=== PATIENT | female | born 1950 | race American Indian/Alaskan Native ===

== ENCOUNTER 2020-09-15 12:39 | Inpatient (IN) | payer MEDICARE, BC, SELFPAY ==
[2020-09-15 14:10] VITALS: BP 181/106; PULSE 80; RESP 16; TEMP 37; O2SAT 97; BMI 18.8
--- NOTE | 2020-09-15 15:44 | ECG_ITS ---
Test Reason : HEADACHE, MEMORY LOSS Blood Pressure : / mmHG Vent. Rate : 076 BPM Atrial Rate : 076 BPM P-R Int : 134 ms QRS Dur : 080 ms QT Int : 378 ms P-R-T Axes : 073 052 080 degrees QTc Int : 425 ms Normal sinus rhythm Possible Left atrial enlargement Nonspecific T wave abnormality Anterior leads Abnormal ECG When compared with ECG of 27-JAN-2012 01:21, Nonspecific T wave abnormality has replaced inverted T waves in Anterior leads Referred By: Marcia Vasquez Electronically Signed By:MERLYN TAYLOR MD
--- NOTE | 2020-09-15 15:44 | XR_ITS ---
EXAMINATION: XR CHEST CLINICAL INFORMATION: Memory loss COMPARISON: Chest x-ray 02/17/2014 TECHNIQUE: Frontal portable view of the chest was obtained. 3:48 PM FINDINGS: Lungs are clear. No pulmonary vascular congestion. There is no pleural effusion. The heart size is normal. The cardiac and mediastinal contours are normal. There are calcifications of the thoracic aorta. No acute osseous abnormality. No significant change since prior chest x-ray. XR/XR chest 1V IMPRESSION: There is no acute abnormality of the chest.
--- NOTE | 2020-09-15 15:45 | CT_ITS ---
EXAMINATION: CT HEAD WITHOUT CONTRAST CLINICAL INFORMATION: Sudden onset memory loss. Vomiting. Headache for 2 days. COMPARISON: CT head 01/27/2012 TECHNIQUE: Contiguous axial imaging was performed from the skull base to vertex without intravenous administration of contrast. Coronal and sagittal reformatted images are performed at the CT scanner This CT examination was performed using dose optimization techniques as appropriate, variously including the following: *Automated exposure control *Adjustment of mA and/or kV according to patient size (this includes techniques or standardized protocols for targeted exams where dose is matched to indication/reason for exam; i.e. extremities or head) *Use of iterative reconstruction technique DLP: 574 mGy-cm FINDINGS: There is no evidence of acute intracranial hemorrhage or territorial infarction. No abnormal mass effect or midline shift is seen. Reddy to white matter differentiation is well preserved. No extra-axial fluid collections are identified. The ventricles are normal in size. There is no abnormal attenuation within the brain parenchyma. There are vascular calcifications of the internal carotid arteries bilaterally at the carotid artery siphon. The osseous structures and soft tissues are normal. The mastoid air cells and visualized portions of the paranasal sinuses are well aerated. CT/CT head/brain wo con IMPRESSION: No acute intracranial pathology.
--- NOTE | 2020-09-15 15:47 | ED_ITS ---
HPI - Headache General Chief Complaint: Headache Stated Complaint: headache,memory loss Time Seen by Provider: 09/15/20 15:31 Source: patient Mode of arrival: ambulatory History of Present Illness HPI Narrative: 70-year-old female with a past medical history of anxiety/depression, asthma, GERD, DVT, hyperlipidemia, hypertension, tubular ad enoma of colon and secondary malignant neoplasm of retroperitoneum and peritoneum, presenting to ED with headache x2 days, 1 episode of emesis this morning at 9:30 a.m. followed by confusion/memory loss per . Has reports patient unable to remember people living in the house/son leaving 2 weeks ago. Patient reports to me does not remember having headache, does not remember, to hospital. Reports headache, neck pain, and nausea at present. Patient takes Eliquis. Denies recent fall/head trauma, vision changes, CP/SOB, numbness/tingling MD elicited complaint: headache Related Data Home Medications Medication Instructions Recorded Confirmed albuterol sulfate 90 mcg/actuation 2 puff INHALATION Q4-6H PRN 08/12/20 08/12/20 aerosol inhaler apixaban 2.5 mg tablet 2.5 mg PO BID 08/12/20 08/12/20 budesonide-formoterol HFA 160 2 puff INHALATION BID 08/12/20 08/12/20 mcg-4.5 mcg/actuation aerosol inhaler cholecalciferol (vitamin D3) 25 25 mcg PO DAILY 08/12/20 08/12/20 mcg (1,000 unit) capsule cyanocobalamin (vitamin B-12) 1,000 mcg PO DAILY 08/12/20 08/12/20 1,000 mcg capsule duloxetine 60 mg capsule,delayed 60 mg PO DAILY 08/12/20 08/12/20 release hydromorphone 4 mg tablet 4 mg PO Q6H PRN 08/12/20 08/12/20 omeprazole 20 mg capsule,delayed 20 mg PO DAILY 08/12/20 08/12/20 release Previous Rx's Medication Instructions Recorded zolpidem 10 mg tablet 10 mg PO BEDTIME PRN 90 Days #90 08/11/20 tab cyclobenzaprine 10 mg tablet 10 mg PO BID PRN #60 tab 09/02/20 Allergies Allergy/AdvReac Type Severity Reaction Status Date / Time lisinopril [LISINOPRIL] Allergy Unknown COUGH, Unverified 08/12/20 12:54 constant cough simvastatin [SIMVASTATIN] Allergy Unknown UNKNOWN Unverified 08/12/20 12:54 Review of Systems Review of Systems: Constitutional: No Weight loss, No Fever, No Chills, No Malaise ENT/Mouth: No Nasal Congestion, No sore throat, No Rhinorrhea, No Swallowing Di fficulty, +neck pain Eyes: No Eye Pain, No Swelling, No Redness, No Foreign Body, No Discharge, No V ision Changes Cardiovascular: No Chest Pain, No SOB Respiratory: No Cough, No Sputum, No Dyspnea Gastrointestinal: +Nausea, + Vomiting, No Constipation,+Abdominal pain Genitourinary: No Dysuria Skin: No Skin Lesions, No rash Neuro: No Weakness, No Numbness, No Paresthesias, No Loss of Consciousness, +Headache, +memory loss Yes all other systems are reviewed and are negative [facility] Past Medical History Attestation statement: The following information was validated with the patient. Medical History (Updated 09/15/20 @ 16:38 by OLIVER Evans) Anxiety and depression Asthma Chronic low back pain GERD (gastroesophageal reflux disease) History of DVT (deep vein thrombosis) Hypercholesterolemia Hypertension Insomnia Secondary malignant neoplasm of retroperitoneum and peritoneum Tubular adenoma of colon Vitamin B12 deficiency Vitamin D deficiency Surgical History (Updated 08/11/20 @ 16:41 by Chiara Diggs MD) History of back surgery History of section History of nephroureterectomy History of tonsillectomy History of tubal ligation Retroperitoneal liposarcoma Family History Family History (Updated 08/11/20 @ 13:22 by ESME Hamilton) Father Myocardial infarction CVD (cardiovascular disease) Mother CVD (cardiovascular disease) Stroke Brother Myocardial infarction CVD (cardiovascular disease) Social History Social History Advance Directives: No Advance Directives Information Provided: Yes Physical Exam Vital Signs: Vital Signs: Last Vital Signs Temp 99.2 F 09/15/20 16:10 Pulse 79 09/15/20 16:41 Resp 18 09/15/20 16:41 BP 192/110 H 09/15/20 16:41 Pulse Ox 98 09/15/20 16:41 Body Mass Index 18.8 Const: General: cooperative and healthy appearing Orientation/consciousness: patient oriented x3 Limitations: no limitations HENMT: Head: Yes normal to inspection Ears: hearing grossly normal bilaterally General nose exam: Normal external nose present Face and sinus: Yes normal facial exam Eyes: General: appearance normal, both eyes and all related structures Pupils: Equal, round and reactive pupils present EOM: EOMs intact bilaterally Neck: Neck: Yes normal visual inspection and Yes no meningeal signs Resp: Effort & Inspection: normal respiratory effort Auscultation: clear to auscultation bilaterally, no rhonchi and no wheezes Cardio: Rate: regular rate Heart sounds: S1 normal heart sound present and S2 normal heart sound present GI: Inspection: Yes normal to inspection Palpation (GI): Soft to palpation, Tenderness to palpation present (GI) (diffusely), no guarding and not rigid Skin: Rashes: no rashes Wounds: no wounds Neuro: Other: + memory loss but A&O x3 General: patient oriented x3, tone normal, moves all extremities, no meningeal signs, no focal motor deficits and CN's II-XI intact bilaterally Cranial nerves: Yes Equal, round and reactive pupils present Cognition (Neuro): normal cognition Gait exam (Neuro): Normal gait present Motor exam (neuro): 5/5 motor strength present throughout Coordination: [id number] test normal Extrem: General: Yes normal to inspection Course Course Course Narrative: EKG with inverted Ts in aVL, V1 and V2 (unable to see priors) -1700--ED care transferred to [place] pending labs/imaging, and anticipated admission MDM - Headache MDM Narrative Medical decision making narrative: 70-year-old female with a past medical history of anxiety/depression, asthma, GERD, DVT, hyperlipidemia, hypertension, tubular adenoma of colon and secondary malignant neoplasm of retroperitoneum and peritoneum, presenting to ED with headache x2 days, 1 episode of emesis this morning at 9:30 a.m. followed by confusion/memory loss per . On exam low-grade temp 99.2?, NAD, no focal neuro deficits, A&O x3 but with acute memory loss. Concern for CVA/SAH vs transient amnesia vs infectious or metabolic etiology. Low concern for meningitis/encephalitis Plan: EKG, labs, UA, head CT, CXR, anticipated admission Lab Data Result diagrams: 09/15/20 16:19 09/15/20 16:19 Labs: Lab Results 11/11/20 11/11/20 11/11/20 Range/Units 16:19 16:19 16:19 WBC 4.9 (4.8-10.8) X10*3/uL RBC 4.41 (4.20-5.50) X10*6/uL Hgb 12.9 (12.0-16.0) g/dl Hct 39.0 (37-47) % MCV 88.4 (80-98) fL MCH 29.3 (27.0-33.0) pg MCHC 33.1 (31.0-35.0) g/dl RDW 15.2 (11.0-16.0) % Plt Count 249 (160-400) X10*3/uL MPV 9.3 L (9.4-12.3) fL Immature Gran % (Auto) 0.4 (0.0-0.4) % Neut % (Auto) 69.6 (45-73) % Lymph % (Auto) 20.5 (20-40) % [place] % (Auto) 5.9 (2-11) % Eos % (Auto) 2.8 (0-4) % Baso % (Auto) 0.8 (0-2) % Lymph # (Auto) 1.0 L (1.2-4.9) X10*3/uL [place] # (Auto) 0.3 (0.1-1.2) X10*3/uL Eos # (Auto) 0.1 (0.0-0.4) X10*3/uL Baso # (Auto) 0.0 (0.0-0.2) X10*3/uL Abs Immat Gran (auto) 0.02 (0.00-0.03) X10*3/uL Absolute Neuts (auto) 3.4 (2.0-8.3) X10*3/uL Absolute Nucleated RBC 0.000 (0.0-0.012) X10*3/uL Nucleated RBC % (auto) 0.0 (0.0-0.2) /100WBC PT (10.8-13.0) SEC INR (0.9-1.1) APTT (24.1-38.0) SEC Hold Blue Top SEE NOTE Sodium 137 (135-145) mmol/L Potassium 4.1 (3.3-5.1) mmol/l Chloride 103 (96-108) mmol/L Carbon Dioxide 23 (22-29) mmol/L Anion Gap 15 (12-20) BUN 14 (9-16) mg/dL Creatinine 0.92 (0.5-1.4) mg/dL Estim Creat Clear Calc 48.4 Estimated GFR > 60 Random Glucose 96 (60-115) mg/dL Calcium 9.1 (8.4-10.2) mg/dL Magnesium 1.8 (1.6-2.6) mg/dL Total Bilirubin 0.5 (0.0-1.0) mg/dL Direct Bilirubin 0.2 (0.0-0.5) mg/dL AST 14 (5-31) U/L ALT 9 (0-31) U/L Alkaline Phosphatase 96 (39-117) U/L Troponin I High Sens (<3.5-17.0) ng/L Total Protein 6.1 L (6.5-8.0) g/dL Albumin 3.7 (3.5-5.0) g/dL Lipase (8-78) U/L Urine Color Urine Appearance Urine pH (5.0-8.0) Ur Specific [place] (1.005-1.025) Urine Protein (NEG-TRACE) MG/DL Urine Glucose (UA) (NEG) MG/DL Urine Ketones (NEG) MG/DL Urine Blood (NEG) Urine Nitrite (NEG) Ur Leukocyte Esterase (NEG) 09/15/20 09/15/20 09/15/20 Range/Units 16:19 16:19 16:19 WBC (4.8-10.8) X10*3/uL RBC (4.20-5.50) X10*6/uL Hgb (12.0-16.0) g/dl Hct (37-47) % MCV (80-98) fL MCH (27.0-33.0) pg MCHC (31.0-35.0) g/dl RDW (11.0-16.0) % Plt Count (160-400) X10*3/uL MPV (9.4-12.3) fL Immature Gran % (Auto) (0.0-0.4) % Neut % (Auto) (45-73) % Lymph % (Auto) (20-40) % [place] % (Auto) (2-11) % Eos % (Auto) (0-4) % Baso % (Auto) (0-2) % Lymph # (Auto) (1.2-4.9) X10*3/uL [place] # (Auto) (0.1-1.2) X10*3/uL Eos # (Auto) (0.0-0.4) X10*3/uL Baso # (Auto) (0.0-0.2) X10*3/uL Abs Immat Gran (auto) (0.00-0.03) X10*3/uL Absolute Neuts (auto) (2.0-8.3) X10*3/uL Absolute Nucleated RBC (0.0-0.012) X10*3/uL Nucleated RBC % (auto) (0.0-0.2) /100WBC PT 11.0 (10.8-13.0) SEC INR 0.9 (0.9-1.1) APTT 36.1 (24.1-38.0) SEC Hold Blue Top Sodium (135-145) mmol/L Potassium (3.3-5.1) mmol/l Chloride (96-108) mmol/L Carbon Dioxide (22-29) mmol/L Anion Gap (12-20) BUN (9-16) mg/dL Creatinine (0.5-1.4) mg/dL Estim Creat Clear Calc Estimated GFR Random Glucose (60-115) mg/dL Calcium (8.4-10.2) mg/dL Magnesium (1.6-2.6) mg/dL Total Bilirubin (0.0-1.0) mg/dL Direct Bilirubin (0.0-0.5) mg/dL AST (5-31) U/L ALT (0-31) U/L Alkaline Phosphatase (39-117) U/L Troponin I High Sens 10.2 (<3.5-17.0) ng/L Total Protein (6.5-8.0) g/dL Albumin (3.5-5.0) g/dL Lipase 11 (8-78) U/L Urine Color Urine Appearance Urine pH (5.0-8.0) Ur Specific [place] (1.005-1.025) Urine Protein (NEG-TRACE) MG/DL Urine Glucose (UA) (NEG) MG/DL Urine Ketones (NEG) MG/DL Urine Blood (NEG) Urine Nitrite (NEG) Ur Leukocyte Esterase (NEG) 09/15/20 Range/Units 16:24 WBC (4.8-10.8) X10*3/uL RBC (4.20-5.50) X10*6/uL Hgb (12.0-16.0) g/dl Hct (37-47) % MCV (80-98) fL MCH (27.0-33.0) pg MCHC (31.0-35.0) g/dl RDW (11.0-16.0) % Plt Count (160-400) X10*3/uL MPV (9.4-12.3) fL Immature Gran % (Auto) (0.0-0.4) % Neut % (Auto) (45-73) % Lymph % (Auto) (20-40) % [place] % (Auto) (2-11) % Eos % (Auto) (0-4) % Baso % (Auto) (0-2) % Lymph # (Auto) (1.2-4.9) X10*3/uL [place] # (Auto) (0.1-1.2) X10*3/uL Eos # (Auto) (0.0-0.4) X10*3/uL Baso # (Auto) (0.0-0.2) X10*3/uL Abs Immat Gran (auto) (0.00-0.03) X10*3/uL Absolute Neuts (auto) (2.0-8.3) X10*3/uL Absolute Nucleated RBC (0.0-0.012) X10*3/uL Nucleated RBC % (auto) (0.0-0.2) /100WBC PT (10.8-13.0) SEC INR (0.9-1.1) APTT (24.1-38.0) SEC Hold Blue Top Sodium (135-145) mmol/L Potassium (3.3-5.1) mmol/l Chloride (96-108) mmol/L Carbon Dioxide (22-29) mmol/L Anion Gap (12-20) BUN (9-16) mg/dL Creatinine (0.5-1.4) mg/dL Estim Creat Clear Calc Estimated GFR Random Glucose (60-115) mg/dL Calcium (8.4-10.2) mg/dL Magnesium (1.6-2.6) mg/dL Total Bilirubin (0.0-1.0) mg/dL Direct Bilirubin (0.0-0.5) mg/dL AST (5-31) U/L ALT (0-31) U/L Alkaline Phosphatase (39-117) U/L Troponin I High Sens (<3.5-17.0) ng/L Total Protein (6.5-8.0) g/dL Albumin (3.5-5.0) g/dL Lipase (8-78) U/L Urine Color YELLOW Urine Appearance CLEAR Urine pH 5.5 (5.0-8.0) Ur Specific [place] 1.020 (1.005-1.025) Urine Protein NEG (NEG-TRACE) MG/DL Urine Glucose (UA) NEG (NEG) MG/DL Urine Ketones NEG (NEG) MG/DL Urine Blood NEG (NEG) Urine Nitrite NEG (NEG) Ur Leukocyte Esterase NEG (NEG) Discharge Plan Discharge Clinical Impression: Memory deficit, Headache Prescriptions: No Action zolpidem 10 mg tablet 10 mg PO BEDTIME PRN (Reason: insomnia) 90 Days Qty: 90 RF: 0 cyclobenzaprine 10 mg tablet 10 mg PO BID PRN (Reason: muscle spasm) Qty: 60 RF: 3 Eliquis 2.5 mg tablet 2.5 mg PO BID RF: 0 duloxetine 60 mg capsule,delayed release(DR/EC) 60 mg PO DAILY RF: 0 hydromorphone 4 mg tablet 4 mg PO Q6H PRNRF: 0 omeprazole 20 mg capsule,delayed release(DR/EC) 20 mg PO DAILY RF: 0 albuterol sulfate [ProAir HFA] 90 mcg/actuation HFA aerosol inhaler 2 puff inhalation Q4-6H PRNRF: 0 budesonide-formoterol [Symbicort] 160-4.5 mcg/actuation HFA aerosol inhaler 2 puff inhalation BID RF: 0 cholecalciferol (vitamin D3) 25 mcg (1,000 unit) capsule 25 mcg PO DAILY RF: 0 cyanocobalamin (vitamin B-12) 1,000 mcg capsule 1,000 mcg PO DAILY RF: 0
--- NOTE | 2020-09-15 15:47 | CT_ITS ---
EXAMINATION: CT ABDOMEN AND PELVIS WITH CONTRAST CLINICAL INFORMATION: Diffuse abdominal pain. Tenderness. COMPARISON: CT scan abdomen 07/24/2018. MR abdomen 06/17/2018 TECHNIQUE: Multidetector volumetric images were obtained from the superior aspect of the liver through the pubic symphysis following administration 85 mL of Omnipaque 350 intravenous contrast. Sagittal and coronal reformatted images were obtained on the technologist's workstation. Oral contrast: No This CT examination was performed using dose optimization techniques as appropriate, variously including the following: *Automated exposure control *Adjustment of mA and/or kV according to patient size (this includes techniques or standardized protocols for targeted exams where dose is matched to indication/reason for exam; i.e. extremities or head) *Use of iterative reconstruction technique DLP: 454 mGy-cm FINDINGS: LUNG BASES: The visualized lung bases are unremarkable. LIVER, GALLBLADDER, AND BILIARY TREE: The liver is normal in size, shape, and attenuation. No focal hepatic lesion or biliary ductal dilatation is present. The gallbladder is unremarkable with no evidence of radiopaque gallstones, gallbladder wall thickening, or obvious pericholecystic inflammatory changes. PANCREAS: Unremarkable. SPLEEN: Unremarkable. ADRENAL GLANDS: Unremarkable. KIDNEYS AND URETERS: Right kidney is absent. The left kidney is normal. No calculus or hydronephrosis. BLADDER: Unremarkable. GASTROINTESTINAL TRACT: Status post partial resection right colon. Surgical anastomosis at the hepatic flexure. Surgical sutures also associated with the stomach and proximal small bowel loops, bypass surgery. No acute changes of the bowel. There is no bowel wall thickening /edema. There is no bowel obstruction. There is a moderate volume of stool in the colon. The small bowel loops are unremarkable.. ABDOMINAL WALL: No significant hernia is appreciated. LYMPH NODES: Normal. VASCULAR: Atherosclerotic vascular calcifications of aorta and iliac arteries. There is no aneurysm. PELVIC VISCERA: Unremarkable. OSSEOUS STRUCTURES: Multilevel degenerative spondylosis spine. Grade 1 anterolisthesis of L4 on L5 due to facet joint disease. There is no spondylolysis. CT/CT abdomen pelvis w con IMPRESSION: No acute abnormality CT scan abdomen and pelvis.
[2020-09-15 16:10] VITALS: BP 163/96; PULSE 74; RESP 18; TEMP 37.3; O2SAT 95
[2020-09-15 16:27] LABS: MANUAL DIFF FLAG NO
[2020-09-15 16:29] LABS: Glucose Urine UA NEG (NEG); Leukocyte Esterase Urine NEG (NEG); Nitrite Urine NEG (NEG); PH 5.5 (5.0-8.0); Urine Blood NEG (NEG); Urine Ketones NEG (NEG); Urine Protein NEG (NEG-TRACE)
[2020-09-15 16:30] LABS: Appearance Urine CLEAR; Color Urine YELLOW
[2020-09-15 16:33] LABS: Basophils Percent Auto 0.8 % (0-2); Eosinophils Absolute Auto 0.1 X10*3/uL (0.0-0.4); Eosinophils Percent Auto 2.8 % (0-4); Hemoglobin 12.9 g/dl (12.0-16.0); Imm Gran Abs Auto 0.02 X10*3/uL (0.00-0.03); Imm Gran Pct Auto 0.4 % (0.0-0.4); Lymphocytes Percent Auto 20.5 % (20-40); Mean Corpuscular HGB Conc 33.1 g/dl (31.0-35.0); Mean Corpuscular Hemoglobin 29.3 pg (27.0-33.0); Mean Corpuscular Volume 88.4 fL (80-98); Mean Platelet Volume 9.3 fL (9.4-12.3); Monocytes Absolute Auto 0.3 X10*3/uL (0.1-1.2); Monocytes Percent Auto 5.9 % (2-11); Neutrophils Absolute Auto 3.4 X10*3/uL (2.0-8.3); Neutrophils Percent Auto 69.6 % (45-73); Platelet Count 249 X10*3/uL (160-400); Red Blood Count 4.41 X10*6/uL (4.20-5.50); Red Cell Distribution Width 15.2 % (11.0-16.0); White Blood Count 4.9 X10*3/uL (4.8-10.8)
[2020-09-15 16:34] LABS: INTERNATIONAL NORM RATIO 0.9 (0.9-1.1)
[2020-09-15] MEDS: ondansetron HCL 4 MG/2 ML VIAL IVPUSH (16:36)
[2020-09-15 16:37] LABS: Partial Thromboplastin Time 36.1 SEC (24.1-38.0)
[2020-09-15 16:41] VITALS: BP 192/110; PULSE 79; RESP 18; O2SAT 98
[2020-09-15 17:05] LABS: Alanine Aminotransferase 9 U/L (0-31); Albumin Level 3.7 g/dL (3.5-5.0); Alkaline Phosphatase 96 U/L (39-117); Anion Gap 15 (12-20); Aspartate Amino Transferase 14 U/L (5-31); Bilirubin Direct 0.2 mg/dL (0.0-0.5); Bilirubin Total 0.5 mg/dL (0.0-1.0); Blood Urea Nitrogen 14 mg/dL (9-16); Calcium 9.1 mg/dL (8.4-10.2); Carbon Dioxide 23 mmol/L (22-29); Chloride 103 mmol/L (96-108); Creatinine Clr Calc Pharmacy 48.4; Estimated Glomerular Filt Rate > 60; Glucose Random 96 mg/dL (60-115); Lipase 11 U/L (8-78); Magnesium 1.8 mg/dL (1.6-2.6); Potassium 4.1 mmol/l (3.3-5.1); Sodium 137 mmol/L (135-145); Total Protein 6.1 g/dL (6.5-8.0)
[2020-09-15 17:08] LABS: Troponin-I High Sensitivity 10.2 ng/L (<3.5-17.0)
[2020-09-15] MEDS: iohexoL 350 MG/ML 100 ML INFUS..BTL IV (18:07)
[2020-09-15 18:37] LABS: Amphetamine Screen Urine Not Detected (Not Detect); Barbiturates, Urine Not Detected (Not Detect); Benzodiazepines Screen Urine Not Detected (Not Detect); Cannabinoid Screen Urine POSITIVE (Not Detect); Cocaine Screen Urine Not Detected (Not Detect); Opiate Screen Urine POSITIVE (Not Detect); Phencyclidine Screen Urine Not Detected (Not Detect)
[2020-09-15 18:55] VITALS: BP 177/102; PULSE 83; RESP 16; TEMP 37.2; O2SAT 98
[2020-09-15 19:36] LABS: Salicylate < 5.0 mg/dL (15-30)
[2020-09-15 19:49] LABS: Acetaminophen LAB 1 mcg/mL (<30)
[2020-09-15 20:00] VITALS: BP 174/104; PULSE 82; RESP 18; TEMP 36.6
[2020-09-15] MEDS: Acetaminophen 325 MG TABLET 650 MG PO (21:16)
[2020-09-15 22:40] LABS: COVID-19 Test Negative (Negative)
--- NOTE | 2020-09-16 | CT_ITS ---
EXAMINATION: CT ANGIOGRAM HEAD CT ANGIOGRAM NECK CLINICAL INFORMATION: Sudden onset memory loss. COMPARISON: CT head from 09/15/2020. TECHNIQUE: Initial noncontrast process development manager imaging of the head and neck was performed. Comparison is made with noncontrast head CT from earlier today. Test bolus sequences followed by intravenous administration 70 mL of Omnipaque 350. Helical imaging was performed in the axial plane from the aortic arch to the skull vertex. Delayed postcontrast imaging of the head was also performed. The data was processed at the special procedure technologist's workstation for generation of MIP sequences. Angled MIPs and volume rendered reformatted images were also generated at an offline 3D workstation. Stenoses are assessed in accordance with NASCET criteria unless otherwise indicated. DLP: 1549 mGy-cm This CT examination was performed using dose optimization techniques as appropriate, variously including the following: *Automated exposure control. *Adjustment of mA and/or kV according to patient size (this includes techniques or standardized protocols for targeted exams where dose is matched to indication/reason for exam; i.e. extremities or head). *Use of iterative reconstruction technique. FINDINGS: CT Head: There is no evidence of acute intracranial hemorrhage or edematous territorial infarction. A few foci of hypoattenuation in the periventricular and deep white matter are consistent with mild microangiopathy. Reddy-white matter differentiation is preserved. The ventricles are normal in size and configuration. No evidence for obstructive hydrocephalus. No abnormal mass effect or midline shift. No extra-axial fluid collections. No pathologic intra-axial enhancement or regional oligemia. Partially calcified 1.2 cm subcutaneous inclusion cyst along the posterior vertex. No acute soft tissue or osseous abnormalities. Moderate mucosal thickening of the paranasal sinuses. The mastoid air cells and middle ear cavities are clear. CT Neck: The thyroid gland and remaining cervical soft tissues are within normal limits. Straightening of the normal cervical lordosis. Advanced degenerative disc disease from C4-C7 with disc-osteophyte complexes. Facet and uncovertebral joint arthropathy leads to osseous encroachment on the neural foramina from C4 to C7. CT Upper Chest: Coronary artery calcifications. Mild diffuse peribronchial wall thickening. Otherwise, the visualized lung apices and upper mediastinum are within normal limits. Neck CTA: Aortic Arch: Normal contour and caliber with mild calcific atherosclerotic disease. Classic 3 vessel branching pattern of the aortic arch. Great Vessel Origins: No significant stenosis of the branch origins. Right Common Carotid Artery: Normal opacification without focal stenosis or occlusion. Cervical Right Internal Carotid Artery: Calcific atherosclerotic disease of the carotid bulb and proximal internal carotid artery causing less than 50% stenosis. Left Common Carotid Artery: Normal opacification without focal stenosis or occlusion. Cervical Left Internal Carotid Artery: Calcific atherosclerotic disease of the carotid bulb and proximal internal carotid artery causing less than 50% stenosis. Cervical Right Vertebral Artery: Dominant. Calcific atherosclerotic disease causes mild narrowing of the origin. Otherwise, normal opacification without focal stenosis or occlusion. Cervical Left Vertebral Artery: Atherosclerotic disease causes high-grade stenosis of the origin. There is diminutive irregular opacification of the V1 and proximal V2 segment. Reconstitution of relatively normal caliber of the distal V2 segment at the level of C2. Relatively normal opacification of the V3 segment. Brain CTA: Intracranial Internal Carotid Arteries: Calcific atherosclerotic disease of the intracranial internal carotid arteries without occlusion or flow-limiting stenosis. Normal contrast opacification of the petrous, cavernous, paraophthalmic, and supraclinoid segments of the internal carotid arteries without focal stenosis. Right Anterior Cerebral Artery: Normal A1 segment. Normal opacification of the distal segments of the XAVI. Left Anterior Cerebral Artery: Normal A1 segment. Normal opacification of the distal segments of the XVAI. Anterior Communicating Artery: Normal. Right Middle Cerebral Artery: Normal opacification of the M1 segment of the MCA without focal stenosis or occlusion. Normal arborization of the distal segments. Left Middle Cerebral Artery: Normal opacification of the M1 segment of the MCA without focal stenosis or occlusion. Normal arborization of the distal segments. Right Vertebral Artery: The proximal V4 segment is normal in appearance. Normal opacification of the proximal segments of the posterior inferior cerebellar artery. Left Vertebral Artery: Mild to moderate irregular narrowing of the V4 segment of the left vertebral artery. Normal opacification of the proximal segments of the posterior inferior cerebellar artery. Basilar Artery: Normal opacification without focal stenosis or occlusion. Normal appearance of the proximal superior cerebellar arteries. Right Posterior Cerebral Artery: Normal P1 segment. Normal opacification of the distal segments of the HEAT TREATER. Left Posterior Cerebral Artery: The P1 segment is mildly diminutive. origin of the HEAT TREATER with robust opacification of the posterior communicating artery. Normal opacification of the distal segments of the HEAT TREATER. Normal opacification of the superior sagittal, straight, transverse, and sigmoid sinuses. CT/CT angio head neck IMPRESSION: 1. No evidence of acute intracranial hemorrhage or edematous territorial infarction. 2. Mild underlying microangiopathy. 3. CTA of the head and neck without proximal occlusion. 4. Calcific atherosclerotic disease causes less than 50% stenosis of the bilateral carotid bulbs. Atherosclerotic high-grade narrowing of the origin of the left vertebral artery with diminutive opacification of the V1 and V2 segments. There is reconstitution of the V3 segment of the left vertebral artery. Atherosclerotic disease causes mild to moderate narrowings of the left greater than right V4 segments of the bilateral vertebral arteries. 5. Moderate multilevel degenerative spondyloarthropathy of the cervical spine.
--- NOTE | 2020-09-16 00:23 | MR_ITS ---
EXAMINATION: MR BRAIN WITHOUT CONTRAST CLINICAL INFORMATION: Amnesia. COMPARISON: CTA head and neck from 09/16/2020. TECHNIQUE: MRI of the brain was obtained using routine sequences without contrast. FINDINGS: No focal restricted diffusion is demonstrated to suggest acute or subacute cerebral ischemia. No evidence of acute or chronic hemorrhagic products on heme-sensitive imaging. Basal ganglia mineralization. Few scattered periventricular and deep white matter T2 FLAIR hyperintensities consistent with mild underlying microangiopathy. The ventricles are normal in morphology and size. No abnormal mass effect. No midline shift. Normal appearance of the pituitary gland. No abnormalities of the posterior fossa with normal appearance of the brainstem and cerebellum. Normal arterial and venous vascular flow voids are present. There is a 1.2 cm subcutaneous inclusion cyst along the posterior vertex. Normal, homogeneous marrow signal. Mild mucosal thickening of the paranasal sinuses. Trace left-sided mastoid effusion. No signal abnormalities within the right-sided mastoid. MR/MR head/brain wo con IMPRESSION: 1. No acute intracranial abnormalities. 2. Mild underlying microangiopathy.
--- NOTE | 2020-09-16 00:27 | PC.NURSE ---
report given, pt ready for transport to floor.
[2020-09-16 00:44] VITALS: BP 168/88; PULSE 77; RESP 18; TEMP 36.6; O2SAT 97
[2020-09-16 01:01] VITALS: BMI 18.9
[2020-09-16] MEDS: 0.9 % Sodium Chloride Flush 3 ML SYRINGE IVFLUSH ×2 (01:06→10:41)
[2020-09-16] MEDS: Zolpidem Tartrate 5 MG TABLET 10 MG PO (01:59)
[2020-09-16] MEDS: Morphine Sulfate 4 MG/ML CARTRIDGE IVPUSH (02:00)
[2020-09-16 03:57] VITALS: BP 122/72; PULSE 80; RESP 18; TEMP 36.9; O2SAT 98
--- NOTE | 2020-09-16 05:58 | P.HPHOSP_ITS ---
History of Present Illness Date of Service: 09/15/20 Chief Complaint: memory loss, headache this is a 70-year-old female with past medical history of DVT, liposarcoma chronic back pain, asthma, GERD, anxiety and depression who presents to the hospital with memory loss. per patient and her at bedside patient woke up this morning, was nauseous but then started asking strange questions, she could remember her son did not live with them anymore, she is not remember that he travel 2 weeks ago to [place], she kept asking the same information and was not able to retain any in your information. She was not able to remember any days, she could not remember some of her grandchildren's names, she was able to remember her , she does not remember the events of the prior days. She felt soreness in her arms with no weakness tingling or numbness in any of her extremities. She had no slurred speech or any drooping of the face. According to her he feels that her symptoms are improving since being in the hospital. Patient is complaining of a severe headache that is frontal and also occipital in location. She denies any change in vision, no chest pain, no shortness of breath, no ab dominal pain nausea or vomiting, no diarrhea or constipation at this time. No urinary symptoms and no lower extremity edema. On arrival to the ED hemodynamically stable with a blood pressure of 181/106, labs unremarkable, UDS positive for urine opiates, and marijuana. COVID-[address] head showed no acute intracranial abnormality past medical history: Liposarcoma, DVT, asthma, chronic back pain, anxiety and depression, past surgical history: removal of liposarcoma from abdomen, reports radical abdominal resection in November 2018 with residual abdominal pain since. family history: Significant for coronary artery disease Social history: Comes from home, lives with her , denies any tobacco alcohol or illicit drugs at this time Review of Systems Review of Systems: Yes all other systems are reviewed and are negative [facility] Medical History Anxiety and depression Asthma Chronic low back pain GERD (gastroesophageal reflux disease) History of DVT (deep vein thrombosis) Hypercholesterolemia Hypertension Insomnia Secondary malignant neoplasm of retroperitoneum and peritoneum Tubular adenoma of colon Vitamin B12 deficiency Vitamin D deficiency Family History (Updated 08/11/20 @ 13:22 by Yasmin Arreguin Fabby) Father Myocardial infarction CVD (cardiovascular disease) Mother CVD (cardiovascular disease) Stroke Brother Myocardial infarction CVD (cardiovascular disease) Surgical History History of back surgery History of section History of nephroureterectomy History of tonsillectomy History of tubal ligation Retroperitoneal liposarcoma Social History Household Members: Spouse and Family Housing: House Do you presently have visiting nurse or other home services: No Alcohol intake: never Smoking Status: Never smoker Use of substances other than those prescribed or required for medical reasons: Yes Substance Use Type: Marijuana and Other Substance Use Type Other:: THC Substance Use Frequency: Daily Have you been hit, kicked, punched, or otherwise hurt by someone within the past year? If so, by whom?: No Do you feel safe in your current relationship?: Yes Is there a partner from a previous relationship who is making you feel unsafe now?: No Are you made to feel afraid or neglected: No Advance Directives: No Advance Directives Information Provided: Yes Do you have thoughts of harming others: None Do you have a plan to hurt others: No Plan Recently lost weight without trying: Yes Meds Allergies Allergy/AdvReac Type Severity Reaction Status Date / Time lisinopril [LISINOPRIL] Allergy Intermediate COUGH, Verified 09/16/20 01:02 constant cough simvastatin [SIMVASTATIN] Allergy Mild Confusion Verified 09/16/20 01:03 Home Medications Medication Instructions Recorded Confirmed Type albuterol sulfate 90 mcg/actuation 2 puff INHALATION Q4-6H PRN 08/12/20 09/15/20 History aerosol inhaler apixaban 2.5 mg tablet 5 mg PO BID 08/12/20 09/15/20 History budesonide-formoterol HFA 160 2 puff INHALATION BID 08/12/20 09/15/20 History mcg-4.5 mcg/actuation aerosol inhaler cholecalciferol (vitamin D3) 25 25 mcg PO DAILY 08/12/20 09/15/20 History mcg (1,000 unit) capsule cyanocobalamin (vitamin B-12) 1,000 mcg PO DAILY 08/12/20 09/15/20 History 1,000 mcg capsule duloxetine 60 mg capsule,delayed 60 mg PO DAILY 08/12/20 09/15/20 History release hydromorphone 4 mg tablet 4 mg PO Q6H PRN 08/12/20 09/15/20 History omeprazole 20 mg capsule,delayed 20 mg PO DAILY 08/12/20 09/15/20 History release sucralfate 10 ml PO BID 09/15/20 09/15/20 History Physical Exam Vital Signs and Narrative: Vital Signs: Last Vital Signs Temp 98.5 F 09/16/20 03:57 Pulse 80 09/16/20 03:57 Resp 18 09/16/20 03:57 BP 122/72 09/16/20 03:57 Pulse Ox 98 09/16/20 03:57 Body Mass Index 18.9 Const: General: cooperative, no acute distress and ill appearing Orientation/consciousness: patient oriented x3 Eyes: General: appearance normal, both eyes and all related structures Pupils: Equal, round and reactive pupils present Resp: Effort & Inspection: normal respiratory effort and able to speak in complete sentences Auscultation: clear to auscultation bilaterally Cardio: Rate: regular rate Rhythm: regular rhythm GI: Palpation (GI): Soft to palpation Auscultation: normal bowel sounds Skin: General skin exam: no rashes or lesions noted Neuro: Other: 5/5 strength, no facial asymmetry, cranial nerves intact, General: patient oriented x3 Cranial nerves: Yes Equal, round and reactive pupils present Cognition (Neuro): normal cognition Extrem: General: Yes normal to inspection and Yes no pedal edema Results Labs CBC and Chem 7: 09/15/20 16:19 09/15/20 16:19 Labs: Laboratory Results - last 24 hr 09/15/20 09/15/20 09/15/20 16:19 16:19 16:19 MCV 88.4 MCH 29.3 MCHC 33.1 RDW 15.2 Plt Count 249 MPV 9.3 L Immature Gran % (Auto) 0.4 Neut % (Auto) 69.6 Lymph % (Auto) 20.5 [place] % (Auto) 5.9 Eos % (Auto) 2.8 Baso % (Auto) 0.8 Lymph # (Auto) 1.0 L [place] # (Auto) 0.3 Eos # (Auto) 0.1 Baso # (Auto) 0.0 Abs Immat Gran (auto) 0.02 Absolute Neuts (auto) 3.4 Absolute Nucleated RBC 0.000 Nucleated RBC % (auto) 0.0 PT INR APTT Hold Blue Top SEE NOTE Anion Gap 15 Estim Creat Clear Calc 48.4 Estimated GFR > 60 Random Glucose 96 Calcium 9.1 Magnesium 1.8 Total Bilirubin 0.5 Direct Bilirubin 0.2 AST 14 ALT 9 Alkaline Phosphatase 96 Troponin I High Sens Total Protein 6.1 L Albumin 3.7 Lipase Urine Color Urine Appearance Urine pH Ur Specific [place] Urine Protein Urine Glucose (UA) Urine Ketones Urine Blood Urine Nitrite Ur Leukocyte Esterase Salicylates Urine Opiates Screen Acetaminophen Ur Barbiturates Screen Ur Phencyclidine Scrn Ur Amphetamines Screen U Benzodiazepines Scrn Urine Cocaine Screen U Marijuana (THC) Screen COVID-19 (KAY) COVID-19 sfilatino 09/15/20 09/15/20 09/15/20 16:19 16:19 16:19 MCV MCH MCHC RDW Plt Count MPV Immature Gran % (Auto) Neut % (Auto) Lymph % (Auto) [place] % (Auto) Eos % (Auto) Baso % (Auto) Lymph # (Auto) [place] # (Auto) Eos # (Auto) Baso # (Auto) Abs Immat Gran (auto) Absolute Neuts (auto) Absolute Nucleated RBC Nucleated RBC % (auto) PT 11.0 INR 0.9 APTT 36.1 Hold Blue Top Anion Gap Estim Creat Clear Calc Estimated GFR Random Glucose Calcium Magnesium Total Bilirubin Direct Bilirubin AST ALT Alkaline Phosphatase Troponin I High Sens 10.2 Total Protein Albumin Lipase 11 Urine Color Urine Appearance Urine pH Ur Specific [place] Urine Protein Urine Glucose (UA) Urine Ketones Urine Blood Urine Nitrite Ur Leukocyte Esterase Salicylates Urine Opiates Screen Acetaminophen Ur Barbiturates Screen Ur Phencyclidine Scrn Ur Amphetamines Screen U Benzodiazepines Scrn Urine Cocaine Screen U Marijuana (THC) Screen COVID-19 (KAY) COVID-19 sfilatino 09/15/20 09/15/20 09/15/20 16:19 16:24 17:52 MCV MCH MCHC RDW Plt Count MPV Immature Gran % (Auto) Neut % (Auto) Lymph % (Auto) [place] % (Auto) Eos % (Auto) Baso % (Auto) Lymph # (Auto) [place] # (Auto) Eos # (Auto) Baso # (Auto) Abs Immat Gran (auto) Absolute Neuts (auto) Absolute Nucleated RBC Nucleated RBC % (auto) PT INR APTT Hold Blue Top Anion Gap Estim Creat Clear Calc Estimated GFR Random Glucose Calcium Magnesium Total Bilirubin Direct Bilirubin AST ALT Alkaline Phosphatase Troponin I High Sens Total Protein Albumin Lipase Urine Color YELLOW Urine Appearance CLEAR Urine pH 5.5 Ur Specific [place] 1.020 Urine Protein NEG Urine Glucose (UA) NEG Urine Ketones NEG Urine Blood NEG Urine Nitrite NEG Ur Leukocyte Esterase NEG Salicylates < 5.0 L Urine Opiates Screen POSITIVE H Acetaminophen 1 Ur Barbiturates Screen Not Detected Ur Phencyclidine Scrn Not Detected Ur Amphetamines Screen Not Detected U Benzodiazepines Scrn Not Detected Urine Cocaine Screen Not Detected U Marijuana (THC) Screen POSITIVE H COVID-19 (KAY) COVID-19 Clin Com 09/15/20 21:55 MCV MCH MCHC RDW Plt Count MPV Immature Gran % (Auto) Neut % (Auto) Lymph % (Auto) [place] % (Auto) Eos % (Auto) Baso % (Auto) Lymph # (Auto) [place] # (Auto) Eos # (Auto) Baso # (Auto) Abs Immat Gran (auto) Absolute Neuts (auto) Absolute Nucleated RBC Nucleated RBC % (auto) PT INR APTT Hold Blue Top Anion Gap Estim Creat Clear Calc Estimated GFR Random Glucose Calcium Magnesium Total Bilirubin Direct Bilirubin AST ALT Alkaline Phosphatase Troponin I High Sens Total Protein Albumin Lipase Urine Color Urine Appearance Urine pH Ur Specific [place] Urine Protein Urine Glucose (UA) Urine Ketones Urine Blood Urine Nitrite Ur Leukocyte Esterase Salicylates Urine Opiates Screen Acetaminophen Ur Barbiturates Screen Ur Phencyclidine Scrn Ur Amphetamines Screen U Benzodiazepines Scrn Urine Cocaine Screen U Marijuana (THC) Screen COVID-19 (KAY) Negative COVID-19 Clin Com See Note Imaging Radiologist's Impressions: Impressions Chest X-Ray 09/15/20 15:44 IMPRESSION: There is no acute abnormality of the chest. Head CT 09/15/20 15:45 IMPRESSION: No acute intracranial pathology. Abdomen/Pelvis CT 09/15/20 15:47 IMPRESSION: No acute abnormality CT scan abdomen and pelvis. Assessment and Plan (1) Memory deficit: Status: Acute (2) Headache: Qualifiers: Headache chronicity pattern: chronic headache Headache type: unspecified Intractability: not intractable Qualified Code(s): R51.9 - Headache, unspecified; G89.29 - Other chronic pain Status: Acute (3) Chronic low back pain: Status: Acute (4) Anxiety and depression: Status: Acute (5) History of DVT (deep vein thrombosis): Status: Acute this is a 70-year-old female with past medical history as mentioned above who presents to the hospital with memory loss as well as headache. # amnesia - possibly secondary to CVA - patient also has a significant headache - CT head was negative for any acute intracranial pathology - has patient underwent CT abdomen with contrast, CT angiogram of head and neck cannot be done on the same day per radiology plan: - Will order CT angiogram for morning, as well as brain MRI - admit to telemetry - will monitor symptoms # headache - possibly in response to acute CVA - frontal as well as occipital not associated with any rhinorrhea, or lacrimation plan: - Resume her home Dilaudid, Tylenol p.r.n. # history of DVT - continue Eliquis # anxiety and depression - continue duloxetine # chronic back pain and abdominal pain - abdominal CT negative for any changes - continue Dilaudid home dose # insomnia - continue zolpidem DVT prophylaxis: Eliquis
[2020-09-16] MEDS: HYDROmorphone HCl 2 MG TABLET 4 MG PO ×2 (06:00→12:26)
[2020-09-16 06:59] LABS: MANUAL DIFF FLAG NO
[2020-09-16] MEDS: iohexoL 350 MG/ML 100 ML INFUS..BTL 70 ML IV (07:00)
[2020-09-16 07:12] LABS: Basophils Absolute Auto 0.1 X10*3/uL (0.0-0.2); Basophils Percent Auto 0.9 % (0-2); Eosinophils Absolute Auto 0.2 X10*3/uL (0.0-0.4); Eosinophils Percent Auto 4.1 % (0-4); Hematocrit 40.4 % (37-47); Hemoglobin 13.3 g/dl (12.0-16.0); Imm Gran Abs Auto 0.02 X10*3/uL (0.00-0.03); Imm Gran Pct Auto 0.4 % (0.0-0.4); Lymphocytes Absolute Auto 2.1 X10*3/uL (1.2-4.9); Lymphocytes Percent Auto 36.5 % (20-40); Mean Corpuscular HGB Conc 32.9 g/dl (31.0-35.0); Mean Corpuscular Hemoglobin 29.5 pg (27.0-33.0); Mean Corpuscular Volume 89.6 fL (80-98); Mean Platelet Volume 9.7 fL (9.4-12.3); Monocytes Absolute Auto 0.5 X10*3/uL (0.1-1.2); Monocytes Percent Auto 9.6 % (2-11); Neutrophils Absolute Auto 2.7 X10*3/uL (2.0-8.3); Neutrophils Percent Auto 48.5 % (45-73); Platelet Count 264 X10*3/uL (160-400); Red Blood Count 4.51 X10*6/uL (4.20-5.50); Red Cell Distribution Width 15.4 % (11.0-16.0); White Blood Count 5.6 X10*3/uL (4.8-10.8)
[2020-09-16 07:55] VITALS: BP 160/80; PULSE 68; RESP 18; TEMP 36.7; O2SAT 98
[2020-09-16 08:01] LABS: Anion Gap 13 (12-20); Blood Urea Nitrogen 13 mg/dL (9-16); Calcium 9.5 mg/dL (8.4-10.2); Carbon Dioxide 28 mmol/L (22-29); Chloride 105 mmol/L (96-108); Creatinine Clr Calc Pharmacy 40.5; Estimated Glomerular Filt Rate 49; Glucose Random 80 mg/dL (60-115); Potassium 4.6 mmol/l (3.3-5.1); Sodium 141 mmol/L (135-145)
[2020-09-16] MEDS: DULoxetine HCl 60 MG CAPSULE.DR PO (08:21)
[2020-09-16] MEDS: Cholecalciferol (Vitamin D3) 25 MCG TABLET PO (08:21)
[2020-09-16] MEDS: Apixaban 2.5 MG TABLET 5 MG PO (08:22)
[2020-09-16] MEDS: Omeprazole 20 MG CAPSULE.DR PO (08:53)
--- NOTE | 2020-09-16 09:54 | MHC.CM.PN ---
CM met with patient at the bedside who reports she is independent and lives with her . CM helped patient fill out a HCP, copy was placed on chart. Discussed discharge plan, home no services. [facility] will provide transportation home. [phone]. CM will continue to follow patient for discharge needs.
[2020-09-16] MEDS: ondansetron HCL 4 MG/2 ML VIAL IVPUSH (10:42)
[2020-09-16] MEDS: Acetaminophen 325 MG TABLET 650 MG PO (11:07)
[2020-09-16 11:28] VITALS: BP 134/86; PULSE 81; RESP 18; TEMP 36.9; O2SAT 97
--- NOTE | 2020-09-16 12:48 | P.DS_ITS ---
DS: Providers Provider Date of admission: 09/15/20 22:20 Primary care physician: Chiara Diggs MD DS: Diagnosis Discharge Diagnosis (1) Memory deficit: Status: Acute (2) Headache: Status: Acute (3) Chronic low back pain: Status: Acute (4) Anxiety and depression: Status: Acute (5) History of DVT (deep vein thrombosis): Status: Acute DS: Medications Discharge Medications Home Medications: Home Medications Medication Instructions Recorded Confirmed albuterol sulfate 90 mcg/actuation 2 puff INHALATION Q4-6H PRN 08/12/20 09/15/20 aerosol inhaler apixaban 2.5 mg tablet 5 mg PO BID 08/12/20 09/15/20 budesonide-formoterol HFA 160 2 puff INHALATION BID 08/12/20 09/15/20 mcg-4.5 mcg/actuation aerosol inhaler cholecalciferol (vitamin D3) 25 25 mcg PO DAILY 08/12/20 09/15/20 mcg (1,000 unit) capsule cyanocobalamin (vitamin B-12) 1,000 mcg PO DAILY 08/12/20 09/15/20 1,000 mcg capsule duloxetine 60 mg capsule,delayed 60 mg PO DAILY 08/12/20 09/15/20 release hydromorphone 4 mg tablet 4 mg PO Q6H PRN 08/12/20 09/15/20 omeprazole 20 mg capsule,delayed 20 mg PO DAILY 08/12/20 09/15/20 release sucralfate 10 ml PO BID 09/15/20 09/15/20 Previous Rx's Medication Instructions Recorded zolpidem 10 mg tablet 10 mg PO BEDTIME PRN 90 Days #90 08/11/20 tab cyclobenzaprine 10 mg tablet 10 mg PO BID PRN #60 tab 09/02/20 DS: Summary Hospital Course Hospital Course: patient was admitted for confusion, most likely toxic encephalopathy due to polypharmacy, marijuana, malnutrition. She was previously B12 deficient Al though levels now appear to be normal. patient's mental status returned close to baseline. MRI and CTA of the head was negative. Exact etiology of symptoms is unclear at this time and patient can follow-up with Neurology as outpatient. Time Spent with Patient Time attestation: Total time spent providing and/or coordinating discharge services: Physical Exam Vital Signs: Vital Signs: Last Vital Signs Temp 98.5 F 09/16/20 11:28 Pulse 81 09/16/20 11:28 Resp 18 09/16/20 11:28 BP 134/86 09/16/20 11:28 Pulse Ox 97 09/16/20 11:28 Body Mass Index 18.9 General: AO X 3, no acute distress Resp: CTA bilateral CVS: S1,S2,RRR GI: soft, non tender, non distended Neuro: motor grossly intact Psych: appropriate affect DS: Data Data Completed and Pending Labs on day of discharge: 09/15/20 15:44 ECG 12 lead EKG Stat EKG Documentation DIRECTED XR chest 1V Stat 09/15/20 15:45 CT head/brain wo con Stat 09/15/20 15:46 ondansetron HCL [Zofran] 4 mg IVPUSH ONCE ONE 09/15/20 15:47 CT abdomen pelvis w con Stat 09/15/20 16:19 Acetaminophen LAB Stat Basic Metabolic Panel Stat Complete Blood Count Auto Diff Stat Hold Lt Blue - Possible Coag Stat Lipase Stat Liver Panel Stat Magnesium Stat Partial Thromboplastin Time Stat Prothrombin Time INR Stat Salicylate Stat Troponin-I High Sensitivity Stat 09/15/20 16:24 UA CC w/rflx Micro + Cult Stat 09/15/20 17:52 Drug Screen Urine Stat 09/15/20 18:07 iohexoL 350 MG/ML [Omnipaque 350 MG/ML] 100 ml IV ONCE ONE 09/15/20 20:29 Acetaminophen [Tylenol] 650 mg PO ONCE ONE HYDROmorphone HCl [Dilaudid] 4 mg PO ONCE ONE 09/15/20 21:55 COVID-19 ID NOW ([employer]) Stat 09/15/20 22:15 Transfer Order Routine 09/16/20 CT angio head neck Urgent 09/16/20 00:23 MR head/brain wo con Routine 09/16/20 01:08 Morphine Sulfate 4 mg IVPUSH ONCE ONE 09/16/20 05:40 Basic Metabolic Panel Routine Complete Blood Count Auto Diff Routine 09/16/20 05:56 Transfer Order Routine 09/16/20 07:00 iohexoL 350 MG/ML [Omnipaque 350 MG/ML] 70 ml IV ONCE ONE Laboratory Last Values WBC 5.6 X10*3/uL (4.8-10.8) 09/16/20 05:40 RBC 4.51 X10*6/uL (4.20-5.50) 09/16/20 05:40 Hgb 13.3 g/dl (12.0-16.0) 09/16/20 05:40 Hct 40.4 % (37-47) 09/16/20 05:40 MCV 89.6 fL (80-98) 09/16/20 05:40 MCH 29.5 pg (27.0-33.0) 09/16/20 05:40 MCHC 32.9 g/dl (31.0-35.0) 09/16/20 05:40 RDW 15.4 % (11.0-16.0) 09/16/20 05:40 Plt Count 264 X10*3/uL (160-400) 09/16/20 05:40 MPV 9.7 fL (9.4-12.3) 09/16/20 05:40 Immature Gran % (Auto) 0.4 % (0.0-0.4) 09/16/20 05:40 Neut % (Auto) 48.5 % (45-73) 09/16/20 05:40 Lymph % (Auto) 36.5 % (20-40) 09/16/20 05:40 [place] % (Auto) 9.6 % (2-11) 09/16/20 05:40 Eos % (Auto) 4.1 % (0-4) H 09/16/20 05:40 Baso % (Auto) 0.9 % (0-2) 09/16/20 05:40 Lymph # (Auto) 2.1 X10*3/uL (1.2-4.9) 09/16/20 05:40 [place] # (Auto) 0.5 X10*3/uL (0.1-1.2) 09/16/20 05:40 Eos # (Auto) 0.2 X10*3/uL (0.0-0.4) 09/16/20 05:40 Baso # (Auto) 0.1 X10*3/uL (0.0-0.2) 09/16/20 05:40 Abs Immat Gran (auto) 0.02 X10*3/uL (0.00-0.03) 09/16/20 05:40 Absolute Neuts (auto) 2.7 X10*3/uL (2.0-8.3) 09/16/20 05:40 Absolute Nucleated RBC 0.000 X10*3/uL (0.0-0.012) 09/16/20 05:40 Nucleated RBC % (auto) 0.0 /100WBC (0.0-0.2) 09/16/20 05:40 PT 11.0 SEC (10.8-13.0) 09/15/20 16:19 INR 0.9 (0.9-1.1) 09/15/20 16:19 APTT 36.1 SEC (24.1-38.0) 09/15/20 16:19 Hold Blue Top SEE NOTE 09/15/20 16:19 Sodium 141 mmol/L (135-145) 09/16/20 05:40 Potassium 4.6 mmol/l (3.3-5.1) 09/16/20 05:40 Chloride 105 mmol/L (96-108) 09/16/20 05:40 Carbon Dioxide 28 mmol/L (22-29) 09/16/20 05:40 Anion Gap 13 (-20) 09/16/20 05:40 BUN 13 mg/dL (9-16) 09/16/20 05:40 Creatinine 1.10 mg/dL (0.5-1.4) 09/16/20 05:40 Estim Creat Clear Calc 40.5 09/16/20 05:40 Estimated GFR 49 09/16/20 05:40 Random Glucose 80 mg/dL (60-115) 09/16/20 05:40 Calcium 9.5 mg/dL (8.4-10.2) 09/16/20 05:40 Magnesium 1.8 mg/dL (1.6-2.6) 09/15/20 16:19 Total Bilirubin 0.5 mg/dL (0.0-1.0) 09/15/20 16:19 Direct Bilirubin 0.2 mg/dL (0.0-0.5) 09/15/20 16:19 AST 14 U/L (5-31) 09/15/20 16:19 ALT 9 U/L (0-31) 09/15/20 16:19 Alkaline Phosphatase 96 U/L (39-117) 09/15/20 16:19 Troponin I High Sens 10.2 ng/L (<3.5-17.0) 09/15/20 16:19 Total Protein 6.1 g/dL (6.5-8.0) L 09/15/20 16:19 Albumin 3.7 g/dL (3.5-5.0) 09/15/20 16:19 Lipase 11 U/L (8-78) 09/15/20 16:19 Urine Color YELLOW 09/15/20 16:24 Urine Appearance CLEAR 09/15/20 16:24 Urine pH 5.5 (5.0-8.0) 09/15/20 16:24 Ur Specific [place] 1.020 (1.005-1.025) 09/15/20 16:24 Urine Protein NEG MG/DL (NEG-TRACE) 09/15/20 16:24 Urine Glucose (UA) NEG MG/DL (NEG) 09/15/20 16:24 Urine Ketones NEG MG/DL (NEG) 09/15/20 16:24 Urine Blood NEG (NEG) 09/15/20 16:24 Urine Nitrite NEG (NEG) 09/15/20 16:24 Ur Leukocyte Esterase NEG (NEG) 09/15/20 16:24 Salicylates < 5.0 mg/dL (15-30) L 09/15/20 16:19 Urine Opiates Screen POSITIVE (Not Detect) H 09/15/20 17:52 Acetaminophen 1 mcg/mL (<30) 09/15/20 16:19 Ur Barbiturates Screen Not Detected (Not Detect) 09/15/20 17:52 Ur Phencyclidine Scrn Not Detected (Not Detect) 09/15/20 17:52 Ur Amphetamines Screen Not Detected (Not Detect) 09/15/20 17:52 U Benzodiazepines Scrn Not Detected (Not Detect) 09/15/20 17:52 Urine Cocaine Screen Not Detected (Not Detect) 09/15/20 17:52 U Marijuana (THC) Screen POSITIVE (Not Detect) H 09/15/20 17:52 COVID-19 (KAY) Negative (Negative) 09/15/20 21:55 COVID-19 Clin Com See Note 09/15/20 21:55 Discharge Plan Discharge Patient Disposition: Home, Self-Care Referrals: Chiara Diggs MD [Primary Care Provider] - Discharge Medications: Continued zolpidem 10 mg tablet 10 mg PO BEDTIME PRN (Reason: insomnia) 90 Days Qty: 90 RF: 0 cyclobenzaprine 10 mg tablet 10 mg PO BID PRN (Reason: muscle spasm) Qty: 60 RF: 3 sucralfate 100 mg/mL suspension 10 ml PO BID RF: 0 Eliquis 2.5 mg tablet 5 mg PO BID RF: 0 duloxetine 60 mg capsule,delayed release(DR/EC) 60 mg PO DAILY RF: 0 hydromorphone 4 mg tablet 4 mg PO Q6H PRN (Reason: Pain) RF: 0 omeprazole 20 mg capsule,delayed release(DR/EC) 20 mg PO DAILY RF: 0 albuterol sulfate [ProAir HFA] 90 mcg/actuation HFA aerosol inhaler 2 puff inhalation Q4-6H PRN (Reason: Shortness Of Breath) RF: 0 budesonide-formoterol [Symbicort] 160-4.5 mcg/actuation HFA aerosol inhaler 2 puff inhalation BID RF: 0 cholecalciferol (vitamin D3) 25 mcg (1,000 unit) capsule 25 mcg PO DAILY RF: 0 cyanocobalamin (vitamin B-12) 1,000 mcg capsule 1,000 mcg PO DAILY RF: 0 Discharge Orders: Discharge Order (Routine); Ordered 09/16/20 Ordered By: Mariano Vazquez Activity on Discharge: As tolerated Visit Report Forms: Patient Portal Discharge page Care Plan Goals: [facility] Concerns: memory loss, malnutrition Plan of Treatment: continue with dietary supplements, can follow up with a neurology if symptoms persist
--- NOTE | 2020-09-16 12:50 | MHC.CM.PN ---
Patient will be discharged home today. [facility] will provide transport [phone]
== END 2020-09-16 14:18 | disposition home or self-care (01) | DRG 92 ==
LOC: HO.ED 21:15 → HO.IMC 23:03
PROVIDERS: Nurse Practitioner Family; Physician Assistant; Admitting Provider Internal Medicine; Emergency Provider Emergency Medicine Emergency Medical Services; PCP Internal Medicine; Visit Provider Internal Medicine
DX: G92 Toxic encephalopathy (principal); E46 Unspecified protein-calorie malnutrition; Z68.1 Body mass index [BMI] 19.9 or less, adult; T40.605A Adverse effect of unspecified narcotics, initial encounter; Y92.9 Unspecified place or not applicable; F32.9 Major depressive disorder, single episode, unspecified; F41.9 Anxiety disorder, unspecified; G47.00 Insomnia, unspecified; K21.9 Gastro-esophageal reflux disease without esophagitis; E78.5 Hyperlipidemia, unspecified; Z86.718 Personal history of other venous thrombosis and embolism; Z20.828 Contact with and (suspected) exposure to other viral communicable diseases; Z79.01 Long term (current) use of anticoagulants; Z79.891 Long term (current) use of opiate analgesic; Z79.899 Other long term (current) drug therapy
CPT/HCPCS: 36415; 70450; 70496; 70498; 70551; 71045; 74177; 80048; 80076; 80307; 81003; 83690; 83735; 84484; 85025; 85610; 85730; 87635; 93005; 96374; 99284; 99285; G0480; J2270; J2405; Q9967

== ENCOUNTER → 2021-01-07 10:11 | Outpatient (BNVA) | payer MEDICARE, SELFPAY | PROVIDERS: PCP Internal Medicine; Visit Provider Internal Medicine Gastroenterology | DX: Z13.89 Encounter for screening for other disorder (principal) | CPT/HCPCS: Q3014 ==

== ENCOUNTER 2021-01-17 11:07 | Outpatient (REF) | payer MEDICARE, SELFPAY ==
--- NOTE | ~2021-01-17 | US_ITS ---
EXAMINATION: US ABDOMEN COMPLETE CLINICAL INFORMATION: Epigastric pain. COMPARISON: CT abdomen and pelvis 09/15/2020. MRI abdomen 06/17/2018. Renal ultrasound 06/11/2018. Ultrasound kidneys and bladder 07/10/2008. TECHNIQUE: Real-time imaging of the abdominal viscera. FINDINGS: PANCREAS: Normal. ABDOMINAL AORTA: The proximal, mid, and distal segments are normal in caliber. INFERIOR VENA CAVA: Visualized portions are normal. LIVER: Normal. The liver is normal in size. The liver contour is normal. Parenchymal echogenicity is normal. No focal hepatic lesion. There is no intrahepatic biliary duct dilatation seen. GALLBLADDER: The gallbladder is physiologically distended. There are gallstones in the gallbladder.. No evidence of gallbladder wall thickening or pericholecystic fluid. COMMON BILE DUCT: Normal in caliber measuring 0.7 cm in diameter. RIGHT KIDNEY: Surgically absent. LEFT KIDNEY: Normal. No hydronephrosis. No renal calculi or focal parenchymal lesions. The kidney measures 11.4 cm in maximum dimension. SPLEEN: Normal. The spleen measures 9.5 cm in maximum dimension. FREE FLUID: None. US/US abdomen complete IMPRESSION: Gallstones. Surgically absent right kidney. Otherwise unremarkable exam.
== END 2021-01-17 11:08 | disposition home or self-care (01) ==
LOC: HO.HMGCX 11:07
PROVIDERS: PCP Internal Medicine; Visit Provider Internal Medicine Gastroenterology
DX: R10.13 Epigastric pain (principal)
CPT/HCPCS: 76700

== ENCOUNTER → 2021-02-10 08:48 | Outpatient (BNVA) | payer MEDICARE, SELFPAY | PROVIDERS: PCP Internal Medicine; Visit Provider Surgery | DX: K80.20 Calculus of gallbladder without cholecystitis without obstruction (principal) | CPT/HCPCS: 99202 ==

== ENCOUNTER → 2021-04-11 10:35 | Outpatient (BNVA) | payer MEDICARE, SELFPAY | PROVIDERS: PCP Internal Medicine; Visit Provider Internal Medicine Gastroenterology | CPT/HCPCS: Q3014 ==

== ENCOUNTER → 2021-07-12 09:22 | Outpatient (BNVA) | payer MEDICARE, SELFPAY | PROVIDERS: PCP Internal Medicine; Visit Provider Internal Medicine Gastroenterology | CPT/HCPCS: Q3014 ==

== ENCOUNTER 2021-10-17 12:15 | Outpatient (REF) | payer MEDICARE, BC, SELFPAY ==
--- NOTE | ~2021-10-17 | MM_ITS ---
EXAMINATION: MM SCREENING DIGITAL BREAST TOMOSYNTHESIS, BILATERAL CLINICAL INFORMATION: Screening. Asymptomatic. The lifetime risk of breast cancer based on the Tyrer-Cuzick Model is 4%. COMPARISON: Mammography: 04/25/2016 TECHNIQUE: Digital breast tomosynthesis is performed in both the craniocaudal and mediolateral oblique views along with computer-aided detection (CAD). Synthesized 2D images are generated from the tomosynthesis. FINDINGS: There are scattered areas of fibroglandular density (ACR BI-RADS breast composition Category b). The breasts are symmetrically smaller and symmetrically slightly increased in density consistent with interval weight loss since 2016. There is no interval mass or architectural abnormality or abnormal calcifications. There are scattered bilateral vascular calcifications. The axilla and skin contours are unremarkable. MM/MM tomosynthesis screening BI IMPRESSION: No mammographic evidence of malignancy. ASSESSMENT: BI-RADS 2: Benign RECOMMENDATION: Routine annual mammography screening. This patient's information was entered into a reminder system with a target due date for their next mammogram.
== END 2021-10-17 12:16 | disposition home or self-care (01) ==
LOC: HO.MAMMO 12:15
PROVIDERS: Visit Provider Internal Medicine
DX: Z12.31 Encounter for screening mammogram for malignant neoplasm of breast (principal)
CPT/HCPCS: 77063; 77067

== ENCOUNTER 2021-11-23 12:39 | Outpatient (REF) | payer MEDICARE, BC, SELFPAY ==
--- NOTE | ~2021-11-23 | MM_ITS ---
EXAMINATION: BONE DENSITOMETRY CLINICAL INDICATION: Other specified disorders of bone density and structure. COMPARISON: Previous BD dated 04/25/2016 and baseline BD dated 10/27/2011. TECHNIQUE: Using a [email or web address] DXA System (software version: 13.1) manufactured by [employer], dual-energy x-ray absorptiometry was performed of the lumbar spine and left hip. The images are of good technical quality. Summary results are attached. FINDINGS: AP SPINE L1-L4: Current: BMD 1.260 g/cm2, Z-score 2.4, T-score 0.7, normal, 7.1% increase from previous, 7.3% increase from baseline (<5% change is not significant). Prior: BMD 1.176 g/cm2. Baseline: BMD 1.174 g/cm2. LEFT FEMUR, NECK: Current: BMD 0.745 g/cm2, Z-score -0.3, T-score -2.1, osteopenia. Prior: BMD 0.965 g/cm2. Baseline: BMD 0.932 g/cm2. LEFT FEMUR, TOTAL: Current: BMD 0.763 g/cm2, Z-score -0.3, T-score -1.9, osteopenia, 24.2% decrease from previous, 23.9% decrease from baseline (<5% change is not significant). Prior: BMD 1.007 g/cm2. Baseline: BMD 1.002 g/cm2. IDENTIFIED RISK FACTORS: Height loss, menopause. HISTORY OF FRACTURE: None listed. MEDICATIONS: Vitamin D. MM/XR DEXA axial skeleton IMPRESSION: 1. DIAGNOSIS: Osteopenia based on the lowest T-score value of -2.1 in the femoral neck applying World Health Organization criteria. 2. 10-YEAR FRACTURE RISK PREDICTION, FRAX: Major osteoporotic fracture (clinical spine, forearm, hip or shoulder) 12.8%. Hip fracture 3.1%. 3. Treatment Recommendations: NOF guidelines recommend consideration for treatment in postmenopausal women and men age 50 and older presenting with the following: -A hip or vertebral (clinical or morphometric) fracture. -T-score less than or equal to -2.5 at the femoral neck or spine after appropriate evaluation to exclude secondary causes. -Low bone mass at the hip or spine and a 10-year fracture probability by FRAX of greater than or equal to 3% for hip fracture or greater than or equal to 20% for major osteoporotic fracture based on the [place] adapted WHO algorithm. 4. Other Recommendations: All treatment decisions require clinical judgment and consideration of individual patient factors, including patient preferences, comorbidities, previous drug use, risk factors not captured in the FRAX model (e.g. frailty, falls, vitamin D deficiency, increased bone turnover, interval significant decline in bone density) and possible under or overestimation of fracture risk by FRAX. Additional medical evaluation for secondary cause of low bone mineral density may be appropriate. FUTURE SCAN RECOMMENDATION: People with diagnosed cases of osteoporosis or at high risk for fracture should have regular bone mineral density tests. For patients eligible for Medicare, routine testing is allowed once every 2 years. The testing frequency can be increased to one year for patients who have rapidly progressing disease, those who are receiving or discontinuing medical therapy to restore bone mass, or have additional risk factors.
== END 2021-11-23 12:40 | disposition home or self-care (01) ==
LOC: HO.MAMMO 12:39
PROVIDERS: Visit Provider Internal Medicine
DX: Z12.31 Encounter for screening mammogram for malignant neoplasm of breast (principal); M85.80 Other specified disorders of bone density and structure, unspecified site; M95.8 Other specified acquired deformities of musculoskeletal system; Z79.899 Other long term (current) drug therapy; Z78.0 Asymptomatic menopausal state
CPT/HCPCS: 77080

== ENCOUNTER → 2021-12-07 12:58 | Outpatient (BNVA) | payer MEDICARE, BC, SELFPAY | PROVIDERS: PCP Internal Medicine; Visit Provider Surgery | DX: R22.0 Localized swelling, mass and lump, head (principal) | CPT/HCPCS: 99212 ==

== ENCOUNTER → 2021-12-19 11:22 | Outpatient (BNVA) | payer MEDICARE, BC, SELFPAY | PROVIDERS: PCP Internal Medicine; Referring Provider Internal Medicine; Visit Provider Internal Medicine Gastroenterology | DX: R19.7 Diarrhea, unspecified (principal); R10.13 Epigastric pain | CPT/HCPCS: 99212 ==

== ENCOUNTER 2022-01-11 10:51 | Outpatient (REF) | payer MEDICARE, BC, SELFPAY ==
[2022-01-11 11:07] VITALS: BMI 22.9
[2022-01-11 11:08] VITALS: BP 138/76; PULSE 85; RESP 16; TEMP 36.2; O2SAT 98
[2022-01-11 11:32] VITALS: BP 138/84; PULSE 84; RESP 16; O2SAT 99
--- NOTE | 2022-01-11 11:32 | P.OP_ITS ---
Operative Note Operative Note Date of Service: 01/11/22 Narrative: Preop diagnosis: Scalp mass Postop diagnosis: Scalp mass Procedure: Excision of scalp mass under local anesthesia Surgeon: Nik Alfaro MD The patient is a 72 year female with note of a scalp mass, subcutaneous in location, about 1.5 cm in diameter. This was located on the mid parietal area. She understood the technique of the procedure of excision under local anesthesia. She was aware of the risks, benefits, and alternatives She was brought to the minor procedure room. She was placed in reclining position with a rolled sheet under the neck to allow good exposure of the lesion. The area of the mass was prepped and draped. Lidocaine 1% was used for local anesthesia. I made an incision on the skin overlying his mesh using blade 15. And this was carried down through the full-thickness of the skin subcutaneous fat. I was then able to visualize what appeared to be a cyst capsule. I sharply dissected this off of the rest of the subcutaneous layer until this was delivered. The cystic mass was about 1.5 cm in diameter. I irrigated the area of excision and closed the incision full-thickness nylon 3- 0 interrupted sutures. Bacitracin was applied on the incision and the procedure was completed. The patient tolerated procedure well. There were no complications noted. She was given wound care instructions and will be seen in the office for follow-up for removal sutures.
--- NOTE | 2022-01-11 13:11 | MHC.SHP ---
Pre-Procedural Eval Section A Date of Service: 01/11/22 Section B Chief Complaint: dysphagia, colon screening Relevant Family History (Specify if Yes): No Relevant Social History: None Present Medications: see Short Stay Collaborative assessment Medical History: Significant History (Asthma Chronic low back pain GERD (gastroesophageal reflux disease) History of DVT (deep vein thrombosis) Hypercholesterolemia Hypertension Insomnia Secondary malignant neoplasm of retroperitoneum and peritoneum Tubular adenoma of colon Vitamin B12 deficiency Vitamin D deficiency) History of Previous Operations: Relevant previous surgery/procedure and date(s) (History of back surgery History of section History of colonoscopy History of nephroureterectomy History of tonsillectomy History of tubal ligation Hx of endoscopy Retroperitoneal liposarcoma) Allergies: Allergies Allergy/AdvReac Type Severity Reaction Status Date / Time lisinopril [LISINOPRIL] Allergy Intermediate COUGH, Verified 12/19/21 11:31 constant cough simvastatin [SIMVASTATIN] Allergy Mild Confusion Verified 12/19/21 11:31 Review of Systems Sugical H&P ROS: Negative: Constitution, Cardiovascular, Respiratory, Neurological, Psychiatric, Hem-Onc, Allergic/Immunologic, Gastrointestinal, Genitourinary, Musculoskeletal, Integumentary, Endocrine and Eyes/Ears/Nose/Throat Exam Surgical H&P Exam: Normal: HEENT, Normal: Heart, Normal: Lungs, Normal: Extremities, Normal: Abdomen, Normal: Skin and Normal: Neurological Plan Diagnosis/Plan: Unchanged I have reviewed the history and physical and performed a pertinent physical examination on my patient. No changes have occurred unless specified.
--- NOTE | 2022-01-11 13:31 | P.BOP_ITS ---
Brief Operative Note Date of Service: 01/11/22 Pre-op diagnosis: diarrhea, dysphagia Post-op diagnosis: same Procedure: see op note Surgeon: Fish Baptiste MD Anesthesia: MAC Was an Irrigation Equipment Mechanic used for this Procedure?: No Estimated blood loss (mL): 0 Condition: stable Disposition: PACU
--- NOTE | 2022-01-11 13:52 | W.PM.OPN ---
Operative Note Operative Note Date of Service: 01/11/22 Narrative: Operative Information Procedure Description: EGD, Colonoscopy FLEXIBLE TRANSORAL UPPER GASTROINTESTINAL ENDOSCOPY AND COLONOSCOPY PROCEDURE NOTE UPPER ENDOSCOPY Consent: Indications for the procedure and potential complications of bleeding, perforation, reaction to medications and missed diagnosis were discussed with the patient and informed consent was obtained. Instrument: Olympus GIF H 190 J mid size upper endoscope Monitoring: Vital signs and clinical assessment, continuous EKG monitoring, Pulse oximetry, Carbon Dioxide monitoring and blood pressure monitoring were done throughout the procedure. Procedure: The patient was placed in the left lateral decubitis position and pre-procedure medications were administered and a bite block was placed. The endoscope was inserted into the mouth and advanced under direct vision to the third part of duodenum. A careful inspection was made as the upper endoscope was withdrawn including a retroflexed examination of the proximal stomach; Findings and interventions are described below. Findings: Larynx:normal Esophagus: GE junction at 38 cm, diaphragm hiatus at 38 cm, mild esophagitis, balloon dilation done to 20 mm at LES with small tear noted and at UES with slight bruising noted (18 mm) Stomach: Moderate streaky gastritis and edema of mucosa. moderate amount of bile noted in stomach Biopsies were obtained. Grade 2 flap valve on retroflexed examination of the cardia. Duodenum: Normal bulb and descending duodenum, bx taken Intervention: Biopsies as noted above, balloon dilation COLONOSCOPY Instrument: Olympus variable stiffness pediatric scope 190L Colonoscopy Monitoring: Vital signs and clinical assessment, continuous EKG monitoring, Pulse oximetry, Carbon Dioxide monitoring and blood pressure monitoring were done throughout the procedure. Colon withdrawal time was 15 minutes. Procedure: The patient was placed in the left lateral decubitis position and pre-procedure medications were administered. After a digital rectal examination of the ano-rectum, the video colonoscope was inserted into the rectum and advanced through the colon to the ileocolonic anastomosis. The colonoscope was slowly withdrawn in a retrograde panoramic fashion and the colon mucosa was carefully examined including a retroflexed view of the rectum. Findings and interventions are described below. Procedure Difficulty: moderate with looping Findings: ileocolonic anasotmosis noted, bx taken from tej terminal ileum. one staple dangling and removed, was bleeding thereafter so one clip applied with hemostasis random colon bx taken Transverse Colon -normal Descending Colon:normal Sigmoid Colon: mild diverticulosis noted, 6-8 mm sessile polyp removed with forceps Rectum: Retroflexion with small internal hemorrhoids, grade I with skin tags Anorectum - normal Colon preparation: [place] Bowel Preparation Scale Right colon; 2 Transverse colon: 1 Left colon; 2 (0 = Unprepared colon segment with mucosa not seen due to solid stool that cannot be cleared. 1 = Portion of mucosa of the colon segment seen, but other areas of the colon segment not well seen due to staining, residual stool and/or opaque liquid. 2 = Minor amount of residual staining, small fragments of stool and/or opaque liquid, but mucosa of colon segment seen well. 3 = Entire mucosa of colon segment seen well with no residual staining, small fragments of stool or opaque liquid) Impression and Post Procedure Diagnosis: Endoscopy Findings: bile acid reflux related gastritis esophagitis esophageal strictures Colonoscopy Findings: polyp internal hemorrhoids diverticular disease Plan: Await Pathology results Repeat Colonoscopy in 2-3 years due to prep or earlier if clinically indicated High fiber diet leaflet avoid straining at stool, epsom salts and sitz bath, anusol supps or cream trial of ursodiol restart anti coagulation in 2-3 days ie: 01/14/2022 Above findings were reviewed with the patient and relevant handouts were provided if indicated.
== END 2022-01-11 15:00 | disposition home or self-care (01) ==
LOC: HO.MS 10:51
PROVIDERS: PCP Internal Medicine; Visit Provider Surgery
PROC: (CPT 11422; principal; 2022-01-11 11:15)
DX: L72.11 Pilar cyst (principal); J45.909 Unspecified asthma, uncomplicated; K21.9 Gastro-esophageal reflux disease without esophagitis; Z86.718 Personal history of other venous thrombosis and embolism; I10 Essential (primary) hypertension; E55.9 Vitamin D deficiency, unspecified; E53.0 Riboflavin deficiency; Z79.899 Other long term (current) drug therapy; Z88.0 Allergy status to penicillin
CPT/HCPCS: 11422; 88304

== ENCOUNTER 2022-01-11 12:51 | Day surgery (SDC) | payer MEDICARE, BC, SELFPAY ==
--- NOTE | 2022-01-11 12:47 | HO.ANESPROP2 ---
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) Chronic gastritis (Acute) Memory deficit (Acute) Headache (Acute) Chronic low back pain (Acute) Vitamin D deficiency (Acute) Asthma (Acute) GERD (gastroesophageal reflux disease) (Acute) Vitamin B12 deficiency (Acute) History of DVT (deep vein thrombosis) (Acute) Insomnia (Acute) Past Medical History Medical History Asthma Chronic low back pain GERD (gastroesophageal reflux disease) History of DVT (deep vein thrombosis) Hypercholesterolemia Hypertension Insomnia Secondary malignant neoplasm of retroperitoneum and peritoneum Tubular adenoma of colon Vitamin B12 deficiency Vitamin D deficiency Family History Family History Father Myocardial infarction CVD (cardiovascular disease) Mother CVD (cardiovascular disease) Stroke Brother Myocardial infarction CVD (cardiovascular disease) Family history of problems with anesthesia: No Surgical History Surgical History History of back surgery History of section History of colonoscopy History of nephroureterectomy History of tonsillectomy History of tubal ligation Hx of endoscopy Retroperitoneal liposarcoma History of Problems with Anesthesia: No Social History Social History Household Members: Spouse and Family Housing: House Do you presently have visiting nurse or other home services: No Alcohol intake: never Patient Tobacco Use Status: Never used Tobacco e-Cigarette/Vaping Use: Never Used Second Hand Smoke Exposure: No Substance Use Type: Marijuana and Other service: No Current occupational status: retired Meds Allergies Allergy/AdvReac Type Severity Reaction Status Date / Time lisinopril [LISINOPRIL] Allergy Intermediate COUGH, Verified 12/19/21 11:31 constant cough simvastatin [SIMVASTATIN] Allergy Mild Confusion Verified 12/19/21 11:31 Home Medications Medication Instructions Recorded Confirmed Last Taken Type cyanocobalamin (vitamin B-12) 1,000 mcg PO DAILY 08/12/20 12/07/21 Unknown History 1,000 mcg capsule apixaban 2.5 mg tablet (Eliquis) 2.5 mg PO BID 07/12/21 12/07/21 Unknown History THC oral drop PO .QHS 08/11/21 12/07/21 Unknown History Exam Exam Date and Time: January 11, 2022 1247 Airway Mallampati Class: II (Missing multiple teeth, nothing loose) TM Dist: >3cm Neck ROM: Full Heart: rrr Lungs: cta Assessment and Plan Assessment Anesthesia Assessment: Anesthesia Plan Discussed and Chart Reviewed Final Anesthetic Review Family History of Problems with Anesthesia: No History of Problems with Anesthesia: No NPO: Yes ASA Class: III Final Preanesthetic Review: No Changes in Pt Med Stat and Meds/Allgs Chart Reviewed Patient Risk: Intermediate Procedure Risk: Intermediate Anesthetic Plan Anesthetic Plan: MAC: Disposition: Standard PACU
[2022-01-11 12:55] VITALS: BP 156/82; PULSE 77; RESP 16; TEMP 36.9; O2SAT 99; BMI 22.9
[2022-01-11] MEDS: Lactated Ringers 1,000 ML 50 ML IVCONT (13:01)
--- NOTE | 2022-01-11 13:52 | W.PM.OPN ---
Operative Note Operative Note Date of Service: 01/11/22 Narrative: Operative Information Procedure Description: EGD, Colonoscopy FLEXIBLE TRANSORAL UPPER GASTROINTESTINAL ENDOSCOPY AND COLONOSCOPY PROCEDURE NOTE UPPER ENDOSCOPY Consent: Indications for the procedure and potential complications of bleeding, perforation, reaction to medications and missed diagnosis were discussed with the patient and informed consent was obtained. Instrument: Olympus GIF H 190 J mid size upper endoscope Monitoring: Vital signs and clinical assessment, continuous EKG monitoring, Pulse oximetry, Carbon Dioxide monitoring and blood pressure monitoring were done throughout the procedure. Procedure: The patient was placed in the left lateral decubitis position and pre-procedure medications were administered and a bite block was placed. The endoscope was inserted into the mouth and advanced under direct vision to the third part of duodenum. A careful inspection was made as the upper endoscope was withdrawn including a retroflexed examination of the proximal stomach; Findings and interventions are described below. Findings: Larynx:normal Esophagus: GE junction at 38 cm, diaphragm hiatus at 38 cm, mild esophagitis, balloon dilation done to 20 mm at LES with small tear noted and at UES with slight bruising noted (18 mm) Stomach: Moderate streaky gastritis and edema of mucosa. moderate amount of bile noted in stomach Biopsies were obtained. Grade 2 flap valve on retroflexed examination of the cardia. Duodenum: Normal bulb and descending duodenum, bx taken Intervention: Biopsies as noted above, balloon dilation COLONOSCOPY Instrument: Olympus variable stiffness pediatric scope 190L Colonoscopy Monitoring: Vital signs and clinical assessment, continuous EKG monitoring, Pulse oximetry, Carbon Dioxide monitoring and blood pressure monitoring were done throughout the procedure. Colon withdrawal time was 15 minutes. Procedure: The patient was placed in the left lateral decubitis position and pre-procedure medications were administered. After a digital rectal examination of the ano-rectum, the video colonoscope was inserted into the rectum and advanced through the colon to the ileocolonic anastomosis. The colonoscope was slowly withdrawn in a retrograde panoramic fashion and the colon mucosa was carefully examined including a retroflexed view of the rectum. Findings and interventions are described below. Procedure Difficulty: moderate with looping Findings: ileocolonic anasotmosis noted, bx taken from tej terminal ileum. one staple dangling and removed, was bleeding thereafter so one clip applied with hemostasis random colon bx taken Transverse Colon -normal Descending Colon:normal Sigmoid Colon: mild diverticulosis noted, 6-8 mm sessile polyp removed with forceps Rectum: Retroflexion with small internal hemorrhoids, grade I with skin tags Anorectum - normal Colon preparation: [place] Bowel Preparation Scale Right colon; 2 Transverse colon: 1 Left colon; 2 (0 = Unprepared colon segment with mucosa not seen due to solid stool that cannot be cleared. 1 = Portion of mucosa of the colon segment seen, but other areas of the colon segment not well seen due to staining, residual stool and/or opaque liquid. 2 = Minor amount of residual staining, small fragments of stool and/or opaque liquid, but mucosa of colon segment seen well. 3 = Entire mucosa of colon segment seen well with no residual staining, small fragments of stool or opaque liquid) Impression and Post Procedure Diagnosis: Endoscopy Findings: bile acid reflux related gastritis esophagitis esophageal strictures Colonoscopy Findings: polyp internal hemorrhoids diverticular disease Plan: Await Pathology results Repeat Colonoscopy in 2-3 years due to prep or earlier if clinically indicated High fiber diet leaflet avoid straining at stool, epsom salts and sitz bath, anusol supps or cream trial of ursodiol restart anti coagulation in 2-3 days ie: 01/14/2022 Above findings were reviewed with the patient and relevant handouts were provided if indicated.
[2022-01-11 13:58] VITALS: BP 111/53; PULSE 83; RESP 16; TEMP 36.6; O2SAT 100
[2022-01-11 14:13] VITALS: BP 128/64; PULSE 74; RESP 16; O2SAT 99
[2022-01-11 14:28] VITALS: BP 156/76; PULSE 76; RESP 16; TEMP 36.6; O2SAT 99
[2022-01-11] MEDS: Mag&Al/Sim/Diphenhyd/Lidocaine 10 ML ORAL.SUSP PO (14:33)
== END 2022-01-11 15:00 | disposition home or self-care (01) ==
PROVIDERS: PCP Internal Medicine; Visit Provider Internal Medicine Gastroenterology
PROC: (CPT 45380; principal; 2022-01-11 14:20)
DX: R19.7 Diarrhea, unspecified (principal); D12.5 Benign neoplasm of sigmoid colon; K57.30 Diverticulosis of large intestine without perforation or abscess without bleeding; K64.0 First degree hemorrhoids; K64.4 Residual hemorrhoidal skin tags; K21.9 Gastro-esophageal reflux disease without esophagitis; K22.2 Esophageal obstruction; K20.80 Other esophagitis without bleeding; K29.50 Unspecified chronic gastritis without bleeding; K44.9 Diaphragmatic hernia without obstruction or gangrene; Z98.0 Intestinal bypass and anastomosis status; C78.6 Secondary malignant neoplasm of retroperitoneum and peritoneum; J45.909 Unspecified asthma, uncomplicated; I10 Essential (primary) hypertension; E55.9 Vitamin D deficiency, unspecified; E53.8 Deficiency of other specified B group vitamins; Z85.528 Personal history of other malignant neoplasm of kidney; Z90.5 Acquired absence of kidney; Z86.718 Personal history of other venous thrombosis and embolism; Z88.8 Allergy status to other drugs, medicaments and biological substances; Z79.899 Other long term (current) drug therapy; F12.90 Cannabis use, unspecified, uncomplicated
CPT/HCPCS: 45380; 43249; 43239; 88305; 88342; C1726

== ENCOUNTER 2022-01-16 10:31 | Outpatient (REF) | payer MEDICARE, BC, SELFPAY ==
[2022-01-16 10:52] LABS: MANUAL DIFF FLAG NO
[2022-01-16 11:17] LABS: Basophils Absolute Auto 0.1 X10*3/uL (0.0-0.2); Basophils Percent Auto 1.3 % (0-2); Eosinophils Absolute Auto 0.4 X10*3/uL (0.0-0.4); Eosinophils Percent Auto 9.1 % (0-4); Hematocrit 38.7 % (37.0-47.0); Lymphocytes Absolute Auto 1.1 X10*3/uL (1.2-4.9); Lymphocytes Percent Auto 24.7 % (20-40); Mean Corpuscular Hemoglobin 27.7 pg (27.0-33.0); Mean Corpuscular Volume 89.4 fL (80.0-98.0); Mean Platelet Volume 9.4 fL (9.4-12.3); Monocytes Absolute Auto 0.3 X10*3/uL (0.1-1.2); Monocytes Percent Auto 6.4 % (2-11); Neutrophils Absolute Auto 2.6 x10*3/uL (2.0-8.3); Neutrophils Percent Auto 58.5 % (45-73); Platelet Count 276 X10*3/uL (160-400); Red Blood Count 4.33 X10*6/uL (4.20-5.50); Red Cell Distribution Width 16.8 % (11.0-16.0); White Blood Count 4.5 X10*3/uL (4.8-10.8)
[2022-01-16 12:12] LABS: Alanine Aminotransferase 10 U/L (0-31); Albumin Level 3.8 g/dL (3.5-5.0); Alkaline Phosphatase 75 U/L (39-117); Anion Gap 12 (12-20); Aspartate Amino Transferase 14 U/L (5-31); Bilirubin Total 0.3 mg/dL (0.0-1.0); Blood Urea Nitrogen 16 mg/dL (9-16); Calcium 9.7 mg/dL (8.4-10.2); Carbon Dioxide 24 mmol/L (22-29); Chloride 108 mmol/L (96-108); Cholesterol 179 mg/dL; Estimated Glomerular Filt Rate 42; Glucose Random 91 mg/dL (60-115); HDL Cholesterol 88 mg/dL; LDL Cholesterol Calculated 65 mg/dl; Magnesium 1.8 mg/dL (1.6-2.6); Potassium 4.3 mmol/L (3.3-5.1); Sodium 140 mmol/L (135-145); Total Protein 6.4 g/dL (6.5-8.0); Triglycerides 134 mg/dL
[2022-01-16 12:37] LABS: Free T4 (Free Thyroxine) 0.95 ng/dL (0.71-1.85)
[2022-01-16 13:06] LABS: Folate 9.2 ng/mL (> or = 4.0); Vitamin B12 1207 pg/mL (200-900)
== END 2022-01-16 10:32 | disposition home or self-care (01) ==
LOC: HO.LAB 10:31
PROVIDERS: PCP Internal Medicine; Visit Provider Internal Medicine
DX: K21.9 Gastro-esophageal reflux disease without esophagitis (principal); E78.00 Pure hypercholesterolemia, unspecified
CPT/HCPCS: 36415; 80053; 80061; 82306; 82607; 82746; 83735; 84439; 84443; 85025

== ENCOUNTER → 2022-01-30 13:00 | Outpatient (BNVA) | payer MEDICARE, BC, SELFPAY | PROVIDERS: PCP Internal Medicine; Visit Provider Surgery | DX: Z48.817 Encounter for surgical aftercare following surgery on the skin and subcutaneous tissue (principal); Z87.2 Personal history of diseases of the skin and subcutaneous tissue | CPT/HCPCS: 99212 ==

== ENCOUNTER → 2022-04-10 14:28 | Outpatient (BNVA) | payer MEDICARE, BC, SELFPAY | PROVIDERS: PCP Internal Medicine; Referring Provider Internal Medicine; Visit Provider Internal Medicine Gastroenterology | DX: R10.13 Epigastric pain (principal) | CPT/HCPCS: 99212 ==

== ENCOUNTER → 2022-08-21 10:56 | Outpatient (BNVA) | payer MEDICARE, BC, SELFPAY | PROVIDERS: PCP Internal Medicine; Visit Provider Internal Medicine Gastroenterology | DX: R10.33 Periumbilical pain (principal); R13.10 Dysphagia, unspecified | CPT/HCPCS: Q3014 ==

== ENCOUNTER 2022-09-06 13:31 | Outpatient (REF) | payer MEDICARE, BC, SELFPAY | END 2022-09-06 13:32 | disposition home or self-care (01) | LOC: HO.US 13:31 | PROVIDERS: Visit Provider Internal Medicine Gastroenterology | DX: Z13.89 Encounter for screening for other disorder (principal) ==

== ENCOUNTER 2022-09-13 13:45 | Outpatient (REF) | payer MEDICARE, BC, SELFPAY ==
--- NOTE | ~2022-09-13 | CT_ITS ---
EXAMINATION: CT ENTEROGRAPHY ABDOMEN AND PELVIS WITH CONTRAST CLINICAL INFORMATION: Periumbilical pain COMPARISON: Previous CT of the abdomen and pelvis September 2020 and abdominal ultrasound January 2021 TECHNIQUE: Study performed with oral VoLumen (1350 mL) and 480 mL of water to distend the abdomen. The patient was injected with 85 mL Omnipaque 350 intravenous contrast which was administered without adverse effect. Coronal and sagittal reformatted images were obtained at the technologist's workstation. This CT examination was performed using dose optimization techniques as appropriate, variously including the following: *Automated exposure control *Adjustment of mA and/or kV according to patient size (this includes techniques or standardized protocols for targeted exams where dose is matched to indication/reason for exam; i.e. extremities or head) *Use of iterative reconstruction technique DLP: 359 mGy-cm FINDINGS: GASTROINTESTINAL FINDINGS: Stomach: Well-distended and normal in appearance. Small and large intestine: Postsurgical changes following resection of the right colon and right upper quadrant enterocolic anastomosis. Small bowel is otherwise normal. The colon is dilated and fluid-filled. No wall thickening or mass is seen. There is a 6 mm radiopaque density in the distal transverse colon for example axial image 126 series 3 and coronal reconstructed image 34 probably representing something the patient has ingested. The rectum is normal. No perirectal changes. Additional findings: No abnormal enhancement of the vasa recta or significant mesenteric or retroperitoneal lymphadenopathy is seen. No abdominal abscess or fistulous tract demonstrated. ABDOMINAL AND PELVIC CT FINDINGS: Liver, gallbladder, biliary tract: Fatty liver. No focal liver lesion. Gallstones. No biliary duct dilatation. Pancreas: Atrophic changes of the pancreas. Spleen: Normal Adrenal glands and kidneys: The right adrenal gland and kidney have been removed. The left adrenal gland and kidney are normal-appearing. Ureters and bladder: Normal Lymphovascular structures: Atherosclerotic disease. No aneurysm. No lymphadenopathy. No ascites. Bones: Degenerative changes of the spine. Anterior subluxation of L3 and L4 with respect to L2 and L5. Lung bases: The lung bases are clear. CT/CT enterography IMPRESSION: Postsurgical changes following resection of the right kidney and adrenal gland and right colectomy with right upper quadrant ileocolic anastomosis. Small bowel is otherwise normal. The colon is distended and filled with fluid. 6 mm radiopaque density in the distal transverse colon probably representing something the patient has ingested. No wall thickening or mass is appreciated. Fatty liver. Gallstones.
[2022-09-13] MEDS: iohexoL 350 MG/ML 100 ML INFUS..BTL IV (15:22)
[2022-09-13] MEDS: Sorbitol/Mannit/Xanth Imaging 500 ML LIQUID 1500 ML PO (15:23)
[2022-09-14 12:11] LABS: Creatinine POC 1.1 mg/dL (0.5-1.4); GFR POC 52
== END 2022-09-13 13:46 | disposition home or self-care (01) ==
LOC: HO.US 13:45
PROVIDERS: Visit Provider Internal Medicine Gastroenterology
DX: R10.33 Periumbilical pain (principal)
CPT/HCPCS: 74177; 82565; Q9967

== ENCOUNTER 2022-12-25 11:01 | Inpatient (IN) | payer MEDICARE, BC, SELFPAY ==
[2022-12-25] VITALS (9 sets, daily range): BP systolic 133–175; BP diastolic 71–91; PULSE 79–103; RESP 13–26; TEMP 36.1–36.9; O2SAT 95–100; BMI 24.4; BMI 24.0
--- NOTE | ~2022-12-25 | XR_ITS ---
EXAMINATION: XR CHEST CLINICAL INFORMATION: Cough COMPARISON: September 15, 2020 TECHNIQUE: 2 views of the chest were obtained. FINDINGS: No significant abnormality is noted involving the heart, lungs, mediastinum, bony thorax or soft tissues. Aortic calcification present. XR/XR chest 2V IMPRESSION: No acute disease.
--- NOTE | ~2022-12-25 | XR_ITS ---
EXAMINATION: XR CHEST CLINICAL INFORMATION: Post code, endotracheal tube COMPARISON: 12/25/2022 TECHNIQUE: Frontal view of the chest was obtained. FINDINGS: Endotracheal tube tip lies approximately 2.5 cm above the audie. Lung volumes are symmetric. No focal consolidation is seen. No evidence of pneumothorax, pleural effusion, or pulmonary edema. Cardiac size is within normal limits. Calcification is present at the aortic arch. No acute osseous findings are seen. XR/XR chest 1V IMPRESSION: Endotracheal tube tip 2.5 cm above the audie. No acute cardiopulmonary findings.
--- NOTE | ~2022-12-25 | CT_ITS ---
EXAMINATION: CT HEAD WITHOUT CONTRAST CLINICAL INFORMATION: Vision changes post cardiac arrest. COMPARISON: None. TECHNIQUE: Contiguous axial imaging was performed from the skullbase to vertex without intravenous administration of contrast. This CT examination was performed using dose optimization techniques as appropriate, variously including the following: *Automated exposure control *Adjustment of mA and/or kV according to patient size (this includes techniques or standardized protocols for targeted exams where dose is matched to indication/reason for exam; i.e. extremities or head) *Use of iterative reconstruction technique DLP: 588 mGy-cm. FINDINGS: There is no evidence of acute intracranial hemorrhage or territorial infarction. No abnormal mass effect or midline shift is seen. Reddy to white matter differentiation is well preserved. No extra-axial fluid collections are identified. The ventricles are normal in size. There is no abnormal attenuation within the brain parenchyma. The osseous structures and soft tissues are normal. The mastoid air cells and visualized portions of the paranasal sinuses are well aerated. CT/CT head/brain wo IV con IMPRESSION: No acute intracranial pathology.
--- NOTE | ~2022-12-25 | XR_ITS ---
EXAMINATION: XR CHEST CLINICAL INFORMATION: Orogastric tube placement COMPARISON: Earlier same date TECHNIQUE: Frontal view of the chest was obtained. FINDINGS: Endotracheal tube terminates 4.7 cm above the audie. Enteric tube courses through the stomach. Normal symmetric lung volumes. No parenchymal consolidation. No pleural effusion. No pneumothorax. Cardiomediastinal silhouette and pulmonary vascularity are within normal limits. No acute osseous abnormalities. XR/XR chest 1V IMPRESSION: * Endotracheal tube terminates 4.7 cm above the audie. * Enteric tube courses through the stomach.
--- NOTE | ~2022-12-25 | XR_ITS ---
EXAMINATION: XR RIBS, BILATERAL CLINICAL INFORMATION: Rib pain post CPR COMPARISON: Previous chest x-ray most recent 12/26/2022 TECHNIQUE: 3 views of the bilateral ribs and one view of the chest were obtained. FINDINGS: Lungs are clear. No consolidation, pneumothorax, or pleural effusion. The cardiomediastinal silhouette and pulmonary vasculature are normal. Degenerative changes of the spine. Ribs are intact. No fractures are identified. XR/XR ribs BI min 4V w CXR1V IMPRESSION: Unremarkable examination.
--- NOTE | 2022-12-25 11:08 | ED.SOB ---
HPI - SOB/Dyspnea General Chief Complaint: Asthma <OLIVER Mccoy - Last Filed: 12/25/22 11:13> Stated Complaint: Difficulty breathing <OLIVER Mccoy - Last Filed: 12/25/22 11:13> Time Seen by Provider: 12/25/22 11:21 <OLIVER Mccoy - Last Filed: 12/25/22 11:13> History of Present Illness HPI Narrative: Patient came to the ER very short of breath and wheezing, she has been wheezing off and on for several weeks along with a cough that is been coming and going for the last several weeks, she saw her doctor who prescribed a an albuterol nebulizer and that has been somewhat helpful but the wheezing continues, she has not taken any steroids in the last several weeks, no chest pain no fainting no feeling faint no nausea vomiting denies any leg swelling denies any calf pain no calf injury no calf swelling <OLIVER Cruz - Last Filed: 12/25/22 15:51> Related Data Home Medications: Home Medications Medication Instructions Recorded Confirmed cyanocobalamin (vitamin B-12) 1,000 mcg PO DAILY 08/12/20 05/29/22 1,000 mcg capsule apixaban 2.5 mg tablet (Eliquis) 2.5 mg PO BID 07/12/21 05/29/22 THC oral drop PO .QHS 08/11/21 05/29/22 hydromorphone 2 mg tablet 4 mg PO BID PRN pain 04/10/22 05/29/22 (Dilaudid) topiramate 50 mg tablet 50 mg PO DAILY PRN LAU 05/29/22 Previous Rx's Medication Instructions Recorded cholecalciferol (vitamin D3) 50 50 mcg PO DAILY #90 caps 04/04/22 mcg (2,000 unit) capsule cyclobenzaprine 10 mg tablet 10 mg PO BID PRN for muscle spasm 08/14/22 #60 tabs duloxetine 60 mg capsule,delayed 60 mg PO DAILY 30 days #90 caps 08/14/22 release omeprazole 40 mg capsule,delayed 40 mg PO DAILY #90 caps 08/16/22 release famotidine 20 mg tablet 20 mg PO BEDTIME 90 days #90 tabs 09/14/22 zolpidem 10 mg tablet 10 mg PO BEDTIME PRN insomnia 90 09/14/22 days #90 tabs benzonatate 200 mg capsule 200 mg PO BID-TID PRN cough #20 11/07/22 caps nebulizers (Aeroneb Go Nebulizer) #1 ea 11/13/22 montelukast 10 mg tablet 10 mg PO DAILY #90 tabs 11/16/22 (Singulair) hyoscyamine sulfate 0.125 mg 0.125 mg PO QID #120 tabs 11/22/22 disintegrating tablet mesalamine 500 mg capsule,extended 1,000 mg PO TID #240 caps 11/22/22 release albuterol sulfate 90 mcg/actuation 2 puff PO Q4H PRN for muscle spasm 12/04/22 aerosol inhaler #8.5 ea prochlorperazine maleate 5 mg 5 mg PO TID PRN nausea and 12/04/22 tablet vomiting #30 tabs albuterol sulfate 1.25 mg/3 mL See Rx Instructions .Route 12/20/22 solution for nebulization .COMPLEX #75 mL <OLIVER Mccoy - Last Filed: 12/25/22 11:13> Allergies/Adverse Reactions: Allergies Allergy/AdvReac Type Severity Reaction Status Date / Time lisinopril [LISINOPRIL] Allergy Intermediate COUGH, Verified 12/25/22 11:08 constant cough simvastatin [SIMVASTATIN] Allergy Mild Confusion Verified 12/25/22 11:08 <OLIVER Mccoy - Last Filed: 12/25/22 11:13> FOR[facility]LY [facility], LAT[facility] Past Medical History Source: nursing notes reviewed <OLIVER Cruz - Last Filed: 12/25/22 15:51> Medical History: Medical History (Updated 12/25/22 @ 15:51 by OLIVER Cruz) Asthma Chronic low back pain Colon cancer screening GERD (gastroesophageal reflux disease) History of DVT (deep vein thrombosis) Hypercholesterolemia Hypertension Insomnia Polyarthralgia Radicular low back pain Scalp mass Secondary malignant neoplasm of retroperitoneum and peritoneum Tubular adenoma of colon Vitamin B12 deficiency Vitamin D deficiency <OLIVER Mccoy - Last Filed: 12/25/22 11:13> Surgical History: Surgical History History of back surgery History of section History of colonoscopy History of excision of mass (~01/11/22) History of nephroureterectomy History of tonsillectomy History of tubal ligation Hx of endoscopy Retroperitoneal liposarcoma <OLIVER Mccoy - Last Filed: 12/25/22 11:13> Family History Family History: Family History Father Myocardial infarction CVD (cardiovascular disease) Mother CVD (cardiovascular disease) Stroke Brother Myocardial infarction CVD (cardiovascular disease) <OLIVER Mccoy - Last Filed: 12/25/22 11:13> Social History Social History: Social History Household Members: Spouse and Family Housing: House Do you presently have visiting nurse or other home services: No Alcohol intake: never Patient Tobacco Use Status: Never used Tobacco e-Cigarette/Vaping Use: Never Used Second Hand Smoke Exposure: No Substance Use Type: Marijuana and Other Advance Directives: No Advance Directives Information Provided: No service: No Current occupational status: retired Cognitive needs: No Hearing needs: No Vision needs: Yes <OLIVER Mccoy - Last Filed: 12/25/22 11:13> Physical Exam Vital Signs: Vital Signs: Last Vital Signs Temp 97.9 F 12/25/22 14:11 Pulse 87 12/25/22 14:11 Resp 18 12/25/22 14:11 BP 156/71 H 12/25/22 14:11 Pulse Ox 98 12/25/22 14:11 O2 Del Method 12/25/22 14:11 BMI result Body Mass Index 24.4 <OLIVER Mccoy - Last Filed: 12/25/22 11:13> Vital Signs: Last Vital Signs Temp 97.9 F 12/25/22 14:11 Pulse 87 12/25/22 14:11 Resp 18 12/25/22 14:11 BP 156/71 H 12/25/22 14:11 Pulse Ox 98 12/25/22 14:11 O2 Del Method 12/25/22 14:11 BMI result Body Mass Index 24.4 <OLIVER Cruz - Last Filed: 12/25/22 15:51> General appearance is anxious breathing fast uncomfortable The eyes no redness or discharge The pharynx is clear without redness swelling or exudate, membranes are moist Neck is supple The chest has prolonged expiration, both inspiratory and expiratory wheezing, diminished air movement, but patient is able to speak full sentences Heart no murmur auscultated Abdomen soft nontender Extremities no edema no calf tenderness or swelling <OLIVER Cruz - Last Filed: 12/25/22 15:51> Course Course Course Narrative: RME - 72 yo female with history of asthma presents to the ER for evaluation of worsening SOB for the last couple of weeks, acutely worse last night. Worse with laying down and ambulation. +productive cough, no fevers. Using nebs at home with no relief. Wheezing and rhonchorous in triage, SpO2 98%. RR mid 20s. Brought back to [facility] for breathign treatment, IV steroids and Mg++. <OLIVER Mccoy - Last Filed: 12/25/22 11:13> RME - 72 yo female with history of asthma presents to the ER for evaluation of worsening SOB for the last couple of weeks, acutely worse last night. Worse with laying down and ambulation. +productive cough, no fevers. Using nebs at home with no relief. Wheezing and rhonchorous in triage, SpO2 98%. RR mid 20s. Brought back to [facility] for breathign treatment, IV steroids and Mg++. Patient was treated with nebulizer Mag and steroid, after 1 hour continuous she felt very improved and shortness of breath at rest was almost done but still present When she walked she became very short of breath so we ordered another 1 hour continuous, rear exam showed still wheezing with some chest tightness, but improved from before Patient was walked with a sat meter and oxygen saturations dropped quickly into mid 80s and patient became very symptomatic and short of breath with sure walking Patient was admitted to medical service for asthma No significant findings on the lab evaluation, patient was negative for COVID and flu, chest x-ray did not show any pneumonia or fluid overload, finding was no acute disease <OLIVER Cruz - Last Filed: 12/25/22 15:51> Medications Administered Discontinued Medications Generic Name Dose Route Start Last Admin Trade Name Freq PRN Reason Stop Dose Admin Albuterol Sulfate 10 mg 12/25/22 11:09 12/25/22 11:19 Albuterol Sulfate (0.083%) 2.5 Mg/3 Ml Vial.Neb INHALE 12/25/22 11:10 10 mg ONCE ONE Administration Albuterol Sulfate 10 mg/ 0 mg 12/25/22 13:04 12/25/22 13:34 Ipratropium [place] 0.5 mg INHALE 12/25/22 13:05 1 each ONCE ONE Administration Magnesium Sulfate 2 gm in 50 mls @ 25 mls/hr 12/25/22 11:09 12/25/22 12:18 Magnesium Sulfate/H2o IV 12/25/22 13:08 Infused ONCE ONE Infusion Methylprednisolone Sodium Succinate 80 mg 12/25/22 11:09 12/25/22 11:41 Methylprednisolone Sod Succ 125 Mg/2 Ml Vial IVPUSH 12/25/22 11:10 80 mg ONCE ONE Administration <OLIVER Mccoy - Last Filed: 12/25/22 11:13> Medications Administered Discontinued Medications Generic Name Dose Route Start Last Admin Trade Name Freq PRN Reason Stop Dose Admin Albuterol Sulfate 10 mg 12/25/22 11:09 12/25/22 11:19 Albuterol Sulfate (0.083%) 2.5 Mg/3 Ml Vial.Neb INHALE 12/25/22 11:10 10 mg ONCE ONE Administration Albuterol Sulfate 10 mg/ 0 mg 12/25/22 13:04 12/25/22 13:34 Ipratropium [place] 0.5 mg INHALE 12/25/22 13:05 1 each ONCE ONE Administration Magnesium Sulfate 2 gm in 50 mls @ 25 mls/hr 12/25/22 11:09 12/25/22 12:18 Magnesium Sulfate/H2o IV 12/25/22 13:08 Infused ONCE ONE Infusion Methylprednisolone Sodium Succinate 80 mg 12/25/22 11:09 12/25/22 11:41 Methylprednisolone Sod Succ 125 Mg/2 Ml Vial IVPUSH 12/25/22 11:10 80 mg ONCE ONE Administration <OLIVER Cruz - Last Filed: 12/25/22 15:51> Medical Decision Making Lab Data MDM Lab Attestation statement: I reviewed the patient's lab results. <OLIVER Cruz - Last Filed: 12/25/22 15:51> Result Diagrams: 12/25/22 11:38 12/25/22 11:37 <OLIVER Mccoy - Last Filed: 12/25/22 11:13> Labs: Lab Results 12/25/22 12/25/22 12/25/22 Range/Units 11:37 11:37 11:38 WBC 7.0 (4.8-10.8) X10*3/uL RBC 4.28 (4.20-5.50) X10*6/uL Hgb 11.0 L (12.0-16.0) g/dl Hct 34.9 L (37.0-47.0) % MCV 81.5 (80.0-98.0) fL MCH 25.7 L (27.0-33.0) pg MCHC 31.5 (31.0-35.0) g/dl RDW 17.9 H (11.0-16.0) % Plt Count 286 (160-400) X10*3/uL MPV 8.8 L (9.4-12.3) fL Immature Gran % (Auto) 0.3 (0.0-0.4) % Neut % (Auto) 72.8 (45-73) % Lymph % (Auto) 13.4 L (20-40) % [place] % (Auto) 4.7 (2-11) % Eos % (Auto) 7.9 H (0-4) % Baso % (Auto) 0.9 (0-2) % Lymph # (Auto) 0.9 L (1.2-4.9) X10*3/uL [place] # (Auto) 0.3 (0.1-1.2) X10*3/uL Eos # (Auto) 0.6 H (0.0-0.4) X10*3/uL Baso # (Auto) 0.1 (0.0-0.2) X10*3/uL Abs Immat Gran (auto) 0.02 (0.00-0.03) X10*3/uL Absolute Neuts (auto) 5.1 (2.0-8.3) x10*3/uL Absolute Nucleated RBC 0.000 (0.0-0.012) X10*3/uL Nucleated RBC % (auto) 0.0 (0.0-0.2) /100WBC Sodium 137 (135-145) mmol/L Potassium 4.0 (3.3-5.1) mmol/L Chloride 108 (96-108) mmol/L Carbon Dioxide 19 L (22-29) mmol/L Anion Gap 14 (12-20) BUN 14 (9-16) mg/dL Creatinine 1.18 (0.5-1.4) mg/dL Estim Creat Clear Calc 38.2 Estimated GFR 45 Random Glucose 171 H (60-115) mg/dL Calcium 9.3 (8.4-10.2) mg/dL Magnesium 1.7 (1.6-2.6) mg/dL Total Bilirubin 0.5 (0.0-1.0) mg/dL Direct Bilirubin 0.2 (0.0-0.5) mg/dL AST 17 (5-31) U/L ALT 13 (0-31) U/L Alkaline Phosphatase 77 (39-117) U/L B-Natriuretic Peptide (<100) pg/mL Total Protein 6.2 L (6.5-8.0) g/dL Albumin 3.6 (3.5-5.0) g/dL COVID-19 (KAY) Negative (Negative) COVID-19 Clin Com See Note Influenza Type A (JOAQUIN) (Negative) Influenza Type B (JOAQUIN) (Negative) Influenza A & B Note 12/25/22 12/25/22 Range/Units 11:38 11:38 WBC (4.8-10.8) X10*3/uL RBC (4.20-5.50) X10*6/uL Hgb (12.0-16.0) g/dl Hct (37.0-47.0) % MCV (80.0-98.0) fL MCH (27.0-33.0) pg MCHC (31.0-35.0) g/dl RDW (11.0-16.0) % Plt Count (160-400) X10*3/uL MPV (9.4-12.3) fL Immature Gran % (Auto) (0.0-0.4) % Neut % (Auto) (45-73) % Lymph % (Auto) (20-40) % [place] % (Auto) (2-11) % Eos % (Auto) (0-4) % Baso % (Auto) (0-2) % Lymph # (Auto) (1.2-4.9) X10*3/uL [place] # (Auto) (0.1-1.2) X10*3/uL Eos # (Auto) (0.0-0.4) X10*3/uL Baso # (Auto) (0.0-0.2) X10*3/uL Abs Immat Gran (auto) (0.00-0.03) X10*3/uL Absolute Neuts (auto) (2.0-8.3) x10*3/uL Absolute Nucleated RBC (0.0-0.012) X10*3/uL Nucleated RBC % (auto) (0.0-0.2) /100WBC Sodium (135-145) mmol/L Potassium (3.3-5.1) mmol/L Chloride (96-108) mmol/L Carbon Dioxide (22-29) mmol/L Anion Gap (12-20) BUN (9-16) mg/dL Creatinine (0.5-1.4) mg/dL Estim Creat Clear Calc Estimated GFR Random Glucose (60-115) mg/dL Calcium (8.4-10.2) mg/dL Magnesium (1.6-2.6) mg/dL Total Bilirubin (0.0-1.0) mg/dL Direct Bilirubin (0.0-0.5) mg/dL AST (5-31) U/L ALT (0-31) U/L Alkaline Phosphatase (39-117) U/L B-Natriuretic Peptide 105 H (<100) pg/mL Total Protein (6.5-8.0) g/dL Albumin (3.5-5.0) g/dL COVID-19 (KAY) (Negative) COVID-19 Clin Com Influenza Type A (JOAQUIN) Negative (Negative) Influenza Type B (JOAQUIN) Negative (Negative) Influenza A & B Note See Note <OLIVER Mccoy - Last Filed: 12/25/22 11:13> Lab Results 12/25/22 12/25/22 12/25/22 Range/Units 11:37 11:37 11:38 WBC 7.0 (4.8-10.8) X10*3/uL RBC 4.28 (4.20-5.50) X10*6/uL Hgb 11.0 L (12.0-16.0) g/dl Hct 34.9 L (37.0-47.0) % MCV 81.5 (80.0-98.0) fL MCH 25.7 L (27.0-33.0) pg MCHC 31.5 (31.0-35.0) g/dl RDW 17.9 H (11.0-16.0) % Plt Count 286 (160-400) X10*3/uL MPV 8.8 L (9.4-12.3) fL Immature Gran % (Auto) 0.3 (0.0-0.4) % Neut % (Auto) 72.8 (45-73) % Lymph % (Auto) 13.4 L (20-40) % [place] % (Auto) 4.7 (2-11) % Eos % (Auto) 7.9 H (0-4) % Baso % (Auto) 0.9 (0-2) % Lymph # (Auto) 0.9 L (1.2-4.9) X10*3/uL [place] # (Auto) 0.3 (0.1-1.2) X10*3/uL Eos # (Auto) 0.6 H (0.0-0.4) X10*3/uL Baso # (Auto) 0.1 (0.0-0.2) X10*3/uL Abs Immat Gran (auto) 0.02 (0.00-0.03) X10*3/uL Absolute Neuts (auto) 5.1 (2.0-8.3) x10*3/uL Absolute Nucleated RBC 0.000 (0.0-0.012) X10*3/uL Nucleated RBC % (auto) 0.0 (0.0-0.2) /100WBC Sodium 137 (135-145) mmol/L Potassium 4.0 (3.3-5.1) mmol/L Chloride 108 (96-108) mmol/L Carbon Dioxide 19 L (22-29) mmol/L Anion Gap 14 (12-20) BUN 14 (9-16) mg/dL Creatinine 1.18 (0.5-1.4) mg/dL Estim Creat Clear Calc 38.2 Estimated GFR 45 Random Glucose 171 H (60-115) mg/dL Calcium 9.3 (8.4-10.2) mg/dL Magnesium 1.7 (1.6-2.6) mg/dL Total Bilirubin 0.5 (0.0-1.0) mg/dL Direct Bilirubin 0.2 (0.0-0.5) mg/dL AST 17 (5-31) U/L ALT 13 (0-31) U/L Alkaline Phosphatase 77 (39-117) U/L B-Natriuretic Peptide (<100) pg/mL Total Protein 6.2 L (6.5-8.0) g/dL Albumin 3.6 (3.5-5.0) g/dL COVID-19 (KAY) Negative (Negative) COVID-19 Clin Com See Note Influenza Type A (JOAQUIN) (Negative) Influenza Type B (JOAQUIN) (Negative) Influenza A & B Note 12/25/22 12/25/22 Range/Units 11:38 11:38 WBC (4.8-10.8) X10*3/uL RBC (4.20-5.50) X10*6/uL Hgb (12.0-16.0) g/dl Hct (37.0-47.0) % MCV (80.0-98.0) fL MCH (27.0-33.0) pg MCHC (31.0-35.0) g/dl RDW (11.0-16.0) % Plt Count (160-400) X10*3/uL MPV (9.4-12.3) fL Immature Gran % (Auto) (0.0-0.4) % Neut % (Auto) (45-73) % Lymph % (Auto) (20-40) % [place] % (Auto) (2-11) % Eos % (Auto) (0-4) % Baso % (Auto) (0-2) % Lymph # (Auto) (1.2-4.9) X10*3/uL [place] # (Auto) (0.1-1.2) X10*3/uL Eos # (Auto) (0.0-0.4) X10*3/uL Baso # (Auto) (0.0-0.2) X10*3/uL Abs Immat Gran (auto) (0.00-0.03) X10*3/uL Absolute Neuts (auto) (2.0-8.3) x10*3/uL Absolute Nucleated RBC (0.0-0.012) X10*3/uL Nucleated RBC % (auto) (0.0-0.2) /100WBC Sodium (135-145) mmol/L Potassium (3.3-5.1) mmol/L Chloride (96-108) mmol/L Carbon Dioxide (22-29) mmol/L Anion Gap (12-20) BUN (9-16) mg/dL Creatinine (0.5-1.4) mg/dL Estim Creat Clear Calc Estimated GFR Random Glucose (60-115) mg/dL Calcium (8.4-10.2) mg/dL Magnesium (1.6-2.6) mg/dL Total Bilirubin (0.0-1.0) mg/dL Direct Bilirubin (0.0-0.5) mg/dL AST (5-31) U/L ALT (0-31) U/L Alkaline Phosphatase (39-117) U/L B-Natriuretic Peptide 105 H (<100) pg/mL Total Protein (6.5-8.0) g/dL Albumin (3.5-5.0) g/dL COVID-19 (KAY) (Negative) COVID-19 Clin Com Influenza Type A (JOAQUIN) Negative (Negative) Influenza Type B (JOAQUIN) Negative (Negative) Influenza A & B Note See Note <OLIVER Cruz - Last Filed: 12/25/22 15:51> Discharge Plan Discharge Clinical Impression: Asthma exacerbation <OLIVER Mccoy - Last Filed: 12/25/22 11:13> Patient Disposition: Admitted As Inpatient <OLIVER Mccoy - Last Filed: 12/25/22 11:13> Prescriptions: No Action cholecalciferol (vitamin D3) 50 mcg (2,000 unit) capsule 50 mcg PO DAILY Qty: 90 3RF duloxetine 60 mg capsule,delayed release(DR/EC) 60 mg PO DAILY 30 Days Qty: 90 3RF cyclobenzaprine 10 mg tablet 10 mg PO BID PRN (Reason: for muscle spasm) Qty: 60 4RF omeprazole 40 mg capsule,delayed release(DR/EC) 40 mg PO DAILY Qty: 90 1RF benzonatate 200 mg capsule 200 mg PO BID-TID PRN (Reason: cough) Qty: 20 0RF (DME) nebulizers [Aeroneb Go Nebulizer] [facility] See Rx Instructions .Route Qty: 1 0RF Rx Instructions: As directed updraft treatment every 4 hours p.r.n. montelukast [Singulair] 10 mg tablet 10 mg PO DAILY Qty: 90 3RF hyoscyamine sulfate 0.125 mg tablet,disintegrating 0.125 mg PO QID Qty: 120 1RF mesalamine 500 mg capsule, extended release 1,000 mg PO TID Qty: 240 0RF albuterol sulfate 90 mcg/actuation HFA aerosol inhaler 2 puff PO Q4H PRN (Reason: for muscle spasm) Qty: 8.5 0RF prochlorperazine maleate 5 mg tablet 5 mg PO TID PRN (Reason: nausea and vomiting) Qty: 30 1RF albuterol sulfate 1.25 mg/3 mL solution for nebulization See Rx Instructions .ROUTE .COMPLEX Qty: 75 0RF Dose Instruction: INHALE 2 VIALS (6ML) VIA NEBULIZER 4 TIMES A DAY NEEDED FOR WHEEZE/SHORTNESS OF BREATH Rx Instructions: INHALE 2 VIALS (6ML) VIA NEBULIZER 4 TIMES A DAY NEEDED FOR WHEEZE/SHORTNESS OF BREATH cyanocobalamin (vitamin B-12) 1,000 mcg capsule 1,000 mcg PO DAILY THC oral drop PO .QHS Rx Instructions: 8 drops topiramate 50 mg tablet 50 mg PO DAILY PRN (Reason: LAU) famotidine 20 mg tablet 20 mg PO BEDTIME 90 Days Qty: 90 1RF zolpidem 10 mg tablet 10 mg PO BEDTIME PRN (Reason: insomnia) 90 Days Qty: 90 1RF Eliquis 2.5 mg tablet 2.5 mg PO BID hydromorphone [Dilaudid] 2 mg tablet 4 mg PO BID PRN (Reason: pain) <OLIVER Mccoy - Last Filed: 12/25/22 11:13>
--- NOTE | 2022-12-25 11:11 | ECG_ITS ---
Test Reason : SOB Blood Pressure : / mmHG Vent. Rate : 082 BPM Atrial Rate : 082 BPM P-R Int : 136 ms QRS Dur : 084 ms QT Int : 392 ms P-R-T Axes : 063 053 079 degrees QTc Int : 457 ms Normal sinus rhythm Nonspecific ST and T wave abnormality Abnormal ECG When compared with ECG of 15-SEP-2020 16:45, No significant change was found Referred By: Anne Stinson Electronically Signed By:YOLANDA STEVENS
[2022-12-25] MEDS: Albuterol Sulfate (0.083%) 2.5 MG/3 ML VIAL.NEB 10 MG INHALE (11:19)
[2022-12-25] MEDS: methylPREDNISolone Sod Succ 125 MG/2 ML VIAL 80 MG IVPUSH (11:41)
[2022-12-25 11:44] LABS: MANUAL DIFF FLAG NO
[2022-12-25] MEDS: Magnesium Sulfate/H2O 2 GM/50 ML PIGGYBACK IV (11:44)
[2022-12-25 11:47] LABS: Basophils Absolute Auto 0.1 X10*3/uL (0.0-0.2); Basophils Percent Auto 0.9 % (0-2); Eosinophils Absolute Auto 0.6 X10*3/uL (0.0-0.4); Eosinophils Percent Auto 7.9 % (0-4); Hematocrit 34.9 % (37.0-47.0); Imm Gran Abs Auto 0.02 X10*3/uL (0.00-0.03); Imm Gran Pct Auto 0.3 % (0.0-0.4); Lymphocytes Absolute Auto 0.9 X10*3/uL (1.2-4.9); Lymphocytes Percent Auto 13.4 % (20-40); Mean Corpuscular HGB Conc 31.5 g/dl (31.0-35.0); Mean Corpuscular Hemoglobin 25.7 pg (27.0-33.0); Mean Corpuscular Volume 81.5 fL (80.0-98.0); Mean Platelet Volume 8.8 fL (9.4-12.3); Monocytes Absolute Auto 0.3 X10*3/uL (0.1-1.2); Monocytes Percent Auto 4.7 % (2-11); Neutrophils Absolute Auto 5.1 x10*3/uL (2.0-8.3); Neutrophils Percent Auto 72.8 % (45-73); Platelet Count 286 X10*3/uL (160-400); Red Blood Count 4.28 X10*6/uL (4.20-5.50); Red Cell Distribution Width 17.9 % (11.0-16.0)
[2022-12-25 12:00] LABS: IDNOW Serial# 6674DD1D
[2022-12-25 12:01] LABS: COVID-19 Test Negative (Negative)
[2022-12-25 12:06] LABS: Alanine Aminotransferase 13 U/L (0-31); Albumin Level 3.6 g/dL (3.5-5.0); Alkaline Phosphatase 77 U/L (39-117); Anion Gap 14 (12-20); Aspartate Amino Transferase 17 U/L (5-31); Bilirubin Direct 0.2 mg/dL (0.0-0.5); Bilirubin Total 0.5 mg/dL (0.0-1.0); Blood Urea Nitrogen 14 mg/dL (9-16); Calcium 9.3 mg/dL (8.4-10.2); Carbon Dioxide 19 mmol/L (22-29); Chloride 108 mmol/L (96-108); Creatinine Clr Calc Pharmacy 38.2; Estimated Glomerular Filt Rate 45; Glucose Random 171 mg/dL (60-115); Magnesium 1.7 mg/dL (1.6-2.6); Sodium 137 mmol/L (135-145); Total Protein 6.2 g/dL (6.5-8.0)
[2022-12-25 12:07] LABS: IDNOW Serial# 16C4AD1C; Influenza A Negative (Negative); Influenza B2 Negative (Negative)
[2022-12-25 12:11] LABS: B Type Natriuretic Peptide 105 pg/mL (<100)
--- NOTE | 2022-12-25 15:52 | PM.IMHP ---
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 She states she has a remote history of asthma, but symptoms recurred after developing a productive cough with yellow sputum production about 1 month ago and her PCP prescribed her an albuterol inhaler. The cough persists as well. Does also endorse pleuritic chest pain. No sick contacts. Denies fevers, chills, n/v/d, abd pain, chest pressure. On arrival, with patient slightly tachypneic at 26, vitals otherwise normal without hypoxia. However with ambulation patient noted to desaturate into the 80s. No leukocytosis. Mild normocytic anemia with H/H 11.0/34.9%, mild eosinophilia 0.6x10^3. Renal function normal, electrolytes normal except for CO2 of 19. Glucose 171. Negative for COVID-19, influenza. CXR negative for any acute cardiopulmonary disease. In the ED, given 2 g magnesium sulfate, 8 mg IV methylprednisolone and albuterol. Review of Systems Review of Systems: General: No fevers, malaise, unintentional weight loss HEENT: No sore throat, nasal congestion, rhinorrhea, sinus pain, ear pain Cardiovascular: No chest pain, palpitations, or leg edema Respiratory: + shortness of breath, +wheezing, +cough GI: +chronic abd pain, and diarrhea. No nausea, vomiting, constipation, melena, hematochezia : No dysuria, hematuria, increased urinary frequency, decreased urinary output MSK: No myalgia, back pain Neuro: No headaches, weakness, paresthesias Skin: No rashes or lesions [facility] Medical History Asthma Chronic low back pain Colon cancer screening GERD (gastroesophageal reflux disease) History of DVT (deep vein thrombosis) Hypercholesterolemia Hypertension Insomnia Polyarthralgia Radicular low back pain Scalp mass Secondary malignant neoplasm of retroperitoneum and peritoneum Tubular adenoma of colon Vitamin B12 deficiency Vitamin D deficiency Family History Father Myocardial infarction CVD (cardiovascular disease) Mother CVD (cardiovascular disease) Stroke Brother Myocardial infarction CVD (cardiovascular disease) Surgical History History of back surgery History of section History of colonoscopy History of excision of mass (~01/11/22) History of nephroureterectomy History of tonsillectomy History of tubal ligation Hx of endoscopy Retroperitoneal liposarcoma Social History Household Members: Spouse and Family Housing: House Do you presently have visiting nurse or other home services: No Alcohol intake: never Patient Tobacco Use Status: Never used Tobacco e-Cigarette/Vaping Use: Never Used Second Hand Smoke Exposure: No Substance Use Type: Marijuana and Other Advance Directives: No Advance Directives Information Provided: No service: No Current occupational status: retired Cognitive needs: No Hearing needs: No Vision needs: Yes Meds Allergies Allergy/AdvReac Type Severity Reaction Status Date / Time lisinopril [LISINOPRIL] Allergy Intermediate COUGH, Verified 12/25/22 11:08 constant cough simvastatin [SIMVASTATIN] Allergy Mild Confusion Verified 12/25/22 11:08 Home Medications Medication Instructions Recorded Confirmed Last Taken Type cyanocobalamin (vitamin B-12) 1,000 mcg PO DAILY 08/12/20 05/29/22 Unknown History 1,000 mcg capsule apixaban 2.5 mg tablet (Eliquis) 2.5 mg PO BID 07/12/21 05/29/22 01/07/22 History THC oral drop PO .QHS 08/11/21 05/29/22 Unknown History hydromorphone 2 mg tablet 4 mg PO BID PRN pain 04/10/22 05/29/22 Unknown History (Dilaudid) topiramate 50 mg tablet 50 mg PO DAILY PRN LAU 05/29/22 Unknown History Physical Exam Vital Signs and Narrative: Vital Signs: Last Vital Signs Temp 97.9 F 12/25/22 14:11 Pulse 87 12/25/22 14:11 Resp 18 12/25/22 14:11 BP 156/71 H 12/25/22 14:11 Pulse Ox 98 12/25/22 14:11 O2 Del Method 12/25/22 14:11 BMI result Body Mass Index 24.4 Constitutional - Awake and Alert, No apparent distress Eyes - PERRLA, EOMI Cardiovascular - S1S2, RRR, No edema Respiratory - Normal lung expansion, Normal respiratory effort, No respiratory distress, bilateral coarse lung sounds with bilateral rhonchi and expiratory wheezing Gastrointestinal - mild diffuse abd pain without guarding or rebounding. ND; +BS Extremities - no calf tenderness bilaterally, no swelling Skin - Warm/Dry Neurological - Alert & oriented x3, 5/5 strength BUE and BLE Psychological - Appropriate affect Results Labs 12/25/22 11:38 12/25/22 11:37 Labs: Laboratory Results - last 24 hr 12/25/22 12/25/22 12/25/22 11:37 11:37 11:38 MCV 81.5 MCH 25.7 L MCHC 31.5 RDW 17.9 H Plt Count 286 MPV 8.8 L Immature Gran % (Auto) 0.3 Neut % (Auto) 72.8 Lymph % (Auto) 13.4 L Sanders % (Auto) 4.7 Eos % (Auto) 7.9 H Baso % (Auto) 0.9 Lymph # (Auto) 0.9 L Sanders # (Auto) 0.3 Eos # (Auto) 0.6 H Baso # (Auto) 0.1 Abs Immat Gran (auto) 0.02 Absolute Neuts (auto) 5.1 Absolute Nucleated RBC 0.000 Nucleated RBC % (auto) 0.0 Anion Gap 14 Estim Creat Clear Calc 38.2 Estimated GFR 45 Random Glucose 171 H Calcium 9.3 Magnesium 1.7 Total Bilirubin 0.5 Direct Bilirubin 0.2 AST 17 ALT 13 Alkaline Phosphatase 77 B-Natriuretic Peptide Total Protein 6.2 L Albumin 3.6 COVID-19 (KAY) Negative COVID-19 Clin Com See Note Influenza Type A (JOAQUIN) Influenza Type B (JOAQUIN) Influenza A & B Note 12/25/22 12/25/22 11:38 11:38 MCV MCH MCHC RDW Plt Count MPV Immature Gran % (Auto) Neut % (Auto) Lymph % (Auto) Sanders % (Auto) Eos % (Auto) Baso % (Auto) Lymph # (Auto) Sanders # (Auto) Eos # (Auto) Baso # (Auto) Abs Immat Gran (auto) Absolute Neuts (auto) Absolute Nucleated RBC Nucleated RBC % (auto) Anion Gap Estim Creat Clear Calc Estimated GFR Random Glucose Calcium Magnesium Total Bilirubin Direct Bilirubin AST ALT Alkaline Phosphatase B-Natriuretic Peptide 105 H Total Protein Albumin COVID-19 (KAY) COVID-19 Clin Com Influenza Type A (JOAQUIN) Negative Influenza Type B (JOAQUIN) Negative Influenza A & B Note See Note Imaging Radiologist's Impressions: Impressions Chest X-Ray 12/25/22 14:46 IMPRESSION: No acute disease. 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 CXR negative -IV methylprednisolone 40 mg b.i.d. -DuoNebs q.4h while awake -albuterol q.2h p.r.n. -Tessalon Perles and Robitussin AC p.r.n. for cough #History of DVT/portal vein thrombosis -continue eliquis #Chronic post-operative abdominal pain/diarrhea -Continue mesalamine and dilaudid -Follows outpt with GI #GERD/gastritis -continue famotidine, compazine prn DVT prophylaxis- SCPs, early ambulation Full code Time Spent With Patient Time: Total time managing care of this patient today ____ minutes. Quality Stroke Does the patient have a stroke diagnosis?: No VTE Prior VTE?: No VTE Risk Level:: Medical - moderate - high VTE Device Contraindication: Treatment Not Indicated VTE Drug Contraindication: N/A - Med Ordered
--- NOTE | 2022-12-25 17:12 | PC.NURSE ---
report called to S3 nurse Odilon. pt to go to room 384
--- NOTE | 2022-12-25 17:17 | PHA.MEDREC ---
MED REC COMPLETE, NO ISSUES Pharmacy Consult ? Medication Reconciliation Pharmacy has completed the medication reconciliation.
[2022-12-25] MEDS: Benzonatate 100 MG CAPSULE PO ×2 (18:36→20:01)
[2022-12-25] MEDS: Acetaminophen 325 MG TABLET 650 MG PO (21:58)
[2022-12-25] MEDS: methylPREDNISolone Sod Succ 40 MG/ML VIAL IVPUSH (22:46)
[2022-12-25] MEDS: Cyclobenzaprine HCl 10 MG TABLET PO (22:47)
[2022-12-25] MEDS: Zolpidem Tartrate 5 MG TABLET 10 MG PO (22:47)
[2022-12-25] MEDS: Famotidine 20 MG TABLET PO (22:47)
[2022-12-25] MEDS: Prochlorperazine Maleate 5 MG TABLET PO (22:47)
[2022-12-25] MEDS: Apixaban 2.5 MG TABLET PO (22:47)
[2022-12-25] MEDS: 0.9 % Sodium Chloride Flush 3 ML SYRINGE IVFLUSH (23:13)
[2022-12-26] VITALS (31 sets, daily range): BP systolic 89–198; BP diastolic 42–125; PULSE 65–127; RESP 13–21; TEMP 34.9–37.1; O2SAT 95–100; BMI 24.0
[2022-12-26] MEDS: Omeprazole 40 MG CAPSULE.DR PO (05:21)
--- NOTE | 2022-12-26 05:40 | ECG_ITS ---
Test Reason : afib Blood Pressure : / mmHG Vent. Rate : 134 BPM Atrial Rate : 000 BPM P-R Int : 000 ms QRS Dur : 090 ms QT Int : 314 ms P-R-T Axes : 000 072 191 degrees QTc Int : 468 ms Atrial fibrillation with rapid ventricular response with premature ventricular or aberrantly conducted complexes Marked ST abnormality, possible anterior subendocardial injury Abnormal ECG When compared with ECG of 25-DEC-2022 11:34, Atrial fibrillation has replaced Sinus rhythm Vent. rate has increased BY [address] now depressed in Anterolateral leads Referred By: Sara Brandon Electronically Signed By:YOLANDA STEVENS
[2022-12-26 05:44] LABS: Glucose, Whole Blood 216 mg/dL (60-115)
--- NOTE | 2022-12-26 05:46 | PM.EVENT ---
Event Note Date of Service: 12/26/22 Event Note: A rapid response was called on the pt for hypoxic resp failure. on my arrival to the room, pt was apneic, with cyanotic lips, finger tips. She then became unresponsive within seconds and went into cardia carrest. was unable to palpate a pulse. CRP was initiated. SHe received 1 dose of epi, calcium chloride as well as one dose of bicarb. ROSC was achived 5 mins later. Pt was also intubated during these 5 mins. ICU attending informed and pt will be transferred to ICU Time Spent With Patient Time: Total time managing care of this patient today ____ minutes.
--- NOTE | 2022-12-26 06:00 | PC.NURSE ---
Addendum entered by Jody Julien RN 12/26/22 06:26: Report was called and given to JOSELYN Henry Original Note: While this display card writer was on the hallway outside pt's room, pt was seen going to the BR at 0524 and then she walked back to bed, she suddenly calling for help, pt was seen having labored breathing sitting at the bedside, RT was called to come give a neb treatment, as i hung up the phone I went to get a nasal cannula and NRB mask to support the pt, as I reentered the room pt was pale and cyanotic and called for HEALTH AND SAFETY INSPECTOR, then noted pt O2 sats at 40s and Loss her consciousness, peyton cardoso was called, CPR started at 0530, pt was intubated and ROSC was attained, pt was transported to ICU after.
[2022-12-26] MEDS: propofoL 1,000 MG/100 ML VIAL 11.77 MG IVCONT (06:07)
[2022-12-26 06:32] LABS: VBG HCO3 19 mmol/L (22-26); VBG pCO2 42 mmHg; VBG pH 7.26 (7.32-7.43); VBG pO2 312 mmHg
[2022-12-26 06:38] LABS: MANUAL DIFF FLAG NO
--- NOTE | 2022-12-26 06:40 | PC.NURSE ---
assumed care in icu s/p code epix2, cpr 5mins, ROSC achieved on medsurg, pt intubated on med sureg 22at lip ac 14 350 5 and 100%, prop started, bowers placed urine sent, cxr confirmed Et placement, lab at bedside to draw labs, family updated by Sara RUSHING
[2022-12-26 06:52] LABS: Basophils Absolute Auto 0.1 X10*3/uL (0.0-0.2); Basophils Percent Auto 0.3 % (0-2); Eosinophils Percent Auto 0.2 % (0-4); Hematocrit 37.6 % (37.0-47.0); Hemoglobin 12.2 g/dl (12.0-16.0); Imm Gran Abs Auto 0.59 X10*3/uL (0.00-0.03); Imm Gran Pct Auto 2.9 % (0.0-0.4); Lymphocytes Absolute Auto 1.4 X10*3/uL (1.2-4.9); Lymphocytes Percent Auto 6.9 % (20-40); Mean Corpuscular HGB Conc 32.4 g/dl (31.0-35.0); Mean Corpuscular Hemoglobin 26.5 pg (27.0-33.0); Mean Corpuscular Volume 81.7 fL (80.0-98.0); Mean Platelet Volume 9.4 fL (9.4-12.3); Monocytes Absolute Auto 1.2 X10*3/uL (0.1-1.2); Neutrophils Absolute Auto 16.9 x10*3/uL (2.0-8.3); Neutrophils Percent Auto 83.7 % (45-73); Platelet Count 360 X10*3/uL (160-400); White Blood Count 20.2 X10*3/uL (4.8-10.8)
[2022-12-26 07:00] LABS: Anion Gap 19 (12-20); Blood Urea Nitrogen 13 mg/dL (9-16); Carbon Dioxide 17 mmol/L (22-29); Chloride 106 mmol/L (96-108); Creatinine Clr Calc Pharmacy 38.2; Estimated Glomerular Filt Rate 45; Glucose Random 244 mg/dL (60-115); Potassium 4.3 mmol/L (3.3-5.1); Sodium 138 mmol/L (135-145)
[2022-12-26 07:01] LABS: B Type Natriuretic Peptide 150 pg/mL (<100)
[2022-12-26 07:05] LABS: Amphetamine Screen Urine Not Detected (Not Detect); Barbiturates, Urine Not Detected (Not Detect); Benzodiazepines Screen Urine Not Detected (Not Detect); Cannabinoid Screen Urine Not Detected (Not Detect); Cocaine Screen Urine Not Detected (Not Detect); Fentanyl, urine Not Detected (Not Detect); Opiate Screen Urine Not Detected (Not Detect); Phencyclidine Screen Urine Not Detected (Not Detect)
[2022-12-26 07:05] LABS: Alanine Aminotransferase 230 U/L (0-31); Albumin Level 3.9 g/dL (3.5-5.0); Alkaline Phosphatase 93 U/L (39-117); Anion Gap 19 (12-20); Aspartate Amino Transferase 331 U/L (5-31); Bilirubin Total 0.5 mg/dL (0.0-1.0); Blood Urea Nitrogen 13 mg/dL (9-16); Carbon Dioxide 17 mmol/L (22-29); Chloride 105 mmol/L (96-108); Creatinine Clr Calc Pharmacy 38.2; Estimated Glomerular Filt Rate 45; Glucose Random 246 mg/dL (60-115); Magnesium 2.2 mg/dL (1.6-2.6); Phosphorus 6.8 mg/dL (2.7-4.5); Potassium 4.3 mmol/L (3.3-5.1); Sodium 137 mmol/L (135-145); Total Protein 6.6 g/dL (6.5-8.0)
[2022-12-26 07:06] LABS: Appearance Urine Clear; Color Urine Yellow; Glucose Urine UA 500 mg/dL (Negative); Leukocyte Esterase Urine Negative (Negative); Nitrite Urine Negative (Negative); PH 6.5 (5.0-9.0); UMIC TRIGGER UACC YES; Urine Blood Moderate (2+) (Negative); Urine Ketones Negative (Negative); Urine Protein 300 (3+) mg/dL (Neg-Trace)
[2022-12-26 07:13] LABS: Bacteria Urine None Seen (None Seen); Squamous Epithelial Cell Urine 0-2 /HPF (0-2); WBC Urine 0-5 /HPF (0-5)
[2022-12-26 07:17] LABS: Calcium 11.7 mg/dL (8.4-10.2)
[2022-12-26 07:21] LABS: Calcium 11.7 mg/dL (8.4-10.2)
[2022-12-26 07:25] LABS: Lactic Acid 5.2 mmol/L (0.5-2.0); Venous Blood Gas Refer to POC result
[2022-12-26] MEDS: 0.9 % Sodium Chloride Flush 3 ML SYRINGE IVFLUSH ×2 (07:39→15:06)
--- NOTE | 2022-12-26 08:30 | CA_ITS ---
Transthoracic Echocardiogram Patient (Last, First, Middle): Maru Patel L Gender: Female Date of : 1950 Age: 72 Procedure Date: 12/26/2022 Procedure Type: Transthoracic Echocardiogram Location: ICU Height: 165.1 cm Weight: 65.32 kg BSA: 1.72 m2 Heart Rate: bpm BP: 123 / 74 mmHg Solar Hot Water Installer: Referring MD: Tom Martínez MD Symptoms: s/p cardiac arrest Study Quality: Fair ECG Rhythm: Sinus Conclusions: - The left ventricular systolic function is hyperdynamic. The visually estimated ejection fraction is >70%. - There is mild mitral annular calcification. - No obvious valvular pathology seen on this study. Findings Left Ventricle Normal left ventricular cavity size. There is mildly increased left ventricular wall thickness. The left ventricular systolic function is hyperdynamic. The visually estimated ejection fraction is >70%. There is no evidence of regional wall motion abnormalities. E/E prime ratio is >15, consistent with elevated filling pressures. Evidence suggests grade I (mild) diastolic dysfunction. Right Ventricle Normal right ventricular cavity size. There is mildly decreased right ventricular systolic function. Atria Both atria are normal in size. Aortic Valve The aortic valve was not well visualized. There is no aortic valve stenosis. There is no aortic valve regurgitation. Mitral Valve There is mild mitral annular calcification. There is trace mitral valve regurgitation. There is no mitral valve stenosis. Pulmonic Valve The pulmonic valve is likely normal. Tricuspid Valve There is trace tricuspid valve regurgitation. There is no evidence of pulmonary hypertension. Great Vessels The asc aorta is normal in size. Venous The inferior vena cava is normal in size and collapses greater than 50% with inspiration. Pericardium/Pleural There is no evidence of pericardial effusion. Prior Study Comparison No prior study available for comparison. Recommendations, Care & Conclusions No obvious valvular pathology seen on this study. Measurements 2D Linear Measurements IVSd: 1.20 0.6-0.9/0.6-1.0 cm LVIDd: 3.71 3.9-5.3/4.2-5.9 cm LVIDd Index: 2.16 2.4-3.2/2.2-3.1 cm/m2 LVIDs: 2.75 2.0-3.6 cm LVPWd: 1.22 0.7-1.1 cm Ao Root: 3.60 2.1-3.5 cm LA Diam: 2.50 2.7-3.8/3.0-4.0 cm LAIDs Index: 1.45 1.5-2.3 cm/m2 LV Mass: 186.45 67-162/88-224 g LV Mass Index: 108.40 43-95/49-115 g/m2 LVOT Diam: 2.00 3.0+(-)1.3 cm 2D Systolic Function EF 4C: 76.60 >55% EF 2C: 65.20 >55% EF BiP: 69.40 >55% Mitral Valve MV Pk E: 0.59 MV PK A: 0.85 MV Decel Time: 213.00 E/A: 0.70 E'Lateral: 4.68 E'Medial: 4.79 E/E' Med: 12.40 E/E' Lat: 12.70 PHT: 62.00 MVA PHT: 3.55 Decel Stoddard: 2.79 Aortic Valve AoV Pk Chance: 1.12 AoV Mn Chance: 0.75 AoV VTI: 0.21 AoV Pk Grad: 5.00 Aov Mn Grad: 3.00 MARK Cont.VTI: 2.64 LVOT LVOT Pk Chance: 0.93 LVOT Mn Chance: 0.62 LVOT VTI: 0.18 LVOT Pk Grad: 3.00 LVOT Mn Grad: 2.00 LVOT Diam: 2.00 LVOT Area: 3.14 Diastolic Function MV Pk E: 0.59 MV Pk A: 0.85 E/A: 0.70 E'Medial: 4.79 E/E' Med: 12.40 E' Laterial: 4.68 E/E' Lat: 12.70 Right Ventricle TAPSE (mm): 16.00 TVS' Chance: 10.00 Tricuspid Valve TR Pk Chance: 1.55 TR Pk Grad: 10.00 RA Press: 3.00 Great Vessels Aorta Ao Root-2D: 3.60 2.0-3.7 cm Ao Asc: 3.30 2.1-3.4 cm Pulmonary Valve PV Pk Chance: 0.90 Peak PV Grad: 3.00 Updated in Other Vendor System with Status of Final Jovani Sorto MD electronically signed on 12/26/2022 12:26:12 PM with status of Final
[2022-12-26 08:34] LABS: Reflex Lactate? Lactic Acid Added
[2022-12-26 09:42] LABS: ~Lactic Acid-LAB USE ONLY 2.4 mmol/L (0.5-2.0)
[2022-12-26] MEDS: Ampicillin Sodium/Sulbactam Na 3 GM in 0.9 % Sodium Chloride 100 ML IV ×2 (10:04→16:01)
[2022-12-26] MEDS: propofoL 1,000 MG/100 ML VIAL 19.62 MG IVCONT ×4 (10:05→23:21)
[2022-12-26] MEDS: fentaNYL citrate/NS 1,000 MCG/100 ML PLAST..BAG 2.5 MCG IVCONT (10:08)
[2022-12-26] MEDS: Apixaban 2.5 MG TABLET PO ×2 (10:08→20:55)
[2022-12-26] MEDS: Cyanocobalamin (Vitamin B-12) 1,000 MCG TABLET 1000 MCG PO (10:08)
[2022-12-26] MEDS: Cholecalciferol (Vitamin D3) 25 MCG TABLET 50 MCG PO (10:08)
[2022-12-26 11:20] LABS: Reflex Lactate? 2 Y
--- NOTE | 2022-12-26 11:34 | P.PNCC_ITS ---
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 , complicated surgical history with right nephroureterectomy, peritoneal sarcoma resection with right adrenalectomy, right colectomy with primary anastomosis, small-bowel resection with duodenal patch, and gastrojejunostomy 2018, admitted on 12/25/2022 with dyspnea and hypoxia and DM secondary to asthma exacerbation and treated with systemic glucocorticoids and nebulized bronchodilators with hospital course complicated by what appears to have been a respiratory arrest with bradycardia and hypoxia, possible asystoly with CPR initiated immediately and returned spontaneous circulation after 5 minutes/2 rounds with patient intubated during the CPR and transferred to intensive care unit the after. Post CPR patient following commands and requiring sedative drips. Overnight events as above. Critical Care Time (minutes): 60 Physical Exam Vital Signs: Vital Signs: Last Vital Signs Temp 97.5 F 12/26/22 11:00 Pulse 76 12/26/22 11:00 Resp 15 12/26/22 11:00 BP 98/56 L 12/26/22 11:00 Pulse Ox 97 12/26/22 11:00 O2 Del Method 12/26/22 11:00 FiO2 30 12/26/22 11:08 BMI result Body Mass Index 24.0 Const: General: no acute distress and other ( sedated on the vent) Eyes: Sclerae: sclerae normal EOM: EOMs intact bilaterally Neck: Neck: Yes no lymphadenopathy, Yes trachea midline and Yes supple Resp: Effort & Inspection: normal respiratory effort and no respiratory distress Auscultation: clear to auscultation bilaterally Cardio: Rate: regular rate Rhythm: regular rhythm Heart sounds: no gallops, no murmurs and no rubs GI: Palpation (GI): Soft to palpation and Other GI palpation findings present ( Nontender) Auscultation: normal bowel sounds Extrem: General: No clubbing, No cyanosis and Yes edema ( trace bilateral) Objective Data Labs 12/26/22 06:31 12/26/22 06:31 Labs: Laboratory Results - last 24 hr 12/25/22 12/25/22 12/25/22 11:37 11:37 11:38 WBC 7.0 RBC 4.28 Hgb 11.0 L Hct 34.9 L MCV 81.5 MCH 25.7 L MCHC 31.5 RDW 17.9 H Plt Count 286 MPV 8.8 L Immature Gran % (Auto) 0.3 Neut % (Auto) 72.8 Lymph % (Auto) 13.4 L [place] % (Auto) 4.7 Eos % (Auto) 7.9 H Baso % (Auto) 0.9 Lymph # (Auto) 0.9 L [place] # (Auto) 0.3 Eos # (Auto) 0.6 H Baso # (Auto) 0.1 Abs Immat Gran (auto) 0.02 Absolute Neuts (auto) 5.1 Absolute Nucleated RBC 0.000 Nucleated RBC % (auto) 0.0 VBG pH VBG pCO2 VBG pO2 VBG HCO3 VBG O2 Saturation VBG Base Excess Sodium 137 Potassium 4.0 Chloride 108 Carbon Dioxide 19 L Anion Gap 14 BUN 14 Creatinine 1.18 Estim Creat Clear Calc 38.2 Estimated GFR 45 POC Glucose Random Glucose 171 H Lactic Acid Lactic Acid F/U @ 2Hr Calcium 9.3 Phosphorus Magnesium 1.7 Total Bilirubin 0.5 Direct Bilirubin 0.2 AST 17 ALT 13 Alkaline Phosphatase 77 Troponin I High Sens B-Natriuretic Peptide Total Protein 6.2 L Albumin 3.6 Urine Color Urine Appearance Urine pH Ur Specific [place] Urine Protein Urine Glucose (UA) Urine Ketones Urine Blood Urine Nitrite Ur Leukocyte Esterase Urine RBC Urine WBC Ur Squamous Epith Cells Urine Bacteria Hyaline Casts Urine Opiates Screen Urine Fentanyl Screen Ur Barbiturates Screen Ur Phencyclidine Scrn Ur Amphetamines Screen U Benzodiazepines Scrn Urine Cocaine Screen U Marijuana (THC) Screen COVID-19 (KAY) Negative COVID-19 Clin Com See Note Influenza Type A (JOAQUIN) Influenza Type B (JOAQUIN) Influenza A & B Note 12/25/22 12/25/22 12/26/22 11:38 11:38 05:41 WBC RBC Hgb Hct MCV MCH MCHC RDW Plt Count MPV Immature Gran % (Auto) Neut % (Auto) Lymph % (Auto) [place] % (Auto) Eos % (Auto) Baso % (Auto) Lymph # (Auto) [place] # (Auto) Eos # (Auto) Baso # (Auto) Abs Immat Gran (auto) Absolute Neuts (auto) Absolute Nucleated RBC Nucleated RBC % (auto) VBG pH VBG pCO2 VBG pO2 VBG HCO3 VBG O2 Saturation VBG Base Excess Sodium Potassium Chloride Carbon Dioxide Anion Gap BUN Creatinine Estim Creat Clear Calc Estimated GFR POC Glucose 216 H Random Glucose Lactic Acid Lactic Acid F/U @ 2Hr Calcium Phosphorus Magnesium Total Bilirubin Direct Bilirubin AST ALT Alkaline Phosphatase Troponin I High Sens B-Natriuretic Peptide 105 H Total Protein Albumin Urine Color Urine Appearance Urine pH Ur Specific [place] Urine Protein Urine Glucose (UA) Urine Ketones Urine Blood Urine Nitrite Ur Leukocyte Esterase Urine RBC Urine WBC Ur Squamous Epith Cells Urine Bacteria Hyaline Casts Urine Opiates Screen Urine Fentanyl Screen Ur Barbiturates Screen Ur Phencyclidine Scrn Ur Amphetamines Screen U Benzodiazepines Scrn Urine Cocaine Screen U Marijuana (THC) Screen COVID-19 (KAY) COVID-19 Clin Com Influenza Type A (JOAQUIN) Negative Influenza Type B (JOAQUIN) Negative Influenza A & B Note See Note 12/26/22 12/26/22 12/26/22 06:15 06:15 06:25 WBC RBC Hgb Hct MCV MCH MCHC RDW Plt Count MPV Immature Gran % (Auto) Neut % (Auto) Lymph % (Auto) [place] % (Auto) Eos % (Auto) Baso % (Auto) Lymph # (Auto) [place] # (Auto) Eos # (Auto) Baso # (Auto) Abs Immat Gran (auto) Absolute Neuts (auto) Absolute Nucleated RBC Nucleated RBC % (auto) VBG pH 7.26 L VBG pCO2 42 VBG pO2 312 VBG HCO3 19 L VBG O2 Saturation 98.0 VBG Base Excess -7.0 Sodium Potassium Chloride Carbon Dioxide Anion Gap BUN Creatinine Estim Creat Clear Calc Estimated GFR POC Glucose Random Glucose Lactic Acid Lactic Acid F/U @ 2Hr Calcium Phosphorus Magnesium Total Bilirubin Direct Bilirubin AST ALT Alkaline Phosphatase Troponin I High Sens B-Natriuretic Peptide Total Protein Albumin Urine Color Yellow Urine Appearance Clear Urine pH 6.5 Ur Specific [place] 1.010 Urine Protein 300 (3+) H Urine Glucose (UA) 500 H Urine Ketones Negative Urine Blood Moderate (2+) H Urine Nitrite Negative Ur Leukocyte Esterase Negative Urine RBC 3-5 H Urine WBC 0-5 Ur Squamous Epith Cells 0-2 Urine Bacteria None Seen Hyaline Casts 3-5 Urine Opiates Screen Not Detected Urine Fentanyl Screen Not Detected Ur Barbiturates Screen Not Detected Ur Phencyclidine Scrn Not Detected Ur Amphetamines Screen Not Detected U Benzodiazepines Scrn Not Detected Urine Cocaine Screen Not Detected U Marijuana (THC) Screen Not Detected COVID-19 (KAY) COVID-19 Clin Com Influenza Type A (JOAQUIN) Influenza Type B (JOAQUIN) Influenza A & B Note 12/26/22 12/26/22 12/26/22 06:29 06:31 06:31 WBC 20.2 H RBC 4.60 Hgb 12.2 Hct 37.6 MCV 81.7 MCH 26.5 L MCHC 32.4 RDW 18.0 H Plt Count 360 D MPV 9.4 Immature Gran % (Auto) 2.9 H Neut % (Auto) 83.7 H Lymph % (Auto) 6.9 L [place] % (Auto) 6.0 Eos % (Auto) 0.2 Baso % (Auto) 0.3 Lymph # (Auto) 1.4 [place] # (Auto) 1.2 Eos # (Auto) 0.0 Baso # (Auto) 0.1 Abs Immat Gran (auto) 0.59 H Absolute Neuts (auto) 16.9 H Absolute Nucleated RBC 0.000 Nucleated RBC % (auto) 0.0 VBG pH VBG pCO2 VBG pO2 VBG HCO3 VBG O2 Saturation VBG Base Excess Sodium 138 Potassium 4.3 Chloride 106 Carbon Dioxide 17 L Anion Gap 19 BUN 13 Creatinine 1.18 Estim Creat Clear Calc 38.2 Estimated GFR 45 POC Glucose Random Glucose 244 H Lactic Acid 5.2 H* Lactic Acid F/U @ 2Hr Calcium 11.7 H D Phosphorus Magnesium Total Bilirubin Direct Bilirubin AST ALT Alkaline Phosphatase Troponin I High Sens B-Natriuretic Peptide Total Protein Albumin Urine Color Urine Appearance Urine pH Ur Specific [place] Urine Protein Urine Glucose (UA) Urine Ketones Urine Blood Urine Nitrite Ur Leukocyte Esterase Urine RBC Urine WBC Ur Squamous Epith Cells Urine Bacteria Hyaline Casts Urine Opiates Screen Urine Fentanyl Screen Ur Barbiturates Screen Ur Phencyclidine Scrn Ur Amphetamines Screen U Benzodiazepines Scrn Urine Cocaine Screen U Marijuana (THC) Screen COVID-19 (KAY) COVID-19 Clin Com Influenza Type A (JOAQUIN) Influenza Type B (JOAQUIN) Influenza A & B Note 12/26/22 12/26/22 12/26/22 06:31 06:31 06:31 WBC Cancelled RBC Cancelled Hgb Cancelled Hct Cancelled MCV Cancelled MCH Cancelled MCHC Cancelled RDW Cancelled Plt Count Cancelled MPV Cancelled Immature Gran % (Auto) Cancelled Neut % (Auto) Cancelled Lymph % (Auto) Cancelled [place] % (Auto) Cancelled Eos % (Auto) Cancelled Baso % (Auto) Cancelled Lymph # (Auto) Cancelled [place] # (Auto) Cancelled Eos # (Auto) Cancelled Baso # (Auto) Cancelled Abs Immat Gran (auto) Cancelled Absolute Neuts (auto) Cancelled Absolute Nucleated RBC Cancelled Nucleated RBC % (auto) Cancelled VBG pH VBG pCO2 VBG pO2 VBG HCO3 VBG O2 Saturation VBG Base Excess Sodium 137 Potassium 4.3 Chloride 105 Carbon Dioxide 17 L Anion Gap 19 BUN 13 Creatinine 1.18 Estim Creat Clear Calc 38.2 Estimated GFR 45 POC Glucose Random Glucose 246 H Lactic Acid Lactic Acid F/U @ 2Hr Calcium 11.7 H Phosphorus 6.8 H Magnesium 2.2 Total Bilirubin 0.5 Direct Bilirubin AST 331 H ALT 230 H Alkaline Phosphatase 93 Troponin I High Sens 14.0 B-Natriuretic Peptide Total Protein 6.6 Albumin 3.9 Urine Color Urine Appearance Urine pH Ur Specific [place] Urine Protein Urine Glucose (UA) Urine Ketones Urine Blood Urine Nitrite Ur Leukocyte Esterase Urine RBC Urine WBC Ur Squamous Epith Cells Urine Bacteria Hyaline Casts Urine Opiates Screen Urine Fentanyl Screen Ur Barbiturates Screen Ur Phencyclidine Scrn Ur Amphetamines Screen U Benzodiazepines Scrn Urine Cocaine Screen U Marijuana (THC) Screen COVID-19 (KAY) COVID-19 Clin Com Influenza Type A (JOAQUIN) Influenza Type B (JOAQUIN) Influenza A & B Note 12/26/22 12/26/22 06:31 09:10 WBC RBC Hgb Hct MCV MCH MCHC RDW Plt Count MPV Immature Gran % (Auto) Neut % (Auto) Lymph % (Auto) [place] % (Auto) Eos % (Auto) Baso % (Auto) Lymph # (Auto) [place] # (Auto) Eos # (Auto) Baso # (Auto) Abs Immat Gran (auto) Absolute Neuts (auto) Absolute Nucleated RBC Nucleated RBC % (auto) VBG pH VBG pCO2 VBG pO2 VBG HCO3 VBG O2 Saturation VBG Base Excess Sodium Potassium Chloride Carbon Dioxide Anion Gap BUN Creatinine Estim Creat Clear Calc Estimated GFR POC Glucose Random Glucose Lactic Acid Lactic Acid F/U @ 2Hr 2.4 H* Calcium Phosphorus Magnesium Total Bilirubin Direct Bilirubin AST ALT Alkaline Phosphatase Troponin I High Sens B-Natriuretic Peptide 150 H Total Protein Albumin Urine Color Urine Appearance Urine pH Ur Specific [place] Urine Protein Urine Glucose (UA) Urine Ketones Urine Blood Urine Nitrite Ur Leukocyte Esterase Urine RBC Urine WBC Ur Squamous Epith Cells Urine Bacteria Hyaline Casts Urine Opiates Screen Urine Fentanyl Screen Ur Barbiturates Screen Ur Phencyclidine Scrn Ur Amphetamines Screen U Benzodiazepines Scrn Urine Cocaine Screen U Marijuana (THC) Screen COVID-19 (KAY) COVID-19 Clin Com Influenza Type A (JOAQUIN) Influenza Type B (JOAQUIN) Influenza A & B Note Progress Note: A&P Assessment and plan (1) Respiratory arrest: Status: Acute (2) Acute respiratory failure: Status: Acute (3) Asthma: Status: Acute (4) Secondary malignant neoplasm of retroperitoneum and peritoneum: Status: Acute Plan Assessment: 72-year-old lady with underlying complicated abdominal surgical history with asthma, DVT on anticoagulation admitted with hypoxia deemed to be secondary to asthma exacerbation with hospital course complicated by respiratory arrest, now on ventilatory support. Plan: Neuro: No acute issues. Cardiac: Respiratory arrest with returned spontaneous circulation after 5 minutes of CPR. 2D echocardiogram is pending. Pulmonary: Acute hypoxic respiratory failure with respiratory arrest now requiring ventilatory support. Continue to titrate off as tolerated. Underlying history of asthma. PE is less likely as patient has been anticoagulated. Renal: No acute issues. Endo: No acute issues. GI: No acute issues. ID: Possible pulmonary aspiration, empirically covered with Unasyn. Heme/Onc: No acute issues. Psych: No acute issues. Miscellaneous: No acute issues. Prophylaxis: Eliquis, ppi Diet: NPO Critical care time spent: 60 minutes Quality Stroke Does the patient have a stroke diagnosis?: No VTE Prior VTE?: No VTE Risk Level:: Medical - moderate - high VTE Device Contraindication: Treatment Not Indicated VTE Drug Contraindication: N/A - Med Ordered
[2022-12-26 12:19] LABS: ~Lactic Acid-LAB USE ONLY 2.5 mmol/L (0.5-2.0)
[2022-12-26] MEDS: Phenylephrine HCL 20 MG in 0.9 % Sodium Chloride 250 ML 24.72 MG IVCONT (16:46)
[2022-12-26] MEDS: fentaNYL citrate/NS 1,000 MCG/100 ML PLAST..BAG 10 MCG IVCONT (18:30)
[2022-12-27] VITALS (40 sets, daily range): BP systolic 86–168; BP diastolic 45–91; PULSE 59–102; RESP 12–23; TEMP 35.1–37.5; O2SAT 90–100; BMI 24.8
[2022-12-27] MEDS: Ampicillin Sodium/Sulbactam Na 3 GM in 0.9 % Sodium Chloride 100 ML IV ×3 (00:56→16:04)
[2022-12-27] MEDS: 0.9 % Sodium Chloride Flush 3 ML SYRINGE IVFLUSH ×3 (00:56→15:37)
[2022-12-27] MEDS: Albuterol Sulfate (0.083%) 2.5 MG/3 ML VIAL.NEB INHALE ×4 (01:20→14:58)
[2022-12-27] MEDS: Phenylephrine HCL 20 MG in 0.9 % Sodium Chloride 250 ML 74.16 MG IVCONT ×2 (01:49→05:07)
[2022-12-27] MEDS: propofoL 1,000 MG/100 ML VIAL 19.62 MG IVCONT ×2 (02:42→07:44)
[2022-12-27] MEDS: fentaNYL citrate/NS 1,000 MCG/100 ML PLAST..BAG 7.5 MCG IVCONT (04:02)
[2022-12-27 07:40] LABS: MANUAL DIFF FLAG NO
[2022-12-27 07:42] LABS: Basophils Absolute Auto 0.1 X10*3/uL (0.0-0.2); Basophils Percent Auto 1.1 % (0-2); Eosinophils Absolute Auto 0.6 X10*3/uL (0.0-0.4); Eosinophils Percent Auto 5.9 % (0-4); Hematocrit 33.9 % (37.0-47.0); Hemoglobin 10.8 g/dl (12.0-16.0); Imm Gran Abs Auto 0.06 X10*3/uL (0.00-0.03); Imm Gran Pct Auto 0.6 % (0.0-0.4); Lymphocytes Absolute Auto 2.3 X10*3/uL (1.2-4.9); Lymphocytes Percent Auto 22.3 % (20-40); Mean Corpuscular HGB Conc 31.9 g/dl (31.0-35.0); Mean Corpuscular Hemoglobin 26.3 pg (27.0-33.0); Mean Corpuscular Volume 82.5 fL (80.0-98.0); Mean Platelet Volume 9.6 fL (9.4-12.3); Monocytes Absolute Auto 0.8 X10*3/uL (0.1-1.2); Monocytes Percent Auto 7.8 % (2-11); Neutrophils Absolute Auto 6.5 x10*3/uL (2.0-8.3); Neutrophils Percent Auto 62.3 % (45-73); Platelet Count 301 X10*3/uL (160-400); Red Blood Count 4.11 X10*6/uL (4.20-5.50); Red Cell Distribution Width 18.6 % (11.0-16.0); White Blood Count 10.5 X10*3/uL (4.8-10.8)
[2022-12-27] MEDS: Cyanocobalamin (Vitamin B-12) 1,000 MCG TABLET 1000 MCG PO (07:43)
[2022-12-27] MEDS: Apixaban 2.5 MG TABLET PO ×2 (07:43→20:17)
[2022-12-27 07:47] LABS: VBG Base Excess -2.2 mmol/L; VBG HCO3 22 mmol/L (22-26); VBG pCO2 38 mmHg; VBG pH 7.37 (7.32-7.43); VBG pO2 63 mmHg
[2022-12-27 08:04] LABS: Venous Blood Gas Refer to POC result
[2022-12-27 08:15] LABS: Alanine Aminotransferase 124 U/L (0-31); Albumin Level 3.2 g/dL (3.5-5.0); Alkaline Phosphatase 67 U/L (39-117); Aspartate Amino Transferase 91 U/L (5-31); Bilirubin Total 0.3 mg/dL (0.0-1.0); Blood Urea Nitrogen 16 mg/dL (9-16); Creatinine Clr Calc Pharmacy 37.2; Estimated Glomerular Filt Rate 44; Glucose Random 88 mg/dL (60-115); Magnesium 1.9 mg/dL (1.6-2.6); Phosphorus 3.2 mg/dL (2.7-4.5); Total Protein 5.6 g/dL (6.5-8.0)
[2022-12-27 08:23] LABS: Anion Gap 15 (12-20); Calcium 9.2 mg/dL (8.4-10.2); Carbon Dioxide 22 mmol/L (22-29); Chloride 108 mmol/L (96-108); Potassium 4.5 mmol/L (3.3-5.1); Sodium 140 mmol/L (135-145)
--- NOTE | 2022-12-27 10:53 | MHC.CM.PN ---
IMM 12/27/22 FEMALE DX SOB WHEEZING S/P INTUB/EXTUBATION12/27/22 SHE LIVES WITH SPOUSE. SHE IS INDEPENDENT WITH ALL FUNCTIONAL MOBILITY. NO DME NO HOME O2. VAXXED X 5. DP HOME FAMILY ASSIST AND TRANSPORT
[2022-12-27] MEDS: fentaNYL citrate/PF 100 MCG/2 ML VIAL 25 MCG IVPUSH (12:35)
[2022-12-27] MEDS: guaiFEN/Codeine SF 200/20/10ML 10 ML LIQUID 5 ML PO (13:47)
[2022-12-27] MEDS: Ketorolac Tromethamine 15 MG/ML VIAL IVPUSH (14:00)
--- NOTE | 2022-12-27 14:05 | PM.CCPN ---
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 , complicated surgical history with right nephroureterectomy, peritoneal sarcoma resection with right adrenalectomy, right colectomy with primary anastomosis, small-bowel resection with duodenal patch, and gastrojejunostomy 2018, admitted on 12/25/2022 with dyspnea and hypoxia and DM secondary to asthma exacerbation and treated with systemic glucocorticoids and nebulized bronchodilators with hospital course complicated by what appears to have been a respiratory arrest with bradycardia and hypoxia, possible asystoly with CPR initiated immediately and returned spontaneous circulation after 5 minutes/2 rounds with patient intubated during the CPR and transferred to intensive care unit the after. Post CPR patient following commands and requiring sedative drips. 2D echo normal. No events overnight. Extubated uneventfully this a.m.. Critical Care Time (minutes): 45 Physical Exam Vital Signs: Vital Signs: Last Vital Signs Temp 97.5 F 12/27/22 11:00 Pulse 102 H 12/27/22 13:00 Resp 19 12/27/22 13:00 BP 150/81 H 12/27/22 13:00 Pulse Ox 91 L 12/27/22 13:00 O2 Del Method 12/27/22 13:00 O2 Flow Rate 1 12/27/22 13:00 FiO2 30 12/27/22 09:00 BMI result Body Mass Index 24.8 Const: General: no acute distress, alert and awake Eyes: Sclerae: sclerae normal EOM: EOMs intact bilaterally Neck: Neck: Yes no lymphadenopathy, Yes trachea midline and Yes supple Resp: Effort & Inspection: normal respiratory effort and no respiratory distress Auscultation: clear to auscultation bilaterally Cardio: Rate: tachycardic Rhythm: regular rhythm Heart sounds: no gallops, no murmurs and no rubs GI: Palpation (GI): Soft to palpation and Other GI palpation findings present ( Nontender) Auscultation: normal bowel sounds Extrem: General: Yes no pedal edema, No clubbing and No cyanosis Objective Data Labs 12/27/22 07:36 12/27/22 07:36 Labs: Laboratory Results - last 24 hr 12/27/22 12/27/22 12/27/22 07:36 07:36 07:40 WBC 10.5 RBC 4.11 L Hgb 10.8 L Hct 33.9 L MCV 82.5 MCH 26.3 L MCHC 31.9 RDW 18.6 H Plt Count 301 MPV 9.6 Immature Gran % (Auto) 0.6 H Neut % (Auto) 62.3 Lymph % (Auto) 22.3 [place] % (Auto) 7.8 Eos % (Auto) 5.9 H Baso % (Auto) 1.1 Lymph # (Auto) 2.3 [place] # (Auto) 0.8 Eos # (Auto) 0.6 H Baso # (Auto) 0.1 Abs Immat Gran (auto) 0.06 H Absolute Neuts (auto) 6.5 Absolute Nucleated RBC 0.000 Nucleated RBC % (auto) 0.0 VBG pH 7.37 VBG pCO2 38 VBG pO2 63 VBG HCO3 22 VBG O2 Saturation 84.0 VBG Base Excess -2.2 Sodium 140 Potassium 4.5 Chloride 108 Carbon Dioxide 22 Anion Gap 15 BUN 16 Creatinine 1.21 Estim Creat Clear Calc 37.2 Estimated GFR 44 Random Glucose 88 Calcium 9.2 D Phosphorus 3.2 Magnesium 1.9 Total Bilirubin 0.3 AST 91 H ALT 124 H Alkaline Phosphatase 67 Total Protein 5.6 L Albumin 3.2 L Microbiology Microbiology Results: Microbiology 12/26/22 06:15 Urine Catheterized - Hyman Catheter Urine Culture - Final No growth. 12/26/22 06:31 Blood - Venous Blood Culture - Preliminary No growth after 24 hours. 12/26/22 06:31 Blood - Venous Blood Culture - Preliminary No growth after 24 hours. Progress Note: A&P Assessment and plan (1) Respiratory arrest: Status: Acute (2) Asthma exacerbation: Status: Acute (3) History of DVT (deep vein thrombosis): Status: Acute Plan Assessment: 72-year-old lady with underlying complicated abdominal surgical history with asthma, DVT on anticoagulation admitted with hypoxia deemed to be secondary to asthma exacerbation with hospital course complicated by respiratory arrest, now on ventilatory support. Plan: Neuro: No acute issues. Cardiac: Respiratory arrest with returned spontaneous circulation after 5 minutes of CPR. 2D echocardiogram is normal. Pulmonary: Acute hypoxic respiratory failure with respiratory arrest now requiring ventilatory support. Extubated uneventfully this a.m.. No clear etiology for the respiratory arrest is evident at this time, may have had an acute aspiration episode, now resolved. Renal: No acute issues. Endo: No acute issues. GI: No acute issues. ID: no evidence of sepsis, hypotension secondary to sedation Heme/Onc: No acute issues. Psych: No acute issues. Miscellaneous: No acute issues. Prophylaxis: Eliquis Diet: Regular Critical care time spent: 45 minutes Quality Stroke Does the patient have a stroke diagnosis?: No VTE Prior VTE?: No VTE Risk Level:: Medical - moderate - high VTE Device Contraindication: Treatment Not Indicated VTE Drug Contraindication: N/A - Med Ordered
[2022-12-27] MEDS: Lidocaine 4 % Patch ADH..PATCH 1 PATCH TRANSDERMA (15:33)
[2022-12-27] MEDS: ondansetron HCL 4 MG/2 ML VIAL IVPUSH (20:17)
[2022-12-27] MEDS: Morphine Sulfate 2 MG/ML CARTRIDGE 0.5 MG IVPUSH (20:34)
[2022-12-27] MEDS: LORazepam 0.5 MG TABLET 0.25 MG PO (21:57)
[2022-12-27] MEDS: Mesalamine 250 MG CAPSULE.ER 1000 MG PO (22:35)
[2022-12-28] VITALS (23 sets, daily range): BP systolic 128–178; BP diastolic 57–82; PULSE 68–87; RESP 12–27; TEMP 35.8–37.2; O2SAT 90–100; BMI 24.9
[2022-12-28] MEDS: Ampicillin Sodium/Sulbactam Na 3 GM in 0.9 % Sodium Chloride 100 ML IV ×2 (00:27→09:53)
[2022-12-28] MEDS: 0.9 % Sodium Chloride Flush 3 ML SYRINGE IVFLUSH ×3 (00:31→16:10)
[2022-12-28] MEDS: Morphine Sulfate 2 MG/ML CARTRIDGE 0.5 MG IVPUSH (06:17)
[2022-12-28 08:13] LABS: Venous Blood Gas Refer to POC result
[2022-12-28 08:14] LABS: Basophils Absolute Auto 0.1 X10*3/uL (0.0-0.2); Eosinophils Absolute Auto 0.7 X10*3/uL (0.0-0.4); Eosinophils Percent Auto 11.3 % (0-4); Hematocrit 33.2 % (37.0-47.0); Hemoglobin 10.4 g/dl (12.0-16.0); Imm Gran Abs Auto 0.03 X10*3/uL (0.00-0.03); Imm Gran Pct Auto 0.5 % (0.0-0.4); Lymphocytes Absolute Auto 1.1 X10*3/uL (1.2-4.9); Lymphocytes Percent Auto 18.2 % (20-40); MANUAL DIFF FLAG SCAN; Mean Corpuscular HGB Conc 31.3 g/dl (31.0-35.0); Monocytes Absolute Auto 0.4 X10*3/uL (0.1-1.2); Monocytes Percent Auto 6.1 % (2-11); Neutrophils Absolute Auto 3.7 x10*3/uL (2.0-8.3); Neutrophils Percent Auto 62.9 % (45-73); PLT CLUMP 1; Red Cell Distribution Width 18.5 % (11.0-16.0); SCAN SMEAR FLAG 1; White Blood Count 5.9 X10*3/uL (4.8-10.8)
[2022-12-28 08:16] LABS: VBG Base Excess 2.4 mmol/L; VBG HCO3 26 mmol/L (22-26); VBG pCO2 37 mmHg; VBG pH 7.44 (7.32-7.43); VBG pO2 53 mmHg
[2022-12-28 08:29] LABS: Alanine Aminotransferase 80 U/L (0-31); Albumin Level 3.1 g/dL (3.5-5.0); Alkaline Phosphatase 62 U/L (39-117); Anion Gap 13 (12-20); Aspartate Amino Transferase 45 U/L (5-31); Bilirubin Total 0.5 mg/dL (0.0-1.0); Blood Urea Nitrogen 14 mg/dL (9-16); Calcium 9.1 mg/dL (8.4-10.2); Carbon Dioxide 25 mmol/L (22-29); Chloride 108 mmol/L (96-108); Creatinine Clr Calc Pharmacy 42.1; Estimated Glomerular Filt Rate 50; Glucose Random 115 mg/dL (60-115); Magnesium 1.9 mg/dL (1.6-2.6); Phosphorus 3.2 mg/dL (2.7-4.5); Platelet Count 191 X10*3/uL (160-400); Potassium 4.8 mmol/L (3.3-5.1); Sodium 141 mmol/L (135-145); Total Protein 5.7 g/dL (6.5-8.0)
[2022-12-28 08:30] LABS: Mean Platelet Volume 9.9 fL (9.4-12.3); SLIDE REVIEW VERIFIED
[2022-12-28] MEDS: ondansetron HCL 4 MG/2 ML VIAL IVPUSH ×2 (08:43→13:56)
[2022-12-28] MEDS: Apixaban 2.5 MG TABLET PO ×2 (09:30→20:49)
[2022-12-28] MEDS: Acetaminophen 325 MG TABLET 650 MG PO ×2 (09:30→17:52)
[2022-12-28] MEDS: Omeprazole 40 MG CAPSULE.DR PO (09:30)
[2022-12-28] MEDS: Cyanocobalamin (Vitamin B-12) 1,000 MCG TABLET 1000 MCG PO (09:30)
[2022-12-28] MEDS: Mesalamine 250 MG CAPSULE.ER 1000 MG PO ×3 (09:30→20:48)
[2022-12-28] MEDS: Ketorolac Tromethamine 15 MG/ML VIAL IVPUSH ×3 (10:33→20:49)
--- NOTE | 2022-12-28 11:47 | PM.CCPN ---
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 , complicated surgical history with right nephroureterectomy, peritoneal sarcoma resection with right adrenalectomy, right colectomy with primary anastomosis, small-bowel resection with duodenal patch, and gastrojejunostomy 2018, admitted on 12/25/2022 with dyspnea and hypoxia and DM secondary to asthma exacerbation and treated with systemic glucocorticoids and nebulized bronchodilators with hospital course complicated by what appears to have been a respiratory arrest with bradycardia and hypoxia, possible asystoly with CPR initiated immediately and returned spontaneous circulation after 5 minutes/2 rounds with patient intubated during the CPR and transferred to intensive care unit the after. Post CPR patient following commands and requiring sedative drips. 2D echo normal. Extubated 12/27/2022. No events overnight. Critical Care Time (minutes): 0 Physical Exam Vital Signs: Vital Signs: Last Vital Signs Temp 97.4 F 12/28/22 08:00 Pulse 74 12/28/22 11:00 Resp 17 12/28/22 11:00 BP 157/76 H 12/28/22 11:00 Pulse Ox 97 12/28/22 11:00 O2 Del Method 12/28/22 11:00 O2 Flow Rate 2 12/28/22 06:00 FiO2 30 12/27/22 09:00 BMI result Body Mass Index 24.9 Const: General: no acute distress, alert and awake Eyes: Sclerae: sclerae normal EOM: EOMs intact bilaterally Neck: Neck: Yes no lymphadenopathy, Yes trachea midline and Yes supple Resp: Effort & Inspection: normal respiratory effort and no respiratory distress Auscultation: clear to auscultation bilaterally Cardio: Rate: regular rate Rhythm: regular rhythm Heart sounds: no gallops, no murmurs and no rubs GI: Palpation (GI): Soft to palpation and Other GI palpation findings present ( Nontender) Auscultation: normal bowel sounds Extrem: General: Yes no pedal edema, No clubbing and No cyanosis Objective Data Labs 12/28/22 08:05 12/28/22 08:05 Labs: Laboratory Results - last 24 hr 12/28/22 12/28/22 12/28/22 08:05 08:05 08:09 WBC 5.9 RBC 4.00 L Hgb 10.4 L Hct 33.2 L MCV 83.0 MCH 26.0 L MCHC 31.3 RDW 18.5 H Plt Count 191 D MPV 9.9 Immature Gran % (Auto) 0.5 H Neut % (Auto) 62.9 Lymph % (Auto) 18.2 L [place] % (Auto) 6.1 Eos % (Auto) 11.3 H Baso % (Auto) 1.0 Lymph # (Auto) 1.1 L [place] # (Auto) 0.4 Eos # (Auto) 0.7 H Baso # (Auto) 0.1 Abs Immat Gran (auto) 0.03 Absolute Neuts (auto) 3.7 Absolute Nucleated RBC 0.000 Nucleated RBC % (auto) 0.0 Smear Tech's Comments VERIFIED VBG pH 7.44 H VBG pCO2 37 VBG pO2 53 VBG HCO3 26 VBG O2 Saturation 77.0 VBG Base Excess 2.4 Sodium 141 Potassium 4.8 Chloride 108 Carbon Dioxide 25 Anion Gap 13 BUN 14 Creatinine 1.07 Estim Creat Clear Calc 42.1 Estimated GFR 50 Random Glucose 115 Calcium 9.1 Phosphorus 3.2 Magnesium 1.9 Total Bilirubin 0.5 AST 45 H ALT 80 H Alkaline Phosphatase 62 Total Protein 5.7 L Albumin 3.1 L Microbiology Microbiology Results: Microbiology 12/26/22 06:31 Blood - Venous Blood Culture - Preliminary No growth after 48 hours. 12/26/22 06:31 Blood - Venous Blood Culture - Preliminary No growth after 48 hours. 12/26/22 06:15 Urine Catheterized - Hyman Catheter Urine Culture - Final No growth. Progress Note: A&P Assessment and plan (1) Acute respiratory failure: Status: Acute (2) Respiratory arrest: Status: Acute (3) Asthma exacerbation: Status: Acute (4) History of DVT (deep vein thrombosis): Status: Acute Plan Assessment: 72-year-old lady with underlying complicated abdominal surgical history with asthma, DVT on anticoagulation admitted with hypoxia deemed to be secondary to asthma exacerbation with hospital course complicated by respiratory arrest, now on ventilatory support. Plan: Neuro: No acute issues. Cardiac: Possible respiratory arrest with returned spontaneous circulation after 5 minutes of CPR. 2D echocardiogram is normal. Pulmonary: Acute hypoxic respiratory failure with respiratory arrest now requiring ventilatory support. Extubated uneventfully on 12/27/2022. No clear etiology for the respiratory arrest is evident at this time, may have had an acute aspiration episode, now resolved. Renal: No acute issues. Endo: No acute issues. GI: No acute issues. ID: No evidence of sepsis, hypotension secondary to sedation Heme/Onc: No acute issues. Psych: No acute issues. Miscellaneous: Rib pain after CPR, now on Toradol. Prophylaxis: Eliquis Diet: Regular At this time patient is stable to be transferred to telemetry [facility]. Transfer discussed with Ermelinda Candelario N.P. Quality Stroke Does the patient have a stroke diagnosis?: No VTE Prior VTE?: No VTE Risk Level:: Medical - moderate - high VTE Device Contraindication: Treatment Not Indicated VTE Drug Contraindication: N/A - Med Ordered
--- NOTE | 2022-12-28 15:40 | MHC.CM.PN ---
Pt extubated and expected to transfer to [facility] later today for continued care. D/C plan remains for a return to home without services. CM to follow
[2022-12-28] MEDS: oxyCODONE HCl Immed Release 5 MG TABLET PO (21:59)
[2022-12-28] MEDS: diphenhydrAMINE HCL 25 MG CAPSULE PO (21:59)
[2022-12-29] VITALS (8 sets, daily range): BP systolic 154–181; BP diastolic 82–91; PULSE 75–88; RESP 14–20; TEMP 36.1–36.7; O2SAT 94–98; BMI 25.0
[2022-12-29] MEDS: Ketorolac Tromethamine 15 MG/ML VIAL IVPUSH ×2 (03:26→10:20)
[2022-12-29] MEDS: Omeprazole 40 MG CAPSULE.DR PO (05:08)
[2022-12-29 07:37] LABS: MANUAL DIFF FLAG NO
[2022-12-29 07:41] LABS: Venous Blood Gas Refer to POC result
[2022-12-29 07:42] LABS: Basophils Percent Auto 0.5 % (0-2); Eosinophils Absolute Auto 0.6 X10*3/uL (0.0-0.4); Eosinophils Percent Auto 14.6 % (0-4); Hematocrit 30.4 % (37.0-47.0); Hemoglobin 9.6 g/dl (12.0-16.0); Imm Gran Abs Auto 0.02 X10*3/uL (0.00-0.03); Imm Gran Pct Auto 0.5 % (0.0-0.4); Lymphocytes Absolute Auto 0.9 X10*3/uL (1.2-4.9); Lymphocytes Percent Auto 20.4 % (20-40); Mean Corpuscular HGB Conc 31.6 g/dl (31.0-35.0); Mean Corpuscular Hemoglobin 26.2 pg (27.0-33.0); Mean Corpuscular Volume 83.1 fL (80.0-98.0); Mean Platelet Volume 9.4 fL (9.4-12.3); Monocytes Absolute Auto 0.4 X10*3/uL (0.1-1.2); Monocytes Percent Auto 8.6 % (2-11); Neutrophils Absolute Auto 2.3 x10*3/uL (2.0-8.3); Neutrophils Percent Auto 55.4 % (45-73); Platelet Count 215 X10*3/uL (160-400); Red Blood Count 3.66 X10*6/uL (4.20-5.50); Red Cell Distribution Width 17.8 % (11.0-16.0); White Blood Count 4.2 X10*3/uL (4.8-10.8)
[2022-12-29 07:45] LABS: VBG HCO3 22 mmol/L (22-26); VBG pCO2 30 mmHg; VBG pH 7.47 (7.32-7.43); VBG pO2 112 mmHg
[2022-12-29 08:02] LABS: Anion Gap 11 (12-20); Blood Urea Nitrogen 20 mg/dL (9-16); Calcium 8.8 mg/dL (8.4-10.2); Carbon Dioxide 25 mmol/L (22-29); Chloride 109 mmol/L (96-108); Estimated Glomerular Filt Rate 49; Glucose Random 93 mg/dL (60-115); Magnesium 1.7 mg/dL (1.6-2.6); Phosphorus 3.2 mg/dL (2.7-4.5); Potassium 4.1 mmol/L (3.3-5.1); Sodium 141 mmol/L (135-145)
[2022-12-29] MEDS: Cyanocobalamin (Vitamin B-12) 1,000 MCG TABLET 1000 MCG PO (08:34)
[2022-12-29] MEDS: Apixaban 2.5 MG TABLET PO ×2 (08:34→20:15)
[2022-12-29] MEDS: Acetaminophen 325 MG TABLET 650 MG PO ×2 (08:34→18:09)
[2022-12-29] MEDS: Mesalamine 250 MG CAPSULE.ER 1000 MG PO ×3 (08:34→20:15)
[2022-12-29] MEDS: 0.9 % Sodium Chloride Flush 3 ML SYRINGE IVFLUSH ×3 (08:35→22:18)
[2022-12-29] MEDS: ondansetron HCL 4 MG/2 ML VIAL IVPUSH ×2 (08:38→13:40)
--- NOTE | 2022-12-29 12:06 | MHC.CM.PN ---
Discharge is anticipated tomorrow. Patient continues with pain r/t CPR. Per MD rounds, imaging will be ordered to assess for fx. DP home with family assist and transport.
--- NOTE | 2022-12-29 13:43 | PC.NURSE ---
pt c/o nausea that is still persist after a dose of Zofran at 0838. OLIVER Burden notified and ok to give another dose of Zofran early.
[2022-12-29] MEDS: oxyCODONE HCl Immed Release 5 MG TABLET PO ×2 (15:00→20:40)
--- NOTE | 2022-12-29 17:14 | P.PNIM_ITS ---
Subjective Subjective Date of Service: 12/29/22 Interval History: seen and examined this morning follow up for respiratory failure, cardiac arrest downgraded from ICU 12/28 reporting pain in ribs with deep breathing no shortness of breath Review of Systems Review of Systems: Yes all other systems are reviewed and are negative Constitutional Constitutional: Denies chills and Denies fever(s) Cardiovascular Cardiovascular: Denies chest pain, Denies palpitations and Denies dyspnea Respiratory Respiratory: Denies cough, Reports pain on inspiration, Reports pain with cough and Denies dyspnea Gastrointestinal Gastrointestinal: Denies abdominal pain Endocrine Endocrine: Denies palpitations Physical Exam Vital Signs: Vital Signs: Last Vital Signs Temp 97.3 F 12/29/22 16:00 Pulse 85 12/29/22 16:00 Resp 14 12/29/22 16:00 BP 158/88 H 12/29/22 16:00 Pulse Ox 94 12/29/22 16:00 O2 Del Method 12/29/22 16:00 O2 Flow Rate 2 12/28/22 17:40 FiO2 30 12/27/22 09:00 BMI result Body Mass Index 25.0 Const: General: cooperative, comfortable, no acute distress, alert and awake Nutritional Appearance: average body habitus Orientation/consciousness: patient oriented x3 Chest: Other: anterior chest wall tender to palpation, primarily right side Resp: Effort & Inspection: normal respiratory effort, able to speak in complete sentences, no respiratory distress and no use of accessory muscles GI: Inspection: No distended Palpation (GI): Soft to palpation Neuro: General: patient oriented x3 and CN's II-XI intact bilaterally Extrem: Other: able to move all 4 extremities spontaneously General: Yes no pedal edema Objective Data Active Medications Acetaminophen (Acetaminophen 325 Mg Tablet) 650 mg PO Q6H PRN PRN Reason: Pain, Mild (Pain Scale 1-3) Last Admin: 12/29/22 08:34 Dose: 650 mg Documented By: OSWALD Albuterol Sulfate (Albuterol Sulfate (0.083%) 2.5 Mg/3 Ml Vial.Neb) 2.5 mg INHALE Q2H PRN PRN Reason: Shortness of Breath/Wheezing Last Admin: 12/27/22 14:58 Dose: 2.5 mg Documented By: TESFAYE Apixaban (Apixaban 2.5 Mg Tablet) 2.5 mg PO BID BLANK Last Admin: 12/29/22 08:34 Dose: 2.5 mg Documented By: OSWALD Albuterol Sulfate 2.5 mg/ (Ipratropium [place] 0.5 mg) 0 mg INHALE RQ6H WHILE AWAKE [facility] Last Admin: 12/29/22 14:54 Dose: 3 each Documented By: GREGORY Cyanocobalamin (Cyanocobalamin (Vitamin B-12) 1,000 Mcg Tablet) 1,000 mcg PO DAILY [facility] Last Admin: 12/29/22 08:34 Dose: 1,000 mcg Documented By: OSWALD Guaifenesin/Dextromethorphan (Guaifenesin Dm 100/10/5 Ml 5 Ml Syrup) 5 ml PO Q6H PRN PRN Reason: Cough Mesalamine (Mesalamine 250 Mg Capsule.Er) 1,000 mg PO TID [facility] Last Admin: 12/29/22 15:00 Dose: 1,000 mg Documented By: OSWALD Non-Formulary Medication (Hyoscyamine Sulfate) 0.125 mg PO QID [facility] Omeprazole (Omeprazole 40 Mg Capsule.Dr) 40 mg PO DAILY@0630 [facility] Last Admin: 12/29/22 05:08 Dose: 40 mg Documented By: SILVIA Ondansetron HCl (Ondansetron Hcl 4 Mg/2 Ml Vial) 4 mg IVPUSH Q8H PRN PRN Reason: Nausea and Vomiting Last Admin: 12/29/22 13:40 Dose: 4 mg Documented By: OSWALD Oxycodone HCl (Oxycodone Hcl Immed Release 5 Mg Tablet) 5 mg PO Q6H PRN PRN Reason: Pain, Moderate (Pain Scale 4-6 Last Admin: 12/29/22 15:00 Dose: 5 mg Documented By: OSWALD Pharmacy Consult (Consult Rx Perform Med Rec) 1 each MISCELLANE ONCE PRN PRN Reason: Consult order Sodium Chloride (0.9 % Sodium Chloride Flush 3 Ml Syringe) 3 ml IVFLUSH QSHIFT [facility] Last Admin: 12/29/22 15:00 Dose: 3 ml Documented By: OSWALD Labs 12/29/22 07:34 12/29/22 07:34 Labs: Laboratory Results - last 24 hr 12/29/22 12/29/22 12/29/22 07:34 07:34 07:36 MCV 83.1 MCH 26.2 L MCHC 31.6 RDW 17.8 H Plt Count 215 MPV 9.4 Immature Gran % (Auto) 0.5 H Neut % (Auto) 55.4 Lymph % (Auto) 20.4 [place] % (Auto) 8.6 Eos % (Auto) 14.6 H Baso % (Auto) 0.5 Lymph # (Auto) 0.9 L [place] # (Auto) 0.4 Eos # (Auto) 0.6 H Baso # (Auto) 0.0 Abs Immat Gran (auto) 0.02 Absolute Neuts (auto) 2.3 Absolute Nucleated RBC 0.000 Nucleated RBC % (auto) 0.0 VBG pH 7.47 H VBG pCO2 30 VBG pO2 112 VBG HCO3 22 VBG O2 Saturation 99.0 VBG Base Excess TNP Anion Gap 11 L Estim Creat Clear Calc 41.0 Estimated GFR 49 Random Glucose 93 Calcium 8.8 Phosphorus 3.2 Magnesium 1.7 Albumin 3.0 L Assessment and Plan (1) Respiratory arrest: Status: Acute Plan This is a 72-year-old female with history of mild persistent asthma, chronic low back pain, GERD, history of DVT anticoagulated with Eliquis, hypercholesterolemia, hypertension, vitamin B12 deficient, vitamin-D deficiency, 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 She was extubated 12/27 and downgraded to medical floor 12/28. respiratory arrest unclear what precipitated event, possible aspiration episode currently saturating on room air having rib pain post CPR - imaging negative for fracture continue symptomatic treatment, prn breathing treatments echo with no wma atrial fibrillation ekg showing afib - pt denies history afib echo unremarkable on dvt ppx for DVT cardiology consult h/o DVT continue eliquis dvt ppx - eliquis code status - full code attending - dr. jimenez Time Spent With Patient Time: Total time managing care of this patient today ____ minutes. Quality Stroke Does the patient have a stroke diagnosis?: No VTE Prior VTE?: No VTE Risk Level:: Medical - moderate - high VTE Device Contraindication: Treatment Not Indicated VTE Drug Contraindication: N/A - Med Ordered
[2022-12-29] MEDS: Famotidine 20 MG TABLET PO (20:15)
[2022-12-29] MEDS: Zolpidem Tartrate 5 MG TABLET PO (22:18)
[2022-12-30] VITALS (9 sets, daily range): BP systolic 150–178; BP diastolic 70–94; PULSE 74–94; RESP 16–20; TEMP 36.2–37.1; O2SAT 95–98; BMI 23.7
[2022-12-30] MEDS: guaiFENesin DM 100/10/5 ML 5 ML SYRUP PO ×3 (00:12→18:03)
[2022-12-30] MEDS: oxyCODONE HCl Immed Release 5 MG TABLET PO ×2 (02:43→08:23)
[2022-12-30] MEDS: Omeprazole 40 MG CAPSULE.DR PO (05:11)
[2022-12-30] MEDS: Prochlorperazine Maleate 5 MG TABLET PO ×2 (08:23→16:45)
[2022-12-30] MEDS: Apixaban 2.5 MG TABLET PO (08:23)
[2022-12-30] MEDS: Cyanocobalamin (Vitamin B-12) 1,000 MCG TABLET 1000 MCG PO (08:24)
[2022-12-30] MEDS: DULoxetine HCl 60 MG CAPSULE.DR PO (08:24)
[2022-12-30] MEDS: 0.9 % Sodium Chloride Flush 3 ML SYRINGE IVFLUSH ×3 (08:24→20:04)
[2022-12-30] MEDS: Mesalamine 250 MG CAPSULE.ER 1000 MG PO ×3 (08:24→21:43)
[2022-12-30] MEDS: predniSONE 20 MG TABLET 40 MG PO (09:59)
[2022-12-30] MEDS: Acetaminophen 325 MG TABLET 650 MG PO ×2 (10:02→18:03)
--- NOTE | 2022-12-30 10:43 | PM.CNCAR ---
History of Present Illness History of Present Illness Date of Service: 12/30/22 Chief complaint: sob, wheezing Narrative: This is a cardiology consultation regarding question of cardiac arrest. Patient states she never had any cardiac issues before. No history of any coronary disease, myocardial infarction or cardiomyopathy or anything else. She has had apparently some heart racing type sensations at different times. She has had some palpitations type symptoms in the past apparently or some Holter is but nothing recently. Any case, it seems that she actually came for shortness of breath and wheezing from suspected asthma. She does have a history of asthma but no episodes in almost 40 years. For the last few weeks, she had been having these symptoms and that led to the presentation. While in the hospital, she apparently had a respiratory arrest leading to possible asystole but the actual rhythm is not clear to me. Upon discussion with nailhead operator Dr. Martínez, there was no overt cardiac issues at the time of the rest and it was more than likely respiratory in nature. She was initially in ICU for a couple of days and then, recovered completely and then sent to the floor. Currently she has no clear cardiac symptoms. We were asked to see her for further assessment. Review of Systems Review of Systems: Yes all other systems are reviewed and are negative Constitutional: Constitutional: Reports as per HPI and Reports no additional constitutional complaints Eyes: Eyes: Reports as per HPI and Denies no additional eye complaints ENT: Denies system reviewed and no additional complaints, except as documented and Reports as per HPI Cardiovascular: Cardiovascular: Reports as per HPI, Reports no additional cardiovascular complaints, Denies acrocyanosis, Denies cool extremities, Denies chest pain, Denies leg edema, Denies lightheadedness, Denies palpitations and Denies dyspnea Respiratory: Respiratory: Reports as per HPI, Denies no additional respiratory complaints and Denies dyspnea Gastrointestinal: Gastrointestinal: Reports as per HPI and Denies no additional gastrointestinal complaints Genitourinary: Genitourinary: Reports as per HPI Musculoskeletal: Musculoskeletal: Reports no additional musculoskeletal complaints and Reports as per HPI Integumentary/Breasts: Skin/Breast: Reports system reviewed and no additional complaints, except as docu Neurologic: Reports system reviewed and no additional complaints, except as documented and Reports as per HPI Psychiatric: Psychiatric: Reports no additional psychiatric complaints and Reports as per HPI Endocrine: Endocrine: Reports no additional endocrine complaints, Reports as per HPI and Denies palpitations Hematologic/Lymphatic: Hematologic/Lymphatic: Reports no additional hematologic/lymphatic complaints and Reports as per HPI Allergic/Immunologic: Allergic/Immunologic: Reports no additional allergic/immunologic complaints and Reports as per HPI [facility] Past Medical History Medical History (Updated 12/30/22 @ 10:47 by Jovani Sorto MD) Asthma Chronic low back pain Colon cancer screening GERD (gastroesophageal reflux disease) History of DVT (deep vein thrombosis) Hypercholesterolemia Hypertension Insomnia Polyarthralgia Radicular low back pain Scalp mass Secondary malignant neoplasm of retroperitoneum and peritoneum Tubular adenoma of colon Vitamin B12 deficiency Vitamin D deficiency Family History Family History Father Myocardial infarction CVD (cardiovascular disease) Mother CVD (cardiovascular disease) Stroke Brother Myocardial infarction CVD (cardiovascular disease) Surgical History Surgical History History of back surgery History of section History of colonoscopy History of excision of mass (~01/11/22) History of nephroureterectomy History of tonsillectomy History of tubal ligation Hx of endoscopy Retroperitoneal liposarcoma Social History Social History Household Members: Spouse and Family Housing: House Do you presently have visiting nurse or other home services: No Alcohol intake: never Patient Tobacco Use Status: Never used Tobacco e-Cigarette/Vaping Use: Never Used Second Hand Smoke Exposure: No Substance Use Type: Marijuana and Other service: No Current occupational status: retired Cognitive needs: No Hearing needs: No Vision needs: Yes Meds Allergies Allergy/AdvReac Type Severity Reaction Status Date / Time lisinopril [LISINOPRIL] Allergy Intermediate COUGH, Verified 12/25/22 11:08 constant cough simvastatin [SIMVASTATIN] Allergy Mild Confusion Verified 12/25/22 11:08 Active Medications: Current Medications Acetaminophen (Acetaminophen 325 Mg Tablet) 650 mg PO Q6H PRN PRN Reason: Pain, Mild (Pain Scale 1-3) Last Admin: 12/30/22 10:02 Dose: 650 mg Albuterol Sulfate (Albuterol Sulfate (0.083%) 2.5 Mg/3 Ml Vial.Neb) 2.5 mg INHALE Q2H PRN PRN Reason: Shortness of Breath/Wheezing Last Admin: 12/27/22 14:58 Dose: 2.5 mg Apixaban (Apixaban 2.5 Mg Tablet) 2.5 mg PO BID [facility] Last Admin: 12/30/22 08:23 Dose: 2.5 mg Albuterol Sulfate 2.5 mg/ (Ipratropium [place] 0.5 mg) 0 mg INHALE RQ6H WHILE AWAKE [facility] Last Admin: 12/30/22 07:53 Dose: 2.5 each Cyanocobalamin (Cyanocobalamin (Vitamin B-12) 1,000 Mcg Tablet) 1,000 mcg PO DAILY [facility] Last Admin: 12/30/22 08:24 Dose: 1,000 mcg Duloxetine HCl (Duloxetine Hcl 60 Mg Capsule.) 60 mg PO DAILY [facility] Last Admin: 12/30/22 08:24 Dose: 60 mg Famotidine (Famotidine 20 Mg Tablet) 20 mg PO BEDTIME [facility] Last Admin: 12/29/22 20:15 Dose: 20 mg Guaifenesin/Dextromethorphan (Guaifenesin Dm 100/10/5 Ml 5 Ml Syrup) 5 ml PO Q6H PRN PRN Reason: Cough Last Admin: 12/30/22 08:23 Dose: 5 ml Hydromorphone HCl (Hydromorphone Hcl 2 Mg Tablet) 2 mg PO Q4H PRN PRN Reason: Pain, Moderate (Pain Scale 4-6 Mesalamine (Mesalamine 250 Mg Capsule.Er) 1,000 mg PO TID [facility] Last Admin: 12/30/22 08:24 Dose: 1,000 mg Non-Formulary Medication (Hyoscyamine Sulfate) 0.125 mg PO QID [facility] Omeprazole (Omeprazole 40 Mg Capsule.) 40 mg PO DAILY@0630 [facility] Last Admin: 12/30/22 05:11 Dose: 40 mg Pharmacy Consult (Consult Rx Perform Med Rec) 1 each MISCELLANE ONCE PRN PRN Reason: Consult order Prednisone (Prednisone 20 Mg Tablet) 40 mg PO DAILY [facility] Last Admin: 12/30/22 09:59 Dose: 40 mg Prochlorperazine Maleate (Prochlorperazine Maleate 5 Mg Tablet) 5 mg PO TID PRN PRN Reason: Nausea Last Admin: 12/30/22 08:23 Dose: 5 mg Sodium Chloride (0.9 % Sodium Chloride Flush 3 Ml Syringe) 3 ml IVFLUSH QSHIFT BLANK Last Admin: 12/30/22 08:24 Dose: 3 ml Home Medications Medication Instructions Recorded Confirmed Last Taken Type cyanocobalamin (vitamin B-12) 1,000 mcg PO DAILY 08/12/20 12/25/22 12/24/22 History 1,000 mcg capsule apixaban 2.5 mg tablet (Eliquis) 2.5 mg PO BID 07/12/21 12/25/22 12/24/22 History THC oral drop PO .QHS 08/11/21 05/29/22 Unknown History hydromorphone 2 mg tablet 4 mg PO Q4H PRN Pain 04/10/22 12/25/22 12/25/22 08:00 History (Dilaudid) 2 mg topiramate 50 mg tablet 50 mg PO DAILY PRN LAU 05/29/22 12/25/22 Unknown History albuterol sulfate 90 mcg/actuation 2 puff PO Q4H PRN Respiratory 12/25/22 12/25/22 Unknown History aerosol inhaler Distress Physical Exam Vital Signs: Vital Signs: Last Vital Signs Temp 97.1 F 12/30/22 07:41 Pulse 83 12/30/22 07:54 Resp 18 12/30/22 07:54 BP 178/94 H 12/30/22 07:41 Pulse Ox 97 12/30/22 07:41 O2 Del Method 12/30/22 07:41 O2 Flow Rate 2 12/28/22 17:40 FiO2 30 12/27/22 09:00 BMI result Body Mass Index 23.7 Const: General: comfortable and no acute distress Orientation/consciousness: patient oriented x3 HEENT: Other: Unremarkable Head: Yes normal to inspection Neck: Neck: Yes normal visual inspection Chest: Chest palpation & inspection: normal inspection of the chest Resp: Auscultation: rhonchi Cardio: Palpation: normal PMI Heart sounds: S1 normal heart sound present, S2 normal heart sound present, no gallops, no murmurs and no rubs GI: Palpation (GI): Soft to palpation Back/Spine/Pelvis: Other: unremarkable Skin: General skin exam: no rashes or lesions noted Neuro: General: patient oriented x3 Extrem: General: Yes normal to inspection Psych: Mental Status: mental status grossly normal Objective Labs and Meds 12/29/22 07:34 12/29/22 07:34 ECG Interpretation: EKG from shows atrial fibrillation at a rate of 134/Min. Lateral ST depression. PVCs. Imaging Radiologist's impression: Impressions Ribs w/Chest X-Ray 12/29/22 14:33 IMPRESSION: Unremarkable examination. Assessment and Plan (1) Respiratory arrest: Status: Acute (2) Acute respiratory failure: Status: Acute (3) Atrial fibrillation with rapid ventricular response: Status: Acute Plan High sensitivity troponin is 14. Cardiac BNP 150, 105. Echocardiogram with hyperdynamic LVEF. Mildly decreased RV function. Mild mitral annular calcification but otherwise unremarkable. On the morning of , telemetry suggestive of atrial fibrillation but only for a few minutes. Overall, the arrest seems to be rather respiratory nature based on discussion with nailhead operator. Does not appear that she had any ventricular tachycardia or fibrillation. Troponin is unremarkable. Echocardiogram showing preserved LVEF. Atrial fibrillation itself is fairly brief and last only a few minutes around the time of the arrest. Any case, she is already on anticoagulation for DVT. As the blood pressure is also high, start her on some diltiazem. Will arrange outpatient 30 day monitor. Follow-up will be arranged. Discussed with Jenise Li. Time Spent With Patient Time: Total time managing care of this patient today 77 minutes. Procedures Date of Service Date of Service: 12/30/22
[2022-12-30] MEDS: dilTIAZem HCL CD 120 MG CAP.ER.DEG PO (11:09)
--- NOTE | 2022-12-30 11:33 | P.PNIM_ITS ---
Subjective Subjective Date of Service: 12/30/22 Interval History: seen and examined this morning follow up for respiratory arrest having chest wall pain, no significant sob no palpitations reports chronic abdominal pain/nausea - longstanding since multiple abdominal surgeries Review of Systems Review of Systems: Yes all other systems are reviewed and are negative Constitutional Constitutional: Denies chills and Denies fever(s) Cardiovascular Cardiovascular: Denies chest pain, Denies palpitations and Denies dyspnea Respiratory Respiratory: Denies cough and Denies dyspnea Gastrointestinal Gastrointestinal: Denies diarrhea and Denies vomiting Endocrine Endocrine: Denies palpitations Physical Exam Vital Signs: Vital Signs: Last Vital Signs Temp 98.3 F 12/30/22 11:12 Pulse 74 12/30/22 11:12 Resp 19 12/30/22 11:12 BP 167/86 H 12/30/22 11:12 Pulse Ox 95 12/30/22 11:12 O2 Del Method 12/30/22 11:12 O2 Flow Rate 2 12/28/22 17:40 FiO2 30 12/27/22 09:00 BMI result Body Mass Index 23.7 Const: General: cooperative, comfortable, no acute distress, alert and awake Nutritional Appearance: average body habitus Orientation/consciousness: patient oriented x3 Chest: Other: anterior chest wall tender to palpation, primarily right side Resp: Other: b/l wheezing Effort & Inspection: normal respiratory effort, able to speak in complete sentences, no respiratory distress and no use of accessory muscles GI: Inspection: No distended Palpation (GI): Soft to palpation Neuro: General: patient oriented x3 and CN's II-XI intact bilaterally Extrem: Other: able to move all 4 extremities spontaneously General: Yes no pedal edema Objective Data Active Medications Acetaminophen (Acetaminophen 325 Mg Tablet) 650 mg PO Q6H PRN PRN Reason: Pain, Mild (Pain Scale 1-3) Last Admin: 12/30/22 10:02 Dose: 650 mg Documented By: CORDELL Albuterol Sulfate (Albuterol Sulfate (0.083%) 2.5 Mg/3 Ml Vial.Neb) 2.5 mg INHALE Q2H PRN PRN Reason: Shortness of Breath/Wheezing Last Admin: 12/27/22 14:58 Dose: 2.5 mg Documented By: TESFAYE Apixaban (Apixaban 2.5 Mg Tablet) 2.5 mg PO BID [facility] Last Admin: 12/30/22 08:23 Dose: 2.5 mg Documented By: CORDELL Albuterol Sulfate 2.5 mg/ (Ipratropium [place] 0.5 mg) 0 mg INHALE RQ6H WHILE AWAKE [facility] Last Admin: 12/30/22 07:53 Dose: 2.5 each Documented By: TESFAYE Cyanocobalamin (Cyanocobalamin (Vitamin B-12) 1,000 Mcg Tablet) 1,000 mcg PO DAILY [facility] Last Admin: 12/30/22 08:24 Dose: 1,000 mcg Documented By: CORDELL Diltiazem HCl (Diltiazem Hcl Cd 120 Mg Cap.Er.Deg) 120 mg PO DAILY [facility]; Prot ocol Last Admin: 12/30/22 11:09 Dose: 120 mg Documented By: MADISON Duloxetine HCl (Duloxetine Hcl 60 Mg Capsule.) 60 mg PO DAILY [facility] Last Admin: 12/30/22 08:24 Dose: 60 mg Documented By: CORDELL Famotidine (Famotidine 20 Mg Tablet) 20 mg PO BEDTIME [facility] Last Admin: 12/29/22 20:15 Dose: 20 mg Documented By: DEVEN Guaifenesin/Dextromethorphan (Guaifenesin Dm 100/10/5 Ml 5 Ml Syrup) 5 ml PO Q6H PRN PRN Reason: Cough Last Admin: 12/30/22 08:23 Dose: 5 ml Documented By: CORDELL Hydromorphone HCl (Hydromorphone Hcl 2 Mg Tablet) 2 mg PO Q4H PRN PRN Reason: Pain, Moderate (Pain Scale 4-6 Mesalamine (Mesalamine 250 Mg Capsule.Er) 1,000 mg PO TID [facility] Last Admin: 12/30/22 08:24 Dose: 1,000 mg Documented By: CORDELL Non-Formulary Medication (Hyoscyamine Sulfate) 0.125 mg PO QID [facility] Omeprazole (Omeprazole 40 Mg Capsule.) 40 mg PO DAILY@0630 [facility] Last Admin: 12/30/22 05:11 Dose: 40 mg Documented By: DEVEN Pharmacy Consult (Consult Rx Perform Med Rec) 1 each MISCELLANE ONCE PRN PRN Reason: Consult order Prednisone (Prednisone 20 Mg Tablet) 40 mg PO DAILY [facility] Last Admin: 12/30/22 09:59 Dose: 40 mg Documented By: CORDELL Prochlorperazine Maleate (Prochlorperazine Maleate 5 Mg Tablet) 5 mg PO TID PRN PRN Reason: Nausea Last Admin: 12/30/22 08:23 Dose: 5 mg Documented By: CORDELL Sodium Chloride (0.9 % Sodium Chloride Flush 3 Ml Syringe) 3 ml IVFLUSH QSHIFT [facility] Last Admin: 12/30/22 08:24 Dose: 3 ml Documented By: CORDELL Labs 12/29/22 07:34 12/29/22 07:34 Assessment and Plan (1) Atrial fibrillation with rapid ventricular response: Status: Acute (2) Respiratory arrest: Status: Acute Plan This is a 72-year-old female with history of mild persistent asthma, chronic low back pain, GERD, history of DVT anticoagulated with Eliquis, hypercholesterolemia, hypertension, vitamin B12 deficient, vitamin-D deficiency, 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 She was extubated 12/27 and downgraded to medical floor 12/28. acute asthma exacerbation continue breathing treatments resume prednisone respiratory arrest unclear what precipitated event, possible aspiration episode currently saturating on room air having rib pain post CPR - imaging negative for fracture continue symptomatic treatment, prn breathing treatments echo with no wma seen by cardiology -no obvious cardiac pathology. rec outpatient building associate atrial fibrillation ekg showing afib - pt denies history of afib no further episodes of afib echo unremarkable on dvt ppx for DVT, but only 2.5 bid seen by cardiology, rec to increase to full dose eliquis and start cardizem daily chronic abdominal pain/nausea resume compazine titrate up pain medication back to baseline dose h/o DVT continue eliquis dvt ppx - eliquis code status - full code attending - Dr. Kenny requires ongoing inpatient hospitalization for close monitoring of respiratory status Time Spent With Patient Time: Total time managing care of this patient today ____ minutes. Quality Stroke Does the patient have a stroke diagnosis?: No VTE Prior VTE?: No VTE Risk Level:: Medical - moderate - high VTE Device Contraindication: Treatment Not Indicated VTE Drug Contraindication: N/A - Med Ordered
[2022-12-30] MEDS: HYDROmorphone HCl 2 MG TABLET PO ×3 (13:37→21:43)
[2022-12-30] MEDS: Apixaban 5 MG TABLET PO (20:01)
[2022-12-30] MEDS: Famotidine 20 MG TABLET PO (20:01)
[2022-12-30] MEDS: Zolpidem Tartrate 5 MG TABLET PO (22:58)
[2022-12-31] MEDS: HYDROmorphone HCl 2 MG TABLET PO ×3 (01:59→12:59)
[2022-12-31 02:13] VITALS: PULSE 82; RESP 24; O2SAT 96
[2022-12-31 04:00] VITALS: BP 159/87; PULSE 72; RESP 20; TEMP 36.8; O2SAT 96
[2022-12-31] MEDS: Omeprazole 40 MG CAPSULE.DR PO (05:40)
[2022-12-31 06:00] VITALS: BMI 24.0
[2022-12-31] MEDS: 0.9 % Sodium Chloride Flush 3 ML SYRINGE IVFLUSH (07:26)
[2022-12-31] MEDS: predniSONE 20 MG TABLET 40 MG PO (07:27)
[2022-12-31] MEDS: Mesalamine 250 MG CAPSULE.ER 1000 MG PO (07:27)
[2022-12-31] MEDS: Apixaban 5 MG TABLET PO (07:27)
[2022-12-31] MEDS: guaiFENesin DM 100/10/5 ML 5 ML SYRUP PO (07:27)
[2022-12-31] MEDS: dilTIAZem HCL CD 120 MG CAP.ER.DEG PO (07:28)
[2022-12-31] MEDS: DULoxetine HCl 60 MG CAPSULE.DR PO (07:28)
[2022-12-31] MEDS: Prochlorperazine Maleate 5 MG TABLET PO (07:28)
[2022-12-31] MEDS: Cyanocobalamin (Vitamin B-12) 1,000 MCG TABLET 1000 MCG PO (07:28)
[2022-12-31 07:44] VITALS: BP 160/80; PULSE 66; RESP 20; TEMP 36.7; O2SAT 96
--- NOTE | 2022-12-31 10:28 | P.DS_ITS ---
DS: Providers Provider Date of Service: 12/31/22 Date of admission: 12/25/22 16:22 Date of discharge: 12/31/22 Primary care physician: Chiara Diggs MD Consults: 12/29/22 13:27 Consult to Cardiology Routine Consulting Provider: Jovani Sorto Reason for consultation: cardiac arrest, aifb Has provider been notified: No Attending physician on discharge: Lebron Edmond Discharging clinician: Jenise Li DS: Diagnosis Discharge Diagnosis (1) Atrial fibrillation with rapid ventricular response: Status: Acute (2) Respiratory arrest: Status: Acute DS: Summary Hospital Course Hospital Course: From H&P on day of admission 72-year-old female with history of mild persistent asthma, chronic low back pain, GERD, history of DVT anticoagulated with Eliquis, hypercholesterolemia, hypertension, vitamin B12 deficient, vitamin-D deficiency, 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 She states she has a remote history of asthma, but symptoms recurred after developing a productive cough with yellow sputum production about 1 month ago and her PCP prescribed her an albuterol inhaler. The cough persists as well. Does also endorse pleuritic chest pain. No sick contacts. Denies fevers, chills, n/v/d, abd pain, chest pressure. On arrival, with patient slightly tachypneic at 26, vitals otherwise normal without hypoxia.? However with ambulation patient noted to desaturate into the 80s.? No leukocytosis.? Mild normocytic anemia with H/H 11.0/34.9%, mild eosinophilia 0.6x10^3.? Renal function normal, electrolytes normal except for CO2 of 19.? Glucose 171.? Negative for COVID-19, influenza.? CXR negative for any acute cardiopulmonary disease.? In the ED, given 2 g magnesium sulfate, 8 mg IV methylprednisolone and albuterol. Respiratory/cardiac arrest: Claude was admitted to the hospital for acute asthma exacerbation. She was started on systemic steroids and breathing treatments and transferred to the medical floor for further management. The morning after admission she was seen going to the bathroom and then she walking back to bed, suddenly called out for help and was noted to have labored breathing. She then became pale, cyanotic and hypoxic with O2 sats at 40s. She lost consciousness, code blue was called, CPR was initiated, ROSC achieved, she was intubated during CPR and transferred to the ICU. She was extubated 12/27 and downgraded to the medical floor on 12/28. She continued to have wheezing and systemic steroids were reintroduced as well as p.r.n. breathing treatments. She had no further hypoxia or shortness of breath. She was evaluated by Cardiology and there is no clear evidence of cardiac cause to her cardiac arrest, likely respiratory In nature. She was noted to have atrial fibrillation with rapid ventricular response following cardiac arrest which lasted a few minutes. She is already anticoagulated with Eliquis due to history of DVT, Cardiology recommended increasing dose to full dose 5 mg b.i.d. and start Cardizem. 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 Patient having musculoskeletal chest pain likely related to CPR, imaging negative for acute fracture. Recommend outpatient follow-up with PCP to ensure resolution of respiratory symptoms, follow mild anemia, mild transaminitis (LFTs have been trending down). continued on baseline medications, will be discharged with burst of oral prednisone. She reported some vision changes present since ICU stay, brain CT obtained was negative. recommend outpatient eye evaluation. She has been stable on room air since ICU downgrade with no shortness of breath and is eager to return home. Time Spent with Patient Time attestation: Total time managing care of this patient today ____ minutes. Discharge coordination time: Greater than 30 minutes Quality: Safe Use of Opioids Does Pt have an Active Cancer Diagnosis on the Problem List?: No Quality: Stroke Does the patient have a stroke diagnosis?: No Physical Exam Vital Signs: Vital Signs: Last Vital Signs Temp 98.0 F 12/31/22 07:44 Pulse 66 12/31/22 07:44 Resp 20 12/31/22 07:44 BP 160/80 H 12/31/22 07:44 Pulse Ox 96 12/31/22 07:44 O2 Del Method 12/31/22 07:44 O2 Flow Rate 2 12/28/22 17:40 FiO2 30 12/27/22 09:00 BMI result Body Mass Index 24.0 Const: General: cooperative, comfortable, no acute distress, alert and awake Nutritional Appearance: average body habitus Orientation/consciousness: patient oriented x3 Resp: Effort & Inspection: normal respiratory effort, able to speak in complete sentences, no respiratory distress and no use of accessory muscles Auscultation: clear to auscultation bilaterally Cardio: Rate: regular rate Heart sounds: S1 normal heart sound present and S2 normal heart sound present GI: Inspection: No distended Palpation (GI): Soft to palpation, nontender and no guarding Neuro: General: patient oriented x3 and CN's II-XI intact bilaterally Extrem: General: No no pedal edema Discharge Plan Discharge Anticipated Discharge Date/Time: 12/31/22 14:00 Patient Disposition: Home, Self-Care Discharge Diagnosis: respiratory arrest acute asthma exacerbation Referrals: Chiara Diggs MD [Primary Care Provider] - 1 Week Jovani Sorto MD [Physician] - 1 Week Discharge Medications: New Eliquis 5 mg Tablet 5 mg PO BID 30 Days Qty: 60 0RF diltiazem HCl [Cardizem CD] 120 mg Capsule,Extended Release 24hr 120 mg PO DAILY 30 Days Qty: 30 0RF Protocol: Hold for SBP/HR < HOLD for SBP < : 90 HOLD for HR < : 60 prednisone 20 mg tablet 40 mg PO DAILY 3 Days Qty: 6 0RF Continued cholecalciferol (vitamin D3) 50 mcg (2,000 unit) capsule 50 mcg PO DAILY Qty: 90 3RF duloxetine 60 mg capsule,delayed release(DR/EC) 60 mg PO DAILY 30 Days Qty: 90 3RF cyclobenzaprine 10 mg tablet 10 mg PO BID PRN (Reason: for muscle spasm) Qty: 60 4RF omeprazole 40 mg capsule,delayed release(DR/EC) 40 mg PO DAILY Qty: 90 1RF montelukast [Singulair] 10 mg tablet 10 mg PO DAILY Qty: 90 3RF hyoscyamine sulfate 0.125 mg tablet,disintegrating 0.125 mg PO QID Qty: 120 1RF mesalamine 500 mg capsule, extended release 1,000 mg PO TID Qty: 240 0RF prochlorperazine maleate 5 mg tablet 5 mg PO TID PRN (Reason: nausea and vomiting) Qty: 30 1RF albuterol sulfate 1.25 mg/3 mL solution for nebulization See Rx Instructions .ROUTE .COMPLEX Qty: 75 0RF Dose Instruction: INHALE 2 VIALS (6ML) VIA NEBULIZER 4 TIMES A DAY NEEDED FOR WHEEZE/SHORTNESS OF BREATH Rx Instructions: INHALE 2 VIALS (6ML) VIA NEBULIZER 4 TIMES A DAY NEEDED FOR WHEEZE/SHORTNESS OF BREATH albuterol sulfate 90 mcg/actuation HFA aerosol inhaler 2 puff PO Q4H PRN (Reason: Respiratory Distress) cyanocobalamin (vitamin B-12) 1,000 mcg capsule 1,000 mcg PO DAILY THC oral drop PO .QHS Rx Instructions: 8 drops topiramate 50 mg tablet 50 mg PO DAILY PRN (Reason: LAU) famotidine 20 mg tablet 20 mg PO BEDTIME 90 Days Qty: 90 1RF zolpidem 10 mg tablet 10 mg PO BEDTIME PRN (Reason: insomnia) 90 Days Qty: 90 1RF hydromorphone [Dilaudid] 2 mg tablet 4 mg PO Q4H PRN (Reason: Pain) Discontinued Eliquis 2.5 mg tablet 2.5 mg PO BID No Action (DME) nebulizers [Aeroneb Go Nebulizer] Misc See Rx Instructions .Route Qty: 1 0RF Rx Instructions: As directed updraft treatment every 4 hours p.r.n. Discharge Orders: Discharge Order (Routine); Ordered 12/31/22 Ordered By: Jenise Li Diet: Advance to usual diet Activity on Discharge: As tolerated Stand Alone Forms: Patient Portal Discharge page Care Plan Goals: resolution of respiratory symptoms Health Concerns: asthma exacerbation/URI respiratory/cardiac arrest atrial fibrillation chronic pain anemia Plan of Treatment: for Atrial fibrillation your dose of Eliquis has been increased to 5 mg twice daily. Please take as prescribed. 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
[2022-12-31 11:22] VITALS: BP 155/83; PULSE 76; RESP 20; TEMP 36.3; O2SAT 96
--- NOTE | 2022-12-31 14:03 | MHC.CM.PN ---
Patient has been medically cleared for dc to home today, self care. IMM to be addressed.
== END 2022-12-31 15:04 | disposition home or self-care (01) | DRG 208 ==
LOC: HO.ED 15:51 → HO.S3 17:36 → HO.ICU 12-26 06:54 → HO.IMC 12-31 10:28 → HO.EDOVER 02-27 07:58 → HO.ICU 02-27 07:58 → HO.S3 02-27 07:58 → HO.ICU 02-27 07:59 → HO.IMC 02-27 07:59
PROVIDERS: Hospitalist; Internal Medicine Pulmonary Disease; Physician Assistant; Registered Nurse Community Health; Admitting Provider Physician Assistant; Emergency Provider Emergency Medicine; PCP Internal Medicine; Visit Provider Physician Assistant Medical
DX: J45.31 Mild persistent asthma with (acute) exacerbation (principal); I46.9 Cardiac arrest, cause unspecified; J96.01 Acute respiratory failure with hypoxia; K21.9 Gastro-esophageal reflux disease without esophagitis; G89.28 Other chronic postprocedural pain; E78.00 Pure hypercholesterolemia, unspecified; Z20.822 Contact with and (suspected) exposure to COVID-19; Z85.831 Personal history of malignant neoplasm of soft tissue; Z86.718 Personal history of other venous thrombosis and embolism; Z88.8 Allergy status to other drugs, medicaments and biological substances; Z79.899 Other long term (current) drug therapy
CPT/HCPCS: 36415; 70450; 71045; 71046; 71111; 80048; 80053; 80076; 80307; 81001; 81003; 82040; 82803; 82947; 83605; 83735; 83880; 84100; 84484; 85025; 87040; 87086; 87502; 87635; 93005; 93306; 94002; 94003; 94640; 99223; 99285; C1758; J0295; J1885; J2270; J2370; J2405; J2920; J2930; J3010; J3475

== ENCOUNTER → 2023-01-04 14:03 | Outpatient (REF) | payer MEDICARE, BC, SELFPAY ==
--- NOTE | 2023-01-04 14:06 | HM_ITS ---
* Total monitoring time 30 days. Wear time, 4.5 days. Compliance 20%. * Monitoring time from 01/04/2023 to 01/25/2023. * Underlying rhythm is normal sinus rhythm. * Average ventricular rate 63/Min. Range 50 to 117/Min. * Low burden of supraventricular and ventricular ectopy. * No sustained arrhythmias. * Patient activated the symptom button several times. Reported 1 symptom. One recording of irregular heartbeat correlate with sinus rhythm. MTDD
== END ==
LOC: HO.CARD 14:03
PROVIDERS: PCP Internal Medicine; Visit Provider Internal Medicine
DX: I48.91 Unspecified atrial fibrillation (principal); I48.92 Unspecified atrial flutter
CPT/HCPCS: 93270

== ENCOUNTER → 2023-03-01 14:06 | Outpatient (BNVA) | payer MEDICARE, BC, SELFPAY | PROVIDERS: PCP Internal Medicine; Referring Provider Internal Medicine; Visit Provider Internal Medicine | DX: I46.9 Cardiac arrest, cause unspecified (principal); I48.0 Paroxysmal atrial fibrillation; Z86.718 Personal history of other venous thrombosis and embolism; Z79.01 Long term (current) use of anticoagulants | CPT/HCPCS: 99212 ==

== ENCOUNTER 2023-03-09 10:06 | Outpatient (REF) | payer MEDICARE, BC, SELFPAY ==
[2023-03-09 10:54] LABS: Basophils Absolute Auto 0.1 X10*3/uL (0.0-0.2); Basophils Percent Auto 0.9 % (0-2); Eosinophils Absolute Auto 0.9 X10*3/uL (0.0-0.4); Eosinophils Percent Auto 9.6 % (0-4); Hematocrit 35.5 % (37.0-47.0); Imm Gran Abs Auto 0.03 X10*3/uL (0.00-0.03); Imm Gran Pct Auto 0.3 % (0.0-0.4); Immature Retic Fraction 18.8 % (3.0-15.9); Lymphocytes Absolute Auto 1.3 X10*3/uL (1.2-4.9); Lymphocytes Percent Auto 14.2 % (20-40); MANUAL DIFF FLAG SCAN; Mean Corpuscular Hemoglobin 24.9 pg (27.0-33.0); Mean Corpuscular Volume 80.5 fL (80.0-98.0); Mean Platelet Volume 9.1 fL (9.4-12.3); Monocytes Absolute Auto 0.5 X10*3/uL (0.1-1.2); Monocytes Percent Auto 5.8 % (2-11); Neutrophils Absolute Auto 6.2 x10*3/uL (2.0-8.3); Neutrophils Percent Auto 69.2 % (45-73); Platelet Count 384 X10*3/uL (160-400); Red Blood Count 4.41 X10*6/uL (4.20-5.50); Red Cell Distribution Width 17.3 % (11.0-16.0); Retic HGB Equivalent 25.4 pg (30.0-35.0); Reticulocyte Percent 1.2 % (0.5-1.8); Reticulocytes Absolute 0.053 X10*6/uL (0.026-0.095); SCAN SMEAR FLAG 1
[2023-03-09 10:56] LABS: Appearance Urine Clear; Color Urine Yellow; Glucose Urine UA Negative (Negative); Leukocyte Esterase Urine Moderate (2+) (Negative); Nitrite Urine Negative (Negative); PH 5.5 (5.0-9.0); UMIC TRIGGER UA YES; Urine Blood Negative (Negative); Urine Ketones Negative (Negative); Urine Protein Negative (Neg-Trace)
[2023-03-09 10:59] LABS: Bacteria Urine None Seen (None Seen); Hyaline Casts Urine 0-2 /LPF (0-2); RBC Urine 0-2 /HPF (0-2); Squamous Epithelial Cell Urine 0-2 /HPF (0-2)
[2023-03-09 11:16] LABS: SLIDE REVIEW VERIFIED
[2023-03-09 12:37] LABS: Alanine Aminotransferase 9 U/L (0-31); Albumin Level 3.7 g/dL (3.5-5.0); Alkaline Phosphatase 85 U/L (39-117); Anion Gap 13 (12-20); Aspartate Amino Transferase 14 U/L (5-31); Bilirubin Total 0.4 mg/dL (0.0-1.0); Blood Urea Nitrogen 15 mg/dL (9-16); Calcium 9.8 mg/dL (8.4-10.2); Carbon Dioxide 25 mmol/L (22-29); Chloride 107 mmol/L (96-108); Cholesterol 207 mg/dL; Estimated Glomerular Filt Rate 45; Glucose Random 89 mg/dL (60-115); HDL Cholesterol 114 mg/dL; Iron 41 mcg/dL (30-160); LDL Cholesterol Calculated 75 mg/dl; Percent Iron Saturation 12 % (15-50); Potassium 5.3 mmol/L (3.3-5.1); Sodium 140 mmol/L (135-145); Total Iron Binding Capacity 351 mcg/dL (228-428); Triglycerides 91 mg/dL; Unsaturated Iron Binding 310 ug/dL
[2023-03-09 12:50] LABS: Ferritin 11 ng/mL (10-250); Folate 9.3 ng/mL (> or = 4.0); Free T4 (Free Thyroxine) 0.95 ng/dL (0.71-1.85); Thyroid Stimulating Hormone 2.18 uIU/mL (0.32-4.0); Vitamin B12 918 pg/mL (200-900); Vitamin D 25-OH Total 31.2 ng/mL (>30)
== END 2023-03-09 10:07 | disposition home or self-care (01) ==
LOC: HO.LAB 10:06
PROVIDERS: PCP Internal Medicine; Visit Provider Internal Medicine
DX: I48.91 Unspecified atrial fibrillation (principal); D64.9 Anemia, unspecified; E78.00 Pure hypercholesterolemia, unspecified; E55.9 Vitamin D deficiency, unspecified; M85.80 Other specified disorders of bone density and structure, unspecified site
CPT/HCPCS: 36415; 80053; 80061; 81001; 82306; 82607; 82728; 82746; 83540; 84439; 84443; 85025; 85045

== ENCOUNTER → 2023-03-26 09:43 | Outpatient (REF) | payer MEDICARE, BC, SELFPAY ==
--- NOTE | ~2023-03-26 | NM_ITS ---
Myocardial perfusion study Indication: Cardiac arrest to evaluate for ischemic cause Technique: The patient was brought in for a Lexiscan perfusion study on 03/25/2023. Patient performed low-level exercise and was injected 0.4 mg of Lexiscan intravenously. Within a minute of injection, 25 mCi of sestamibi was given intravenously. Images were obtained using the SPECT gamma camera interlaced with the gating device. Images were obtained in supine position. Resting perfusion study was performed on 03/28/2023. Patient was administered 25 mCi of sestamibi intravenously at rest. Images were then obtained in supine position. Images obtained with and without CT attenuation. Total DLP 78 mGy-cm. Images were processed with the software and compared side to side in short axis, horizontal long axis and vertical long axis views. Findings: The stress perfusion study showed non attenuated images show minimally reduced uptake in the apex of the LV myocardium. Remainder of the LV myocardium is normally perfused. There is suggestion of left ventricle hypertrophy. Attenuation corrected images show mildly reduced uptake in the apex of the LV myocardium.. The gated study shows normal LV systolic function with calculated LVEF of 50%. LV cavity is normal in size. The gated study shows normal folic wall thickening and contraction of segments. Resting study shows no change in perfusion pattern compared to stress perfusion study. Gating at rest reveals normal systolic wall motion with ejection fraction at 55%. The findings are consistent with normal myocardial perfusion. NM/NM cardiolite stress test Impression: 1. Myocardial perfusion imaging study shows normal myocardial perfusion 2. Gated LVEF is 55%% 3. Transient ischemic dilatation not present EKG is nondiagnostic for ischemia
--- NOTE | 2023-03-26 09:51 | CA_ITS ---
Acquisition Time: 2023-03-26 10:07:43 Total Exercise Time: 00:02:00 Test Indications: cardiac arrest Medications: albuterol cardizem Protocol: LEXISCAN Max HR: 100 BPM 68% of Pred: 146 BPM Max BP: 142/070 mmHG Max Work Load: 1.0 METS Pharmacological stress test with Lexiscan injection, while sitting and kicking her legs, without anginal symptoms, with isolated PVC, with normotensive response to injection, with nondiagnostic EKG for ischemia. In recovery she was treated with Aminophylline 75mg IVP to reverse Lexiscan. Nuclear images pending. Test reviewed with Dr Pierce. Referred By: Jovani Sorto Overread By: JOSE CORREIA
== END ==
LOC: HO.CARD 09:43
PROVIDERS: PCP Internal Medicine; Visit Provider Internal Medicine
DX: I46.9 Cardiac arrest, cause unspecified (principal)
CPT/HCPCS: 78452; 93017; A9500; J0280; J2785

== ENCOUNTER → 2023-04-06 10:26 | Outpatient (BNVA) | payer MEDICARE, BC, SELFPAY | PROVIDERS: PCP Internal Medicine; Visit Provider Internal Medicine Gastroenterology | DX: K29.70 Gastritis, unspecified, without bleeding (principal) | CPT/HCPCS: Q3014 ==

== ENCOUNTER 2023-05-30 12:31 | Outpatient (AMB) | payer MEDICARE, BC, SELFPAY ==
--- NOTE | 2023-05-30 12:33 | MHC.OFFVIS ---
Intake Vital Signs 05/30/23 12:34 Height 5 ft 5 in Weight 134 lb 14.766 oz BMI 22.4 BP 128/56 L Blood Pressure Location Rt brachial Position Sitting Pulse 78 Intake Visit Reasons: 3 mth f/up mibi Intake Note: 3 month follow up Remote Advisor Required: No Accompanied by: Self / Same As Patient Allergies lisinopril [LISINOPRIL] Allergy (Intermediate, Verified 05/30/23 12:36) COUGH, constant cough simvastatin [SIMVASTATIN] Allergy (Mild, Verified 05/30/23 12:36) Confusion Medication List - Last Reconciled 05/30/23 by Jovani Sorto MD albuterol sulfate INHALE 2 VIALS (6ML) VIA NEBULIZER 4 TIMES A DAY NEEDED FOR WHEEZE/SHORTNESS OF BREATH albuterol sulfate 90 mcg/actuation 2 puffs PO Q4H PRN apixaban (Eliquis) 5 mg PO BID 90 days budesonide-formoterol 80-4.5 mcg/actuation (Symbicort) 2 puffs inhalation BID cholecalciferol (vitamin D3) 50 mcg PO DAILY cyanocobalamin (vitamin B-12) 1,000 mcg PO DAILY cyclobenzaprine 10 mg PO BID PRN duloxetine 60 mg PO DAILY esomeprazole magnesium 40 mg PO DAILY famotidine 20 mg PO BEDTIME 90 days fluticasone propionate 110 mcg/actuation (Flovent HFA) 2 puffs inhalation BID hydromorphone (Dilaudid) 4 mg PO Q4H PRN mesalamine ER 1,000 mg (2 x 500 mg) PO TID montelukast (Singulair) 10 mg PO DAILY nebulizers (Aeroneb Go Nebulizer) As directed updraft treatment every 4 hours p.r.n. prochlorperazine maleate 5 mg PO TID PRN [THC oral drop 8 drops ] topiramate 50 mg PO DAILY PRN zolpidem 10 mg PO BEDTIME PRN 90 days HPI HPI Comments History of Present Illness Details Maru returns for follow-up. To recall, she was recently seen in consultation regarding question of cardiac arrest. The code blue note was reviewed. It seems that patient was ambulating to the bathroom independently and then when she came back she was having respiratory distress and called for help. The rhythm was asystole/PEA. She was resuscitated by ACLS protocol. After that, sent to ICU. I discussed with the ICU attending at that time. He stated that the impression was the arrest was primarily respiratory in nature and cardiac part was secondary. Patient herself does not have any known cardiac issues at all. Around the time of the actual arrest, she also had some atrial fibrillation but then resolved. She was already on anticoagulation for DVT and hence no changes were made for that part. She was put on diltiazem. Over the last few months, she states she is doing fine. No specific concerns. She states she went to [place] for vacation and walk many miles with [facility] Medical History (Updated 04/06/23 @ 10:43 by Fish Baptiste MD) Acute respiratory failure Asthma Asthma exacerbation Atrial fibrillation Atrial fibrillation with rapid ventricular response Breast cancer screening by mammogram Chronic gastritis Chronic low back pain Colon cancer screening Diarrhea Dysphagia Epigastric abdominal pain GERD (gastroesophageal reflux disease) History of DVT (deep vein thrombosis) Hypercholesterolemia Hypertension Insomnia Polyarthralgia Radicular low back pain Respiratory arrest RUQ pain Scalp mass Secondary malignant neoplasm of retroperitoneum and peritoneum Tubular adenoma of colon Vitamin B12 deficiency Vitamin D deficiency Surgical History History of back surgery History of section History of colonoscopy History of excision of mass (~01/11/22) History of nephroureterectomy History of tonsillectomy History of tubal ligation Hx of endoscopy Retroperitoneal liposarcoma Family History Father Myocardial infarction CVD (cardiovascular disease) Mother CVD (cardiovascular disease) Stroke Brother Myocardial infarction CVD (cardiovascular disease) Social History Household Members: Spouse and Family Housing: House Do you presently have visiting nurse or other home services: No Alcohol intake: never Patient Tobacco Use Status: Never used Tobacco e-Cigarette/Vaping Use: Never Used Second Hand Smoke Exposure: No Substance Use Type: Marijuana and Other service: No Current occupational status: retired Cognitive needs: No Hearing needs: No Vision needs: Yes Review of Systems Const Denies weakness ENT Denies dizziness Card Denies chest pain, Denies chest pain with activity, Denies syncope, Denies rapid heart rate, Denies pedal edema, Denies edema, Denies leg edema, Denies lightheadedness, Denies palpitations, Denies dyspnea, Denies dyspnea on exertion and Denies orthopnea Resp Denies cough, Denies dyspnea and Denies dyspnea on exertion GI Denies hematochezia and Denies change in stool character Musc Denies abnormal gait, Denies muscle cramps, Denies muscle weakness, Denies numbness, Denies radiating pain into limb and Denies tingling Neuro Denies abnormal gait, Denies dizziness, Denies syncope, Denies numbness, Denies tingling and Denies weakness Endo Denies palpitations Physical Exam Vital Signs: Last Vital Signs Pulse 78 05/30/23 12:34 BP 128/56 L 05/30/23 12:34 BMI result Body Mass Index 22.4 Const General: comfortable and no acute distress Orientation/consciousness: patient oriented x3 HEENT Other: Unremarkable Head: Yes normal to inspection Neck Neck: Yes normal visual inspection Chest Chest palpation & inspection: normal inspection of the chest Resp Auscultation: clear to auscultation bilaterally Cardio Palpation: normal PMI Heart sounds: S1 normal heart sound present, S2 normal heart sound present, no gallops, no murmurs and no rubs GI Palpation (GI): Soft to palpation Back/Spine/Pelvis Other: unremarkable Skin General skin exam: no rashes or lesions noted Neuro General: patient oriented x3 Extrem General: Yes normal to inspection Psych Mental Status: mental status grossly normal Assessment & Plan Assessment & Plan (1) Cardiac arrest: Code(s): I46.9 - Cardiac arrest, cause unspecified Plan: Per code blue note, patient had asystole/PEA. Suspected to be primarily respiratory in nature which then led to cardiac arrest. Rounding Machine Tender did not feel that cardiac was primary issue. Echocardiogram with hyperdynamic LVEF. No wall motion abnormalities. We will check stress perfusion imaging for ischemia assessment. Pharmacological stress perfusion imaging study unremarkable. (2) PAF (paroxysmal atrial fibrillation): Code(s): I48.0 - Paroxysmal atrial fibrillation Plan: Happened around the time of cardiac arrest.? Holter monitor shows no recurrent atrial fibrillation.? She is on Eliquis, but that was actually for DVT. No specific need for anticoagulation from cardiac standpoint. Coding Level of Care Code Est Pt Level 4 (02910) Diagnoses Cardiac arrest I46.9 PAF (paroxysmal atrial fibrillation) I48.0
[2023-05-30 12:34] VITALS: BP 128/56; PULSE 78; BMI 22.4
== END 2023-05-30 13:11 | disposition home or self-care (01) ==
PROVIDERS: Visit Provider Internal Medicine
DX: I46.9 Cardiac arrest, cause unspecified (principal); I48.0 Paroxysmal atrial fibrillation
CPT/HCPCS: 99214

== ENCOUNTER → 2023-05-30 12:31 | Outpatient (BNVA) | payer MEDICARE, BC, SELFPAY | PROVIDERS: Visit Provider Internal Medicine | DX: I46.9 Cardiac arrest, cause unspecified (principal); I48.0 Paroxysmal atrial fibrillation | CPT/HCPCS: 99212 ==

== ENCOUNTER 2023-07-03 14:35 | Outpatient (AMB) | payer MEDICARE, BC, SELFPAY ==
[2023-07-03 14:37] VITALS: BP 136/76; PULSE 76; O2SAT 98; BMI 22.2
--- NOTE | 2023-07-03 14:37 | MHC.PC.OV ---
Vital Signs 07/03/23 14:37 Height 5 ft 5 in Weight 133 lb 6 oz BMI 22.2 BP 136/76 Blood Pressure Location Lt brachial Position Sitting Pulse 76 Pulse Source Pulse Oximeter Pulse Oximetry (%) 98 Oxygen Delivery Method Room Air Intake Visit Reasons: 3 MONTH F/U Allergies lisinopril [LISINOPRIL] Allergy (Intermediate, Verified 07/03/23 14:37) COUGH, constant cough simvastatin [SIMVASTATIN] Allergy (Mild, Verified 07/03/23 14:37) Confusion Tobacco use date assessed: 03/15/23 Fall risk assessment: No Falls in past year Last assessed Fall Risk: 07/03/23 Dental Screening Dental Screen Date: 07/03/23 Did you have a dental visit in the last 12 months?: No Did you have a dental problem in the last 6 months where you did not have access to dental care?: No Was dental information given to patient?: Patient declined HPI 3 MONTH F/U HPI Details 73-year-old female with atrial fibrillation, asthma GERD chronic low back pain coming in for follow-up. March 2023 last seen patient follows up with Cardiology. Last seen in May 2023. History of cardiac arrest suspected primarily respiratory in nature . Echocardiogram shows hyperdynamic left ventricular ejection fraction no wall motion abnormalities Holter monitor did not show atrial fibrillation Eliquis for the DVT history. Patient did have a myocardial perfusion scan showing normal myocardial perfusion left ventricular ejection fraction 55% Patient follows up with Gastroenterology also with a history of partial colectomy 2018 with redo surgery last colonoscopy an EGD January 2022 bile acid reflux related gastritis esophagitis esophageal strictures, colonoscopy internal hemorrhoids with polyp tubular adenoma. Had balloon dilatation patient is advised to continue with Pentasa recheck manometry change omeprazole to Nexium. recetnly loss of mother. has complains of forgetting. wants [facility]2 [facility] Medical History (Updated 07/03/23 @ 15:29 by Chiara Diggs MD) Acute respiratory failure Asthma Asthma exacerbation Atrial fibrillation Atrial fibrillation with rapid ventricular response Breast cancer screening by mammogram Chronic gastritis Chronic low back pain Colon cancer screening Diarrhea Dysphagia Epigastric abdominal pain GERD (gastroesophageal reflux disease) History of DVT (deep vein thrombosis) Hypercholesterolemia Hypertension Insomnia Polyarthralgia Radicular low back pain Respiratory arrest RUQ pain Scalp mass Secondary malignant neoplasm of retroperitoneum and peritoneum Tubular adenoma of colon Vitamin B12 deficiency Vitamin D deficiency Surgical History History of back surgery History of section History of colonoscopy History of excision of mass (~01/11/22) History of nephroureterectomy History of tonsillectomy History of tubal ligation Hx of endoscopy Retroperitoneal liposarcoma Family History (Updated 07/03/23 @ 14:39 by Messi Waite MA) Father Myocardial infarction CVD (cardiovascular disease) Mother CVD (cardiovascular disease) Stroke Brother Myocardial infarction CVD (cardiovascular disease) Social History Household Members: Spouse and Family Housing: House Do you presently have visiting nurse or other home services: No Alcohol intake: never Patient Tobacco Use Status: Never used Tobacco e-Cigarette/Vaping Use: Never Used Second Hand Smoke Exposure: No Substance Use Type: Marijuana and Other service: No Current occupational status: retired Cognitive needs: No Hearing needs: No Vision needs: Yes Questionnaire PHQ-9 Over the last 2 weeks, how often have you been bothered by any of the following problems? 1. Little interest or pleasure in doing things: not at all 2. Feeling down, depressed, or hopeless: not at all 3. Trouble falling or staying asleep, or sleeping too much: not at all 4. Feeling tired or having little energy: not at all 5. Poor appetite or overeating: not at all 6. Feeling bad about yourself - or that you are a failure or have let yourself or your family down: not at all 7. Trouble concentrating on things, such as reading the newspaper or watching television: not at all 8. Moving or speaking so slowly that other people could have noticed. Or the opposite - being so fidgety or restless that you have been moving around a lot more than usual: not at all 9. Thoughts that you would be better off or of hurting yourself in some way: not at all Total score: 0 Depression Screening Interpretation: Positive 63442 - PHQ-9 Billing: Yes Source: Developed by Drs. Juventino Harper, Kaelyn Bruno, Ajay Briggs and colleagues, with an educational lake from [employer]. Thrive Questionnaire Date Thrive assessed: 03/15/23 AUDIT C Alcohol Use Questionnaire (AUDIT-C) 1. How often do you have a drink containing alcohol?: Never 3. How often do you have six or more drinks on one occasion?: Never Total Score: 0 TYLER-7 AMB Questionnaire TYLER-7 Date TYLER - 7 assessed: 03/15/23 Source: Developed by Drs. Juventino Harper, Kaelyn Bruno, Ajay Briggs and colleagues, with an educational lake from [employer]. Physical exam (Primary Care) Vital Signs: Last Vital Signs Pulse 76 07/03/23 14:37 BP 136/76 07/03/23 14:37 Pulse Ox 98 07/03/23 14:37 Oxygen Delivery Method Room Air 07/03/23 14:37 BMI result Body Mass Index 22.2 Tobacco/Smoking Status: Tobacco use Status Tobacco use date assessed 03/15/23 07/03/23 14:43 Patient Tobacco Use Status Never used Tobacco 07/03/23 14:43 e-Cigarette/Vaping Use Never Used 07/03/23 14:43 PHQ-9: PHQ-9 Score PHQ-9: Total score 0 07/03/23 14:43 Depression Screening Interpretation: Positive Thrive Assessment: Date of Thrive Assessment Date Thrive assessed 03/15/23 07/03/23 14:43 Const General: alert; No acute distress Eyes Conjunctivae: conjunctivae normal Resp Auscultation: clear to auscultation bilaterally Cardio Rate: regular rate Rhythm: regular rhythm GI Inspection: Yes normal to inspection Extrem General: Yes normal to inspection and No edema Assessment and Plan Assessment & Plan (1) PAF (paroxysmal atrial fibrillation): Code(s): I48.0 - Paroxysmal atrial fibrillation Plan: Cardiology notes appreciated and anticoagulation is not needed for her problem. Anticoagulation is more from the DVT history (2) Asthma: Code(s): J45.909 - Unspecified asthma, uncomplicated Qualifiers: Asthma severity: mild Asthma persistence: intermittent Asthma complication type: uncomplicated Qualified Code(s): J45.20 - Mild intermittent asthma, uncomplicated Plan: Continue with inhaler as needed and Symbicort rinsing mouth after using (3) Recurrent major depression: Comment: Private counsellor Code(s): F33.9 - Major depressive disorder, recurrent, unspecified Plan: Continue with counseling as well as duloxetine 60 mg once a day (4) Cholelithiasis: Code(s): K80.20 - Calculus of gallbladder without cholecystitis without obstruction Qualifiers: Cholelithiasis location: gallbladder Cholecystitis presence: without cholecystitis Biliary obstruction: without biliary obstruction Qualified Code(s): K80.20 - Calculus of gallbladder without cholecystitis without obstruction Plan: Low-fat diet (5) Chronic low back pain: Comment: X2 [address] Harrison Code(s): M54.5 - Low back pain; G89.29 - Other chronic pain Plan: Continue with pain medication (6) GERD (gastroesophageal reflux disease): Code(s): K21.9 - Gastro-esophageal reflux disease without esophagitis Qualifiers: Esophagitis presence: without esophagitis Qualified Code(s): K21.9 - Gastro-esophageal reflux disease without esophagitis Plan: Avoid the foods that causes that usually spicy foods, tomato products, juices, coffee, soda and foods that your sensitive to. After eating do not lie down, allow 3-4 hours before in lie down. And keep the head of bed above 30 degrees to avoid the acid from going up. (7) Memory deficit: Code(s): R41.3 - Other amnesia (8) Trigger finger: Code(s): M65.30 - Trigger finger, unspecified finger Orders: Referrals Neuropsychiatry Referral R41.3 - Other amnesia Orthopedics Referral M65.30 - Trigger finger, unspecified finger Medications: Discontinued fluticasone propionate 110 mcg/actuation (Flovent HFA) Discontinued Reason: Doctor's Order 2 puffs inhalation BID 12 grams 3RF J45.20 - Mild intermittent asthma, uncomplicated Coding Level of Care Code Est Pt Level 4 (52375) Diagnoses PAF (paroxysmal atrial fibrillation) I48.0 Asthma J45.20 Asthma severity: mild Asthma persistence: intermittent Asthma complication type: uncomplicated Recurrent major depression F33.9 Cholelithiasis K80.20 Cholelithiasis location: gallbladder Cholecystitis presence: without cholecystitis Biliary obstruction: without biliary obstruction Chronic low back pain M54.5; G89.29 GERD (gastroesophageal reflux disease) K21.9 Esophagitis presence: without esophagitis Memory deficit R41.3 Trigger finger M65.30
== END 2023-07-03 15:32 | disposition home or self-care (01) ==
PROVIDERS: Visit Provider Internal Medicine
DX: I48.0 Paroxysmal atrial fibrillation (principal); J45.20 Mild intermittent asthma, uncomplicated; F33.9 Major depressive disorder, recurrent, unspecified; K21.9 Gastro-esophageal reflux disease without esophagitis; K80.20 Calculus of gallbladder without cholecystitis without obstruction; M54.50 Low back pain, unspecified; G89.29 Other chronic pain; R41.3 Other amnesia
CPT/HCPCS: 99214

== ENCOUNTER 2023-08-17 09:52 | Outpatient (AMB) | payer MEDICARE, BC, SELFPAY ==
--- NOTE | 2023-08-17 09:53 | MHC.OFFVIS ---
Intake Vital Signs 08/17/23 09:56 Height 5 ft 5 in Weight 136 lb 10.986 oz BMI 22.7 BP 134/73 Blood Pressure Location Lt brachial Position Sitting Pulse 82 Intake Visit Reasons: 4 month follow up Intake Note: Maru presents in the office as a 4 month follow up. CC: She states that she is not having any concerns but she has been unable to get her hyoscycamine medication. 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 After she eats she feels full and it hurts ? pain is like an overating feeling, 04/14 severity, she waits for it to pass ? going on since Nov 2018 after right nephrectomy, partial colectomy, adrenal gland then had redo surgery March 2019 for obstruction ? she has diarrhea since surgery, no exacerbating or relieving factors, maybe worse with ice creams or sausage ? weight loss 70# over last year, ? she also takes fentanyl patch and dilaudid since Nov 2018 TESTS: ? colonoscopy 2009--polyp removed, tics ? plan was for EGD and GES but due to covid fears she wanted to hold, she was given trial fo movantik and cholestyramine ? finally had GES 05/2020-- normal at 4 hrs, slightly fast at 1 hr ? EGD 07/2020--- inflammed anastomotic rim ? bx gastric nodule, chronic inflammation, ulcerated, chronic inflammation stomach, fundic gland polyp, US 01/17/21--gallstones ? ? HIDA scan: 03/25- EF 32%, no acute cholecystitis ? she was taking movantik but stopped it as it made her go more often to toilet ? she was unabel to take cholestyramine due to need to take 4 hrs before meds was given trial of sucralfate advised on small freq meals, more fiber in diet I had increased PPI due to ongoing abdo pain she was holding off on GB surgery due to high risks miguelina given prior hx of surgeries, although she was having RUQ pain I gave her bentyl to see if would help she had ongoing RUQ pain, worse after eating a meal--given dilaudid by pain clinic EGD/colonoscopy:01/11/22 Endoscopy Findings: bile acid reflux related gastritis esophagitis esophageal strictures Colonoscopy Findings: polyp internal hemorrhoids diverticular disease balloon? was done with small tear at LES Path: tubular adenoma focal enteritis esophagitis ?INTERIM: She couldnt go for the manometry due to her mother passing away she still has abnormal sensaton with swallowing, spits out food, solids only she conts with mesalamine and still feels 50% improvement with it still taking omeprazole weight has been stable mild nausea, no vomiting still taking dilaudid 4 mg TID she felt no real benefit from anti spasmodic EXAM: GENERAL: The patient is well developed and nontoxic. VITAL SIGNS:see workflow HEENT: Nonicteric sclerae, PERRLA, EOMI. Oropharynx clear. Moist mucous membranes. Conjunctivae appear well perfused. No thyroid mass. CHEST: Chest wall is nontender. HEART: Regular rate and rhythm without murmurs. LUNGS: Clear to auscultation bilaterally. ABDOMEN: Soft, positive bowel sounds, mildly tender epigastrium, no organomegaly.no flank tenderness SKIN: No rash, no excessive bruising, petechiae, or purpura. NEUROLOGIC: Cranial nerves II-XII intact without motor/sensory deficit. Assessment & Plan (1) Chronic gastritis: ? ? ? 2/ ?GB dyskinesia 2/2 opiates 3/ diarrhea, post prandial, some improvement with mesalamine but only at 50% 4/ swallowing issues maybe related to gERD and opiate use--ongoing 5/ tubular adenoma ? PLAN: 1/ change pentasa to apriso and see if better effect, if not covered then trial of welchol 2/ call [facility] to r/s manometry date with Dr Sheikh - 3/ can also consider trial of movantik or relistor to see if helps swallowing depending on above ?? ? [facility] Medical History (Updated 08/17/23 @ 10:30 by Fish Baptiste MD) Dysphagia Diarrhea Atrial fibrillation Atrial fibrillation with rapid ventricular response Acute respiratory failure Respiratory arrest Asthma exacerbation Radicular low back pain Polyarthralgia Scalp mass Colon cancer screening Breast cancer screening by mammogram RUQ pain Epigastric abdominal pain Chronic gastritis Chronic low back pain Tubular adenoma of colon Hypercholesterolemia Hypertension Vitamin D deficiency Asthma GERD (gastroesophageal reflux disease) Vitamin B12 deficiency Secondary malignant neoplasm of retroperitoneum and peritoneum History of DVT (deep vein thrombosis) Insomnia Surgical History History of excision of mass (~01/11/22) Hx of endoscopy History of colonoscopy Retroperitoneal liposarcoma History of nephroureterectomy History of back surgery History of section History of tubal ligation History of tonsillectomy Family History Father Myocardial infarction CVD (cardiovascular disease) Mother CVD (cardiovascular disease) Stroke Brother Myocardial infarction CVD (cardiovascular disease) Social History Household Members: Spouse and Family Housing: House Do you presently have visiting nurse or other home services: No Alcohol intake: never Patient Tobacco Use Status: Never used Tobacco e-Cigarette/Vaping Use: Never Used Second Hand Smoke Exposure: No Substance Use Type: Marijuana and Other service: No Current occupational status: retired Cognitive needs: No Hearing needs: No Vision needs: Yes Physical Exam Vital Signs: Last Vital Signs Pulse 82 08/17/23 09:56 BP 134/73 08/17/23 09:56 BMI result Body Mass Index 22.7 Assessment & Plan Assessment & Plan (1) Dysphagia: Code(s): R13.10 - Dysphagia, unspecified (2) Diarrhea: Code(s): R19.7 - Diarrhea, unspecified Medications: New mesalamine ER (Apriso) 1.5 grams (4 x 0.375 gram) PO QAM 120 caps 0RF Discontinued mesalamine ER Discontinued Reason: Doctor's Order 1,000 mg (2 x 500 mg) PO TID 240 caps 0RF Coding Level of Care Code Est Pt Level 3 (39992) Diagnoses Dysphagia R13.10 Diarrhea R19.7
[2023-08-17 09:56] VITALS: BP 134/73; PULSE 82; BMI 22.7
== END 2023-08-17 10:39 | disposition home or self-care (01) ==
PROVIDERS: PCP Internal Medicine; Visit Provider Internal Medicine Gastroenterology
DX: R13.10 Dysphagia, unspecified (principal); R19.7 Diarrhea, unspecified
CPT/HCPCS: 99213

== ENCOUNTER → 2023-08-17 09:52 | Outpatient (BNVA) | payer MEDICARE, BC, SELFPAY | PROVIDERS: PCP Internal Medicine; Visit Provider Internal Medicine Gastroenterology | DX: R13.10 Dysphagia, unspecified (principal); R19.7 Diarrhea, unspecified | CPT/HCPCS: 99212 ==

== ENCOUNTER 2023-08-29 10:47 | Outpatient (AMB) | payer MEDICARE, BC, SELFPAY ==
[2023-08-29 10:59] VITALS: BMI 22.6
--- NOTE | 2023-08-29 10:59 | A.OFFVIS_ITS ---
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 Patient reports that she is havign pain and stiffness of the left thumb and index fingers. This sensation is present all the times and explains it as a radha horse feeling. 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 She says this occurs with activities, especially holding objects such as a book or iPad. She denies any numbness, tingling, or locking. [facility] Medical History (Updated 08/29/23 @ 11:36 by Jo Ann Chase MD) Dysphagia Diarrhea Atrial fibrillation Atrial fibrillation with rapid ventricular response Acute respiratory failure Respiratory arrest Asthma exacerbation Radicular low back pain Polyarthralgia Scalp mass Colon cancer screening Breast cancer screening by mammogram RUQ pain Epigastric abdominal pain Chronic gastritis Chronic low back pain Tubular adenoma of colon Hypercholesterolemia Hypertension Vitamin D deficiency Asthma GERD (gastroesophageal reflux disease) Vitamin B12 deficiency Secondary malignant neoplasm of retroperitoneum and peritoneum History of DVT (deep vein thrombosis) Insomnia Surgical History History of excision of mass (~01/11/22) Hx of endoscopy History of colonoscopy Retroperitoneal liposarcoma History of nephroureterectomy History of back surgery History of section History of tubal ligation History of tonsillectomy Family History Father Myocardial infarction CVD (cardiovascular disease) Mother CVD (cardiovascular disease) Stroke Brother Myocardial infarction CVD (cardiovascular disease) Social History Household Members: Spouse and Family Housing: House Do you presently have visiting nurse or other home services: No Alcohol intake: never Patient Tobacco Use Status: Never used Tobacco e-Cigarette/Vaping Use: Never Used Second Hand Smoke Exposure: No Substance Use Type: Marijuana and Other service: No Current occupational status: retired Cognitive needs: No Hearing needs: No Vision needs: Yes Review of Systems Const All systems reviewed & are unremarkable except as noted in HPI and below Physical Exam Vital Signs: BMI result Body Mass Index 22.6 Const General: cooperative, healthy appearing and no acute distress Orientation/consciousness: patient oriented x3 HEENT Head: Yes normocephalic and Yes atraumatic Eyes EOM: EOMs intact bilaterally Resp Effort & Inspection: normal respiratory effort and able to speak in complete sentences Cardio Jugular venous distension: no JVD Skin General skin exam: turgor normal Rashes: no rashes Neuro General: patient oriented x3 Extrem Other: Evaluation of Bilateral Upper Extremity: The patient is alert, oriented, and in no acute distress Neuro: Median, Ulnar, Radial nerves motor and sensory intact and sensation is normal to the tips of all digits Vascular: Cap refill brisk ROM: She can make a fist and extend all her digits No locking or catching, no tenderness over the A1 pulleys. Skin: No lacerations or abrasions. General: No Ecchymosis. No Erythema or evidence of infection. Psych Appearance: grossly normal Affect: normal affect Attitude: cooperative Assessment & Plan Assessment & Plan (1) Cramping of hands: Code(s): R25.2 - Cramp and spasm Plan Assessment & Plan: 1. Bilateral hand cramping In the 1st webspace with activity I educated her about this condition I discussed activity modification I ordered OT hand therapy for stretching and strengthening exercises She can follow up prn. Scribed for Jo Ann Chase MD by Andrea Childress, expert medical writer, on 08/29/23 at 11:35 AM, EST. Orders: Orders OT Evaluation and Treatment Today R25.2 - Cramp and spasm Coding Level of Care Code New Pt Level 3 (74827) Diagnoses Cramping of hands R25.2
== END 2023-08-29 11:36 | disposition home or self-care (01) ==
PROVIDERS: PCP Internal Medicine; Visit Provider Orthopaedic Surgery
DX: R25.2 Cramp and spasm (principal)
CPT/HCPCS: 99203

== ENCOUNTER → 2023-08-29 10:47 | Outpatient (BNVA) | payer MEDICARE, BC, SELFPAY | PROVIDERS: PCP Internal Medicine; Visit Provider Orthopaedic Surgery | DX: R25.2 Cramp and spasm (principal) | CPT/HCPCS: 99202 ==

== ENCOUNTER 2023-09-04 07:53 | Outpatient (AMB) | payer MEDICARE, BC, SELFPAY ==
--- NOTE | 2023-09-04 07:53 | MHC.PC.OV ---
Intake Visit Reasons: sick for 1 week, ongoing cough Intake Note: Patient has been taking robitussin, sudafed, and nyquil. Allergies lisinopril [LISINOPRIL] Allergy (Intermediate, Verified 09/04/23 07:54) COUGH, constant cough simvastatin [SIMVASTATIN] Allergy (Mild, Verified 09/04/23 07:54) Confusion Tobacco use date assessed: 03/15/23 Fall risk assessment: No Falls in past year Last assessed Fall Risk: 09/04/23 Dental Screening Dental Screen Date: 09/04/23 Did you have a dental visit in the last 12 months?: No Did you have a dental problem in the last 6 months where you did not have access to dental care?: No Was dental information given to patient?: Patient has dentist HPI HPI Comments History of Present Illness Details 73-year-old female past medical history significant for AFib, GERD, vitamin-D deficiency, anemia and asthma. Patient of , presents today for a telehealth visit for 1 week of ongoing cough. Patient reports cough x1 week with large amount of yellow sputum production and chest congestion. Patient does report some shortness of breath and wheezing, uses her albuterol inhaler or nebulizer machine with relief of this. Patient states swabbed herself for COVID yesterday which was negative. Denies the need for refills on nebulizer treatments for rescue inhaler. Patient denies any fever, chills, sore throat nasal congestion. Patient also reports her and daughter her sick as well with respiratory infections. [facility] Medical History (Updated 08/29/23 @ 11:36 by Jo Ann Chase MD) Dysphagia Diarrhea Atrial fibrillation Atrial fibrillation with rapid ventricular response Acute respiratory failure Respiratory arrest Asthma exacerbation Radicular low back pain Polyarthralgia Scalp mass Colon cancer screening Breast cancer screening by mammogram RUQ pain Epigastric abdominal pain Chronic gastritis Chronic low back pain Tubular adenoma of colon Hypercholesterolemia Hypertension Vitamin D deficiency Asthma GERD (gastroesophageal reflux disease) Vitamin B12 deficiency Secondary malignant neoplasm of retroperitoneum and peritoneum History of DVT (deep vein thrombosis) Insomnia Surgical History History of excision of mass (~01/11/22) Hx of endoscopy History of colonoscopy Retroperitoneal liposarcoma History of nephroureterectomy History of back surgery History of section History of tubal ligation History of tonsillectomy Family History Father Myocardial infarction CVD (cardiovascular disease) Mother CVD (cardiovascular disease) Stroke Brother Myocardial infarction CVD (cardiovascular disease) Social History Household Members: Spouse and Family Housing: House Do you presently have visiting nurse or other home services: No Alcohol intake: never Patient Tobacco Use Status: Never used Tobacco e-Cigarette/Vaping Use: Never Used Second Hand Smoke Exposure: No Substance Use Type: Marijuana and Other service: No Current occupational status: retired Cognitive needs: No Hearing needs: No Vision needs: Yes Questionnaire PHQ-9 Over the last 2 weeks, how often have you been bothered by any of the following problems? 1. Little interest or pleasure in doing things: not at all 2. Feeling down, depressed, or hopeless: not at all 3. Trouble falling or staying asleep, or sleeping too much: not at all 4. Feeling tired or having little energy: not at all 5. Poor appetite or overeating: not at all 6. Feeling bad about yourself - or that you are a failure or have let yourself or your family down: not at all 7. Trouble concentrating on things, such as reading the newspaper or watching television: not at all 8. Moving or speaking so slowly that other people could have noticed. Or the opposite - being so fidgety or restless that you have been moving around a lot more than usual: not at all 9. Thoughts that you would be better off or of hurting yourself in some way: not at all Total score: 0 Depression Screening Interpretation: Positive Depression Screening Done: Yes 89859 - PHQ-9 Billing: Yes Source: Developed by Drs. Juventino Harper, Kaelyn Bruno, Ajay Briggs and colleagues, with an educational lake from [employer]. Thrive Questionnaire Date Thrive assessed: 03/15/23 AUDIT C Alcohol Use Questionnaire (AUDIT-C) 1. How often do you have a drink containing alcohol?: Never 3. How often do you have six or more drinks on one occasion?: Never Total Score: 0 TYLER-7 AMB Questionnaire TYLER-7 Date TYLER - 7 assessed: 03/15/23 Source: Developed by Drs. Juventino Harper, Kaelyn Bruno, Ajay Briggs and colleagues, with an educational lake from [employer]. Review of Systems Const Denies chills, Denies fatigue, Denies fever(s) and Denies poor appetite Eyes Denies no additional complaints ENT Reports Normal hearing present, Denies nasal congestion, Denies sinus pain, Denies sinus pressure and Denies sore throat Card Denies chest pain, Denies syncope, Denies rapid heart rate and Reports dyspnea Resp Reports cough, Reports excessive phlegm production, Reports dyspnea and Reports wheezing GI Denies change in stool character, Denies constipation, Denies diarrhea, Denies nausea and Denies vomiting Denies urinary frequency, Denies dysuria and Denies urinary urgency Neuro Reports Normal hearing present, Denies confusion and Denies syncope Psych Denies confusion Endo Denies fatigue Aller/Immun Reports wheezing Physical exam (Primary Care) Vital Signs: unable to complete, Telehealth exam. Tobacco/Smoking Status: Tobacco use Status Tobacco use date assessed 03/15/23 09/04/23 07:56 Patient Tobacco Use Status Never used Tobacco 09/04/23 07:56 e-Cigarette/Vaping Use Never Used 09/04/23 07:56 PHQ-9: PHQ-9 Score PHQ-9: Total score 0 09/04/23 09:28 Depression Screening Interpretation: Positive Thrive Assessment: Date of Thrive Assessment Date Thrive assessed 03/15/23 09/04/23 07:56 Const General: No confusion Orientation/consciousness: No confusion Neuro General: No confusion Cranial nerves: Yes Normal hearing present Telehealth Telehealth Location of provider rendering services: practice address Location of patient: address on file Patient Identification confirmed using: Name, : Yes Telehealth method: voice only Patient verbally consented to treatment: Yes Patient verbally consented to billing insurance company: Yes Patient informed of any privacy concerns related to visit: Yes Minutes spent on Phone/Video with Pt.: 9 Assessment and Plan Assessment & Plan (1) Asthma: Code(s): J45.909 - Unspecified asthma, uncomplicated Qualifiers: Asthma complication type: uncomplicated Asthma persistence: intermittent Asthma severity: mild Qualified Code(s): J45.20 - Mild intermittent asthma, uncomplicated Plan: Given patient is experiencing shortness of breath and wheezing will send prednisone 10 mg daily x5 days. Continue to use albuterol and nebulizer treatments as needed for shortness of breath and wheezing. Signs and symptoms reviewed with patient when to seek emergency medical attention. (2) PAF (paroxysmal atrial fibrillation): Code(s): I48.0 - Paroxysmal atrial fibrillation Plan: Continue on Eliquis 5 mg b.i.d. for anticoagulation (3) Upper respiratory infection: Code(s): J06.9 - Acute upper respiratory infection, unspecified Plan: Will send azithromycin and benzonatate for cough for 1 week cough with large amount of yellow sputum, likely bacterial upper respiratory infection. Plan Keep scheduled follow-up with PCP or follow-up sooner if needed. Medications: New benzonatate 100 mg PO TID PRN 30 caps 0RF cough azithromycin For 250 mg dose pack: take 500 mg today (day 1), then 250 mg for 4 days (days 2-5) PO 6 tabs 0RF prednisone 10 mg PO DAILY 5 tabs 0RF Coding Level of Care Code Tele Est Pt Level 4 (19018) Diagnoses Mild intermittent asthma without complication J45.20 Asthma complication type: uncomplicated Asthma persistence: intermittent Asthma severity: mild PAF (paroxysmal atrial fibrillation) I48.0 Upper respiratory infection J06.9
== END 2023-09-04 08:09 | disposition home or self-care (01) ==
LOC: HO.HMGH 07:53
PROVIDERS: PCP Internal Medicine; Visit Provider Nurse Practitioner Family
DX: J45.20 Mild intermittent asthma, uncomplicated (principal); I48.0 Paroxysmal atrial fibrillation; J06.9 Acute upper respiratory infection, unspecified
CPT/HCPCS: 99441

== ENCOUNTER 2023-10-04 14:35 | Outpatient (AMB) | payer MEDICARE, BC, SELFPAY ==
[2023-10-04 14:48] VITALS: BP 116/70; PULSE 77; O2SAT 98; BMI 22.3
--- NOTE | 2023-10-04 14:48 | A.OFFPC_ITS ---
"Vital Signs 10/04/23 14:48 Height 5 ft 5 in Weight 134 lb 4 oz BMI 22.3 BP 116/70 Blood Pressure Location Lt brachial Position Sitting Pulse 77 Pulse Source Pulse Oximeter Pulse Oximetry (%) 98 Oxygen Delivery Method Room Air Intake Visit Reasons: gerd Hospital Staff Pharmacist Required: No Accompanied by: Self / Same As Patient Allergies lisinopril [LISINOPRIL] Allergy (Intermediate, Verified 09/04/23 07:54) COUGH, constant cough simvastatin [SIMVASTATIN] Allergy (Mild, Verified 09/04/23 07:54) Confusion Medication List - Last Reconciled 10/04/23 by Chiara Diggs MD albuterol sulfate INHALE 2 VIALS (6ML) VIA NEBULIZER 4 TIMES A DAY NEEDED FOR WHEEZE/SHORTNESS OF BREATH albuterol sulfate 90 mcg/actuation 2 puffs PO Q4H PRN apixaban (Eliquis) 5 mg PO BID 90 days benzonatate 100 mg PO TID PRN budesonide-formoterol 80-4.5 mcg/actuation (Symbicort) 2 puffs inhalation BID cholecalciferol (vitamin D3) 50 mcg PO DAILY cyanocobalamin (vitamin B-12) 1,000 mcg PO DAILY cyclobenzaprine 10 mg PO BID PRN duloxetine 60 mg PO DAILY esomeprazole magnesium 40 mg PO DAILY famotidine 20 mg PO BEDTIME 90 days hydromorphone (Dilaudid) 4 mg PO Q4H PRN mesalamine ER 1.5 grams (4 x 0.375 gram) PO QAM montelukast (Singulair) 10 mg PO DAILY nebulizers (Aeroneb Go Nebulizer) As directed updraft treatment every 4 hours p.r.n. prochlorperazine maleate 5 mg PO TID PRN [THC oral drop 8 drops ] topiramate 50 mg PO DAILY PRN zolpidem 10 mg PO BEDTIME PRN 90 days Tobacco use date assessed: 03/15/23 Fall risk assessment: No Falls in past year Last assessed Fall Risk: 10/04/23 Dental Screening Dental Screen Date: 10/04/23 Did you have a dental visit in the last 12 months?: No Did you have a dental problem in the last 6 months where you did not have access to dental care?: No Was dental information given to patient?: Patient has dentist HPI gerd HPI Details 73-year-old female with multiple medical problems GERD, chronic low back pain recurrent major depression retroperitoneal malignancy history 2018 asthma atrial fibrillation coming in for follow-up. [facility] Medical History (Updated 08/29/23 @ 11:36 by Jo Ann Chase MD) Dysphagia Diarrhea Atrial fibrillation Atrial fibrillation with rapid ventricular response Acute respiratory failure Respiratory arrest Asthma exacerbation Radicular low back pain Polyarthralgia Scalp mass Colon cancer screening Breast cancer screening by mammogram RUQ pain Epigastric abdominal pain Chronic gastritis Chronic low back pain Tubular adenoma of colon Hypercholesterolemia Hypertension Vitamin D deficiency Asthma GERD (gastroesophageal reflux disease) Vitamin B12 deficiency Secondary malignant neoplasm of retroperitoneum and peritoneum History of DVT (deep vein thrombosis) Insomnia Surgical History History of excision of mass (~01/11/22) Hx of endoscopy History of colonoscopy Retroperitoneal liposarcoma History of nephroureterectomy History of back surgery History of section History of tubal ligation History of tonsillectomy Family History Father Myocardial infarction CVD (cardiovascular disease) Mother CVD (cardiovascular disease) Stroke Brother Myocardial infarction CVD (cardiovascular disease) Social History Household Members: Spouse and Family Housing: House Do you presently have visiting nurse or other home services: No Alcohol intake: never Patient Tobacco Use Status: Never used Tobacco e-Cigarette/Vaping Use: Never Used Second Hand Smoke Exposure: No Substance Use Type: Marijuana and Other service: No Current occupational status: retired Cognitive needs: No Hearing needs: No Vision needs: Yes Questionnaire Thrive Questionnaire Date Thrive assessed: 03/15/23 TYLER-7 AMB Questionnaire TYLER-7 Date TYLER - 7 assessed: 03/15/23 Source: Developed by Drs. Juventino Harper, Kaelyn Bruno, Ajay Briggs and colleagues, with an educational lake from [employer]. Physical exam (Primary Care) Vital Signs: Last Vital Signs Pulse 77 10/04/23 14:48 BP 116/70 10/04/23 14:48 Pulse Ox 98 10/04/23 14:48 Oxygen Delivery Method Room Air 10/04/23 14:48 BMI result Body Mass Index 22.3 Tobacco/Smoking Status: Tobacco use Status Tobacco use date assessed 03/15/23 10/04/23 14:54 Patient Tobacco Use Status Never used Tobacco 10/04/23 14:54 e-Cigarette/Vaping Use Never Used 10/04/23 14:54 Thrive Assessment: Date of Thrive Assessment Date Thrive assessed 03/15/23 10/04/23 14:54 Office Procedures Flu Questionnaire Does the patient have a severe egg allergy?: No Does the patient have severe life threatening allergies?: No Does the patient have a fever or illness today?: No Has the patient ever had Guillain-Crest[place] Syndrome?: No Has the patient ever had any past reaction to a flu shot?: No Immunizations flu vacc [id number] 6mos up(PF) 60 mcg(15 mcgx4)/0.5 mL IM syringe Performing Provider: Chiara Diggs MD Performing Location: [facility] Administered by: Jenise Matos CMA on 10/04/23 15:27 Dose Route Admin Location Dispensed Lot Number Expiration Date NDC Oil Gauger 0.5 mL IM Left Deltoid 0.5 mL [id number] 05/04/24 [id number] [employer] VIS Given Date VIS Provided VIS Publication Date 10/04/23 Single Vaccine 21 Eligibility Eligibility Date Funding Source Not [facility] Eligible 10/04/23 Private Assessment and Plan Assessment & Plan Orders: Orders Complete Blood Count Auto Diff Today I48.0 - Paroxysmal atrial fibrillation Thyroid Stimulating Hormone Today I48.0 - Paroxysmal atrial fibrillation Vitamin B12 and Folate Today I48.0 - Paroxysmal atrial fibrillation Vitamin D 25-OH Total Today I48.0 - Paroxysmal atrial fibrillation Comprehensive Met. Panel Today I48.0 - Paroxysmal atrial fibrillation Lipid Panel Today E78.00 - Pure hypercholesterolemia, unspecified, I48.0 - Paroxysmal atrial fibrillation Influenza [id number] Immunization Today Z23 - Encounter for immunization Coding Level of Care Code Est Pt Level 4 (50962)"
--- NOTE | 2023-10-04 14:54 | A.OFFPC_ITS ---
Vital Signs 10/04/23 14:48 Height 5 ft 5 in Weight 134 lb 4 oz BMI 22.3 BP 116/70 Blood Pressure Location Lt brachial Position Sitting Pulse 77 Pulse Source Pulse Oximeter Pulse Oximetry (%) 98 Oxygen Delivery Method Room Air Intake Visit Reasons: gerd Allergies lisinopril [LISINOPRIL] Allergy (Intermediate, Verified 09/04/23 07:54) COUGH, constant cough simvastatin [SIMVASTATIN] Allergy (Mild, Verified 09/04/23 07:54) Confusion Medication List - Last Reconciled 10/04/23 by Chiara Diggs MD albuterol sulfate INHALE 2 VIALS (6ML) VIA NEBULIZER 4 TIMES A DAY NEEDED FOR WHEEZE/SHORTNESS OF BREATH albuterol sulfate 90 mcg/actuation 2 puffs PO Q4H PRN apixaban (Eliquis) 5 mg PO BID 90 days benzonatate 100 mg PO TID PRN budesonide-formoterol 80-4.5 mcg/actuation (Symbicort) 2 puffs inhalation BID cholecalciferol (vitamin D3) 50 mcg PO DAILY cyanocobalamin (vitamin B-12) 1,000 mcg PO DAILY cyclobenzaprine 10 mg PO BID PRN duloxetine 60 mg PO DAILY esomeprazole magnesium 40 mg PO DAILY famotidine 20 mg PO BEDTIME 90 days hydromorphone (Dilaudid) 4 mg PO Q4H PRN mesalamine ER 1.5 grams (4 x 0.375 gram) PO QAM montelukast (Singulair) 10 mg PO DAILY nebulizers (Aeroneb Go Nebulizer) As directed updraft treatment every 4 hours p.r.n. prochlorperazine maleate 5 mg PO TID PRN [THC oral drop 8 drops ] topiramate 50 mg PO DAILY PRN zolpidem 10 mg PO BEDTIME PRN 90 days Tobacco use date assessed: 03/15/23 HPI gerd HPI Details 73-year-old female with a history of MELY D chronic low back pain recurrent major depression history of retroperitoneal cancer chronic anemia, asthma atrial fibrillation coming in for follow-up. Last seen in August 2023 recently for asthma exacerbation and was prescribed steroids antibiotic was also sent in. Mammogram is due, bone density up-to-date colonoscopy is up-to-date.. Patient has met with orthopedics for the trigger finger ordered occupational therapy. Patient also follows up with Gastroenterology patient has had diarrhea post surgery and patient has been placed on mesalamine MRI will be next week and will be going to [place] next week . PAin MGMT schulz = has seen marcelo and planneed changing to jaclyn [facility] Medical History (Updated 08/29/23 @ 11:36 by Jo Ann Chase MD) Dysphagia Diarrhea Atrial fibrillation Atrial fibrillation with rapid ventricular response Acute respiratory failure Respiratory arrest Asthma exacerbation Radicular low back pain Polyarthralgia Scalp mass Colon cancer screening Breast cancer screening by mammogram RUQ pain Epigastric abdominal pain Chronic gastritis Chronic low back pain Tubular adenoma of colon Hypercholesterolemia Hypertension Vitamin D deficiency Asthma GERD (gastroesophageal reflux disease) Vitamin B12 deficiency Secondary malignant neoplasm of retroperitoneum and peritoneum History of DVT (deep vein thrombosis) Insomnia Surgical History History of excision of mass (~01/11/22) Hx of endoscopy History of colonoscopy Retroperitoneal liposarcoma History of nephroureterectomy History of back surgery History of section History of tubal ligation History of tonsillectomy Family History Father Myocardial infarction CVD (cardiovascular disease) Mother CVD (cardiovascular disease) Stroke Brother Myocardial infarction CVD (cardiovascular disease) Social History Household Members: Spouse and Family Housing: House Do you presently have visiting nurse or other home services: No Alcohol intake: never Patient Tobacco Use Status: Never used Tobacco e-Cigarette/Vaping Use: Never Used Second Hand Smoke Exposure: No Substance Use Type: Marijuana and Other service: No Current occupational status: retired Cognitive needs: No Hearing needs: No Vision needs: Yes Questionnaire Thrive Questionnaire Date Thrive assessed: 03/15/23 TYLER-7 AMB Questionnaire TYLER-7 Date TYLER - 7 assessed: 03/15/23 Source: Developed by Drs. Juventino Harper, Kaelyn Bruno, Ajay Briggs and colleagues, with an educational lake from [employer]. Physical exam (Primary Care) Vital Signs: Last Vital Signs Pulse 77 10/04/23 14:48 BP 116/70 10/04/23 14:48 Pulse Ox 98 10/04/23 14:48 Oxygen Delivery Method Room Air 10/04/23 14:48 BMI result Body Mass Index 22.3 Tobacco/Smoking Status: Tobacco use Status Tobacco use date assessed 03/15/23 10/04/23 14:54 Patient Tobacco Use Status Never used Tobacco 10/04/23 14:54 e-Cigarette/Vaping Use Never Used 10/04/23 14:54 Thrive Assessment: Date of Thrive Assessment Date Thrive assessed 03/15/23 10/04/23 14:54 Const General: alert; No acute distress Eyes Conjunctivae: conjunctivae normal Resp Auscultation: clear to auscultation bilaterally Cardio Rate: regular rate Rhythm: regular rhythm GI Inspection: Yes normal to inspection Extrem General: Yes normal to inspection and No edema Assessment and Plan Assessment & Plan (1) GERD (gastroesophageal reflux disease): Code(s): K21.9 - Gastro-esophageal reflux disease without esophagitis Qualifiers: Esophagitis presence: without esophagitis Qualified Code(s): K21.9 - Gastro-esophageal reflux disease without esophagitis Plan: Avoid the foods that causes that usually spicy foods, tomato products, juices, coffee, soda and foods that your sensitive to. After eating do not lie down, allow 3-4 hours before in lie down. And keep the head of bed above 30 degrees to avoid the acid from going up. Patient is on esomeprazole 40 mg once a day and famotidine 20 mg once a day (2) Chronic low back pain: Comment: X2 [address] Harrison Code(s): M54.5 - Low back pain; G89.29 - Other chronic pain Plan: Discussed about keeping active patient on pain medication (3) Recurrent major depression: Comment: Private counsellor Code(s): F33.9 - Major depressive disorder, recurrent, unspecified Plan: Continue with counseling and therapy takes duloxetine 60 mg once a day (4) Secondary malignant neoplasm of retroperitoneum and peritoneum: Comment: retroperitoneal mass biopsy spindle cell neoplasm July 2018 right retroperitoneal liposarcoma radiation and radical abdominal resection November 2018, right nephroureterectomy right right drip throw peritoneal sarcoma resection right adrenalectomy, right colectomy with primary anastomosis small- bowel resection duodenal patch with ileum over 1/3 duodenum SMV thrombosis lysis of her adhesions small-bowel resection ileocolic, retrocolic, gastrojejunostomy, gastric J-tube placement mar 25 2019 Code(s): C78.6 - Secondary malignant neoplasm of retroperitoneum and peritoneum Plan: Continue to monitor (5) Anemia: Code(s): D64.9 - Anemia, unspecified Plan: Stable (6) PAF (paroxysmal atrial fibrillation): Code(s): I48.0 - Paroxysmal atrial fibrillation Plan: Continue with anticoagulation Orders: Orders Complete Blood Count Auto Diff Today I48.0 - Paroxysmal atrial fibrillation Thyroid Stimulating Hormone Today I48.0 - Paroxysmal atrial fibrillation Vitamin B12 and Folate Today I48.0 - Paroxysmal atrial fibrillation Vitamin D 25-OH Total Today I48.0 - Paroxysmal atrial fibrillation Comprehensive Met. Panel Today I48.0 - Paroxysmal atrial fibrillation Lipid Panel Today E78.00 - Pure hypercholesterolemia, unspecified, I48.0 - Paroxysmal atrial fibrillation Coding Level of Care Code Est Pt Level 4 (82454) Diagnoses Gastroesophageal reflux disease without esophagitis K21.9 Esophagitis presence: without esophagitis Chronic low back pain M54.5; G89.29 Recurrent major depression F33.9 Secondary malignant neoplasm of retroperitoneum and peritoneum C78.6 Anemia D64.9 PAF (paroxysmal atrial fibrillation) I48.0
== END 2023-10-04 15:33 | disposition home or self-care (01) ==
PROVIDERS: PCP Internal Medicine; Visit Provider Internal Medicine
DX: Z23 Encounter for immunization (principal); K21.9 Gastro-esophageal reflux disease without esophagitis; M54.50 Low back pain, unspecified; G89.29 Other chronic pain; F33.9 Major depressive disorder, recurrent, unspecified; C78.6 Secondary malignant neoplasm of retroperitoneum and peritoneum; D64.9 Anemia, unspecified; I48.0 Paroxysmal atrial fibrillation
CPT/HCPCS: 90471; 90686; 99214

== ENCOUNTER 2023-10-10 17:37 | Outpatient (REF) | payer MEDICARE, BC, SELFPAY ==
--- NOTE | ~2023-10-10 | MR_ITS ---
MR LUMBAR SPINE WITHOUT CONTRAST CLINICAL INFORMATION: Chronic pain. COMPARISON: Lumbar spine MRI 05/23/2018. TECHNIQUE: MRI of the lumbar spine was obtained using routine sequences without contrast. FINDINGS: There are 5 nonrib-bearing lumbar-type vertebral bodies. There is similar grade 1 retrolisthesis of L1 on L2 and L2 on L3. There is progressive grade 2 degenerative anterolisthesis of L4 on L5. There are Modic type I endplate signal changes at L2-L3. There is bone marrow edema within the left L4-L5 facets that is most likely degenerative/inflammatory. There are no acute fractures and there are no acute subluxations. There are multilevel endplate osteophytes. Progressive moderate to severe disc volume loss at L2-L3 and moderate disc volume loss at L1-L2 and L4-L5. Similar severe disc volume loss at L5-S1. There is disc desiccation at all lumbar levels. Conus terminates at the T12-L1 level. Right-sided nephrectomy changes partially imaged. L1-L2: Grade 1 retrolisthesis. Right paracentral/right lateral disc osteophyte protrusion results in similar mass effect on the traversing right L2 nerve root within the right subarticular zone and similar mild right-sided foraminal encroachment. Moderate bilateral facet arthropathy and ligamentum flavum thickening. L2-L3: Grade 1 retrolisthesis. Diffuse annular disc bulge that is in part disc osteophyte and moderate bilateral facet arthropathy and ligamentum flavum thickening. Findings in concert result in worsening moderate central canal stenosis, bilateral subarticular zone stenosis with compression of the traversing L3 nerve roots bilaterally, and mild to moderate bilateral foraminal stenosis. L3-L4: Diffuse annular disc bulge and severe bilateral facet arthropathy and ligamentum flavum thickening. Findings in concert result in mild narrowing of the central canal and mild bilateral foraminal encroachment. L4-L5: There is grade 2 degenerative anterolisthesis. There are right hemilaminectomy changes. Severe bilateral facet arthropathy and ligamentum flavum thickening. Findings in concert result in significantly worsening severe central canal stenosis and worsening moderate bilateral foraminal stenosis. L5-S1: Diffuse disc osteophyte complex. Left hemilaminectomy changes. Moderate bilateral facet arthropathy. Scar tissue within the left subarticular zone remains inseparable from the traversing left S1 nerve root. Disc osteophyte and facet arthropathy result in mild bilateral foraminal encroachment. MR/MR lumbar spine wo con IMPRESSION: - At L1-L2, a right paracentral disc osteophyte protrusion results in similar mass effect on the traversing right L2 nerve root within the right subarticular zone. - At L2-L3, grade 1 retrolisthesis and progressive advanced multifactorial degenerative changes result in worsening moderate central canal stenosis, bilateral subarticular zone stenosis with compression of the traversing L3 nerve roots bilaterally, and mild to moderate bilateral foraminal stenosis. Modic type I marrow signal changes at L1-L2. - At L4-L5, worsening grade 2 degenerative anterolisthesis and advanced multifactorial degenerative changes result in worsening severe central canal stenosis and worsening moderate bilateral foraminal stenosis. Right hemilaminectomy changes at this level. There is bone marrow edema within the left L4-L5 facets that is most likely degenerative/inflammatory. - At L5-S1, there are left hemilaminectomy changes and there is similar scar tissue inseparable from the traversing left S1 nerve root. - Right nephrectomy changes.
== END 2023-10-10 17:38 | disposition home or self-care (01) ==
LOC: HO.MRI 17:37
PROVIDERS: PCP Internal Medicine; Visit Provider Internal Medicine
DX: M54.50 Low back pain, unspecified (principal); G89.29 Other chronic pain
CPT/HCPCS: 72148

== ENCOUNTER 2024-01-11 10:51 | Outpatient (AMB) | payer MEDICARE, BC, SELFPAY ==
[2024-01-11 10:52] VITALS: BP 116/64; PULSE 74; O2SAT 98; BMI 22.0
--- NOTE | 2024-01-11 10:52 | MHC.PC.OV ---
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 Colonoscopy is due, bone density is due and mammogram is due. With the chronic low back pain an MRI was done showing multiple problems. L1-L2 paracentral disc protrusion mass effect on the traversing right L2 nerve root L2-L3 retrolisthesis grade 1 advanced multifactorial degenerative changes moderate send trial canal stenosis compressing on the L3 nerve root bilaterally L4-L5 grade 2 degenerative anterolisthesis advanced multifactorial degenerative changes severe central canal stenosis right hemilaminectomy changes bone marrow edema L4-L5 facets L5-S1 left hemilaminectomy changes similar scar tissue inseparable from the traversing left S1 nerve root. ON LICENSE OF [facility] Medical History (Updated 01/11/24 @ 11:43 by Chiara Diggs MD) Atrial fibrillation Dysphagia Diarrhea Atrial fibrillation with rapid ventricular response Acute respiratory failure Respiratory arrest Asthma exacerbation Radicular low back pain Polyarthralgia Scalp mass Colon cancer screening Breast cancer screening by mammogram RUQ pain Epigastric abdominal pain Chronic gastritis Chronic low back pain Tubular adenoma of colon Hypercholesterolemia Hypertension Vitamin D deficiency Asthma GERD (gastroesophageal reflux disease) Vitamin B12 deficiency Secondary malignant neoplasm of retroperitoneum and peritoneum History of DVT (deep vein thrombosis) Insomnia Surgical History History of excision of mass (~01/11/22) Hx of endoscopy History of colonoscopy Retroperitoneal liposarcoma History of nephroureterectomy History of back surgery History of section History of tubal ligation History of tonsillectomy Family History Father Myocardial infarction CVD (cardiovascular disease) Mother CVD (cardiovascular disease) Stroke Brother Myocardial infarction CVD (cardiovascular disease) Social History Household Members: Spouse and Family Housing: House Do you presently have visiting nurse or other home services: No Alcohol intake: never Patient Tobacco Use Status: Never used Tobacco e-Cigarette/Vaping Use: Never Used Second Hand Smoke Exposure: No Substance Use Type: Marijuana and Other service: No Current occupational status: retired Cognitive needs: No Hearing needs: No Vision needs: Yes Questionnaire Thrive Questionnaire Date Thrive assessed: 03/15/23 AUDIT C Alcohol Use Questionnaire (AUDIT-C) 1. How often do you have a drink containing alcohol?: Never 3. How often do you have six or more drinks on one occasion?: Never Total Score: 0 TYLER-7 AMB Questionnaire TYLER-7 Date TYLER - 7 assessed: 01/11/24 Source: Developed by Drs. Juventino Harper, Kaelyn Bruno, Ajay Briggs and colleagues, with an educational lake from [employer]. Physical exam (Primary Care) Vital Signs: Last Vital Signs Pulse 74 01/11/24 10:52 BP 116/64 01/11/24 10:52 Pulse Ox 98 01/11/24 10:52 Oxygen Delivery Method Room Air 01/11/24 10:52 BMI result Body Mass Index 22.0 Tobacco/Smoking Status: Tobacco use Status Tobacco use date assessed 01/11/24 01/11/24 10:53 Patient Tobacco Use Status Never used Tobacco 01/11/24 10:53 e-Cigarette/Vaping Use Never Used 01/11/24 10:53 Thrive Assessment: Date of Thrive Assessment Date Thrive assessed 03/15/23 01/11/24 10:53 Const General: alert; No acute distress Eyes Conjunctivae: conjunctivae normal Resp Auscultation: clear to auscultation bilaterally Cardio Rate: regular rate Rhythm: regular rhythm GI Inspection: Yes normal to inspection Extrem General: Yes normal to inspection and No edema Assessment and Plan Assessment & Plan (1) Lumbar degenerative disc disease: Comment: October [id number] [id number] Magnetic Resonance Report Signed Patient: Maru Patel MR#: [id number] : 1950 Acct:[id number] Age/Sex: 73 / F ADM Date: 10/10/23 Loc: HO.MRI Attending Dr: Chiara Diggs MD Ordering Physician: Chiara Diggs MD Date of Service: 10/10/23 Procedure(s): MR lumbar spine wo con Accession Number(s): [id number] cc: Chiara Diggs MD~ MR LUMBAR SPINE WITHOUT CONTRAST CLINICAL INFORMATION: Chronic pain. COMPARISON: Lumbar spine MRI 05/23/2018. TECHNIQUE: MRI of the lumbar spine was obtained using routine sequences without contrast. FINDINGS: There are 5 nonrib-bearing lumbar-type vertebral bodies. There is similar grade 1 retrolisthesis of L1 on L2 and L2 on L3. There is progressive grade 2 degenerative anterolisthesis of L4 on L5. There are Modic type I endplate signal changes at L2-L3. There is bone marrow edema within the left L4-L5 facets that is most likely degenerative/inflammatory. There are no acute fractures and there are no acute subluxations. There are multilevel endplate osteophytes. Progressive moderate to severe disc volume loss at L2-L3 and moderate disc volume loss at L1-L2 and L4-L5. Similar severe disc volume loss at L5-S1. There is disc desiccation at all lumbar levels. Conus terminates at the T12-L1 level. Right-sided nephrectomy changes partially imaged. L1-L2: Grade 1 retrolisthesis. Right paracentral/right lateral disc osteophyte protrusion results in similar mass effect on the traversing right L2 nerve root within the right subarticular zone and similar mild right-sided foraminal encroachment. Moderate bilateral facet arthropathy and ligamentum flavum thickening. L2-L3: Grade 1 retrolisthesis. Diffuse annular disc bulge that is in part disc osteophyte and moderate bilateral facet arthropathy and ligamentum flavum thickening. Findings in concert result in worsening moderate central canal stenosis, bilateral subarticular zone stenosis with compression of the traversing L3 nerve roots bilaterally, and mild to moderate bilateral foraminal stenosis. L3-L4: Diffuse annular disc bulge and severe bilateral facet arthropathy and ligamentum flavum thickening. Findings in concert result in mild narrowing of the central canal and mild bilateral foraminal encroachment. L4-L5: There is grade 2 degenerative anterolisthesis. There are right hemilaminectomy changes. Severe bilateral facet arthropathy and ligamentum flavum thickening. Findings in concert result in significantly worsening severe central canal stenosis and worsening moderate bilateral foraminal stenosis. L5-S1: Diffuse disc osteophyte complex. Left hemilaminectomy changes. Moderate bilateral facet arthropathy. Scar tissue within the left subarticular zone remains inseparable from the traversing left S1 nerve root. Disc osteophyte and facet arthropathy result in mild bilateral foraminal encroachment. MR/MR lumbar spine wo con IMPRESSION: - At L1-L2, a right paracentral disc osteophyte protrusion results in similar mass effect on the traversing right L2 nerve root within the right subarticular zone. - At L2-L3, grade 1 retrolisthesis and progressive advanced multifactorial degenerative changes result in worsening moderate central canal stenosis, bilateral subarticular zone stenosis with compression of the traversing L3 nerve roots bilaterally, and mild to moderate bilateral foraminal stenosis. Modic type I marrow signal changes at L1-L2. - At L4-L5, worsening grade 2 degenerative anterolisthesis and advanced multifactorial degenerative changes result in worsening severe central canal stenosis and worsening moderate bilateral foraminal stenosis. Right hemilaminectomy changes at this level. There is bone marrow edema within the left L4-L5 facets that is most likely degenerative/inflammatory. - At L5-S1, there are left hemilaminectomy changes and there is similar scar tissue inseparable from the traversing left S1 nerve root. Code(s): M51.36 - Other intervertebral disc degeneration, lumbar region (2) Recurrent major depression: Comment: Private counsellor Code(s): F33.9 - Major depressive disorder, recurrent, unspecified Plan: Continue with present medication and counseling (3) Atrial fibrillation: Code(s): I48.91 - Unspecified atrial fibrillation Plan: Has been seen by Cardiology and as for atrial fibrillation has not seen it reoccur. The last atrial fibrillation was post cardiac arrest. 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 Will refer to Hematology Oncology as the patient wants to get off of anticoagulation Orders: Referrals Hematology & Oncology Referral C78.6 - Secondary malignant neoplasm of retroperitoneum and peritoneum Neurosurgery Referral M51.36 - Other intervertebral disc degeneration, lumbar region Coding Level of Care Code Est Pt Level 4 (56103) Diagnoses Lumbar degenerative disc disease M51.36 Recurrent major depression F33.9 Atrial fibrillation I48.91 Secondary malignant neoplasm of retroperitoneum and peritoneum C78.6
== END 2024-01-11 12:03 | disposition home or self-care (01) ==
PROVIDERS: PCP Internal Medicine; Visit Provider Internal Medicine
DX: M51.36 Other intervertebral disc degeneration, lumbar region (principal); F33.9 Major depressive disorder, recurrent, unspecified; I48.91 Unspecified atrial fibrillation; C78.6 Secondary malignant neoplasm of retroperitoneum and peritoneum
CPT/HCPCS: 99214

== ENCOUNTER 2024-01-23 13:56 | Outpatient (REF) | payer MEDICARE, BC, SELFPAY ==
--- NOTE | ~2024-01-23 | XR_ITS ---
EXAMINATION: XR LUMBOSACRAL SPINE WITH OBLIQUES CLINICAL INFORMATION: Spondylolisthesis. COMPARISON: MRI lumbar spine 10/10/2023, radiographs lumbar spine 01/16/2018. TECHNIQUE: 4 views of the lumbar spine inclusive of flexion and extension views. FINDINGS: The bones are diffusely demineralized. Degenerative changes in the imaged lower thoracic spine. Surgical sutures overlie the right lower quadrant. Atherosclerotic aortoiliac calcifications. Facet arthritis in the lower lumbar spine. Grade 1 retrolisthesis of L1 on L2 and L2 on L3. Grade 1-2 anterolisthesis of L4 on L5. Advanced multilevel degenerative changes with loss of disc space height, most notable at L2-L3, L4-L5, and L5-S1. XR/XR lumbar spine 4V min IMPRESSION: 1. Advanced multilevel degenerative disc disease most notable at L2-L3, L4-L5 and L5-S1. 2. Facet arthritis in the lower lumbar spine. 3. Grade 1 retrolisthesis of L1 on L2 and L2 on L3. Grade 1-2 anterolisthesis of L4 on L5.
== END 2024-01-23 13:57 | disposition home or self-care (01) ==
LOC: HO.HOSX 13:56
PROVIDERS: PCP Internal Medicine; Visit Provider Physician Assistant
DX: M43.10 Spondylolisthesis, site unspecified (principal)
CPT/HCPCS: 72110; 99202

== ENCOUNTER 2024-01-23 13:56 | Outpatient (AMB) | payer MEDICARE, BC, SELFPAY ==
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
== END 2024-01-23 15:13 | disposition home or self-care (01) ==
PROVIDERS: PCP Internal Medicine; Referring Provider Internal Medicine; Visit Provider Physician Assistant
DX: M43.10 Spondylolisthesis, site unspecified (principal)
CPT/HCPCS: 99204

== ENCOUNTER 2024-01-28 11:19 | Outpatient (AMB) | payer MEDICARE, BC, SELFPAY ==
--- NOTE | 2024-01-28 11:19 | MHC.OFFVIS ---
Intake Intake Visit Reasons: 4 month follow up Intake Note: Maru presents as a video call today 4 month follow up. CC: she states that she is not having any concerns at this time. 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 being seen for f/u RECAP: index visit 02/2020 After she eats she feels full and it hurts pain is like an overating feeling, 04/14 severity, she waits for it to pass going on since Nov 2018 after right nephrectomy, partial colectomy, adrenal gland then had redo surgery March 2019 for obstruction she has diarrhea since surgery, no exacerbating or relieving factors, maybe worse with ice creams or sausage weight loss 70# over last year, she also takes fentanyl patch and dilaudid since Nov 2018 TESTS: colonoscopy 2009--polyp removed, tics plan was for EGD and GES but due to covid fears she wanted to hold, she was given trial fo movantik and cholestyramine finally had GES 05/2020-- normal at 4 hrs, slightly fast at 1 hr EGD 07/2020--- inflammed anastomotic rim bx gastric nodule, chronic inflammation, ulcerated, chronic inflammation stomach, fundic gland polyp, US 01/17/21--gallstones HIDA scan: 03/25- EF 32%, no acute cholecystitis she was taking movantik but stopped it as it made her go more often to toilet she was unabel to take cholestyramine due to need to take 4 hrs before meds was given trial of sucralfate advised on small freq meals, more fiber in diet I had increased PPI due to ongoing abdo pain she was holding off on GB surgery due to high risks miguelina given prior hx of surgeries, although she was having RUQ pain I gave her bentyl to see if would help she had ongoing RUQ pain, worse after eating a meal--given dilaudid by pain clinic EGD/colonoscopy:01/11/22 Endoscopy Findings: bile acid reflux related gastritis esophagitis esophageal strictures Colonoscopy Findings: polyp internal hemorrhoids diverticular disease balloon was done with small tear at LES Path: tubular adenoma focal enteritis esophagitis INTERIM: swallowing has gotten better she never got the manometry, they never called her back to r/s and she does not want to go thru with that at this time still taking dilaudid 4 mg TID waiting for back surgery she still takes mesalamine and she feels it helps her stools --more formed now no vomiting, occ nausea not taking omeprazole anymore Assessment & Plan (1) Chronic gastritis: 2/ ?GB dyskinesia 2/2 opiates 3/ diarrhea, post prandial, much better with mesalamine 4/ swallowing issues maybe related to gERD and opiate use--improved 5/ tubular adenoma PLAN: 1/ cont with mesalamine 2/ refilled on PPI, 3/ hold on manometry per her reuest at this time, [facility] Medical History Atrial fibrillation Dysphagia Diarrhea Atrial fibrillation with rapid ventricular response Acute respiratory failure Respiratory arrest Asthma exacerbation Radicular low back pain Polyarthralgia Scalp mass Colon cancer screening Breast cancer screening by mammogram RUQ pain Epigastric abdominal pain Chronic gastritis Chronic low back pain Tubular adenoma of colon Hypercholesterolemia Hypertension Vitamin D deficiency Asthma GERD (gastroesophageal reflux disease) Vitamin B12 deficiency Secondary malignant neoplasm of retroperitoneum and peritoneum History of DVT (deep vein thrombosis) Insomnia Surgical History History of excision of mass (~01/11/22) Hx of endoscopy History of colonoscopy Retroperitoneal liposarcoma History of nephroureterectomy History of back surgery History of section History of tubal ligation History of tonsillectomy Family History Father Myocardial infarction CVD (cardiovascular disease) Mother CVD (cardiovascular disease) Stroke Brother Myocardial infarction CVD (cardiovascular disease) Social History Household Members: Spouse and Family Housing: House Do you presently have visiting nurse or other home services: No Alcohol intake: never Patient Tobacco Use Status: Never used Tobacco e-Cigarette/Vaping Use: Never Used Second Hand Smoke Exposure: No Substance Use Type: Marijuana and Other service: No Current occupational status: retired Cognitive needs: No Hearing needs: No Vision needs: Yes Assessment & Plan Assessment & Plan (1) Diarrhea: Code(s): R19.7 - Diarrhea, unspecified Plan: (1) Chronic gastritis: 2/ ?GB dyskinesia 2/2 opiates 3/ diarrhea, post prandial, much better with mesalamine 4/ swallowing issues maybe related to gERD and opiate use--improved 5/ tubular adenoma PLAN: 1/ cont with mesalamine 2/ refilled on PPI, 3/ hold on manometry per her reuqest at this time, Medications: Refilled esomeprazole magnesium 40 mg PO DAILY 90 caps 1RF Telehealth Telehealth Location of provider rendering services: practice address Location of patient: address on file Patient Identification confirmed using: Name, : Yes Telehealth method: voice only Patient verbally consented to treatment: Yes Patient verbally consented to billing insurance company: Yes Patient informed of any privacy concerns related to visit: Yes Minutes spent on Phone/Video with Pt.: 8 Coding Level of Care Code Tele Est Pt Level 3 (84676) Diagnoses Diarrhea R19.7
== END 2024-01-28 12:46 | disposition home or self-care (01) ==
LOC: HO.HGI 11:19
PROVIDERS: PCP Internal Medicine; Visit Provider Internal Medicine Gastroenterology
DX: R19.7 Diarrhea, unspecified (principal); K29.70 Gastritis, unspecified, without bleeding
CPT/HCPCS: 99441

== ENCOUNTER → 2024-01-28 11:19 | Outpatient (BNVA) | payer MEDICARE, BC, SELFPAY | PROVIDERS: PCP Internal Medicine; Visit Provider Internal Medicine Gastroenterology ==

== ENCOUNTER 2024-01-30 12:46 | Outpatient (AMB) | payer MEDICARE, BC, SELFPAY ==
--- NOTE | 2024-01-30 13:01 | HO.SPINEOV ---
Intake Intake Visit Reasons: spondylolisthesis Intake Note: Ms. Patel is here today to discuss sx. 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 To recap she had an MRI completed here at [facility] that showed a grade 2 spondylolisthesis at L4-5, and a grade 1 spondylolisthesis at L2-3. I reviewed the patient's medical history with Dr. Cullen, which includes a diagnosis of osteopenia (T score -2.1), prior total nephrectomy post renal cell cancer with post cancer clotting causing her to be on chronic apixaban therapy, and long-term pain medication use via Dilaudid. After reviewing her imaging and history Dr. Cullen decided the patient is not a surgical candidate at this time. She was encouraged to continue seeking follow-up care via our colleagues at pain management, I completed a referral for her today. I would like her to be evaluated for potential injections at L4-5 where she has the grade 2 spondylolisthesis. This is the most likely sawyer of her intractable low back pain. I also strongly encouraged her to follow up with her primary care physician regarding osteopenia management. She is understandable of this, and agrees to follow up with pain management. Total amount of time spent in this visit was 20 minutes in discussion of symptoms, MRI imaging results and subsequent plan of care Renny Cullen MD,PhD [facility] Coding Level of Care Code Est Pt Level 3 (05595) Diagnoses Spondylolisthesis of lumbar region M43.16 Spinal region: lumbar
== END 2024-01-30 13:23 | disposition home or self-care (01) ==
PROVIDERS: PCP Internal Medicine; Visit Provider Physician Assistant
DX: M43.16 Spondylolisthesis, lumbar region (principal)
CPT/HCPCS: 99213

== ENCOUNTER → 2024-01-30 12:46 | Outpatient (BNVA) | payer MEDICARE, BC, SELFPAY | PROVIDERS: PCP Internal Medicine; Visit Provider Physician Assistant | DX: M43.16 Spondylolisthesis, lumbar region (principal) | CPT/HCPCS: 99212 ==

== ENCOUNTER 2024-02-13 13:47 | Outpatient (AMB) | payer MEDICARE, BC, SELFPAY ==
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
[2024-02-13 14:10] VITALS: BP 124/98; PULSE 77; RESP 18; O2SAT 98; BMI 21.7
== END 2024-02-13 14:34 | disposition home or self-care (01) ==
PROVIDERS: PCP Internal Medicine; Visit Provider Registered Nurse Emergency
DX: M43.16 Spondylolisthesis, lumbar region (principal); M51.36 Other intervertebral disc degeneration, lumbar region
CPT/HCPCS: 99204

== ENCOUNTER → 2024-02-13 13:47 | Outpatient (BNVA) | payer MEDICARE, BC, SELFPAY | PROVIDERS: PCP Internal Medicine; Visit Provider Registered Nurse Emergency | DX: M43.16 Spondylolisthesis, lumbar region (principal); M51.36 Other intervertebral disc degeneration, lumbar region | CPT/HCPCS: 99202 ==

== ENCOUNTER → 2024-02-27 13:33 | Outpatient (BNV) | payer MEDICARE, BC, SELFPAY | PROVIDERS: PCP Internal Medicine; Visit Provider Internal Medicine | DX: Z86.718 Personal history of other venous thrombosis and embolism (principal) | CPT/HCPCS: 99204 ==

== ENCOUNTER 2024-04-01 06:16 | Outpatient (REF) | payer MEDICARE, BC, SELFPAY ==
--- NOTE | ~2024-04-01 | FL_ITS ---
EXAMINATION: XR FLUOROSCOPY WITH IMAGES CLINICAL INFORMATION: Spondylolisthesis, lumbar region. COMPARISON: Lumbar spine radiographs 01/23/2024. TECHNIQUE: Fluoroscopy Supervised By: Dr. Read. Fluoroscopy Time: 0.6 min. Cumulative Dose: 5.57 mGy. DAP: 0.0968 Gycm2. Images: 13. FINDINGS: Intraoperative fluoroscopy and spot films were performed during a procedure in the OR. Needle placement is seen for presumed transforaminal epidural steroid injection at 3 consecutive levels in the lower lumbosacral spine. Degenerative changes are present. Please see Dr. Read's report for complete details. FL/FL guidance in treatment room IMPRESSION: Intraoperative fluoroscopy and spot films were obtained. Please see Dr. Read's report for complete details.
== END 2024-04-01 06:17 | disposition home or self-care (01) ==
LOC: CF 06:16
PROVIDERS: Visit Provider Anesthesiology
DX: M43.16 Spondylolisthesis, lumbar region (principal); M47.816 Spondylosis without myelopathy or radiculopathy, lumbar region
CPT/HCPCS: 64493; 64494; J2795; Q9967

== ENCOUNTER 2024-04-01 12:50 | Outpatient (AMB) | payer MEDICARE, BC, SELFPAY ==
--- NOTE | 2024-04-01 13:24 | A.OFFVIS_ITS ---
Vital Signs 04/01/24 14:05 04/01/24 14:07 Height 5 ft 5 in Weight 132 lb BMI 22.0 BP 120/70 134/88 Blood Pressure Location Lt brachial Lt brachial Position Sitting Sitting Respiration 18 18 Pulse 67 72 Pulse Source Pulse Oximeter Pulse Oximeter Pulse Oximetry (%) 99 98 Oxygen Delivery Method Room Air Room Air Comment Pre-op Post-Op Intake Visit Reasons: Flavio Dx L3-L4-DR-L5 MBB Allergies lisinopril [LISINOPRIL] Allergy (Intermediate, Verified 02/27/24 14:09) COUGH, constant cough simvastatin [SIMVASTATIN] Allergy (Mild, Verified 02/27/24 14:09) Confusion PFSH Medical History Atrial fibrillation Dysphagia Diarrhea Atrial fibrillation with rapid ventricular response Acute respiratory failure Respiratory arrest Asthma exacerbation Radicular low back pain Polyarthralgia Scalp mass Colon cancer screening Breast cancer screening by mammogram RUQ pain Epigastric abdominal pain Chronic gastritis Chronic low back pain Tubular adenoma of colon Hypercholesterolemia Hypertension Vitamin D deficiency Asthma GERD (gastroesophageal reflux disease) Vitamin B12 deficiency Secondary malignant neoplasm of retroperitoneum and peritoneum History of DVT (deep vein thrombosis) Insomnia Surgical History History of excision of mass (~01/11/22) Hx of endoscopy History of colonoscopy Retroperitoneal liposarcoma History of nephroureterectomy History of back surgery History of section History of tubal ligation History of tonsillectomy Family History Father Myocardial infarction CVD (cardiovascular disease) Mother CVD (cardiovascular disease) Stroke Brother Myocardial infarction CVD (cardiovascular disease) Social History (Updated 02/27/24 @ 14:25 by Ellie Gaona) Household Members: Spouse and Family Housing: House Do you presently have visiting nurse or other home services: No Alcohol intake: never Patient Tobacco Use Status: Never used Tobacco e-Cigarette/Vaping Use: Never Used Second Hand Smoke Exposure: No Substance Use Type: Marijuana and Other service: No Current occupational status: retired Cognitive needs: No Hearing needs: No Vision needs: Yes Physical Exam Vital Signs: Last Vital Signs Pulse 72 04/01/24 14:07 Resp 18 04/01/24 14:07 BP 134/88 04/01/24 14:07 Pulse Ox 98 04/01/24 14:07 Oxygen Delivery Method Room Air 04/01/24 14:07 BMI result Body Mass Index 22.0 Assessment & Plan Assessment & Plan (1) Spondylolisthesis: Code(s): M43.10 - Spondylolisthesis, site unspecified Category: Medical Qualifiers: Spinal region: lumbar Qualified Code(s): M43.16 - Spondylolisthesis, lumbar region (2) Lumbar degenerative disc disease: Comment: Code(s): M51.36 - Other intervertebral disc degeneration, lumbar region Category: Medical Plan: Diagnostic medial branch block L3,L4 dorsal ramus L5 bilateral.? ? ?Informed consent was explained to the patient. All questions were explained and? answered.? The patient was taken inside the operating room where she was positioned prone on the operating table. Time-out was performed delineating correct site, side, the nature of the procedure, patient's allergy, . All operating room staff was participating in OR time-out procedure. ? ? The lower back was prepped with ChloraPrep and draped with sterile towels.? C- arm was brought over the operating field and sq picture of L4-, L5 vertebra and S1 AREA were delineated on the screen.? Point of interest were delineated as confluence of superior articular process of L4 and L5 vertebra bilaterally with corresponding transverse processes as well as confluence of the sacral alae bilaterally with superior articular process of S1.? The projection of the point of interest to the skin were injected with the small amount of local anesthetic lidocaine 2% 1-1.5 cc.? After that 22 gauge 3.5 inch spinal needle was driven sequentially to the points of interest in tunnel vision fashion. After needles gently contacted the bone at the point of interests the needle was injected with small amount of the contrast.? The injection of the contrast did not demonstrate any intravascular or intrathecal spread of the contrast.? After that injection of the? ropivacaine 0.5%-1cc was performed at each needle location.??after that the needles were removed and Bandaids were applied. ? Upon completion of the injections? needle was? removed and sterile Band-Aids were applied.? The patient tolerated procedure very well. Mandy Mahoney is a very pleasant 73-year-old female who presented to the office today for evaluation management of her chronic back pain History, physical exam and provocative testing consistent with lumbar spondylosis Patient has exhausted conservative therapy including greater than 6 months of PT, home exercise program, muscle relaxers, [id number] medications, heat, ice and lidocaine patches all without improvement of her symptoms. Patient status post nephrectomy, unable to take nonsteroidal anti-inflammatory medications. Discussed options for treatment including diagnostic interventional testing, epidural steroid injections, peripheral nerve stimulation with Sprint, RFA and more permanent neuromodulation. Informational pamphlets provided. We will schedule for bilateral fluoroscopy guided diagnostic L3-L4 DR L5 medial branch blocks with local anesthetic. All questions and concerns have been answered and patient agrees with the plan. Follow up after injections and sooner if needed. Orders: Orders FL guidance in treatment room Today M43.16 - Spondylolisthesis, lumbar region Coding Level of Care Code Procedure Only Diagnoses Spondylolisthesis of lumbar region M43.16 Spinal region: lumbar Lumbar degenerative disc disease M51.36
[2024-04-01 14:05] VITALS: BP 120/70; PULSE 67; RESP 18; O2SAT 99; BMI 22.0
[2024-04-01 14:07] VITALS: BP 134/88; PULSE 72; RESP 18; O2SAT 98
== END 2024-04-01 14:22 | disposition home or self-care (01) ==
LOC: HO.PMCPRC 12:50
PROVIDERS: PCP Internal Medicine; Visit Provider Anesthesiology
DX: M47.816 Spondylosis without myelopathy or radiculopathy, lumbar region (principal); M51.36 Other intervertebral disc degeneration, lumbar region; M43.16 Spondylolisthesis, lumbar region
CPT/HCPCS: 64493; 64494

== ENCOUNTER 2024-04-03 12:45 | Outpatient (AMB) | payer MEDICARE, BC, SELFPAY ==
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
[2024-04-03 12:54] VITALS: BP 142/71; PULSE 72; O2SAT 98; BMI 22.3
== END 2024-04-03 13:23 | disposition home or self-care (01) ==
PROVIDERS: PCP Internal Medicine; Visit Provider Registered Nurse Emergency
DX: M43.16 Spondylolisthesis, lumbar region (principal); M51.36 Other intervertebral disc degeneration, lumbar region
CPT/HCPCS: 99213

== ENCOUNTER → 2024-04-03 12:45 | Outpatient (BNVA) | payer MEDICARE, BC, SELFPAY | PROVIDERS: PCP Internal Medicine; Visit Provider Registered Nurse Emergency | DX: M43.16 Spondylolisthesis, lumbar region (principal); M51.36 Other intervertebral disc degeneration, lumbar region | CPT/HCPCS: 99212 ==

== ENCOUNTER 2024-04-28 11:20 | Outpatient (REF) | payer MEDICARE, BC, SELFPAY ==
[2024-04-28 11:57] LABS: MANUAL DIFF FLAG NO
[2024-04-28 12:41] LABS: Basophils Absolute Auto 0.1 X10*3/uL (0.0-0.2); Eosinophils Absolute Auto 0.7 X10*3/uL (0.0-0.4); Eosinophils Percent Auto 10.4 % (0-4); Hematocrit 33.7 % (37.0-47.0); Hemoglobin 9.8 g/dl (12.0-16.0); Imm Gran Abs Auto 0.02 X10*3/uL (0.00-0.03); Imm Gran Pct Auto 0.3 % (0.0-0.4); Lymphocytes Absolute Auto 1.2 X10*3/uL (1.2-4.9); Lymphocytes Percent Auto 18.8 % (20-40); Mean Corpuscular HGB Conc 29.1 g/dl (31.0-35.0); Mean Corpuscular Hemoglobin 21.5 pg (27.0-33.0); Mean Corpuscular Volume 73.9 fL (80.0-98.0); Mean Platelet Volume 9.5 fL (9.4-12.3); Monocytes Absolute Auto 0.4 X10*3/uL (0.1-1.2); Monocytes Percent Auto 6.4 % (2-11); Neutrophils Percent Auto 63.1 % (45-73); Platelet Count 318 X10*3/uL (160-400); Red Blood Count 4.56 X10*6/uL (4.20-5.50); Red Cell Distribution Width 20.9 % (11.0-16.0); White Blood Count 6.3 X10*3/uL (4.8-10.8)
[2024-04-28 13:46] LABS: Alanine Aminotransferase 10 U/L (0-31); Albumin Level 4.2 g/dL (3.5-5.0); Alkaline Phosphatase 61 U/L (39-117); Anion Gap 14 (12-20); Aspartate Amino Transferase 16 U/L (5-31); Bilirubin Total 0.3 mg/dL (0.0-1.0); Blood Urea Nitrogen 20 mg/dL (9-16); Calcium 9.9 mg/dL (8.4-10.2); Carbon Dioxide 24 mmol/L (22-29); Chloride 109 mmol/L (96-108); Cholesterol 204 mg/dL (<200); Estimated Glomerular Filt Rate 45; Glucose Random 104 mg/dL (60-115); HDL Cholesterol 107 mg/dL (>40); LDL Cholesterol Calculated 82 mg/dL (<100); Potassium 5.3 mmol/L (3.3-5.1); Sodium 142 mmol/L (135-145); Total Protein 7.1 g/dL (6.5-8.0); Triglycerides 78 mg/dL (<150)
[2024-04-28 14:04] LABS: Folate 10.4 ng/mL (> or = 4.0); Vitamin B12 305 pg/mL (200-900)
[2024-04-28 14:42] LABS: Thyroid Stimulating Hormone 1.49 uIU/mL (0.32-4.0); Vitamin D 25-OH Total 25.5 ng/mL (>30)
== END 2024-04-28 11:21 | disposition home or self-care (01) ==
LOC: HO.LAB 11:20
PROVIDERS: PCP Internal Medicine; Visit Provider Internal Medicine
DX: I48.0 Paroxysmal atrial fibrillation (principal); E78.00 Pure hypercholesterolemia, unspecified
CPT/HCPCS: 36415; 80053; 80061; 82306; 82607; 82746; 84443; 85025

== ENCOUNTER 2024-05-13 06:11 | Outpatient (REF) | payer MEDICARE, BC, SELFPAY ==
--- NOTE | ~2024-05-13 | FL_ITS ---
EXAMINATION: XR FLUOROSCOPY WITH IMAGES CLINICAL INFORMATION: Lumbar spondylolisthesis. COMPARISON: None available. TECHNIQUE: Fluoroscopy Supervised By: Dr. Arnaud Read. Fluoroscopy Time: 0.1 minutes. Cumulative Dose: 1.11 mGy. DAP: 0.0193 Gycm2. Images: 2. FINDINGS: Intraoperative fluoroscopy and spot films were performed during a procedure in the OR. A cannula and lead is seen on the left with the distal end at probably L4. Precise levels can not be ascertained secondary to marked coning of the images with lack of appropriate landmarks. Please correlate with Dr. Read's report for complete details. FL/FL guidance in treatment room IMPRESSION: Intraoperative fluoroscopy and spot films were obtained. Please see Dr. Read's report for complete details.
== END 2024-05-13 06:12 | disposition home or self-care (01) ==
LOC: CF 06:11
PROVIDERS: Visit Provider Anesthesiology
DX: M43.16 Spondylolisthesis, lumbar region (principal); M47.816 Spondylosis without myelopathy or radiculopathy, lumbar region
CPT/HCPCS: 64555; C1778

== ENCOUNTER 2024-05-13 09:29 | Outpatient (AMB) | payer MEDICARE, BC, SELFPAY ==
--- NOTE | 2024-05-13 10:01 | MHC.OFFVIS ---
Vital Signs 05/13/24 10:19 05/13/24 10:19 Height 5 ft 5 in 5 ft 5 in Weight 134 lb 134 lb BMI 22.3 22.3 BP 135/70 147/70 H Blood Pressure Location Lt brachial Lt brachial Position Sitting Sitting Respiration 12 12 Pulse 65 66 Pulse Source Pulse Oximeter Pulse Oximeter Pulse Oximetry (%) 100 100 Oxygen Delivery Method Room Air Room Air Comment pre-op post-op Intake Visit Reasons: left L3 MB Sprint Allergies lisinopril [LISINOPRIL] Allergy (Intermediate, Verified 05/13/24 10:20) COUGH, constant cough simvastatin [SIMVASTATIN] Allergy (Mild, Verified 05/13/24 10:20) Confusion PFSH Medical History Atrial fibrillation Dysphagia Diarrhea Atrial fibrillation with rapid ventricular response Acute respiratory failure Respiratory arrest Asthma exacerbation Radicular low back pain Polyarthralgia Scalp mass Colon cancer screening Breast cancer screening by mammogram RUQ pain Epigastric abdominal pain Chronic gastritis Chronic low back pain Tubular adenoma of colon Hypercholesterolemia Hypertension Vitamin D deficiency Asthma GERD (gastroesophageal reflux disease) Vitamin B12 deficiency Secondary malignant neoplasm of retroperitoneum and peritoneum History of DVT (deep vein thrombosis) Insomnia Surgical History History of excision of mass (~01/11/22) Hx of endoscopy History of colonoscopy Retroperitoneal liposarcoma History of nephroureterectomy History of back surgery History of section History of tubal ligation History of tonsillectomy Family History Father Myocardial infarction CVD (cardiovascular disease) Mother CVD (cardiovascular disease) Stroke Brother Myocardial infarction CVD (cardiovascular disease) Social History (Updated 02/27/24 @ 14:25 by Ellie Gaona) Household Members: Spouse and Family Housing: House Do you presently have visiting nurse or other home services: No Alcohol intake: never Patient Tobacco Use Status: Never used Tobacco e-Cigarette/Vaping Use: Never Used Second Hand Smoke Exposure: No Substance Use Type: Marijuana and Other service: No Current occupational status: retired Cognitive needs: No Hearing needs: No Vision needs: Yes Physical Exam Vital Signs: Last Vital Signs Pulse 66 05/13/24 10:19 Resp 12 05/13/24 10:19 BP 147/70 H 05/13/24 10:19 Pulse Ox 100 05/13/24 10:19 Oxygen Delivery Method Room Air 05/13/24 10:19 BMI result Body Mass Index 22.3 Office Procedures Sprint PNS Device: Sprint PNS Device [id number] Percutaneous Peripheral Neuroelectrode Procedure: 92067 - Percutaneous Peripheral Neuroelectrode Procedure code (CPT) selection complete Office Meds lidocaine (PF) 50 mg/5 mL (1 %) injection syringe Performing Provider: Sonya Mclain APRN, JODY Performing Location: [facility] [place] [facility] Administered by: Arnaud Read MD on 05/14/24 07:49 Dose Route Admin Location Dispensed Lot Number Expiration Date [facility] Product Blending Supervisor 5 mL subcut 5 mL Assessment & Plan Assessment & Plan (1) Spondylosis of lumbar region without myelopathy or radiculopathy: Code(s): M47.816 - Spondylosis without myelopathy or radiculopathy, lumbar region Category: Medical Plan Sprint PNS L 4 on the left Percutaneous implantation of peripheral nerve stimulation Sprint system. After the risks, benefits and alternatives were discussed with the patient and informed consent was obtained, patient was placed in the prone position and padded to foster comfort. Time out was performed delineating correct site and side of the procedure , name and of the patient, patient participated in time out procedure. Sterily draped C-arm was brought over the operating field and clear picture of the L4 lamina on the on the right was delineated on the screen. The upper central portion of the lamina was chosen as a target of the needle tip insertion . After identifying and marking the intended target, the skin around the planned entry point and the subcutaneous tissues were injected with local anesthetic forming skin wheal.. A percutaneous sleeve and stimulating probe lead introduction system were assembled, inserted and advanced through the skin wheal to the point of interest under C-arm view in tunnel vision fashion, the introducer needle was delivered to a location in proximity to the nerve. Multiple stimulation parameters were used to deliver stimulation to the nerve in concert with stimulating at multiple positions around the nerve. nerve target acquisition was confirmed noting generation of in the corresponding to the nerve being stimulated. Various electrical parameter combinations were tested, and the lead location was adjusted (physically relocated) until the patient indicated overlapping the distribution of the patient?s typical region of pain. The stimulating probe was removed from the introducer and a percutaneous lead was guided through the needle and delivered to a location in similar proximity to the nerve. Final location was verified with electrical stimulation. The introducer needle was removed, and the exposed end of the percutaneous lead was attached to an external stimulator unit. At the end of the case various electrical parameter combinations were again tested until the patient indicated paresthesia or muscle tension overlapping the distribution of the patient?s typical region of pain. After confirming that lead impedance was in the normal range, the external unit was detached, the needle was removed, and the lead was anchored at the skin. The lead was threaded into the connector block and electrical continuity and desired patient response was confirmed. The connector block was attached to the external stimulator unit. The site was covered with a sterile occlusive dressing and a image was taken to document final placement Orders: Orders FL guidance in treatment room 05/13/24 Sonya Mclain APRN, DIGITAL CIRCUIT DESIGNER M43.16 - Spondylolisthesis, lumbar region AMB Sprint PNS 05/13/24 Sonya Mclain APRN, DIGITAL CIRCUIT DESIGNER M43.16 - Spondylolisthesis, lumbar region Medications: New lidocaine (PF) 5 mL subcut ONCE 5 mL 0RF Arnaud Read MD M43.16 - Spondylolisthesis, lumbar region Coding Level of Care Code Procedure Only Diagnoses Spondylosis of lumbar region without myelopathy or radiculopathy M47.816 CPT Codes Sprint PNS - Sprint PNS Device: Sprint PNS Device ([id number]) Sprint PNS - SPRINT: 57061 - Percutaneous Peripheral Neuroelectrode ([id number])
[2024-05-13 10:19] VITALS: BP 135/70; BP 147/70; PULSE 65; PULSE 66; RESP 12; O2SAT 100; BMI 22.3
== END 2024-05-13 10:38 | disposition home or self-care (01) ==
LOC: HO.PMCPRC 09:29
PROVIDERS: PCP Internal Medicine; Visit Provider Anesthesiology
DX: M47.816 Spondylosis without myelopathy or radiculopathy, lumbar region (principal)
CPT/HCPCS: 64555

== ENCOUNTER 2024-05-21 13:21 | Outpatient (AMB) | payer MEDICARE, BC, SELFPAY ==
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
[2024-05-21 13:27] VITALS: PULSE 69; O2SAT 97; BMI 23.3
== END 2024-05-21 13:59 | disposition home or self-care (01) ==
PROVIDERS: PCP Internal Medicine; Visit Provider Registered Nurse Emergency
DX: M43.16 Spondylolisthesis, lumbar region (principal); M51.36 Other intervertebral disc degeneration, lumbar region
CPT/HCPCS: 99024

== ENCOUNTER → 2024-05-21 13:21 | Outpatient (BNVA) | payer MEDICARE, BC, SELFPAY | PROVIDERS: PCP Internal Medicine; Visit Provider Registered Nurse Emergency | DX: M43.16 Spondylolisthesis, lumbar region (principal); M51.36 Other intervertebral disc degeneration, lumbar region; Z98.890 Other specified postprocedural states | CPT/HCPCS: 99212 ==

== ENCOUNTER → 2024-05-22 12:54 | Outpatient (BNVA) | payer MEDICARE, BC, SELFPAY | PROVIDERS: PCP Internal Medicine; Visit Provider Registered Nurse Emergency ==

== ENCOUNTER 2024-05-27 06:20 | Outpatient (REF) | payer MEDICARE, BC, SELFPAY ==
--- NOTE | ~2024-05-27 | FL_ITS ---
EXAMINATION: XR FLUOROSCOPY WITH IMAGES CLINICAL INFORMATION: Spondylosis without myelopathy or radiculopathy, lumbar region. COMPARISON: MR lumbar 10/10/2023. TECHNIQUE: Fluoroscopy provided to: Dr. Miles Fluoroscopy time: 0.3 minutes DAP: 0.0592 mGycm2 Images: 2 FINDINGS: 2 images demonstrate contrast injection into the right intra-articular facet of what appears to be L2-3 . Prior laminectomy L5-S1 suspected . FL/FL guidance in treatment room IMPRESSION: Fluoroscopic guidance. Please refer to the full operative report for details. Electronically signed by: Gomez Hayes MD 07/29/2024 10:03 AM EDT
== END 2024-05-27 06:21 | disposition home or self-care (01) ==
LOC: CF 06:20
PROVIDERS: Visit Provider Anesthesiology
DX: M47.816 Spondylosis without myelopathy or radiculopathy, lumbar region (principal); M43.16 Spondylolisthesis, lumbar region; M51.36 Other intervertebral disc degeneration, lumbar region
CPT/HCPCS: 64555; C1778

== ENCOUNTER 2024-05-27 09:46 | Outpatient (AMB) | payer MEDICARE, BC, SELFPAY ==
[2024-05-27 09:48] VITALS: BP 112/60; PULSE 65; RESP 16; O2SAT 100; BMI 23.3
--- NOTE | 2024-05-27 09:48 | A.OFFVIS_ITS ---
Vital Signs 05/27/24 09:48 05/27/24 10:59 Height 5 ft 5 in 5 ft 5 in Weight 140 lb 140 lb BMI 23.3 23.3 BP 112/60 116/70 Blood Pressure Location Rt brachial Lt brachial Position Sitting Sitting Respiration 16 16 Pulse 65 67 Pulse Source Pulse Oximeter Pulse Oximeter Pulse Oximetry (%) 100 98 Oxygen Delivery Method Room Air Room Air Comment pre-op post-op Intake Visit Reasons: Right L3 MB Sprint Allergies lisinopril [LISINOPRIL] Allergy (Intermediate, Verified 05/27/24 11:00) COUGH, constant cough simvastatin [SIMVASTATIN] Allergy (Mild, Verified 05/27/24 11:00) Confusion PFSH Medical History Atrial fibrillation Dysphagia Diarrhea Atrial fibrillation with rapid ventricular response Acute respiratory failure Respiratory arrest Asthma exacerbation Radicular low back pain Polyarthralgia Scalp mass Colon cancer screening Breast cancer screening by mammogram RUQ pain Epigastric abdominal pain Chronic gastritis Chronic low back pain Tubular adenoma of colon Hypercholesterolemia Hypertension Vitamin D deficiency Asthma GERD (gastroesophageal reflux disease) Vitamin B12 deficiency Secondary malignant neoplasm of retroperitoneum and peritoneum History of DVT (deep vein thrombosis) Insomnia Surgical History History of excision of mass (~01/11/22) Hx of endoscopy History of colonoscopy Retroperitoneal liposarcoma History of nephroureterectomy History of back surgery History of section History of tubal ligation History of tonsillectomy Family History Father Myocardial infarction CVD (cardiovascular disease) Mother CVD (cardiovascular disease) Stroke Brother Myocardial infarction CVD (cardiovascular disease) Social History (Updated 02/27/24 @ 14:25 by Ellie Gaona) Household Members: Spouse and Family Housing: House Do you presently have visiting nurse or other home services: No Alcohol intake: never Patient Tobacco Use Status: Never used Tobacco e-Cigarette/Vaping Use: Never Used Second Hand Smoke Exposure: No Substance Use Type: Marijuana and Other service: No Current occupational status: retired Cognitive needs: No Hearing needs: No Vision needs: Yes Physical Exam Vital Signs: Last Vital Signs Pulse 67 05/27/24 10:59 Resp 16 05/27/24 10:59 BP 116/70 05/27/24 10:59 Pulse Ox 98 05/27/24 10:59 Oxygen Delivery Method Room Air 05/27/24 10:59 BMI result Body Mass Index 23.3 Office Procedures Sprint PNS Device: Sprint PNS Device [id number] Percutaneous Peripheral Neuroelectrode Procedure: 40946 - Percutaneous Peripheral Neuroelectrode Procedure code (CPT) selection complete Office Meds lidocaine (PF) 50 mg/5 mL (1 %) injection syringe Performing Provider: Sonya Mclain APRN, JODY Performing Location: [facility] Administered by: Arnaud Read MD on 05/27/24 12:46 Dose Route Admin Location Dispensed Lot Number Expiration Date NDC Operator Lights 5 mL subcut 5 mL Assessment & Plan Assessment & Plan (1) Spondylolisthesis: Code(s): M43.10 - Spondylolisthesis, site unspecified Category: Medical Qualifiers: Spinal region: lumbar Qualified Code(s): M43.16 - Spondylolisthesis, lumbar region (2) Lumbar degenerative disc disease: Comment: Code(s): M51.36 - Other intervertebral disc degeneration, lumbar region Category: Medical Plan: Sprint PNS L 4 bilateral Percutaneous implantation of peripheral nerve stimulation Sprint system. After the risks, benefits and alternatives were discussed with the patient and informed consent was obtained, patient was placed in the prone position and padded to foster comfort. Time out was performed delineating correct site and side of the procedure , name and of the patient, patient participated in time out procedure. Sterily draped C-arm was brought over the operating field and clear picture of the L4 lamina on the on the right was delineated on the screen. The upper central portion of the lamina was chosen as a target of the needle tip insertion . After identifying and marking the intended target, the skin around the planned entry point and the subcutaneous tissues were injected with local anesthetic forming skin wheal.. A percutaneous sleeve and stimulating probe lead introduction system were assembled, inserted and advanced through the skin wheal to the point of interest under C-arm view in tunnel vision fashion, the introducer needle was delivered to a location in proximity to the nerve. Multiple stimulation parameters were used to deliver stimulation to the nerve in concert with stimulating at multiple positions around the nerve. nerve target acquisition was confirmed noting generation of in the corresponding to the nerve being stimulated. Various electrical parameter combinations were tested, and the lead location was adjusted (physically relocated) until the patient indicated overlapping the distribution of the patient?s typical region of pain. The stimulating probe was removed from the introducer and a percutaneous lead was guided through the needle and delivered to a location in similar proximity to the nerve. Final location was verified with electrical stimulation. The introducer needle was removed, and the exposed end of the percutaneous lead was attached to an external stimulator unit. After the completion of the electrode insertion on the L4 on the right the procedure was repeated on the left at the same lamina in mirroring fashion. At the end of the case various electrical parameter combinations were again tested until the patient indicated paresthesia or muscle tension overlapping the distribution of the patient?s typical region of pain. After confirming that lead impedance was in the normal range, the external unit was detached, the needle was removed, and the lead was anchored at the skin. The lead was threaded into the connector block and electrical continuity and desired patient response was confirmed. The connector block was attached to the external stimulator unit. The site was covered with a sterile occlusive dressing and a image was taken to document final placement Plan Sprint dressing changed as per above unable to trouble shoot the lead connect error. spoke with Tatiana from [facility] and still not able to correct the error. changed external wires and battery mounting pad without success Device will remain off until tomorrows appointment Patient will return to the office tomorrow and meet with Tatiana to further trouble shoot the device and change out all external hardware. Continue with plan for right L4 Sprint placement in 1 week. Orders: Orders FL guidance in treatment room Today Sonya Mclain APRN, CAPTAIN'S ASSISTANT M47.816 - Spondylosis without myelopathy or radiculopathy, lumbar region AMB Sprint PNS Today Sonya Mclain APRN, CAPTAIN'S ASSISTANT M47.816 - Spondylosis without myelopathy or radiculopathy, lumbar region Medications: New lidocaine (PF) 5 mL subcut ONCE 5 mL 0RF Arnaud Read MD M47.816 - Spondylosis without myelopathy or radiculopathy, lumbar region Coding Level of Care Code Procedure Only Diagnoses Spondylolisthesis of lumbar region M43.16 Spinal region: lumbar Lumbar degenerative disc disease M51.36 CPT Codes Sprint PNS - Sprint PNS Device: Sprint PNS Device ([id number]) Sprint PNS - SPRINT: 85870 - Percutaneous Peripheral Neuroelectrode ([id number])
[2024-05-27 10:59] VITALS: BP 116/70; PULSE 67; RESP 16; O2SAT 98; BMI 23.3
== END 2024-05-27 10:58 | disposition home or self-care (01) ==
LOC: HO.PMCPRC 09:46
PROVIDERS: PCP Internal Medicine; Visit Provider Anesthesiology
DX: M43.16 Spondylolisthesis, lumbar region (principal); M51.36 Other intervertebral disc degeneration, lumbar region
CPT/HCPCS: 64555

== ENCOUNTER 2024-06-04 12:52 | Outpatient (AMB) | payer MEDICARE, BC, SELFPAY ==
[2024-06-04 13:05] VITALS: BP 129/61; PULSE 76; O2SAT 97; BMI 23.1
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
== END 2024-06-04 14:04 | disposition home or self-care (01) ==
PROVIDERS: PCP Internal Medicine; Visit Provider Registered Nurse Emergency
DX: M43.16 Spondylolisthesis, lumbar region (principal); M51.36 Other intervertebral disc degeneration, lumbar region
CPT/HCPCS: 99024

== ENCOUNTER → 2024-06-04 12:52 | Outpatient (BNVA) | payer MEDICARE, BC, SELFPAY | PROVIDERS: PCP Internal Medicine; Visit Provider Registered Nurse Emergency | DX: M43.16 Spondylolisthesis, lumbar region (principal); M51.36 Other intervertebral disc degeneration, lumbar region | CPT/HCPCS: 99212 ==

== ENCOUNTER 2024-07-09 12:50 | Outpatient (AMB) | payer MEDICARE, BC, SELFPAY ==
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
[2024-07-09 13:12] VITALS: BP 121/66; PULSE 77; O2SAT 95; BMI 23.1
== END 2024-07-09 13:12 | disposition home or self-care (01) ==
PROVIDERS: PCP Internal Medicine; Visit Provider Registered Nurse Emergency
DX: M43.16 Spondylolisthesis, lumbar region (principal); M51.36 Other intervertebral disc degeneration, lumbar region
CPT/HCPCS: 99213; G2211

== ENCOUNTER → 2024-07-09 12:50 | Outpatient (BNVA) | payer MEDICARE, BC, SELFPAY | PROVIDERS: PCP Internal Medicine; Visit Provider Registered Nurse Emergency | DX: M43.16 Spondylolisthesis, lumbar region (principal); M51.36 Other intervertebral disc degeneration, lumbar region | CPT/HCPCS: 99212 ==

== ENCOUNTER 2024-07-23 12:57 | Outpatient (AMB) | payer MEDICARE, BC, SELFPAY ==
[2024-07-23 13:08] VITALS: BP 122/62; PULSE 73; O2SAT 98
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
== END 2024-07-23 13:28 | disposition home or self-care (01) ==
PROVIDERS: PCP Internal Medicine; Visit Provider Registered Nurse Emergency
DX: M43.16 Spondylolisthesis, lumbar region (principal); M51.36 Other intervertebral disc degeneration, lumbar region
CPT/HCPCS: 99213; G2211

== ENCOUNTER → 2024-07-23 12:57 | Outpatient (BNVA) | payer MEDICARE, BC, SELFPAY | PROVIDERS: PCP Internal Medicine; Visit Provider Registered Nurse Emergency | DX: M43.16 Spondylolisthesis, lumbar region (principal); M51.36 Other intervertebral disc degeneration, lumbar region | CPT/HCPCS: 99212 ==

== ENCOUNTER 2024-09-08 13:18 | Outpatient (AMB) | payer MEDICARE, BC, SELFPAY ==
--- NOTE | 2024-09-08 13:34 | MHC.PC.OV ---
Vital Signs 09/08/24 13:34 09/08/24 13:36 Height 5 ft 5 in 5 ft 5 in Weight 135 lb 0.2 oz BMI 22.5 BP 130/70 Blood Pressure Location Lt brachial Position Sitting Pulse 70 Pulse Source Pulse Oximeter Oxygen Delivery Method Room Air Intake Visit Reasons: SMV, Thrombosis Allergies lisinopril [LISINOPRIL] Allergy (Intermediate, Verified 09/08/24 13:38) COUGH, constant cough simvastatin [SIMVASTATIN] Allergy (Mild, Verified 09/08/24 13:38) Confusion Tobacco use date assessed: 01/11/24 Fall risk assessment: No Falls in past year Last assessed Fall Risk: 09/08/24 Dental Screening Dental Screen Date: 09/08/24 HPI SMV, Thrombosis HPI Details 74-year-old female with a history of GERD chronic , recurrent major depression history of secondary malignant neoplasm of the retroperitoneum and peritoneum, asthma atrial fibrillation lumbar degenerative disc disease history of DVT, coming in for an follow-up. t. Last seen in 01/23/2024. Patient's mammogram is due bone density is due colonoscopy is up-to-date. Patient follows up with pain management having had the splint removal right 07/25/2024 received blood work 06/23/2024 for normal electrolytes, creatinine of 1.3 BUN of 20 normal blood sugar normal liver function test received [facility] for the day differentiated liposarcoma status post surgical resection with right adrenalectomy and radical right nephroureterectomy. With resection of ischemic bowel. Surgery for the cholelithiasis held off due to complicated abdominal problem. Hydromorphone 15 mg to 2 3 times a day prescribed for abdominal pain. November 2018.. Patient has also seen Hematology-Oncology February 2024 right upper extremity DVT right subclavian and axillary vein Eliquis notes red no need to remain on indefinite anticoagulation. Patient has also seen gastroenterology for the chronic diarrhea postprandial much better with mesalamine. PAtient states pancreatic stone. plan going to [facility] Medical History Atrial fibrillation Dysphagia Diarrhea Atrial fibrillation with rapid ventricular response Acute respiratory failure Respiratory arrest Asthma exacerbation Radicular low back pain Polyarthralgia Scalp mass Colon cancer screening Breast cancer screening by mammogram RUQ pain Epigastric abdominal pain Chronic gastritis Chronic low back pain Tubular adenoma of colon Hypercholesterolemia Hypertension Vitamin D deficiency Asthma GERD (gastroesophageal reflux disease) Vitamin B12 deficiency Secondary malignant neoplasm of retroperitoneum and peritoneum History of DVT (deep vein thrombosis) Insomnia Surgical History History of excision of mass (~01/11/22) Hx of endoscopy History of colonoscopy Retroperitoneal liposarcoma History of nephroureterectomy History of back surgery History of section History of tubal ligation History of tonsillectomy Family History Father Myocardial infarction CVD (cardiovascular disease) Mother CVD (cardiovascular disease) Stroke Brother Myocardial infarction CVD (cardiovascular disease) Social History (Updated 02/27/24 @ 14:25 by Ellie Gaona) Household Members: Spouse and Family Housing: House Do you presently have visiting nurse or other home services: No Alcohol intake: never Patient Tobacco Use Status: Never used Tobacco e-Cigarette/Vaping Use: Never Used Second Hand Smoke Exposure: No Substance Use Type: Marijuana and Other service: No Current occupational status: retired Cognitive needs: No Hearing needs: No Vision needs: Yes Questionnaire Thrive Questionnaire Date Thrive assessed: 03/15/23 AUDIT C Alcohol Use Questionnaire (AUDIT-C) 1. How often do you have a drink containing alcohol?: Never 3. How often do you have six or more drinks on one occasion?: Never Total Score: 0 TYLER-7 AMB Questionnaire TYLER-7 Date TYLER - 7 assessed: 01/11/24 Source: Developed by Drs. Juventino Harper, Kaelyn Bruno, Ajay Briggs and colleagues, with an educational lake from [employer]. Physical exam (Primary Care) Vital Signs: Last Vital Signs Pulse 70 09/08/24 13:36 BP 130/70 09/08/24 13:36 Oxygen Delivery Method Room Air 09/08/24 13:36 BMI result Body Mass Index 22.5 Tobacco/Smoking Status: Tobacco use Status Tobacco use date assessed 01/11/24 09/08/24 13:39 Patient Tobacco Use Status Never used Tobacco 09/08/24 13:39 e-Cigarette/Vaping Use Never Used 09/08/24 13:39 Thrive Assessment: Date of Thrive Assessment Date Thrive assessed 03/15/23 09/08/24 13:39 Const General: alert; No acute distress Eyes Conjunctivae: conjunctivae normal Resp Auscultation: clear to auscultation bilaterally Cardio Rate: regular rate Rhythm: regular rhythm GI Inspection: Yes normal to inspection Extrem General: Yes normal to inspection and No edema Office Procedures Flu Questionnaire Does the patient have a severe egg allergy?: No Does the patient have severe life threatening allergies?: No Does the patient have a fever or illness today?: No Has the patient ever had Guillain-[place] Syndrome?: No Has the patient ever had any past reaction to a flu shot?: No Immunizations Fluarix Triv [id number] (PF) 45 mcg (15 mcg x 3)/0.5 mL IM syringe Performing Provider: Chiara Diggs MD [facility] Administered by: Anne Hernandez LPN on 09/08/24 14:30 Dose Route Admin Location Dispensed Lot Number Expiration Date [facility] [employer] 0.5 mL IM Left Deltoid 0.5 mL [id number] 05/04/25 [id number] [employer] VIS Given Date VIS Provided VIS Publication Date 09/08/24 Single Vaccine 21 Eligibility Eligibility Date Funding Source Not [facility] Eligible 09/08/24 Private Coding Level of Care Code Est Pt Level 4 (72514) Diagnoses Spondylosis of lumbar region without myelopathy or radiculopathy M47.816 H/O deep venous thrombosis Z86.718 Atrial fibrillation, unspecified type I48.91 Atrial fibrillation type: unspecified Anemia, unspecified type D64.9 Anemia type: unspecified type Mild intermittent asthma without complication J45.20 Asthma complication type: uncomplicated Asthma persistence: intermittent Asthma severity: mild Secondary malignant neoplasm of retroperitoneum and peritoneum C78.6 Gastroesophageal reflux disease without esophagitis K21.9 Esophagitis presence: without esophagitis Pancreatic stones K86.89 Assessment & Plan Assessment & Plan (1) Spondylosis of lumbar region without myelopathy or radiculopathy: Code(s): M47.816 - Spondylosis without myelopathy or radiculopathy, lumbar region Category: Medical Plan: Patient is under pain management right now had a splint placed and removal done (2) H/O deep venous thrombosis: Comment: Provoked with intravenous access Code(s): Z86.718 - Personal history of other venous thrombosis and embolism Category: Medical Plan: Patient has seen hematology oncology. No reason for indefinite anticoagulation. (3) Atrial fibrillation: Code(s): I48.91 - Unspecified atrial fibrillation Category: Medical Qualifiers: Atrial fibrillation type: unspecified Qualified Code(s): I48.91 - Unspecified atrial fibrillation Plan: Brief episode that resolved (4) Anemia: Code(s): D64.9 - Anemia, unspecified Category: Medical Qualifiers: Anemia type: unspecified type Qualified Code(s): D64.9 - Anemia, unspecified Plan: Continuing to monitor (5) Asthma: Code(s): J45.909 - Unspecified asthma, uncomplicated Category: Medical Qualifiers: Asthma complication type: uncomplicated Asthma persistence: intermittent Asthma severity: mild Qualified Code(s): J45.20 - Mild intermittent asthma, uncomplicated Plan: Continue with inhalers albuterol and Wixela. (6) Secondary malignant neoplasm of retroperitoneum and peritoneum: Comment: retroperitoneal mass biopsy spindle cell neoplasm July 2018 right retroperitoneal liposarcoma radiation and radical abdominal resection November 2018, right nephroureterectomy right right drip throw peritoneal sarcoma resection right adrenalectomy, right colectomy with primary anastomosis small-bowel resection duodenal patch with ileum over 1/3 duodenum SMV thrombosis lysis of her adhesions small-bowel resection ileocolic, retrocolic, gastrojejunostomy, gastric J-tube placement mar 25 2019 Code(s): C78.6 - Secondary malignant neoplasm of retroperitoneum and peritoneum Category: Medical Plan: Continue to be followed up (7) GERD (gastroesophageal reflux disease): Code(s): K21.9 - Gastro-esophageal reflux disease without esophagitis Category: Medical Qualifiers: Esophagitis presence: without esophagitis Qualified Code(s): K21.9 - Gastro-esophageal reflux disease without esophagitis Plan: Avoid the foods that causes that usually spicy foods, tomato products, juices, coffee, soda and foods that your sensitive to. After eating do not lie down, allow 3-4 hours before in lie down. And keep the head of bed above 30 degrees to avoid the acid from going up. (8) Pancreatic stones: Code(s): K86.89 - Other specified diseases of pancreas Category: Medical Plan: Awaiting results and will do referral to Gastroenterology Orders: Orders Influenza [id number] Immunization Today Z23 - Encounter for immunization Referrals Gastroenterology Referral K86.89 - Other specified diseases of pancreas Medications: Refilled fluticasone propion-salmeterol 113-14 mcg/actuation 1 inh inhalation BID 1 ea 12RF J45.20 - Mild intermittent asthma, uncomplicated cyclobenzaprine 10 mg PO BID PRN 60 tabs 4RF for muscle spasm K86.89 - Other specified diseases of pancreas zolpidem 10 mg PO BEDTIME PRN 90 tabs 1RF insomnia 90 days J45.20 - Mild intermittent asthma, uncomplicated
[2024-09-08 13:36] VITALS: BP 130/70; PULSE 70; BMI 22.5
== END 2024-09-08 14:30 | disposition home or self-care (01) ==
LOC: HO.HMCH 13:23
PROVIDERS: PCP Internal Medicine; Visit Provider Internal Medicine
DX: I48.91 Unspecified atrial fibrillation (principal); C78.6 Secondary malignant neoplasm of retroperitoneum and peritoneum; M47.816 Spondylosis without myelopathy or radiculopathy, lumbar region; Z86.718 Personal history of other venous thrombosis and embolism; D64.9 Anemia, unspecified; J45.20 Mild intermittent asthma, uncomplicated; K21.9 Gastro-esophageal reflux disease without esophagitis; K86.89 Other specified diseases of pancreas

== ENCOUNTER → 2024-09-08 13:18 | Outpatient (BNVA) | payer MEDICARE, BC, SELFPAY | PROVIDERS: PCP Internal Medicine; Visit Provider Internal Medicine | DX: Z23 Encounter for immunization (principal); M47.816 Spondylosis without myelopathy or radiculopathy, lumbar region; I48.91 Unspecified atrial fibrillation; D64.9 Anemia, unspecified; J45.20 Mild intermittent asthma, uncomplicated; C78.6 Secondary malignant neoplasm of retroperitoneum and peritoneum; K21.9 Gastro-esophageal reflux disease without esophagitis; K86.89 Other specified diseases of pancreas; Z86.718 Personal history of other venous thrombosis and embolism | CPT/HCPCS: 90471; 90656; 99212 ==

== ENCOUNTER 2024-10-08 11:49 | Emergency (ER) | payer MEDICARE, BC, SELFPAY ==
--- NOTE | ~2024-10-08 | CT_ITS ---
EXAMINATION: CT ABDOMEN AND PELVIS WITHOUT CONTRAST CLINICAL INFORMATION: Right lower quadrant pain. Right flank pain. COMPARISON: CT dated September 13, 2022. TECHNIQUE: Multidetector volumetric imaging was performed from the superior aspect of the liver through the pubic symphysis. Sagittal and coronal reformatted images were obtained on the technologist's workstation. This CT examination was performed using dose optimization techniques as appropriate, variously including the following: *Automated exposure control *Adjustment of mA and/or kV according to patient size (this includes techniques or standardized protocols for targeted exams where dose is matched to indication/reason for exam; i.e. extremities or head) *Use of iterative reconstruction technique DLP: 417 mGy-cm FINDINGS: Limited evaluation of the intra-abdominal organs and vascular structures due to lack of IV contrast. LUNG BASES: No acute airspace disease. Scarring in the left lung base. Nonspecific 3 mm nodule in the inferior right pericardium. Calcified plaques in the mitral valve. Calcified plaques descending thoracic aorta. Fatty herniation in the posterior diaphragm, bilaterally. LIVER, GALLBLADDER, AND BILIARY TREE: Liver measures 12 cm. Intraluminal layering calcifications in the gallbladder without pericholecystic fluid collection or gallbladder wall thickening. No intrahepatic or extrahepatic biliary ductal dilatation. PANCREAS: 5 mm calcification in the main pancreatic duct near the head resulting in a 5 mm main pancreatic ductal dilatation. No peripancreatic fluid collection. SPLEEN: 9 cm. ADRENAL GLANDS: Absent right adrenal gland. No nodular lesion in the left. KIDNEYS AND URETERS: Absent right kidney. No hydronephrosis or nephrolithiasis in the left kidney. BLADDER: Collapsed bladder. GASTROINTESTINAL TRACT: Abundant stool within a prominent distended left hemicolon. Sutures in the right hemicolon and at the gastric and small bowel loops suggesting Billroth type II procedure. There is an apparent segmental wall thickening at the sigmoid colon resulting in narrowed lumen. I do not see any intestinal obstruction pattern. No ascites. No pneumoperitoneum. No pneumatosis intestinalis. ABDOMINAL WALL: Diastases abdominal rectus muscles amputation of the intra-abdominal organs in the periumbilical region without overt herniation. LYMPH NODES: Nonspecific prominent lymph nodes, mesenteric and retroperitoneal. VASCULAR: Calcified plaques throughout the abdominal aorta, iliac arteries, mesenteric arteries and renal arteries. No aneurysm in the abdominal aorta. Calcified plaques in the splenic artery. PELVIC VISCERA: No gross masses in the uterus or adnexa. OSSEOUS STRUCTURES: Multilevel thoracolumbar spondylosis resulting in grade 1 anterolisthesis L4-5 and grade 1 retrolisthesis L2-3 and L1-2 levels. Incomplete ankylosis, L5-S1. Osteopenia versus osteoporosis. Degenerative changes in the sacroiliac joints. CT/CT abdomen pelvis wo IV con IMPRESSION: Focal segmental wall thickening, sigmoid colon. Peristalsis versus neoplasm. Intraductal papillary mucinous neoplasm of the pancreas cannot be excluded. Cholelithiasis. Fleischner guidelines were followed. Electronically signed by: Esteban Ahuja MD 10/08/2024 03:13 PM TWILA
--- NOTE | 2024-10-08 12:28 | ED_ITS ---
HPI - Abdominal Pain General Chief Complaint: Abdominal Pain Stated Complaint: abd pain rad into back Time Seen by Provider: 10/08/24 21:19 Source: patient and family (, Ron) Mode of arrival: ambulatory Limitations: no limitations History of Present Illness ED Provider: Dr. 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 The patient states the pain came on suddenly 5 days prior. She describes the pain is a constant, burning sensation which is 10/10. The patient does take morphine for her chronic pain and she states this was not relieving the pain. Patient states that she was had postprandial pain immediately after eating for 5 years but the pain in her lower abdomen and flank is different. She denied fever, chills, frequency, urgency, dysuria, dark stools, bloody stools or constipation. She was not noticed any rash on her skin. Related Data Home Medications ?Medication ?Instructions ?Recorded ?Confirmed cyanocobalamin (vitamin B-12) 1,000 mcg PO DAILY 08/12/20 05/21/24 1,000 mcg capsule THC oral drop PO .QHS 08/11/21 05/21/24 topiramate 50 mg tablet 50 mg PO DAILY PRN LAU 05/29/22 05/21/24 hydromorphone 4 mg tablet mg PO 01/28/24 05/21/24 prochlorperazine maleate 5 mg 5 mg PO TID PRN nausea and vomiting 01/28/24 05/21/24 tablet morphine 15 mg immediate release 7.5 - 15 mg PO Q4-6H PRN prn 02/27/24 05/21/24 tablet Previous Rx's ?Medication ?Instructions ?Recorded nebulizers (Aeroneb Go Nebulizer) #1 ea 11/13/22 duloxetine 60 mg capsule,delayed 60 mg PO DAILY #90 caps 08/27/23 release benzonatate 100 mg capsule 100 mg PO TID PRN cough #30 caps 09/04/23 montelukast 10 mg tablet 10 mg PO DAILY #90 tabs 10/05/23 (Singulair) albuterol sulfate 1.25 mg/3 mL See Rx Instructions .Route 11/28/23 solution for nebulization .COMPLEX #75 mL esomeprazole magnesium 40 mg 40 mg PO DAILY #90 caps 01/28/24 capsule,delayed release mesalamine 500 mg capsule,extended 1,000 mg (2 x 500 mg) PO TID #240 02/21/24 release caps cholecalciferol (vitamin D3) 50 50 mcg PO DAILY #90 caps 02/22/24 mcg (2,000 unit) capsule albuterol sulfate 90 mcg/actuation 2 puff PO Q4H PRN Respiratory 06/03/24 aerosol inhaler Distress #8.5 grams cyclobenzaprine 10 mg tablet 10 mg PO BID PRN for muscle spasm 09/08/24 #60 tabs fluticasone 113 mcg-salmeterol 14 1 inh inhalation BID #1 ea 09/08/24 mcg/actuation breath activated powdr zolpidem 10 mg tablet 10 mg PO BEDTIME PRN insomnia 90 09/08/24 days #90 tabs Allergies Allergy/AdvReac Type Severity Reaction Status Date / Time lisinopril [LISINOPRIL] Allergy Intermediate COUGH, Verified 10/08/24 12:30 constant cough simvastatin [SIMVASTATIN] Allergy Mild Confusion Verified 10/08/24 12:30 Review of Systems Review of Systems Yes all other systems are reviewed and are negative [facility] Past Medical History [facility] Narrative: Social history: She denies tobacco, alcohol and drug use. Medical History Atrial fibrillation Dysphagia Diarrhea Atrial fibrillation with rapid ventricular response Acute respiratory failure Respiratory arrest Asthma exacerbation Radicular low back pain Polyarthralgia Scalp mass Colon cancer screening Breast cancer screening by mammogram RUQ pain Epigastric abdominal pain Chronic gastritis Chronic low back pain Tubular adenoma of colon Hypercholesterolemia Hypertension Vitamin D deficiency Asthma GERD (gastroesophageal reflux disease) Vitamin B12 deficiency Secondary malignant neoplasm of retroperitoneum and peritoneum History of DVT (deep vein thrombosis) Insomnia Surgical History History of excision of mass (~01/11/22) Hx of endoscopy History of colonoscopy Retroperitoneal liposarcoma History of nephroureterectomy History of back surgery History of section History of tubal ligation History of tonsillectomy Family History Family History Father Myocardial infarction CVD (cardiovascular disease) Mother CVD (cardiovascular disease) Stroke Brother Myocardial infarction CVD (cardiovascular disease) Social History Social History (Updated 02/27/24 @ 14:25 by Ellie Gaona) Household Members: Spouse and Family Housing: House Do you presently have visiting nurse or other home services: No Alcohol intake: never Patient Tobacco Use Status: Never used Tobacco Smoked in Last 30 Days: No e-Cigarette/Vaping Use: Never Used Second Hand Smoke Exposure: No Use of substances other than those prescribed or required for medical reasons: No Substance Use Type: Marijuana and Other Advance Directives: No Advance Directives Information Provided: No Do you have a plan to hurt others: No Plan service: No Current occupational status: retired Cognitive needs: No Hearing needs: No Vision needs: Yes Physical Exam ED Vital Signs: Vital Signs - 24 hr 10/08/24 12:29 10/08/24 21:14 10/08/24 21:15 Temperature 98.1 F 98.7 F Pulse Rate 77 76 71 Respiratory Rate 20 16 15 Blood Pressure 157/87 H 183/100 H 181/80 H Pulse Oximetry 96 98 98 Oxygen Delivery Method Room Air Room Air Room Air 10/08/24 22:02 Temperature Pulse Rate 73 Respiratory Rate 15 Blood Pressure 160/73 H Pulse Oximetry 98 Oxygen Delivery Method Room Air BMI result Body Mass Index 23.7 Vital signs revealed elevated blood pressures otherwise unremarkable. Exam: General: Awake, alert in no distress Head: Normocephalic, atraumatic EENT: PERRL, Lids normal, sclera normal, conjunctiva normal, nose normal , ears normal, throat without erythema or exudates Neck: Supple, no adenopathy Lung: breath sounds symmetric, no wheezing, rales or rhonchi Chest: symmetric movement, nontender Heart: regular rate and rhythm, normal S1, S2 no murmurs or rubs Abdomen: soft, mild to moderate right lower quadrant tenderness, normoactive bowel sounds, no rebound, no voluntary or involuntary guarding Back: no vertebral tenderness, mild to moderate right CVA tenderness Extremities: no deformities, moves all extremities symmetrically Neuro: Awake, alert, oriented, normal speech, cranial nerves intact, moves all extremities symmetrically Skin: No rashes or lesions noted in the area where she was having pain Psych: Pleasant, cooperative Course Course Course Narrative: This is a Rapid Medical Examination (RME) performed by Javon Stinson PA-C in triage. Full HPI, ROS, assessment and treatment plan per primary provider in the Main ED. 74 yo female with history of afib not on anticoagulation, asthma, anemia who presents to the ER from home c/o RLQ pain that radiates to her back for the last 5 days along w/ nausea. No vomiting, diarrhea, constipation or urinary symptoms. tenderness in right lower flank, right iliac crest, RLQ. 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 Vital signs revealed elevated blood pressure otherwise unremarkable. Exam did reveal right lower quadrant and right CVA tenderness, no rash noted in the area of her pain. Differential diagnosis: ?Includes but is not limited to diverticulitis, pancreatitis, cholecystitis, appendicitis, pyelonephritis, renal colic, shingles, electrolyte abnormalities, anemia Course: 23:51 hours My interpretation patient's laboratory evaluation is as follows: Anemia with an H&H of 11.4 and 33.9. Comprehensive metabolic panel was normal. Lipase was normal. Urinalysis was negative. Magnesium was normal. CT scan of the abdomen pelvis revealed multiple incidental findings which I did review with the patient and the patient's , there was no acute finding to explain the patient's pain and symptoms. At this time I do not have a clear etiology for the patient's pain and I did discuss the possibility of shingles with her and her . Patient's pain is 10/10. Patient was ordered to get normal saline IV x1 L, Zofran 4 mg IV, Dilaudid 1 mg IV x3 doses with improvement of her pain. Patient was discharged home with printed and verbal instructions. I did advise her and her to watch for signs of shingles and if she develops a rash she should contact her PCP or return to the emergency department to get started on medications as soon as possible. Admission/Observation Consideration of admission/observation: Escalation of care including admission/observation considered (Yes) Lab Data MDM Lab Attestation statement: I reviewed the patient's lab results. 10/08/24 14:31 10/08/24 14:31 Labs: Lab Results 10/08/24 Range/Units 14:31 WBC 5.5 (4.8-10.8) X10*3/uL RBC 4.49 (4.20-5.50) X10*6/uL Hgb 11.4 L (12.0-16.0) g/dl Hct 35.9 L (37.0-47.0) % MCV 80.0 (80.0-98.0) fL MCH 25.4 L (27.0-33.0) pg MCHC 31.8 (31.0-35.0) g/dl RDW 19.2 H (11.0-16.0) % Plt Count 246 (160-400) X10*3/uL MPV 9.2 L (9.4-12.3) fL Immature Gran % (Auto) 0.2 (0.0-0.4) % Neut % (Auto) 57.3 (45-73) % Lymph % (Auto) 23.8 (20-40) % Floyd % (Auto) 7.8 (2-11) % Eos % (Auto) 10.2 H (0-4) % Baso % (Auto) 0.7 (0-2) % Lymph # (Auto) 1.3 (1.2-4.9) X10*3/uL Floyd # (Auto) 0.4 (0.1-1.2) X10*3/uL Eos # (Auto) 0.6 H (0.0-0.4) X10*3/uL Baso # (Auto) 0.0 (0.0-0.2) X10*3/uL Abs Immat Gran (auto) 0.01 (0.00-0.03) X10*3/uL Absolute Neuts (auto) 3.2 (2.0-8.3) x10*3/uL Absolute Nucleated RBC 0.000 (0.0-0.012) X10*3/uL Nucleated RBC % (auto) 0.0 (0.0-0.2) /100WBC Sodium 138 (135-145) mmol/L Potassium 4.5 (3.3-5.1) mmol/L Chloride 107 (96-108) mmol/L Carbon Dioxide 25 (22-29) mmol/L Anion Gap 11 L (12-20) BUN 14 (9-16) mg/dL Creatinine 1.04 (0.5-1.4) mg/dL Estim Creat Clear Calc 40.3 Estimated GFR 52 Random Glucose 104 (60-115) mg/dL Calcium 10.2 (8.4-10.2) mg/dL Magnesium 1.8 (1.6-2.6) mg/dL Total Bilirubin 0.3 (0.0-1.0) mg/dL Direct Bilirubin 0.1 (0.0-0.5) mg/dL AST 14 (5-31) U/L ALT 10 (0-31) U/L Alkaline Phosphatase 74 (39-117) U/L Total Protein 6.5 (6.5-8.0) g/dL Albumin 3.8 (3.5-5.0) g/dL Lipase 15 (8-78) U/L Urine Color Yellow Urine Appearance Clear Urine pH 5.5 (5.0-9.0) Ur Specific [place] 1.020 (1.005-1.025) Urine Protein Negative (Neg-Trace) mg/dL Urine Glucose (UA) Negative (Negative) mg/dL Urine Ketones Negative (Negative) mg/dL Urine Blood Negative (Negative) Urine Nitrite Negative (Negative) Ur Leukocyte Esterase Negative (Negative) Radiology Impression Discussion of test interpretation with radiology: I have reviewed the radiologist's reading. Radiologist Impression: EXAMINATION: CT ABDOMEN AND PELVIS WITHOUT CONTRAST CLINICAL INFORMATION: Right lower quadrant pain. Right flank pain. FINDINGS: Limited evaluation of the intra-abdominal organs and vascular structures due to lack of IV contrast. LUNG BASES: No acute airspace disease. Scarring in the left lung base. Nonspecific 3 mm nodule in the inferior right pericardium. Calcified plaques in the mitral valve. Calcified plaques descending thoracic aorta. Fatty herniation in the posterior diaphragm, bilaterally. LIVER, GALLBLADDER, AND BILIARY TREE: Liver measures 12 cm. Intraluminal layering calcifications in the gallbladder without pericholecystic fluid collection or gallbladder wall thickening. No intrahepatic or extrahepatic biliary ductal dilatation. PANCREAS: 5 mm calcification in the main pancreatic duct near the head resulting in a 5 mm main pancreatic ductal dilatation. No peripancreatic fluid collection. SPLEEN: 9 cm. ADRENAL GLANDS: Absent right adrenal gland. No nodular lesion in the left. KIDNEYS AND URETERS: Absent right kidney. No hydronephrosis or nephrolithiasis in the left kidney. BLADDER: Collapsed bladder. GASTROINTESTINAL TRACT: Abundant stool within a prominent distended left hemicolon. Sutures in the right hemicolon and at the gastric and small bowel loops suggesting Billroth type II procedure. There is an apparent segmental wall thickening at the sigmoid colon resulting in narrowed lumen. I do not see any intestinal obstruction pattern. No ascites. No pneumoperitoneum. No pneumatosis intestinalis. ABDOMINAL WALL: Diastases abdominal rectus muscles amputation of the intra-abdominal organs in the periumbilical region without overt herniation. LYMPH NODES: Nonspecific prominent lymph nodes, mesenteric and retroperitoneal. VASCULAR: Calcified plaques throughout the abdominal aorta, iliac arteries, mesenteric arteries and renal arteries. No aneurysm in the abdominal aorta. Calcified plaques in the splenic artery. PELVIC VISCERA: No gross masses in the uterus or adnexa. OSSEOUS STRUCTURES: Multilevel thoracolumbar spondylosis resulting in grade 1 anterolisthesis L4-5 and grade 1 retrolisthesis L2-3 and L1-2 levels. Incomplete ankylosis, L5-S1. Osteopenia versus osteoporosis. Degenerative changes in the sacroiliac joints. IMPRESSION: Focal segmental wall thickening, sigmoid colon. Peristalsis versus neoplasm. Intraductal papillary mucinous neoplasm of the pancreas cannot be excluded. Cholelithiasis. Fleischner guidelines were followed. Electronically signed by: Esteban Ahuja MD 10/08/2024 03:13 PM Independent Historian Clinical information obtained from an independent historian. History obtained from or confirmed by: Spouse Medications Administered Discontinued Medications Generic Name Dose Route Start Last Admin Trade Name Freq PRN Reason Stop Dose Admin Diphenhydramine HCl 25 mg 10/08/24 22:54 10/08/24 23:09 Diphenhydramine Hcl 50 Mg/Ml Vial IVPUSH 10/08/24 22:55 25 mg ONCE ONE Administration Hydromorphone HCl 1 mg 10/08/24 21:47 10/08/24 22:02 Hydromorphone Hcl 1 Mg/Ml Syringe IVPUSH 10/08/24 21:48 1 mg ONCE STA Administration Protocol Hydromorphone HCl 1 mg 10/08/24 22:54 10/08/24 23:09 Hydromorphone Hcl 1 Mg/Ml Syringe IVPUSH 10/08/24 22:55 1 mg ONCE STA Administration Protocol Sodium Chloride 1,000 mls @ 999 mls/hr 10/08/24 21:47 10/08/24 22:49 Ns IV 10/08/24 22:47 Infused .Q1H1M STA Infusion Ondansetron HCl 4 mg 10/08/24 21:47 10/08/24 22:02 Ondansetron Hcl 4 Mg/2 Ml Vial IVPUSH 10/08/24 21:48 4 mg ONCE ONE Administration Discharge Plan Discharge Clinical Impression: Abdominal pain, Acute right flank pain Patient Disposition: Home, Self-Care Additional Instructions: Your blood work was unremarkable. The CT scan of your abdomen pelvis did reveal multiple abnormalities but I do not think that any of these abnormalities are the cause of your pain. You did not have any change in your bowel movements but the radiologist did note a thickening of the wall of the sigmoid colon. This is on the opposite side of your pain however I want you to follow-up with your GI doctor to further evaluate this finding. Sometimes wall thickening can be a sign of early cancer and if your hardware assembler is concerned about this finding then they will schedule a colonoscopy for you. Continue taking your pain medications as prescribed by your providers. Watch for signs of shingles (redness, blisters, rash) in the area where your having the pain. If you developed these symptoms then you should call your doctor return to the emergency department to get started on anti shingle medicines as soon as possible. Follow-up with your doctor in 2 days. Please return to the emergency department if your symptoms get worse or if you develop any symptoms that are concerning to you. Prescriptions: No Action (DME) nebulizers [Aeroneb Go Nebulizer] Misc See Rx Instructions .Route Qty: 1 0RF Rx Instructions: As directed updraft treatment every 4 hours p.r.n. duloxetine 60 mg capsule,delayed release(DR/EC) 60 mg PO DAILY Qty: 90 3RF montelukast [Singulair] 10 mg tablet 10 mg PO DAILY Qty: 90 3RF albuterol sulfate 1.25 mg/3 mL solution for nebulization See Rx Instructions .ROUTE .COMPLEX Qty: 75 3RF Dose Instruction: INHALE 2 VIALS (6ML) VIA NEBULIZER 4 TIMES A DAY NEEDED FOR WHEEZE/SHORTNESS OF BREATH Rx Instructions: INHALE 2 VIALS (6ML) VIA NEBULIZER 4 TIMES A DAY NEEDED FOR WHEEZE/SHORTNESS OF BREATH mesalamine 500 mg capsule, extended release 1,000 mg PO TID Qty: 240 2RF cholecalciferol (vitamin D3) 50 mcg (2,000 unit) capsule 50 mcg PO DAILY Qty: 90 3RF albuterol sulfate 90 mcg/actuation HFA aerosol inhaler 2 puff PO Q4H PRN (Reason: Respiratory Distress) Qty: 8.5 3RF morphine 15 mg tablet 7.5 - 15 mg PO Q4-6H PRN (Reason: prn) cyanocobalamin (vitamin B-12) 1,000 mcg capsule 1,000 mcg PO DAILY THC oral drop PO .QHS Rx Instructions: 8 drops benzonatate 100 mg capsule 100 mg PO TID PRN (Reason: cough) Qty: 30 0RF topiramate 50 mg tablet 50 mg PO DAILY PRN (Reason: LAU) fluticasone propion-salmeterol 113-14 mcg/actuation aerosol powdr breath activated 1 inh inhalation BID Qty: 1 12RF cyclobenzaprine 10 mg tablet 10 mg PO BID PRN (Reason: for muscle spasm) Qty: 60 4RF zolpidem 10 mg tablet 10 mg PO BEDTIME PRN (Reason: insomnia) 90 Days Qty: 90 1RF hydromorphone 4 mg tablet PO prochlorperazine maleate 5 mg tablet 5 mg PO TID PRN (Reason: nausea and vomiting) esomeprazole magnesium 40 mg capsule,delayed release(DR/EC) 40 mg PO DAILY Qty: 90 1RF Referrals: Fish Baptiste MD [Physician] - 2 weeks (Patient in ED for right-sided abdominal pain. Incidental finding on CT scan Focal segmental wall thickening, sigmoid colon. Peristalsis versus neoplasm . Patient was advised to contact your office for follow-up of this finding.) Print Language: Estonian
[2024-10-08 12:29] VITALS: BP 157/87; PULSE 77; RESP 20; TEMP 36.7; O2SAT 96; BMI 23.7
[2024-10-08 14:36] LABS: MANUAL DIFF FLAG NO
[2024-10-08 14:37] LABS: Basophils Percent Auto 0.7 % (0-2); Eosinophils Absolute Auto 0.6 X10*3/uL (0.0-0.4); Eosinophils Percent Auto 10.2 % (0-4); Hematocrit 35.9 % (37.0-47.0); Hemoglobin 11.4 g/dl (12.0-16.0); Imm Gran Abs Auto 0.01 X10*3/uL (0.00-0.03); Imm Gran Pct Auto 0.2 % (0.0-0.4); Lymphocytes Absolute Auto 1.3 X10*3/uL (1.2-4.9); Lymphocytes Percent Auto 23.8 % (20-40); Mean Corpuscular HGB Conc 31.8 g/dl (31.0-35.0); Mean Corpuscular Hemoglobin 25.4 pg (27.0-33.0); Mean Platelet Volume 9.2 fL (9.4-12.3); Monocytes Absolute Auto 0.4 X10*3/uL (0.1-1.2); Monocytes Percent Auto 7.8 % (2-11); Neutrophils Absolute Auto 3.2 x10*3/uL (2.0-8.3); Neutrophils Percent Auto 57.3 % (45-73); Platelet Count 246 X10*3/uL (160-400); Red Blood Count 4.49 X10*6/uL (4.20-5.50); Red Cell Distribution Width 19.2 % (11.0-16.0); White Blood Count 5.5 X10*3/uL (4.8-10.8)
[2024-10-08 14:40] LABS: Appearance Urine Clear; Color Urine Yellow; Glucose Urine UA Negative (Negative); Leukocyte Esterase Urine Negative (Negative); Nitrite Urine Negative (Negative); PH 5.5 (5.0-9.0); Urine Blood Negative (Negative); Urine Ketones Negative (Negative); Urine Protein Negative (Neg-Trace)
[2024-10-08 14:50] LABS: Alanine Aminotransferase 10 U/L (0-31); Albumin Level 3.8 g/dL (3.5-5.0); Alkaline Phosphatase 74 U/L (39-117); Anion Gap 11 (12-20); Aspartate Amino Transferase 14 U/L (5-31); Bilirubin Direct 0.1 mg/dL (0.0-0.5); Bilirubin Total 0.3 mg/dL (0.0-1.0); Blood Urea Nitrogen 14 mg/dL (9-16); Calcium 10.2 mg/dL (8.4-10.2); Carbon Dioxide 25 mmol/L (22-29); Chloride 107 mmol/L (96-108); Creatinine Clr Calc Pharmacy 40.3; Estimated Glomerular Filt Rate 52; Glucose Random 104 mg/dL (60-115); Lipase 15 U/L (8-78); Magnesium 1.8 mg/dL (1.6-2.6); Potassium 4.5 mmol/L (3.3-5.1); Sodium 138 mmol/L (135-145); Total Protein 6.5 g/dL (6.5-8.0)
[2024-10-08 21:14] VITALS: BP 183/100; PULSE 76; RESP 16; O2SAT 98
[2024-10-08 21:15] VITALS: BP 181/80; PULSE 71; RESP 15; TEMP 37.1; O2SAT 98
--- NOTE | 2024-10-08 21:20 | PC.NURSE ---
MD Ang made aware of sx and vitals.
[2024-10-08] MEDS: 0.9 % Sodium Chloride 1,000 ML 999 ML IV (21:58)
[2024-10-08 22:02] VITALS: BP 160/73; PULSE 73; RESP 15; O2SAT 98
[2024-10-08] MEDS: ondansetron HCL 4 MG/2 ML VIAL IVPUSH (22:02)
[2024-10-08] MEDS: HYDROmorphone HCl 1 MG/ML SYRINGE IVPUSH ×2 (22:02→23:09)
--- NOTE | 2024-10-08 22:49 | PC.NURSE ---
pt reports some improvement with abd pain after medicated per mar however now reporting new LAU, neuros intact, PERRLA. MD cedeño aware.
[2024-10-08] MEDS: diphenhydrAMINE HCL 50 MG/ML VIAL 25 MG IVPUSH (23:09)
[2024-10-08 23:59] VITALS: BP 161/67; PULSE 80; RESP 16; TEMP 37.1; O2SAT 94
[2024-10-09] MEDS: HYDROmorphone HCl 1 MG/ML SYRINGE IVPUSH (00:30)
[2024-10-09 00:39] VITALS: BP 161/67; PULSE 80; RESP 16; TEMP 37.1; O2SAT 94
== END 2024-10-09 00:40 | disposition home or self-care (01) ==
PROVIDERS: Physician Assistant; Emergency Provider Emergency Medicine Emergency Medical Services; PCP Internal Medicine
DX: R10.31 Right lower quadrant pain (principal); R10.9 Unspecified abdominal pain; I10 Essential (primary) hypertension; E78.00 Pure hypercholesterolemia, unspecified; I48.0 Paroxysmal atrial fibrillation; J45.909 Unspecified asthma, uncomplicated; Z86.718 Personal history of other venous thrombosis and embolism
CPT/HCPCS: 36415; 74176; 80048; 80076; 81003; 83690; 83735; 85025; 96361; 96374; 96375; 96376; 99285; J1171; J1200; J2405

== ENCOUNTER → 2024-10-08 12:32 | Outpatient (BNV) | payer MEDICARE, BC, SELFPAY | PROVIDERS: PCP Internal Medicine; Visit Provider Radiology Diagnostic Radiology | DX: R10.11 Right upper quadrant pain (principal) | CPT/HCPCS: 74176 ==

== ENCOUNTER 2024-12-05 10:14 | Outpatient (AMB) | payer MEDICARE, BC, SELFPAY ==
--- NOTE | 2024-12-05 10:14 | MHC.OFFVIS ---
Intake Visit Reasons: Diarrhea Intake Note: Maru presents in the office as a follow up telehealth for diarrhea. CC: She states that she does have concerns - she states that she ended up in the ED with bad pains on the right side of her abdomen. The front right side that went around to her back. She thought it was a pulled muscle but now it has gotten worse. She deals with diarrhea a lot as well and not sure if there is blood in her stool because it is more orange - she said it is NOT bright red. 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 seen for f/u RECAP: index visit 02/2020 After she eats she feels full and it hurts pain is like an overating feeling, 04/14 severity, she waits for it to pass going on since Nov 2018 after right nephrectomy, partial colectomy, adrenal gland then had redo surgery March 2019 for obstruction she has diarrhea since surgery, no exacerbating or relieving factors, maybe worse with ice creams or sausage weight loss 70# over last year, she also takes fentanyl patch and dilaudid since Nov 2018 TESTS: colonoscopy 2009--polyp removed, tics plan was for EGD and GES but due to covid fears she wanted to hold, she was given trial fo movantik and cholestyramine finally had GES 05/2020-- normal at 4 hrs, slightly fast at 1 hr EGD 07/2020--- inflammed anastomotic rim bx gastric nodule, chronic inflammation, ulcerated, chronic inflammation stomach, fundic gland polyp, US 01/17/21--gallstones HIDA scan: 03/25- EF 32%, no acute cholecystitis she was taking movantik but stopped it as it made her go more often to toilet she was unabel to take cholestyramine due to need to take 4 hrs before meds was given trial of sucralfate advised on small freq meals, more fiber in diet I had increased PPI due to ongoing abdo pain she was holding off on GB surgery due to high risks miguelina given prior hx of surgeries, although she was having RUQ pain I gave her bentyl to see if would help she had ongoing RUQ pain, worse after eating a meal--given dilaudid by pain clinic EGD/colonoscopy:01/11/22 Endoscopy Findings: bile acid reflux related gastritis esophagitis esophageal strictures Colonoscopy Findings: polyp internal hemorrhoids diverticular disease balloon was done with small tear at LES Path: tubular adenoma focal enteritis esophagitis CT: 10/08/24 ?panc cyst, atheroscelrosis incl close to the celiac axis, thickened bowel in sigmoid, degenerative spinal changes INTERIM: she has issues with flank and side pain no obivous triggers or relieiving factors stools seme more orange colored no blood in stool, or melena she is still taking mesalamine, and she thinks it has helped Assessment & Plan (1) possible panc cyst on CT, to me it looks more like overlying atherosclerosis 2/ abdominal pain with thickened sigmoid, ? 2/2 constipation, need to r/o segmental colitis, neoplasia 3/ degenerative spinal disease PLAN: 1/ cont with mesalamine 2/ offered PT given degen spinal dz on imaging, wants to hold 3/ MR pancreas 4/ colonoscopy with [facility] Medical History Atrial fibrillation Dysphagia Diarrhea Atrial fibrillation with rapid ventricular response Acute respiratory failure Respiratory arrest Asthma exacerbation Radicular low back pain Polyarthralgia Scalp mass Colon cancer screening Breast cancer screening by mammogram RUQ pain Epigastric abdominal pain Chronic gastritis Chronic low back pain Tubular adenoma of colon Hypercholesterolemia Hypertension Vitamin D deficiency Asthma GERD (gastroesophageal reflux disease) Vitamin B12 deficiency Secondary malignant neoplasm of retroperitoneum and peritoneum History of DVT (deep vein thrombosis) Insomnia Surgical History History of excision of mass (~01/11/22) Hx of endoscopy History of colonoscopy Retroperitoneal liposarcoma History of nephroureterectomy History of back surgery History of section History of tubal ligation History of tonsillectomy Family History Father Myocardial infarction CVD (cardiovascular disease) Mother CVD (cardiovascular disease) Stroke Brother Myocardial infarction CVD (cardiovascular disease) Social History Household Members: Spouse and Family Housing: House Do you presently have visiting nurse or other home services: No Alcohol intake: never Patient Tobacco Use Status: Never used Tobacco e-Cigarette/Vaping Use: Never Used Second Hand Smoke Exposure: No Substance Use Type: Marijuana and Other service: No Current occupational status: retired Cognitive needs: No Hearing needs: No Vision needs: Yes Telehealth Telehealth Telehealth Platform: Telephone Location of provider rendering services: practice address Location of patient: address on file Patient Identification confirmed using: Name, : Yes Telehealth method: voice only Patient verbally consented to treatment: Yes Patient verbally consented to billing insurance company: Yes Patient informed of any privacy concerns related to visit: Yes Minutes spent on Phone/Video with Pt.: 9 Assessment & Plan Assessment & Plan (1) Pancreatic stones: Code(s): K86.89 - Other specified diseases of pancreas Category: Medical Plan as above Orders: Orders MR abdomen wo/w con Today K86.2 - Cyst of pancreas Medications: New sodium,potassium,mag sulfates 17.5-3.13-1.6 gram (Suprep Bowel Prep Kit) DILUTE; drink 1/2 at 6-8 pm and half at 11 PM- 1AM 354 mL 0RF Coding Level of Care Code Tele Est Pt Level 4 (57065) Diagnoses Pancreatic stones K86.89
== END 2024-12-05 16:48 | disposition home or self-care (01) ==
LOC: HO.HGI 10:14
PROVIDERS: PCP Internal Medicine; Visit Provider Internal Medicine Gastroenterology
DX: K86.89 Other specified diseases of pancreas (principal)
CPT/HCPCS: 98016

== ENCOUNTER → 2024-12-05 10:14 | Outpatient (BNVA) | payer MEDICARE, BC, SELFPAY | PROVIDERS: PCP Internal Medicine; Visit Provider Internal Medicine Gastroenterology ==

== ENCOUNTER 2024-12-26 14:06 | Outpatient (AMB) | payer MEDICARE, BC, SELFPAY ==
--- NOTE | 2024-12-26 14:16 | MHC.PC.OV ---
Vital Signs 12/26/24 14:18 Height 5 ft 4 in Weight 135 lb BMI 23.2 BP 118/68 Blood Pressure Location Lt brachial Position Sitting Pulse 65 Pulse Source Pulse Oximeter Pulse Oximetry (%) 96 Oxygen Delivery Method Room Air Intake Visit Reasons: Pancreatic stones Allergies lisinopril [LISINOPRIL] Allergy (Intermediate, Verified 12/26/24 14:16) COUGH, constant cough simvastatin [SIMVASTATIN] Allergy (Mild, Verified 12/26/24 14:16) Confusion Medication List - Last Reconciled 12/26/24 by Chiara Diggs MD albuterol sulfate INHALE 2 VIALS (6ML) VIA NEBULIZER 4 TIMES A DAY NEEDED FOR WHEEZE/SHORTNESS OF BREATH albuterol sulfate 90 mcg/actuation 2 puffs PO Q4H PRN cholecalciferol (vitamin D3) 50 mcg PO DAILY cyanocobalamin (vitamin B-12) 1,000 mcg PO DAILY cyclobenzaprine 10 mg PO BID PRN duloxetine 60 mg PO DAILY fluticasone propion-salmeterol 113-14 mcg/actuation 1 inh inhalation BID fluticasone propionate 50 mcg/actuation (Flonase Allergy Relief) 2 sprays intranasal DAILY mesalamine ER 1.5 grams (4 x 0.375 gram) PO QAM montelukast (Singulair) 10 mg PO DAILY morphine 7.5 - 15 mg PO Q4-6H PRN nebulizers (Aeroneb Go Nebulizer) As directed updraft treatment every 4 hours p.r.n. prochlorperazine maleate 5 mg PO TID PRN sodium,potassium,mag sulfates 17.5-3.13-1.6 gram (Suprep Bowel Prep Kit) DILUTE; drink 1/2 at 6-8 pm and half at 11 PM- 1AM [THC oral drop 8 drops ] topiramate 50 mg PO DAILY PRN zolpidem 10 mg PO BEDTIME PRN 90 days Tobacco use date assessed: 12/26/24 Fall risk assessment: No Falls in past year Last assessed Fall Risk: 12/26/24 Dental Screening Dental Screen Date: 12/26/24 Did you have a dental visit in the last 12 months?: No Did you have a dental problem in the last 6 months where you did not have access to dental care?: No Was dental information given to patient?: No HPI Pancreatic stones HPI Details concern on pain mgmt wire placed on the lumbar area for pain and a concern on doing MRI of the adomen is on hold , sent message to pain mgment. going to [facility] January 04 The patient is a 74-year-old female presenting with multiple chronic conditions for a follow-up. She has a history of malignant neoplasm of the retroperitoneum and peritoneum, with multiple surgeries in 2019 including spindle cell neoplasm resection, radical abdominal resection, right nephroureterectomy, right peritoneal sarcoma resection, right adrenalectomy, right colectomy with ileum anastomosis, small bowel resection, and lysis of adhesions. 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 Currently, she experiences gastroesophageal reflux disease, managing it through lifestyle changes. The patient reports chronic low back pain and a history of major depressive disorder, treated with duloxetine (Cymbalta). She has atrial fibrillation and a history of peripheral vascular disease. Her laboratory work in October showed anemia with hemoglobin at 11.4 g/dL, though other labs were normal. She underwent a CT scan in October, revealing focal thickening in the sigmoid colon, cholelithiasis, and a non-specific 3 mm nodule near the heart. The patient has spinal hardware implanted, causing concern regarding further imaging needs. She reports recent abdominal pain treated in the emergency room, awaiting abdominal MRI approval from pain management. The patient is anxious as the visit coincides with the anniversary of her son?s and ?s significant health events, exacerbating her stress. [facility] Medical History (Updated 12/26/24 @ 14:40 by Chiara Diggs MD) Atrial fibrillation PAF (paroxysmal atrial fibrillation) Dysphagia Diarrhea Atrial fibrillation with rapid ventricular response Acute respiratory failure Respiratory arrest Asthma exacerbation Radicular low back pain Polyarthralgia Scalp mass Colon cancer screening Breast cancer screening by mammogram RUQ pain Epigastric abdominal pain Chronic gastritis Chronic low back pain Tubular adenoma of colon Hypercholesterolemia Hypertension Vitamin D deficiency Asthma GERD (gastroesophageal reflux disease) Vitamin B12 deficiency Secondary malignant neoplasm of retroperitoneum and peritoneum History of DVT (deep vein thrombosis) Insomnia Surgical History History of excision of mass (~01/11/22) Hx of endoscopy History of colonoscopy Retroperitoneal liposarcoma History of nephroureterectomy History of back surgery History of section History of tubal ligation History of tonsillectomy Family History Father Myocardial infarction CVD (cardiovascular disease) Mother CVD (cardiovascular disease) Stroke Brother Myocardial infarction CVD (cardiovascular disease) Social History Household Members: Spouse and Family Housing: House Do you presently have visiting nurse or other home services: No Alcohol intake: never Patient Tobacco Use Status: Never used Tobacco Tobacco use type: Cigarette e-Cigarette/Vaping Use: Never Used Second Hand Smoke Exposure: No Substance Use Type: Marijuana and Other service: No Current occupational status: retired Cognitive needs: No Hearing needs: No Vision needs: Yes Questionnaire PHQ-9 Over the last 2 weeks, how often have you been bothered by any of the following problems? 1. Little interest or pleasure in doing things: not at all 2. Feeling down, depressed, or hopeless: not at all 3. Trouble falling or staying asleep, or sleeping too much: not at all 4. Feeling tired or having little energy: not at all 5. Poor appetite or overeating: not at all 6. Feeling bad about yourself - or that you are a failure or have let yourself or your family down: not at all 7. Trouble concentrating on things, such as reading the newspaper or watching television: not at all 8. Moving or speaking so slowly that other people could have noticed. Or the opposite - being so fidgety or restless that you have been moving around a lot more than usual: not at all 9. Thoughts that you would be better off or of hurting yourself in some way: not at all Total score: 0 Depression Screening Interpretation: Positive Depression Screening Done: Yes 07207 - PHQ-9 Billing: Yes Source: Developed by Drs. Juventino Harper, Kaelyn Bruno, Ajay Briggs and colleagues, with an educational lake from [employer] Thrive Questionnaire Date Thrive assessed: 12/26/24 I am a: Patient What is your living situation today?: I have a steady place to live Within the past 12 months, did the food you bought not last and you didn't have the money to get more?: Never true Within the past 12 months, did you worry whether your food would run out before you got money to buy more?: Never true Do you have trouble paying for medicines?: No Do you have trouble getting transportation to medical appointments?: No Do you have trouble paying your heating and electricity bill?: No Do you have trouble taking care of your child, family member or friend?: No Do you have trouble with day-to-day activities such as bathing, preparing meals, shopping, managing finances, etc.?: No Are you currently unemployed and looking for a job?: No Are you interested in more education?: No Currently or been in a relationship where the following occur: No concerns reported THRIVE Score: 0 AUDIT C Alcohol Use Questionnaire (AUDIT-C) 1. How often do you have a drink containing alcohol?: Never 3. How often do you have six or more drinks on one occasion?: Never Total Score: 0 TYLER-7 AMB Questionnaire TYLER-7 Date TYLER - 7 assessed: 12/26/24 Feeling nervous, anxious, or on edge: 0 = Not at all Not being able to stop or control worryin = Not at all Worrying too much about different things: 0 = Not at all Trouble relaxin = Not at all Being so restless that it is hard to sit still: 0 = Not at all Becoming easily annoyed or irritable: 0 = Not at all Feeling afraid as if something awful might happen: 0 = Not at all Total TYLER-7 score (0-4 normal; 5-9 mild; 10-14 moderate; 15-21 severe): 0 Source: Developed by Drs. Juventino Harper, Kaelyn Bruno, Ajay Briggs and colleagues, with an educational lake from [employer] Physical exam (Primary Care) Vital Signs: Last Vital Signs Pulse 65 12/26/24 14:18 BP 118/68 12/26/24 14:18 Pulse Ox 96 12/26/24 14:18 Oxygen Delivery Method Room Air 12/26/24 14:18 BMI result Body Mass Index 23.2 Tobacco/Smoking Status: Tobacco use Status Tobacco use date assessed 12/26/24 12/26/24 14:19 Patient Tobacco Use Status Never used Tobacco 12/26/24 14:19 Tobacco use type Cigarette 12/26/24 14:19 e-Cigarette/Vaping Use Never Used 12/26/24 14:19 PHQ-9: PHQ-9 Score PHQ-9: Total score 0 12/26/24 14:21 Depression Screening Interpretation: Positive Thrive Assessment: Date of Thrive Assessment Date Thrive assessed 12/26/24 12/26/24 14:19 Currently or been in a relationship where the following occur: No concerns reported Const General: alert; No acute distress Eyes Conjunctivae: conjunctivae normal Resp Auscultation: clear to auscultation bilaterally Cardio Rate: regular rate Rhythm: regular rhythm GI Inspection: Yes normal to inspection Extrem General: Yes normal to inspection and No edema Coding Level of Care Code Est Pt Level 4 (76790) Diagnoses Pancreatic stones K86.89 Secondary malignant neoplasm of retroperitoneum and peritoneum C78.6 Gastroesophageal reflux disease without esophagitis K21.9 Esophagitis presence: without esophagitis Calculus of gallbladder without cholecystitis without obstruction K80.20 Biliary obstruction: without biliary obstruction Cholecystitis presence: without cholecystitis Cholelithiasis location: gallbladder Mild intermittent asthma without complication J45.20 Asthma complication type: uncomplicated Asthma persistence: intermittent Asthma severity: mild 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 Additional Codes PHQ-9 - 15462 - PHQ-9 Billing: Yes ([id number]) Assessment & Plan Assessment & Plan (1) Pancreatic stones: Code(s): K86.89 - Other specified diseases of pancreas Category: Medical Plan: Patient has seen gastroenterology and requested for an MRI of the abdomen (2) Secondary malignant neoplasm of retroperitoneum and peritoneum: Comment: retroperitoneal mass biopsy spindle cell neoplasm July 2018 right retroperitoneal liposarcoma radiation and radical abdominal resection November 2018, right nephroureterectomy right right drip throw peritoneal sarcoma resection right adrenalectomy, right colectomy with primary anastomosis small-bowel resection duodenal patch with ileum over 1/3 duodenum SMV thrombosis lysis of her adhesions small-bowel resection ileocolic, retrocolic, gastrojejunostomy, gastric J-tube placement mar 25 2019 Code(s): C78.6 - Secondary malignant neoplasm of retroperitoneum and peritoneum Category: Medical (3) GERD (gastroesophageal reflux disease): Code(s): K21.9 - Gastro-esophageal reflux disease without esophagitis Category: Medical Qualifiers: Esophagitis presence: without esophagitis Qualified Code(s): K21.9 - Gastro-esophageal reflux disease without esophagitis (4) Cholelithiasis: Code(s): K80.20 - Calculus of gallbladder without cholecystitis without obstruction Category: Medical Qualifiers: Biliary obstruction: without biliary obstruction Cholecystitis presence: without cholecystitis Cholelithiasis location: gallbladder Qualified Code(s): K80.20 - Calculus of gallbladder without cholecystitis without obstruction (5) Asthma: Code(s): J45.909 - Unspecified asthma, uncomplicated Category: Medical Qualifiers: Asthma complication type: uncomplicated Asthma persistence: intermittent Asthma severity: mild Qualified Code(s): J45.20 - Mild intermittent asthma, uncomplicated Plan: Continue with montelukast albuterol and on fluticasone salmeterol combination. (6) Gustatory rhinitis: Code(s): J31.0 - Chronic rhinitis Category: Medical Plan History of Present Illness The patient is a 74-year-old female presenting with multiple chronic conditions for a follow-up. She has a history of malignant neoplasm of the retroperitoneum and peritoneum, with multiple surgeries in 2019 including spindle cell neoplasm resection, radical abdominal resection, right nephroureterectomy, right peritoneal sarcoma resection, right adrenalectomy, right colectomy with ileum anastomosis, small bowel resection, and lysis of adhesions. 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 Currently, she experiences gastroesophageal reflux disease, managing it through lifestyle changes. The patient reports chronic low back pain and a history of major depressive disorder, treated with duloxetine (Cymbalta). She has atrial fibrillation and a history of peripheral vascular disease. Her laboratory work in October showed anemia with hemoglobin at 11.4 g/dL, though other labs were normal. She underwent a CT scan in October, revealing focal thickening in the sigmoid colon, cholelithiasis, and a non-specific 3 mm nodule near the heart. The patient has spinal hardware implanted, causing concern regarding further imaging needs. She reports recent abdominal pain treated in the emergency room, awaiting abdominal MRI approval from pain management. The patient is anxious as the visit coincides with the anniversary of her son?s and ?s significant health events, exacerbating her stress. Physical Exam - Respiratory- Lungs clear to auscultation - Abdomen- No palpable mass noted - Cardiovascular- No abnormal heart sounds appreciated - Neurologic- No deficits noted Plan Patient was informed and verbally consented to the use of an ambient scribe for clinic note documentation during this visit. 1. Malignant Neoplasm Of Retroperitoneum And Peritoneum Continue monitoring post-surgical status. The patient needs an MRI of the abdomen once approved by pain management to evaluate any new or ongoing issues. 2. Gastroesophageal Reflux Disease Patient is advised to continue lifestyle modifications, avoiding fatty foods, and consider [id number] treatments as needed. 3. Spinal Hardware Implantation Coordinate with pain management for MRI clearance. Monitor for any related complications. 4. Peripheral Vascular Disease Encourage the use of support stockings to prevent complications. 5. Cholelithiasis Surgical intervention is not recommended at this time due to patient's current condition. Maintain dietary modifications to manage symptoms. 6. Chronic Low Back Pain Awaiting MRI approval for further evaluation due to spinal hardware. Current medication regimen should be reviewed for pain management efficacy. 7. Major Depressive Disorder Continue on current duloxetine dosage. Monitor for any changes in mental health status and adjust treatment accordingly. 8. Anemia Dietary modifications suggested; monitor hemoglobin levels periodically. 9. Atrial Fibrillation Monitor symptoms related to cardiovascular status. Ensure anticoagulation therapy is properly managed. Medications: New fluticasone propionate 50 mcg/actuation (Flonase Allergy Relief) administer into each nostril 2 sprays intranasal DAILY 16 grams 0RF J31.0 - Chronic rhinitis Refilled fluticasone propion-salmeterol 113-14 mcg/actuation 1 inh inhalation BID 1 ea 12RF J45.20 - Mild intermittent asthma, uncomplicated
[2024-12-26 14:18] VITALS: BP 118/68; PULSE 65; O2SAT 96; BMI 23.2
== END 2024-12-26 14:48 | disposition home or self-care (01) ==
PROVIDERS: PCP Internal Medicine; Visit Provider Internal Medicine
DX: K86.89 Other specified diseases of pancreas (principal); C78.6 Secondary malignant neoplasm of retroperitoneum and peritoneum; K21.9 Gastro-esophageal reflux disease without esophagitis; K80.20 Calculus of gallbladder without cholecystitis without obstruction; J45.20 Mild intermittent asthma, uncomplicated; J31.0 Chronic rhinitis

== ENCOUNTER → 2024-12-26 14:06 | Outpatient (BNVA) | payer BC, MEDICARE, SELFPAY | PROVIDERS: PCP Internal Medicine; Visit Provider Internal Medicine | DX: K86.89 Other specified diseases of pancreas (principal); C78.6 Secondary malignant neoplasm of retroperitoneum and peritoneum; K21.9 Gastro-esophageal reflux disease without esophagitis; K80.20 Calculus of gallbladder without cholecystitis without obstruction; J45.20 Mild intermittent asthma, uncomplicated; J31.0 Chronic rhinitis | CPT/HCPCS: 96127; 99212 ==

== ENCOUNTER 2025-02-12 10:16 | Day surgery (SDC) | payer BC, MEDICARE, SELFPAY ==
[2025-02-03 11:48] VITALS: BMI 23.2
--- NOTE | 2025-02-04 09:20 | P.CONAN_ITS ---
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 Seen by cardiology 2022 for Hx of cardiac arrest r/t respiratory arrest during inpatient. Afib around that time, but none following and no need for anticoag from cardiac standpoint. Echo and Stress at that time unremarkable. No further cardiac f/u Chronic opiates PMFSH Active Problems Active Problems: All Active Problems Gustatory rhinitis (Acute) Pancreatic stones (Acute) Spondylosis of lumbar region without myelopathy or radiculopathy (Acute) Spondylolisthesis (Acute) Lumbar degenerative disc disease (Acute) Cramping of hands (Acute) Diarrhea (Acute) Dysphagia (Acute) Trigger finger (Acute) Gastritis (Acute) Cardiac arrest (Acute) Impacted cerumen of both ears (Acute) Vision changes (Acute) Asthma (Acute) Anemia (Acute) 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) COVID-19 virus infection (Acute) Osteopenia (Acute) Impacted cerumen of both ears (Acute) Recurrent major depression (Acute) Chronic cholecystitis (Acute) Medicare annual wellness visit, initial (Acute) Cholelithiasis (Acute) Memory deficit (Acute) Headache (Acute) Chronic low back pain (Acute) Vitamin D deficiency (Acute) GERD (gastroesophageal reflux disease) (Acute) Vitamin B12 deficiency (Acute) Insomnia (Acute) Past Medical History Medical History Atrial fibrillation PAF (paroxysmal atrial fibrillation) Dysphagia Diarrhea Atrial fibrillation with rapid ventricular response Acute respiratory failure Respiratory arrest Asthma exacerbation Radicular low back pain Polyarthralgia Scalp mass Colon cancer screening Breast cancer screening by mammogram RUQ pain Epigastric abdominal pain Chronic gastritis Chronic low back pain Tubular adenoma of colon Hypercholesterolemia Hypertension Vitamin D deficiency Asthma GERD (gastroesophageal reflux disease) Vitamin B12 deficiency Secondary malignant neoplasm of retroperitoneum and peritoneum History of DVT (deep vein thrombosis) Insomnia Family History Family History Father Myocardial infarction CVD (cardiovascular disease) Mother CVD (cardiovascular disease) Stroke Brother Myocardial infarction CVD (cardiovascular disease) Family history of problems with anesthesia: No Surgical History Surgical History History of excision of mass (~01/11/22) Hx of endoscopy History of colonoscopy Retroperitoneal liposarcoma History of nephroureterectomy History of back surgery History of section History of tubal ligation History of tonsillectomy History of Problems with Anesthesia: No Social History Social History Household Members: Spouse and Family Housing: House Are you a primary resident care coordinator to a significant other at home: No Do you presently have visiting nurse or other home services: No Alcohol intake: never Patient Tobacco Use Status: Never used Tobacco Tobacco use type: Cigarette e-Cigarette/Vaping Use: Never Used Second Hand Smoke Exposure: No Substance Use Type: Marijuana and Other Have you been hit, kicked, punched, or otherwise hurt by someone within the past year? If so, by whom?: No Are you DNR?: No Advance Directives: No Advance Directives Information Provided: Yes Poor oral hygiene: Yes service: No Current occupational status: retired Cognitive needs: No Hearing needs: No Vision needs: Yes Meds Allergies Allergy/AdvReac Type Severity Reaction Status Date / Time lisinopril [LISINOPRIL] Allergy Intermediate COUGH, Verified 02/12/25 10:59 constant cough simvastatin [SIMVASTATIN] Allergy Mild Confusion Verified 02/12/25 10:59 Home Medications ?Medication ?Instructions ?Recorded ?Confirmed ?Last Taken ?Type cyanocobalamin (vitamin B-12) 1,000 mcg PO DAILY 08/12/20 02/12/25 12/24/22 History 1,000 mcg capsule THC oral drop PO .QHS 08/11/21 12/26/24 Unknown History topiramate 50 mg tablet 50 mg PO DAILY PRN LAU 05/29/22 02/12/25 Unknown History morphine 15 mg immediate release 7.5 - 15 mg PO Q4-6H PRN prn 02/27/24 02/12/25 Unknown History tablet Exam Height,Weight and Vital Signs: Height 5 ft 4 in Weight 61.235 kg Pertinent Lab Results Pertinent Lab Results: Laboratory Tests 10/08/24 14:31 WBC 5.5 Hgb 11.4 L Hct 35.9 L Plt Count 246 Sodium 138 Potassium 4.5 Chloride 107 Carbon Dioxide 25 BUN 14 Creatinine 1.04 Narrative Narrative: CT abdomen pelvis wo IV con 10/2024 IMPRESSION: Focal segmental wall thickening, sigmoid colon. Peristalsis versus neoplasm. Intraductal papillary mucinous neoplasm of the pancreas cannot be excluded. Cholelithiasis. Assessment and Plan Assessment Anesthesia Assessment: Chart Reviewed Final Anesthetic Review Family History of Problems with Anesthesia: No History of Problems with Anesthesia: No Documented by User: Yassine Griffith MD 02/12/25 11:22 PMF Past Medical History Medical History Atrial fibrillation PAF (paroxysmal atrial fibrillation) Dysphagia Diarrhea Atrial fibrillation with rapid ventricular response Acute respiratory failure Respiratory arrest Asthma exacerbation Radicular low back pain Polyarthralgia Scalp mass Colon cancer screening Breast cancer screening by mammogram RUQ pain Epigastric abdominal pain Chronic gastritis Chronic low back pain Tubular adenoma of colon Hypercholesterolemia Hypertension Vitamin D deficiency Asthma GERD (gastroesophageal reflux disease) Vitamin B12 deficiency Secondary malignant neoplasm of retroperitoneum and peritoneum History of DVT (deep vein thrombosis) Insomnia Family History Family History Father Myocardial infarction CVD (cardiovascular disease) Mother CVD (cardiovascular disease) Stroke Brother Myocardial infarction CVD (cardiovascular disease) Surgical History Surgical History History of excision of mass (~01/11/22) Hx of endoscopy History of colonoscopy Retroperitoneal liposarcoma History of nephroureterectomy History of back surgery History of section History of tubal ligation History of tonsillectomy Social History Social History Household Members: Spouse and Family Housing: House Are you a primary resident care coordinator to a significant other at home: No Do you presently have visiting nurse or other home services: No Alcohol intake: never Patient Tobacco Use Status: Never used Tobacco Tobacco use type: Cigarette e-Cigarette/Vaping Use: Never Used Second Hand Smoke Exposure: No Substance Use Type: Marijuana and Other Have you been hit, kicked, punched, or otherwise hurt by someone within the past year? If so, by whom?: No Are you DNR?: No Advance Directives: No Advance Directives Information Provided: Yes Poor oral hygiene: Yes service: No Current occupational status: retired Cognitive needs: No Hearing needs: No Vision needs: Yes Meds Allergies Allergy/AdvReac Type Severity Reaction Status Date / Time lisinopril [LISINOPRIL] Allergy Intermediate COUGH, Verified 02/12/25 10:59 constant cough simvastatin [SIMVASTATIN] Allergy Mild Confusion Verified 02/12/25 10:59 Home Medications ?Medication ?Instructions ?Recorded ?Confirmed ?Last Taken ?Type cyanocobalamin (vitamin B-12) 1,000 mcg PO DAILY 08/12/20 02/12/25 12/24/22 History 1,000 mcg capsule THC oral drop PO .QHS 08/11/21 12/26/24 Unknown History topiramate 50 mg tablet 50 mg PO DAILY PRN LAU 05/29/22 02/12/25 Unknown History morphine 15 mg immediate release 7.5 - 15 mg PO Q4-6H PRN prn 02/27/24 02/12/25 Unknown History tablet Exam Airway Mallampati Class: III TM Dist: >3cm Neck ROM: Full Partial: Upper and Lower Assessment and Plan Assessment Anesthesia Assessment: Anesthesia Plan Discussed Final Anesthetic Review NPO: Yes ASA Class: III Final Preanesthetic Review: No Changes in Pt Med Stat, Meds/Allgs Chart Reviewed, Consent Obtained/Reviewed and Anes Risks/Benef Reviewed Patient Risk: Intermediate Procedure Risk: Low Anesthetic Plan Anesthetic Plan: TIVA Disposition: Standard PACU
[2025-02-12 10:49] VITALS: BMI 21.9
[2025-02-12] MEDS: Lactated Ringers 1,000 ML 100 ML IVCONT (11:06)
[2025-02-12 11:14] VITALS: BP 154/76; PULSE 78; RESP 18; TEMP 36.7; O2SAT 100
--- NOTE | 2025-02-12 12:04 | MHC.SHP ---
Pre-Procedural Eval Section A - 24 Hr Update-Section A only Date of Service: 02/12/25 Section B - Complete if H&P > 30 days Chief Complaint: abdominal pain Relevant Family History (Specify if Yes): No Relevant Social History: None Present Medications: see Short Stay Collaborative assessment Medical History: Significant History (Atrial fibrillation Dysphagia Diarrhea Atrial fibrillation with rapid ventricular response Acute respiratory failure Respiratory arrest Asthma exacerbation Radicular low back pain Polyarthralgia Scalp mass Colon cancer screening Breast cancer screening by mammogram RUQ pain Epigastric abdominal pain) History of Previous Operations: Relevant previous surgery/procedure and date(s) ( History of excision of mass (~01/11/22) Hx of endoscopy History of colonoscopy Retroperitoneal liposarcoma History of nephroureterectomy History of back surgery History of section History of tubal ligation History of tonsillectomy) Allergies: Allergies Allergy/AdvReac Type Severity Reaction Status Date / Time lisinopril [LISINOPRIL] Allergy Intermediate COUGH, Verified 02/12/25 10:59 constant cough simvastatin [SIMVASTATIN] Allergy Mild Confusion Verified 02/12/25 10:59 Review of Systems Sugical H&P ROS: Negative: Constitution, Cardiovascular, Respiratory, Neurological, Psychiatric, Hem-Onc, Allergic/Immunologic, Gastrointestinal, Genitourinary, Musculoskeletal, Integumentary, Endocrine and Eyes/Ears/Nose/Throat Exam Surgical H&P Exam: Normal: HEENT, Normal: Heart, Normal: Lungs, Normal: Extremities, Normal: Abdomen, Normal: Skin and Normal: Neurological Plan Diagnosis/Plan: Unchanged I have reviewed the history and physical and performed a pertinent physical examination on my patient. No changes have occurred unless specified. Time Spent With Patient Time: Total time managing care of this patient today ____ minutes.
--- NOTE | 2025-02-12 12:31 | HO.OPN-COLON ---
Colonoscopy Operative Note Operative Note Date of Service: 02/12/25 Narrative: Operative Information Procedure Description: Colonoscopy Indication: abn bowel habits Anesthesia: MAC COLONOSCOPY Instrument: Olympus variable stiffness pediatric scope 190L Colonoscopy Monitoring: Vital signs and clinical assessment, continuous EKG monitoring, Pulse oximetry, Carbon Dioxide monitoring and blood pressure monitoring were done throughout the procedure. Colon withdrawal time was 8 minutes. Procedure: The patient was placed in the left lateral decubitis position and pre-procedure medications were administered. After a digital rectal examination of the ano-rectum, the video colonoscope was inserted into the rectum and advanced through the colon to the cecum/TI. The colonoscope was slowly withdrawn in a retrograde panoramic fashion and the colon mucosa was carefully examined including a retroflexed view of the rectum. Findings and interventions are described below. Procedure Difficulty: easy Findings: ileocolonic anasotmosis noted, bx taken from tej terminal ileum. 10 mm sessile noted and removed with cold snare, 4-5 mm sessile polyp removed with cold forceps random colon bx taken Transverse Colon -normal Descending Colon:normal Sigmoid Colon: mild diverticulosis noted Rectum: Retroflexion with small internal hemorrhoids, grade I with skin tags Anorectum - normal Colon preparation: [place] Bowel Preparation Scale Right colon; 2 Transverse colon: 1 Left colon; 2 (0 = Unprepared colon segment with mucosa not seen due to solid stool that cannot be cleared. 1 = Portion of mucosa of the colon segment seen, but other areas of the colon segment not well seen due to staining, residual stool and/or opaque liquid. 2 = Minor amount of residual staining, small fragments of stool and/or opaque liquid, but mucosa of colon segment seen well. 3 = Entire mucosa of colon segment seen well with no residual staining, small fragments of stool or opaque liquid) Impression and Post Procedure Diagnosis: Colonoscopy Findings: polyps x 2 internal hemorrhoids diverticular disease Plan: Await Pathology results Repeat Colonoscopy in 2-3 years due to prep or earlier if clinically indicated High fiber diet leaflet avoid straining at stool, epsom salts and sitz bath, anusol supps or cream cont with mesalamine restart anti coagulation 02/14/2025 Above findings were reviewed with the patient and relevant handouts were provided if indicated.
[2025-02-12 12:35] VITALS: BP 106/57; PULSE 70; RESP 12; TEMP 36.7; O2SAT 97
[2025-02-12 12:50] VITALS: BP 122/53; PULSE 76; RESP 16; TEMP 36.4; O2SAT 97
== END 2025-02-12 13:20 | disposition home or self-care (01) ==
PROVIDERS: PCP Internal Medicine; Visit Provider Internal Medicine Gastroenterology
PROC: 0DJD8ZZ Inspection of Lower Intestinal Tract, Via Natural or Artificial Opening Endoscopic (ICD-10-PCS; CPT 45378; principal; 2025-02-12 14:00)
DX: R19.4 Change in bowel habit (principal); R10.9 Unspecified abdominal pain; K51.40 Inflammatory polyps of colon without complications; K63.5 Polyp of colon; Z85.89 Personal history of malignant neoplasm of other organs and systems; Z90.49 Acquired absence of other specified parts of digestive tract; Z98.0 Intestinal bypass and anastomosis status; K57.30 Diverticulosis of large intestine without perforation or abscess without bleeding; K64.0 First degree hemorrhoids; K64.4 Residual hemorrhoidal skin tags; R19.7 Diarrhea, unspecified; R13.10 Dysphagia, unspecified; K86.89 Other specified diseases of pancreas; J96.00 Acute respiratory failure, unspecified whether with hypoxia or hypercapnia; I48.91 Unspecified atrial fibrillation; J45.909 Unspecified asthma, uncomplicated; Z86.718 Personal history of other venous thrombosis and embolism; Z79.891 Long term (current) use of opiate analgesic; Z79.01 Long term (current) use of anticoagulants; Z79.899 Other long term (current) drug therapy; Z88.8 Allergy status to other drugs, medicaments and biological substances; Z98.890 Other specified postprocedural states
CPT/HCPCS: 45385; 45380; 88305; J2003; J2704

== ENCOUNTER → 2025-02-12 10:16 | Outpatient (BNV) | payer BC, MEDICARE, SELFPAY | PROVIDERS: PCP Internal Medicine; Visit Provider Internal Medicine Gastroenterology | DX: R19.4 Change in bowel habit (principal); K57.30 Diverticulosis of large intestine without perforation or abscess without bleeding; K63.5 Polyp of colon; K64.8 Other hemorrhoids | CPT/HCPCS: 45380; 45385 ==

== ENCOUNTER 2025-03-02 11:31 | Outpatient (AMB) | payer BC, MEDICARE, SELFPAY ==
--- NOTE | 2025-03-02 11:40 | MHC.OFFVIS ---
Intake Visit Reasons: s/p colonoscopy Intake Note: Jeimy presents as a telehealth to go over results to her colonoscopy. 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 seen for f/u RECAP: index visit 02/2020 After she eats she feels full and it hurts pain is like an overating feeling, 6/10 severity, she waits for it to pass going on since Nov 2018 after right nephrectomy, partial colectomy, adrenal gland then had redo surgery March 2019 for obstruction she has diarrhea since surgery, no exacerbating or relieving factors, maybe worse with ice creams or sausage weight loss 70# over last year, she also takes fentanyl patch and dilaudid since Nov 2018 TESTS: colonoscopy 2009--polyp removed, tics plan was for EGD and GES but due to covid fears she wanted to hold, she was given trial fo movantik and cholestyramine finally had GES 05/2020-- normal at 4 hrs, slightly fast at 1 hr EGD 07/2020--- inflammed anastomotic rim bx gastric nodule, chronic inflammation, ulcerated, chronic inflammation stomach, fundic gland polyp, US 01/17/21--gallstones HIDA scan: 03/25- EF 32%, no acute cholecystitis she was taking movantik but stopped it as it made her go more often to toilet she was unabel to take cholestyramine due to need to take 4 hrs before meds was given trial of sucralfate advised on small freq meals, more fiber in diet I had increased PPI due to ongoing abdo pain she was holding off on GB surgery due to high risks miguelina given prior hx of surgeries, although she was having RUQ pain I gave her bentyl to see if would help she had ongoing RUQ pain, worse after eating a meal--given dilaudid by pain clinic EGD/colonoscopy:01/11/22 Endoscopy Findings: bile acid reflux related gastritis esophagitis esophageal strictures Colonoscopy Findings: polyp internal hemorrhoids diverticular disease balloon was done with small tear at LES Path: tubular adenoma focal enteritis esophagitis CT: 10/08/24 ?panc cyst, atheroscelrosis incl close to the celiac axis, thickened bowel in sigmoid, degenerative spinal changes INTERIM: Reviewed path from recent colonoscopy benign polyps, random bx were negative she could[place] get [place] [facility] [place] still taking mesalamine which is helps Assessment & Plan (1) possible panc cyst on CT, to me it looks more like overlying atherosclerosis 2/ abdominal pain with thickened sigmoid, recent colonoscopy reassuring PLAN: 1/ cont with mesalamine 2/ MR pancreas, try to get it at [place] -- has tip of stim left couldnt be done here [facility] Medical History Atrial fibrillation PAF (paroxysmal atrial fibrillation) Dysphagia Diarrhea Atrial fibrillation with rapid ventricular response Acute respiratory failure Respiratory arrest Asthma exacerbation Radicular low back pain Polyarthralgia Scalp mass Colon cancer screening Breast cancer screening by mammogram RUQ pain Epigastric abdominal pain Chronic gastritis Chronic low back pain Tubular adenoma of colon Hypercholesterolemia Hypertension Vitamin D deficiency Asthma GERD (gastroesophageal reflux disease) Vitamin B12 deficiency Secondary malignant neoplasm of retroperitoneum and peritoneum History of DVT (deep vein thrombosis) Insomnia Surgical History History of excision of mass (~01/11/22) Hx of endoscopy History of colonoscopy Retroperitoneal liposarcoma History of nephroureterectomy History of back surgery History of section History of tubal ligation History of tonsillectomy Family History Father Myocardial infarction CVD (cardiovascular disease) Mother CVD (cardiovascular disease) Stroke Brother Myocardial infarction CVD (cardiovascular disease) Social History Household Members: Spouse and Family Housing: House Are you a primary urgent care physician to a significant other at home: No Do you presently have visiting nurse or other home services: No Alcohol intake: never Patient Tobacco Use Status: Never used Tobacco Tobacco use type: Cigarette e-Cigarette/Vaping Use: Never Used Second Hand Smoke Exposure: No Substance Use Type: Marijuana and Other service: No Current occupational status: retired Cognitive needs: No Hearing needs: No Vision needs: Yes Assessment & Plan Assessment & Plan (1) Pancreatic stones: Code(s): K86.89 - Other specified diseases of pancreas Category: Medical Plan: ass above Coding Level of Care Code Est Pt Level 3 (76628) Diagnoses Pancreatic stones K86.89
== END 2025-03-02 16:30 | disposition home or self-care (01) ==
LOC: HO.HGI 11:31
PROVIDERS: PCP Internal Medicine; Visit Provider Internal Medicine Gastroenterology
DX: K86.89 Other specified diseases of pancreas (principal)
CPT/HCPCS: 99213

== ENCOUNTER → 2025-03-02 11:31 | Outpatient (BNVA) | payer BC, MEDICARE, SELFPAY | PROVIDERS: PCP Internal Medicine; Visit Provider Internal Medicine Gastroenterology ==

== ENCOUNTER 2025-04-03 14:43 | Outpatient (AMB) | payer MEDICARE, BC, SELFPAY ==
[2025-04-03 14:56] VITALS: BP 124/78; PULSE 80; O2SAT 98; BMI 22.7
--- NOTE | 2025-04-03 14:56 | MHC.PC.OV ---
Vital Signs 04/03/25 14:56 Height 5 ft 4 in Weight 132 lb BMI 22.7 BP 124/78 Blood Pressure Location Lt brachial Position Sitting Pulse 80 Pulse Source Pulse Oximeter Pulse Oximetry (%) 98 Oxygen Delivery Method Room Air Intake Visit Reasons: pancreatic mass Allergies lisinopril [LISINOPRIL] Allergy (Intermediate, Verified 04/03/25 14:56) COUGH, constant cough simvastatin [SIMVASTATIN] Allergy (Mild, Verified 04/03/25 14:56) Confusion Tobacco use date assessed: 12/26/24 Fall risk assessment: No Falls in past year Last assessed Fall Risk: 04/03/25 Dental Screening Dental Screen Date: 12/26/24 HPI pancreatic mass HPI Details form filled out patient still complains of having post prandial pain, seeing gastro in june for the pancreatic stone. for the asthma- need refill [facility] Medical History Atrial fibrillation PAF (paroxysmal atrial fibrillation) Dysphagia Diarrhea Atrial fibrillation with rapid ventricular response Acute respiratory failure Respiratory arrest Asthma exacerbation Radicular low back pain Polyarthralgia Scalp mass Colon cancer screening Breast cancer screening by mammogram RUQ pain Epigastric abdominal pain Chronic gastritis Chronic low back pain Tubular adenoma of colon Hypercholesterolemia Hypertension Vitamin D deficiency Asthma GERD (gastroesophageal reflux disease) Vitamin B12 deficiency Secondary malignant neoplasm of retroperitoneum and peritoneum History of DVT (deep vein thrombosis) Insomnia Surgical History History of excision of mass (~01/11/22) Hx of endoscopy History of colonoscopy Retroperitoneal liposarcoma History of nephroureterectomy History of back surgery History of section History of tubal ligation History of tonsillectomy Family History Father Myocardial infarction CVD (cardiovascular disease) Mother CVD (cardiovascular disease) Stroke Brother Myocardial infarction CVD (cardiovascular disease) Social History Household Members: Spouse and Family Housing: House Are you a primary director long term care to a significant other at home: No Do you presently have visiting nurse or other home services: No Alcohol intake: never Patient Tobacco Use Status: Never used Tobacco Tobacco use type: Cigarette e-Cigarette/Vaping Use: Never Used Second Hand Smoke Exposure: No Substance Use Type: Marijuana and Other service: No Current occupational status: retired Cognitive needs: No Hearing needs: No Vision needs: Yes Questionnaire PHQ-9 Over the last 2 weeks, how often have you been bothered by any of the following problems? 1. Little interest or pleasure in doing things: more than half the days 2. Feeling down, depressed, or hopeless: more than half the days 3. Trouble falling or staying asleep, or sleeping too much: more than half the days 4. Feeling tired or having little energy: more than half the days 5. Poor appetite or overeating: not at all 6. Feeling bad about yourself - or that you are a failure or have let yourself or your family down: not at all 7. Trouble concentrating on things, such as reading the newspaper or watching television: not at all 8. Moving or speaking so slowly that other people could have noticed. Or the opposite - being so fidgety or restless that you have been moving around a lot more than usual: not at all 9. Thoughts that you would be better off or of hurting yourself in some way: not at all Total score: 8 Depression Screening Interpretation: Positive Depression Screening Done: Yes Source: Developed by Drs. Juventino Harper, Kaelyn Bruno, Ajay Briggs and colleagues, with an educational lake from [employer]. Thrive Questionnaire Date Thrive assessed: 12/26/24 I am a: Patient What is your living situation today?: I have a steady place to live Within the past 12 months, did the food you bought not last and you didn't have the money to get more?: Never true Within the past 12 months, did you worry whether your food would run out before you got money to buy more?: Never true Do you have trouble paying for medicines?: I choose not to answer this question Do you have trouble getting transportation to medical appointments?: No Do you have trouble paying your heating and electricity bill?: No Do you have trouble taking care of your child, family member or friend?: No Do you have trouble with day-to-day activities such as bathing, preparing meals, shopping, managing finances, etc.?: No Are you currently unemployed and looking for a job?: No Are you interested in more education?: No Please select the resources that you would like help with: None Currently or been in a relationship where the following occur: No concerns reported THRIVE Score: 0 AUDIT C Alcohol Use Questionnaire (AUDIT-C) 1. How often do you have a drink containing alcohol?: Never 3. How often do you have six or more drinks on one occasion?: Never Total Score: 0 TYLER-7 AMB Questionnaire TYLER-7 Date TYLER - 7 assessed: 12/26/24 Feeling nervous, anxious, or on edge: 0 = Not at all Not being able to stop or control worryin = Not at all Worrying too much about different things: 0 = Not at all Trouble relaxin = Not at all Being so restless that it is hard to sit still: 0 = Not at all Becoming easily annoyed or irritable: 0 = Not at all Feeling afraid as if something awful might happen: 0 = Not at all Total TYLER-7 score (0-4 normal; 5-9 mild; 10-14 moderate; 15-21 severe): 0 Source: Developed by Drs. Juventino Harper, Kaelyn Bruno, Ajay Briggs and colleagues, with an educational lake from [employer]. Physical exam (Primary Care) Vital Signs: Last Vital Signs Pulse 80 04/03/25 14:56 BP 124/78 04/03/25 14:56 Pulse Ox 98 04/03/25 14:56 Oxygen Delivery Method Room Air 04/03/25 14:56 BMI result Body Mass Index 22.7 Tobacco/Smoking Status: Tobacco use Status Tobacco use date assessed 12/26/24 04/03/25 15:02 Patient Tobacco Use Status Never used Tobacco 04/03/25 15:02 Tobacco use type Cigarette 04/03/25 15:02 e-Cigarette/Vaping Use Never Used 04/03/25 15:02 PHQ-9: PHQ-9 Score PHQ-9: Total score 8 04/03/25 15:22 Depression Screening Interpretation: Positive Thrive Assessment: Date of Thrive Assessment Date Thrive assessed 12/26/24 04/03/25 15:02 Currently or been in a relationship where the following occur: No concerns reported Const General: alert; No acute distress Eyes Conjunctivae: conjunctivae normal Resp Auscultation: clear to auscultation bilaterally Cardio Rate: regular rate Rhythm: regular rhythm GI Inspection: Yes normal to inspection Extrem General: Yes normal to inspection and No edema Coding Level of Care Code Est Pt Level 4 (34297) Complex EM visit Add On G2211 Diagnoses Pancreatic stones K86.89 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 (3) Secondary malignant neoplasm of retroperitoneum and peritoneum: Comment: retroperitoneal mass biopsy spindle cell neoplasm July 2018 right retroperitoneal liposarcoma radiation and radical abdominal resection November 2018, right nephroureterectomy right right drip throw peritoneal sarcoma resection right adrenalectomy, right colectomy with primary anastomosis small-bowel resection duodenal patch with ileum over 1/3 duodenum [facility] thrombosis lysis of her adhesions small-bowel resection ileocolic, retrocolic, gastrojejunostomy, gastric J-tube placement mar 25 2019 Code(s): C78.6 - Secondary malignant neoplasm of retroperitoneum and peritoneum Category: Medical Plan: patient follows up with [facility] for pain control (4) Recurrent major depression: Comment: Private counsellor Code(s): F33.9 - Major depressive disorder, recurrent, unspecified Category: Medical Plan: continue with counseling and therapy (5) GERD (gastroesophageal reflux disease): Code(s): K21.9 - Gastro-esophageal reflux disease without esophagitis Category: Medical Qualifiers: Esophagitis presence: without esophagitis Qualified Code(s): K21.9 - Gastro-esophageal reflux disease without esophagitis Plan: Avoid the foods that causes that usually spicy foods, tomato products, juices, coffee, soda and foods that your sensitive to. After eating do not lie down, allow 3-4 hours before in lie down. And keep the head of bed above 30 degrees to avoid the acid from going up. (6) Osteopenia: Code(s): M85.80 - Other specified disorders of bone density and structure, unspecified site Category: Medical Plan History of Present Illness The patient is a 75-year-old female presenting for follow-up examination regarding her chronic conditions. She has a documented history of chronic low back pain with prior neurosurgical interventions, and a past diagnosis of secondary malignant neoplasm involving the retroperitoneum and peritoneum, managed with extensive surgical treatment in 2019. She also has a history of asthma and past cardiac arrest incidents, as well as deep vein thrombosis. She reports chronic intermittent abdominal pain, notably postprandial, for which morphine has been administered, though not used for her chronic back pain. The medical history involves pancreatic stones, with ongoing gastroenterology follow-ups. She received medical updates from [facility] regarding focal arthritis in February 2025, and her blood work in October was indicative of mild anemia, with no abnormalities in platelet count, or renal and liver function. Her LDL cholesterol was recorded at 82. The current therapy includes mesalamine to manage inflammation, complemented by dietary recommendations focusing on fiber. Vaccinations were discussed, notably regarding shingles prevention and a tetanus booster from 2012. Screening updates include the need for a bone density test due to a history of osteopenia, with mammograms due for scheduling. Health Maintenance - Shingles vaccine discussed as preventative but not required; recommended completion of series. - Tetanus vaccination updated in 2012, with reminder that booster is due within routine guidelines. - Colonoscopy is up to date. - Mammogram and bone density screenings are overdue; mammography declined but agrees to bone density test due to osteopenia history. Social History - No family planning details or education level discussed. - Lacks specific information on occupation or housing. - Engages in some level of nutritional intake discussion, mentioning increased fiber intake. - No substance use or exercise habits mentioned. Review of Systems - Gastrointestinal: Reports chronic intermittent abdominal pain, primarily postprandial. - Hematologic: Denies any abnormal bleeding tendencies. Mild anemia noted in lab work. - Neurological/Musculoskeletal: Reports focal arthritis, chronic low back pain. - Respiratory: Previous history of asthma discussed. Physical Exam Results - Labs: Mild anemia, normal platelet count, normal electrolytes, normal renal function, normal liver function. Recent LDL cholesterol of 82. Plan During this visit, the management plan was tailored to the patient's chronic conditions and health maintenance needs. Ongoing strategies for her chronic low back pain remain in place with no new prescriptions; her previous secondary malignant neoplasm continues to be monitored post-surgery. Asthma needs are addressed with no acute changes. Cardiovascular health vigilance is maintained due to her cardiac arrest and DVT history, while chronic intermittent abdominal pain is actively managed with continued morphine use and dietary fiber adjustments. Regular gastroenterology follow-ups address her history of pancreatic stones, and counseling and therapy are available overlapping with pain control support at [facility]. Emphasis on preventive care included discussing vaccinations and scheduling pending screenings; while mammography was declined, bone density testing was agreed upon reflecting her osteopenia history. Mild anemia noted requires ongoing observation, with mesalamine included for anti-inflammatory treatment. Patient was informed and verbally consented to the use of an ambient scribe for clinic note documentation during this visit. Discussion Notes I reviewed the patient's multiple chronic conditions and structured a comprehensive management plan. For her chronic low back pain and post-operative status of her malignant neoplasm, interventions remain stable. We discussed the importance of ongoing asthma control, cardiovascular monitoring due to cardiac arrest history, and management of DVT. Particular attention was given to her chronic intermittent abdominal pain, emphasizing continued use of morphine and dietary fiber supplementation. I ensured understanding of the necessity for gastroenterological care concerning pancreatic stones and pain management therapies. I highlighted preventive health measures, including reminders about the shingles vaccine and discussed colonoscopy updates. Mammography was declined, but bone density testing was supported given previous osteopenia. The importance of addressing mild anemia in recent labs was noted, and the role of mesalamine as an anti-inflammatory was clarified. I provided guidance for following up with relevant specialists and maintaining our recommended care strategies. Patient Instructions - Continue using prescribed morphine for abdominal pain management. - Increase dietary fiber intake as suggested. - Follow up with gastroenterology as planned. - Schedule bone density testing due to previous osteopenia findings. - Maintain routine blood work to monitor mild anemia. - Discuss vaccination history and needs, including tetanus booster timing. - Adhere to any dietary or lifestyle modifications advised during this visit. form filled for the patient regarding disability Orders: Orders XR DEXA axial skeleton Today K21.9 - Gastro-esophageal reflux disease without esophagitis, M81.0 - Age-related osteoporosis without current pathological fracture Referrals Psychiatry Referral F33.9 - Major depressive disorder, recurrent, unspecified
== END 2025-04-03 15:39 | disposition home or self-care (01) ==
LOC: HO.HMCH 14:43
PROVIDERS: PCP Internal Medicine; Visit Provider Internal Medicine
DX: K86.89 Other specified diseases of pancreas (principal); M47.816 Spondylosis without myelopathy or radiculopathy, lumbar region; C78.6 Secondary malignant neoplasm of retroperitoneum and peritoneum; F33.9 Major depressive disorder, recurrent, unspecified; K21.9 Gastro-esophageal reflux disease without esophagitis; M85.80 Other specified disorders of bone density and structure, unspecified site

== ENCOUNTER → 2025-04-03 14:43 | Outpatient (BNVA) | payer BC, MEDICARE, SELFPAY | PROVIDERS: PCP Internal Medicine; Visit Provider Internal Medicine | DX: M47.816 Spondylosis without myelopathy or radiculopathy, lumbar region (principal); K86.89 Other specified diseases of pancreas; F33.9 Major depressive disorder, recurrent, unspecified; K21.9 Gastro-esophageal reflux disease without esophagitis; M85.80 Other specified disorders of bone density and structure, unspecified site | CPT/HCPCS: 96127; 99212 ==

== ENCOUNTER 2025-05-12 13:23 | Outpatient (REF) | payer BC, MEDICARE, SELFPAY ==
--- NOTE | ~2025-05-12 | MM_ITS ---
EXAMINATION: DXA BONE DENSITY AXIAL HISTORY: M81.0 - Age-related osteoporosis without current pathological fracture TECHNIQUE: [place] Dual energy absorptiometry (DEXA) of the lumbar spine, total left hip, and femoral neck was performed. COMPARISON: Comparison is made with the prior examination dated 11/23/2021. FINDINGS: The bone mineral density of the lumbar spine is 1.197 g/cm2, corresponding to a T-score of 0.3, and a Z-score of 2.2. This is indicative of normal bone mineral density. This represents a BMD change of 2.0% compared to the prior exam. This is not statistically significant. The bone mineral density of the left total hip is 0.790 g/cm2, corresponding to a T-score of -1.7, and a Z-score of 0.2. This is indicative of osteopenia. This represents a BMD change of 3.5% compared to the prior exam. This is not statistically significant. The bone mineral density of the left femoral neck is 0.749 g/cm2, corresponding to a T-score of -2.1, and a Z-score of 0.0. This is indicative of osteopenia. This represents a BMD change of 0.5% compared to the prior exam. FRACTURE RISK: The FRAX index suggests a ten year probability of major osteoporotic fracture of 13.4%, and of hip fracture 3.8%. MM/XR DEXA axial skeleton IMPRESSION: Based on bone mineral density, and according to World Health Organization (WHO) criteria, the diagnosis is consistent with osteopenia. Statistically, 68% of repeat scans fall within 1 SD (+/- 0.010 g/cm2 for AP spine L1-L4) and 1 SD (+/- 0.012 g/cm2 for femur total) FRAX is a trademark of the [employer]'s [place] [facility] [employer], a World Health Organization (WHO) Collaborating Center. Electronically signed by: Juventino De La Paz MD 05/12/2025 01:56 PM EDT
== END 2025-05-12 13:24 | disposition home or self-care (01) ==
LOC: HO.MAMMO 13:23
PROVIDERS: PCP Internal Medicine; Visit Provider Internal Medicine
DX: M81.0 Age-related osteoporosis without current pathological fracture (principal); K21.9 Gastro-esophageal reflux disease without esophagitis
CPT/HCPCS: 77080

== ENCOUNTER → 2025-05-12 13:30 | Outpatient (BNV) | payer BC, MEDICARE, SELFPAY | PROVIDERS: PCP Internal Medicine; Visit Provider Radiology Diagnostic Radiology | DX: E28.39 Other primary ovarian failure (principal) | CPT/HCPCS: 77080 ==

== ENCOUNTER 2025-06-08 13:49 | Outpatient (AMB) | payer BC, MEDICARE, SELFPAY ==
--- NOTE | 2025-06-08 13:57 | MHC.PC.OV ---
Vital Signs 06/08/25 13:58 Height 5 ft 4 in Weight 125 lb 6 oz BMI 21.5 BP 124/64 Blood Pressure Location Lt brachial Position Sitting Respiration 18 Pulse 75 Pulse Source Pulse Oximeter Temp 96.4 F L Temp Source Temporal Artery Scan Pulse Oximetry (%) 96 Oxygen Delivery Method Room Air Intake Visit Reasons: RT Cataract procedure 07/02 Non Destructive Testing Technician Required: No Accompanied by: Self / Same As Patient Allergies lisinopril (LISINOPRIL) Allergy (Intermediate, Verified 06/08/25 14:23) COUGH, constant cough simvastatin (SIMVASTATIN) Allergy (Mild, Verified 06/08/25 14:23) Confusion Medication List - Last Reconciled 06/08/25 by JAMIE Burgos albuterol sulfate INHALE 2 VIALS (6ML) VIA NEBULIZER 4 TIMES A DAY NEEDED FOR WHEEZE/SHORTNESS OF BREATH albuterol sulfate 90 mcg/actuation 2 puffs PO Q4H PRN cholecalciferol (vitamin D3) 50 mcg PO DAILY cyanocobalamin (vitamin B-12) 1,000 mcg PO DAILY cyclobenzaprine 10 mg PO BID PRN duloxetine 60 mg PO DAILY fluticasone propion-salmeterol 113-14 mcg/actuation 1 inh inhalation BID mesalamine ER 1.5 grams (4 x 0.375 gram) PO QAM montelukast (Singulair) 10 mg PO DAILY morphine 7.5 - 15 mg PO Q4-6H PRN nebulizers (Aeroneb Go Nebulizer) As directed updraft treatment every 4 hours p.r.n. prochlorperazine maleate 5 mg PO TID PRN topiramate 50 mg PO DAILY PRN zolpidem 10 mg PO BEDTIME PRN 90 days Tobacco use date assessed: 06/08/25 Fall risk assessment: No Falls in past year Last assessed Fall Risk: 06/08/25 Dental Screening Dental Screen Date: 06/08/25 Did you have a dental visit in the last 12 months?: No Did you have a dental problem in the last 6 months where you did not have access to dental care?: No Was dental information given to patient?: No HPI RT Cataract procedure 07/02 HPI Details The patient is a 75-year-old female presenting with cataracts. She has been experiencing significant vision impairment since December, with rapid progression leading to difficulty seeing indoors and recognizing people unless they are wearing bright clothing. The patient has a history of atrial fibrillation, which was previously managed with Eliquis until it was discontinued by cardiology approximately a year ago due to no further episodes. She reports occasional irregular heartbeats but has been reassured by prior testing that indicated no current issues. The patient also has a history of asthma, which she reports is well-controlled with minimal symptoms. She experiences chronic abdominal pain, primarily in the stomach, which is persistent throughout the day. Previous evaluations revealed pancreatic stones, but surgical intervention was deemed too risky due to her extensive surgical history and past cancer diagnosis. A recent bone density test indicated osteopenia, prompting discussions on maintaining bone health through calcium and vitamin D supplementation, as well as weight-bearing exercises. Surgeon/location: Dr. Briones at [facility] Date: Right eye 07/02/2025, left eye 07/23/2025 Anesthesia: Mac. The patient had similar anesthesia management before without any complications or adverse reactions. The patient denies any post surgery hypothermia or clotting disorder. The patient is not on any blood thinner. Had history of AFib that was noted to have resolved and she was taken off her blood thinner by Cardiology. [facility] Medical History (Updated 06/10/25 @ 08:23 by JAMIE Burgos) Atrial fibrillation Cataracts, both eyes PAF (paroxysmal atrial fibrillation) Dysphagia Diarrhea Atrial fibrillation with rapid ventricular response Acute respiratory failure Respiratory arrest Asthma exacerbation Radicular low back pain Polyarthralgia Scalp mass Colon cancer screening Breast cancer screening by mammogram RUQ pain Epigastric abdominal pain Chronic gastritis Chronic low back pain Tubular adenoma of colon Hypercholesterolemia Hypertension Vitamin D deficiency Asthma GERD (gastroesophageal reflux disease) Vitamin B12 deficiency Secondary malignant neoplasm of retroperitoneum and peritoneum History of DVT (deep vein thrombosis) Insomnia Surgical History History of excision of mass (~01/11/22) Hx of endoscopy History of colonoscopy Retroperitoneal liposarcoma History of nephroureterectomy History of back surgery History of section History of tubal ligation History of tonsillectomy Family History Father Myocardial infarction CVD (cardiovascular disease) Mother CVD (cardiovascular disease) Stroke Brother Myocardial infarction CVD (cardiovascular disease) Social History Household Members: Spouse and Family Housing: House Are you a primary patient care technician instructor to a significant other at home: No Do you presently have visiting nurse or other home services: No Alcohol intake: never Patient Tobacco Use Status: Never used Tobacco Tobacco use type: Cigarette e-Cigarette/Vaping Use: Never Used Second Hand Smoke Exposure: No Substance Use Type: Marijuana and Other service: No Current occupational status: retired Cognitive needs: No Hearing needs: No Vision needs: Yes Questionnaire PHQ-9 Over the last 2 weeks, how often have you been bothered by any of the following problems? 1. Little interest or pleasure in doing things: more than half the days 2. Feeling down, depressed, or hopeless: more than half the days 3. Trouble falling or staying asleep, or sleeping too much: several days 4. Feeling tired or having little energy: several days 5. Poor appetite or overeating: nearly every day 6. Feeling bad about yourself - or that you are a failure or have let yourself or your family down: several days 7. Trouble concentrating on things, such as reading the newspaper or watching television: not at all 8. Moving or speaking so slowly that other people could have noticed. Or the opposite - being so fidgety or restless that you have been moving around a lot more than usual: not at all 9. Thoughts that you would be better off or of hurting yourself in some way: not at all Total score: 10 Source: Developed by Drs. Juventino Harper, Kaelyn Bruno, Ajay Briggs and colleagues, with an educational lake from [employer]. Thrive Questionnaire Date Thrive assessed: 04/03/25 I am a: Patient What is your living situation today?: I have a steady place to live Within the past 12 months, did the food you bought not last and you didn't have the money to get more?: Never true Within the past 12 months, did you worry whether your food would run out before you got money to buy more?: Never true Do you have trouble paying for medicines?: I choose not to answer this question Do you have trouble getting transportation to medical appointments?: No Do you have trouble paying your heating and electricity bill?: No Do you have trouble taking care of your child, family member or friend?: No Do you have trouble with day-to-day activities such as bathing, preparing meals, shopping, managing finances, etc.?: No Are you currently unemployed and looking for a job?: No Are you interested in more education?: No Please select the resources that you would like help with: None Currently or been in a relationship where the following occur: No concerns reported THRIVE Score: 0 AUDIT C Alcohol Use Questionnaire (AUDIT-C) 1. How often do you have a drink containing alcohol?: Never 3. How often do you have six or more drinks on one occasion?: Never Total Score: 0 TYLER-7 AMB Questionnaire TYLER-7 Date TYLER - 7 assessed: 12/26/24 Feeling nervous, anxious, or on edge: 0 = Not at all Not being able to stop or control worryin = Not at all Worrying too much about different things: 0 = Not at all Trouble relaxin = Not at all Being so restless that it is hard to sit still: 0 = Not at all Becoming easily annoyed or irritable: 0 = Not at all Feeling afraid as if something awful might happen: 0 = Not at all Total TYLER-7 score (0-4 normal; 5-9 mild; 10-14 moderate; 15-21 severe): 0 Source: Developed by Drs. Juventino Harper, Kaelyn Bruno, Ajay Briggs and colleagues, with an educational lake from [employer]. Review of Systems Const Denies headache(s) Eyes Denies loss of vision ENT Denies vertigo, Denies dizziness, Denies headache(s) and Denies sore throat Card Denies chest pain, Denies leg edema, Denies lightheadedness and Reports dyspnea (Asthma well-controlled on current treatment) Resp Denies cough, Denies hemoptysis, Reports dyspnea (Asthma well-controlled on current treatment) and Denies wheezing GI Reports abdominal pain (Chronic, pancreatic mass), Denies melena, Denies constipation, Denies diarrhea and Denies vomiting Denies urinary frequency, Denies dysuria and Denies urinary urgency Musc Reports back pain (Chronic), Denies arthralgias, Denies joint swelling, Denies numbness and Denies tingling Neuro Denies Abnormal speech present, Denies behavioral changes, Denies vertigo, Denies dizziness, Denies headache(s), Denies loss of vision, Denies memory loss, Denies numbness and Denies tingling Psych Denies anxiety, Denies behavioral changes, Denies depression, Denies memory loss and Denies panic attacks Joseph/Lymph Denies easy bleeding and Denies easy bruising Aller/Immun Denies wheezing Physical exam (Primary Care) Vital Signs: Last Vital Signs Temp 96.4 F L 06/08/25 13:58 Pulse 75 06/08/25 13:58 Resp 18 06/08/25 13:58 BP 124/64 06/08/25 13:58 Pulse Ox 96 06/08/25 13:58 Oxygen Delivery Method Room Air 06/08/25 13:58 BMI result Body Mass Index 21.5 Tobacco/Smoking Status: Tobacco use Status Tobacco use date assessed 06/08/25 06/08/25 14:12 Patient Tobacco Use Status Never used Tobacco 06/08/25 14:12 Tobacco use type Cigarette 06/08/25 14:12 e-Cigarette/Vaping Use Never Used 06/08/25 14:12 PHQ-9: PHQ-9 Score PHQ-9: Total score 10 06/10/25 08:14 Thrive Assessment: Date of Thrive Assessment Date Thrive assessed 04/03/25 06/08/25 14:12 Currently or been in a relationship where the following occur: No concerns reported Const General: healthy appearing, no acute distress, alert and awake Nutritional Appearance: well nourished Orientation/consciousness: oriented to person, oriented to place and oriented to time [facility] Ears: TM's normal bilaterally General nose exam: Normal nasal mucous membranes and turbinates present Eyes Conjunctivae: conjunctivae normal Sclerae: sclerae normal Pupils: Equal, round and reactive pupils present Neck Neck: Yes no lymphadenopathy and Yes no JVD Thyroid: Thyroid normal Carotids: no bruits Resp Effort & Inspection: normal respiratory effort and not tachypneic Auscultation: no crackles, no rales, no rhonchi and no wheezes Cardio Rate: regular rate Rhythm: regular rhythm Heart sounds: S1 normal heart sound present, S2 normal heart sound present, no murmurs and normal S1 and S2 GI Palpation (GI): Soft to palpation, Tenderness to palpation present (GI) in the LUQ, no hepatomegaly and no splenomegaly Auscultation: normal bowel sounds Skin General skin exam: no rashes or lesions noted and dry skin Neuro General: oriented to person, oriented to place and oriented to time Cranial nerves: Yes Equal, round and reactive pupils present Speech: No Abnormal speech present Gait exam (Neuro): Normal gait present Motor exam (neuro): no tremor noted Extrem Right upper extremity: full ROM Left upper extremity: full ROM Right lower extremity: full ROM; no edema Left lower extremity: full ROM; no edema Psych Mental Status: mental status grossly normal Speech and movement: Normal speech and movement present Affect: normal affect Attitude: cooperative Thought process: Normal thought process present Results Reviewed Results Reviewed: Laboratory Tests 10/08/24 06/18/25 06/18/25 14:31 12:52 12:58 WBC 5.5 RBC 4.49 Hgb 11.4 L Hct 35.9 L MCV 80.0 MCH 25.4 L MCHC 31.8 RDW 19.2 H Plt Count 246 PT 11.0 INR 1.0 Sodium 142 Potassium 4.5 Chloride 113 H Carbon Dioxide 23 Anion Gap 11 L BUN 15 Creatinine 1.37 Estimated GFR 37 Random Glucose 83 Estimat Average Glucose 131 Hemoglobin A1c % 6.2 H Calcium 9.5 D Total Bilirubin 0.2 AST 31 ALT 35 H Alkaline Phosphatase 83 Total Creatine Kinase 88 CK-MM (CK-3) 100 Total Protein 5.3 L Albumin 3.5 TSH 3.81 Urine Color Yellow Urine Appearance Clear Urine pH 5.0 Ur Specific [place] 1.020 Urine Protein Negative Urine Glucose (UA) Negative Urine Ketones Negative Urine Blood Negative Urine Nitrite Negative Ur Leukocyte Esterase Negative [place] [id number] Electrocardiograph Report Signed Patient: Maru Patel MR#: [id number] : 1950 Acct:[id number] Age/Sex: 75 / F ADM Date: 06/18/25 Loc: HO.LAB Attending Dr: Jovany AYALA Ordering Physician: Jovany Villa Date of Service: 06/18/25 Procedure(s): ECG 12 lead EKG Accession Number(s): [id number] cc: Villa,Jovany LOOM STARTER-C~ Test Reason : pre op Blood Pressure : */* mmHG Vent. Rate : 69 BPM Atrial Rate : 69 BPM P-R Int : 138 ms QRS Dur : 88 ms QT Int : 392 ms P-R-T Axes : 75 59 87 degrees QTcB Int : 420 ms Normal sinus rhythm Nonspecific T wave abnormality Abnormal ECG When compared with ECG of 26-Dec-2022 05:40, Sinus rhythm has replaced Atrial fibrillation Vent. 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: Coding Level of Care Code Est Pt Level 4 (17347) Diagnoses Preoperative clearance Z01.818 Mild intermittent asthma without complication J45.20 Asthma complication type: uncomplicated Asthma persistence: intermittent Asthma severity: mild Degeneration of intervertebral disc of lumbar region, unspecified whether pain present M51.369 Disc-related pain type: unspecified whether pain present Pancreatic stones K86.89 Cardiac arrest I46.9 Atrial fibrillation, unspecified type I48.91 Atrial fibrillation type: unspecified Time Spent (min) 39 Assessment & Plan Assessment & Plan (1) Preoperative clearance: Code(s): Z01.818 - Encounter for other preprocedural examination Category: Medical Plan: Regarding preop clearance, the patient is at acceptable risk for proposed surgery. Reviewed with the patient that no surgery is completely free of risk and that this examination is to assist the surgeon in reviewing informed consent. (2) Asthma: Code(s): J45.909 - Unspecified asthma, uncomplicated Category: Medical Qualifiers: Asthma complication type: uncomplicated Asthma persistence: intermittent Asthma severity: mild Qualified Code(s): J45.20 - Mild intermittent asthma, uncomplicated Plan: Asthma is controlled on current treatment regimen Continue albuterol sulfate 90 mcg/actuation 2 puffs q.4 H p.r.n., fluticasone propion-salmeterol 113-14 mcg/actuation 1 inhalation b.i.d., Singulair 10 mg daily, nebulizer treatment p.r.n. (3) Lumbar degenerative disc disease: Comment: Code(s): M51.36 - Other intervertebral disc degeneration, lumbar region Category: Medical Qualifiers: Disc-related pain type: unspecified whether pain present Qualified Code(s): M51.369 - Other intervertebral disc degeneration, lumbar region without mention of lumbar back pain or lower extremity pain Plan: Lumbar x-ray on 01/23/2024 showed: Advanced multilevel degenerative disc disease most notable at L2-L3, L4-L5 and L5-S1. 2. Facet arthritis in the lower lumbar spine. 3. Grade 1 retrolisthesis of L1 on L2 and L2 on L3. Grade 1-2 anterolisthesis of L4 on L5. Continue duloxetine 60 mg daily, cyclobenzaprine 10 mg b.i.d. p.r.n.. Continue conservative treatments like heat/cold compress alternating with 20 minutes on each interval (4) Pancreatic stones: Code(s): K86.89 - Other specified diseases of pancreas Category: Medical Plan: She experiences chronic abdominal pain, primarily in the stomach, which is persistent throughout the day. Previous evaluations revealed pancreatic stones, but surgical intervention was deemed too risky due to her extensive surgical history and past cancer diagnosis. Continue morphine 7.5-15 mg Q 4-6 hours p.r.n. for pain management (5) Cardiac arrest: Code(s): I46.9 - Cardiac arrest, cause unspecified Category: Medical Plan: 2022 the patient has sustained a cardiac arrest suspected to be respiratory in nature that to cardiac arrest. 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 Echocardiogram with hyperdynamic LVEF. No wall motion abnormalities. Pharmacological stress perfusion imaging study was unremarkable. (6) Atrial fibrillation: Comment: Resolved Code(s): I48.91 - Unspecified atrial fibrillation Category: Medical Qualifiers: Atrial fibrillation type: unspecified Qualified Code(s): I48.91 - Unspecified atrial fibrillation Plan: This happened around the time of the cardiac arrest in 2022. Holter monitor shows no recurrence. The patient was on Eliquis but was actually on it for DVT. Cardiology saw no specific need for anticoagulation Plan The patient's asthma is well-controlled, and no changes to her current management are necessary at this time. Regarding her abdominal pain and pancreatic stones, surgical intervention is not recommended due to previous surgeries and cancer history. Pain management will continue with current medications, and any changes will be based on symptom progression. For osteopenia, the patient is advised to maintain adequate calcium and vitamin D intake and engage in weight-bearing exercises to preserve bone density. Patient was informed and verbally consented to the use of an ambient scribe for clinic note documentation during this visit. Orders: Orders TSH reflex Free T4 06/08/25 Z.818 - Encounter for other preprocedural examination ECG 12 lead EKG 06/08/25 Z.818 - Encounter for other preprocedural examination CK, Total+Isoenzymes, Serum 06/08/25 Z. - Encounter for other preprocedural examination Comprehensive Met. Panel 06/08/25 Z.818 - Encounter for other preprocedural examination UA CC w/rflx Micro + Cult 06/08/25 Z.818 - Encounter for other preprocedural examination Hemoglobin A1c 06/08/25 Z.818 - Encounter for other preprocedural examination Prothrombin Time INR 06/08/25 Z.818 - Encounter for other preprocedural examination
[2025-06-08 13:58] VITALS: BP 124/64; PULSE 75; RESP 18; TEMP 35.8; O2SAT 96; BMI 21.5
--- OUTSIDE RECORDS SUMMARY | 2025-06-08 14:02 | XMS_ITS | Encounter Summary ---
Author Organization [facility] Address [address] [place] [id number] Phone Care Team Providers Care Material Liaison Name Role Phone Chiara Diggs MD Primary Care Provider [phone] Joelle Grande MD, MS Unavailable Oly Kraus MD, MPH Unavailable Valerie Conti MD Unavailable [phone] Daryn Donohue MD Unavailable [phone] Savanna Banegas Unavailable Cris Aburto CHANNELER Unavailable [phone] Arlin Cherry CHANNELER Unavailable [phone] Shun Schuster MD Unavailable Portia [email or web address] Jaspal Pettit MD Unavailable Joelle Grande MD, MS Unavailable Danuta Patel MD Unavailable [phone] Encounter Details Date Type Department Care Team (Late st Contact Info) Description 04/07/2020 Procedure [facility], [facility], [place] [address] [facility], Floor [address] [place] [address] Social History Tobacco Use Types Packs/Day Years Used Date Smoking Tobacco: Former Cigarettes 0.5 3 0 11/1965 - 11/1968 Smokeless Tobacco: Never Alcohol Use Standard Drinks/Week Comments No 0 (1 standard drink = 0.6 oz pur e alcohol) Comments No Sex and Gender Information Value Date Recorded Sex Assigned at Female 01/04/2022 6:00 PM EST Legal Sex Female 2:07 PM EDT Gender Identity Female 01/04/2022 6:00 PM EST Sexual Orientation Not on file documented as of this encounter Plan of Treatment Upcoming Encounters Date Type Department Care Team (Late st Contact Info) Description 07/02/2024 Procedure Pass [facility] Imaging Department, [facility], [place] [address] [facility], [facility] [address] [place] [address] 07/02/2024 Procedure Pass [facility] Imaging Department, [facility], [place] [address] [facility], [facility] [address] [place] [address] 06/20/2025 10:30 AM EDT Appointment [facility] Imaging Department, [facility], [place] [address] [facility], [facility] [address] [place] [address] Danuta Patel MD [address] [place] [id number] [email or web address] 06/24/2025 2:30 PM EDT [facility], [address], [address] [place] [address] Danuta Patel MD [address] [place] [id number] [email or web address] documented as of this encounter Visit Diagnoses Not on filedocumented in this encounter Additional Health Concerns 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 02/28/2019 12/20/2022 1:[address] CoV-Presumed Comment:12/12: Symptom onset- fatigue, ST, cough, SOB 12/13: positive PCR outside lab (needs to be uploaded to [facility])- Yohana Noble RN 12/12/2021 12/13/2021 01/01/2022 1:[address] Assessment Noted Time PHQ-2 Depression Total Score: 0 11/12/19 1:45 PM EST documented as of this encounter Care Teams Material Liaison Relationship Specialty Start Date End Date Chiara Diggs MD [address] [place] [address] [address] [place] [phone] PCP - General Internal Medicine 07/25/18 Joelle Grande MD, MS [address] [place] [id number] JOSÉ [email or web address] Surgeon Surgical Oncology 08/15/18 Oly Kraus MD, MPH [address] [place] [phone] [email or web address] Primary Oncologist Radiation Oncology 08/15/18 Valerie Conti MD [address] [place] [id number] [email or web address] Primary Oncologist Medical Oncology 08/15/18 04/11/20 Daryn Donohue MD [address] [place] [phone] Referring Physician Urology 08/19/18 Savanna Banegas [address] [place] [id number] [email or web address] Tile Installer 08/19/18 Cris Aburto, [facility] [address] [place] [address] [email or web address] Behavioral Health Counselor 12/26/18 Arlin Cherry, [facility] [address] [place] [address] [email or web address] Behavioral Health Counselor Oncology 07/26/19 Shun Schuster MD [email or web address] Primary Oncologist Medical Oncology 04/12/20 06/21/21 Jaspal Ordoñez MD [address] [place] [phone] Palliative Care 12/22/20 Joelle Grande MD, MS [address] [place] [phone] JOSÉ [email or web address] Surgical Oncology 03/07/21 Danuta Patel MD [address] [place] [address] [email or web address] Medical Oncology 06/22/21 documented as of this encounter Additional Source Comments The information contained in this document represents components of the legal health record. It is not the complete legal health record.[facility]
== END 2025-06-08 14:51 | disposition home or self-care (01) ==
LOC: HO.HMCH 13:50
PROVIDERS: PCP Internal Medicine
DX: I46.9 Cardiac arrest, cause unspecified (principal); I48.91 Unspecified atrial fibrillation; Z01.818 Encounter for other preprocedural examination; J45.20 Mild intermittent asthma, uncomplicated; M51.369 Other intervertebral disc degeneration, lumbar region without mention of lumbar back pain or lower extremity pain; K86.89 Other specified diseases of pancreas

== ENCOUNTER 2025-06-18 12:40 | Outpatient (REF) | payer MEDICARE, BC, SELFPAY ==
--- NOTE | 2025-06-18 13:07 | ECG_ITS ---
Test Reason : pre op Blood Pressure : */* mmHG Vent. Rate : 69 BPM Atrial Rate : 69 BPM P-R Int : 138 ms QRS Dur : 88 ms QT Int : 392 ms P-R-T Axes : 75 59 87 degrees QTcB Int : 420 ms Normal sinus rhythm Nonspecific T wave abnormality Abnormal ECG When compared with ECG of 26-Dec-2022 05:40, Sinus rhythm has replaced Atrial fibrillation Vent. rate has decreased by [address] no longer depressed in Lateral leads Nonspecific T wave abnormality no longer evident in Inferior leads T wave inversion now evident in Anterior leads Nonspecific T wave abnormality has replaced inverted T waves in Lateral leads Referred By: Jovany Villa Electronically Signed By: Kash Dobbins
[2025-06-18 13:15] LABS: INTERNATIONAL NORM RATIO 1.0 (0.9-1.1); Prothrombin Time 11.0 SEC (10.9-12.4)
[2025-06-18 13:21] LABS: Hemoglobin A1C 133.4859 umol/L; Total Hemoglobin (HGBA1C) 3033.6330 umol/L
--- OUTSIDE RECORDS SUMMARY | 2025-06-18 13:23 | XMS_ITS | Encounter Summary ---
Author Organization [facility] Address [address] [place] [address] Phone Care Team Providers Care Oil And Gas Field Technician Name Role Phone Chiara Diggs MD Primary Care Provider [phone] Joelle Grande MD, MS Unavailable Oly Kraus MD, MPH Unavailable Valerie Conti MD Unavailable [phone] Daryn Donohue MD Unavailable [phone] Savanna Banegas Unavailable Cris Aburto FABRIC LAY OUT WORKER Unavailable [phone] Arlin Cherry FABRIC LAY OUT WORKER Unavailable [phone] Shun Schuster MD Unavailable Portia [email or web address] Jaspal Pettit MD Unavailable Joelle Grande MD, MS Unavailable Danuta Patel MD Unavailable [phone] Encounter Details Date Type Department Care Team (Late st Contact Info) Description 04/07/2020 Procedure Pass [facility], [facility] [place], [place] [address] [facility], Floor [address] [place] [address] Social History Tobacco Use Types Packs/Day Years [...] st Contact Info) Description 07/02/2024 Procedure Pass [facility] Imaging Department, [facility], [place] [address] [facility], [facility] [address] [place] [address] 07/02/2024 Procedure Pass [facility] Imaging Department, [facility] [place] [address] [facility], [facility] [address] [place] [address] 06/20/2025 10:30 AM EDT Hospital Encounter [facility] Imaging Department, [facility], [place] [address] [facility], [facility] [address] [place] [address] Danuta Patel MD [address] [place] [address] [email or web address] 06/24/2025 2:30 PM EDT [facility], [address], 6th [place] [address] Danuta Patel MD [address] [place] [phone] [email or web address] documented as of this encounter Visit Diagnoses Not on filedocumented in this encounter Additional Health Concerns 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 02/28/2019 12/20/2022 1:[address] CoV-Presumed Comment:12/12: Symptom onset- fatigue, ST, cough, SOB 12/13: positive PCR outside lab (needs to be uploaded to [facility])- Yohana Noble RN 12/12/2021 12/13/2021 01/01/2022 1:[address] Assessment Noted Time PHQ-2 Depression Total Score: 0 11/12/19 1:45 PM EST documented as of this encounter Care Teams Oil And Gas Field Technician Relationship Specialty Start Date End Date Chiara Diggs MD [address] [place] [address] [address] [place] [phone] PCP - General Internal Medicine 07/25/18 Joelle Grande MD, MS [address] [place] [address] JOSÉ MANUEL@[email or web address] Surgeon Surgical Oncology 08/15/18 Oly Kraus MD, MPH [address] [place] [address] [email or web address] Primary Oncologist Radiation Oncology 08/15/18 Valerie Conti MD [address] [place] [address] [email or web address] Primary Oncologist Medical Oncology 08/15/18 04/11/20 Daryn Donohue MD [address] [place] [address] Referring Physician Urology 08/19/18 Savanna Banegas [address] [place] [address] NESTOR@[email or web address] Blueprint Processor 08/19/18 Cris Aburto, [facility] [address] [place] [address] [email or web address] Coater Hand 12/26/18 Arlin Cherry, [address] [address] Maykel@[facility] Coater Hand Oncology 07/26/19 Shun Schuster MD Rohan@[email or web address] Primary Oncologist Medical Oncology 04/12/20 06/21/21 Jaspal Ordoñez MD [address] [place] [address] Palliative Care 12/22/20 Joelle Grande MD, MS [address] [place] [address] JOSÉ MANUEL@[facility] Surgical Oncology 03/07/21 Danuta Patel MD [address] [place] [address] Agnes@[facility] Medical Oncology 06/22/21 documented as of this encounter Additional Source Comments The information contained in this document represents components of the legal health record. It is not the complete legal health record.[facility]
[2025-06-18 14:05] LABS: Alanine Aminotransferase 35 U/L (0-31); Albumin Level 3.5 g/dL (3.5-5.0); Alkaline Phosphatase 83 U/L (39-117); Anion Gap 11 (12-20); Aspartate Amino Transferase 31 U/L (5-31); Blood Urea Nitrogen 15 mg/dL (9-16); Calcium 9.5 mg/dL (8.4-10.2); Carbon Dioxide 23 mmol/L (22-29); Chloride 113 mmol/L (96-108); Estimated Glomerular Filt Rate 37; Potassium 4.5 mmol/L (3.3-5.1); Sodium 142 mmol/L (135-145); Total Protein 5.3 g/dL (6.5-8.0)
[2025-06-18 14:13] LABS: Appearance Urine Clear; Glucose Urine UA Negative (Negative); PH 5.0 (5.0-9.0); Specific Gravity - Urine 1.020 (1.005-1.025)
[2025-06-21 23:43] LABS: CK-BB None Detected (None Detected); CK-MB 0 % (<5); CK-MM 100 % (95-100); Creatine Kinase,Total,Serum 88 U/L (18-225)
== END 2025-06-18 12:41 | disposition home or self-care (01) ==
LOC: HO.LAB 12:40
PROVIDERS: PCP Internal Medicine
DX: Z01.818 Encounter for other preprocedural examination (principal); Z13.1 Encounter for screening for diabetes mellitus; Z13.29 Encounter for screening for other suspected endocrine disorder
CPT/HCPCS: 36415; 80053; 81003; 82552; 83036; 84443; 85610; 93005

== ENCOUNTER → 2025-06-18 13:07 | Outpatient (BNV) | payer MEDICARE, BC, SELFPAY | PROVIDERS: PCP Internal Medicine; Visit Provider Internal Medicine Cardiovascular Disease | DX: R94.31 Abnormal electrocardiogram [ECG] [EKG] (principal); Z01.810 Encounter for preprocedural cardiovascular examination | CPT/HCPCS: 93010 ==

== ENCOUNTER 2025-06-29 13:07 | Outpatient (AMB) | payer BC, MEDICARE, SELFPAY ==
--- NOTE | 2025-06-29 13:08 | A.OFFVIS_ITS ---
Vital Signs 06/29/25 13:16 Height 5 ft 4 in Weight 119 lb 0.794 oz BMI 20.4 BP 137/67 Blood Pressure Location Lt brachial Position Sitting Pulse 73 Intake Visit Reasons: 5 mo f/u Intake Note: Maru presents in the office as a 5 month follow up. CC: worried because she is having weight loss. She states that her stomach is always hurting - her appetite is NOT an issue. 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 RECAP: index visit 02/2020 After she eats she feels full and it hurts pain is like an overating feeling, 6/10 severity, she waits for it to pass going on since Nov 2018 after right nephrectomy, partial colectomy, adrenal gland then had redo surgery March 2019 for obstruction she has diarrhea since surgery, no exacerbating or relieving factors, maybe worse with ice creams or sausage weight loss 70# over last year, she also takes fentanyl patch and dilaudid since Nov 2018 TESTS: colonoscopy 2009--polyp removed, tics plan was for EGD and GES but due to covid fears she wanted to hold, she was given trial fo movantik and cholestyramine finally had GES 05/2020-- normal at 4 hrs, slightly fast at 1 hr EGD 07/2020--- inflammed anastomotic rim bx gastric nodule, chronic inflammation, ulcerated, chronic inflammation stomach, fundic gland polyp, US 01/17/21--gallstones HIDA scan: 03/25- EF 32%, no acute cholecystitis she was taking movantik but stopped it as it made her go more often to toilet she was unabel to take cholestyramine due to need to take 4 hrs before meds was given trial of sucralfate advised on small freq meals, more fiber in diet I had increased PPI due to ongoing abdo pain she was holding off on GB surgery due to high risks miguelina given prior hx of surgeries, although she was having RUQ pain I gave her bentyl to see if would help she had ongoing RUQ pain, worse after eating a meal--given dilaudid by pain clinic EGD/colonoscopy:01/11/22 Endoscopy Findings: bile acid reflux related gastritis esophagitis esophageal strictures Colonoscopy Findings: polyp internal hemorrhoids diverticular disease balloon was done with small tear at LES Path: tubular adenoma focal enteritis esophagitis CT: 10/08/24 ?panc cyst, atheroscelrosis incl close to the celiac axis, thickened bowel in sigmoid, degenerative spinal changes Colonoscopy 02/27: polyps x 2 internal hemorrhoids diverticular disease INTERIM: losing weight without trying she is eating a lot, always hungry stool is always loose hard to flush not taking pancreas supplements she is taking mesalamine, unsure if helping EXAM: GENERAL: The patient is well developed and nontoxic. VITAL SIGNS:see workflow HEENT: Nonicteric sclerae, PERRLA, EOMI. Oropharynx clear. Moist mucous membranes. Conjunctivae appear well perfused. No thyroid mass. CHEST: Chest wall is nontender. HEART: Regular rate and rhythm without murmurs. LUNGS: Clear to auscultation bilaterally. ABDOMEN: Soft, positive bowel sounds, tender epigastric area, no organomegaly.no flank tenderness SKIN: No rash, no excessive bruising, petechiae, or purpura. NEUROLOGIC: Cranial nerves II-XII intact without motor/sensory deficit. Psych: normal affect Assessment & Plan (1) possible panc cyst on CT, to me it looks more like overlying atherosclerosis 2/ abdominal pain with thickened sigmoid, colonoscopy was reassuring PLAN: 1/ she is unsure if she had the MRI--will check with [facility]--if unable to have then repeat CT, 2/ check fecal elastase and fecal fat 3/ trial of creon and see if helps 4/ CXR due to hx of second hand smoke exposure [facility] Medical History Atrial fibrillation Cataracts, both eyes PAF (paroxysmal atrial fibrillation) Dysphagia Diarrhea Atrial fibrillation with rapid ventricular response Acute respiratory failure Respiratory arrest Asthma exacerbation Radicular low back pain Polyarthralgia Scalp mass Colon cancer screening Breast cancer screening by mammogram RUQ pain Epigastric abdominal pain Chronic gastritis Chronic low back pain Tubular adenoma of colon Hypercholesterolemia Hypertension Vitamin D deficiency Asthma GERD (gastroesophageal reflux disease) Vitamin B12 deficiency Secondary malignant neoplasm of retroperitoneum and peritoneum History of DVT (deep vein thrombosis) Insomnia Surgical History History of excision of mass (~01/11/22) Hx of endoscopy History of colonoscopy Retroperitoneal liposarcoma History of nephroureterectomy History of back surgery History of section History of tubal ligation History of tonsillectomy Family History Father Myocardial infarction CVD (cardiovascular disease) Mother CVD (cardiovascular disease) Stroke Brother Myocardial infarction CVD (cardiovascular disease) Social History Household Members: Spouse and Family Housing: House Are you a primary resident care technician to a significant other at home: No Do you presently have visiting nurse or other home services: No Alcohol intake: never Patient Tobacco Use Status: Never used Tobacco Tobacco use type: Cigarette e-Cigarette/Vaping Use: Never Used Second Hand Smoke Exposure: No Substance Use Type: Marijuana and Other service: No Current occupational status: retired Cognitive needs: No Hearing needs: No Vision needs: Yes Physical Exam Vital Signs: Last Vital Signs Pulse 73 06/29/25 13:16 BP 137/67 06/29/25 13:16 BMI result Body Mass Index 20.4 Assessment & Plan Assessment & Plan (1) Weight loss, abnormal: Code(s): R63.4 - Abnormal weight loss Category: Medical Plan: as above Orders: Orders XR chest 2V Today R63.4 - Abnormal weight loss Pancreatic Elastase-1 Today R63.4 - Abnormal weight loss Fecal Fat Qualitative Today R63.4 - Abnormal weight loss Medications: New slyzsi-pjzsvnwk-catvtni 12,000-38,000 -60,000 unit (Creon) administer with meals and/or snacks 2 caps PO TID 180 caps 0RF Coding Level of Care Code Est Pt Level 3 (23726) Diagnoses Weight loss, abnormal R63.4
[2025-06-29 13:16] VITALS: BP 137/67; PULSE 73; BMI 20.4
--- OUTSIDE RECORDS SUMMARY | 2025-06-29 14:26 | XMS_ITS | Encounter Summary ---
Author Organization [facility] Address [address] [place] [address] Phone Care Team Providers Care Early Interventionist Name Role Phone Chiara Diggs MD Primary Care Provider [phone] Joelle Grande MD, MS Unavailable Oly Kraus MD, MPH Unavailable Valerie Conti MD Unavailable [phone] Daryn Donohue MD Unavailable [phone] Savanna Banegas Unavailable Cris Aburto CYCLE ANALYST Unavailable [phone] Arlin Cherry CYCLE ANALYST Unavailable [phone] Shun Schuster MD Unavailable Portia [email or web address] Jaspal Pettit MD Unavailable Joelle Grande MD, MS Unavailable Danuta Patel MD Unavailable [phone] Encounter Details Date Type Department Care Team (Late st Contact Info) Description 04/07/2020 Procedure Pass [facility], [facility] [place], [place] [address] [facility], Floor [address]1 [place] [address] Social History Tobacco Use Types Packs/Day Years [...] st Contact Info) Description 07/02/2024 Procedure Pass [facility] Imaging Department, [facility], [place] [address] [facility], [facility] [address]1 [place] [address] 07/02/2024 Procedure Pass [facility] Imaging Department, [facility], [place] [address] [facility], [facility] [address] [place] [address] 07/25/2025 1:40 PM EDT Appointment [facility] Imaging Department, [facility], [place] [address] [facility], [facility] [address] [place] [address] Danuta Patel MD [address] [place] [phone] Agnes@[email or web address] 07/29/2025 10:30 AM EDT Telemedicine [facility], [address], 6th [place] [address] Danuta Patel MD [address] [place] [phone] Agnes@[email or web address] documented as of this encounter Visit Diagnoses Not on filedocumented in this encounter Additional Health Concerns 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 02/28/2019 12/20/2022 1:[address] CoV-Presumed Comment:12/12: Symptom onset- fatigue, ST, cough, SOB 12/13: positive PCR outside lab (needs to be uploaded to [facility])- Yohana Noble RN 12/12/2021 12/13/2021 01/01/2022 1:[address] Assessment Noted Time PHQ-2 Depression Total Score: 0 11/12/19 1:45 PM EST documented as of this encounter Care Teams Early Interventionist Relationship Specialty Start Date End Date Chiara Diggs MD [address] [place] [address] [address] [place] [phone] PCP - General Internal Medicine 07/25/18 Joelle Grande MD, MS [address] [place] [address] JOSÉ MANUEL@[facility] Surgeon Surgical Oncology 08/15/18 Oly Kraus MD, MPH [address] [place] [phone] [email or web address] Primary Oncologist Radiation Oncology 08/15/18 Valerie Conti MD [address] [place] [address] [email or web address] Primary Oncologist Medical Oncology 08/15/18 04/11/20 Daryn Donohue MD [address] [place] [address] Referring Physician Urology 08/19/18 Savanna Banegas [address] [place] [address] NESTOR@[facility] Equipment Installer 08/19/18 Cris Aburto, [facility] [address] [place] [address] [email or web address] Electrical Accessories Assembler 12/26/18 Arlin Cherry, [facility] [address] [place] [address] Maykel@[facility] Electrical Accessories Assembler Oncology 07/26/19 Shun Schuster MD Rohan@[email or web address] Primary Oncologist Medical Oncology 04/12/20 06/21/21 Jaspal Ordoñez MD [address] [place] [address] Palliative Care 12/22/20 Joelle Grande MD, MS [address] [place] [address] JOSÉ MANUEL@[facility] Surgical Oncology 03/07/21 Danuta Patel MD [address] [place] [address] Agnes@[email or web address] Medical Oncology 06/22/21 documented as of this encounter Additional Source Comments The information contained in this document represents components of the legal health record. It is not the complete legal health record.[facility]
--- OUTSIDE RECORDS SUMMARY | 2025-06-29 14:26 | XMS_ITS | Encounter Summary ---
Author Organization [facility] Address [address] [place] [address] Phone Care Team Providers Care Wood Milling Machine Operator Name Role Phone Chiara Diggs MD Primary Care Provider [phone] Joelle Grande MD, MS Unavailable Oly Kraus MD, MPH Unavailable Daryn Donohue MD Unavailable Savanna Banegas Unavailable Cris Aburto INDUSTRY ANALYST Unavailable [phone] Arlin Cherry INDUSTRY ANALYST Unavailable [phone] Jaspal Ordoñez MD Unavailable Joelle Grande MD, MS Unavailable Danuta Patel MD Unavailable [phone] Encounter Details Date Type Department Care Team (Late st Contact Info) Description 04/10/2023 Procedure Pass [facility]oscopy Admitting Dept Virtual Department [address] [place] [address] Social History Tobacco Use Types Packs/Day Years Used Date Smoking Tobacco: Former Cigarettes 0.5 3 0 11/1965 - 11/1968 Smokeless Tobacco: Never Alcohol Use Standard Drinks/Week Comments No 0 (1 standard drink = 0.6 oz pur e alcohol) Education Answer Date Recorded Are you interested in more education? Not on dimitry e 03/02/2023 Are you concerned about learning? Not on file 03/02/2023 No 03/02/2023 No 03/02/2023 Digital Access Answer Date Recorded No 03/29/2023 No 03/29/2023 Reliable internet access at home? Not on file 03/29/2023 Device with a working camera? Not on file Comments No Sex and Gender Information Value Date Recorded Sex Assigned at Female 01/04/2022 6:00 PM EST Legal Sex Female 2:07 PM EDT Gender Identity Female 01/04/2022 6:00 PM EST Sexual Orientation Not on file documented as of this encounter Plan of Treatment Upcoming Encounters Date Type Department Care Team (Late st Contact Info) Description 07/02/2024 Procedure Pass [facility] Imaging Department, [facility], [place] [address] [facility], Floor L1 [place] [address] 07/02/2024 Procedure Pass [facility] Imaging Department, [facility], [address], Floor [address]1 [place] [address] 07/25/2025 1:40 PM EDT Appointment [facility] Imaging Department, [facility], [place] [address] [facility], Floor [address]1 [place] [address] Danuta Patel MD [address] [place] [phone] Agnes@[facility] 07/29/2025 10:30 AM EDT Telemedicine [facility], [address], 6th [place] [address] Danuta Patel MD [address] [place] [address] Agnes@[facility] documented as of this encounter Visit Diagnoses Not on filedocumented in this encounter Additional Health Concerns Assessment Noted Time PHQ-2 Depression Total Score: 0 11/12/19 20 1:45 PM EST documented as of this encounter Care Teams Wood Milling Machine Operator Relationship Specialty Start Date End Date Chiara Diggs MD [address] [place] [address] [place] [phone] PCP - General Internal Medicine 07/25/18 Joelle Grande MD, MS [address] [place] [phone] JOSÉ MANUEL@[facility] Surgeon Surgical Oncology 08/15/18 Oly Kraus MD, MPH [address] [place] [phone] Lolis@[email or web address] Primary Oncologist Radiation Oncology 08/15/18 Daryn Donohue MD [address] [place] [address] Referring Physician Urology 08/19/18 Savanna Banegas [address] [place] [address] NESTOR@[facility] Blocking Machine Operator Second 08/19/18 Cris Aburto, [facility] [address] [place] [address] [email or web address] Partner Manager 12/26/18 Arlin Cherry, [facility] [address] [place] [address] Maykel@[email or web address] Partner Manager Oncology 07/26/19 Jaspal Ordoñez MD [address] [place] [address] Palliative Care 12/22/20 Joelle Grande MD, MS [address] [place] [address] JOSÉ MANUEL@[email or web address] Surgical Oncology 03/07/21 Danuta Patel MD [address] [place] [address] Agnes@[email or web address] Medical Oncology 06/22/21 documented as of this encounter Additional Source Comments The information contained in this document represents components of the legal health record. It is not the complete legal health record.[facility]
--- OUTSIDE RECORDS SUMMARY | 2025-06-29 14:26 | XMS_ITS | Encounter Summary ---
Author Organization [facility] Address [address] [place] [address] Phone Care Team Providers Care Preanalytics Team Lead Name Role Phone Chiara Diggs MD Primary Care Provider [phone] Joelle Grande MD, MS Unavailable Oly Kraus MD, MPH Unavailable Daryn Donohue MD Unavailable [phone] Savanna Banegas Unavailable Cris Aburto STUDENT SUPPORT SERVICES DIRECTOR Unavailable [phone] Arlin Cherry STUDENT SUPPORT SERVICES DIRECTOR Unavailable [phone] Shun Schuster MD Unavailable Portia [email or web address] Jaspal Pettit MD Unavailable Joelle Grande MD, MS Unavailable Danuta Patel MD Unavailable [phone] Encounter Details Date Type Department Care Team (Late st Contact Info) Description 12/22/2020 [facility], [facility] [place], [place] [address] [facility], Floor [address]1 [place] [address] Social History Tobacco Use Types Packs/Day Years [...] st Contact Info) Description 07/02/2024 Procedure Pass [facility] Imaging Department, [facility], [place] [address] [facility], Floor [address]1 [place] [address] 07/02/2024 Procedure Pass [facility] Imaging Department, [facility] [place] [address] [facility], Floor [address]1 [place] [address] 07/25/2025 1:40 PM EDT Appointment [facility] Imaging Department, [facility] [place] [address] [facility], Floor [address]1 [place] [address] Danuta Patel MD [address] [place] [address] Agnes@[facility] 07/29/2025 10:30 AM EDT [facility], [address], 6th [place] [address] Danuta Patel MD [address] [place] [address] Agnes@[facility] documented as of this encounter Visit Diagnoses Not on filedocumented in this encounter Additional Health Concerns 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 02/28/2019 12/20/2022 1:[address] CoV-Presumed Comment:2/7: Symptom onset- fatigue, ST, cough, SOB 12/13: positive PCR outside lab (needs to be uploaded to Epic)- Yohana Noble RN 12/12/2021 12/13/2021 01/01/2022 1:[address] Assessment Noted Time PHQ-2 Depression Total Score: 0 11/12/19 1:45 PM EST documented as of this encounter Care Teams Preanalytics Team Lead Relationship Specialty Start Date End Date Chiara Diggs MD [address] [place] [address] [place] [phone] PCP - General Internal Medicine 07/25/18 Joelle Grande MD, MS [address] [place] [address] JOSÉ MANUEL@[facility] Surgeon Surgical Oncology 08/15/18 Oly Kraus MD, MPH [address] [place] [address] [email or web address] Primary Oncologist Radiation Oncology 08/15/18 Daryn Donohue MD [address] [place] [address] Referring Physician Urology 08/19/18 Savanna Banegas [address] [place] [address] NESTOR@[email or web address] Marine Resource Economist 08/19/18 Cris Aburto, [address] [address] [email or web address] Truss Puller Helper 12/26/18 Arlin Cherry, [address] [address] Mayekl@[email or web address] Truss Puller Helper Oncology 07/26/19 Shun Schuster MD [email or web address] Primary Oncologist Medical Oncology 04/12/20 06/21/21 Jaspal Ordoñez MD [address] [place] [address] [email or web address] Palliative Care 12/22/20 Joelle Grande MD, MS [address] [place] [address] JOSÉ MANUEL@[email or web address] Surgical Oncology 03/07/21 Danuta Patel MD [address] [place] [address] [email or web address] Medical Oncology 06/22/21 documented as of this encounter Additional Source Comments The information contained in this document represents components of the legal health record. It is not the complete legal health record.[facility]
--- OUTSIDE RECORDS SUMMARY | 2025-06-29 14:26 | XMS_ITS | Encounter Summary ---
Author Organization [facility] Address [address] [place] [address] Phone Care Team Providers Care Client Service Manager Name Role Phone Chiara Diggs MD Primary Care Provider [phone] Joelle Grande MD, MS Unavailable Oly Kraus MD, MPH Unavailable Daryn Donohue MD Unavailable Savanna Banegas Unavailable Cris Aburto TURKEY FARMER Unavailable [phone] Arlin Cherry TURKEY FARMER Unavailable [phone] Jaspal Odroñez MD Unavailable Joelle Grande MD, MS Unavailable Danuta Patel MD Unavailable [phone] Encounter Details Date Type Department Care Team (Late st Contact Info) Description 09/27/2022 Procedure [facility] [place] [place] [address] [facility], Floor [address]1 [place] [address] Social History Tobacco Use Types Packs/Day Years [...] Contact Info) Description 07/02/2024 Procedure Pass [facility] Imaging Department, [facility], [place] [address] [facility], Floor [address]1 [place] [address] 07/02/2024 Procedure Pass [facility] Imaging Department, [facility] [place] [address] [facility], Floor [address]1 [place] [address] 07/25/2025 1:40 PM EDT Appointment [facility] Imaging Department, [facility] [place] [address] [facility], Floor [address]1 [place] [address] Danuta Patel MD [address] [place] [address] Agnes@[facility] 07/29/2025 10:30 AM EDT [facility], [address], 6th [place] [address] Danuta Patel MD [address] [place] [phone] Agnes@[facility] documented as of this encounter Visit Diagnoses Not on filedocumented in this encounter Additional Health Concerns 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 02/28/2019 12/20/2022 1:[address] Assessment Noted Time PHQ-2 Depression Total Score: 0 11/12/19 1:45 PM EST documented as of this encounter Care Teams Client Service Manager Relationship Specialty Start Date End Date Dontae Chiara Crandall MD [address] [place] [address] Drive [address] [place] [phone] PCP - General Internal Medicine 07/25/18 Joelle Grande MD, MS [address] [place] [address] JOSÉ MANUEL@[facility] Surgeon Surgical Oncology 08/15/18 lOy Kraus MD, MPH [address] [place] [address] Lolis@[facility] Primary Oncologist Radiation Oncology 08/15/18 Daryn Donohue MD [address] [place] [address] Referring Physician Urology 08/19/18 Savanna Banegas [address] [place] [address] NESTOR@[email or web address] Central Lab Technician 08/19/18 Cris Aburto, [address] [address] [email or web address] Malt Liquors Sales Representative 12/26/18 Arlin Cherry, [facility] [address] [place] [address] Maykel@[email or web address] Malt Liquors Sales Representative Oncology 07/26/19 Jaspal Ordoñez MD [address] [place] [address] [email or web address] Palliative Care 12/22/20 Joelle Grande MD, MS [address] [place] [address] JOSÉ MANUEL@[email or web address] Surgical Oncology 03/07/21 Danuta Patel MD [address] [place] [address] [email or web address] Medical Oncology 06/22/21 documented as of this encounter Additional Source Comments The information contained in this document represents components of the legal health record. It is not the complete legal health record.[facility]
--- OUTSIDE RECORDS SUMMARY | 2025-06-29 14:26 | XMS_ITS | Encounter Summary ---
Author Organization [facility] Address [address] [place] [address] Phone Care Team Providers Care Immigration Law Specialist Name Role Phone Chiara Diggs MD Primary Care Provider [phone] Joelle Grande MD, MS Unavailable Oly Kraus MD, MPH Unavailable Daryn Donohue MD Unavailable Savanna Banegas Unavailable Cris Aburto ABRASIVE MIXER Unavailable [phone] Arlin Cherry ABRASIVE MIXER Unavailable [phone] Shun Schuster MD Unavailable Portia [email or web address] Jaspal Pettit MD Unavailable Joelle Gradne MD, MS Unavailable Danuta Patel MD Unavailable [phone] Encounter Details Date Type Department Care Team (Late st Contact Info) Description 08/25/2020 Procedure Pass [facility] [address] [place] [address] Social History Tobacco Use Types Packs/Day Years [...] st Contact Info) Description 07/02/2024 Procedure Pass [facility] Imaging Department, [facility], [place] [address] [facility], Floor [address]1 [place] [address] 07/02/2024 Procedure Pass [facility] Imaging Department, [facility] [place] [address] [facility], Floor [address]1 [place] [address] 07/25/2025 1:40 PM EDT Appointment [facility] Imaging Department, [facility], [place] [address] [facility], Floor [address] [place] [address] Danuta Patel MD [address] [place] [address] Agnes@[email or web address] 07/29/2025 10:30 AM EDT [facility], [address], 6th [place] [address] Danuta Patel MD [address] [place] [address] Agnes@[email or web address] documented as of this encounter Visit Diagnoses [...] documented as of this encounter Care Teams Immigration Law Specialist Relationship Specialty Start Date End Date Chiara Diggs MD [address] [place] [address] [place] [phone] PCP - General Internal Medicine 07/25/18 Joelle Grande MD, MS [address] [place] [address] JOSÉ MANUEL@[facility] Surgeon Surgical Oncology 08/15/18 Oly Kraus MD, MPH [address] [place] [phone] [email or web address] Primary Oncologist Radiation Oncology 08/15/18 Daryn Donohue MD [address] [place] [address] Referring Physician Urology 08/19/18 Savanna Banegas [address] [place] [address] NESTOR@[facility] Assembly Cleaner 08/19/18 Cris Aburto, [facility] [address] [place] [address] [email or web address] Surveying Teacher 12/26/18 Arlin Cherry, [facility] [address] [place] [address] Maykel@[facility] Surveying Teacher Oncology 07/26/19 Shun Schuster MD Rohan@[email or web address] Primary Oncologist Medical Oncology 04/12/20 06/21/21 Jaspal Ordoñez MD [address] [place] [address] [email or web address] Palliative Care 12/22/20 Joelle Grande MD, MS [address] [place] [address] JOSÉ MANUEL@[email or web address] Surgical Oncology 03/07/21 Danuta Patel MD [address] [place] [address] [email or web address] Medical Oncology 06/22/21 documented as of this encounter Additional Source Comments The information contained in this document represents components of the legal health record. It is not the complete legal health record.[facility]
--- OUTSIDE RECORDS SUMMARY | 2025-06-29 14:26 | XMS_ITS | Encounter Summary ---
Author Organization [facility] Address [address] [place] [address] Phone Care Team Providers Care Pin Or Clip Fastener Name Role Phone Chiara Diggs MD Primary Care Provider [phone] Joelle Grande MD, MS Unavailable Oly Kraus MD, MPH Unavailable Valerie Conti MD Unavailable [phone] Daryn Donohue MD Unavailable [phone] Savanna Banegas Unavailable Cris Aburto WOMEN DESIGNER Unavailable [phone] Arlin Cherry WOMEN DESIGNER Unavailable [phone] Shun Schuster MD Unavailable Portia [email or web address] Jaspal Pettit MD Unavailable Joelle Grande MD, MS Unavailable Danuta Patel MD Unavailable [phone] Encounter Details Date Type Department Care Team (Late st Contact Info) Description 04/07/2020 Procedure [facility], [facility] [place], [place] [address] [facility], Floor [address]1 [place] [address] Social History Tobacco Use Types Packs/Day Years [...] Contact Info) Description 07/02/2024 Procedure Pass [facility] Imaging Department, [facility], [place] [address] [facility], [facility] L1 [place] [address] 07/02/2024 Procedure Pass [facility] Imaging Department, [facility] [place] [address] [facility], [facility] L1 [place] [address] 07/25/2025 1:40 PM EDT Appointment [facility] Imaging Department, [facility] [place] [address] [facility], 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 02/28/2019 12/20/2022 1:[address] CoV-Presumed Comment:12/12: Symptom onset- fatigue, ST, cough, SOB 12/13: positive PCR outside lab (needs to be uploaded to [facility])- Yohana Noble RN 12/12/2021 12/13/2021 01/01/2022 1:[address] Assessment Noted Time PHQ-2 Depression Total Score: 0 11/12/19 1:45 PM EST documented as of this encounter Care Teams Pin Or Clip Fastener Relationship Specialty Start Date End Date Chiara Diggs MD [address] [place] [address] [address] [place] [phone] PCP - General Internal Medicine 07/25/18 Joelle Grande MD, MS [address] [place] [address] JOSÉ MANUEL@[facility] Surgeon Surgical Oncology 08/15/18 Oly Kraus MD, MPH [address] [place] [phone] Lolis@[email or web address] Primary Oncologist Radiation Oncology 08/15/18 Valerie Conti MD [address] [place] [address] Mariusz@[email or web address] Primary Oncologist Medical Oncology 08/15/18 04/11/20 Daryn Donohue MD [address] [place] [address] Referring Physician Urology 08/19/18 Savanna Banegas [address] [place] [address] NESTOR@[facility] Process Machine Operator 08/19/18 Cris Aburto, [facility] [address] [place] [address] [email or web address] Special Diet Cook 12/26/18 Arlin Cherry, [facility] [address] [place] [address] Maykel@[facility] Special Diet Cook Oncology 07/26/19 Shun Schuster MD Rohan@[facility] Primary Oncologist Medical Oncology 04/12/20 06/21/21 Jaspal Ordoñez MD [address] [place] [address] Palliative Care 12/22/20 Joelle Grande MD, MS [address] [place] [address] JOSÉ MANUEL@[facility] Surgical Oncology 03/07/21 Danuta Patel MD [address] [place] [address] Agnes@[facility] Medical Oncology 06/22/21 documented as of this encounter Additional Source Comments The information contained in this document represents components of the legal health record. It is not the complete legal health record.[facility]
--- OUTSIDE RECORDS SUMMARY | 2025-06-29 14:26 | XMS_ITS | Clinical Summary ---
Author Organization [facility] Address [address] [place] [id number] Phone Care Team Providers Care Bookkeeping Clerk Name Role Phone Chiara Diggs MD Primary Care Provider [phone] Joelle Grande MD, MS Unavailable Oly Kraus MD, MPH Unavailable Daryn Donohue MD Unavailable Savanna Banegas Unavailable Cris Aburto FINNISH RUBBER Unavailable + [phone] Arlin Cherry FINNISH RUBBER Unavailable [phone] Jaspal Ordoñez MD Unavailable Joelle Grande MD, MS Unavailable Danuta Patel MD Unavailable [phone] Allergies Active Allergy Reactions Criticality Noted Date Comments Lisinopril Cough 08/09/2018 Simvastatin 08/09/2018 Didn't feel right Medications albuterol 90 mcg/actuation inhaler Inhale 2 puffs into the lungs every 6 (six) hours as needed for wheezing. Active cholecalciferol (VITAMIN D3) 50,000 unit tablet Take by mouth once a week. Active cyclobenzaprine (FLEXERIL) 5 MG tablet Take 5 mg by mouth 3 (three) times a day as needed for muscle spasms. Active zolpidem (AMBIEN) 5 MG tablet Take 5 mg by mouth nightly at bedtime as needed for sleep. Active prochlorperazin e (COMPAZINE) 10 MG tablet Take 1 tablet (10 mg total) by mouth every 6 (six) hours as needed (nausea). 30 tablet 5 1 Active HYDROcodone-brady taminophen (NORCO) 5-325 mg per tablet Take 1 tab q 4-6 hours prn pain, nte 4 tabs/day. PalliativeCa re-partial fill ok 56 tablet 5 Active HYDROcodone-brady taminophen (NORCO) 5-325 mg per tablet Take 1 tab q 4-6 hours prn pain, nte 4 tabs/day. PalliativeCa re-partial fill ok 56 tablet 5 06/23/20 25 Discontinu ed(Reorder ) Active Problems Patient Care Coordination No te Formatting of this note migh t be different from the original. 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 PICC placed 02/07/19. Nutrition consulted and patient started on TPN. Underwent exlap with G-J tube placed on 03/31, subsequently started on TF. Nutrition following. - Nutrition following, appreciate recs. - Cont TF via Jejunostomy tube Non-intractable vomiting with nausea 04/15/2019 Assessment & Plan (04/16/2019 4:55 PM EDT): Prolonged hospital course with ongoing, difficult to control nausea and vomiting. There was initially a concern for infectious process with CT findings of jejunitis, colitis, and intra-abdominal fluid in the setting of fever, s/p a course of broad spectrum ABX 02/05-02/20. Stool cultures were negative for salmonella, shigella, aeromonas, plesiomonas, and cryptosporidium. Patient has undergone multiple gastric emptying studies with mixed results (most recently had an UGI series on 03/24 that demonstrated delayed gastric emptying). Serum amylase and lipase were WNL. GI was consulted, s/p EGD 02/04/19 with grade B esophagitis, as well as acquired and extrinsic stenosis. Colonoscopy on 02/10 unrevealing, repeat colonoscopy on 02/20 i/s/o ongoing BRBPR showed again normal colon but ulcerations and friable tissue in her tej-ileum concern for possible ischemia, biopsy negative for malignancy. CTA 03/03/19 with SMV thrombus and jejunitis of associated vascular territory and fecalized stool burden in small bowel. Patient was treated with anticoagulation. Surgery was consulted, and ultimately underwent an exlap with extensive lysis of adhesions, small bowel resection including resection of prior small bowel anastomosis, resection of ileocolic, retrocolic gastrojejunostomy and insertion of JG tube (03/27). TPN was started perioperatively given inability to tolerate nutrition, transitioned to Tube feeds post operatively, currently tolerating continuous infusion TF (was unable to tolerate bolus TF). Her dysmotility was initially treated with standing reglan, f/b a 5 day course of erythromycin, transitioned back to reglan given concerns for tachyphylaxis with erythromycin, transitioned back to TID reglan with plan for a relatively short course, to follow up with GI to discuss stopping vs rotating back to erythromycin. PPC following closely for help with symptom management. - PPC following, appreciate recs - Cont reglan 10mg TID and zofran 4mg q6h prn - G-tube clamped during day, unclamp if nausea not resolved with antiemetics. Unclamp to gravity overnight. - f/u with GI (Dr. Bhatt) outpatient. Abdominal pain 04/15/2019 Assessment & Plan (04/16/2019 3:28 PM EDT): Acute on chronic intermittently controlled nociceptive somatic and visceral abdominal pain. Initially a concern for infectious process with CT findings of jejunitis and colitis as well as intra-abdominal fluid and fever, treated with Zosyn 02/05-02/14. C. Diff, O&P, and Stool cultures negative. Gastric emptying study 02/05 indeterminate and UGI series 02/06 showed normal gastric emptying. Placed on Vanc/Cefepime/Flagyl 02/17-02/20 due to fever and hypotension but blood cultures were negative. Pt still w/ persistent abdo pain; GI consulted. EGD showed esophagitis, acquired and extrinsic stenosis. [place] (obtained d/t BRBPR) only w/ friable tissue in tej-ileum; biopsy neg for malignancy. CTA 03/03/19 with SMV thrombus and jejunitis of associated vascular territory and fecalized stool burden in small bowel. Patient managed with transition of anticoagulation to fondaparinux. Surg consulted d/t persistent pain; now s/p ex- lap surgery 03/27 with G-J tube placed. Also with gut dysmotility that is likely contributing to discomfort. PPC has been involved during prolonged hospitalization. Current pain control with Fentanyl patch, and prn morphine solution with IV dilaudid as back up. - PPC following, appreciate recs - cont fentanyl patch 50mcg q72h - cont morphine 10-15ml q4h prn - stop IV dilaudid today given patient has not required x 24h and will not be able to receive at rehab Diabetes 04/15/2019 Assessment & Plan (04/15/2019 6:14 PM EDT): Regular insulin SS Wound infection 04/15/2019 Assessment & Plan (04/16/2019 4:56 PM EDT): On 04/05/2019 her incision was noted to have increased erythema and fluctuance, so it was opened at beside and purulent fluid expressed. This wound was packed BID with 1 inch nugauze, and considerably improved during the last days. The expressed fluid was sent to culture and grew E. Coli and E. Faecalis. She was originally on ancef (04/02-04/06) and cipro (04/06-04/07), and then transitioned to IV zosyn (04/07 - 04/10) based on sensitivities and after curbsiding the Infectious Disease Service. - wound checks BID - cont daily packing - surgery following, appreciate recs Lipoma 04/15/2019 Encounter for palliative care 02/04/2019 Assessment & Plan (04/16/2019 3:08 PM EDT): Abdominal pain: Intermittently controlled nociceptive somatic and visceral abdominal pain, currently likely acute on chronic pain r/t ex-lap surgery 03/27, concerned that considering extensive surgery and continued slow gut motility. Fentanyl patch was increased on 04/03. Continuing to provide adequate pain control with PRN opioids through J tube ( Morphine). Patient needing ongoing education about the roll of PRN IV versus PO, as well as opioid medications and s/s of addiction. No signs of opioid toxicity. Patient has not required IV opioids for >24hrs, only utilizing Morphine via J tube. We discussed the use of Morphine via J Tube with the longer lasting effects in treating her pain as opposed to IV Dilaudid which would not provide as sustained pain relief. Because Morphine via J tube is effective in decreasing her pain, will recommend D/C IV Dilaudid with interventions to treat severe pain with Morphine Per J Tube as a 1x order if necessary. Recommendations: - Continue Fentanyl patch 50 mcg / hr TD Q 72 hours - Discontinue Dilaudid 0.5 - 0.8 mg IV Q 6 hours PRN - Continue Morphine liquid 10 - 15 mg per J tube Q 4 hours PRN pain, use as first line - Continue Duloxetine 30mg po daily - Upon discharge please make appointment with [facility] Palliative Care clinic (known to [facility]) for further pain management, please call [phone] or requeste via the [employer] Work queue ([facility] Palliative Care) - [employer] messages can be sent to the Palliative Scheduling Pool - Patient lives far away from [facility], would benefit from making this apt on a day she has other f/u apt Nausea: Currently well-controlled, continue to monitor as patient has had on- going issues with slow gut motility. Patient previously has tried many anti-emetics with unclear efficacy. Unable to use J tube for crushed medications d/t c/f clogging, limiting route of nausea control to PO or TD. Zofran has been effective in controlling nausea. 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 Her outpatient oncology team includes Dr. Sugey MD (oncologist), and Dr. Joelle Grande MD (surgeon). There are currently no plans for systemic therapy. - Will determine need for outpatient follow up Vomiting 02/03/2019 Palliative care encounter 12/31/2018 Assessment & Plan (01/01/2019 12:27 PM EST): #Pain: unknown etiology for her epigastric pain. Her pain is worse post- prandially. CT Scan did not show evidence of post-surgical complications. She is not constipated. UGI series did not show duodenal narrowing and only delayed gastric emptying, which would not explain her pain. She denies GERD and pancreatitis was ruled out at hospital admission. Less likely mesenteric ischemia given her overall improved clinical picture. We d/w Dr. Grande about the possibility of GI consult for EGD. He mentioned b/c of her duodenal patch, she would have to wait 1-2 months to safely have an EGD performed. There are no significant red flags for opioid abuse. The goal will be to treat her pain with PRN short-acting opioids with the hope that her pain resolves soon. We do not recommend treatment with long-acting opioids given that she is currently cancer free after surgery from what we know thus far. Recommendations: - continue Dilaudid 2-4mg po [id number] PRN pain. We continue to encourage her to only take oral Dilaudid and only ask for IV Dilaudid if oral tablets are not relieving severe pain. - continue scheduled Tylenol as a pain adjunct. #Nausea: - better overall and able to eat. - Likely explained by her delayed gastric emptying, which she may have had prior to her surgery from what she describes in her history. Recommendations: - continue Reglan 10mg po tid scheduled - continue Zofran 4mg po tid scheduled #Constipation: - last BM on 12/30/2018. - she does not like Senna - she refused Miralax this AM, but says she will take it going forward. Continue Miralax 17gm po qd. - Ok to continue Colace 100mg #Disposition: - tentative plan for discharge tomorrow is symptomatically ok. - will f/u with [facility] Surgical Oncology. - she does not have to f/u with our outpatient palliative care clinic after discharge if she has resolution of her symptoms. If her symptoms continue or worsen as an outpatient, she can be referred to our clinic after discharge. Dehydration 12/23/2018 Retroperitoneal mass 11/26/2018 Snoring Sciatica Pre-diabetes Overview (11/21/2018): No medication. PONV (postoperative nausea and vomiting) Low back pain Overview (11/21/2018): Lumbar chronic pain L4-5 Insomnia Overview (11/21/2018): Managed with medication. Hypertension Overview (11/21/2018): Well controlled with medication. Assessment & Plan (04/16/2019 4:55 PM EDT): Prior home regimen included home losartan and HCTZ, these have been held during admission. Also on home statin. - restarted home losartan 25mg daily on 04/15 Hyperlipidemia Overview (11/21/2018): On medication. Headache Overview (11/21/2018): On topamax. Gastroesophageal reflux disease Depression Overview (11/21/2018): In past, resolved. Chronic pain Overview (11/21/2018): Low back pain. Takes flexeril and nabumetone PRN Asthma Overview (11/21/2018): Exacerbated by environmental allergens such as cigarette smoke. Takes proair PRN daily. Last steroids ~ 1 year ago. 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 This occurred while she was on lovenox. Thus, Vascular Medicine was consulted and she was switched to fondaparinux. Kristy-operatively, fondaparinux was held and she was maintained on heparin gtt, resumed fondaparinux post-op. 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 02/03/2019 Cancer Staging:Clinical stage from 06/19/2019:Stage IIIB(cT3, cN0, cM0, FNCLCC grade: G2) - Unsigned Pathologic stage from 06/19/2019:Stage IB(ypT4, cN0, cM0, FNCLCC grade: GX) - Unsigned Encounters Date Type Department Care Team Description 06/23/2025 Refill [facility] at [address] [id number] Adrianna Le RN Medication Refill 05/27/2025 Telephone [facility] [address] [place] [phone] Jaspal Ordoñez MD 05/20/2025 Orders Only [facility] [address] [place] [address] Jaspal Ordoñez MD from Last 3 Months Family History Medical History Relation Comments Heart attack Brother Heart attack Father Stroke Maternal Grandfather CABG Mother Heart attack Mother Anesthesia problems Neg Hx Relation Status Comments Brother Father Maternal Grandfather Maternal Grandmother Mother Alive Paternal Grandfather Paternal Grandmother Sister Alive Social History Tobacco Use Types Packs/Day Years [...] PM EST Sexual Orientation Not on file Last Filed Vital Signs Vital Sign Reading Time Taken Comments Blood Pressure 136/77 02/20/2025 11:39 AM EDT Pulse 71 02/20/2025 11:39 AM EDT Temperature 37 C (98.6 F) 03/07/2021 11:13 AM EDT Respiratory Rate 18 03/07/2021 11:1 3 AM EDT Oxygen Saturation 100% 03/07/2021 11: 13 AM EDT Inhaled Oxygen Concentration - - Weight 60.8 kg (134 lb 1.6 oz) 02/20/2025 11:39 AM EDT Height 163.7 cm (5' 4.45 ) 11/17/2019 1 2:13 PM EST copied from previous DFCI encounter visit dated 08/21/19 Body Mass Index 22.7 11/17/2019 12:13 PM EST Plan of Treatment Upcoming Encounters Date Type Department Care Team (Late st Contact Info) Description 07/02/2024 Procedure Pass [facility] Imaging Department, [facility], [place] [address] [place] [address] 07/02/2024 Procedure Pass [facility] Imaging Department, [facility], [place] [address] [place] [address] 07/25/2025 1:40 PM EDT Appointment [facility] Imaging Department, [facility], [place] [address] [place] [address] Danuta Patel MD [address] [place] [id number] [email or web address] 07/29/2025 10:30 AM EDT [facility], [facility] Cancer [address] [place] [address] Danuta Patel MD [address] [place] [phone] [email or web address] Health Maintenance Due Date Last Done Comments Adult Td,Tdap Booster 1950 HEPATITIS C SCREENING 1967 LIPID PANEL 1967 ZOSTER VACCINES (1 of 2) 1968 OSTEOPOROSIS SCREENING INITIAL (ONE-TIME) 2014 DIABETIC EYE EXAM 04/15/2019 URINE MICROALBUMIN/CREATININE RATIO 04/15/2019 HEMOGLOBIN A1C 08/06/2019 02/04/2019, 11/21/2018 DEPRESSION SCREENING 11/12/2020 11/12/2019 RSV VACCINE (1 - 1-dose 75+ series) 2024 COVID-19 VACCINE ( season) 2024 08/14/2022, 09/16/2021, 02/14/2021, Additional history exists INFLUENZA VACCINE (#1) 2025 3, 09/14/2022, 08/11/2021, Additional history exists BLOOD PRESSURE 08/22/2025 02/20/2025 PNEUMOCOCCAL VACCINES (50+ years) Completed 09/14/2022, 01/08/2020 SMOKING STATUS SCREENING (Once After 26 Yrs) Completed 02/20/2025 HEPATITIS A VACCINES Aged Out No long er eligible based on patient's age to complete this topic HIB VACCINES Aged Out No longer eligi ble based on patient's age to complete this topic MENINGOCOCCAL VACCINES (ACWY) Aged Out No longer eligible based on patient's age to complete this topic MENINGOCOCCAL VACCINES (B) Aged Out N o longer eligible based on patient's age to complete this topic Medical Devices Not on file Procedures Procedure Name Priority Date/Time Associated Diagnosis Comments HEMOGLOBIN A1C Routine 02/04/2019 8:07 AM EDT from Last 3 Months or Most Recently Relevant to Health Maintenance Results * Hemoglobin A1c (02/04/2019 8:07 AM EDT) HEMOGLOBIN A1C 5.6 4.2 - 5.8 % [facility] CALC MEAN BLD GLUC 114 mg/dL [facility] Comment: There is no established normal range for the CMBG (Calculated Mean Blood Glucose). A hemoglobin A1c < 7% is the recommended target for most people with diabetes. The CMBG for an A1c of 7% is 154 mg/dL. The diagnostic hemoglobin A1c level for diabetes is greater than or equal to 6.5% which is a CMBG greater than or equal to 140 mg/dL. Blood 02/04/2019 8:07 AM EDT 02/04/2019 8:27 AM EDT us Mackenzie Lamas MD LAB BLOOD ORDERABLES Final Result Performing Organization Address City/State/[facility] Co de Phone Number [facility] [address] [place] [address] from Last 3 Months or Most Recently Relevant to Health Maintenance Insurance MEDICARE PART A & B [facility] MEDICARE PART A & B [facility] MEDICARE PART A & B [employer] [facility] MEDICARE PART A & [place] [address] [address] [address] Internal Gaming [facility] MEDICARE [facility] A & B [employer] [facility] MEDICARE PART A & B [email or web address] [facility] MEDICARE PART A & B [email or web address] [facility] MEDICARE PART A & B [employer] MEDICARE PART A & B [employer] Member Subscriber Plan / Payer (Ef fective 2001-Present) Name:Maru Patel Relation to Subscriber:Self Name:Maru Patel Payer ID:[id number] (NAIC) Group ID:[id number] Type:PPO Address: [facility] [id number] [place] [phone] Advance Directives For more information, please contact: [phone] (9AM - 5PM [facility], Sunday-Sunday) Documents on File Type Date Recorded Patient Pie Filler Expl anation Healthcare Proxy 11/26/2018 * Full Code (Presumed) (Latest Code Status on File) Date Activated Date Inactivated Comments 03/27/2019 8:51 PM 04/17/2019 3:43 PM * Full Code (Presumed) Date Activated Date Inactivated Comments 03/27/2019 10:50 AM 03/27/2019 8:51 PM * Full Code (Confirmed) Date Activated Date Inactivated Comments 02/03/2019 9:30 PM 03/27/2019 10:50 AM Question Answer Comments Code Status Confirmed With: Patient * Full Code (Presumed) Date Activated Date Inactivated Comments 02/03/2019 8:15 PM 02/03/2019 9:30 PM * Full Code (Presumed) Date Activated Date Inactivated Comments 12/23/2018 3:57 PM 01/02/2019 6:51 PM Healthcare Agents on File Name Relationship Healthcare Agent Relationshi p Communication Ron Patel Spouse .Primary Health Care Agent (Proxy form on file) Care Teams Bookkeeping Clerk Relationship Specialty Start Date End Date Chiara Diggs MD [address] [place] [phone] PCP - General Internal Medicine 07/25/18 Joelle Grande MD, MS [address] [place] [phone] [email or web address] Surgical Oncology 08/15/18 Oly Kraus MD, MPH [address] [place] [phone] [email or web address] Primary Oncologist Radiation Oncology 08/15/18 Daryn Donohue MD [address] [place] [phone] Referring Physician Urology 08/19/18 Savanna Banegas [address] [place] [phone] [email or web address] Control System Computer Scientist 08/19/18 Cris Aburto, [address] [address] [email or web address] Hole [email or web address] 12/26/18 Arlin Cherry, [address] [address] [email or web address] Hole Gauger Oncology 07/26/19 Jaspal Ordoñez MD [address] [place] [phone] [email or web address] [email or web address] Care 12/22/20 Joelle Grande MD, MS [address] [place] [phone] [email or web address] Surgical Oncology 03/07/21 Danuta Patel MD [address] [place] [phone] [email or web address] 06/22/21 Additional Source Comments The information contained in this document represents components of the legal health record. It is not the complete legal health record.[facility]
--- OUTSIDE RECORDS SUMMARY | 2025-06-29 14:26 | XMS_ITS | Encounter Summary ---
Author Organization [facility] Address [address] [place] [address] Phone Care Team Providers Care Dock Hand Name Role Phone Chiara Diggs MD Primary Care Provider [phone] Joelle Grande MD, MS Unavailable Oly Kraus MD, MPH Unavailable Daryn Donohue MD Unavailable Savanna Banegas Unavailable Cris Aburto RETURNER Unavailable + [phone] Arlin Cherry RETURNER Unavailable [phone] Jaspal Ordoñez MD Unavailable Joelle Grande MD, MS Unavailable Danuta Patel MD Unavailable [phone] Encounter Details Date Type Department Care Team (Late st Contact Info) Description 01/18/2022 Procedure [facility], [facility] [place], [place] [address] [facility], Floor [address]1 [place] [address] Social History Tobacco Use Types Packs/Day Years [...] Info) Description 07/02/2024 Procedure Pass [facility] Imaging Department, [facility], [place] [address] [facility], Floor [address]1 [place] [address] 07/02/2024 Procedure Pass [facility] Imaging Department, [facility], [place] [address] [facility], Floor [address]1 [place] [address] 07/25/2025 1:40 PM EDT Appointment [facility] Imaging Department, [facility], [place] [address] [facility], [address] [place] [address] Danuta Patel MD [address] [place] [address] Agnes@[facility] 07/29/2025 10:30 AM EDT [facility], [address], 6th [place] [address] Danuta Patel MD [address] [place] [address] Agnes@[facility] documented as of this encounter Visit Diagnoses Not on filedocumented in this encounter Additional Health Concerns 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 02/28/2019 12/20/2022 1:[address] Assessment Noted Time PHQ-2 Depression Total Score: 0 11/12/19 1:45 PM EST documented as of this encounter Care Teams Dock Hand Relationship Specialty Start Date End Date Dontae Chiara Crandall MD [address] [place] [address] Drive [address] [place] [phone] PCP - General Internal Medicine 07/25/18 Joelle Grande MD, MS [address] [place] [address] JOSÉ MANUEL@[facility] Surgeon Surgical Oncology 08/15/18 Oly Kraus MD, MPH [address] [place] [address] Lolis@[facility] Primary Oncologist Radiation Oncology 08/15/18 Daryn Donohue MD [address] [place] [address] Referring Physician Urology 08/19/18 Savanna Banegas [address] [place] [address] NESTOR@[facility] Manager Retail 08/19/18 Cris Aburto, [address] [address] [email or web address] Cryptographic Technician 12/26/18 Arlin Cherry, [facility] [address] [place] [address] Maykel@[facility] Cryptographic Technician Oncology 07/26/19 Jaspal Ordoñez MD [address] [place] [address] [email or web address] Palliative Care 12/22/20 Joelle Grande MD, MS [address] [place] [address] JOSÉ MANUEL@[facility] Surgical Oncology 03/07/21 Danuta Patel MD [address] [place] [address] Agnes@[email or web address] Medical Oncology 06/22/21 documented as of this encounter Additional Source Comments The information contained in this document represents components of the legal health record. It is not the complete legal health record.[facility]
--- OUTSIDE RECORDS SUMMARY | 2025-06-29 14:26 | XMS_ITS | Encounter Summary ---
Author Organization [facility] Address [address] [place] [address] Phone Care Team Providers Care Early Childhood Associate Name Role Phone Chiara Diggs MD Primary Care Provider [phone] Joelle Grande MD, MS Unavailable Oly Kraus MD, MPH Unavailable Daryn Donohue MD Unavailable Savanna Banegas Unavailable Cris Aburto POWER STATION OPERATOR Unavailable + [phone] Arlin Cherry POWER STATION OPERATOR Unavailable [phone] Jaspal Ordoñez MD Unavailable Joelle Grande MD, MS Unavailable Danuta Patel MD Unavailable [phone] Encounter Details Date Type Department Care Team (Late st Contact Info) Description 09/27/2022 Procedure [facility], [facility] [place] [address] [facility], Floor [address]1 [place] [address] Social History Tobacco Use Types Packs/Day Years [...] Contact Info) Description 07/02/2024 Procedure Pass [facility] Imaging Department, [facility], [place] [address] [facility], Floor [address]1 [place] [address] 07/02/2024 Procedure Pass [facility] Imaging Department, [facility], [place] [address] [facility], Floor [address]1 [place] [address] 07/25/2025 1:40 PM EDT Appointment [facility] Imaging Department, [facility], [place] [address] [facility], Floor [address]1 [place] [address] Danuta Patel MD [address] [place] [address] Agnes@[facility] 07/29/2025 10:30 AM EDT [facility], [address], 6th [place] [address] Danuta Patel MD [address] [place] [address] Agnes@[facility] documented as of this encounter Visit Diagnoses Not on filedocumented in this encounter Additional Health Concerns 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 02/28/2019 12/20/2022 1:[address] Assessment Noted Time PHQ-2 Depression Total Score: 0 11/12/19 1:45 PM EST documented as of this encounter Care Teams Early Childhood Associate Relationship Specialty Start Date End Date Dontae Chiara Crandall MD [address] [place] [address] Drive [address] [place] [phone] PCP - General Internal Medicine 07/25/18 Joelle Grande MD, MS [address] [place] [address] JOSÉ MANUEL@[facility] Surgeon Surgical Oncology 08/15/18 Oly Kraus MD, MPH [address] [place] [address] Lolis@[facility] Primary Oncologist Radiation Oncology 08/15/18 Daryn Donohue MD [address] [place] [address] Referring Physician Urology 08/19/18 Savanna Banegas [address] [place] [address] NESTOR@[facility] Casket Upholsterer 08/19/18 Cris Aburto, [address] [address] [email or web address] Solderer Torch 12/26/18 Arlin Cherry, [facility] [address] [place] [address] Maykel@[facility] Solderer Torch Oncology 07/26/19 Jaspal Ordoñez MD [address] [place] [address] [email or web address] Palliative Care 12/22/20 Joelle Grande MD, MS [address] [place] [address] JOSÉ MANUEL@[email or web address] Surgical Oncology 03/07/21 Danuta Patel MD [address] [place] [address] Agnes@[email or web address] Medical Oncology 06/22/21 documented as of this encounter Additional Source Comments The information contained in this document represents components of the legal health record. It is not the complete legal health record.[facility]
--- OUTSIDE RECORDS SUMMARY | 2025-06-29 14:26 | XMS_ITS | Encounter Summary ---
Author Organization [facility] Address [address] [place] [address] Phone Care Team Providers Care Business Operations Manager Name Role Phone Cihara Diggs MD Primary Care Provider Joelle Grande MD, MS Unavailable Oly Kraus MD, MPH Unavailable Daryn Donohue MD Unavailable Savanna Banegas Unavailable Cris Aburto FORENSICS TEAM DIRECTOR Unavailable + [phone] Arlin Cherry FORENSICS TEAM DIRECTOR Unavailable [phone] Jaspal Ordoñez MD Unavailable Joelle Grande MD, MS Unavailable Danuta Patel MD Unavailable [phone] Encounter Details Date Type Department Care Team (Late st Contact Info) Description 04/25/2023 Procedure Pass [facility] [address] [place] [address] Social History Tobacco Use Types Packs/Day Years [...] st Contact Info) Description 07/02/2024 Procedure Pass [facility] Imaging Department, [facility], [place] [address] [facility], Floor [address]1 [place] [address] 07/02/2024 Procedure Pass [facility] Imaging Department, [facility] [place] [address] [facility], Floor [address] [place] [address] 07/25/2025 1:40 PM EDT Appointment [facility] Imaging Department, [facility], [place] [address] [facility], Floor [address] [place] [address] Danuta Patel MD [address] [place] [address] Agnes@[facility] 07/29/2025 10:30 AM EDT [facility], [address], 6th [place] [address] Danuta Patel MD [address] [place] [address] Agnes@[facility] documented as of this encounter Visit Diagnoses Not on filedocumented in this encounter Additional Health Concerns Assessment Noted Time PHQ-2 Depression Total Score: 0 11/12/19 20 1:45 PM EST documented as of this encounter Care Teams Business Operations Manager Relationship Specialty Start Date End Date Chiara Diggs MD [address] [place] [address] [place] [phone] PCP - General Internal Medicine 07/25/18 Joelle Grande MD, MS [address] [place] [address] JOSÉ MANUEL@[facility] Surgeon Surgical Oncology 08/15/18 Oly Kraus MD, MPH [address] [place] [address] Lolis@[facility] Primary Oncologist Radiation Oncology 08/15/18 Daryn Donohue MD [address] [place] [address] Referring Physician Urology 08/19/18 Savanna Banegas [address] [place] [address] NESTOR@[facility] Mobile Mechanic 08/19/18 Cris Aburto, [address] [address] [email or web address] Brim Shaper 12/26/18 Arlin Cherry, [facility] [address] [place] [address] Maykel@[facility] Brim Shaper Oncology 07/26/19 Jaspal Ordoñez MD [address] [place] [address] [email or web address] Palliative Care 12/22/20 Joelle Grande MD, MS [address] [place] [address] JOSÉ MANUEL@[email or web address] Surgical Oncology 03/07/21 Danuta Patel MD [address] [place] [address] Agnes@[email or web address] Medical Oncology 06/22/21 documented as of this encounter Additional Source Comments The information contained in this document represents components of the legal health record. It is not the complete legal health record.[facility]
--- OUTSIDE RECORDS SUMMARY | 2025-06-29 14:26 | XMS_ITS | Encounter Summary ---
Author Organization [facility] Address [address] [place] [address] Phone Care Team Providers Care Credit Risk Manager Name Role Phone Chiara Diggs MD Primary Care Provider [phone] Joelle Grande MD, MS Unavailable Oly Kraus MD, MPH Unavailable Daryn Donohue MD Unavailable [phone] Savanna Banegas Unavailable Cris Aburto XM1 TANK DRIVER Unavailable + [phone] Arlin Cherry XM1 TANK DRIVER Unavailable [phone] Jaspal Ordoñez MD Unavailable Joelle Grande MD, MS Unavailable Danuta Patel MD Unavailable [phone] Encounter Details Date Type Department Care Team (Late st Contact Info) Description 04/25/2023 Procedure Pass [facility] 70 [place] [address] Social History Tobacco Use Types Packs/Day Years [...] st Contact Info) Description 07/02/2024 Procedure Pass [facility] Imaging Department, [facility], [place] [address] [facility], Floor L1 [place] [address] 07/02/2024 Procedure Pass [facility] Imaging Department, [facility], [place] [address] [facility], Floor [address]1 [place] [address] 07/25/2025 1:40 PM EDT Appointment [facility] Imaging Department, [facility], [place] [address] [facility], Floor [address]1 [place] [address] Danuta Patel MD [address] [place] [address] Agnes@[facility] 07/29/2025 10:30 AM EDT [facility], [address], 6th [place] [address] Danuta Patel MD [address] [place] [address] Agnes@[facility] documented as of this encounter Visit Diagnoses Not on filedocumented in this encounter Additional Health Concerns Assessment Noted Time PHQ-2 Depression Total Score: 0 11/12/19 20 1:45 PM EST documented as of this encounter Care Teams Credit Risk Manager Relationship Specialty Start Date End Date Chiara Diggs MD [address] [place] [address] [place] [phone] PCP - General Internal Medicine 07/25/18 Joelle Grande MD, MS [address] [place] [address] JOSÉ MANUEL@[facility] Surgeon Surgical Oncology 08/15/18 Oly Kraus MD, MPH [address] [place] [address] Lolis@[facility] Primary Oncologist Radiation Oncology 08/15/18 Daryn Donohue MD [address] [place] [address] Referring Physician Urology 08/19/18 Savanna Banegas [address] [place] [address] NESTOR@[facility] Facilities Management Executive 08/19/18 Cris Aburto, [address] [address] [email or web address] Fork Assembler 12/26/18 Arlin Cherry, [facility] [address] [place] [address] Maykel@[facility] Fork Assembler Oncology 07/26/19 Jaspal Ordoñez MD [address] [place] [address] [email or web address] Palliative Care 12/22/20 Joelle Grande MD, MS [address] [place] [address] JOSÉ MANUEL@[email or web address] Surgical Oncology 03/07/21 Danuta Patel MD [address] [place] [address] Agnes@[email or web address] Medical Oncology 06/22/21 documented as of this encounter Additional Source Comments The information contained in this document represents components of the legal health record. It is not the complete legal health record.[facility]
--- OUTSIDE RECORDS SUMMARY | 2025-06-29 14:26 | XMS_ITS | Encounter Summary ---
Author Organization [facility] Address [address] [place] [address] Phone Care Team Providers Care Lamp Shades Supervisor Name Role Phone Chiara Diggs MD Primary Care Provider [phone] Joelle Grande MD, MS Unavailable Oly Kraus MD, MPH Unavailable Daryn Donohue MD Unavailable Savanna Banegas Unavailable Cris Aburto STEAMSHIP AGENT Unavailable [phone] Arlin Cherry STEAMSHIP AGENT Unavailable [phone] Shun Schuster MD Unavailable Portia [email or web address] Jaspal Pettit MD Unavailable Joelle Grande MD, MS Unavailable Danuta Patel MD Unavailable [phone] Encounter Details Date Type Department Care Team (Late st Contact Info) Description 08/25/2020 Procedure Pass [facility] 70 [place] [address] Social History Tobacco Use Types Packs/Day Years [...] st Contact Info) Description 07/02/2024 Procedure Pass [facility] Imaging Department, [facility] [address] [facility], Floor L1 [place] [address] 07/02/2024 Procedure Pass [facility] Imaging Department, [facility] [address] [facility], Floor L1 [place] [address] 07/25/2025 1:40 PM EDT Appointment [facility] Imaging Department, [facility] [address] [facility], Floor [address]1 [place] [address] Danuta Patel MD [address] [place] [address] Agnes@[facility] 07/29/2025 10:30 AM EDT [facility], [address], 6th [place] [address] Danuta Patel MD [address] [place] [address] Agnes@[facility] documented as of this encounter Visit Diagnoses [...] documented as of this encounter Care Teams Lamp Shades Supervisor Relationship Specialty Start Date End Date Chiara Diggs MD [address] [place] [address] [place] [phone] PCP - General Internal Medicine 07/25/18 Joelle Grande MD, MS [address] [place] [address] JOSÉ MANUEL@[facility] Surgeon Surgical Oncology 08/15/18 Oly Kraus MD, MPH [address] [place] [address] Lolis@[facility] Primary Oncologist Radiation Oncology 08/15/18 Daryn Donohue MD [address] [place] [address] Referring Physician Urology 08/19/18 Savanna Banegas [address] [place] [address] NESTOR@[facility] Casino Investigator 08/19/18 Cris Aburto, [facility] 450 [place] [address] [email or web address] Oracle Adf Consultant 12/26/18 Arlin Cherry, [facility] 35 [place] [address] Maykel@[facility] Oracle Adf Consultant Oncology 07/26/19 Shun Schuster MD Rohan@[email or web address] Primary Oncologist Medical Oncology 04/12/20 06/21/21 Jaspal Ordoñez MD [address] [place] [address] [email or web address] Palliative Care 12/22/20 Joelle Grande MD, MS [address] [place] [address] JOSÉ MANUEL@[facility] Surgical Oncology 03/07/21 Danuta Patel MD [address] [place] [address] Agnes@[facility] Medical Oncology 06/22/21 documented as of this encounter Additional Source Comments The information contained in this document represents components of the legal health record. It is not the complete legal health record.[facility]
--- OUTSIDE RECORDS SUMMARY | 2025-06-29 14:26 | XMS_ITS | Encounter Summary ---
Author Organization [facility] Address [address] [place] [address] Phone Care Team Providers Care Warehouse Person Name Role Phone Chiara Diggs MD Primary Care Provider [phone] Joelle Grande MD, MS Unavailable Oly Kraus MD, MPH Unavailable Daryn Donohue MD Unavailable [phone] Savanna Banegas Unavailable Cris Aburto POLYMERIZATION HELPER Unavailable [phone] Arlin Cherry POLYMERIZATION HELPER Unavailable [phone] Shun Schuster MD Unavailable Portia [email or web address] Jaspal Pettit MD Unavailable Joelle Grande MD, MS Unavailable Danuta Patel MD Unavailable [phone] Encounter Details Date Type Department Care Team (Late st Contact Info) Description 05/19/2020 [facility] [place] [place] [address] [facility], Floor [address]1 [place] [address] Social History Tobacco Use Types Packs/Day Years [...] Info) Description 07/02/2024 Procedure Pass [facility] Imaging Department, [facility], [place] [address] [facility], Floor [address]1 [place] [address] 07/02/2024 Procedure Pass [facility] Imaging Department, [facility], [place] [address] [facility], Floor [address]1 [place] [address] 07/25/2025 1:40 PM EDT Appointment [facility] Imaging Department, [facility], [place] [address] [facility], Floor [address] [place] [address] Danuta Patel MD [address] [place] [address] Agnes@[facility] 07/29/2025 10:30 AM EDT [facility], [address], 6th [place] [address] Danuta Patel MD [address] [place] [address] Agnes@[facility] documented as of this encounter Visit [...] documented as of this encounter Care Teams Warehouse Person Relationship Specialty Start Date End Date Chiara Diggs MD [address] [place] [address] [place] [phone] PCP - General Internal Medicine 07/25/18 Joelle Grande MD, MS [address] [place] [address] JOSÉ MANUEL@[facility] Surgeon Surgical Oncology 08/15/18 Oly Kraus MD, MPH [address] [place] [address] Lolis@[email or web address] Primary Oncologist Radiation Oncology 08/15/18 Daryn Donohue MD [address] [place] [address] Referring Physician Urology 08/19/18 Savanna Banegas [address] [place] [address] NESTOR@[facility] Furniture Upholsterer Apprentice 08/19/18 Cris Aburto, [address] [address] [email or web address] Marketing Project Manager 12/26/18 Arlin Cherry, [address] [address] Maykel@[facility] Marketing Project Manager Oncology 07/26/19 Shun Schuster MD Rohan@[email or web address] Primary Oncologist Medical Oncology 04/12/20 06/21/21 Jaspal Ordoñez MD [address] [place] [address] [email or web address] Palliative Care 12/22/20 Joelle Garnde MD, MS [address] [place] [address] JOSÉ MANUEL@[email or web address] Surgical Oncology 03/07/21 Danuta Patel MD [address] [place] [address] Agnes@[facility] Medical Oncology 06/22/21 documented as of this encounter Additional Source Comments The information contained in this document represents components of the legal health record. It is not the complete legal health record.[facility]
--- OUTSIDE RECORDS SUMMARY | 2025-06-29 14:26 | XMS_ITS | Encounter Summary ---
Author Organization [facility] Address [address] [place] [address] Phone Care Team Providers Care Process Environmental Technician Name Role Phone Chiara Diggs MD Primary Care Provider [phone] Joelle Grande MD, MS Unavailable Oly Kraus MD, MPH Unavailable Daryn Donohue MD Unavailable [phone] Savanna Banegas Unavailable Cris Aburto HR MANAGER Unavailable [phone] Arlin Cherry HR MANAGER Unavailable [phone] Shun Schuster MD Unavailable Portia [email or web address] Jaspal Pettit MD Unavailable Joelle Grande MD, MS Unavailable Danuta Patel MD Unavailable [phone] Encounter Details Date Type Department Care Team (Late st Contact Info) Description 05/19/2020 [facility] [place] [place] [address] [facility], Floor [address]1 [place] [address] Social History Tobacco Use Types Packs/Day Years [...] Contact Info) Description 07/02/2024 Procedure Pass [facility] Imaging Department, [facility], [place] [address] [facility], Floor [address]1 [place] [address] 07/02/2024 Procedure Pass [facility] Imaging Department, [facility] [place] [address] [facility], Floor [address]1 [place] [address] 07/25/2025 1:40 PM EDT Appointment [facility] Imaging Department, [facility] [place] [address] [facility], Floor [address]1 [place] [address] Danuta Patel MD [address] [place] [address] Agnes@[email or web address] 07/29/2025 10:30 AM EDT [facility], [address], 6th [place] [address] Danuta Patel MD [address] [place] [address] Agnes@[email or web address] documented as of this encounter Visit [...] documented as of this encounter Care Teams Process Environmental Technician Relationship Specialty Start Date End Date Chiara Diggs MD [address] [place] [address] [place] [phone] PCP - General Internal Medicine 07/25/18 Joelle Grande MD, MS [address] [place] [address] JOSÉ MANUEL@[facility] Surgeon Surgical Oncology 08/15/18 Oly Kraus MD, MPH [address] [place] [address] [email or web address] Primary Oncologist Radiation Oncology 08/15/18 Daryn Donohue MD [address] [place] [address] Referring Physician Urology 08/19/18 Savanna Banegas [address] [place] [address] NESTOR@[facility] Manufacturing Area Manager 08/19/18 Cris Aburto, [address] [address] [email or web address] Glueline Worker 12/26/18 Arlin Cherry, [address] [address] Maykel@[email or web address] Glueline Worker Oncology 07/26/19 Shun Schuster MD [email or web address] Primary Oncologist Medical Oncology 04/12/20 06/21/21 Jaspal Ordoñez MD [address] [place] [address] [email or web address] Palliative Care 12/22/20 Joelle Grande MD, MS [address] [place] [address] JOSÉ MANUEL@[facility] Surgical Oncology 03/07/21 Danuta Patel MD [address] [place] [address] [email or web address] Medical Oncology 06/22/21 documented as of this encounter Additional Source Comments The information contained in this document represents components of the legal health record. It is not the complete legal health record.[facility]
--- OUTSIDE RECORDS SUMMARY | 2025-06-29 14:26 | XMS_ITS | Encounter Summary ---
Author Organization [facility] Address [address] [place] [address] Phone Care Team Providers Care Bruise Trimmer Name Role Phone Chiara Diggs MD Primary Care Provider [phone] Joelle Grande MD, MS Unavailable Oly Kraus MD, MPH Unavailable Daryn Donohue MD Unavailable [phone] Savanna Banegas Unavailable Cris Aburto RESPIRATORY PRACTITIONER Unavailable [phone] Arlin Cherry RESPIRATORY PRACTITIONER Unavailable [phone] Shun Schuster MD Unavailable Portia [email or web address] Jaspal Pettit MD Unavailable Joelle Grande MD, MS Unavailable Danuta Patel MD Unavailable [phone] Encounter Details Date Type Department Care Team (Late st Contact Info) Description 12/22/2020 Procedure [facility], [facility] [place], [place] [address] [facility], Floor [address]1 [place] [address] Social History Tobacco Use Types Packs/Day Years [...] st Contact Info) Description 07/02/2024 Procedure Pass [facility] Imaging Department, [facility], [place] [address] [facility], Floor [address]1 [place] [address] 07/02/2024 Procedure Pass [facility] Imaging Department, [facility] [place] [address] [facility], Floor [address] [place] [address] 07/25/2025 1:40 PM EDT Appointment [facility] Imaging Department, [facility] [place] [address] [facility], Floor [address] [place] [address] Danuta Patel MD [address] [place] [address] Agnes@[email or web address] 07/29/2025 10:30 AM EDT [facility], [address], 6th [place] [address] Danuta Patel MD [address] [place] [address] Agnes@[email or web address] documented as of this encounter Visit [...] documented as of this encounter Care Teams Bruise Trimmer Relationship Specialty Start Date End Date Chiara Diggs MD [address] [place] [address] [place] [phone] PCP - General Internal Medicine 07/25/18 Joelle Grande MD, MS [address] [place] [address] JOSÉ MANUEL@[email or web address] Surgeon Surgical Oncology 08/15/18 Oly Kraus MD, MPH [address] [place] [address] Lolis@[email or web address] Primary Oncologist Radiation Oncology 08/15/18 Daryn Donohue MD [address] [place] [address] Referring Physician Urology 08/19/18 Savanna Banegas [address] [place] [address] NESTOR@[email or web address] Retirement Actuary 08/19/18 Cris Aburto, [address] [address] [email or web address] Saturator Operator 12/26/18 Arlin Cherry, [address] [address] Maykel@[facility] Saturator Operator Oncology 07/26/19 Shun Schuster MD Rohan@[email or web address] Primary Oncologist Medical Oncology 04/12/20 06/21/21 Jaspal Ordoñez MD [address] [place] [address] [email or web address] Palliative Care 12/22/20 Joelle Grande MD, MS [address] [place] [address] JOSÉ MANUEL@[email or web address] Surgical Oncology 03/07/21 Danuta Patel MD [address] [place] [address] Agnes@[email or web address] Medical Oncology 06/22/21 documented as of this encounter Additional Source Comments The information contained in this document represents components of the legal health record. It is not the complete legal health record.[facility]
--- OUTSIDE RECORDS SUMMARY | 2025-06-29 14:26 | XMS_ITS | Encounter Summary ---
Author Organization [facility] Address [address] [place] [address] Phone Care Team Providers Care Flat Sorter Processor Name Role Phone Chiara Diggs MD Primary Care Provider Joelle Grande MD, MS Unavailable Oly Kraus MD, MPH Unavailable Daryn Donohue MD Unavailable Savanna Banegas Unavailable Cris Aburto NIGHTMAN Unavailable + [phone] Arlin Cherry NIGHTMAN Unavailable [phone] Jaspal Ordoñez MD Unavailable Joelle Grande MD, MS Unavailable Danuta Patel MD Unavailable [phone] Encounter Details Date Type Department Care Team (Late st Contact Info) Description 01/18/2022 Procedure [facility], [facility] [place], [place] [address] [facility], Floor [address]1 [place] [address] Social History Tobacco Use Types Packs/Day Years [...] Info) Description 07/02/2024 Procedure Pass [facility] Imaging Department, [facility], [place] [address] [facility], Floor [address]1 [place] [address] 07/02/2024 Procedure Pass [facility] Imaging Department, [facility], [place] [address] [facility], Floor [address]1 [place] [address] 07/25/2025 1:40 PM EDT Appointment [facility] Imaging Department, [facility], [place] [address] [facility], [address] [place] [address] Danuta Patel MD [address] [place] [address] Agnes@[facility] 07/29/2025 10:30 AM EDT [facility], [address], 6th [place] [address] Danuta Patel MD [address] [place] [address] Agnes@[facility] documented as of this encounter Visit Diagnoses Not on filedocumented in this encounter Additional Health Concerns 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 02/28/2019 12/20/2022 1:[address] Assessment Noted Time PHQ-2 Depression Total Score: 0 11/12/19 1:45 PM EST documented as of this encounter Care Teams Flat Sorter Processor Relationship Specialty Start Date End Date Dontae Chiara Crandall MD [address] [place] [address] [address] [place] [phone] PCP - General Internal Medicine 07/25/18 Joelle Grande MD, MS [address] [place] [address] JOSÉ MANUEL@[facility] Surgeon Surgical Oncology 08/15/18 Oly Kraus MD, MPH [address] [place] [address] Lolis@[facility] Primary Oncologist Radiation Oncology 08/15/18 Daryn Donohue MD [address] [place] [address] Referring Physician Urology 08/19/18 Savanna Banegas [address] [place] [address] NESTOR@[facility] Seismic Interpreter 08/19/18 Cris Aburto, [address] [address] [email or web address] Reproduction Machine Loader 12/26/18 Arlin Cherry, [facility] [address] [place] [address] Maykel@[facility] Reproduction Machine Loader Oncology 07/26/19 Jaspal Ordoñez MD [address] [place] [address] [email or web address] Palliative Care 12/22/20 Joelle Grande MD, MS [address] [place] [address] JOSÉ MANUEL@[email or web address] Surgical Oncology 03/07/21 Danuta Patel MD [address] [place] [address] [email or web address] Medical Oncology 06/22/21 documented as of this encounter Additional Source Comments The information contained in this document represents components of the legal health record. It is not the complete legal health record.[facility]
--- OUTSIDE RECORDS SUMMARY | 2025-06-29 14:27 | XMS_ITS | Encounter Summary ---
Author Organization [facility] Address [address] [place] [address] Phone Care Team Providers Care Ground Crew Linesman Name Role Phone Chiara Diggs MD Primary Care Provider [phone] Joelle Grande MD, MS Unavailable Oly Kraus MD, MPH Unavailable Valerie Conti MD Unavailable [phone] Daryn Donohue MD Unavailable [phone] Savanna Banegas Unavailable Sindy Isaacs GRAVURE PRESS OPERATOR Unavailable [phone] Cris Aburto GRAVURE PRESS OPERATOR Unavailable [phone] Arlin Cherry GRAVURE PRESS OPERATOR Unavailable [phone] Shun Schuster MD Unavailable Portia [email or web address] Jaspal Pettit MD Unavailable Joelle Grande MD, MS Unavailable Danuta Patel MD Unavailable [phone] Encounter Details Date Type Department Care Team (Late st Contact Info) Description 12/24/2018 Transcribe Orders [facility] Echocardiography [address] [place] [address] Chiara Diggs MD [address] [place] [phone] Social History Tobacco Use Types Packs/Day Years Used Date Smoking Tobacco: Former Cigarettes 0.5 3 0 11/1965 - 11/1968 Smokeless Tobacco: Never Alcohol Use Standard Drinks/Week Comments No 0 (1 standard drink = 0.6 oz pur e alcohol) Comments Unknown Sex and Gender Information Value Date Recorded Sex Assigned at Female 01/04/2022 6:00 PM EST Legal Sex Female 2:07 PM EDT Gender Identity Female 01/04/2022 6:00 PM EST Sexual Orientation Not on file documented as of this encounter Plan of Treatment Upcoming Encounters Date Type Department Care Team (Late st Contact Info) Description 07/02/2024 Procedure Pass [facility], [facility], [place] [address] [facility], Floor [address]1 [place] [address] 07/02/2024 Procedure Pass [facility], [facility] [place] [address] [facility], Floor [address] [place] [address] 07/25/2025 1:40 PM EDT Appointment [facility] Imaging Department, [facility], [place] [address] [facility], Floor [address] [place] [address] Danuta Ptael MD [address] [place] [address] Agnes@[facility] 07/29/2025 10:30 AM EDT [facility], [address], 6th [place] [address] Danuta Patel MD [address] [place] [address] Agnes@[facility] documented as of this encounter Visit [...] 12/12/2021 12/13/2021 01/01/2022 1:[address] documented as of this encounter Care Teams Ground Crew Linesman Relationship Specialty Start Date End Date Dontae, Chiara Crandall MD [address] [place] [address] Drive [address] [place] [phone] PCP - General Internal Medicine 07/25/18 Joelle Grande MD, MS [address] [place] [address] JOSÉ MANUEL@[facility] Surgeon Surgical Oncology 08/15/18 Oly Kraus MD, MPH [address] [place] [address] Lolis@[facility] Primary Oncologist Radiation Oncology 08/15/18 Valerie Conti MD [address] [place] [address] Mariusz@[email or web address] Primary Oncologist Medical Oncology 08/15/18 04/11/20 Daryn Donohue MD [address] [place] [address] Referring Physician Urology 08/19/18 Savanna Banegas [address] [place] [address] NESTOR@[facility] Gas Maker 08/19/18 Sindy Isaacs, [address] [address] Gregorio@[facility] Channel Business Manager Oncology 09/16/18 07/25/19 Cris Aburto, [address] [address] delvin@[facility] Channel Business Manager 12/26/18 Arlin Cherry, [address] [address] Maykel@[facility] Channel Business Manager Oncology 07/26/19 Shun Schuster MD Rohan@[facility] Primary Oncologist Medical Oncology 04/12/20 06/21/21 Jaspal Ordoñez MD [address] [place] [address] [email or web address] Palliative Care 12/22/20 Joelle Grande MD, MS [address] [place] [address] JOSÉ MANUEL@[facility] Surgical Oncology 03/07/21 Danuta Patel MD [address] [place] [address] Agnes@[facility] Medical Oncology 06/22/21 documented as of this encounter Additional Source Comments The information contained in this document represents components of the legal health record. It is not the complete legal health record.[facility]
--- OUTSIDE RECORDS SUMMARY | 2025-06-29 14:27 | XMS_ITS | Encounter Summary ---
Author Organization [facility] Address [address] [place] [address] Phone Care Team Providers Care Medical Office Professional Instructor Name Role Phone Chiara Diggs MD Primary Care Provider [phone] Joelle Grande MD, MS Unavailable Oly Kraus MD, MPH Unavailable Daryn Donohue MD Unavailable Savanna Banegas Unavailable Cris Aburto FLUXER Unavailable + [phone] Arlin Cherry FLUXER Unavailable [phone] Jaspal Ordoñez MD Unavailable Joelle Grnade MD, MS Unavailable Danuta Patel MD Unavailable [phone] Encounter Details Date Type Department Care Team (Late st Contact Info) Description 06/22/2021 Procedure Pass [facility] [address] [place] [address] Social History Tobacco Use Types Packs/Day Years [...] Procedure Pass [facility], [facility] [place] [address] [facility], Floor [address]1 [place] [address] 07/02/2024 Procedure Pass [facility] Imaging Department, [facility] [place] [address] [facility], Floor [address]1 [place] [address] 07/25/2025 1:40 PM EDT Appointment [facility] Imaging Department, [facility], [place] [address] [facility], Floor [address]1 [place] [address] Danuta Patel MD [address] [place] [address] Agnes@[facility] 07/29/2025 10:30 AM EDT [facility], [address], 6th [place] [address] Danuta Patel MD [address] [place] [address] Agnes@[facility] documented as of this encounter Visit Diagnoses Not on filedocumented in this encounter Additional Health Concerns 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 02/28/2019 12/20/2022 1:[address] CoV-Presumed Comment:12/12: Symptom onset- fatigue, ST, cough, SOB 12/13: positive PCR outside lab (needs to be uploaded to [facility])- Yohana Noble RN 12/12/2021 12/13/2021 01/01/2022 1:[address] Assessment Noted Time PHQ-2 Depression Total Score: 0 11/12/19 1:45 PM EST documented as of this encounter Care Teams Medical Office Professional Instructor Relationship Specialty Start Date End Date Chiara Diggs MD [address] [place] [address] [place] [phone] PCP - General Internal Medicine 07/25/18 Joelle Grande MD, MS [address] [place] [address] JOSÉ MANUEL@[facility] Surgeon Surgical Oncology 08/15/18 Oly Kraus MD, MPH [address] [place] [address] Lolis@[email or web address] Primary Oncologist Radiation Oncology 08/15/18 Daryn Donohue MD [address] [place] [address] Referring Physician Urology 08/19/18 Savanna Banegas [address] [place] [address] NESTOR@[facility] Garnetter 08/19/18 Cris Aburto, [facility] [address] [place] [address] [email or web address] Firestopper Installer 12/26/18 Arlin Cherry, [facility] [address] [place] [address] Maykel@[facility] Firestopper Installer Oncology 07/26/19 Jaspal Ordoñez MD [address] [place] [address] Palliative Care 12/22/20 Joelle Grande MD, MS [address] [place] [address] JOSÉ MANUEL@[email or web address] Surgical Oncology 03/07/21 Danuta Patel MD [address] [place] [address] Agnes@[email or web address] Medical Oncology 06/22/21 documented as of this encounter Additional Source Comments The information contained in this document represents components of the legal health record. It is not the complete legal health record.[facility]
--- OUTSIDE RECORDS SUMMARY | 2025-06-29 14:27 | XMS_ITS | Encounter Summary ---
Author Organization [facility] Address [address] [place] [address] Phone Care Team Providers Care Interior Specialist Name Role Phone Chiara Diggs MD Primary Care Provider [phone] Joelle Grande MD, MS Unavailable Oly Kraus MD, MPH Unavailable Valerie Conti MD Unavailable [phone] Daryn Donohue MD Unavailable Savanna Banegas Unavailable Sindy Isaacs REAL TIME OPERATOR Unavailable [phone] Cris Aburto REAL TIME OPERATOR Unavailable [phone] Arlin Cherry REAL TIME OPERATOR Unavailable [phone] Shun Schuster MD Unavailable Portia [email or web address] Jaspal Pettit MD Unavailable Joelle Grande MD, MS Unavailable Danuta Patel MD Unavailable [phone] Encounter Details Date Type Department Care Team (Late st Contact Info) Description 02/20/2019 Procedure Pass [facility] Endoscopy Department [address] [place] [address] Social History Tobacco Use Types Packs/Day Years [...] Upcoming Encounters Date Type Department Care Team ([facility] st Contact Info) Description 07/02/2024 Procedure Pass [facility] Imaging Department, [facility], [place] [address] [facility], [address] [place] [address] 07/02/2024 Procedure Pass [facility] Imaging Department, [facility] [place] [address] [facility], [address] [place] [address] 07/25/2025 1:40 PM EDT Appointment [facility] Imaging Department, [facility] [place] [address] [facility], [address] [place] [address] Danuta Patel MD [address] [place] [address] Agnes@[facility] 07/29/2025 10:30 AM EDT [facility], [address], 6th [place] [address] Danuta Patel MD [address] [place] [address] Agnes@[facility] documented as of this encounter Visit Diagnoses Not on filedocumented in this encounter Additional Health Concerns 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 02/28/2019 12/20/2022 1:[address] CoV-Presumed Comment:12/12: Symptom onset- fatigue, ST, cough, SOB 12/13: positive PCR outside lab (needs to be uploaded to [facility])- Yohana Noble RN 12/12/2021 12/13/2021 01/01/2022 1:[address] documented as of this encounter Care Teams Interior Specialist Relationship Specialty Start Date End Date Dontae, Chiara Crandall MD [address] [place] [address] Drive [address] [place] [phone] PCP - General Internal Medicine 07/25/18 Joelle Grande MD, MS [address] [place] [address] JOSÉ MANUEL@[email or web address] Surgeon Surgical Oncology 08/15/18 Oly Kraus MD, MPH [address] [place] [address] Lolis@[email or web address] Primary Oncologist Radiation Oncology 08/15/18 Valerie Conti MD [address] [place] [address] Mariusz@[facility] Primary Oncologist Medical Oncology 08/15/18 04/11/20 Daryn Donohue MD [address] [place] [address] Referring Physician Urology 08/19/18 Savanna Banegas [address] [place] [address] NESTOR@[facility] Regulatory Compliance Manager 08/19/18 Sindy Isaacs, [address] [address] [email or web address]@[facility] Hammer Heater Oncology 09/16/18 07/25/19 Cris Aburto, [address] [address] pippagracia@[facility] Hammer Heater 12/26/18 Arlin Cherry, [address] [address] Maykel@[facility] Hammer Heater Oncology 07/26/19 Shun Schuster MD Rohan@[facility] Primary Oncologist Medical Oncology 04/12/20 06/21/21 Jaspal Ordoñez MD [address] [place] [address] [email or web address] Palliative Care 12/22/20 Joelle Grande MD, MS [address] [place] [address] JOSÉ MANUEL@[facility] Surgical Oncology 03/07/21 Danuta Patel MD [address] [place] [address] Agnes@[facility] Medical Oncology 06/22/21 documented as of this encounter Additional Source Comments The information contained in this document represents components of the legal health record. It is not the complete legal health record.[facility]
--- OUTSIDE RECORDS SUMMARY | 2025-06-29 14:27 | XMS_ITS | Encounter Summary ---
Author Organization [facility] Address [address] [place] [address] Phone Care Team Providers Care Washhouse Hand Name Role Phone Chiara Diggs MD Primary Care Provider [phone] Joelle Grande MD, MS Unavailable Oly Kraus MD, MPH Unavailable Valerie Conti MD Unavailable [phone] Daryn Donohue MD Unavailable [phone] Savanna Banegas Unavailable Sindy Isaacs BENEFITS TECHNICIAN Unavailable [phone] Cris Aburto BENEFITS TECHNICIAN Unavailable [phone] Arlin Cherry BENEFITS TECHNICIAN Unavailable [phone] Shun Schuster MD Unavailable Portia [email or web address] Jaspal Pettit MD Unavailable Joelle Grande MD, MS Unavailable Danuta Patel MD Unavailable [phone] Encounter Details Date Type Department Care Team (Late st Contact Info) Description 02/04/2019 Procedure Pass [facility] Property Manager Center [address] [place] [address] Social History Tobacco Use Types Packs/Day Years [...] 07/02/2024 Procedure Pass [facility] Imaging Department, [facility] [place] [address] [facility], Floor [address]1 [place] [address] 07/02/2024 Procedure Pass [facility] Imaging Department, [facility] [place] [address] [facility], Floor [address] [place] [address] 07/25/2025 1:40 PM EDT Appointment [facility] Imaging Department, [facility] [place] [address] [facility], Floor [address] [place] [address] Danuta Patel MD [address] [place] [address] Agnes@[facility] 07/29/2025 10:30 AM EDT Telemedicine [facility], [facility] [address], 6th [place] [address] Danuta Patel MD [address] [place] [address] Agnes@[facility] documented as of this encounter [...] documented as of this encounter Care Teams Washhouse Hand Relationship Specialty Start Date End Date Chiara Diggs MD [address] [place] [address] Drive [address] [place] [phone] PCP - General Internal Medicine 07/25/18 Joelle Grande MD, MS [address] [place] [address] JOSÉ MANUEL@[facility] Surgeon Surgical Oncology 08/15/18 Oly Kraus MD, MPH [address] [place] [address] Lolis@[email or web address] Primary Oncologist Radiation Oncology 08/15/18 Valerie Conti MD [address] [place] [address] [email or web address] Primary Oncologist Medical Oncology 08/15/18 04/11/20 Daryn Donohue MD [address] [place] [address] Referring Physician Urology 08/19/18 Savanna Banegas [address] [place] [address] NESTOR@[facility] Laundry Washer 08/19/18 IsaacsAndreay, [address] [address] [email or web address]@[facility] Restaurant Lead Oncology 09/16/18 07/25/19 Cris Aburto, [address] [address] [email or web address]@[facility] Restaurant Lead 12/26/18 Arlin Cherry, [address] [address] Maykel@[facility] Restaurant Lead Oncology 07/26/19 Shun Schuster MD Rohan@[facility] Primary Oncologist Medical Oncology 04/12/20 06/21/21 Jaspal Ordoñez MD [address] [place] [address] [email or web address] Palliative Care 12/22/20 Joelle Grande MD, MS [address] [place] [address] JOSÉ MANUEL@[facility] Surgical Oncology 03/07/21 Danuta Patel MD [address] [place] [address] Agnes@[email or web address] Medical Oncology 06/22/21 documented as of this encounter Additional Source Comments The information contained in this document represents components of the legal health record. It is not the complete legal health record.[facility]
--- OUTSIDE RECORDS SUMMARY | 2025-06-29 14:27 | XMS_ITS | Encounter Summary ---
Author Organization [facility] Address [address] [place] [address] Phone Care Team Providers Care Microbiology Lab Manager Name Role Phone Chiara Diggs MD Primary Care Provider [phone] Joelle Grande MD, MS Unavailable Oly Kraus MD, MPH Unavailable Valerie Conti MD Unavailable [phone] Daryn Donohue MD Unavailable Savanna Banegas Unavailable Sindy Isaacs ADDICTION SOCIAL WORKER Unavailable [phone] Cris Aburto ADDICTION SOCIAL WORKER Unavailable [phone] Arlin Cherry ADDICTION SOCIAL WORKER Unavailable [phone] Shun Schuster MD Unavailable Portia [email or web address] Jaspal Pettit MD Unavailable Joelle Grande MD, MS Unavailable Danuta Patel MD Unavailable [phone] Encounter Details Date Type Department Care Team (Late st Contact Info) Description 02/04/2019 Procedure Pass [facility] Endoscopy Department [address] [place] [address] Social History Tobacco Use Types Packs/Day Years [...] Upcoming Encounters Date Type Department Care Team ([facility] st Contact Info) Description 07/02/2024 Procedure Pass [facility] Imaging Department, [facility], [place] [address] [facility], Floor [address] [place] [address] 07/02/2024 Procedure Pass [facility] Imaging Department, [facility] [place] [address] [facility], Floor [address] [place] [address] 07/25/2025 1:40 PM EDT Appointment [facility] Imaging Department, [facility] [place] [address] [facility], Floor [address] [place] [address] Danuta Patel MD [address] [place] [address] Agnes@[facility] 07/29/2025 10:30 AM EDT Telemedicine [facility], [address], 6th [place] [address] Danuta Patel MD [address] [place] [address] Agnes@[facility] documented as of this encounter Visit Diagnoses Not on filedocumented in this encounter Additional Health Concerns 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 02/28/2019 12/20/2022 1:[address] CoV-Presumed Comment:12/12: Symptom onset- fatigue, ST, cough, SOB 12/13: positive PCR outside lab (needs to be uploaded to [facility])- Yohana Noble RN 12/12/2021 12/13/2021 01/01/2022 1:[address] documented as of this encounter Care Teams Microbiology Lab Manager Relationship Specialty Start Date End Date Dontae, Chiara Crandall MD [address] [place] [address] [address] [place] [phone] PCP - General Internal Medicine 07/25/18 Joelle Grande MD, MS [address] [place] [address] JOSÉ MANUEL@[facility] Surgeon Surgical Oncology 08/15/18 Oly Kraus MD, MPH [address] [place] [address] Lolis@[facility] Primary Oncologist Radiation Oncology 08/15/18 Valerie Conti MD [address] [place] [address] Mariusz@[facility] Primary Oncologist Medical Oncology 08/15/18 04/11/20 Daryn Donohue MD [address] [place] [address] Referring Physician Urology 08/19/18 Savanna Banegas [address] [place] [address] NESTOR@[facility] Pet Stylist 08/19/18 Sindy Isacas, [address] [address] [email or web address]@[facility] Chief Of Staff Doctor Oncology 09/16/18 07/25/19 Cris Aburto, [address] [address] [email or web address] Chief Of Staff Doctor 12/26/18 Arlin Cherry, [address] [address] Maykel@[facility] Chief Of Staff Doctor Oncology 07/26/19 Shun Schuster MD Rohan@[facility] Primary Oncologist Medical Oncology 04/12/20 06/21/21 Jaspal Ordoñez MD [address] [place] [address] [email or web address] Palliative Care 12/22/20 Joelle Grande MD, MS [address] [place] [address] JOSÉ MANUEL@[facility] Surgical Oncology 03/07/21 Danuta Patel MD [address] [place] [address] Agnes@[facility] Medical Oncology 06/22/21 documented as of this encounter Additional Source Comments The information contained in this document represents components of the legal health record. It is not the complete legal health record.[facility]
--- OUTSIDE RECORDS SUMMARY | 2025-06-29 14:27 | XMS_ITS | Encounter Summary ---
Author Organization [facility] Address [address] [place] [address] Phone Care Team Providers Care Pump And Still Operator Name Role Phone Chiara Diggs MD Primary Care Provider [phone] Joelle Grande MD, MS Unavailable Oly Kraus MD, MPH Unavailable Valerie Conti MD Unavailable [phone] Daryn Donohue MD Unavailable Savanna Banegas Unavailable Sindy Isaacs ADVERTISING COORDINATOR Unavailable [phone] Cris Aburto ADVERTISING COORDINATOR Unavailable [phone] Arlin Cherry ADVERTISING COORDINATOR Unavailable [phone] Shun Schuster MD Unavailable Portia [email or web address] Jaspal Pettit MD Unavailable Joelle Grande MD, MS Unavailable Danuta Patel MD Unavailable [phone] Encounter Details Date Type Department Care Team (Late st Contact Info) Description 02/20/2019 Procedure Pass [facility] [address] [place] [address] Social History Tobacco Use Types Packs/Day Years [...] on file documented as of this encounter Last Filed Vital Signs Vital Sign Reading Time Taken Comments Blood Pressure - - Pulse - - Temperature - - Respiratory Rate - - Oxygen Saturation - - Inhaled Oxygen Concentration - - Weight 88.5 kg (195 lb 1.7 oz) 02/20/2019 10:28 PM EDT Height 165.1 cm (5' 5 ) 02/20/2019 10:28 PM EDT Body Mass Index 32.47 02/20/2019 10:28 PM EDT documented in this encounter Plan of Treatment Upcoming Encounters Date Type Department Care Team (Late st Contact Info) Description 07/02/[address] [facility] Imaging Department, [facility], [place] [address] [facility], Floor [address]1 [place] [address] 07/02/[address] [facility] Imaging Department, [facility] [place] [address] [facility], Floor [address] [place] [address] 07/25/2025 1:[address] [facility] Imaging Department, [facility], [place] [address] 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 02/28/2019 12/20/2022 1:[address] CoV-Presumed Comment:12/12: Symptom onset- fatigue, ST, cough, SOB 12/13: positive PCR outside lab (needs to be uploaded to [facility])- Yohana Noble RN 12/12/2021 12/13/2021 01/01/2022 1:[address] documented as of this encounter Care Teams Pump And Still Operator Relationship Specialty Start Date End Date Dontae, Chiara Crandall MD [address] [place] [address] [place] [phone] PCP - General Internal Medicine 07/25/18 Joelle Grande MD, MS [address] [place] [address] JOSÉ MANUEL@[facility] Surgeon Surgical Oncology 08/15/18 Oly Kraus MD, MPH [address] [place] [address] Lolis@[email or web address] Primary Oncologist Radiation Oncology 08/15/18 Valerie Conti MD [address] [place] [address] Mariusz@[facility] Primary Oncologist Medical Oncology 08/15/18 04/11/20 Daryn Donohue MD [address] [place] [address] Referring Physician Urology 08/19/18 Savanna Banegas [address] [place] [address] NESTOR@[facility] Forestry Support Specialist 08/19/18 Sindy Isaacs, [address] [address] Gregorio@[facility] Vacuum Cleaner Repairer Oncology 09/16/18 07/25/19 Crsi Aburto, [address] [address] [email or web address] Vacuum Cleaner Repairer 12/26/18 Arlin Cherry, [address] [address] Maykel@[facility] Vacuum Cleaner Repairer Oncology 07/26/19 Shun Schuster MD Rohan@[facility] Primary Oncologist Medical Oncology 04/12/20 06/21/21 Jaspal Ordoñez MD [address] [place] [address] [email or web address] Palliative Care 12/22/20 Joelle Grande MD, MS [address] [place] [address] JOSÉ MANUEL@[facility] Surgical Oncology 03/07/21 Danuta Patel MD [address] [place] [address] Agnes@[facility] Medical Oncology 06/22/21 documented as of this encounter Additional Source Comments The information contained in this document represents components of the legal health record. It is not the complete legal health record.[facility]
--- OUTSIDE RECORDS SUMMARY | 2025-06-29 14:27 | XMS_ITS | Encounter Summary ---
Author Organization [facility] Address [address] [place] [address] Phone Care Team Providers Care Regulatory Affairs Strategy Specialist Name Role Phone Chiara Diggs MD Primary Care Provider [phone] Joelle Grande MD, MS Unavailable Oly Kraus MD, MPH Unavailable Valerie Conti MD Unavailable [phone] Daryn Donohue MD Unavailable [phone] Savanna Banegas Unavailable Sindy Isaacs INSIDE SALES ASSISTANT Unavailable [phone] Cris Aburto INSIDE SALES ASSISTANT Unavailable [phone] Arlin Cherry INSIDE SALES ASSISTANT Unavailable [phone] Shun Schuster MD Unavailable Portia Baez@[email or web address] Jaspal Pettit MD Unavailable Joelle Grande MD, MS Unavailable Danuta Patel MD Unavailable [phone] Encounter Details Date Type Department Care Team (Late st Contact Info) Description 11/26/2018 Procedure Pass [facility] Periop [address] [place] [address] Social History Tobacco Use Types Packs/Day Years [...] Contact Info) Description 07/02/2024 Procedure Pass [facility] Imaging Department, [facility], [place] [address] [facility], Floor [address]1 [place] [address] 07/02/2024 Procedure Pass [facility] Imaging Department, [facility] [place] [address] [facility], [address] [place] [address] 07/25/2025 1:40 PM EDT Appointment [facility] Imaging Department, [facility], [place] [address] [facility], [address] [place] [address] Danuta Patel MD [address] [place] [address] Agnes@[facility] 07/29/2025 10:30 AM EDT Tele[facility], [address], 6th [place] [address] Danuta Patel MD [address] [place] [address] Agnes@[facility] documented as of this encounter Visit Diagnoses Not on filedocumented in this encounter Additional Health Concerns 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 02/28/2019 12/20/2022 1:[address] CoV-Presumed Comment:12/12: Symptom onset- fatigue, ST, cough, SOB 12/13: positive PCR outside lab (needs to be uploaded to [facility])- Yohana Noble RN 12/12/2021 12/13/2021 01/01/2022 1:[address] documented as of this encounter Care Teams Regulatory Affairs Strategy Specialist Relationship Specialty Start Date End Date Dontae, Chiara Crandall MD [address] [place] [address] [address] [place] [phone] PCP - General Internal Medicine 07/25/18 Joelle Grande MD, MS [address] [place] [address] JOSÉ MANUEL@[facility] Surgeon Surgical Oncology 08/15/18 Oly Kraus MD, MPH [address] [place] [address] Lolis@[facility] Primary Oncologist Radiation Oncology 08/15/18 Valerie Conti MD [address] [place] [address] Mariusz@[facility] Primary Oncologist Medical Oncology 08/15/18 04/11/20 Daryn Donohue MD [address] [place] [address] Referring Physician Urology 08/19/18 Savanna Banegas [address] [place] [address] NESTOR@[facility] Histology Tech 08/19/18 Sindy Isaacs, [address] [address] SindyBettyShital@[facility] Appraiser Irrigation Tax Oncology 09/16/18 07/25/19 Cris Aburto, [address] [address] pippagracia@[facility] Appraiser Irrigation Tax 12/26/18 Arlin Cherry, [address] [address] Maykel@[facility] Appraiser Irrigation Tax Oncology 07/26/19 Shun Schuster MD Rohan@[email or web address] Primary Oncologist Medical Oncology 04/12/20 06/21/21 Jaspal Ordoñez MD [address] [place] [address] [email or web address] Palliative Care 12/22/20 Joelle Grande MD, MS [address] [place] [address] JOSÉ MANUEL@[facility] Surgical Oncology 03/07/21 Danuta Patel MD [address] [place] [address] Agnes@[facility] Medical Oncology 06/22/21 documented as of this encounter Additional Source Comments The information contained in this document represents components of the legal health record. It is not the complete legal health record.[facility]
--- OUTSIDE RECORDS SUMMARY | 2025-06-29 14:27 | XMS_ITS | Encounter Summary ---
Author Organization [facility] Address [address] [place] [address] Phone Care Team Providers Care Bag Checker Name Role Phone Chiara Diggs MD Primary Care Provider [phone] Joelle Grande MD, MS Unavailable Oly Kraus MD, MPH Unavailable Daryn Donohue MD Unavailable Savanna Banegas Unavailable Crsi Aburto ACCOUNT COLLECTOR Unavailable + [phone] Arlin Cherry ACCOUNT COLLECTOR Unavailable [phone] Jaspal Ordoñez MD Unavailable Joelle Grande MD, MS Unavailable Danuta Patel MD Unavailable [phone] Encounter Details Date Type Department Care Team (Late st Contact Info) Description 10/17/2023 Procedure Pass [facility], Ct Scan - [address] [address] Social History Tobacco Use Types Packs/Day Years [...] st Contact Info) Description 07/02/2024 Procedure Pass [facility] Imaging Department, [facility], [address], Floor [address]1 [place] [address] 07/02/2024 Procedure Pass [facility] Imaging Department, [facility], [address], Floor [address] [place] [address] 07/25/2025 1:40 PM EDT Appointment [facility] Imaging Department, [facility], [place] [address] [facility], Floor [address] [place] [address] Danuta Patel MD [address] [place] [address] Agnes@[facility] 07/29/2025 10:30 AM EDT [facility], [address], 6th [place] [address] Danuta Patel MD [address] [place] [address] Agnes@[facility] documented as of this encounter Visit Diagnoses Not on filedocumented in this encounter Additional Health Concerns Assessment Noted Time PHQ-2 Depression Total Score: 0 11/12/19 20 1:45 PM EST documented as of this encounter Care Teams Bag Checker Relationship Specialty Start Date End Date Chiara Diggs MD [address] [place] [address] [place] [phone] PCP - General Internal Medicine 07/25/18 Joelle Grande MD, MS [address] [place] [address] JOSÉ MANUEL@[facility] Surgeon Surgical Oncology 08/15/18 Oly Kraus MD, MPH [address] [place] [address] Lolis@[facility] Primary Oncologist Radiation Oncology 08/15/18 Daryn Donohue MD [address] [place] [address] Referring Physician Urology 08/19/18 Savanna Banegas [address] [place] [address] NESTOR@[facility] E Commerce Merchandising Coordinator 08/19/18 Cris Aburto, [facility] [address] [place] [address] [email or web address] Laborer Concrete Paving 12/26/18 Arlin Cherry, [facility] [address] [place] [address] Maykel@[facility] Laborer Concrete Paving Oncology 07/26/19 Jaspal Ordoñez MD [address] [place] [address] [email or web address] Palliative Care 12/22/20 Joelle Grande MD, MS [address] [place] [address] JOSÉ MANUEL@[email or web address] Surgical Oncology 03/07/21 Danuta Patel MD [address] [place] [address] [email or web address] Medical Oncology 06/22/21 documented as of this encounter Additional Source Comments The information contained in this document represents components of the legal health record. It is not the complete legal health record.[facility]
--- OUTSIDE RECORDS SUMMARY | 2025-06-29 14:27 | XMS_ITS | Encounter Summary ---
Author Organization [facility] Address [address] [place] [address] Phone Care Team Providers Care Engineer Operations And Maintenance Name Role Phone Chiara Diggs MD Primary Care Provider [phone] Joelle Grande MD, MS Unavailable Oly Kraus MD, MPH Unavailable Daryn Donohue MD Unavailable [phone] Savanna Banegas Unavailable Cris Aburto TOOL PLANNER Unavailable + [phone] Arlin Cherry TOOL PLANNER Unavailable [phone] Jaspal Ordoñez MD Unavailable Joelle Grande MD, MS Unavailable Danuta Patel MD Unavailable [phone] Encounter Details Date Type Department Care Team (Late st Contact Info) Description 06/22/2021 Procedure Pass [facility] [address] [place] [address] Social History Tobacco Use Types Packs/Day Years [...] Contact Info) Description 07/02/2024 Procedure Pass [facility] Imaging [facility], [facility], [place] [address] [facility], Floor [address]1 [place] [address] 07/02/2024 Procedure Pass [facility] Imaging Department, [facility], [place] [address] [facility], Floor [address]1 [place] [address] 07/25/2025 1:40 PM EDT Appointment [facility] Imaging Department, [facility], [place] [address] [facility], [address]1 [place] [address] Danuta Patel MD [address] [place] [address] Agnes@[facility] 07/29/2025 10:30 AM EDT [facility], [address], 6th [place] [address] Danuta Patel MD [address] [place] [address] Agnes@[facility] documented as of this encounter Visit Diagnoses Not on filedocumented in this encounter Additional Health Concerns 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 02/28/2019 12/20/2022 1:[address] CoV-Presumed Comment:12/12: Symptom onset- fatigue, ST, cough, SOB 12/13: positive PCR outside lab (needs to be uploaded to [facility])- Yohana Noble RN 12/12/2021 12/13/2021 01/01/2022 1:[address] Assessment Noted Time PHQ-2 Depression Total Score: 0 11/12/19 1:45 PM EST documented as of this encounter Care Teams Engineer Operations And Maintenance Relationship Specialty Start Date End Date Chiara Diggs MD [address] [place] [address] [place] [phone] PCP - General Internal Medicine 07/25/18 Joelle Grande MD, MS [address] [place] [address] JOSÉ MANUEL@[facility] Surgeon Surgical Oncology 08/15/18 Oly Kraus MD, MPH [address] [place] [address] Lolis@[email or web address] Primary Oncologist Radiation Oncology 08/15/18 Daryn Donohue MD [address] [place] [address] Referring Physician Urology 08/19/18 Savanna Banegas [address] [place] [address] NESTOR@[facility] Dragline Engineer 08/19/18 Cris Aburto, [facility] [address] [place] [address] [email or web address] Electronic Gluing Machine Operator 12/26/18 Arlin Cherry, [facility] [address] [place] [address] Maykel@[facility] Electronic Gluing Machine Operator Oncology 07/26/19 Jaspal Ordoñez MD [address] [place] [address] Palliative Care 12/22/20 Joelle Grande MD, MS [address] [place] [address] JOSÉ MANUEL@[email or web address] Surgical Oncology 03/07/21 Danuta Patel MD [address] [place] [address] Agnes@[email or web address] Medical Oncology 06/22/21 documented as of this encounter Additional Source Comments The information contained in this document represents components of the legal health record. It is not the complete legal health record.[facility]
--- OUTSIDE RECORDS SUMMARY | 2025-06-29 14:27 | XMS_ITS | Encounter Summary ---
Author Organization [facility] Address [address] [place] [address] Phone Care Team Providers Care Neurosurgery Physician Name Role Phone Chiara Diggs MD Primary Care Provider [phone] Joelle Grande MD, MS Unavailable Oly Kraus MD, MPH Unavailable Valerie Conti MD Unavailable [phone] Daryn Donohue MD Unavailable Savanna Banegas Unavailable Sindy Isaacs ATMOSPHERIC CHEMIST Unavailable [phone] Cris Aburto ATMOSPHERIC CHEMIST Unavailable [phone] Arlin Cherry ATMOSPHERIC CHEMIST Unavailable [phone] Shun Schuster MD Unavailable Portia [email or web address] Jaspal Pettit MD Unavailable Joelle Grande MD, MS Unavailable Danuta Patel MD Unavailable [phone] Encounter Details Date Type Department Care Team (Late st Contact Info) Description 02/21/2019 Procedure Pass [facility] [address] [place] [address] Social History Tobacco Use Types Packs/Day Years [...] Info) Description 07/02/2024 Procedure Pass [facility] Imaging Department, [facility], [place] [address] [facility], Floor [address]1 [place] [address] 07/02/2024 Procedure Pass [facility] Imaging Department, [facility], [place] [address] [facility], Floor [address]1 [place] [address] 07/25/2025 1:40 PM EDT Appointment [facility] Imaging Department, [facility], [place] [address] [facility], Floor [address]1 [place] [address] Danuta Patel MD [address] [place] [address] Agnes@[email or web address] 07/29/2025 10:30 AM EDT Tele[facility], [facility] [address], 6th [place] [address] Danuta Patel MD [address] [place] [address] Agnes@[email or web address] documented as of this encounter Visit [...] documented as of this encounter Care Teams Neurosurgery Physician Relationship Specialty Start Date End Date Chiara Diggs MD [address] [place] [address] [address] [place] [phone] PCP - General Internal Medicine 07/25/18 Joelle Grande MD, MS [address] [place] [address] JOSÉ MANUEL@[facility] Surgeon Surgical Oncology 08/15/18 Oly Kraus MD, MPH [address] [place] [address] Lolis@[email or web address] Primary Oncologist Radiation Oncology 08/15/18 Valerie Conti MD [address] [place] [address] [email or web address] Primary Oncologist Medical Oncology 08/15/18 04/11/20 Daryn Donohue MD [address] [place] [address] Referring Physician Urology 08/19/18 Savanna Banegas [address] [place] [address] NESTOR@[facility] Jig And Fixture Builder 08/19/18 Sindy Isaacs, [address] [address] [email or web address]@[email or web address] Forming Fixer Oncology 09/16/18 07/25/19 Cris Aburto, [address] [address] [email or web address] Forming Fixer 12/26/18 Arlin Cherry, [address] [address] Maykel@[facility] Forming Fixer Oncology 07/26/19 Shun Schuster MD Rohan@[email or web address] Primary Oncologist Medical Oncology 04/12/20 06/21/21 Jaspal Ordoñez MD [address] [place] [address] [email or web address] Palliative Care 12/22/20 Joelle Grande MD, MS [address] [place] [address] JOSÉ MANUEL@[facility] Surgical Oncology 03/07/21 Danuta Patel MD [address] [place] [address] Agnes@[email or web address] Medical Oncology 06/22/21 documented as of this encounter Additional Source Comments The information contained in this document represents components of the legal health record. It is not the complete legal health record.[facility]
--- OUTSIDE RECORDS SUMMARY | 2025-06-29 14:28 | XMS_ITS | Encounter Summary ---
Author Organization [facility] Address [address] [place] [address] Phone Care Team Providers Care Car Racer Name Role Phone Chiara Diggs MD Primary Care Provider [phone] Joelle Grande MD, MS Unavailable Oly Kraus MD, MPH Unavailable Valerie Conti MD Unavailable [phone] Daryn Donohue MD Unavailable [phone] Savanna Banegas Unavailable Sindy Isaacs MEDICINE AND HEALTH SERVICE MANAGER Unavailable [phone] Cris Aburto MEDICINE AND HEALTH SERVICE MANAGER Unavailable [phone] Arlin Cherry MEDICINE AND HEALTH SERVICE MANAGER Unavailable [phone] Shun Schuster MD Unavailable Portia [email or web address] Jasapl Pettit MD Unavailable Joelle Grande MD, MS Unavailable Danuta Patel MD Unavailable [phone] Encounter Details Date Type Department Care Team (Late st Contact Info) Description 03/27/2019 Procedure Pass [facility] Periop [address] [place] [address] Social History Tobacco Use Types Packs/Day Years [...] Info) Description 07/02/2024 Procedure Pass [facility] Imaging Department, [facility], [place] [address] [facility], Floor [address]1 [place] [address] 07/02/2024 Procedure Pass [facility] Imaging Department, [facility], [place] [address] [facility], Floor [address]1 [place] [address] 07/25/2025 1:40 PM EDT Appointment [facility] Imaging Department, [facility], [place] [address] [facility], [address]1 [place] [address] Danuta Patel MD [address] [place] [address] Agnes@[facility] 07/29/2025 10:30 AM EDT [facility], [address], 6th [place] [address] Danuta Patel MD [address] [place] [address] Agnes@[facility] documented as of this encounter Visit Diagnoses Not on filedocumented in this encounter Additional Health Concerns 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 02/28/2019 12/20/2022 1:[address] CoV-Presumed Comment:12/12: Symptom onset- fatigue, ST, cough, SOB 12/13: positive PCR outside lab (needs to be uploaded to [facility])- Yohana Noble RN 12/12/2021 12/13/2021 01/01/2022 1:[address] documented as of this encounter Care Teams Car Racer Relationship Specialty Start Date End Date Dontae, Chiara Crandall MD [address] [place] [address] [address] [place] [phone] PCP - General Internal Medicine 07/25/18 Joelle Grande MD, MS [address] [place] [address] JOSÉ MANUEL@[facility] Surgeon Surgical Oncology 08/15/18 Oly Kraus MD, MPH [address] [place] [address] Lolis@[facility] Primary Oncologist Radiation Oncology 08/15/18 Valerie Conti MD [address] [place] [address] Mariusz@[email or web address] Primary Oncologist Medical Oncology 08/15/18 04/11/20 Daryn Donohue MD [address] [place] [address] Referring Physician Urology 08/19/18 Savanna Banegas [address] [place] [address] NESTOR@[facility] Finish Grinder 08/19/18 Sindy Isaacs, [address] [address] [email or web address]@[facility] Group Director Experience Oncology 09/16/18 07/25/19 Cris Aburto, [address] [address] [email or web address] Group Director Experience 12/26/18 Arlin Cherry, [address] [address] Maykel@[facility] Group Director Experience Oncology 07/26/19 Shun Schuster MD Rohan@[facility] Primary Oncologist Medical Oncology 04/12/20 06/21/21 Jaspal Ordoñez MD [address] [place] [address] [email or web address] Palliative Care 12/22/20 Joelle Grande MD, MS [address] [place] [address] JOSÉ MANUEL@[facility] Surgical Oncology 03/07/21 Danuta Patel MD [address] [place] [address] Agnes@[facility] Medical Oncology 06/22/21 documented as of this encounter Additional Source Comments The information contained in this document represents components of the legal health record. It is not the complete legal health record.[facility]
--- OUTSIDE RECORDS SUMMARY | 2025-06-29 14:28 | XMS_ITS | Encounter Summary ---
Author Organization [facility] Address [address] [place] [address] Phone Care Team Providers Care Health And Safety Consultant Name Role Phone Chiara Diggs MD Primary Care Provider [phone] Joelle Grande MD, MS Unavailable Oly Kraus MD, MPH Unavailable Valerie Conti MD Unavailable [phone] Daryn Donohue MD Unavailable [phone] Savanna Banegas Unavailable Sindy Isaacs OFFICE 365 CONSULTANT Unavailable [phone] Cris Aburto OFFICE 365 CONSULTANT Unavailable [phone] Arlin Cehrry OFFICE 365 CONSULTANT Unavailable [phone] Shun Schuster MD Unavailable Portia [email or web address] Jaspal Pettit MD Unavailable Joelle Grande MD, MS Unavailable Danuta Patel MD Unavailable [phone] Encounter Details Date Type Department Care Team (Late st Contact Info) Description 03/05/2019 Transcribe Orders [facility] Echocardiography [address] [place] [address] Chiara Diggs MD [address] [address] [place] [phone] Social History Tobacco Use Types Packs/Day [...] Info) Description 07/02/2024 Procedure Pass [facility] Imaging Department, [facility], [place] [address] [facility], Floor [address]1 [place] [address] 07/02/2024 Procedure Pass [facility] Imaging Department, [facility], [place] [address] [facility], Floor [address] [place] [address] 07/25/2025 1:40 PM EDT Appointment [facility] Imaging Department, [facility], [place] [address] [facility], [address] [place] [address] Danuta Patel MD [address] [place] [address] Agnes@[facility] 07/29/2025 10:30 AM EDT [facility], [address], 6th [place] [address] Danuta Patel MD [address] [place] [address] Agnes@[facility] documented as of this encounter [...] documented as of this encounter Care Teams Health And Safety Consultant Relationship Specialty Start Date End Date Dontae, Chiara Crandall MD [address] [place] [address] Drive [address] [place] [phone] PCP - General Internal Medicine 07/25/18 Joelle Grande MD, MS [address] [place] [address] JOSÉ MANUEL@[facility] Surgeon Surgical Oncology 08/15/18 Oly Kraus MD, MPH [address] [place] [address] Lolis@[facility] Primary Oncologist Radiation Oncology 08/15/18 Valerie Conti MD [address] [place] [address] Mariusz@[email or web address] Primary Oncologist Medical Oncology 08/15/18 04/11/20 Daryn Donohue MD [address] [place] [address] Referring Physician Urology 08/19/18 Savanna Banegas [address] [place] [address] NESTOR@[facility] Tie Loader 08/19/18 Sindy Isaacs, [address] [address] Gregorio@[facility] Tip Cementer Oncology 09/16/18 07/25/19 Cris Aburto, [address] [address] [email or web address] Tip Cementer 12/26/18 Arlin Cherry, [address] [address] Maykel@[facility] Tip Cementer Oncology 07/26/19 Shun Schuster MD Rohan@[email or web address] Primary Oncologist Medical Oncology 04/12/20 06/21/21 Jaspal Ordoñez MD [address] [place] [address] [email or web address] Palliative Care 12/22/20 Joelle Grande MD, MS [address] [place] [address] JOSÉ MANUEL@[facility] Surgical Oncology 03/07/21 Danuta Patel MD [address] [place] [address] Agnes@[facility] Medical Oncology 06/22/21 documented as of this encounter Additional Source Comments The information contained in this document represents components of the legal health record. It is not the complete legal health record.[facility]
--- OUTSIDE RECORDS SUMMARY | 2025-06-29 14:28 | XMS_ITS | Encounter Summary ---
Author Organization [facility] Address [address] [place] [address] Phone Care Team Providers Care Kraft Digester Operator Name Role Phone Chiara Diggs MD Primary Care Provider [phone] Joelle Grande MD, MS Unavailable Oly Kraus MD, MPH Unavailable Valerie Conti MD Unavailable [phone] Daryn Donohue MD Unavailable Savanna Banegas Unavailable Sindy Isaacs LANDSCAPE MANAGER Unavailable [phone] Cris Aburto LANDSCAPE MANAGER Unavailable [phone] Arlin Cherry LANDSCAPE MANAGER Unavailable [phone] Shun Schuster MD Unavailable Portia [email or web address] Jaspal Pettit MD Unavailable Joelle Grande MD, MS Unavailable Danuta Patel MD Unavailable [phone] Encounter Details Date Type Department Care Team (Late st Contact Info) Description 08/15/2018 Procedure Pass [facility] [address] [place] [address] Social History Tobacco Use Types Packs/Day Years Used Date Smoking Tobacco: Former Cigarettes 0.3 2 1 962 - 1923 Smokeless Tobacco: Never Alcohol Use Standard Drinks/Week [...] Info) Description 07/02/2024 Procedure Pass [facility] Imaging [facility], [facility], [place] [address] [facility], [address] [place] [address] 07/02/2024 Procedure Pass [facility], [facility] [place] [address] [facility], [place] [address] [place] [address] 07/25/2025 1:40 PM EDT Appointment [facility], [facility] [place] [address] [facility], [address] [place] [address] Danuta Patel MD [address] [place] [address] Agnes@[facility] 07/29/2025 10:30 AM EDT [facility], [address], 6th [place] [address] Danuta Patel MD [address] [place] [address] Agnes@[facility] documented as of this encounter Visit Diagnoses Not on filedocumented in this encounter Additional Health Concerns 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 02/28/2019 12/20/2022 1:[address] CoV-Presumed Comment:12/12: Symptom onset- fatigue, ST, cough, SOB 12/13: positive PCR outside lab (needs to be uploaded to [facility])- Yohana Noble RN 12/12/2021 12/13/2021 01/01/2022 1:[address] documented as of this encounter Care Teams Kraft Digester Operator Relationship Specialty Start Date End Date Po, Chiara Crandall MD [address] [place] [address] [address] [place] [phone] PCP - General Internal Medicine 07/25/18 Joelle Grande MD, MS [address] [place] [address] JOSÉ MANUEL@[facility] Surgeon Surgical Oncology 08/15/18 Oly Kraus MD, MPH [address] [place] [address] Lolis@[facility] Primary Oncologist Radiation Oncology 08/15/18 Valerie Conti MD [address] [place] [address] Mariusz@[facility] Primary Oncologist Medical Oncology 08/15/18 04/11/20 Daryn Donohue MD [address] [place] [address] Referring Physician Urology 08/19/18 Savanna Banegas [address] [place] [address] NESTOR@[facility] Car Ferry Captain 08/19/18 Sindy Isaacs, [address] [address] [email or web address]@[facility] Embedded Systems Engineer Oncology 09/16/18 07/25/19 Cris Aburto, [address] [address] pippagracia@[facility] Embedded Systems Engineer 12/26/18 Arlin Cherry, [address] [address] ArlinBettyJo Ann@[facility] Embedded Systems Engineer Oncology 07/26/19 Shun Schuster MD Rohan@[email or web address] Primary Oncologist Medical Oncology 04/12/20 06/21/21 Jaspal Ordoñez MD [address] [place] [address] [email or web address] Palliative Care 12/22/20 Joelle Grande MD, MS [address] [place] [address] JOSÉ MANUEL@[facility] Surgical Oncology 03/07/21 Danuta Patel MD [address] [place] [address] Agnes@[facility] Medical Oncology 06/22/21 documented as of this encounter Additional Source Comments The information contained in this document represents components of the legal health record. It is not the complete legal health record.[facility]
--- OUTSIDE RECORDS SUMMARY | 2025-06-29 14:28 | XMS_ITS | Encounter Summary ---
Author Organization [facility] Address [address] [place] [address] Phone Care Team Providers Care Call Center Consultant Name Role Phone Chiara Diggs MD Primary Care Provider [phone] Joelle Grande MD, MS Unavailable Oly Kraus MD, MPH Unavailable Valerie Conti MD Unavailable [phone] Daryn Donohue MD Unavailable Savanna Banegas Unavailable Sindy Isaacs STEAM CONDITIONING OPERATOR Unavailable [phone] Cris Aburto STEAM CONDITIONING OPERATOR Unavailable [phone] Arlin Cherry STEAM CONDITIONING OPERATOR Unavailable [phone] Shun Schuster MD Unavailable Portia [email or web address] Jaspal Pettit MD Unavailable Joelle Grande MD, MS Unavailable Danuta Patel MD Unavailable [phone] Encounter Details Date Type Department Care Team (Late st Contact Info) Description 08/15/2018 Procedure Pass [facility] [address] [place] [address] Social History Tobacco Use Types Packs/Day Years Used Date Smoking Tobacco: Former Cigarettes 0.3 2 1 962 - 2915 Smokeless Tobacco: Never Alcohol Use Standard Drinks/Week [...] Contact Info) Description 07/02/2024 Procedure Pass [facility], [facility] [address] [facility], [address] [place] [address] 07/02/2024 Procedure Pass [facility], [facility] [place] [address] [facility], [address] [place] [address] 07/25/2025 1:40 PM EDT Appointment [facility], [facility] [place] [address] [facility], [address] [place] [address] Danuta Patel MD [address] [place] [address] Agnes@[facility] 07/29/2025 10:30 AM EDT Tele[facility], [address], 6th [place] [address] Danuta Patel MD [address] [place] [address] Agnes@[facility] documented as of this encounter Visit Diagnoses Not on filedocumented in this encounter Additional Health Concerns 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 02/28/2019 12/20/2022 1:[address] CoV-Presumed Comment:12/12: Symptom onset- fatigue, ST, cough, SOB 12/13: positive PCR outside lab (needs to be uploaded to [facility])- Yohana Noble RN 12/12/2021 12/13/2021 01/01/2022 1:[address] documented as of this encounter Care Teams Call Center Consultant Relationship Specialty Start Date End Date Po, Chiara Crandall MD [address] [place] [address] [address] [place] [phone] PCP - General Internal Medicine 07/25/18 Joelle Grnade MD, MS [address] [place] [address] JOSÉ MANUEL@[facility] Surgeon Surgical Oncology 08/15/18 Oly Kraus MD, MPH [address] [place] [address] Lolis@[facility] Primary Oncologist Radiation Oncology 08/15/18 Valerie Conti MD [address] [place] [address] Mariusz@[facility] Primary Oncologist Medical Oncology 08/15/18 04/11/20 Darny Donohue MD [address] [place] [address] Referring Physician Urology 08/19/18 Savanna Banegas [address] [place] [address] NESTOR@[facility] Electronic Warfare Technician 08/19/18 Sindy Isaacs, [address] [address] SindyBettyShital@[facility] Still Runner Oncology 09/16/18 07/25/19 Cris Aburto, [address] [address] [email or web address] Still Runner 12/26/18 Arlin Cherry, [address] [address] ArlinBettyJo [email or web address]@[facility] Still Runner Oncology 07/26/19 Shun Schuster MD Rohan@[email or web address] Primary Oncologist Medical Oncology 04/12/20 06/21/21 Jaspal Ordoñez MD [address] [place] [address] [email or web address] Palliative Care 12/22/20 Joelle Grande MD, MS [address] [place] [address] JOSÉ MANUEL@[facility] Surgical Oncology 03/07/21 Danuta Patel MD [address] [place] [address] Agnes@[facility] Medical Oncology 06/22/21 documented as of this encounter Additional Source Comments The information contained in this document represents components of the legal health record. It is not the complete legal health record.[facility]
--- OUTSIDE RECORDS SUMMARY | 2025-06-29 14:28 | XMS_ITS | Encounter Summary ---
Author Organization [facility] Address [address] [place] [address] Phone Care Team Providers Care Accounting Supervisor Name Role Phone Chiara Diggs MD Primary Care Provider [phone] Joelle Grande MD, MS Unavailable Oly Kraus MD, MPH Unavailable Valerie Conti MD Unavailable [phone] Daryn Donohue MD Unavailable [phone] Savanna Banegas Unavailable Sindy Isaacs BURN TABLE OPERATOR Unavailable [phone] Cris Aburto BURN TABLE OPERATOR Unavailable [phone] Arlin Cherry BURN TABLE OPERATOR Unavailable [phone] Shun Schuster MD Unavailable Portia [email or web address] Jaspal Pettit MD Unavailable Joelle Grande MD, MS Unavailable Danuta Patel MD Unavailable [phone] Reason for Referral * MRI/CAT Scan - Closed Specialty Diagnoses / Procedures Referred By Contac t Referred To Contact Procedures MRI Abdomen Outside (No Interpretation) Donnie Moore MD Phone: tel: fax: mailto:[email or web address] Referral ID Status Reason Start Date Expiration Date Visits Re quested Visits Authorized [id number] Closed 08/15/2018 08/15/2019 1 1 * MRI/CAT Scan - Closed Specialty Diagnoses / Procedures Referred By Contac t Referred To Contact Procedures MRI Spine (Neuro) Outside (No Interpretation) Donnie Moore MD Phone: tel: fax: mailto:[email or web address] Referral ID Status Reason Start Date Expiration Date Visits Re quested Visits Authorized [id number] Closed 08/15/2018 08/15/2019 1 1 * MRI/CAT Scan - Closed Specialty Diagnoses / Procedures Referred By Contac t Referred To Contact Procedures MRI Abdomen Outside (No Interpretation) Donnie Moore MD Phone: tel: fax: mailto:[email or web address] Referral ID Status Reason Start Date Expiration Date Visits Re quested Visits Authorized [id number] Closed 08/15/2018 08/15/2019 1 1 * MRI/CAT Scan - Closed Specialty Diagnoses / Procedures Referred By Contac t Referred To Contact Procedures CT Abdomen/Pelvis Outside (No Interpretation) Donnie Moore MD Phone: tel: fax: mailto:[email or web address] Referral ID Status Reason Start Date Expiration Date Visits Re quested Visits Authorized [id number] Closed 08/15/2018 08/15/2019 1 1 Encounter Details Date Type Department Care Team (Late st Contact Info) Description 08/15/2018 Transcribe Orders [facility] [address] [place] [address] Samina Zaragozan [address] [place] [address] ROSE@[email or web address] Social History Tobacco Use Types Packs/Day Years Used Date Smoking Tobacco: Former Cigarettes 0.3 2 1 962 - 1964 Smokeless Tobacco: Never Alcohol Use Standard Drinks/Week [...] Info) Description 07/02/2024 Procedure Pass [facility] Imaging Department, [facility], [place] [address] [facility], [place] [address] [place] [address] 07/02/2024 Procedure Pass [facility], [facility] [place] [address] [facility], [place] [address] [place] [address] 07/25/2025 1:40 PM EDT Appointment [facility] Imaging Department, [facility] [place] [address] [facility], [address] [place] [address] Danuta Patel MD [address] [place] [address] Agnes@[facility] 07/29/2025 10:30 AM EDT Telemedicine [facility], [facility] Cancer [address], 6th [place] [address] Danuta Patel MD [address] [place] [address] [email or web address] documented as of this encounter Results * MRI Abdomen Outside (No Interpretation) (08/15/2018 1:15 AM EDT) Narrative PERCIPIO_BW - 08/15/2018 11:02 AM EDT This study is for PACS storage only and not for interpretation. us Donnie Moore MD IMG OUTSIDE IMAGING W/OUT INT ERPRETATION Final Result Performing Organization Address [facility] de Phone Number PERCIPIO_BWH * XR SPINE OUTSIDE(NO INTERPRETATION) (08/15/2018 1:00 AM EDT) Narrative PERCIPIO_BWH - 08/15/2018 11:02 AM EDT This study is for PACS storage only and not for interpretation. us Donnie Moore MD IMG OUTSIDE IMAGING W/OUT INT ERPRETATION Final Result Performing Organization Address [facility] de Phone Number PERCIPIO_BWH * MRI Spine (Neuro) Outside (No Interpretation) (08/15/2018 12:45 AM EDT) Narrative PERCIPIO_BW - 08/15/2018 11:02 AM EDT This study is for PACS storage only and not for interpretation. us Donnie Moore MD IMG OUTSIDE IMAGING W/OUT INT ERPRETATION Final Result Performing Organization Address [facility] de Phone Number PERCIPIO_BWH * US Abdomen Outside (No Interpretation) (08/15/2018 12:30 AM EDT) Narrative PERCIPIO_BWH - 08/15/2018 11:02 AM EDT This study is for PACS storage only and not for interpretation. us Donnie Moore MD IMG OUTSIDE IMAGING W/OUT INT ERPRETATION Final Result Performing Organization Address [facility] de Phone Number PERCIPIO_BWH * MRI Abdomen Outside (No Interpretation) (08/15/2018 12:15 AM EDT) Narrative JOSE ELIAS - 08/15/2018 10:40 AM EDT This study is for PACS storage only and not for interpretation. us Donnie Moore MD IMG OUTSIDE IMAGING W/OUT INT ERPRETATION Final Result [facility] * CT Abdomen/Pelvis Outside (No Interpretation) (08/15/2018 12:00 AM EDT) Narrative SYSTEMGENERATED, DOCUMENTATION - 08/15/2018 10:40 AM EDT This study is for PACS storage only and not for interpretation. 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 02/28/2019 12/20/2022 1:[address] CoV-Presumed Comment:12/12: Symptom onset- fatigue, ST, cough, SOB 12/13: positive PCR outside lab (needs to be uploaded to [employer])- Yohana Noble RN 12/12/2021 12/13/2021 01/01/2022 1:[address] documented as of this encounter Care Teams Accounting Supervisor Relationship Specialty Start Date End Date Chiara Diggs MD [address] [place] [address] [address] [place] [phone] PCP - General Internal Medicine 07/25/18 Joelle Grande MD, MS [address] [place] [address] JOSÉ MANUEL@[email or web address] Surgeon Surgical Oncology 08/15/18 Oly Kraus MD, MPH [address] [place] [address] Lolis@[facility] Primary Oncologist Radiation Oncology 08/15/18 Valerie Conti MD [address] [place] [address] Mariusz@[facility] Primary Oncologist Medical Oncology 08/15/18 04/11/20 Daryn Donohue MD [address] [place] [address] Referring Physician Urology 08/19/18 Savanna Banegas [address] [place] [address] NESTOR@[facility] Typists Supervisor 08/19/18 Sindy Isaacs, [address] [address] Gregorio@[facility] Gum Scoring Machine Operator Oncology 09/16/18 07/25/19 Cris Aburto, [address] [address] [email or web address] Gum Scoring Machine Operator 12/26/18 Arlin Cherry, [address] [address] Maykel@[facility] Gum Scoring Machine Operator Oncology 07/26/19 Shun Schuster MD Rohan@[facility] Primary Oncologist Medical Oncology 04/12/20 06/21/21 Jaspal Ordoñez MD [address] [place] [address] Palliative Care 12/22/20 Joelle Grande MD, MS [address] [place] [address] JOSÉ MANUEL@[facility] Surgical Oncology 03/07/21 Danuta Patel MD [address] [place] [address] [email or web address] Medical Oncology 06/22/21 documented as of this encounter Additional Source Comments The information contained in this document represents components of the legal health record. It is not the complete legal health record.[facility]
--- OUTSIDE RECORDS SUMMARY | 2025-06-29 14:28 | XMS_ITS | Encounter Summary ---
Author Organization [facility] Address [address] [place] [address] Phone Care Team Providers Care Bending Machine Operator Name Role Phone Chiara Diggs MD Primary Care Provider [phone] Joelle Grande MD, MS Unavailable Oly Kraus MD, MPH Unavailable Valerie Conti MD Unavailable [phone] Daryn Donohue MD Unavailable Savanna Banegas Unavailable Sindy Isaacs SENIOR ORACLE DEVELOPER Unavailable [phone] Cris Aburto SENIOR ORACLE DEVELOPER Unavailable [phone] Arlin Cherry SENIOR ORACLE DEVELOPER Unavailable [phone] Shun Schuster MD Unavailable Portia [email or web address] Jaspal Pettit MD Unavailable Joelle Grande MD, MS Unavailable Danuta Patel MD Unavailable [phone] Encounter Details Date Type Department Care Team (Late st Contact Info) Description 02/19/2019 Procedure Pass [facility] Endoscopy Department [address] [place] [address] Social History Tobacco Use Types Packs/Day Years [...] Upcoming Encounters Date Type Department Care Team ([facility] st Contact Info) Description 07/02/2024 Procedure Pass [facility] Imaging Department, [facility] [place] [address] [facility], Floor [address]1 [place] [address] 07/02/2024 Procedure Pass [facility] Imaging Department, [facility] [place] [address] [facility], Floor [address] [place] [address] 07/25/2025 1:40 PM EDT Appointment [facility] Imaging Department, [facility] [place] [address] [facility], [address] [place] [address] Danuta Patel MD [address] [place] [address] Agnes@[facility] 07/29/2025 10:30 AM EDT [facility], [address], [address]th [place] [address] Danuta Patel MD [address] [place] [address] Agnes@[facility] documented as of this encounter [...] documented as of this encounter Care Teams Bending Machine Operator Relationship Specialty Start Date End Date Dontae, Chiara Crandall MD [address] [place] [address] [address] [place] [phone] PCP - General Internal Medicine 07/25/18 Joelle Grande MD, MS [address] [place] [address] JOSÉ MANUEL@[facility] Surgeon Surgical Oncology 08/15/18 Oly Kraus MD, MPH [address] [place] [address] Lolis@[facility] Primary Oncologist Radiation Oncology 08/15/18 Valerie Conti MD [address] [place] [address] Mariusz@[facility] Primary Oncologist Medical Oncology 08/15/18 04/11/20 Daryn Donohue MD [address] [place] [address] Referring Physician Urology 08/19/18 Savanna Banegas [address] [place] [address] NESTOR@[facility] Community Associate 08/19/18 Sindy Isaacs, [address] [address] SindyBettyShital@[facility] Electrostatic Powder Coating Technician Oncology 09/16/18 07/25/19 Cris Aburto, [address] [address] [email or web address] Electrostatic Powder Coating Technician 12/26/18 Arlin Cherry, [address] [address] Maykel@[facility] Electrostatic Powder Coating Technician Oncology 07/26/19 Shun Schuster MD Rohan@[facility] Primary Oncologist Medical Oncology 04/12/20 06/21/21 Jaspal Ordoñez MD [address] [place] [address] [email or web address] Palliative Care 12/22/20 Joelle Grande MD, MS [address] [place] [address] JOSÉ MANUEL@[facility] Surgical Oncology 03/07/21 Danuta Patel MD [address] [place] [address] Agnes@[facility] Medical Oncology 06/22/21 documented as of this encounter Additional Source Comments The information contained in this document represents components of the legal health record. It is not the complete legal health record.[facility]
--- OUTSIDE RECORDS SUMMARY | 2025-06-29 14:28 | XMS_ITS | Encounter Summary ---
Author Organization [facility] Address [address] [place] [address] Phone Care Team Providers Care Clay Machine Operator Name Role Phone Chiara Diggs MD Primary Care Provider [phone] Joelle Grande MD, MS Unavailable Oly Kraus MD, MPH Unavailable Valerie Conti MD Unavailable [phone] Daryn Donohue MD Unavailable Savanna Banegas Unavailable Sindy Isaacs MOTOR VEHICLES INSPECTOR Unavailable [phone] Cris Aburto MOTOR VEHICLES INSPECTOR Unavailable [phone] Arlin Cherry MOTOR VEHICLES INSPECTOR Unavailable [phone] Shun Schuster MD Unavailable Portia [email or web address] Jaspal Pettit MD Unavailable Joelle Grande MD, MS Unavailable Danuta Patel MD Unavailable [phone] Encounter Details Date Type Department Care Team (Late st Contact Info) Description 08/15/2018 Procedure Pass [facility] [address] [place] [address] Social History Tobacco Use Types Packs/Day Years Used Date Smoking Tobacco: Former Cigarettes 0.3 2 1 962 - 5971 Smokeless Tobacco: Never Alcohol Use Standard Drinks/Week [...] Info) Description 07/02/2024 Procedure Pass [facility], [facility], [place] [address] [facility], Floor [address]1 [place] [address] 07/02/2024 Procedure Pass [facility] [place] [address] [facility], Floor [address] [place] [address] 07/25/2025 1:40 PM EDT Appointment [facility] [place] [address] [facility], Floor [address]1 [place] [address] Danuta Patel MD [address] [place] [address] Agnes@[facility] 07/29/2025 10:30 AM EDT [facility], [address], 6th [place] [address] Danuta Patel MD [address] [place] [address] Agnes@[facility] documented as of this encounter Visit Diagnoses Not on filedocumented in this encounter Additional Health Concerns 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 02/28/2019 12/20/2022 1:[address] CoV-Presumed Comment:12/12: Symptom onset- fatigue, ST, cough, SOB 12/13: positive PCR outside lab (needs to be uploaded to [facility])- Yohana Noble RN 12/12/2021 12/13/2021 01/01/2022 1:[address] documented as of this encounter Care Teams Clay Machine Operator Relationship Specialty Start Date End Date Po, Chiara Crandall MD [address] [place] [address] [address] [place] [phone] PCP - General Internal Medicine 07/25/18 Joelle Grande MD, MS [address] [place] [address] JOSÉ MANUEL@[facility] Surgeon Surgical Oncology 08/15/18 Oly Kraus MD, MPH [address] [place] [phone] Lolis@[facility] Primary Oncologist Radiation Oncology 08/15/18 Valerie Conti MD [address] [place] [address] Mariusz@[email or web address] Primary Oncologist Medical Oncology 08/15/18 04/11/20 Daryn Donohue MD [address] [place] [address] Referring Physician Urology 08/19/18 Savanna Banegas [address] [place] [address] NESTOR@[facility] Rebar Worker 08/19/18 Sindy Isaacs, [address] [address] [email or web address]@[facility] Bell Captain Oncology 09/16/18 07/25/19 Cris Aburto, [address] [address] [email or web address] Bell Captain 12/26/18 Arlin Cherry, [address] [address] ArlinBettyJo Ann@[facility] Bell Captain Oncology 07/26/19 Shun Schuster MD Rohan@[facility] Primary Oncologist Medical Oncology 04/12/20 06/21/21 Jaspal Ordoñez MD [address] [place] [address] [email or web address] Palliative Care 12/22/20 Joelle Grande MD, MS [address] [place] [address] JOSÉ MANUEL@[facility] Surgical Oncology 03/07/21 Danuta Patel MD [address] [place] [address] Agnes@[facility] Medical Oncology 06/22/21 documented as of this encounter Additional Source Comments The information contained in this document represents components of the legal health record. It is not the complete legal health record.[facility]
--- OUTSIDE RECORDS SUMMARY | 2025-06-29 14:28 | XMS_ITS | Encounter Summary ---
Author Organization [facility] Address [address] [place] [address] Phone Care Team Providers Care Glove Pairer Name Role Phone Chiara Diggs MD Primary Care Provider [phone] Joelle Grande MD, MS Unavailable Oly Kraus MD, MPH Unavailable Valerie Conti MD Unavailable [phone] Daryn Donohue MD Unavailable Savanna Banegas Unavailable Sindy Isaacs STATION CASHIER Unavailable [phone] Cris Aburto STATION CASHIER Unavailable [phone] Arlin Cherry STATION CASHIER Unavailable [phone] Shun Schuster MD Unavailable Portia [email or web address] Jaspal Pettit MD Unavailable Joelle Grande MD, MS Unavailable Danuta Patel MD Unavailable [phone] Encounter Details Date Type Department Care Team (Late st Contact Info) Description 08/19/2018 Procedure Pass [facility] [address] [place] [address] Social History Tobacco Use Types Packs/Day Years Used Date Smoking Tobacco: Former Cigarettes 0.3 2 1 962 - 5289 Smokeless Tobacco: Never Alcohol Use Standard Drinks/Week [...] st Contact Info) Description 07/02/2024 Procedure Pass [facility] [place] [address] [facility], Floor [address]1 [place] [address] 07/02/2024 Procedure Pass [facility] [place] [address] [facility], Floor [address] [place] [address] 07/25/2025 1:40 PM EDT Appointment [facility] [place] [address] [facility], [address] [place] [address] Danuta Patel MD [address] [place] [phone] Agnes@[facility] 07/29/2025 10:30 AM EDT [facility], [address], 6th [place] [address] Danuta Patel MD [address] [place] [address] Agnes@[email or web address] documented as of this encounter Visit [...] Noble RN 12/12/2021 12/13/2021 01/01/2022 1:21 AM EST documented as of this encounter Care Teams Glove Pairer Relationship Specialty Start Date End Date Dontae, Chiara Crandall MD [address] [place] [address] Drive [address] [place] [phone] PCP - General Internal Medicine 07/25/18 Joelle Grande MD, MS [address] [place] [address] JOSÉ MANUEL@[facility] Surgeon Surgical Oncology 08/15/18 Oly Kraus MD, MPH [address] [place] [phone] Lolis@[facility] Primary Oncologist Radiation Oncology 08/15/18 Valerie Conti MD [address] [place] [address] [email or web address] Primary Oncologist Medical Oncology 08/15/18 04/11/20 Daryn Donohue MD [address] [place] [address] Referring Physician Urology 08/19/18 Savanna Banegas [address] [place] [address] NESTOR@[email or web address] Instrumentation Controls Engineer 08/19/18 Isaacs, Sindy, [address] [address] [email or web address]@[email or web address] Supervisor Gelatin Plant Oncology 09/16/18 07/25/19 Cris Aburto, [address] [address] [email or web address] Supervisor Gelatin Plant 12/26/18 Arlin Cherry, [address] [address] Maykel@[facility] Supervisor Gelatin Plant Oncology 07/26/19 Shun Schuster MD Rohan@[facility] Primary Oncologist Medical Oncology 04/12/20 06/21/21 Jaspal Ordoñez MD [address] [place] [address] [email or web address] Palliative Care 12/22/20 Joelle Grande MD, MS [address] [place] [address] JOSÉ MANUEL@[facility] Surgical Oncology 03/07/21 Danuta Patel MD [address] [place] [address] Agnes@[facility] Medical Oncology 06/22/21 documented as of this encounter Additional Source Comments The information contained in this document represents components of the legal health record. It is not the complete legal health record.[facility]
--- OUTSIDE RECORDS SUMMARY | 2025-06-29 14:28 | XMS_ITS | Encounter Summary ---
Author Organization [facility] Address [address] [place] [address] Phone Care Team Providers Care Property Disposal Manager Name Role Phone Chiara Diggs MD Primary Care Provider [phone] Joelle Grande MD, MS Unavailable Oly Kraus MD, MPH Unavailable Valerie Conti MD Unavailable [phone] Daryn Donohue MD Unavailable Savanna Banegas Unavailable Sindy Isaacs SPOT WASHER Unavailable [phone] Cris Aburto SPOT WASHER Unavailable [phone] Arlin Cherry SPOT WASHER Unavailable [phone] Shun Schuster MD Unavailable Portia [email or web address] Jaspal Pettit MD Unavailable Joelle Grande MD, MS Unavailable Danuta Patel MD Unavailable [phone] Encounter Details Date Type Department Care Team (Late st Contact Info) Description 08/15/2018 Procedure Pass [facility] [address] [place] [address] Social History Tobacco Use Types Packs/Day Years Used Date Smoking Tobacco: Former Cigarettes 0.3 2 1 962 - 3217 Smokeless Tobacco: Never Alcohol Use Standard Drinks/Week [...] [facility], [facility], [place] [address] [facility], Floor [address]1 [place] [address] 07/02/2024 Procedure Pass [facility], [facility] [place] [address] [facility], Floor [address] [place] [address] 07/25/2025 1:40 PM EDT Appointment [facility], [facility] [place] [address] [facility], [address] [place] [address] Danuta Patel MD [address] [place] [address] Agnes@[facility] 07/29/2025 10:30 AM EDT [facility], [address], 6th [place] [address] Danuta Patel MD [address] [place] [address] Agnes@[facility] documented as of this encounter Visit Diagnoses Not on filedocumented in this encounter Additional Health Concerns 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 02/28/2019 12/20/2022 1:[address] CoV-Presumed Comment:12/12: Symptom onset- fatigue, ST, cough, SOB 12/13: positive PCR outside lab (needs to be uploaded to [facility])- Yohana Noble RN 12/12/2021 12/13/2021 01/01/2022 1:[address] documented as of this encounter Care Teams Property Disposal Manager Relationship Specialty Start Date End Date Po, Chiara Crandall MD [address] [place] [address] Drive [address] [place] [phone] PCP - General Internal Medicine 07/25/18 Joelle Grande MD, MS [address] [place] [address] JOSÉ MANUEL@[facility] Surgeon Surgical Oncology 08/15/18 Oly Kraus MD, MPH [address] [place] [phone] Lolis@[facility] Primary Oncologist Radiation Oncology 08/15/18 Valerie Conti MD [address] [place] [address] Mariusz@[email or web address] Primary Oncologist Medical Oncology 08/15/18 04/11/20 Daryn Donohue MD [address] [place] [address] Referring Physician Urology 08/19/18 Savanna Banegas [address] [place] [address] NESTOR@[facility] Transportation Maintenance Supervisor 08/19/18 Sindy Isaacs, [address] [address] [email or web address]@[facility] Tire Center Manager Oncology 09/16/18 07/25/19 Cris Aburto, [address] [address] [email or web address]@[email or web address] Tire Center Manager 12/26/18 Arlin Cherry, [address] [address] ArlinBettyJo Ann@[email or web address] Tire Center Manager Oncology 07/26/19 Shun Schuster MD Rohan@[facility] Primary Oncologist Medical Oncology 04/12/20 06/21/21 Jaspal Ordoñez MD [address] [place] [address] [email or web address] Palliative Care 12/22/20 Joelle Grande MD, MS [address] [place] [address] JOSÉ MANUEL@[facility] Surgical Oncology 03/07/21 Danuta Patel MD [address] [place] [phone] Agnes@[facility] Medical Oncology 06/22/21 documented as of this encounter Additional Source Comments The information contained in this document represents components of the legal health record. It is not the complete legal health record.[facility]
--- OUTSIDE RECORDS SUMMARY | 2025-06-29 14:28 | XMS_ITS | Encounter Summary ---
Author Organization [facility] Address [address] [place] [address] Phone Care Team Providers Care Power Electronics Engineer Name Role Phone Chiara Diggs MD Primary Care Provider [phone] Joelle Grande MD, MS Unavailable Oly Kraus MD, MPH Unavailable Valerie Conti MD Unavailable [phone] Daryn Donohue MD Unavailable Savanna Banegas Unavailable Sindy Isaacs RELAY MECHANIC Unavailable [phone] Cris Aburto RELAY MECHANIC Unavailable [phone] Arlin Cherry RELAY MECHANIC Unavailable [phone] Shun Schuster MD Unavailable Portia [email or web address] Jaspal Pettit MD Unavailable Joelle Grande MD, MS Unavailable Danuta Patel MD Unavailable [phone] Encounter Details Date Type Department Care Team (Late st Contact Info) Description 02/10/2019 Procedure Pass [facility] Endoscopy Department [address] [place] [address] Social History Tobacco Use Types Packs/Day Years [...] Upcoming Encounters Date Type Department Care Team ([facility] st Contact Info) Description 07/02/2024 Procedure Pass [facility], [facility] [place] [address] [facility], Floor [address] [place] [address] 07/02/2024 Procedure Pass [facility], [facility] [place] [address] [facility], [address] [place] [address] 07/25/2025 1:40 PM EDT Appointment [facility], [facility] [place] [address] [facility], [address] [place] [address] Danuta Patel MD [address] [place] [address] Agnes@[facility] 07/29/2025 10:30 AM EDT [facility], [address], 6th [place] [address] Danuta Patel MD [address] [place] [phone] Agnes@[facility] documented as of this encounter Visit Diagnoses Not on filedocumented in this encounter Additional Health Concerns 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 02/28/2019 12/20/2022 1:[address] CoV-Presumed Comment:12/12: Symptom onset- fatigue, ST, cough, SOB 12/13: positive PCR outside lab (needs to be uploaded to [facility])- Yohana Noble RN 12/12/2021 12/13/2021 01/01/2022 1:[address] documented as of this encounter Care Teams Power Electronics Engineer Relationship Specialty Start Date End Date Dontae, Chiara Crandall MD [address] [place] [address] Drive [address] [place] [phone] PCP - General Internal Medicine 07/25/18 Joelle Grande MD, MS [address] [place] [address] JOSÉ MANUEL@[facility] Surgeon Surgical Oncology 08/15/18 Oly Kraus MD, MPH [address] [place] [address] Lolis@[facility] Primary Oncologist Radiation Oncology 08/15/18 Valerie Conti MD [address] [place] [address] Mariusz@[facility] Primary Oncologist Medical Oncology 08/15/18 04/11/20 Daryn Donohue MD [address] [place] [address] Referring Physician Urology 08/19/18 Savanna Banegas [address] [place] [address] NESTOR@[facility] Group Care Worker 08/19/18 Sindy Isaacs, [address] [address] [email or web address]@[email or web address] International Manager Oncology 09/16/18 07/25/19 Cris Aburto, [address] [address] [email or web address] International Manager 12/26/18 Arlin Cherry, [address] [address] Maykel@[facility] International Manager Oncology 07/26/19 Shun Schuster MD Rohan@[email or web address] Primary Oncologist Medical Oncology 04/12/20 06/21/21 Jaspal Ordoñez MD [address] [place] [address] [email or web address] Palliative Care 12/22/20 Joelle Grande MD, MS [address] [place] [address] JOSÉ MANUEL@[facility] Surgical Oncology 03/07/21 Danuta Patel MD [address] [place] [address] Agnes@[facility] Medical Oncology 06/22/21 documented as of this encounter Additional Source Comments The information contained in this document represents components of the legal health record. It is not the complete legal health record.[facility]
== END 2025-06-29 14:45 | disposition home or self-care (01) ==
LOC: HO.HGI 13:08
PROVIDERS: PCP Internal Medicine; Visit Provider Internal Medicine Gastroenterology
DX: R63.4 Abnormal weight loss (principal)
CPT/HCPCS: 99213

== ENCOUNTER 2025-07-09 14:43 | Outpatient (AMB) | payer BC, MEDICARE, SELFPAY ==
[2025-07-09 14:48] VITALS: BP 120/60; PULSE 76; TEMP 36.3; O2SAT 97; BMI 20.8
--- NOTE | 2025-07-09 14:48 | A.OFFPC_ITS ---
Vital Signs 07/09/25 14:48 Height 5 ft 4 in Weight 121 lb 4 oz BMI 20.8 BP 120/60 Blood Pressure Location Lt brachial Position Sitting Pulse 76 Pulse Source Pulse Oximeter Temp 97.3 F Temp Source Temporal Artery Scan Pulse Oximetry (%) 97 Oxygen Delivery Method Room Air Intake Visit Reasons: 3 months Arts Administrator Required: No Mid Level Project Manager: Present Accompanied by: Spouse Allergies lisinopril (LISINOPRIL) Allergy (Intermediate, Verified 07/09/25 14:49) COUGH, constant cough simvastatin (SIMVASTATIN) Allergy (Mild, Verified 07/09/25 14:49) Confusion Tobacco use date assessed: 06/08/25 Fall risk assessment: 1 Fall in past year Last assessed Fall Risk: 07/09/25 Dental Screening Dental Screen Date: 06/08/25 HPI 3 months HPI Details MRI 08/02/2025 cataract surgery done Right and planned this month. blood work pending. creaon not taken due to insurance coverage. 6 months of occipital LAU , did have a fall recently. [facility] Medical History (Updated 07/09/25 @ 15:54 by Chiara Diggs MD) Headache Atrial fibrillation Cataracts, both eyes PAF (paroxysmal atrial fibrillation) Dysphagia Diarrhea Atrial fibrillation with rapid ventricular response Acute respiratory failure Respiratory arrest Asthma exacerbation Radicular low back pain Polyarthralgia Scalp mass Colon cancer screening Breast cancer screening by mammogram RUQ pain Epigastric abdominal pain Chronic gastritis Chronic low back pain Tubular adenoma of colon Hypercholesterolemia Hypertension Vitamin D deficiency Asthma GERD (gastroesophageal reflux disease) Vitamin B12 deficiency Secondary malignant neoplasm of retroperitoneum and peritoneum History of DVT (deep vein thrombosis) Insomnia Surgical History (Updated 07/09/25 @ 15:43 by Chiara Diggs MD) History of cataract surgery History of excision of mass (~01/11/22) Hx of endoscopy History of colonoscopy Retroperitoneal liposarcoma History of nephroureterectomy History of back surgery History of section History of tubal ligation History of tonsillectomy Family History Father Myocardial infarction CVD (cardiovascular disease) Mother CVD (cardiovascular disease) Stroke Brother Myocardial infarction CVD (cardiovascular disease) Social History Household Members: Spouse and Family Housing: House Are you a primary adult daycare coordinator to a significant other at home: No Do you presently have visiting nurse or other home services: No Alcohol intake: never Patient Tobacco Use Status: Never used Tobacco Tobacco use type: Cigarette e-Cigarette/Vaping Use: Never Used Second Hand Smoke Exposure: No Substance Use Type: Marijuana and Other service: No Current occupational status: retired Cognitive needs: No Hearing needs: No Vision needs: Yes Questionnaire PHQ-9 Over the last 2 weeks, how often have you been bothered by any of the following problems? 1. Little interest or pleasure in doing things: more than half the days 2. Feeling down, depressed, or hopeless: more than half the days 3. Trouble falling or staying asleep, or sleeping too much: several days 4. Feeling tired or having little energy: several days 5. Poor appetite or overeating: nearly every day 6. Feeling bad about yourself - or that you are a failure or have let yourself or your family down: several days 7. Trouble concentrating on things, such as reading the newspaper or watching television: not at all 8. Moving or speaking so slowly that other people could have noticed. Or the opposite - being so fidgety or restless that you have been moving around a lot more than usual: not at all 9. Thoughts that you would be better off or of hurting yourself in some way: not at all Total score: 10 Depression Screening Interpretation: Positive Depression Screening Done: Yes Source: Developed by Drs. Juventino Harper, Kaelyn Bruno, Ajay Briggs and colleagues, with an educational lake from [employer]. Thrive Questionnaire Date Thrive assessed: 04/03/25 I am a: Patient What is your living situation today?: I have a steady place to live Within the past 12 months, did the food you bought not last and you didn't have the money to get more?: Never true Within the past 12 months, did you worry whether your food would run out before you got money to buy more?: Never true Do you have trouble paying for medicines?: I choose not to answer this question Do you have trouble getting transportation to medical appointments?: No Do you have trouble paying your heating and electricity bill?: No Do you have trouble taking care of your child, family member or friend?: No Do you have trouble with day-to-day activities such as bathing, preparing meals, shopping, managing finances, etc.?: No Are you currently unemployed and looking for a job?: No Are you interested in more education?: No Please select the resources that you would like help with: None Currently or been in a relationship where the following occur: No concerns reported THRIVE Score: 0 AUDIT C Alcohol Use Questionnaire (AUDIT-C) 1. How often do you have a drink containing alcohol?: Never 3. How often do you have six or more drinks on one occasion?: Never Total Score: 0 TYLER-7 AMB Questionnaire TYLER-7 Date TYLER - 7 assessed: 12/26/24 Source: Developed by Drs. Juventino Harper, Kaelyn Bruno, Ajay Briggs and colleagues, with an educational lake from [employer]. Physical exam (Primary Care) Vital Signs: Last Vital Signs Temp 97.3 F 07/09/25 14:48 Pulse 76 07/09/25 14:48 BP 120/60 07/09/25 14:48 Pulse Ox 97 07/09/25 14:48 Oxygen Delivery Method Room Air 07/09/25 14:48 BMI result Body Mass Index 20.8 Tobacco/Smoking Status: Tobacco use Status Tobacco use date assessed 06/08/25 07/09/25 14:49 Patient Tobacco Use Status Never used Tobacco 07/09/25 14:49 Tobacco use type Cigarette 07/09/25 14:49 e-Cigarette/Vaping Use Never Used 07/09/25 14:49 PHQ-9: PHQ-9 Score PHQ-9: Total score 10 07/09/25 16:46 Depression Screening Interpretation: Positive Thrive Assessment: Date of Thrive Assessment Date Thrive assessed 04/03/25 07/09/25 14:49 Currently or been in a relationship where the following occur: No concerns reported Const General: alert; No acute distress Eyes Conjunctivae: conjunctivae normal Resp Auscultation: clear to auscultation bilaterally Cardio Rate: regular rate Rhythm: regular rhythm GI Inspection: Yes normal to inspection Extrem General: Yes normal to inspection and No edema Immunizations Tenivac (PF) 5 Lf unit-2 Lf unit/0.5 mL intramuscular syringe Performing Provider: Chiara Diggs MD Performing Location: [facility] Administered by: ESME Jovel on 07/09/25 16:47 Dose Route Admin Location Dispensed Lot Number Expiration Date NDC Scientific Specialist 0.5 mL IM Right Deltoid 0.5 mL [id number] 02/03/27 52854-035-88 [employer] Total Dispensed Waste 0.5 mL 0 % VIS Given Date VIS Provided VIS Publication Date 07/09/25 Single Vaccine 21 Eligibility Eligibility Date Funding Source Not [facility] Eligible 07/09/25 Private Coding Level of Care Code Est Pt Level 4 (55280) Complex EM visit Add On G2211 Diagnoses Gastroesophageal reflux disease without esophagitis K21.9 Esophagitis presence: without esophagitis Secondary malignant neoplasm of retroperitoneum and peritoneum C78.6 Chronic low back pain M54.5; G89.29 Recurrent major depression F33.9 Impaired fasting blood sugar R73.01 Headache R51.9; G89.29 Headache chronicity pattern: chronic headache Headache type: unspecified Intractability: not intractable Assessment & Plan Assessment & Plan (1) GERD (gastroesophageal reflux disease): Code(s): K21.9 - Gastro-esophageal reflux disease without esophagitis Category: Medical Qualifiers: Esophagitis presence: without esophagitis Qualified Code(s): K21.9 - Gastro-esophageal reflux disease without esophagitis Plan: Avoid the foods that causes that usually spicy foods, tomato products, juices, coffee, soda and foods that your sensitive to. After eating do not lie down, allow 3-4 hours before in lie down. And keep the head of bed above 30 degrees to avoid the acid from going up. 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 Harrison Code(s): M54.5 - Low back pain; G89.29 - Other chronic pain Category: Medical (4) Recurrent major depression: Comment: Private counsellor Code(s): F33.9 - Major depressive disorder, recurrent, unspecified Category: Medical Plan: Continue with present medication duloxetine Topamax (5) Impaired fasting blood sugar: Code(s): R73.01 - Impaired fasting glucose Category: Medical (6) Headache: Code(s): R51.9 - Headache, unspecified Category: Medical Qualifiers: Headache chronicity pattern: chronic headache Headache type: unspecified Intractability: not intractable Qualified Code(s): R51.9 - Headache, unspecified; G89.29 - Other chronic pain Plan History of Present Illness The patient is a 75-year-old female presenting for a follow-up visit. She has a history of malignant neoplasm of the retroperitoneum and peritoneum d iagnosed in 2018, which required extensive abdominal surgery including radical abdominal resection, right nephroureterectomy, right adrenalectomy, right colectomy, small bowel resection, and superior mesenteric vein thrombosis lysis. The patient also underwent lysis of adhesions during the surgery. She has a history of gastroesophageal reflux disease (GERD), insomnia, chronic low back pain, and depression. The patient also has a history of cardiac arrest and deep vein thrombosis (DVT), which was provoked by intravenous access. The patient has been diagnosed with atrial fibrillation and anemia, with recent blood work showing hemoglobin levels at 11.4 g/dL and hematocrit at 35.9%. Her renal function has shown some decline with creatinine levels rising to 1.37 mg/dL. The patient has been identified as prediabetic with a hemoglobin A1c of 6.2%. She has been advised to monitor her carbohydrate intake and increase physical activity to manage her blood sugar levels. The patient has a pancreatic cyst and a thickened sigmoid colon, which were evaluated by gastroenterology. A colonoscopy was performed, and the findings were reassuring. She reports experiencing headaches, nausea, and weight loss, which have been ongoing for several months. The patient has been eating frequently due to constant hunger, yet continues to lose weight. The patient has a hernia that becomes prominent with certain activities, and she has been advised to avoid lifting heavy objects to prevent complications. Health Maintenance - Colonoscopy performed in February 2025, advised to repeat in 2 years - Bone density test conducted in May 2025 - Mammogram is due - Discussed shingles vaccination, recommended at pharmacy - Discussed tetanus vaccination, recommended every 10 years - Discussed flu vaccination, recommended in August Social History - Reports being very sedentary with limited physical activity - Reports frequent eating due to constant hunger Review of Systems - Cardiovascular: Reports history of cardiac arrest and atrial fibrillation. Denies current chest pain or palpitations. - Gastrointestinal: Reports nausea and frequent eating due to constant hunger. Denies diarrhea. - Neurological: Reports headaches and dizziness. Denies recent changes in vision or hearing. - Musculoskeletal: Reports chronic low back pain. - Psychiatric: Reports depression and insomnia. Physical Exam Results - Labs: Hemoglobin 11.4 g/dL, Hematocrit 35.9%, Creatinine 1.37 mg/dL, Hemoglobin A1c 6.2% - Imaging: Colonoscopy in February 2025, findings reassuring - Imaging: Pancreatic cyst and thickened sigmoid colon noted on CT Plan Patient was informed and verbally consented to the use of an ambient scribe for clinic note documentation during this visit. 1. Malignant Neoplasm Of The Retroperitoneum And Peritoneum The patient has a history of malignant neoplasm of the retroperitoneum and peritoneum, treated with extensive abdominal surgery in 2018. Follow-up care includes monitoring for recurrence and managing any complications from the surgery. 2. Gastroesophageal Reflux Disease (Gerd) The patient continues to manage GERD with current medications and monitoring of symptoms. 3. Insomnia The patient reports ongoing insomnia and has been prescribed Zolpidem with a request for a 90-day supply. 4. Chronic Low Back Pain The patient continues to experience chronic low back pain, managed with current medications and lifestyle modifications. 5. Depression The patient is managing depression with duloxetine and continues to monitor symptoms. 6. History Of Cardiac Arrest The patient has a history of cardiac arrest, with ongoing monitoring for cardiovascular health. 7. Deep Vein Thrombosis (Dvt) The patient has a history of DVT, provoked by intravenous access, and continues to be monitored for recurrence. 8. Atrial Fibrillation The patient is being monitored for atrial fibrillation, with ongoing management of symptoms and risk factors. 9. Anemia The patient has anemia with recent lab results showing hemoglobin at 11.4 g/dL and hematocrit at 35.9%. Further evaluation and management are planned to address the anemia. 10. Prediabetes The patient has been identified as prediabetic with a hemoglobin A1c of 6.2%. Lifestyle modifications including dietary changes and increased physical activity have been recommended. 11. Pancreatic Cyst The patient has a pancreatic cyst, which is being monitored by gastroenterology. 12. Thickened Sigmoid Colon The patient has a thickened sigmoid colon, with reassuring findings on colonoscopy. 13. Headaches The patient reports headaches, which are being evaluated with a planned CT scan of the brain. 14. Nausea The patient reports nausea, with ongoing evaluation and management of symptoms. 15. Weight Loss The patient reports weight loss despite frequent eating, with ongoing evaluation by gastroenterology. 16. Hernia The patient has a hernia that becomes prominent with certain activities, and she has been advised to avoid lifting heavy objects to prevent complications. Discussion Notes During the visit, we discussed the patient's ongoing management of her multiple medical conditions, including GERD, insomnia, and depression. We reviewed her recent lab results, which indicated anemia and prediabetes, and discussed lifestyle modifications to manage her blood sugar levels. We also addressed her concerns about weight loss and frequent hunger, with plans for further evaluation by gastroenterology. The patient was advised to avoid heavy lifting due to her hernia and to follow up with recommended screenings and vaccinations. Patient Instructions - Continue current medications for GERD, insomnia, and depression. - Monitor carbohydrate intake and increase physical activity to manage blood sugar levels. - Avoid heavy lifting to prevent hernia complications. - Follow up with gastroenterology for evaluation of weight loss and frequent hunger. - Schedule and attend recommended screenings and vaccinations, including colonoscopy, bone density test, mammogram, shingles, tetanus, and flu shots. Orders: Orders Free T4 (Free Thyroxine) 3 Months R73.01 - Impaired fasting glucose Thyroid Stimulating Hormone 3 Months R73.01 - Impaired fasting glucose Magnesium 3 Months R73.01 - Impaired fasting glucose Uric Acid 3 Months R73.01 - Impaired fasting glucose CT head/brain wo IV con Today G89.29 - Other chronic pain, R51.9 - Headache, unspecified Comprehensive Met. Panel 3 Months R73.01 - Impaired fasting glucose Complete Blood Count Auto Diff 3 Months R73.01 - Impaired fasting glucose Hemoglobin A1c 3 Months R73.01 - Impaired fasting glucose Lipid Panel 3 Months E78.00 - Pure hypercholesterolemia, unspecified, R73.01 - Impaired fasting glucose Vitamin B12 and Folate 3 Months R73.01 - Impaired fasting glucose Vitamin D 25-OH Total 3 Months R73.01 - Impaired fasting glucose UA CC w/rflx Micro + Cult 3 Months R30.0 - Dysuria, R73.01 - Impaired fasting glucose Td Immunization Today Z23 - Encounter for immunization Medications: Refilled zolpidem 10 mg PO BEDTIME PRN 90 tabs 1RF insomnia 90 days J45.20 - Mild intermittent asthma, uncomplicated
--- OUTSIDE RECORDS SUMMARY | 2025-07-09 15:55 | XMS_ITS | Encounter Summary ---
Author Organization [facility] Address [address] [place] [address] Phone Care Team Providers Care Truck Spotter Name Role Phone Chiara Diggs MD Primary Care Provider [phone] Joelle Grande MD, MS Unavailable Oly Kraus MD, MPH Unavailable + [phone] Daryn Donohue MD Unavailable Savanna Banegas Unavailable Cris Aburto LAB SUPPORT TECH Unavailable [phone] Arlin Cherry LAB SUPPORT TECH Unavailable [phone] Shun Schuster MD Unavailable Portia [email or web address] Jaspal Pettit MD Unavailable Joelle Grande MD, MS Unavailable Danuta Patel MD Unavailable [phone] Encounter Details Date Type Department Care Team (Late st Contact Info) Description 05/19/2020 Procedure Pass [facility], [facility] [place], [place] [address] [facility], [address] [place] [address] Social History Tobacco Use Types Packs/Day Years [...] Info) Description 07/02/2024 Procedure Pass [facility] Department, [facility], [place] [address], [address] [place] [address] 07/02/2024 Procedure Pass [facility] Imaging Department, [facility] [place] [address], [address] [place] [address] 07/25/2025 1:40 PM EDT Appointment [facility] Imaging Department, [facility], [place] [address], [address] [place] [address] Danuta Patel MD [address] [place] [id number] [email or web address] 07/29/2025 10:30 AM EDT [facility], [address], [address] [place] [address] Danuta Patel MD [address] [place] [phone] [email or web address] documented as of this encounter Visit Diagnoses [...] documented as of this encounter Care Teams Truck Spotter Relationship Specialty Start Date End Date Chiara Diggs MD [address] [place] [address] Drive [address] [place] [phone] PCP - General Internal Medicine 07/25/18 Joelle Grande MD, MS [address] [place] [phone] JOSÉ [email or web address] Surgeon Surgical Oncology 08/15/18 Oly Kraus MD, MPH [address] [place] [phone] [email or web address] Primary Oncologist Radiation Oncology 08/15/18 Daryn Donohue MD [address] [place] [phone] Referring Physician Urology 08/19/18 Savanna Banegas [address] [place] [phone] [email or web address] 3D Designer 08/19/18 Cris Aburto [address] [address] [email or web address] Saw Superintendent 12/26/18 Arlin Cherry, [facility] [address] [place] [address] [email or web address] Saw Superintendent Oncology 07/26/19 Shun Schuster MD [email or web address] Primary Oncologist Medical Oncology 04/12/20 06/21/21 Jaspal Ordoñez MD [address] [place] [phone] [email or web address] Palliative Care 12/22/20 Joelle Grande MD, MS [address] [place] [phone] JOSÉ [email or web address] Surgical Oncology 03/07/21 Danuta Patel MD [address] [place] [phone] [email or web address] Medical Oncology 06/22/21 documented as of this encounter Additional Source Comments The information contained in this document represents components of the legal health record. It is not the complete legal health record.[facility]
--- OUTSIDE RECORDS SUMMARY | 2025-07-09 15:55 | XMS_ITS | Encounter Summary ---
Author Organization [facility] Address [address] [place] [address] Phone Care Team Providers Care Forensic Investigator Name Role Phone Chiara Diggs MD Primary Care Provider [phone] Joelle Grande MD, MS Unavailable Oly Kraus MD, MPH Unavailable Daryn Donohue MD Unavailable Savanna Banegas Unavailable Cris Aburto IT BUSINESS SYSTEMS ANALYST Unavailable [phone] Arlin Cherry IT BUSINESS SYSTEMS ANALYST Unavailable Jaspal Ordoñez MD Unavailable Joelle Grande MD, MS Unavailable Danuta Patel MD Unavailable [phone] Encounter Details Date Type Department Care Team (Late st Contact Info) Description 06/22/2021 Procedure Pass [facility] [address] [place] [address] Social History Tobacco Use Types Packs/Day Years [...] Info) Description 07/02/2024 Procedure Pass [facility] Imaging Department, [facility], [place] [address] [facility], [address] [place] [address] 07/02/2024 Procedure Pass [facility] Imaging Department, [facility], [place] [address], [address] [place] [address] 07/25/2025 1:40 PM EDT Appointment [facility] Imaging Department, [facility], [place] [address], [address] [place] [address] Danuta Patel MD [address] [place] [phone] [email or web address] 07/29/2025 10:30 AM EDT [facility], [address], [address] [place] [address] Danuta Patel MD [address] [place] [phone] [email or web address] documented as of this [...] documented as of this encounter Care Teams Forensic Investigator Relationship Specialty Start Date End Date Chiara Diggs MD [address] [place] [address] [address] [place] [phone] PCP - General Internal Medicine 07/25/18 Joelle Grande MD, MS [address] [place] [phone] JOSÉ [email or web address] Surgeon Surgical Oncology 08/15/18 Oly Kraus MD, MPH [address] [place] [phone] [email or web address] Primary Oncologist Radiation Oncology 08/15/18 Daryn Donohue MD [address] [place] [address] Referring Physician Urology 08/19/18 Savanna Banegas [address] [place] [phone] [email or web address] Setter Machine 08/19/18 Cris Aburto, [address] [address] [email or web address] Nanoscience Technician 12/26/18 Arlin Cherry, [facility] [address] [place] [address] [email or web address] Nanoscience Technician Oncology 07/26/19 Jaspal Ordoñez MD [address] [place] [phone] [email or web address] Palliative Care 12/22/20 Joelle Grande MD, MS [address] [place] [phone] JOSÉ [email or web address] Surgical Oncology 03/07/21 Danuta Patel MD [address] [place] [phone] [email or web address] Medical Oncology 06/22/21 documented as of this encounter Additional Source Comments The information contained in this document represents components of the legal health record. It is not the complete legal health record.[facility]
--- OUTSIDE RECORDS SUMMARY | 2025-07-09 15:55 | XMS_ITS | Encounter Summary ---
Author Organization [facility] Address [address] [place] [address] Phone Care Team Providers Care Cupola Repairer Name Role Phone Chiara Diggs MD Primary Care Provider [phone] Joelle Grande MD, MS Unavailable Oly Kraus MD, MPH Unavailable + [phone] Daryn Donohue MD Unavailable [phone] Savanna Banegas Unavailable Cris Aburto GARMENT INSPECTOR Unavailable [phone] Arlin Cherry GARMENT INSPECTOR Unavailable [phone] Shun Schuster MD Unavailable Portia [email or web address] Jaspal Pettit MD Unavailable Joelle Grande MD, MS Unavailable Danuta Patel MD Unavailable [phone] Encounter Details Date Type Department Care Team (Late st Contact Info) Description 05/19/2020 Procedure Pass [facility], [facility] [place], [place] [address], Floor [address] [place] [address] Social History Tobacco Use Types Packs/Day Years [...] Info) Description 07/02/2024 Procedure Pass [facility] Imaging Department, [place] [address], Floor [address]1 [place] [address] 07/02/2024 Procedure Pass [facility] Imaging Department, [place] [address], Floor [address]1 [place] [address] 07/25/2025 1:40 PM EDT Appointment [facility] Imaging Department, [place] [address] [employer] [address], Floor [address]1 [place] [address] Danuta Patel MD [address] [place] [address] [email or web address] 07/29/2025 10:30 AM EDT [facility], [address], 6th [place] [address] Danuta Patel MD [address] [place] [address] [email or web address] documented as of this encounter Visit Diagnoses [...] documented as of this encounter Care Teams Cupola Repairer Relationship Specialty Start Date End Date Chiara Diggs MD [address] [place] [address] [address] [place] [phone] PCP - General Internal Medicine 07/25/18 Joelle Grande MD, MS [address] [place] [address] JOSÉ MANUEL@[facility] Surgeon Surgical Oncology 08/15/18 Oly Kraus MD, MPH [address] [place] [address] [email or web address] Primary Oncologist Radiation Oncology 08/15/18 Daryn Donohue MD [address] [place] [address] Referring Physician Urology 08/19/18 Savanna Banegas [address] [place] [address] NESTOR@[email or web address] Donor Services Manager 08/19/18 Cris Aburto [address] [address] [email or web address] Monotypist 12/26/18 Arlin Cherry, [facility] [address] [place] [address] [email or web address] Monotypist Oncology 07/26/19 Shun Schuster MD [email or web address] Primary Oncologist Medical Oncology 04/12/20 06/21/21 Jaspal Ordoñez MD [address] [place] [address] [email or web address] Palliative Care 12/22/20 Joelle Grande MD, MS [address] [place] [address] JOSÉ MANUEL@[email or web address] Surgical Oncology 03/07/21 Danuta Patel MD [address] [place] [address] Agnes@[email or web address] Medical Oncology 06/22/21 documented as of this encounter Additional Source Comments The information contained in this document represents components of the legal health record. It is not the complete legal health record.[facility]
--- OUTSIDE RECORDS SUMMARY | 2025-07-09 15:55 | XMS_ITS | Encounter Summary ---
Author Organization [facility] Address [address] [place] [address] Phone Care Team Providers Care Investment Advisor Name Role Phone Chiara Diggs MD Primary Care Provider [phone] Joelle Grande MD, MS Unavailable Oly Kraus MD, MPH Unavailable Daryn Donohue MD Unavailable Savanna Banegas Unavailable Cris Aburto [employer] Unavailable [phone] Alrin Cherry [employer]AT[employer] Unavailable Jaspal Ordoñez MD Unavailable Joelle Grande MD, MS Unavailable Danuta Patel MD Unavailable [phone] Encounter Details Date Type Department Care Team (Late st Contact Info) Description 01/18/2022 [facility] [place] [place] [address] [facility], Floor [address] [place] [address] Social History Tobacco Use Types Packs/Day Years [...] st Contact Info) Description 07/02/2024 Procedure Pass [facility] Imaging Department, [facility], [place] [address] [facility], [address]1 [place] [address] 07/02/2024 Procedure Pass [facility] Imaging Department, [facility], [place] [address] [facility], [place] [address] [place] [address] 07/25/2025 1:40 PM EDT Appointment [facility] Imaging Department, [facility], [place] [address] [facility], [address] [place] [address] Danuta Patel MD [address] [place] [address] Agnes@[email or web address] 07/29/2025 10:30 AM EDT [facility], [address], 6th [place] [address] Danuta Patel MD [address] [place] [address] Agnes@[facility] documented as of this encounter Visit Diagnoses Not on filedocumented in this encounter Additional Health Concerns 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 02/28/2019 12/20/2022 1:[address] Assessment Noted Time PHQ-2 Depression Total Score: 0 11/12/19 1:45 PM EST documented as of this encounter Care Teams Investment Advisor Relationship Specialty Start Date End Date Dontae Chiara Crandall MD [address] [place] [address] [address] [place] [phone] PCP - General Internal Medicine 07/25/18 Joelle Grande MD, MS [address] [place] [address] JOSÉ MANUEL@[facility] Surgeon Surgical Oncology 08/15/18 Oly Kraus MD, MPH [address] [place] [address] Lolis@[email or web address] Primary Oncologist Radiation Oncology 08/15/18 Daryn Donohue MD [address] [place] [address] Referring Physician Urology 08/19/18 Savanna Banegas [address] [place] [address] NESTOR@[facility] Development Trainer 08/19/18 Cris Aburto, [address] [address] [email or web address] Mental Health Program Manager 12/26/18 Arlin Cherry, [address] [address] Maykel@[facility] Mental Health Program Manager Oncology 07/26/19 Jaspal Ordoñez MD [address] [place] [address] [email or web address] Palliative Care 12/22/20 Joelle Grande MD, MS [address] [place] [address] JOSÉ MANUEL@[email or web address] Surgical Oncology 03/07/21 Danuta Patel MD [address] [place] [address] Agnes@[email or web address] Medical Oncology 06/22/21 documented as of this encounter Additional Source Comments The information contained in this document represents components of the legal health record. It is not the complete legal health record.[facility]
--- OUTSIDE RECORDS SUMMARY | 2025-07-09 15:55 | XMS_ITS | Encounter Summary ---
Author Organization [facility] Address [address] [place] [address] Phone Care Team Providers Care Research Analyst Name Role Phone Chiara Diggs MD Primary Care Provider [phone] Joelle Grande MD, MS Unavailable Oly Kraus MD, MPH Unavailable Daryn Donohue MD Unavailable Savanna Banegas Unavailable Cris Aburto PRINT WASHER Unavailable [phone] Arlin Cherry PRINT WASHER Unavailable Jaspal Ordoñez MD Unavailable Joelle Grande MD, MS Unavailable Danuta Patel MD Unavailable [phone] Encounter Details Date Type Department Care Team (Late st Contact Info) Description 09/27/2022 Procedure [facility] [place] [place] [address] [facility], [address]1 [place] [address] Social History Tobacco Use Types Packs/Day Years [...] st Contact Info) Description 07/02/2024 Procedure Pass [facility] Imaging Department, [facility], [place] [address] [facility], [address] [place] [address] 07/02/2024 Procedure Pass [facility] Imaging Department, [facility] [place] [address] [facility], [address] [place] [address] 07/25/2025 1:40 PM EDT Appointment [facility] Imaging Department, [facility] [place] [address] [facility], [address] [place] [address] Danuta Patel MD [address] [place] [phone] Agnes@[email or web address] 07/29/2025 10:30 AM EDT [facility], [address], 6th [place] [address] Danuta Patel MD [address] [place] [address] Agnes@[facility] documented as of this encounter Visit Diagnoses Not on filedocumented in this encounter Additional Health Concerns 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 02/28/2019 12/20/2022 1:[address] Assessment Noted Time PHQ-2 Depression Total Score: 0 11/12/19 1:45 PM EST documented as of this encounter Care Teams Research Analyst Relationship Specialty Start Date End Date Dontae Chiara Crandall MD [address] [place] [address] [address] [place] [phone] PCP - General Internal Medicine 07/25/18 Joelle Grande MD, MS [address] [place] [address] JOSÉ MANUEL@[facility] Surgeon Surgical Oncology 08/15/18 Oly Kraus MD, MPH [address] [place] [address] Lolis@[facility] Primary Oncologist Radiation Oncology 08/15/18 Daryn Donohue MD [address] [place] [address] Referring Physician Urology 08/19/18 Savanna Banegas [address] [place] [address] NESTOR@[facility] Interior Plant Caretaker 08/19/18 Cris Aburto, [address] [address] [email or web address] Equipment Manager 12/26/18 Arlin Cherry, [address] [address] Maykel@[facility] Equipment Manager Oncology 07/26/19 Jaspal Ordoñez MD [address] [place] [address] [email or web address] Palliative Care 12/22/20 Joelle Grande MD, MS [address] [place] [address] JOSÉ MANUEL@[email or web address] Surgical Oncology 03/07/21 Danuta Patel MD [address] [place] [address] [email or web address] Medical Oncology 06/22/21 documented as of this encounter Additional Source Comments The information contained in this document represents components of the legal health record. It is not the complete legal health record.[facility]
--- OUTSIDE RECORDS SUMMARY | 2025-07-09 15:55 | XMS_ITS | Encounter Summary ---
Author Organization [facility] Address [address] [place] [address] Phone Care Team Providers Care I O Psychologist Name Role Phone Chiara Diggs MD Primary Care Provider Joelle Grande MD, MS Unavailable Oly Kraus MD, MPH Unavailable Daryn Donohue MD Unavailable Savanna Banegas Unavailable Cris Aburto EX ASSISTANT/PROGRAM DIRECTOR Unavailable [phone] Arlin Cherry EX ASSISTANT/PROGRAM DIRECTOR Unavailable Jaspal Ordoñez MD Unavailable Joelle Grande MD, MS Unavailable Danuta Patel MD Unavailable [phone] Encounter Details Date Type Department Care Team (Late st Contact Info) Description 10/17/2023 Procedure Pass [facility], [place] Scan - [address] [address] Social History Tobacco Use Types Packs/Day Years [...] st Contact Info) Description 07/02/2024 Procedure Pass [facility] Imaging Department, [facility], [place] [address] [facility], [address]1 [place] [address] 07/02/2024 Procedure Pass [facility] Imaging Department, [facility], [address], [address] [place] [address] 07/25/2025 1:40 PM EDT Appointment [facility] Imaging Department, [facility], [place] [address] [facility], [address] [place] [address] Danuta Patel MD [address] [place] [phone] Agnes@[facility] 07/29/2025 10:30 AM EDT [facility], [address], 6th [place] [address] Danuta Patel MD [address] [place] [address] Agnes@[facility] documented as of this encounter Visit Diagnoses Not on filedocumented in this encounter Additional Health Concerns Assessment Noted Time PHQ-2 Depression Total Score: 0 11/12/19 20 1:45 PM EST documented as of this encounter Care Teams I O Psychologist Relationship Specialty Start Date End Date Chiara Diggs MD [address] [place] [address] [place] [phone] PCP - General Internal Medicine 07/25/18 Joelle Grande MD, MS [address] [place] [address] JOSÉ MANUEL@[facility] Surgeon Surgical Oncology 08/15/18 Oly Kraus MD, MPH [address] [place] [address] Lolis@[facility] Primary Oncologist Radiation Oncology 08/15/18 Daryn Donohue MD [address] [place] [address] Referring Physician Urology 08/19/18 Savanna Banegas [address] [place] [address] NESTOR@[facility] Clinic Assistant 08/19/18 Cris Aburto, [facility] [address] [place] [address] [email or web address] Grab Jack Man 12/26/18 Arlin Cherry, [facility] [address] [place] [address] Maykel@[facility] Grab Jack Man Oncology 07/26/19 Jaspal Ordoñez MD [address] [place] [address] Palliative Care 12/22/20 Joelle Grande MD, MS [address] [place] [address] JOSÉ MANUEL@[email or web address] Surgical Oncology 03/07/21 Danuta Patel MD [address] [place] [address] [email or web address] Medical Oncology 06/22/21 documented as of this encounter Additional Source Comments The information contained in this document represents components of the legal health record. It is not the complete legal health record.[facility]
--- OUTSIDE RECORDS SUMMARY | 2025-07-09 15:55 | XMS_ITS | Encounter Summary ---
Author Organization [facility] Address [address] [place] [address] Phone Care Team Providers Care Ror Engineer Name Role Phone Chiara Diggs MD Primary Care Provider [phone] Joelle Grande MD, MS Unavailable Oly Kraus MD, MPH Unavailable Daryn Donohue MD Unavailable Savanna Banegas Unavailable Cris Aburto [employer] Unavailable [phone] Arlin Cherry [employer] Unavailable [phone] Jaspal Ordoñez MD Unavailable Joelle Grande MD, MS Unavailable Danuta Patel MD Unavailable [phone] Encounter Details Date Type Department Care Team (Late st Contact Info) Description 04/25/2023 Procedure Pass [facility] [address] [place] [address] Social History Tobacco Use Types Packs/Day Years [...] [facility] Imaging Department, [facility], [place] [address] [facility], Floor [address] [place] [address] 07/02/2024 Procedure Pass [facility] Imaging Department, [facility], [place] [address] [facility], [address] [place] [address] 07/25/2025 1:40 PM EDT Appointment [facility] Imaging Department, [facility], [place] [address] [facility], [address] [place] [address] Danuta aPtel MD [address] [place] [address] Agnes@[facility] 07/29/2025 10:30 AM EDT [facility], [address], 6th [place] [address] Danuta Patel MD [address] [place] [address] Agnes@[facility] documented as of this encounter Visit Diagnoses Not on filedocumented in this encounter Additional Health Concerns Assessment Noted Time PHQ-2 Depression Total Score: 0 11/12/19 20 1:45 PM EST documented as of this encounter Care Teams Ror Engineer Relationship Specialty Start Date End Date Chiara Diggs MD [address] [place] [address] [place] [phone] PCP - General Internal Medicine 07/25/18 Joelle Grande MD, MS [address] [place] [address] JOSÉ MANUEL@[facility] Surgeon Surgical Oncology 08/15/18 Oly Kraus MD, MPH [address] [place] [phone] Lolis@[email or web address] Primary Oncologist Radiation Oncology 08/15/18 Daryn Donohue MD [address] [place] [address] Referring Physician Urology 08/19/18 Savanna Banegas [address] [place] [address] NESTOR@[facility] Counter Hand 08/19/18 Cris Aburto, [address] [address] [email or web address] Field Artillery Fire Control Man 12/26/18 Arlin Cherry, [address] [address] Maykel@[facility] Field Artillery Fire Control Man Oncology 07/26/19 Jaspal Ordoñez MD [address] [place] [address] [email or web address] Palliative Care 12/22/20 Joelle Grande MD, MS [address] [place] [address] JOSÉ MANUEL@[facility] Surgical Oncology 03/07/21 Danuta Patel MD [address] [place] [address] Agnes@[facility] Medical Oncology 06/22/21 documented as of this encounter Additional Source Comments The information contained in this document represents components of the legal health record. It is not the complete legal health record.[facility]
--- OUTSIDE RECORDS SUMMARY | 2025-07-09 15:55 | XMS_ITS | Encounter Summary ---
Author Organization [facility] Address [address] [place] [phone] Phone Care Team Providers Care Hoof Trimmer Name Role Phone Chiara Diggs MD Primary Care Provider [phone] Joelle Grande MD, MS Unavailable Oly Kraus MD, MPH Unavailable Daryn Donohue MD Unavailable Savanna Banegas Unavailable Cris Aburto DOCUMENTATION CONSULTANT Unavailable [phone] Arlin Cherry DOCUMENTATION CONSULTANT Unavailable [phone] Jaspal Ordoñez MD Unavailable Joelle Grande MD, MS Unavailable Danuta Patel MD Unavailable [phone] Encounter Details Date Type Department Care Team (Late st Contact Info) Description 01/18/2022 Procedure Pass [facility] [place] [place] [address] [facility], [address] [place] [address] Social History Tobacco Use Types Packs/Day Years [...] st Contact Info) Description 07/02/2024 Procedure Pass [facility] Imaging Department, [facility], [place] [address] [facility], Floor [address]1 [place] [address] 07/02/2024 Procedure Pass [facility] Imaging Department, [facility] [address] [facility], Floor [address] [place] [address] 07/25/2025 1:40 PM EDT Appointment [facility] Imaging Department, [facility], [place] [address] [facility], Floor [address] [place] [address] Danuta Patel MD [address] [place] [address] Agnes@[facility] 07/29/2025 10:30 AM EDT [facility], [address], 6th [place] [address] Danuta Patel MD [address] [place] [address] Agnes@[facility] documented as of this encounter Visit Diagnoses Not on filedocumented in this encounter Additional Health Concerns 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 02/28/2019 12/20/2022 1:[address] Assessment Noted Time PHQ-2 Depression Total Score: 0 11/12/19 1:45 PM EST documented as of this encounter Care Teams Hoof Trimmer Relationship Specialty Start Date End Date Dontae Chiara Crandall MD [address] [place] [address] [address] [place] [phone] PCP - General Internal Medicine 07/25/18 Joelle Grande MD, MS [address] [place] [address] JOSÉ MANUEL@[facility] Surgeon Surgical Oncology 08/15/18 Oly Kraus MD, MPH [address] [place] [address] Lolis@[facility] Primary Oncologist Radiation Oncology 08/15/18 Daryn Donohue MD [address] [place] [address] Referring Physician Urology 08/19/18 Savanna Banegas [address] [place] [address] NESTOR@[facility] Assembler Radio And Electrical 08/19/18 Cris Aburto, [address] [address] [email or web address] Insole Channeler 12/26/18 Arlin Cherry, [address] [address] Maykel@[facility] Insole Channeler Oncology 07/26/19 Jaspal Ordoñez MD [address] [place] [address] [email or web address] Palliative Care 12/22/20 Joelle Grande MD, MS [address] [place] [address] JOSÉ MANUEL@[facility] Surgical Oncology 03/07/21 Danuta Patel MD [address] [place] [address] Agnes@[email or web address] Medical Oncology 06/22/21 documented as of this encounter Additional Source Comments The information contained in this document represents components of the legal health record. It is not the complete legal health record.[facility]
--- OUTSIDE RECORDS SUMMARY | 2025-07-09 15:55 | XMS_ITS | Encounter Summary ---
Author Organization [facility] Address [address] [place] [address] Phone Care Team Providers Care Manager Asset Management Name Role Phone Chiara Diggs MD Primary Care Provider [phone] Joelle Grande MD, MS Unavailable Oly Kraus MD, MPH Unavailable + [phone] Daryn Donohue MD Unavailable [phone] Savanna Banegas Unavailable Cris Aburto MANAGER MBA Unavailable [phone] Arlin Cherry MANAGER MBA Unavailable [phone] Shun Schsuter MD Unavailable Portia Baez@[email or web address] Jaspal Pettit MD Unavailable Joelle Grande MD, MS Unavailable Danuta Patel MD Unavailable [phone] Encounter Details Date Type Department Care Team (Late st Contact Info) Description 08/25/2020 [facility] [address] [place] [address] Social History Tobacco Use Types Packs/Day Years [...] st Contact Info) Description 07/02/2024 Procedure Pass [facility] Imaging Department, [facility] [place] [address] [facility], Floor [address]1 [place] [address] 07/02/2024 Procedure Pass [facility] Imaging Department, [facility] [place] [address] [facility], [place] [address]1 [place] [address] 07/25/2025 1:40 PM EDT Appointment [facility] Imaging Department, [facility] [place] [address] [facility], [place] [address]1 [place] [address] Danuta Ptael MD [address] [place] [address] Agnes@[facility] 07/29/2025 10:30 AM EDT [facility], [address], 6th [place] [address] Danuta Patel MD [address] [place] [address] Agnes@[facility] documented as of this encounter [...] documented as of this encounter Care Teams Manager Asset Management Relationship Specialty Start Date End Date Chiara Diggs MD [address] [place] [address] [place] [phone] PCP - General Internal Medicine 07/25/18 Joelle Grande MD, MS [address] [place] [address] JOSÉ MANUEL@[facility] Surgeon Surgical Oncology 08/15/18 Oly Kraus MD, MPH [address] [place] [address] Lolis@[facility] Primary Oncologist Radiation Oncology 08/15/18 Daryn Donohue MD [address] [place] [address] Referring Physician Urology 08/19/18 Savanna Banegas [address] [place] [address] NESTOR@[facility] Molasses Feed Mixer 08/19/18 Cris Aburto, [facility] [address] [place] [address] [email or web address] Potato Sorter 12/26/18 Arlin Cherry, [facility] 35 [place] [address] Maykel@[facility] Potato Sorter Oncology 07/26/19 Shun Schuster MD Rohan@[email or web address] Primary Oncologist Medical Oncology 04/12/20 06/21/21 Jaspal Ordoñez MD [address] [place] [address] [email or web address] Palliative Care 12/22/20 Joelle Grande MD, MS [address] [place] [address] JOSÉ MANUEL@[email or web address] Surgical Oncology 03/07/21 Danuta Patel MD [address] [place] [address] Agnes@[email or web address] Medical Oncology 06/22/21 documented as of this encounter Additional Source Comments The information contained in this document represents components of the legal health record. It is not the complete legal health record.[facility]
--- OUTSIDE RECORDS SUMMARY | 2025-07-09 15:55 | XMS_ITS | Encounter Summary ---
Author Organization [facility] Address [address] [place] [address] Phone Care Team Providers Care Brass Wind Instruments Tube Bender Name Role Phone Chiara Diggs MD Primary Care Provider [phone] Joelle Grande MD, MS Unavailable Oly Kraus MD, MPH Unavailable + [phone] Daryn Donohue MD Unavailable [phone] Savanna Banegas Unavailable Cris Aburto IMMIGRATION ATTORNEY Unavailable +[phone] Arlin Cherry IMMIGRATION ATTORNEY Unavailable [phone] Shun Schuster MD Unavailable Portia [email or web address] Jaspal Pettit MD Unavailable Joelle Grande MD, MS Unavailable Danuta Patel MD Unavailable [phone] Encounter Details Date Type Department Care Team (Late st Contact Info) Description 08/25/2020 [facility] 70 [place] [address] Social History Tobacco Use Types Packs/Day Years [...] Info) Description 07/02/2024 Procedure Pass [facility] Imaging Department, [facility] [place] [address] [facility], Floor L1 [place] [address] 07/02/2024 Procedure Pass [facility] Imaging Department, [facility] [address] [facility], Floor L1 [place] [address] 07/25/2025 1:40 PM EDT Appointment [facility] Imaging Department, [facility], [place] [address] [facility], Floor L1 [place] [address] Danuta Patel MD [address] [place] [address] Agnes@[facility] 07/29/2025 10:30 AM EDT [facility], [address], 6th [place] [address] Danuta Patel MD [address] [place] [address] Agnes@[facility] documented as of this encounter Visit [...] documented as of this encounter Care Teams Brass Wind Instruments Tube Bender Relationship Specialty Start Date End Date Chiara Diggs MD [address] [place] [address] [place] [phone] PCP - General Internal Medicine 07/25/18 Joelle Grande MD, MS [address] [place] [address] JOSÉ MANUEL@[facility] Surgeon Surgical Oncology 08/15/18 Oly Kraus MD, MPH [address] [place] [address] Lolis@[email or web address] Primary Oncologist Radiation Oncology 08/15/18 Daryn Donohue MD [address] [place] [address] Referring Physician Urology 08/19/18 Savanna Banegas [address] [place] [address] NESTOR@[facility] Microfilmer 08/19/18 Cris Aburto, [facility] [address] [place] [address] [email or web address]@[email or web address] Care Professionals 12/26/18 Arlin Cherry, [facility] 35 [place] [address] Maykel@[facility] Care Professionals Oncology 07/26/19 Shun Schuster MD Rohan@[email or web address] Primary Oncologist Medical Oncology 04/12/20 06/21/21 Jaspal Ordoñez MD [address] [place] [address] [email or web address] Palliative Care 12/22/20 Joelle Grande MD, MS [address] [place] [address] JOSÉ MANUEL@[facility] Surgical Oncology 03/07/21 Danuta Patel MD [address] [place] [address] Agnes@[email or web address] Medical Oncology 06/22/21 documented as of this encounter Additional Source Comments The information contained in this document represents components of the legal health record. It is not the complete legal health record.[facility]
--- OUTSIDE RECORDS SUMMARY | 2025-07-09 15:55 | XMS_ITS | Encounter Summary ---
Author Organization [facility] Address [address] [place] [address] Phone Care Team Providers Care Steam Power Plant Operator Name Role Phone Chiara Diggs MD Primary Care Provider [phone] Joelle Grande MD, MS Unavailable Oly Kraus MD, MPH Unavailable Daryn Donohue MD Unavailable Savanna Banegas Unavailable Cris Aburto BOOTH USHER Unavailable + [phone] Arlin Cherry BOOTH USHER Unavailable Jaspal Ordoñez MD Unavailable Joelle Grande MD, MS Unavailable Danuta Patel MD Unavailable [phone] Encounter Details Date Type Department Care Team (Late st Contact Info) Description 06/22/2021 Procedure Pass [facility] [address] [place] [address] Social History Tobacco Use Types Packs/Day Years [...] st Contact Info) Description 07/02/2024 Procedure Pass [facility] Imaging Department, [facility], [place] [address] [facility], Floor L1 [place] [address] 07/02/2024 Procedure Pass [facility] Imaging Department, [facility], [place] [address] [facility], Floor L1 [place] [address] 07/25/2025 1:40 PM EDT Appointment [facility] Imaging Department, [facility], [place] [address] [facility], Floor [address]1 [place] [address] Danuta Patel MD [address] [place] [address] Agnes@[facility] 07/29/2025 10:30 AM EDT [facility], [address], 6th [place] [address] Danuta Patel MD [address] [place] [address] Agnes@[facility] documented as of this encounter Visit Diagnoses Not on filedocumented in this encounter Additional Health Concerns 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 02/28/2019 12/20/2022 1:[address] CoV-Presumed Comment:12/12: Symptom onset- fatigue, ST, cough, SOB 12/13: positive PCR outside lab ([facility])- Yohana Noble RN 12/12/2021 12/13/2021 01/01/2022 1:[address] Assessment Noted Time PHQ-2 Depression Total Score: 0 11/12/19 1:45 PM EST documented as of this encounter Care Teams Steam Power Plant Operator Relationship Specialty Start Date End Date Chiara Diggs MD [address] [place] [address] [address] [place] [phone] PCP - General Internal Medicine 07/25/18 Joelle Grande MD, MS [address] [place] [address] JOSÉ MANUEL@[facility] Surgeon Surgical Oncology 08/15/18 Oly Kraus MD, MPH [address] [place] [address] Lolis@[facility] Primary Oncologist Radiation Oncology 08/15/18 Daryn Donohue MD [address] [place] [address] Referring Physician Urology 08/19/18 Savanna Banegas [address] [place] [address] NESTOR@[facility] Doll Surgeon 08/19/18 Cris Aburto, [address] [address] [email or web address] Blue Crabber 12/26/18 Arlin Cherry, [facility] 35 [place] [address] Maykle@[facility] Blue Crabber Oncology 07/26/19 Jaspal Ordoñez MD [address] [place] [address] [email or web address] Palliative Care 12/22/20 Joelle Grande MD, MS [address] [place] [address] JOSÉ MANUEL@[email or web address] Surgical Oncology 03/07/21 Danuta Patel MD [address] [place] [address] Agnes@[facility] Medical Oncology 06/22/21 documented as of this encounter Additional Source Comments The information contained in this document represents components of the legal health record. It is not the complete legal health record.[facility]
--- OUTSIDE RECORDS SUMMARY | 2025-07-09 15:55 | XMS_ITS | Encounter Summary ---
Author Organization [facility] Address [address] [place] [address] Phone Care Team Providers Care Shiftman Name Role Phone Chiara Diggs MD Primary Care Provider [phone] Joelle Grande MD, MS Unavailable Oly Kraus MD, MPH Unavailable + [phone] Valerie Conti MD Unavailable [phone] Daryn Donohue MD Unavailable [phone] Savanna Banegas Unavailable Cris Aburto SPONGE PRESS OPERATOR Unavailable [phone] Arlin Cherry SPONGE PRESS OPERATOR Unavailable [phone] Shun Schuster MD Unavailable Portia Baez@[email or web address] Jaspal Pettit MD Unavailable Joelle Grande MD, MS Unavailable Danuta Patel MD Unavailable [phone] Encounter Details Date Type Department Care Team (Late st Contact Info) Description 04/07/2020 Procedure Pass [facility], [facility] [place] [address] [facility], Floor L1 [place] [address] Social History Tobacco Use Types Packs/Day Years [...] Contact Info) Description 07/02/2024 Procedure Pass [facility] Imaging Department, [facility], [place] [address] [facility], [facility] L1 [place] [address] 07/02/2024 Procedure Pass [facility] Imaging Department, [facility] [place] [address] [facility], [facility] [address]1 [place] [address] 07/25/2025 1:40 PM EDT Appointment [facility] Imaging Department, [facility], [place] [address] [facility], [facility] [address]1 [place] [address] Danuta Patel MD [address] [place] [address] Agnes@[facility] 07/29/2025 10:30 AM EDT [facility], [address], 6th [place] [address] Danuta Patel MD [address] [place] [address] Agnes@[facility] documented as of this encounter Visit Diagnoses [...] documented as of this encounter Care Teams Shiftman Relationship Specialty Start Date End Date Chiara Diggs MD [address] [facility] [address] [facility] [address] [place] [phone] PCP - General Internal Medicine 07/25/18 Joelle Grande MD, MS [address] [place] [address] JOSÉ MANUEL@[facility] Surgeon Surgical Oncology 08/15/18 Oly Kraus MD, MPH [address] [place] [address] Lolis@[email or web address] Primary Oncologist Radiation Oncology 08/15/18 Valerie Conti MD [address] [place] [address] Mariusz@[email or web address] Primary Oncologist Medical Oncology 08/15/18 04/11/20 Daryn Donohue MD [address] [place] [address] Referring Physician Urology 08/19/18 Savanna Banegas [address] [place] [address] NESTOR@[facility] Extrusion Press Supervisor 08/19/18 Cris Aburto, [facility] [address] [place] [address] delvin@[email or web address] Patternmaker Plaster And Plastic 12/26/18 Arlin Cherry, [facility] 35 [place] [address] Maykel@[facility] Patternmaker Plaster And Plastic Oncology 07/26/19 Shun Schuster MD Rohan@[email or web address] Primary Oncologist Medical Oncology 04/12/20 06/21/21 Jaspal Ordoñez MD [address] [place] [address] [email or web address] Palliative Care 12/22/20 Joelle Grande MD, MS [address] [place] [address] JOSÉ MANUEL@[facility] Surgical Oncology 03/07/21 Danuta Patel MD [address] [place] [address] Agnes@[facility] Medical Oncology 06/22/21 documented as of this encounter Additional Source Comments The information contained in this document represents components of the legal health record. It is not the complete legal health record.[facility]
--- OUTSIDE RECORDS SUMMARY | 2025-07-09 15:55 | XMS_ITS | Encounter Summary ---
Author Organization [facility] Address [address] [place] [address] Phone Care Team Providers Care Regional Clinical Director Name Role Phone Chiara Diggs MD Primary Care Provider [phone] Joelle Grande MD, MS Unavailable Oly Kraus MD, MPH Unavailable Daryn Donohue MD Unavailable Savanna Banegas Unavailable Cris Aburto REHABILITATION CASE COORDINATOR Unavailable [phone] Arlin Cherry REHABILITATION CASE COORDINATOR Unavailable Jaspal Ordoñez MD Unavailable Joelle Grande MD, MS Unavailable Danuta Patel MD Unavailable [phone] Encounter Details Date Type Department Care Team (Late st Contact Info) Description 09/27/2022 Procedure Pass [facility] [place] [address] [facility], Floor L1 [place] [address] Social History Tobacco Use Types Packs/Day Years [...] Info) Description 07/02/2024 Procedure Pass [facility] Imaging Department, [facility], [place] [address] [facility], Floor L1 [place] [address] 07/02/2024 Procedure Pass [facility] Imaging Department, [facility], [place] [address] [facility], Floor [address]1 [place] [address] 07/25/2025 1:40 PM EDT Appointment [facility] Imaging Department, [facility], [place] [address] [facility], Floor [address]1 [place] [address] Danuta Patel MD [address] [place] [address] Agnes@[facility] 07/29/2025 10:30 AM EDT [facility], [address], 6th [place] [address] Danuta Patel MD [address] [place] [address] Agnes@[facility] documented as of this encounter Visit Diagnoses Not on filedocumented in this encounter Additional Health Concerns 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 02/28/2019 12/20/2022 1:[address] Assessment Noted Time PHQ-2 Depression Total Score: 0 11/12/19 1:45 PM EST documented as of this encounter Care Teams Regional Clinical Director Relationship Specialty Start Date End Date Dontae Chiara Crandall MD [address] [place] [address] Drive [address] [place] [phone] PCP - General Internal Medicine 07/25/18 Joelle Grande MD, MS [address] [place] [address] JOSÉ MANUEL@[facility] Surgeon Surgical Oncology 08/15/18 Oly Kraus MD, MPH [address] [place] [address] Lolis@[facility] Primary Oncologist Radiation Oncology 08/15/18 Daryn Donohue MD [address] [place] [address] Referring Physician Urology 08/19/18 Savanna Banegas [address] [place] [address] NESTOR@[facility] Sterilisation Technician 08/19/18 Cris Aburto, [address] [address] [email or web address] Netting Inspector 12/26/18 Arlin Cherry, [address] [address] Maykel@[facility] Netting Inspector Oncology 07/26/19 Jaspal Ordoñez MD [address] [place] [address] [email or web address] Palliative Care 12/22/20 Joelle Grande MD, MS [address] [place] [address] JOSÉ MANUEL@[facility] Surgical Oncology 03/07/21 Danuta Patel MD [address] [place] [address] Agnes@[facility] Medical Oncology 06/22/21 documented as of this encounter Additional Source Comments The information contained in this document represents components of the legal health record. It is not the complete legal health record.[facility]
--- OUTSIDE RECORDS SUMMARY | 2025-07-09 15:55 | XMS_ITS | Encounter Summary ---
Author Organization [facility] Address [address] [place] [address] Phone Care Team Providers Care Farebox Repairer Name Role Phone Chiara Diggs MD Primary Care Provider [phone] Joelle Grande MD, MS Unavailable Oly Kraus MD, MPH Unavailable + [phone] Daryn Donohue MD Unavailable Savanna Banegas Unavailable Cris Aburto GOLD LEAF PRINTER Unavailable [phone] Arlin Cherry GOLD LEAF PRINTER Unavailable [phone] Shun Schuster MD Unavailable Portia [email or web address] Jaspal Pettit MD Unavailable Joelle Grande MD, MS Unavailable Danuta Patel MD Unavailable [phone] Encounter Details Date Type Department Care Team (Late st Contact Info) Description 12/22/2020 Procedure Pass [facility], [facility] [place] [address] [facility], Floor [address]1 [place] [address] Social History Tobacco Use Types Packs/Day Years [...] st Contact Info) Description 07/02/2024 Procedure Pass [facility] Imaging Department, [facility] [place] [address] [facility], Floor L1 [place] [address] 07/02/2024 Procedure Pass [facility] Imaging Department, [facility] [place] [address] [facility], Floor L1 [place] [address] 07/25/2025 1:40 PM EDT Appointment [facility] Imaging Department, [facility], [place] [address] [facility], Floor L1 [place] [address] Danuta Patel MD [address] [place] [address] Agnes@[facility] 07/29/2025 10:30 AM EDT [facility], [address], 6th [place] [address] Danuta Patel MD [address] [place] [address] Agnes@[facility] documented as of this encounter Visit Diagnoses [...] documented as of this encounter Care Teams Farebox Repairer Relationship Specialty Start Date End Date Chiara Diggs MD [address] [place] [address] [address] [place] [phone] PCP - General Internal Medicine 07/25/18 Joelle Grande MD, MS [address] [place] [address] JOSÉ MANUEL@[facility] Surgeon Surgical Oncology 08/15/18 Oly Kraus MD, MPH [address] [place] [address] Lolis@[facility] Primary Oncologist Radiation Oncology 08/15/18 Daryn Donohue MD [address] [place] [address] Referring Physician Urology 08/19/18 Savanna Banegas [address] [place] [address] NESTOR@[facility] Flag Signaler 08/19/18 Cris Aburto, [address] [address] delvin@[facility] Leisure Studies Professor 12/26/18 Arlin Cherry, [facility] [address] [place] [address] Maykel@[facility] Leisure Studies Professor Oncology 07/26/19 Shun Schuster MD Rohan@[facility] Primary Oncologist Medical Oncology 04/12/20 06/21/21 Jaspal Ordoñez MD [address] [place] [address] Palliative Care 12/22/20 Joelle Grande MD, MS [address] [place] [address] JOSÉ MANUEL@[email or web address] Surgical Oncology 03/07/21 Danuta Patel MD [address] [place] [address] Agnes@[facility] Medical Oncology 06/22/21 documented as of this encounter Additional Source Comments The information contained in this document represents components of the legal health record. It is not the complete legal health record.[facility]
--- OUTSIDE RECORDS SUMMARY | 2025-07-09 15:55 | XMS_ITS | Encounter Summary ---
Author Organization [facility] Address [address] [place] [address] Phone Care Team Providers Care Command Center Analyst Name Role Phone Chiara Diggs MD Primary Care Provider [phone] Joelle Grande MD, MS Unavailable Oly Kraus MD, MPH Unavailable + [phone] Daryn Donohue MD Unavailable Savanna Banegas Unavailable Cris Aburto JACK SETTER Unavailable +[phone] Arlin Cherry JACK SETTER Unavailable [phone] Shun Schuster MD Unavailable Portia [email or web address] Jaspal Pettit MD Unavailable Joelle Grande MD, MS Unavailable Danuta Patel MD Unavailable [phone] Encounter Details Date Type Department Care Team (Late st Contact Info) Description 12/22/2020 Procedure Pass [facility], [facility] [place], [place] 450 [facility], Floor L1 [place] [address] Social History Tobacco Use Types Packs/Day Years [...] [facility] Imaging [facility], [facility], [place] [address] [facility], Floor L1 [place] [address] 07/02/2024 Procedure Pass [facility] Imaging Department, [facility], [place] [address] [facility], [place] L1 [place] [address] 07/25/2025 1:40 PM EDT Appointment [facility] Imaging Department, [facility], [place] [address] [facility], Floor L1 [place] [address] Danuta Patel MD [address] [place] [address] Agnes@[facility] 07/29/2025 10:30 AM EDT [facility], [address], 6th [place] [address] Danuta Patel MD [address] [place] [address] Agnes@[facility] documented as of this encounter Visit Diagnoses [...] documented as of this encounter Care Teams Command Center Analyst Relationship Specialty Start Date End Date Chiara Diggs MD [address] [place] [address] Drive [address] [place] [phone] PCP - General Internal Medicine 07/25/18 Joelle Grande MD, MS [address] [place] [address] JOSÉ MANUEL@[facility] Surgeon Surgical Oncology 08/15/18 Oly Kraus MD, MPH [address] [place] [address] Lolis@[email or web address] Primary Oncologist Radiation Oncology 08/15/18 Daryn Donohue MD [address] [place] [address] Referring Physician Urology 08/19/18 Savanna Banegas [address] [place] [address] NESTOR@[email or web address] Swimming Instructor 08/19/18 Cris Aburto, [address] [address] [email or web address] Bookmobile Clerk 12/26/18 Arlin Cherry, [facility] [address] [place] [address] Maykel@[facility] Bookmobile Clerk Oncology 07/26/19 Shun Schuster MD Rohan@[email or web address] Primary Oncologist Medical Oncology 04/12/20 06/21/21 Jaspal Ordoñez MD [address] [place] [address] Palliative Care 12/22/20 Joelle Grande MD, MS [address] [place] [address] JOSÉ MANUEL@[facility] Surgical Oncology 03/07/21 Danuta Patel MD [address] [place] [address] [email or web address] Medical Oncology 06/22/21 documented as of this encounter Additional Source Comments The information contained in this document represents components of the legal health record. It is not the complete legal health record.[facility]
--- OUTSIDE RECORDS SUMMARY | 2025-07-09 15:55 | XMS_ITS | Encounter Summary ---
Author Organization [facility] Address [address] [place] [address] Phone Care Team Providers Care Health Services Administrator Name Role Phone Chiara Diggs MD Primary Care Provider [phone] Joelle Grande MD, MS Unavailable Oly Kraus MD, MPH Unavailable + [phone] Valerie Conti MD Unavailable [phone] Daryn Donohue MD Unavailable [phone] Savanna Banegas Unavailable Cris Aburto BREAKDOWN MILL OPERATOR Unavailable +[phone] Arlin Cherry BREAKDOWN MILL OPERATOR Unavailable [phone] Shun Schuster MD Unavailable Portia [email or web address] Jaspal Pettit MD Unavailable Joelle Grande MD, MS Unavailable Danuta Patel MD Unavailable [phone] Encounter Details Date Type Department Care Team (Late st Contact Info) Description 04/07/2020 Procedure Pass [facility], [facility] [place], [place] 450 [facility], Floor L1 [place] [address] Social History Tobacco Use Types Packs/Day Years [...] [facility] Imaging [facility], [facility], [place] [address] [facility], [facility] L1 [place] [address] 07/02/2024 Procedure Pass [facility] Imaging Department, [facility], [place] [address] [facility], [facility] L1 [place] [address] 07/25/2025 1:40 PM EDT Appointment [facility] Imaging Department, [facility], [place] [address] [facility], [facility] L1 [place] [address] Danuta Patel MD [address] [place] [address] Agnes@[facility] 07/29/2025 10:30 AM EDT [facility], [address], 6th [place] [address] Danuta Patel MD [address] [place] [address] Agnes@[facility] [...] as of this encounter Care Teams Health Services Administrator Relationship Specialty Start Date End Date Chiara Diggs MD [address] [place] [phone] PCP - General Internal Medicine 07/25/18 Joelle Grande MD, MS [address] [place] [address] JOSÉ MANUEL@[facility] Surgeon Surgical Oncology 08/15/18 Oly Kraus MD, MPH [address] [place] [address] Lolis@[email or web address] Primary Oncologist Radiation Oncology 08/15/18 Valerie Conti MD [address] [place] [address] Mariusz@[email or web address] Primary Oncologist Medical Oncology 08/15/18 04/11/20 Daryn Donohue MD [address] [place] [address] Referring Physician Urology 08/19/18 Savanna Banegas 450 [place] [address] NESTOR@[facility] Hoop Punch Operator Helper 08/19/18 Cris Aburto, [facility] 450 [place] [address] [email or web address] Chuck Wagon Driver 12/26/18 Arlin Cherry, [facility] 35 [place] [address] Maykel@[facility] Chuck Wagon Driver Oncology 07/26/19 Shun Schuster MD Rohan@[email or web address] Primary Oncologist Medical Oncology 04/12/20 06/21/21 Jaspal Ordoñez MD [address] [place] [address] [email or web address] Palliative Care 12/22/20 Joelle Grande MD, MS [address] [place] [address] JOSÉ MANUEL@[facility] Surgical Oncology 03/07/21 Danuta Patel MD [address] [place] [address] Agnes@[facility] Medical Oncology 06/22/21 documented as of this encounter Additional Source Comments The information contained in this document represents components of the legal health record. It is not the complete legal health record.[facility]
--- OUTSIDE RECORDS SUMMARY | 2025-07-09 15:55 | XMS_ITS | Encounter Summary ---
Author Organization [facility] Address [address] [place] [address] Phone Care Team Providers Care Manager Merchandise Name Role Phone Chiara Diggs MD Primary Care Provider [phone] Joelle Grande MD, MS Unavailable Oly Kraus MD, MPH Unavailable Daryn Donohue MD Unavailable Savanna Banegas Unavailable Cris Aburto OUTBOARD MOTOR TESTER Unavailable + [phone] Arlin Cherry OUTBOARD MOTOR TESTER Unavailable [phone] Jaspal Ordoñez MD Unavailable Joelle Grande MD, MS Unavailable Danuta Patel MD Unavailable [phone] Encounter Details Date Type Department Care Team (Late st Contact Info) Description 04/10/2023 Procedure Pass [facility] Admitting Dept Virtual Department 30 [place] [address] Social History Tobacco Use Types [...] Contact Info) Description 07/02/2024 Procedure Pass [facility] Imaging [facility], [facility], [place] 450 [facility], Floor L1 [place] [address] 07/02/2024 Procedure Pass [facility] Imaging Department, [facility], [address], Floor L1 [place] [address] 07/25/2025 1:40 PM EDT Appointment [facility] Imaging Department, [facility], [place] [address] [facility], Floor L1 [place] [address] Danuta Patel MD [address] [place] [address] Agnes@[facility] 07/29/2025 10:30 AM EDT [facility], [address], 6th [place] [address] Danuta Patel MD [address] [place] [address] Agnes@[facility] documented as of this encounter Visit Diagnoses Not on filedocumented in this encounter Additional Health Concerns Assessment Noted Time PHQ-2 Depression Total Score: 0 11/12/19 20 1:45 PM EST documented as of this encounter Care Teams Manager Merchandise Relationship Specialty Start Date End Date Chiara Diggs MD [address] [place] [address] [place] [phone] PCP - General Internal Medicine 07/25/18 Joelle Grande MD, MS [address] [place] [address] JOSÉ MANUEL@[facility] Surgeon Surgical Oncology 08/15/18 Oly Kraus MD, MPH [address] [place] [address] Lolis@[facility] Primary Oncologist Radiation Oncology 08/15/18 Daryn Donohue MD [address] [place] [address] Referring Physician Urology 08/19/18 Savanna Banegas [address] [place] [address] NESTOR@[facility] Corporate Concierge 08/19/18 Cris Aburot, [facility] 450 [place] [address] [email or web address] Line Therapist 12/26/18 Arlin Cherry, [facility] 35 [place] [address] Maykel@[facility] Line Therapist Oncology 07/26/19 Jaspal Ordoñez MD [address] [place] [address] [email or web address] Palliative Care 12/22/20 Joelle Grande MD, MS [address] [place] [address] JOSÉ MANUEL@[facility] Surgical Oncology 03/07/21 Danuta Patel MD [address] [place] [address] Agnes@[facility] Medical Oncology 06/22/21 documented as of this encounter Additional Source Comments The information contained in this document represents components of the legal health record. It is not the complete legal health record.[facility]
--- OUTSIDE RECORDS SUMMARY | 2025-07-09 15:55 | XMS_ITS | Encounter Summary ---
Author Organization [facility] Address [address] [place] [address] Phone Care Team Providers Care Social Service Director Name Role Phone Chiara Diggs MD Primary Care Provider [phone] Joelle Grande MD, MS Unavailable Oly Kraus MD, MPH Unavailable Daryn Donohue MD Unavailable Savanna Banegas Unavailable Cris Aburto HULL GRINDER Unavailable + [phone] Arlin Cherry HULL GRINDER Unavailable [phone] Jaspal Ordoñez MD Unavailable Joelle Grande MD, MS Unavailable Danuta Patel MD Unavailable [phone] Encounter Details Date Type Department Care Team (Late st Contact Info) Description 10/17/2023 Procedure Pass [facility], Ct Scan - [address] [address] Social History Tobacco Use Types Packs/Day Years [...] st Contact Info) Description 07/02/2024 Procedure Pass [facility] Imaging Department, [facility], [place] [address] [facility], Floor L1 [place] [address] 07/02/2024 Procedure Pass [facility] Imaging Department, [facility], [address], Floor L1 [place] [address] 07/25/2025 1:40 PM EDT Appointment [facility] Imaging Department, [facility], [place] [address] [facility], Floor L1 [place] [address] Danuta Patel MD [address] [place] [address] Agnes@[facility] 07/29/2025 10:30 AM EDT [facility], [address], 6th [place] [address] Danuta Patel MD [address] [place] [address] Agnes@[facility] documented as of this encounter Visit Diagnoses Not on filedocumented in this encounter Additional Health Concerns Assessment Noted Time PHQ-2 Depression Total Score: 0 11/12/19 20 1:45 PM EST documented as of this encounter Care Teams Social Service Director Relationship Specialty Start Date End Date Chiara Diggs MD [address] [place] [address] [place] [phone] PCP - General Internal Medicine 07/25/18 Jeolle Grande MD, MS [address] [place] [address] JOSÉ MANUEL@[facility] Surgeon Surgical Oncology 08/15/18 Oly Kraus MD, MPH [address] [place] [address] Lolis@[facility] Primary Oncologist Radiation Oncology 08/15/18 Daryn Donohue MD [address] [place] [address] Referring Physician Urology 08/19/18 Savanna Banegas [address] [place] [address] NESTOR@[facility] Anesthesiologist Assistant 08/19/18 Cris Aburto, [facility] 450 [place] [address] [email or web address] Wire Loop Machine Operator 12/26/18 Arlin Cherry, [facility] 35 [place] [address] Maykel@[facility] Wire Loop Machine Operator Oncology 07/26/19 Jaspal Ordoñez MD [address] [place] [address] Palliative Care 12/22/20 Joelle Grande MD, MS [address] [place] [address] JOSÉ MANUEL@[facility] Surgical Oncology 03/07/21 Danuta Patel MD [address] [place] [address] Agnes@[email or web address] Medical Oncology 06/22/21 documented as of this encounter Additional Source Comments The information contained in this document represents components of the legal health record. It is not the complete legal health record.[facility]
--- OUTSIDE RECORDS SUMMARY | 2025-07-09 15:55 | XMS_ITS | Encounter Summary ---
Author Organization [facility] Address [address] [place] [address] Phone Care Team Providers Care Batter Scaler Name Role Phone Chiara Diggs MD Primary Care Provider [phone] Joelle Grande MD, MS Unavailable Oly Kraus MD, MPH Unavailable Daryn Donohue MD Unavailable [phone] Savanna Banegas Unavailable Cris Aburto KNIFE CUTTER Unavailable + [phone] Arlin Cherry KNIFE CUTTER Unavailable [phone] Jaspal Ordoñez MD Unavailable Joelle Grande MD, MS Unavailable Danuta Patel MD Unavailable [phone] Encounter Details Date Type Department Care Team (Late st Contact Info) Description 04/25/2023 Procedure Pass [facility] [address] [place] [address] Social History Tobacco Use Types Packs/Day Years [...] Contact Info) Description 07/02/2024 Procedure Pass [facility] Imaging Department, [facility], [place] [address] [facility], Floor L1 [place] [address] 07/02/2024 Procedure Pass [facility] Imaging Department, [facility], [place] [address] [facility], Floor L1 [place] [address] 07/25/2025 1:40 PM EDT Appointment [facility] Imaging Department, [facility], [place] [address] [facility], Floor [address]1 [place] [address] Danuta Patel MD [address] [place] [address] Agnes@[facility] 07/29/2025 10:30 AM EDT [facility], [address], 6th [place] [address] Danuta Patel MD [address] [place] [address] Agnes@[facility] documented as of this encounter Visit Diagnoses Not on filedocumented in this encounter Additional Health Concerns Assessment Noted Time PHQ-2 Depression Total Score: 0 11/12/19 20 1:45 PM EST documented as of this encounter Care Teams Batter Scaler Relationship Specialty Start Date End Date Chiara Diggs MD [address] [place] [address] [place] [phone] PCP - General Internal Medicine 07/25/18 Joelle Grande MD, MS [address] [place] [address] JOSÉ MANUEL@[facility] Surgeon Surgical Oncology 08/15/18 Oly Kraus MD, MPH [address] [place] [address] Lolis@[facility] Primary Oncologist Radiation Oncology 08/15/18 Daryn Donohue MD [address] [place] [address] Referring Physician Urology 08/19/18 Savanna Banegas [address] [place] [address] NESTOR@[facility] Inspector Floor Sub Assembly 08/19/18 Cris Aburto, [address] [address] [email or web address] Ambulance Assistant 12/26/18 Arlin Cherry, [address] [address] Maykel@[facility] Ambulance Assistant Oncology 07/26/19 Jaspal Ordoñez MD [address] [place] [address] [email or web address] Palliative Care 12/22/20 Joelle Grande MD, MS [address] [place] [address] JOSÉ MANUEL@[email or web address] Surgical Oncology 03/07/21 Danuta Patel MD [address] [place] [address] Agnes@[email or web address] Medical Oncology 06/22/21 documented as of this encounter Additional Source Comments The information contained in this document represents components of the legal health record. It is not the complete legal health record.[facility]
--- OUTSIDE RECORDS SUMMARY | 2025-07-09 15:56 | XMS_ITS | Encounter Summary ---
Author Organization [facility] Address [address] [place] [address] Phone Care Team Providers Care Gluing Machine Operator Electronic Name Role Phone Chiara Diggs MD Primary Care Provider [phone] Joelle Grande MD, MS Unavailable Oly Kraus MD, MPH Unavailable + [phone] Valerie Conti MD Unavailable [phone] Daryn Donohue MD Unavailable Savanna Banegas Unavailable Sindy Isaacs BRICKMASON SUPERVISOR Unavailable [phone] Cris Aburto BRICKMASON SUPERVISOR Unavailable [phone] Arlin Cherry BRICKMASON SUPERVISOR Unavailable [phone] Shun Schuster MD Unavailable Portia [email or web address] Jaspal Pettit MD Unavailable Joelle Grande MD, MS Unavailable Danuta Patel MD Unavailable [phone] Encounter Details Date Type Department Care Team (Late st Contact Info) Description 02/20/2019 Procedure Pass [facility] [address] [place] [address] Social History Tobacco Use Types Packs/Day Years [...] Contact Info) Description 07/02/2024 Procedure Pass [facility] Imaging Department, [facility], [place] [address] [facility], Floor L1 [place] [address] 07/02/2024 Procedure Pass [facility] Imaging Department, [facility], [place] [address] [facility], Floor L1 [place] [address] 07/25/2025 1:40 PM EDT Appointment [facility] Imaging Department, [facility], [place] [address] [facility], Floor L1 [place] [address] Danuta Patel MD [address] [place] [address] [email or web address] 07/29/2025 10:30 AM EDT [facility], [facility] Cancer [address], 6th [place] [address] Danuta Patel MD [address] [place] [address] Agnes@[facility] documented as of this encounter [...] documented as of this encounter Care Teams Gluing Machine Operator Electronic Relationship Specialty Start Date End Date Po, Chiara Crandall MD [address] [place] [address] [place] [phone] PCP - General Internal Medicine 07/25/18 Joelle Grande MD, MS [address] [place] [address] JOSÉ MANUEL@[facility] Surgeon Surgical Oncology 08/15/18 Oly Kraus MD, MPH [address] [place] [address] Lolis@[facility] Primary Oncologist Radiation Oncology 08/15/18 Valerie Conti MD [address] [place] [address] Mariusz@[facility] Primary Oncologist Medical Oncology 08/15/18 04/11/20 Daryn Donohue MD [address] [place] [address] Referring Physician Urology 08/19/18 Savanna Banegas 450 [place] [address] NESTOR@[facility] Waitstaff 08/19/18 Sindy Isaacs, [address] [address] Gregorio@[facility] Learning Strategist Oncology 09/16/18 07/25/19 Cris Aburto, [address] [address] delvin@[facility] Learning Strategist 12/26/18 Arlin Cherry, [address] [address] Maykel@[facility] Learning Strategist Oncology 07/26/19 Shun Schuster MD Rohan@[facility] Primary Oncologist Medical Oncology 04/12/20 06/21/21 Jaspal Ordoñez MD [address] [place] [address] Palliative Care 12/22/20 Joelle Grande MD, MS [address] [place] [address] JOSÉ MANUEL@[facility] Surgical Oncology 03/07/21 Danuta Patel MD [address] [place] [address] Agnes@[facility] Medical Oncology 06/22/21 documented as of this encounter Additional Source Comments The information contained in this document represents components of the legal health record. It is not the complete legal health record.[facility]
--- OUTSIDE RECORDS SUMMARY | 2025-07-09 15:56 | XMS_ITS | Encounter Summary ---
Author Organization [facility] Address [address] [place] [address] Phone Care Team Providers Care Director Of Pediatric Rehabilitation Name Role Phone Chiara Diggs MD Primary Care Provider [phone] Joelle Grande MD, MS Unavailable Oly Kraus MD, MPH Unavailable + [phone] Valerie Conti MD Unavailable +[phone] Daryn Donohue MD Unavailable [phone] Savanna Banegas Unavailable Sindy Isaacs COMMERCIAL ACCOUNTANT Unavailable [phone] Cris Aburto COMMERCIAL ACCOUNTANT Unavailable +[phone] Arlin Cherry COMMERCIAL ACCOUNTANT Unavailable +[phone] Shun Schuster MD Unavailable Portia [email or web address] Jaspal Pettit MD Unavailable Joelle Grande MD, MS Unavailable Danuta Patel MD Unavailable +[phone] Encounter Details Date Type Department Care Team (Late st Contact Info) Description 02/04/2019 Procedure Pass [facility] Endoscopy Department [address] [place] [address] Social History Tobacco Use Types Packs/Day Years [...] Contact Info) Description 07/02/2024 Procedure Pass [facility] Imaging Department, [facility], [place] [address] [facility], Floor L1 [place] [address] 07/02/2024 Procedure Pass [facility] Imaging Department, [facility] [place] [address] [facility], Floor L1 [place] [address] 07/25/2025 1:40 PM EDT Appointment [facility] Imaging Department, [facility] [place] [address] [facility], Floor [address]1 [place] [address] Danuta Patel MD [address] [place] [address] Agnes@[facility] 07/29/2025 10:30 AM EDT [facility], [address], 6th [place] [address] Danuta Patel MD [address] [place] [address] Agnes@[facility] documented as of [...] documented as of this encounter Care Teams Director Of Pediatric Rehabilitation Relationship Specialty Start Date End Date Dontae, Chiara Crandall MD [address] [place] [address] [address] [place] [phone] PCP - General Internal Medicine 07/25/18 Joelle Grande MD, MS [address] [place] [address] JOSÉ MANUEL@[facility] Surgeon Surgical Oncology 08/15/18 Oly Kraus MD, MPH [address] [place] [address] Lolis@[facility] Primary Oncologist Radiation Oncology 08/15/18 Valerie Conti MD [address] [place] [address] [email or web address] Primary Oncologist Medical Oncology 08/15/18 04/11/20 Daryn Donohue MD [address] [place] [address] Referring Physician Urology 08/19/18 Savanna Banegas [address] [place] [address] NESTOR@[email or web address] Slot Machine Mechanic 08/19/18 Sindy Isaacs, [address] [address] [email or web address]@[facility] Carboy Filler Oncology 09/16/18 07/25/19 Cris Aburto, [address] [address] delvin@[facility] Carboy Filler 12/26/18 Arlin Cherry, [address] [address] Maykel@[facility] Carboy Filler Oncology 07/26/19 Shnu Schuster MD Rohan@[facility] Primary Oncologist Medical Oncology 04/12/20 06/21/21 Jaspal Ordoñez MD [address] [place] [address] [email or web address] Palliative Care 12/22/20 Joelle Grande MD, MS [address] [place] [address] JOSÉ MANUEL@[facility] Surgical Oncology 03/07/21 Danuta Patel MD [address] [place] [address] Agnes@[facility] Medical Oncology 06/22/21 documented as of this encounter Additional Source Comments The information contained in this document represents components of the legal health record. It is not the complete legal health record.[facility]
--- OUTSIDE RECORDS SUMMARY | 2025-07-09 15:56 | XMS_ITS | Encounter Summary ---
Author Organization [facility] Address [address] [place] [address] Phone Care Team Providers Care Grain Elevator Agent Name Role Phone Chiara Diggs MD Primary Care Provider [phone] Joelle Grande MD, MS Unavailable Oly Kraus MD, MPH Unavailable + [phone] Valerie Conti MD Unavailable +[phone] Daryn Donohue MD Unavailable [phone] Savanna Banegas Unavailable Sindy Isaacs ELECTRIC SOLDERER Unavailable [phone] Cris Aburto ELECTRIC SOLDERER Unavailable [phone] Arlin Cherry ELECTRIC SOLDERER Unavailable [phone] Shun Schuster MD Unavailable Portia [email or web address] Jaspal Pettit MD Unavailable Joelle Grande MD, MS Unavailable Danuta Patel MD Unavailable [phone] Encounter Details Date Type Department Care Team (Late st Contact Info) Description 03/27/2019 Procedure Pass [facility] Periop [address] [place] [address] Social History Tobacco Use Types Packs/Day Years [...] Contact Info) Description 07/02/2024 Procedure Pass [facility] Imaging Department, [facility], [place] [address] [facility], Floor L1 [place] [address] 07/02/2024 Procedure Pass [facility] Imaging Department, [facility] [place] [address] [facility], Floor L1 [place] [address] 07/25/2025 1:40 PM EDT Appointment [facility] Imaging Department, [facility] [place] [address] [facility], Floor [address]1 [place] [address] Danuta Patel MD [address] [place] [address] Agnes@[facility] 07/29/2025 10:30 AM EDT [facility], [address], 6th [place] [address] Danuta Patel MD [address] [place] [address] Agnes@[facility] documented as of this encounter Visit Diagnoses [...] documented as of this encounter Care Teams Grain Elevator Agent Relationship Specialty Start Date End Date Dontae, Chiara Crandall MD [address] [place] [address] [address] [place] [address] [phone] PCP - General Internal Medicine 07/25/18 Joelle Grande MD, MS [address] [place] [address] JOSÉ MANUEL@[facility] Surgeon Surgical Oncology 08/15/18 Oly Kraus MD, MPH [address] [place] [address] Lolis@[facility] Primary Oncologist Radiation Oncology 08/15/18 Valerie Conti MD [address] [place] [address] [email or web address] Primary Oncologist Medical Oncology 08/15/18 04/11/20 Daryn Donohue MD [address] [place] [address] Referring Physician Urology 08/19/18 Savanna Banegas [address] [place] [address] NESTOR@[facility] Stna 08/19/18 Sindy Isaacs, [address] [address] SindyBettyShital@[facility] Analytical Research Chemist Oncology 09/16/18 07/25/19 Cris Aburto, [address] [address] [email or web address] Analytical Research Chemist 12/26/18 Arlin Cherry, [address] [address] Maykel@[facility] Analytical Research Chemist Oncology 07/26/19 Shun Schuster MD Rohan@[email or web address] Primary Oncologist Medical Oncology 04/12/20 06/21/21 Jaspal Ordoñez MD [address] [place] [address] [email or web address] Palliative Care 12/22/20 Joelle Grande MD, MS [address] [place] [address] JOSÉ MANUEL@[facility] Surgical Oncology 03/07/21 Danuta Patel MD [address] [place] [address] Agnes@[facility] Medical Oncology 06/22/21 documented as of this encounter Additional Source Comments The information contained in this document represents components of the legal health record. It is not the complete legal health record.[facility]
--- OUTSIDE RECORDS SUMMARY | 2025-07-09 15:56 | XMS_ITS | Encounter Summary ---
Author Organization [facility] Address [address] [place] [address] Phone Care Team Providers Care Cupola Melting Supervisor Name Role Phone Chiara Diggs MD Primary Care Provider [phone] Joelle Grande MD, MS Unavailable Oly Kraus MD, MPH Unavailable + [phone] Valerie Conti MD Unavailable +[phone] Daryn Donohue MD Unavailable [phone] Savanna Banegas Unavailable Sindy Isaacs PUBLIC TRANSIT SPECIALIST Unavailable [phone] Cris Aburto PUBLIC TRANSIT SPECIALIST Unavailable [phone] Arlin Cherry PUBLIC TRANSIT SPECIALIST Unavailable [phone] Shun Schuster MD Unavailable Portia [email or web address] Jaspal ePttit MD Unavailable Joelle Grande MD, MS Unavailable Danuta Patel MD Unavailable [phone] Encounter Details Date Type Department Care Team (Late st Contact Info) Description 12/24/2018 Transcribe Orders [facility] Echocardiography [address] [place] [address] Chiara Diggs MD [address] [place] [phone] Social History Tobacco Use Types Packs/Day [...] st Contact Info) Description 07/02/2024 Procedure Pass [facility] Imaging Department, [facility] [place] [address] [facility], Floor L1 [place] [address] 07/02/2024 Procedure Pass [facility] Imaging Department, [facility] [place] [address] [facility], Floor L1 [place] [address] 07/25/2025 1:40 PM EDT Appointment [facility] Imaging Department, [facility] [place] [address] [facility], Floor [address]1 [place] [address] Danuta Patel MD [address] [place] [address] Agnes@[facility] 07/29/2025 10:30 AM EDT [facility], [address], 6th [place] [address] Danuta Patel MD [address] [place] [address] Agnes@[facility] documented as of this encounter [...] as of this encounter Care Teams Cupola Melting Supervisor Relationship Specialty Start Date End Date Po, Chiara Crandall MD [address] [place] [address] [address] [place] [phone] PCP - General Internal Medicine 07/25/18 Joelle Grande MD, MS [address] [place] [address] JOSÉ MANUEL@[facility] Surgeon Surgical Oncology 08/15/18 Oly Kraus MD, MPH [address] [place] [address] Lolis@[facility] Primary Oncologist Radiation Oncology 08/15/18 Valerie Conti MD [address] [place] [address] Mariusz@[facility] Primary Oncologist Medical Oncology 08/15/18 04/11/20 Daryn Donohue MD [address] [place] [address] Referring Physician Urology 08/19/18 Savanna Banegas [address] [place] [address] NESTOR@[facility] Gold Burnisher 08/19/18 Sindy Isaacs, [address] [address] Gregorio@[facility] Circulation Tender Oncology 09/16/18 07/25/19 Cris Aburto, [address] [address] [email or web address] Circulation Tender 12/26/18 Arlin Cherry, [address] [address] Maykel@[facility] Circulation Tender Oncology 07/26/19 Shun Schuster MD Rohan@[email or web address] Primary Oncologist Medical Oncology 04/12/20 06/21/21 Jaspal Ordoñez MD [address] [place] [address] [email or web address] Palliative Care 12/22/20 Joelle Grande MD, MS [address] [place] [address] JOSÉ MANUEL@[facility] Surgical Oncology 03/07/21 Danuta Patel MD [address] [place] [address] Agnes@[facility] Medical Oncology 06/22/21 documented as of this encounter Additional Source Comments The information contained in this document represents components of the legal health record. It is not the complete legal health record.[facility]
--- OUTSIDE RECORDS SUMMARY | 2025-07-09 15:56 | XMS_ITS | Encounter Summary ---
Author Organization [facility] Address [address] [place] [address] Phone Care Team Providers Care Talent Acquisition Consultant Name Role Phone Chiara Diggs MD Primary Care Provider [phone] Joelle Grande MD, MS Unavailable Oly Kraus MD, MPH Unavailable + [phone] Valerie Conti MD Unavailable [phone] Daryn Donohue MD Unavailable Savanna Banegas Unavailable Sindy Isaacs BELLOWS ASSEMBLER Unavailable [phone] Cris Aburto BELLOWS ASSEMBLER Unavailable [phone] Arlin Cherry BELLOWS ASSEMBLER Unavailable +[phone] Shun Schuster MD Unavailable Portia [email or web address] Jaspal Pettit MD Unavailable Joelle Grande MD, MS Unavailable Danuta Patel MD Unavailable [phone] Encounter Details Date Type Department Care Team (Late st Contact Info) Description 08/19/2018 Procedure Pass [facility] [address] [place] [address] Social History Tobacco Use Types Packs/Day Years Used Date Smoking Tobacco: Former Cigarettes 0.3 2 1 962 - 2065 Smokeless Tobacco: Never Alcohol Use Standard Drinks/Week [...] st Contact Info) Description 07/02/2024 Procedure Pass [facility] Imaging Department, [facility] [place] [address] [facility], Floor [address]1 [place] [address] 07/02/2024 Procedure Pass [facility] Imaging Department, [facility] [place] [address] [facility], Floor [address]1 [place] [address] 07/25/2025 1:40 PM EDT Appointment [facility] Imaging Department, [facility], [place] [address] [facility], Floor [address]1 [place] [address] Danuta Patel MD [address] [place] [address] Agnes@[facility] 07/29/2025 10:30 AM EDT [facility], [address], 6th [place] [address] Danuta Patel MD [address] [place] [address] Agnes@[facility] documented as of this encounter Visit [...] documented as of this encounter Care Teams Talent Acquisition Consultant Relationship Specialty Start Date End Date Chiara Diggs MD [address] [place] [address] [address] [place] [phone] PCP - General Internal Medicine 07/25/18 Joelle Grande MD, MS [address] [place] [address] JOSÉ MANUEL@[facility] Surgeon Surgical Oncology 08/15/18 Oly Kraus MD, MPH [address] [place] [address] Lolis@[facility] Primary Oncologist Radiation Oncology 08/15/18 Valerie Conti MD [address] [place] [address] Mariusz@[email or web address] Primary Oncologist Medical Oncology 08/15/18 04/11/20 Daryn Donohue MD [address] [place] [address] Referring Physician Urology 08/19/18 Savanna Banegas [address] [place] [address] NESTOR@[facility] Ride Operator 08/19/18 Isaacs, Sindy, [address] [address] Gregorio@[facility] Electorate Officer Oncology 09/16/18 07/25/19 Cedric GuillaumeCris, [address] [address] [email or web address] Electorate Officer 12/26/18 Arlin Cherry, [address] [address] Maykel@[facility] Electorate Officer Oncology 07/26/19 Shun Schuster MD Rohan@[facility] Primary Oncologist Medical Oncology 04/12/20 06/21/21 Jaspal Ordoñez MD [address] [place] [address] Palliative Care 12/22/20 Joelle Grande MD, MS [address] [place] [address] JOSÉ MANUEL@[facility] Surgical Oncology 03/07/21 Danuta Patel MD [address] [place] [address] Agnes@[facility] Medical Oncology 06/22/21 documented as of this encounter Additional Source Comments The information contained in this document represents components of the legal health record. It is not the complete legal health record.[facility]
--- OUTSIDE RECORDS SUMMARY | 2025-07-09 15:56 | XMS_ITS | Encounter Summary ---
Author Organization [facility] Address [address] [place] [address] Phone Care Team Providers Care Academic Affairs Assistant Name Role Phone Chiara Diggs MD Primary Care Provider [phone] Joelle Grande MD, MS Unavailable Oly Kraus MD, MPH Unavailable + [phone] Valerie Conti MD Unavailable [phone] Daryn Donohue MD Unavailable [phone] Savanna Banegas Unavailable Sindy Isaacs RESIDENT MEDICAL OFFICER Unavailable +[phone] Cris Aburto RESIDENT MEDICAL OFFICER Unavailable +[phone] Arlin Cherry RESIDENT MEDICAL OFFICER Unavailable +[phone] Shun Schuster MD Unavailable Portia [email or web address] Jaspal Pettit MD Unavailable Joelle Grande MD, MS Unavailable Danuta Patel MD Unavailable +[phone] Reason for Referral * MRI/CAT Scan - Closed Specialty Diagnoses / Procedures Referred By Contac t Referred To Contact Procedures MRI Abdomen Outside (No Interpretation) Donnie Moore MD Phone: tel: fax: mailto:[email or web address] Referral ID Status Reason Start Date Expiration Date Visits Re quested Visits Authorized [id number] Closed 08/15/2018 08/15/2019 1 1 * MRI/CAT Scan - Closed Specialty Diagnoses / Procedures Referred By Contac t Referred To Contact Procedures MRI Spine (Neuro) Outside (No Interpretation) Donnie Moore MD Phone: tel: fax: mailto:[email or web address] Referral ID Status Reason Start Date Expiration Date Visits Re quested Visits Authorized [id number] Closed 08/15/2018 08/15/2019 1 1 * MRI/CAT Scan - Closed Specialty Diagnoses / Procedures Referred By Contac t Referred To Contact Procedures MRI Abdomen Outside (No Interpretation) Donnie Moore MD Phone: tel: fax: mailto:[email or web address] Referral ID Status Reason Start Date Expiration Date Visits Re quested Visits Authorized [id number] Closed 08/15/2018 08/15/2019 1 1 * MRI/CAT Scan - Closed Specialty Diagnoses / Procedures Referred By Contac t Referred To Contact Procedures CT Abdomen/Pelvis Outside (No Interpretation) Donnie Moore MD Phone: tel: fax: mailto:[email or web address] Referral ID Status Reason Start Date Expiration Date Visits Re quested Visits Authorized [id number] Closed 08/15/2018 08/15/2019 1 1 Encounter Details Date Type Department Care Team (Late st Contact Info) Description 08/15/2018 Transcribe Orders [facility] [address] [place] [address] Samina Zaragoza [address] [place] [address] ROSE@[facility] Social History Tobacco Use Types Packs/Day Years [...] Info) Description 07/02/2024 Procedure Pass [facility] Imaging Department, [facility] [place] [address] [facility], Floor [address]1 [place] [address] 07/02/2024 Procedure Pass [facility] Imaging Department, [facility] [place] [address] [facility], Floor [address]1 [place] [address] 07/25/2025 1:40 PM EDT Appointment [facility] Imaging Department, [facility] [place] [address] [facility], Floor [address] [place] [address] Danuta Patel MD [address] [place] [address] Agnes@[facility] 07/29/2025 10:30 AM EDT [facility], [facility] [address], 6th [place] [address] Danuta Patel MD [address] [place] [address] Dor[email or web address] documented as of this encounter Results * MRI Abdomen Outside (No Interpretation) (08/15/2018 1:15 AM EDT) Narrative PERCIPIO_BW - 08/15/2018 11:02 AM EDT This study is for PACS storage only and not for interpretation. us Donnie Moore MD IMG OUTSIDE IMAGING W/OUT INT ERPRETATION Final Result Performing Organization Address [facility] de Phone Number PERCIPIO_BWH * XR SPINE OUTSIDE(NO INTERPRETATION) (08/15/2018 1:00 AM EDT) Narrative PERCIPIO_BW - 08/15/2018 11:02 AM EDT This study is for PACS storage only and not for interpretation. us Donnie Moore MD IMG OUTSIDE IMAGING W/OUT INT ERPRETATION Final Result Performing Organization Address [facility] de Phone Number PERCIPIO_BWH * MRI Spine (Neuro) Outside (No Interpretation) (08/15/2018 12:45 AM EDT) Narrative PERCIPIO_BW - 08/15/2018 11:02 AM EDT This study is for PACS storage only and not for interpretation. us Donnie Moore MD IMG OUTSIDE IMAGING W/OUT INT ERPRETATION Final Result Performing Organization Address [facility] de Phone Number PERCIPIO_BWH * US Abdomen Outside (No Interpretation) (08/15/2018 12:30 AM EDT) Narrative PERCIPIO_BW - 08/15/2018 11:02 AM EDT This study is for PACS storage only and not for interpretation. us Donnie Moore MD IMG OUTSIDE IMAGING W/OUT INT ERPRETATION Final Result Performing Organization Address [facility] Co de Phone Number PERCIPIO_BWH * MRI Abdomen Outside (No Interpretation) (08/15/2018 12:15 AM EDT) Narrative JOSE ELIAS - 08/15/2018 10:40 AM EDT This study is for PACS storage only and not for interpretation. us Donnie Moore MD IMG OUTSIDE IMAGING W/OUT INT ERPRETATION Final Result CARLOS_SILVIA * CT Abdomen/Pelvis Outside (No Interpretation) (08/15/2018 [...] outside lab (needs to be uploaded to [employer])- Yohana Noble RN 12/12/2021 12/13/2021 01/01/2022 1:[address] documented as of this encounter Care Teams Academic Affairs Assistant Relationship Specialty Start Date End Date Chiara Diggs MD [address] [place] [address] [address] [place] [phone] PCP - General Internal Medicine 07/25/18 Joelle Grande MD, MS [address] [place] [address] JSOÉ MANUEL@[email or web address] Surgeon Surgical Oncology 08/15/18 Oly Kraus MD, MPH [address] [place] [address] Lolis@[facility] Primary Oncologist Radiation Oncology 08/15/18 Valerie Conti MD [address] [place] [address] Mariusz@[facility] Primary Oncologist Medical Oncology 08/15/18 04/11/20 Daryn Donohue MD [address] [place] [address] Referring Physician Urology 08/19/18 Savanna Banegas [address] [place] [address] NESTOR@[facility] Residential Sales Manager 08/19/18 Sindy Isaacs, [address] [address] Gregorio@[facility] Associate Manager Oncology 09/16/18 07/25/19 Cris Aburto, [address] [address] delvin@[facility] Associate Manager 12/26/18 Arlin Cherry, [address] [address] Maykel@[facility] Associate Manager Oncology 07/26/19 Shun Schuster MD Rohan@[facility] Primary Oncologist Medical Oncology 04/12/20 06/21/21 Jaspal Ordoñez MD [address] [place] [address] Palliative Care 12/22/20 Joelle Grande MD, MS [address] [place] [address] JOSÉ MANUEL@[email or web address] Surgical Oncology 03/07/21 Danuta Patel MD [address] [place] [address] Agnes@[email or web address] Medical Oncology 06/22/21 documented as of this encounter Additional Source Comments The information contained in this document represents components of the legal health record. It is not the complete legal health record.[facility]
--- OUTSIDE RECORDS SUMMARY | 2025-07-09 15:56 | XMS_ITS | Encounter Summary ---
Author Organization [facility] Address [address] [place] [address] Phone Care Team Providers Care Design Engineer Products Name Role Phone Chiara Diggs MD Primary Care Provider [phone] Joelle Grande MD, MS Unavailable Oly Kraus MD, MPH Unavailable + [phone] Valerie Conti MD Unavailable +[phone] Daryn Donohue MD Unavailable Savanna Banegas Unavailable Sindy Isaacs AUTO SLIP COVER INSTALLER Unavailable +[phone] Cris Aburto AUTO SLIP COVER INSTALLER Unavailable +[phone] Arlin Cherry AUTO SLIP COVER INSTALLER Unavailable [phone] Shun Schuster MD Unavailable Portia [email or web address] Jaspal Pettit MD Unavailable Joelle Grande MD, MS Unavailable Danuta Patel MD Unavailable +[phone] Encounter Details Date Type Department Care Team (Late st Contact Info) Description 02/04/2019 Procedure Pass [facility] [address] [place] [address] Social History Tobacco Use Types Packs/Day Years [...] st Contact Info) Description 07/02/2024 Procedure Pass [facility] Imaging Department, [facility] [place] [place] [address] [facility], Floor [address]1 [place] [address] 07/02/2024 Procedure Pass [facility] Imaging Department, [facility] [place] [address] [facility], Floor [address]1 [place] [address] 07/25/2025 1:40 PM EDT Appointment [facility] Imaging Department, [facility] [place] [address] [facility], Floor [address] [place] [address] Danuta Patel MD [address] [place] [address] Agnes@[email or web address] 07/29/2025 10:30 AM EDT [facility], [facility] Cancer [address], 6th [place] [address] Danuta Patel MD [address] [place] [address] [email or web address] documented as of this encounter Visit [...] documented as of this encounter Care Teams Design Engineer Products Relationship Specialty Start Date End Date Chiara Diggs MD [address] [place] [address] [address] [place] [phone] PCP - General Internal Medicine 07/25/18 Joelle Grande MD, MS [address] [place] [address] JOSÉ MANUEL@[email or web address] Surgeon Surgical Oncology 08/15/18 Oly Kraus MD, MPH [address] [place] [address] Lolis@[email or web address] Primary Oncologist Radiation Oncology 08/15/18 Valerie Conti MD [address] [place] [address] [email or web address] Primary Oncologist Medical Oncology 08/15/18 04/11/20 Daryn Donohue MD [address] [place] [address] Referring Physician Urology 08/19/18 Savanna Banegas [address] [place] [address] NESTOR@[facility] Archival Records Clerk 08/19/18 Isaacs, Sindy, [address] [address] [email or web address] Quality Assurance Monitor Body Oncology 09/16/18 07/25/19 Cirs Aburto, [address] [address] [email or web address] Quality Assurance Monitor Body 12/26/18 Arlin Cherry, [address] [address] [email or web address]@[email or web address] Quality Assurance Monitor Body Oncology 07/26/19 Shun Schuster MD Rohan@[email or web address] Primary Oncologist Medical Oncology 04/12/20 06/21/21 Jaspal Ordoñez MD [address] [place] [address] [email or web address] Palliative Care 12/22/20 Joelle Grande MD, MS [address] [place] [address] JOSÉ MANUEL@[facility] Surgical Oncology 03/07/21 Danuta Patel MD [address] [place] [address] Agnes@[email or web address] Medical Oncology 06/22/21 documented as of this encounter Additional Source Comments The information contained in this document represents components of the legal health record. It is not the complete legal health record.[facility]
--- OUTSIDE RECORDS SUMMARY | 2025-07-09 15:56 | XMS_ITS | Encounter Summary ---
Author Organization [facility] Address [address] [place] [address] Phone Care Team Providers Care Rental Sales Associate Name Role Phone Chiara Diggs MD Primary Care Provider [phone] Joelle Grande MD, MS Unavailable Oly Kraus MD, MPH Unavailable + [phone] Valerie Conti MD Unavailable [phone] Daryn Donohue MD Unavailable Savanna Banegas Unavailable Sindy Isaacs POULTRY OFFAL ICER Unavailable +[phone] Cris Aburto POULTRY OFFAL ICER Unavailable +[phone] Arlin Cherry POULTRY OFFAL ICER Unavailable +[phone] Shun Schuster MD Unavailable Portia [email or web address] Jaspal Pettit MD Unavailable Joelle Grande MD, MS Unavailable Danuta Patel MD Unavailable [phone] Encounter Details Date Type Department Care Team (Late st Contact Info) Description 02/10/2019 Procedure Pass [facility] Endoscopy Department [address] [place] [address] Social History Tobacco Use Types Packs/Day Years [...] Upcoming Encounters Date Type Department Care Team ([facility] st Contact Info) Description 07/02/2024 Procedure Pass [facility] Imaging Department, [facility] [place] [facility], Floor [address]1 [place] [address] 07/02/2024 Procedure Pass [facility] Imaging Department, [facility] [place] [facility], Floor [address] [place] [address] 07/25/2025 1:40 PM EDT Appointment [facility] Imaging Department, [facility] [place] [address] [facility], Floor [address]1 [place] [address] Danuta Patel MD [address] [place] [address] Agnes@[email or web address] 07/29/2025 10:30 AM EDT [facility], [address], 6th [place] [address] Danuta Patel MD [address] [place] [address] Agnes@[email or web address] documented as of this encounter Visit [...] documented as of this encounter Care Teams Rental Sales Associate Relationship Specialty Start Date End Date Dontae, Chiara Crandall MD [address] [place] [address] Drive [address] [place] [phone] PCP - General Internal Medicine 07/25/18 Joelle Grande MD, MS [address] [place] [address] JOSÉ MANUEL@[facility] Surgeon Surgical Oncology 08/15/18 Oly Kraus MD, MPH [address] [place] [address] Lolis@[facility] Primary Oncologist Radiation Oncology 08/15/18 Valerie Conti MD [address] [place] [address] [email or web address] Primary Oncologist Medical Oncology 08/15/18 04/11/20 Daryn Donohue MD [address] [place] [address] Referring Physician Urology 08/19/18 Savanna Banegas [address] [place] [address] NESTOR@[facility] Computer Trainer 08/19/18 Sindy Isaacs, [address] [address] [email or web address]@[email or web address] Gas Appliance Repairer Oncology 09/16/18 07/25/19 Cris Aburto, [address] [address] [email or web address] Gas Appliance Repairer 12/26/18 Arlin Cherry, [address] [address] Maykel@[facility] Gas Appliance Repairer Oncology 07/26/19 Shun Schuster MD Rohan@[email or web address] Primary Oncologist Medical Oncology 04/12/20 06/21/21 Jaspal Ordoñez MD [address] [place] [address] [email or web address] Palliative Care 12/22/20 Joelle Grande MD, MS [address] [place] [address] JOSÉ MANUEL@[facility] Surgical Oncology 03/07/21 Danuta Patel MD [address] [place] [address] Agnes@[facility] Medical Oncology 06/22/21 documented as of this encounter Additional Source Comments The information contained in this document represents components of the legal health record. It is not the complete legal health record.[facility]
--- OUTSIDE RECORDS SUMMARY | 2025-07-09 15:56 | XMS_ITS | Encounter Summary ---
Author Organization [facility] Address [address] [place] [address] Phone Care Team Providers Care Driving Instructor Name Role Phone Chiara Diggs MD Primary Care Provider [phone] Joelle Grande MD, MS Unavailable Oly Kraus MD, MPH Unavailable + [phone] Valerie Conti MD Unavailable [phone] Daryn Donohue MD Unavailable Savanna Banegas Unavailable Sindy Isaacs HOT HEAD MACHINE OPERATOR Unavailable [phone] Cris Aburto HOT HEAD MACHINE OPERATOR Unavailable [phone] Arlin Cherry HOT HEAD MACHINE OPERATOR Unavailable [phone] Shun Schuster MD Unavailable Portia [email or web address] Jaspal Pettit MD Unavailable Joelle Grande MD, MS Unavailable Danuta Patel MD Unavailable [phone] Encounter Details Date Type Department Care Team (Late st Contact Info) Description 08/15/2018 Procedure Pass [facility] [address] [place] [address] Social History Tobacco Use Types Packs/Day Years Used Date Smoking Tobacco: Former Cigarettes 0.3 2 1 [phone] Smokeless Tobacco: Never Alcohol Use Standard Drinks/Week [...] Contact Info) Description 07/02/[address] [facility] Imaging Department, [facility] [place] [address] [facility], Floor [address]1 [place] [address] 07/02/[address] [facility] Imaging Department, [facility] [place] [address] [facility], Floor [address]1 [place] [address] 07/25/2025 1:[address] [facility] Imaging Department, [facility] [place] [address] [facility], [address]1 [place] [address] Danuta Patel MD [address] [place] [address] Agnes@[facility] 07/29/2025 10:30 AM EDT [facility], [address], 6th [place] [address] Danuta Patel MD [address] [place] [address] Agnes@[facility] documented as of this encounter [...] documented as of this encounter Care Teams Driving Instructor Relationship Specialty Start Date End Date Dontae, Chiara Crandall MD [address] [place] [address] [address] [place] [phone] PCP - General Internal Medicine 07/25/18 Joelle Grande MD, MS [address] [place] [address] JOSÉ MANUEL@[facility] Surgeon Surgical Oncology 08/15/18 Oly Kraus MD, MPH [address] [place] [address] Lolis@[email or web address] Primary Oncologist Radiation Oncology 08/15/18 Valerie Conti MD [address] [place] [address] Mariusz@[email or web address] Primary Oncologist Medical Oncology 08/15/18 04/11/20 Daryn Donohue MD [address] [place] [address] Referring Physician Urology 08/19/18 Savanna Banegas [address] [place] [address] NESTOR@[facility] Knockout Worker 08/19/18 Sindy Isaacs, [address] [address] [email or web address]@[facility] Parts Picker Oncology 09/16/18 07/25/19 Cris Aburto, [address] [address] [email or web address] Parts Picker 12/26/18 Arlin Cherry, [address] [address] Maykel@[facility] Parts Picker Oncology 07/26/19 Shun Schuster MD Rohan@[facility] Primary Oncologist Medical Oncology 04/12/20 06/21/21 Jaspal Ordoñez MD [address] [place] [address] [email or web address] Palliative Care 12/22/20 Joelle Grande MD, MS [address] [place] [address] JOSÉ MANUEL@[facility] Surgical Oncology 03/07/21 Danuta Patel MD [address] [place] [address] Agnes@[email or web address] Medical Oncology 06/22/21 documented as of this encounter Additional Source Comments The information contained in this document represents components of the legal health record. It is not the complete legal health record.[facility]
--- OUTSIDE RECORDS SUMMARY | 2025-07-09 15:56 | XMS_ITS | Encounter Summary ---
Author Organization [facility] Address [address] [place] [address] Phone Care Team Providers Care Electrical Engineer Mep Name Role Phone Chiara Diggs MD Primary Care Provider [phone] Joelle Grande MD, MS Unavailable Oly Kraus MD, MPH Unavailable + [phone] Valerie Conti MD Unavailable [phone] Daryn Donohue MD Unavailable Savanna Banegas Unavailable Sindy Isaacs CORRESPONDENCE RENEW CLERK Unavailable [phone] Cris Aburto CORRESPONDENCE RENEW CLERK Unavailable [phone] Arlin Cherry CORRESPONDENCE RENEW CLERK Unavailable [phone] Shun Schuster MD Unavailable Portia [email or web address] Jaspal Pettit MD Unavailable Joelle Grande MD, MS Unavailable Danuta Patel MD Unavailable [phone] Encounter Details Date Type Department Care Team (Late st Contact Info) Description 02/19/2019 Procedure Pass [facility] Endoscopy Department [address] [place] [address] Social History Tobacco Use Types Packs/Day Years [...] Upcoming Encounters Date Type Department Care Team ([facility] st Contact Info) Description 07/02/2024 Procedure Pass [facility] Imaging Department, [facility] [place] [address] [facility], Floor L1 [place] [address] 07/02/2024 Procedure Pass [facility] Imaging Department, [facility] [place] [address] [facility], Floor [address]1 [place] [address] 07/25/2025 1:40 PM EDT Appointment [facility] Imaging Department, [facility] [place] [address] [facility], Floor L1 [place] [address] Danuta Patel MD [address] [place] [address] Agnes@[email or web address] 07/29/2025 10:30 AM EDT Tele[facility], [address], 6th [place] [address] Danuta Patel MD [address] [place] [address] Agnes@[email or web address] [...] documented as of this encounter Care Teams Electrical Engineer Mep Relationship Specialty Start Date End Date Dontae, Chiara Crandall MD [address] [place] [address] Drive [address] [place] [phone] PCP - General Internal Medicine 07/25/18 Joelle Grande MD, MS [address] [place] [address] JOSÉ MANUEL@[email or web address] Surgeon Surgical Oncology 08/15/18 Oly Kraus MD, MPH [address] [place] [address] Lolis@[facility] Primary Oncologist Radiation Oncology 08/15/18 Valerie Conti MD [address] [place] [address] [email or web address] Primary Oncologist Medical Oncology 08/15/18 04/11/20 Daryn Donohue MD [address] [place] [address] Referring Physician Urology 08/19/18 Savanna Banegas [address] [place] [address] NESTOR@[facility] Sliver Lap Machine Tender 08/19/18 Sindy Isaacs, [address] [address] [email or web address]@[facility] Well Drill Operator Oncology 09/16/18 07/25/19 Cris Aburto, [address] [address] [email or web address] Well Drill Operator 12/26/18 Arlin Cherry, [address] [address] Maykel@[facility] Well Drill Operator Oncology 07/26/19 Shun Schuster MD Rohan@[facility] Primary Oncologist Medical Oncology 04/12/20 06/21/21 Jaspal Ordoñez MD [address] [place] [address] [email or web address] Palliative Care 12/22/20 Joelle Grande MD, MS [address] [place] [address] JOSÉ MANUEL@[email or web address] Surgical Oncology 03/07/21 Danuta Patel MD [address] [place] [address] Agnes@[facility] Medical Oncology 06/22/21 documented as of this encounter Additional Source Comments The information contained in this document represents components of the legal health record. It is not the complete legal health record.[facility]
--- OUTSIDE RECORDS SUMMARY | 2025-07-09 15:56 | XMS_ITS | Encounter Summary ---
Author Organization [facility] Address [address] [place] [address] Phone Care Team Providers Care Veterinarian Name Role Phone Chiara Diggs MD Primary Care Provider [phone] Joelle Grande MD, MS Unavailable Oly Kraus MD, MPH Unavailable + [phone] Valerie Conti MD Unavailable [phone] Daryn Donohue MD Unavailable Savanna Banegas Unavailable Sindy Isaacs CHIP MUCKER Unavailable [phone] Cris Aburto CHIP MUCKER Unavailable +[phone] Arlin Cherry CHIP MUCKER Unavailable [phone] Shun Schuster MD Unavailable Portia [email or web address] Jaspal Pettit MD Unavailable Joelle Grande MD, MS Unavailable Danuta Patel MD Unavailable +[phone] Encounter Details Date Type Department Care Team (Late st Contact Info) Description 02/21/2019 Procedure Pass [facility] [address] [place] [address] Social History Tobacco Use Types Packs/Day Years [...] st Contact Info) Description 07/02/2024 Procedure Pass [facility] Imaging Department, [facility] [place] [address] [facility], Floor [address]1 [place] [address] 07/02/2024 Procedure Pass [facility] Imaging Department, [facility] [place] [address] [facility], Floor [address]1 [place] [address] 07/25/2025 1:40 PM EDT Appointment [facility] Imaging Department, [facility] [place] [address] [facility], Floor [address]1 [place] [address] Danuta Patel MD [address] [place] [address] Agnes@[facility] 07/29/2025 10:30 AM EDT Telemedicine [facility], [address], 6th [place] [address] Danuta Patel MD [address] [place] [address] Agnes@[facility] documented as of this encounter Visit Diagnoses [...] documented as of this encounter Care Teams Veterinarian Relationship Specialty Start Date End Date Chiara Diggs MD [address] [place] [address] [address] [place] [phone] PCP - General Internal Medicine 07/25/18 Joelle Grande MD, MS [address] [place] [address] JOSÉ MANUEL@[facility] Surgeon Surgical Oncology 08/15/18 Oly Kraus MD, MPH [address] [place] [address] Lolis@[facility] Primary Oncologist Radiation Oncology 08/15/18 Valerie Conti MD [address] [place] [address] [email or web address] Primary Oncologist Medical Oncology 08/15/18 04/11/20 Daryn Donohue MD [address] [place] [address] Referring Physician Urology 08/19/18 Savanna Banegas [address] [place] [address] NESTOR@[facility] Admin Dir 08/19/18 Sindy Isaacs, [address] [address] [email or web address]@[email or web address] Terrazzo Installer Oncology 09/16/18 07/25/19 Cris Aburto, [address] [address] [email or web address] Terrazzo Installer 12/26/18 Arlin Cherry, [address] [address] ArlinBettyJo Ann@[facility] Terrazzo Installer Oncology 07/26/19 Shun Schuster MD Rohan@[email or web address] Primary Oncologist Medical Oncology 04/12/20 06/21/21 Jaspal Ordoñez MD [address] [place] [address] [email or web address] Palliative Care 12/22/20 Joelle Grande MD, MS [address] [place] [address] JOSÉ MANUEL@[facility] Surgical Oncology 03/07/21 Danuta Patel MD [address] [place] [address] Agnes@[facility] Medical Oncology 06/22/21 documented as of this encounter Additional Source Comments The information contained in this document represents components of the legal health record. It is not the complete legal health record.[facility]
--- OUTSIDE RECORDS SUMMARY | 2025-07-09 15:56 | XMS_ITS | Encounter Summary ---
Author Organization [facility] Address [address] [place] [address] Phone Care Team Providers Care Stage Driver Name Role Phone Chiara Diggs MD Primary Care Provider [phone] Joelle Grande MD, MS Unavailable Oly Kraus MD, MPH Unavailable + [phone] Valerie Conti MD Unavailable [phone] Daryn Donohue MD Unavailable Saavnna Banegas Unavailable Sindy Isaacs CAKE TESTER Unavailable [phone] Cris Aburto CAKE TESTER Unavailable +[phone] Arlin Cherry CAKE TESTER Unavailable +[phone] Shun Schuster MD Unavailable Portia [email or web address] Jaspal Pettit MD Unavailable Joelle Grande MD, MS Unavailable Danuta Patel MD Unavailable +[phone] Encounter Details Date Type Department Care Team (Late st Contact Info) Description 03/05/2019 Transcribe Orders [facility] Echocardiography [address] [place] [address] Chiara Diggs MD [address] [facility] [address] [place] [phone] Social History Tobacco Use Types Packs/Day [...] Description 07/02/2024 Procedure Pass [facility] Imaging Department, [facility], [place] [address] [facility], Floor [address]1 [place] [address] 07/02/2024 Procedure Pass [facility] Imaging Department, [facility] [place] [address] [facility], Floor [address]1 [place] [address] 07/25/2025 1:40 PM EDT Appointment [facility] Imaging Department, [facility] [place] [address] [facility], Floor [address]1 [place] [address] Danuta Patel MD [address] [place] [address] Agnes@[facility] 07/29/2025 10:30 AM EDT [facility], [address], 6th [place] [address] Danuta Patel MD [address] [place] [address] Agnes@[facility] documented as of this encounter [...] documented as of this encounter Care Teams Stage Driver Relationship Specialty Start Date End Date Po, Chiara Crandall MD [address] [place] [address] Drive [address] [place] [phone] PCP - General Internal Medicine 07/25/18 Joelle Grande MD, MS [address] [place] [address] JOSÉ MANUEL@[facility] Surgeon Surgical Oncology 08/15/18 Oly Kraus MD, MPH [address] [place] [address] Lolis@[facility] Primary Oncologist Radiation Oncology 08/15/18 Valerie Conti MD [address] [place] [address] Mariusz@[facility] Primary Oncologist Medical Oncology 08/15/18 04/11/20 Daryn Donohue MD [address] [place] [address] Referring Physician Urology 08/19/18 Savanna Banegas [address] [place] [address] NESTOR@[facility] Statistical Machine Servicer 08/19/18 Sindy Isaacs, [address] [address] Gregorio@[facility] Business Office Director Oncology 09/16/18 07/25/19 Cris Aburto, [address] [address] delvin@[facility] Business Office Director 12/26/18 Arlin Cherry, [address] [address] Maykel@[facility] Business Office Director Oncology 07/26/19 Shun Schuster MD Rohan@[facility] Primary Oncologist Medical Oncology 04/12/20 06/21/21 Jaspal Ordoñez MD [address] [place] [address] [email or web address] Palliative Care 12/22/20 Joelle Grande MD, MS [address] [place] [address] JOSÉ MANUEL@[facility] Surgical Oncology 03/07/21 Danuta Patel MD [address] [place] [address] Agnes@[facility] Medical Oncology 06/22/21 documented as of this encounter Additional Source Comments The information contained in this document represents components of the legal health record. It is not the complete legal health record.[facility]
--- OUTSIDE RECORDS SUMMARY | 2025-07-09 15:56 | XMS_ITS | Encounter Summary ---
Author Organization [facility] Address [address] [place] [address] Phone Care Team Providers Care Para Operator Name Role Phone Chiara Diggs MD Primary Care Provider [phone] Joelle Grande MD, MS Unavailable Oly Kraus MD, MPH Unavailable + [phone] Valerie Conti MD Unavailable [phone] Daryn Donohue MD Unavailable [phone] Savanna Banegas Unavailable Sindy Isaacs EPIC KALEIDOSCOPE ANALYST Unavailable [phone] Cris Aburto EPIC KALEIDOSCOPE ANALYST Unavailable +[phone] Arlin Cherry EPIC KALEIDOSCOPE ANALYST Unavailable +[phone] Shun Schuster MD Unavailable Portia [email or web address] Jaspal Pettit MD Unavailable Joelle Grande MD, MS Unavailable Danuta Patel MD Unavailable [phone] Encounter Details Date Type Department Care Team (Late st Contact Info) Description 11/26/2018 Procedure Pass [facility] Periop [address] [place] [address] Social History Tobacco Use Types Packs/Day Years [...] st Contact Info) Description 07/02/2024 Procedure Pass [facility] Imaging Department, [facility], [place] [address] [facility], Floor [address]1 [place] [address] 07/02/2024 Procedure Pass [facility] Imaging [facility], [facility] [place] [address] [facility], Floor [address]1 [place] [address] 07/25/2025 1:40 PM EDT Appointment [facility] Imaging Department, [facility] [place] [address] [facility], Floor [address] [place] [address] Danuta Patel MD [address] [place] [address] Agnes@[facility] 07/29/2025 10:30 AM EDT [facility], [address], 6th [place] [address] Danuta Patel MD [address] [place] [address] Agnes@[facility] documented as [...] documented as of this encounter Care Teams Para Operator Relationship Specialty Start Date End Date Dontae, Chiara Crandall MD [address] [place] [address] Drive [address] [place] [phone] PCP - General Internal Medicine 07/25/18 Joelle Grande MD, MS [address] [place] [address] JOSÉ MANUEL@[facility] Surgeon Surgical Oncology 08/15/18 lOy Kraus MD, MPH [address] [place] [phone] Lolis@[facility] Primary Oncologist Radiation Oncology 08/15/18 Valerie Conti MD [address] [place] [address] Mariusz@[email or web address] Primary Oncologist Medical Oncology 08/15/18 04/11/20 Daryn Donohue MD [address] [place] [address] Referring Physician Urology 08/19/18 Savanna Banegas [address] [place] [address] NESTOR@[facility] Stock Hanger 08/19/18 Sindy Isaacs, [address] [address] [email or web address]@[facility] Satellite Instruction Facilitator Oncology 09/16/18 07/25/19 Cris Aburto, [address] [address] [email or web address] Satellite Instruction Facilitator 12/26/18 Arlin Cherry, [address] [address] Maykel@[facility] Satellite Instruction Facilitator Oncology 07/26/19 Shun Schuster MD Rohan@[email or web address] Primary Oncologist Medical Oncology 04/12/20 06/21/21 Jaspal Ordoñez MD [address] [place] [address] [email or web address] Palliative Care 12/22/20 Joelle Grande MD, MS [address] [place] [address] JOSÉ MANUEL@[facility] Surgical Oncology 03/07/21 Danuta Patel MD [address] [place] [address] Agnes@[facility] Medical Oncology 06/22/21 documented as of this encounter Additional Source Comments The information contained in this document represents components of the legal health record. It is not the complete legal health record.[facility]
--- OUTSIDE RECORDS SUMMARY | 2025-07-09 15:56 | XMS_ITS | Encounter Summary ---
Author Organization [facility] Address [address] [place] [address] Phone Care Team Providers Care Tool Supervisor Name Role Phone Chiara Diggs MD Primary Care Provider [phone] Joelle Grande MD, MS Unavailable Oly Kraus MD, MPH Unavailable + [phone] Valerie Conti MD Unavailable [phone] Daryn Donohue MD Unavailable Savanna Banegas Unavailable Sindy Isaacs RN CONCURRENT REVIEW Unavailable [phone] Cris Aburto RN CONCURRENT REVIEW Unavailable +[phone] Arlin Cherry RN CONCURRENT REVIEW Unavailable +[phone] Shun Schuster MD Unavailable Portia [email or web address] Jaspal Pettit MD Unavailable Joelle Grande MD, MS Unavailable Danuta Patel MD Unavailable +[phone] Encounter Details Date Type Department Care Team (Late st Contact Info) Description 08/15/2018 Procedure Pass [facility] [address] [place] [address] Social History Tobacco Use Types Packs/Day Years Used Date Smoking Tobacco: Former Cigarettes 0.3 2 1 [phone] - 5141 Smokeless Tobacco: Never Alcohol Use Standard Drinks/Week [...] Contact Info) Description 07/02/2024 Procedure Pass [facility] Imaging Department, [facility] [place] [address] [facility], Floor [address]1 [place] [address] 07/02/2024 Procedure Pass [facility] Imaging Department, [facility] [place] [address] [facility], [address]1 [place] [address] 07/25/2025 1:40 PM EDT Appointment [facility] Imaging Department, [facility] [place] [address] [facility], [address]1 [place] [address] Danuta Patel MD [address] [place] [address] Agnes@[facility] 07/29/2025 10:30 AM EDT [facility], [address], 6th [place] [address] Danuta Patel MD [address] [place] [address] Agnes@[facility] documented as of this encounter Visit Diagnoses Not on filedocumented in this encounter Additional Health Concerns 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 02/28/2019 12/20/2022 1:[address] CoV-Presumed Comment:12/12: Symptom onset- fatigue, ST, cough, SOB 12/13: positive PCR outside lab (needs to be uploaded to [facility])- Yohana Noble RN 12/12/2021 12/13/2021 01/01/2022 1:[address] documented as of this encounter Care Teams Tool Supervisor Relationship Specialty Start Date End Date Dontae, Chiara Crandall MD [address] [place] [address] Drive [address] [place] [phone] PCP - General Internal Medicine 07/25/18 Joelle Grande MD, MS [address] [place] [address] JOSÉ MANUEL@[facility] Surgeon Surgical Oncology 08/15/18 Oly Kraus MD, MPH [address] [place] [phone] Lolis@[facility] Primary Oncologist Radiation Oncology 08/15/18 Valerie Conti MD [address] [place] [address] Mariusz@[facility] Primary Oncologist Medical Oncology 08/15/18 04/11/20 Daryn Donohue MD [address] [place] [address] Referring Physician Urology 08/19/18 Savanna Banegas [address] [place] [address] NESTOR@[email or web address] Research Lab Assistant 08/19/18 Sindy Isaacs, [address] [address] [email or web address]@[facility] Waterworks Employee Oncology 09/16/18 07/25/19 Cris Aburto, [address] [address] delvin@[facility] Waterworks Employee 12/26/18 Arlin Cherry, [address] [address] Maykel@[facility] Waterworks Employee Oncology 07/26/19 Shun Schuster MD Rohan@[email or web address] Primary Oncologist Medical Oncology 04/12/20 06/21/21 Jaspal Ordoñez MD [address] [place] [address] [email or web address] Palliative Care 12/22/20 Joelle Grande MD, MS [address] [place] [address] JOSÉ MANUEL@[facility] Surgical Oncology 03/07/21 Danuta Patel MD [address] [place] [address] Agnes@[facility] Medical Oncology 06/22/21 documented as of this encounter Additional Source Comments The information contained in this document represents components of the legal health record. It is not the complete legal health record.[facility]
--- OUTSIDE RECORDS SUMMARY | 2025-07-09 15:56 | XMS_ITS | Encounter Summary ---
Author Organization [facility] Address [address] [place] [address] Phone Care Team Providers Care Grips Name Role Phone Chiara Diggs MD Primary Care Provider [phone] Joelle Grande MD, MS Unavailable Oly Kraus MD, MPH Unavailable + [phone] Valerie Conti MD Unavailable [phone] Daryn Donohue MD Unavailable Savanna Banegas Unavailable Sindy Isaacs RADIO CONTROL CRANE OPERATOR Unavailable [phone] Cris Aburto RADIO CONTROL CRANE OPERATOR Unavailable +[phone] Arlin Cherry RADIO CONTROL CRANE OPERATOR Unavailable [phone] Shun Schuster MD Unavailable Portia [email or web address] Jaspal Pettit MD Unavailable Joelle Grande MD, MS Unavailable Danuta Patel MD Unavailable [phone] Encounter Details Date Type Department Care Team (Late st Contact Info) Description 02/20/2019 Procedure Pass [facility] Endoscopy Department [address] [place] [address] Social History Tobacco Use Types Packs/Day Years [...] Upcoming Encounters Date Type Department Care Team ([facility] st Contact Info) Description 07/02/2024 Procedure Pass [facility] Imaging Department, [facility], [place] [address] [facility], Floor [address]1 [place] [address] 07/02/2024 Procedure Pass [facility] Imaging Department, [facility] [place] [address] [facility], [address] [place] [address] 07/25/2025 1:40 PM EDT Appointment [facility] Imaging Department, [facility] [place] [address] [facility], [address] [place] [address] Danuta Patel MD [address] [place] [address] Agnes@[facility] 07/29/2025 10:30 AM EDT [facility], [address], 6th [place] [address] Danuta Patel MD [address] [place] [address] Agnes@[facility] documented as of this encounter [...] documented as of this encounter Care Teams Grips Relationship Specialty Start Date End Date Dontae, Chiara Crandall MD [address] [place] [address] Drive [address] [place] [phone] PCP - General Internal Medicine 07/25/18 Joelle Grande MD, MS [address] [place] [address] JOSÉ MANUEL@[facility] Surgeon Surgical Oncology 08/15/18 Oly Kraus MD, MPH [address] [place] [phone] Lolis@[facility] Primary Oncologist Radiation Oncology 08/15/18 Valerie Conti MD [address] [place] [address] Mariusz@[email or web address] Primary Oncologist Medical Oncology 08/15/18 04/11/20 Daryn Donohue MD [address] [place] [address] Referring Physician Urology 08/19/18 Savanna Banegas [address] [place] [address] NESTOR@[facility] Mold Puller 08/19/18 Sindy Isaacs, [address] [address] [email or web address]@[facility] Percussion Instrument Tuner Oncology 09/16/18 07/25/19 Cris Aburto, [address] [address] delvin@[facility] Percussion Instrument Tuner 12/26/18 Arlin Cherry, [address] [address] Maykel@[facility] Percussion Instrument Tuner Oncology 07/26/19 Shun Schuster MD Rohan@[facility] Primary Oncologist Medical Oncology 04/12/20 06/21/21 Jaspal Ordoñez MD [address] [place] [address] [email or web address] Palliative Care 12/22/20 Joelle Grande MD, MS [address] [place] [address] JOSÉ MANUEL@[facility] Surgical Oncology 03/07/21 Danuta Patel MD [address] [place] [phone] Agnes@[facility] Medical Oncology 06/22/21 documented as of this encounter Additional Source Comments The information contained in this document represents components of the legal health record. It is not the complete legal health record.[facility]
--- OUTSIDE RECORDS SUMMARY | 2025-07-09 15:56 | XMS_ITS | Encounter Summary ---
Author Organization [facility] Address [address] [place] [address] Phone Care Team Providers Care Sheet Pile Driver Operator Name Role Phone Chiara Diggs MD Primary Care Provider [phone] Joelle Grande MD, MS Unavailable Oly Kraus MD, MPH Unavailable + [phone] Valerie Conti MD Unavailable +[phone] Daryn Donohue MD Unavailable Savanna Banegas Unavailable Sindy Isaacs SCIENCE PROFESSOR Unavailable [phone] Cris Aburto SCIENCE PROFESSOR Unavailable +[phone] Arlin Cherry SCIENCE PROFESSOR Unavailable [phone] Shun Schuster MD Unavailable Portia [email or web address] Jaspal Pettit MD Unavailable Joelle Grande MD, MS Unavailable Danuta Patel MD Unavailable [phone] Encounter Details Date Type Department Care Team (Late st Contact Info) Description 08/15/2018 Procedure Pass [facility] [address] [place] [address] Social History Tobacco Use Types Packs/Day Years Used Date Smoking Tobacco: Former Cigarettes 0.3 2 1 [phone] - [phone] Smokeless Tobacco: Never Alcohol Use Standard Drinks/Week [...] Contact Info) Description 07/02/2024 Procedure Pass [facility] Imaging Department, [facility], [place] [address] [facility], Floor [address]1 [place] [address] 07/02/2024 Procedure Pass [facility] Imaging Department, [facility] [place] [address] [facility], [address] [place] [address] 07/25/2025 1:40 PM EDT Appointment [facility] Imaging Department, [facility] [place] [address] [facility], [address] [place] [address] Danuta Patel MD [address] [place] [address] Agnes@[facility] 07/29/2025 10:30 AM EDT [facility], [address], 6th [place] [address] Danuta Patel MD [address] [place] [address] Agnes@[facility] documented as of this encounter Visit Diagnoses Not on filedocumented in this encounter Additional Health Concerns 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 02/28/2019 12/20/2022 1:[address] CoV-Presumed Comment:12/12: Symptom onset- fatigue, ST, cough, SOB 12/13: positive PCR outside lab (needs [facility] be uploaded to [facility])- Yohana Noble RN 12/12/2021 12/13/2021 01/01/2022 1:[address] documented as of this encounter Care Teams Sheet Pile Driver Operator Relationship Specialty Start Date End Date Dontae, Chiara Crandall MD [address] [place] [address] [address] [place] [phone] PCP - General Internal Medicine 07/25/18 Joelle Grande MD, MS [address] [place] [address] JOSÉ MANUEL@[facility] Surgeon Surgical Oncology 08/15/18 Oly Kraus MD, MPH [address] [place] [address] Lolis@[facility] Primary Oncologist Radiation Oncology 08/15/18 Valerie Conti MD [address] [place] [address] Mariusz@[facility] Primary Oncologist Medical Oncology 08/15/18 04/11/20 Daryn Donohue MD [address] [place] [address] Referring Physician Urology 08/19/18 Savanna Banegas [address] [place] [address] NESTOR@[facility] Streets And Buildings Decorator 08/19/18 Sindy Isaacs, [address] [address] [email or web address]@[facility] Credit Associate Oncology 09/16/18 07/25/19 Cris Aburto, [address] [address] delvin@[facility] Credit Associate 12/26/18 Arlin Cherry, [address] [address] Maykel@[facility] Credit Associate Oncology 07/26/19 Shun Schuster MD Rohan@[email or web address] Primary Oncologist Medical Oncology 04/12/20 06/21/21 Jaspal Ordoñez MD [address] [place] [address] [email or web address] Palliative Care 12/22/20 Joelle Grande MD, MS [address] [place] [address] JOSÉ MANUEL@[facility] Surgical Oncology 03/07/21 Danuta Patel MD [address] [place] [address] Agnes@[facility] Medical Oncology 06/22/21 documented as of this encounter Additional Source Comments The information contained in this document represents components of the legal health record. It is not the complete legal health record.[facility]
--- OUTSIDE RECORDS SUMMARY | 2025-07-09 15:56 | XMS_ITS | Encounter Summary ---
Author Organization [facility] Address [address] [place] [id number] Phone Care Team Providers Care Glass Bulb Machine Adjuster Name Role Phone Chiara Diggs MD Primary Care Provider [phone] Joelle Grande MD, MS Unavailable Oly Kraus MD, MPH Unavailable + [phone] Valerie Conti MD Unavailable [phone] Daryn Donohue MD Unavailable Savanna Banegas Unavailable Sindy Isaacs BIOMATHEMATICIAN Unavailable [phone] Cris Aburto BIOMATHEMATICIAN Unavailable [phone] Arlin Cherry BIOMATHEMATICIAN Unavailable [phone] Shun Schuster MD Unavailable Portia [email or web address] Jaspal Pettit MD Unavailable Joelle Grande MD, MS Unavailable Danuta Patel MD Unavailable [phone] Encounter Details Date Type Department Care Team (Late st Contact Info) Description 08/15/2018 Procedure Pass [facility] [address] [place] [address] Social History Tobacco Use Types Packs/Day Years Used Date Smoking Tobacco: Former Cigarettes 0.3 2 1 [phone] Smokeless Tobacco: Never Alcohol Use Standard Drinks/Week [...] Info) Description 07/02/2024 Procedure Pass [facility], [facility], [place] [address] [facility], Floor [address] [place] [address] 07/02/2024 Procedure Pass [facility], [facility] [place] [address] [facility], Floor [address] [place] [address] 07/25/2025 1:40 PM EDT Appointment [facility], [facility] [place] [address] [facility], Floor [address] [place] [address] Danuta Patel MD [address] [place] [id number] [email or web address] 07/29/2025 10:30 AM EDT [facility], [address], [address] [place] [address] Danuta Patel MD [address] [place] [id number] [email or web address] documented as of this encounter Visit Diagnoses Not on filedocumented in this encounter Additional Health Concerns 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 02/28/2019 12/20/2022 1:[address] CoV-Presumed Comment:12/12: Symptom onset- fatigue, ST, cough, SOB 12/13: positive PCR outside lab (needs to be uploaded to [facility])- Yohana Noble RN 12/12/2021 12/13/2021 01/01/2022 1:[address] documented as of this encounter Care Teams Glass Bulb Machine Adjuster Relationship Specialty Start Date End Date Dontae, Chiara Crandall MD [address] [place] [address] [address] [place] [phone] PCP - General Internal Medicine 07/25/18 Joelle Grande MD, MS [address] [place] [id number] [email or web address] Surgeon Surgical Oncology 08/15/18 Oly Kraus MD, MPH [address] [place] [id number] [email or web address] Primary Oncologist Radiation Oncology 08/15/18 Valerie Conti MD [address] [place] [id number] [email or web address] Primary Oncologist Medical Oncology 08/15/18 04/11/20 Daryn Donohue MD [address] [place] [phone] Referring Physician Urology 08/19/18 Savanna Banegas [address] [place] [id number] [email or web address] Brim [email or web address] 08/19/18 Sindy Isaacs, [address] [address] [email or web address] Solution Strategist Oncology 09/16/18 07/25/19 Cris Aburto, [address] [phone] [email or web address] 12/26/18 Arlin Cherry, [address] [phone] [email or web address] Solution [email or web address] Oncology 07/26/19 Shun Schuster MD [email or web address] Primary Oncologist Medical Oncology 04/12/20 06/21/21 Jaspal Ordoñez MD [address] [place] [phone] [email or web address] [email or web address] Care 12/22/20 Joelle Grande MD, MS [address] [place] [id number] JOSÉ [email or web address] Surgical [email or web address] 03/07/21 Danuta Patel MD [address] [place] [phone] [email or web address] Medical Oncology 06/22/21 documented as of this encounter Additional Source Comments The information contained in this document represents components of the legal health record. It is not the complete legal health record.[facility]
== END 2025-07-09 16:44 | disposition home or self-care (01) ==
LOC: HO.HMCH 14:44
PROVIDERS: PCP Internal Medicine; Visit Provider Internal Medicine
DX: K21.9 Gastro-esophageal reflux disease without esophagitis (principal); C78.6 Secondary malignant neoplasm of retroperitoneum and peritoneum; M54.50 Low back pain, unspecified; G89.29 Other chronic pain; F33.9 Major depressive disorder, recurrent, unspecified; R73.01 Impaired fasting glucose; R51.9 Headache, unspecified; Z23 Encounter for immunization

== ENCOUNTER → 2025-07-09 14:43 | Outpatient (BNVA) | payer BC, MEDICARE, SELFPAY | PROVIDERS: PCP Internal Medicine; Visit Provider Internal Medicine | DX: K21.9 Gastro-esophageal reflux disease without esophagitis (principal); G47.00 Insomnia, unspecified; C78.6 Secondary malignant neoplasm of retroperitoneum and peritoneum; M54.50 Low back pain, unspecified; F33.9 Major depressive disorder, recurrent, unspecified; R73.01 Impaired fasting glucose; R51.9 Headache, unspecified; G89.29 Other chronic pain; I48.91 Unspecified atrial fibrillation; D64.9 Anemia, unspecified; R73.03 Prediabetes; K46.9 Unspecified abdominal hernia without obstruction or gangrene; Z23 Encounter for immunization; R63.4 Abnormal weight loss; R30.0 Dysuria | CPT/HCPCS: 90471; 90714; 96127 ==

== ENCOUNTER 2025-08-10 11:42 | Observation (INO) | payer BC, MEDICARE, SELFPAY ==
--- NOTE | ~2025-08-10 | CT_ITS ---
EXAMINATION: CT ABDOMEN AND PELVIS WITH CONTRAST CLINICAL INFORMATION: Upper abdominal pain, nausea, vomiting, weight loss COMPARISON: 09/13/2022 TECHNIQUE: Multidetector volumetric images were obtained from the superior aspect of the liver through the pubic symphysis following administration 85 mL of Omnipaque 350 intravenous contrast. Sagittal and coronal reformatted images were obtained on the technologist's workstation. Oral contrast: No This CT examination was performed using dose optimization techniques as appropriate, variously including the following: *Automated exposure control *Adjustment of mA and/or kV according to patient size (this includes techniques or standardized protocols for targeted exams where dose is matched to indication/reason for exam; i.e. extremities or head) *Use of iterative reconstruction technique FINDINGS: LUNG BASES: The visualized lung bases are unremarkable. LIVER, GALLBLADDER, AND BILIARY TREE: Diffuse low attenuation is noted throughout the liver The gallbladder is unremarkable with no evidence of radiopaque gallstones, gallbladder wall thickening, or obvious pericholecystic inflammatory changes. PANCREAS: There are coarse calcifications in the pancreas. There is generalized atrophy. There is dilation of the pancreatic duct. SPLEEN: Unremarkable. ADRENAL GLANDS: Right adrenal gland is not visualized. The left gland is unremarkable. KIDNEYS AND URETERS: Right kidney is surgically absent. Left kidney and ureter are unremarkable. BLADDER: Unremarkable. GASTROINTESTINAL TRACT: The region of the pylorus/gastric antrum appears thick walled There is narrowing between the aorta and SMA where the duodenum crosses between the 2. Right hemicolectomy has been performed. There is subjectively mild thickening of the descending and sigmoid colon, and rectum. Right upper quadrant ileal colonic anastomosis is again identified. There is no proximal obstruction. There is trace free fluid in the abdomen. History vessels are mildly prominent. ABDOMINAL WALL: No significant hernia is appreciated. LYMPH NODES: Normal. VASCULAR: Moderate to severe vascular calcifications are present in the aorta and common iliac arteries PELVIC VISCERA: Right ovary is nonvisualized. Left ovary and uterus are unremarkable. There is mild prominence of vascularity along the left aspect of the uterus and a mildly dilated left ovarian vein. OSSEOUS STRUCTURES: Severe degenerative disc disease with endplate sclerosis is increased at L2-3. There is persistent mild retrolisthesis Grade 1 anterolisthesis at L4-5 is unchanged. There is severe facet arthropathy in the mid to lower lumbar spine. There is mild levoscoliosis. CT/CT abdomen pelvis w IV con IMPRESSION: Again seen are postsurgical changes after right hemicolectomy and right upper quadrant ileocolonic anastomosis. There is increased vascularity in the mesentery, trace ascites, and questionable thickening of the descending and sigmoid colon, and rectum. This may in part be due to incompletely distended bowel, but other etiology such as ischemia, infection, inflammatory bowel disease or not ruled out. Neoplasm as a causes less likely. The region of the pylorus/gastric antrum appears thick walled which could be related to peptic ulcer disease, infection, or other etiologies. Possible Nutcrackers syndrome: There is narrowing of the space between SMA and aorta or the duodenum crosses between the two. Right adrenalectomy and nephrectomy. Possible right oophorectomy. Hepatic steatosis Chronic pancreatitis. Possible pelvic congestion syndrome: There is prominence the left ovarian vein and left periuterine vessels. Correlate for signs symptoms. Severe degenerative changes of the lumbar spine are increasing. Fleischner guidelines were followed. Electronically signed by: Mj Alanis MD 08/10/2025 02:16 PM EDT
[2025-08-10 11:49] VITALS: BP 136/73; PULSE 83; RESP 16; TEMP 36.6; O2SAT 100; BMI 19.4
--- NOTE | 2025-08-10 11:53 | ECG_ITS ---
Test Reason : abd pain Blood Pressure : */* mmHG Vent. Rate : 73 BPM Atrial Rate : 73 BPM P-R Int : 142 ms QRS Dur : 86 ms QT Int : 402 ms P-R-T Axes : 72 54 102 degrees QTcB Int : 442 ms Normal sinus rhythm ST & T wave abnormality, consider lateral ischemia Abnormal ECG When compared with ECG of 18-Jun-2025 13:16, Inverted T waves have replaced nonspecific T wave abnormality in Lateral leads Referred By: Humble Lambert Electronically Signed By: CHAD GORDON MD
--- NOTE | 2025-08-10 11:54 | ED.GENADULT ---
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 intake, and weight loss worsening over the past 5 days. Reports recent screening [facility] at [facility] on 07/25 showing chronic pancreatitis. Denies fever, chills, diarrhea/constipation, dysuria/hematuria Related Data Home Medications ?Medication ?Instructions ?Recorded ?Confirmed cyanocobalamin (vitamin B-12) 1,000 mcg PO DAILY 08/12/20 08/10/25 1,000 mcg capsule mesalamine 0.375 gram 0.75 g PO DAILY 07/09/25 08/10/25 capsule,extended release 24 hr albuterol sulfate 1.25 mg/3 mL 2.5 mg continuous nebulization QID 08/10/25 08/10/25 solution for nebulization PRN Shortness Of Breath Or Wheezing cholecalciferol (vitamin D3) 25 25 mcg PO DAILY 08/10/25 08/10/25 mcg (1,000 unit) tablet (Vitamin D3) hydrocodone 5 mg-acetaminophen 325 1 tab PO Q4-6H PRN pain 08/10/25 08/10/25 mg tablet ketorolac 0.5 % eye drops 1 drp ophthalmic-Left TID 08/10/25 08/10/25 Previous Rx's ?Medication ?Instructions ?Recorded nebulizers (Aeroneb Go Nebulizer) #1 ea 11/13/22 montelukast 10 mg tablet 10 mg PO DAILY #90 tabs 10/18/24 (Singulair) prochlorperazine maleate 5 mg 5 mg PO TID PRN nausea and 12/19/24 tablet vomiting #30 tabs albuterol sulfate 90 mcg/actuation 2 puff PO Q4H PRN Respiratory 04/03/25 aerosol inhaler Distress #8.5 grams duloxetine 60 mg capsule,delayed 60 mg PO DAILY #90 caps 04/03/25 release zolpidem 10 mg tablet 10 mg PO BEDTIME PRN insomnia 90 07/09/25 days #90 tabs Allergies Allergy/AdvReac Type Severity Reaction Status Date / Time lisinopril (LISINOPRIL) Allergy Intermediate COUGH, Verified 08/10/25 11:53 constant cough simvastatin (SIMVASTATIN) Allergy Mild Confusion Verified 08/10/25 11:53 Review of Systems Review of Systems: Yes all other systems are reviewed and are negative Constitutional: Constitutional: Reports as per [facility] Past Medical History Attestation statement: The following information was validated with the patient. Source: old records reviewed Medical History Headache Atrial fibrillation Cataracts, both eyes PAF (paroxysmal atrial fibrillation) Dysphagia Diarrhea Atrial fibrillation with rapid ventricular response Acute respiratory failure Respiratory arrest Asthma exacerbation Radicular low back pain Polyarthralgia Scalp mass Colon cancer screening Breast cancer screening by mammogram RUQ pain Epigastric abdominal pain Chronic gastritis Chronic low back pain Tubular adenoma of colon Hypercholesterolemia Hypertension Vitamin D deficiency Asthma GERD (gastroesophageal reflux disease) Vitamin B12 deficiency Secondary malignant neoplasm of retroperitoneum and peritoneum History of DVT (deep vein thrombosis) Insomnia Surgical History History of cataract surgery History of excision of mass (~01/11/22) Hx of endoscopy History of colonoscopy Retroperitoneal liposarcoma History of nephroureterectomy History of back surgery History of section History of tubal ligation History of tonsillectomy Family History Family History Father Myocardial infarction CVD (cardiovascular disease) Mother CVD (cardiovascular disease) Stroke Brother Myocardial infarction CVD (cardiovascular disease) Social History Social History Household Members: Spouse and Family Housing: House Are you a primary care information associate to a significant other at home: No Do you presently have visiting nurse or other home services: No Alcohol intake: never Patient Tobacco Use Status: Never used Tobacco Tobacco use type: Cigarette e-Cigarette/Vaping Use: Never Used Second Hand Smoke Exposure: No Substance Use Type: Marijuana and Other service: No Current occupational status: retired Cognitive needs: No Hearing needs: No Vision needs: Yes Physical Exam ED Vital Signs: Vital Signs - 24 hr 08/10/25 11:49 08/10/25 12:45 08/10/25 12:46 Temperature 97.8 F Pulse Rate 83 77 77 Respiratory Rate 16 Blood Pressure 136/73 132/77 112/67 Pulse Oximetry 100 Oxygen Delivery Method Room Air BMI result Body Mass Index 19.4 Const Other: Pale General: cooperative, no acute distress, ill appearing (Chronically) and tired appearing Orientation/consciousness: patient oriented x3 Limitations: no limitations HENMT Head: Yes normal to inspection and Yes atraumatic Ears: hearing grossly normal bilaterally General nose exam: Normal external nose present Face and sinus: Yes normal facial exam Eyes General: appearance normal, both eyes and all related structures EOM: EOMs intact bilaterally Neck Neck: Yes normal visual inspection and Yes no meningeal signs Resp Effort & Inspection: normal respiratory effort and no respiratory distress Auscultation: clear to auscultation bilaterally Cardio Rate: regular rate Heart sounds: S1 normal heart sound present and S2 normal heart sound present GI Inspection: Yes normal to inspection Palpation (GI): Soft to palpation, Tenderness to palpation present (GI) in the epigastrum and in the RUQ, no guarding and not rigid General: Yes no CVA tenderness Back/Spine/Pelvis Back: no CVA tenderness Skin Rashes: no rashes Wounds: no wounds Neuro General: patient oriented x3, tone normal, moves all extremities and no meningeal signs Cranial nerves: Yes CN's II-XII intact bilaterally Extrem General: Yes normal to inspection Course Course Course Narrative: RME: 75-year-old female with history of abdominal cancer that required surgery in the past presents to ED for weight loss, abdominal pain, nausea, vomiting, and decreased appetite. Labs EKG ordered -1333--no leukocytosis. Chronic anemia. Initial troponin 11.9 > will obtain repeat 1430-- CT abdomen pelvis w IV con IMPRESSION: Again seen are postsurgical changes after right hemicolectomy and right upper quadrant ileocolonic anastomosis. There is increased vascularity in the mesentery, trace ascites, and questionable thickening of the descending and sigmoid colon, and rectum. This may in part be due to incompletely distended bowel, but other etiology such as ischemia, infection, inflammatory bowel disease or not ruled out. Neoplasm as a causes less likely. The region of the pylorus/gastric antrum appears thick walled which could be related to peptic ulcer disease, infection, or other etiologies. Possible Nutcrackers syndrome: There is narrowing of the space between SMA and aorta or the duodenum crosses between the two. Right adrenalectomy and nephrectomy. Possible right oophorectomy. Hepatic steatosis Chronic pancreatitis. Possible pelvic congestion syndrome: There is prominence the left ovarian vein and left periuterine vessels. Correlate for signs symptoms. Severe degenerative changes of the lumbar spine are increasing. > will give additional IVF and pain management >153--re-evaluation patient is still with abdominal discomfort and inability to tolerate p.o. after multiple doses of IV narcotics Plan to admit for further management. Case discussed with hospitalist [phone]--case discussed with GI, Dr. Baptiste - recommended PPI and antibiotics for possible colitis and potential EGD tomorrow if patient is still symptomatic Medications Administered Generic Name Dose Route Start Last Admin Trade Name Freq PRN Reason Stop Dose Admin Enoxaparin Sodium 30 mg 08/10/25 18:00 08/10/25 20:10 Enoxaparin Sodium 30 Mg/0.3 Ml Syringe SUBCUT 30 mg Q24H BLANK Administration Piperacillin Sod/Tazobactam 50 mls @ 100 mls/hr 08/10/25 23:00 08/11/25 07:40 Sod 2.25 gm/ Sodium Chloride IV Infused Q6H BLANK Infusion Sodium Chloride 3 ml 08/11/25 00:00 08/11/25 07:40 0.9 % Sodium Chloride Flush 3 Ml Syringe IVFLUSH Not Given QSHIFT BLANK Discontinued Medications Generic Name Dose Route Start Last Admin Trade Name Freq PRN Reason Stop Dose Admin Hydromorphone HCl 0.5 mg 08/10/25 20:15 08/10/25 20:47 Hydromorphone Hcl 0.5 Mg/0.5 Ml Syringe IVPUSH 08/10/25 20:16 0.5 mg ONCE ONE Administration Protocol Hydromorphone HCl 0.5 mg 08/11/25 06:33 08/11/25 07:39 Hydromorphone Hcl 0.5 Mg/0.5 Ml Syringe IVPUSH 08/11/25 06:34 0.5 mg ONCE ONE Administration Protocol Sodium Chloride 1,000 mls @ 999 mls/hr 08/10/25 12:45 08/10/25 15:32 Ns IV 08/10/25 13:45 Infused .Q1H1M BLANK Infusion Sodium Chloride 500 mls @ 999 mls/hr 08/10/25 14:30 08/10/25 16:52 Ns IV 08/10/25 15:00 Infused .Q31M BLANK Infusion Iohexol 100 ml 08/10/25 13:40 08/10/25 13:42 Iohexol 350 Mg/Ml 100 Ml Infus..Btl IV 08/10/25 13:41 85 ml ONCE ONE Administration Metoclopramide HCl 10 mg 08/10/25 16:04 08/10/25 20:06 Metoclopramide Hcl 10 Mg/2 Ml Vial IVPUSH 08/10/25 16:05 10 mg ONCE ONE Administration Morphine Sulfate 2 mg 08/10/25 12:44 08/10/25 12:53 Morphine Sulfate 2 Mg/Ml Cartridge IVPUSH 08/10/25 12:45 2 mg ONCE ONE Administration Protocol Morphine Sulfate 4 mg 08/10/25 14:29 08/10/25 15:35 Morphine Sulfate 4 Mg/Ml Cartridge IVPUSH 08/10/25 14:30 4 mg ONCE ONE Administration Protocol Ondansetron HCl 4 mg 08/10/25 12:44 08/10/25 12:53 Ondansetron Hcl 4 Mg/2 Ml Vial IVPUSH 08/10/25 12:45 4 mg ONCE ONE Administration Pantoprazole Sodium 40 mg 08/10/25 16:19 08/10/25 16:52 Pantoprazole Sodium 40 Mg/10 Ml Vial IVPUSH 08/10/25 16:20 40 mg ONCE ONE Administration Medical Decision Making Medical Decision Making MDM Narrative: 75-year-old female with a past medical history AFib, asthma, HTN, HLD, GERD, 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 intake, and weight loss worsening over the past 5 days. On exam vital signs stable, NAD, appears chronically ill, pale, abdomen is soft with upper/epigastric/RUQ tenderness, no rebound or guarding. Concern for acute on chronic pancreatitis vs cholecystitis/lithiasis vs ?recurrent malignancy. Lower suspicion for ACS, diverticulitis, appendicitis at this time. Rule out SBO with surgical history. Plan: EKG, labs, UA, CT AP, pain management, re-evaluate Please refer to course for remaining clinical decision making, interpretation of labs/imaging results, and discussions with consultants and/or family members. Differential Diagnosis Differential Diagnoses: The differential diagnosis associated with the presentation includes As above Admission/Observation Consideration of admission/observation: Escalation of care including admission/observation considered Lab Data MDM Lab Attestation statement: I reviewed the patient's lab results. 08/10/25 12:14 08/10/25 12:15 Labs: Lab Results 08/10/25 08/10/25 08/10/25 Range/Units 12:14 12:15 14:41 WBC 7.0 (4.8-10.8) X10*3/uL RBC 2.93 L D (4.20-5.50) X10*6/uL Hgb 9.2 L (12.0-16.0) g/dl Hct 26.6 L D (37.0-47.0) % MCV 90.8 (80.0-98.0) fL MCH 31.4 (27.0-33.0) pg MCHC 34.6 (31.0-35.0) g/dl RDW 15.3 (11.0-16.0) % Plt Count 259 (160-400) X10*3/uL MPV 10.2 (9.4-12.3) fL Immature Gran % (Auto) 0.7 H (0.0-0.4) % Neut % (Auto) 69.3 (45-73) % Lymph % (Auto) 23.1 (20-40) % [place] % (Auto) 4.6 (2-11) % Eos % (Auto) 2.0 (0-4) % Baso % (Auto) 0.3 (0-2) % Lymph # (Auto) 1.6 (1.2-4.9) X10*3/uL [place] # (Auto) 0.3 (0.1-1.2) X10*3/uL Eos # (Auto) 0.1 (0.0-0.4) X10*3/uL Baso # (Auto) 0.0 (0.0-0.2) X10*3/uL Abs Immat Gran (auto) 0.05 H (0.00-0.03) X10*3/uL Absolute Neuts (auto) 4.8 (2.0-8.3) x10*3/uL Absolute Nucleated RBC 0.000 (0.0-0.012) X10*3/uL Nucleated RBC % (auto) 0.0 (0.0-0.2) /100WBC PT 11.7 (10.9-12.4) SEC INR 1.0 (0.9-1.1) APTT 33.9 (26.7-34.1) SEC Sodium 133 L (135-145) mmol/L Potassium 4.6 (3.3-5.1) mmol/L Chloride 107 (96-108) mmol/L Carbon Dioxide 22 (22-29) mmol/L Anion Gap 9 L (12-20) BUN 14 (9-16) mg/dL Creatinine 1.34 (0.5-1.4) mg/dL Estim Creat Clear Calc 29.8 Estimated GFR 38 Random Glucose 114 (60-115) mg/dL Lactic Acid 1.5 (0.5-2.0) mmol/L Calcium 8.6 D (8.4-10.2) mg/dL Magnesium 1.9 (1.6-2.6) mg/dL Total Bilirubin 0.2 (0.0-1.0) mg/dL Direct Bilirubin < 0.2 (0.0-0.5) mg/dL AST 24 (5-31) U/L ALT 28 (0-31) U/L Alkaline Phosphatase 86 (39-117) U/L Troponin I High Sens 11.9 11.9 (<3.5-17.0) ng/L Total Protein 4.7 L (6.5-8.0) g/dL Albumin 2.9 L (3.5-5.0) g/dL Lipase 22 (8-78) U/L Urine Color Urine Appearance Urine pH (5.0-9.0) Ur Specific [place] (1.005-1.025) Urine Protein (Neg-Trace) mg/dL Urine Glucose (UA) (Negative) mg/dL Urine Ketones (Negative) mg/dL Urine Blood (Negative) Urine Nitrite (Negative) Ur Leukocyte Esterase (Negative) Urine RBC (0-2) /HPF Urine WBC (0-5) /HPF Ur Squamous Epith Cells (0-2) /HPF Urine Bacteria (None Seen) Hyaline Casts (0-2) /LPF 08/10/25 Range/Units 14:43 WBC (4.8-10.8) X10*3/uL RBC (4.20-5.50) X10*6/uL Hgb (12.0-16.0) g/dl Hct (37.0-47.0) % MCV (80.0-98.0) fL MCH (27.0-33.0) pg MCHC (31.0-35.0) g/dl RDW (11.0-16.0) % Plt Count (160-400) X10*3/uL MPV (9.4-12.3) fL Immature Gran % (Auto) (0.0-0.4) % Neut % (Auto) (45-73) % Lymph % (Auto) (20-40) % [place] % (Auto) (2-11) % Eos % (Auto) (0-4) % Baso % (Auto) (0-2) % Lymph # (Auto) (1.2-4.9) X10*3/uL [place] # (Auto) (0.1-1.2) X10*3/uL Eos # (Auto) (0.0-0.4) X10*3/uL Baso # (Auto) (0.0-0.2) X10*3/uL Abs Immat Gran (auto) (0.00-0.03) X10*3/uL Absolute Neuts (auto) (2.0-8.3) x10*3/uL Absolute Nucleated RBC (0.0-0.012) X10*3/uL Nucleated RBC % (auto) (0.0-0.2) /100WBC PT (10.9-12.4) SEC INR (0.9-1.1) APTT (26.7-34.1) SEC Sodium (135-145) mmol/L Potassium (3.3-5.1) mmol/L Chloride (96-108) mmol/L Carbon Dioxide (22-29) mmol/L Anion Gap (12-20) BUN (9-16) mg/dL Creatinine (0.5-1.4) mg/dL Estim Creat Clear Calc Estimated GFR Random Glucose (60-115) mg/dL Lactic Acid (0.5-2.0) mmol/L Calcium (8.4-10.2) mg/dL Magnesium (1.6-2.6) mg/dL Total Bilirubin (0.0-1.0) mg/dL Direct Bilirubin (0.0-0.5) mg/dL AST (5-31) U/L ALT (0-31) U/L Alkaline Phosphatase (39-117) U/L Troponin I High Sens (<3.5-17.0) ng/L Total Protein (6.5-8.0) g/dL Albumin (3.5-5.0) g/dL Lipase (8-78) U/L Urine Color Yellow Urine Appearance Clear Urine pH 5.5 (5.0-9.0) Ur Specific [place] 1.020 (1.005-1.025) Urine Protein Negative (Neg-Trace) mg/dL Urine Glucose (UA) Negative (Negative) mg/dL Urine Ketones Negative (Negative) mg/dL Urine Blood Negative (Negative) Urine Nitrite Positive H (Negative) Ur Leukocyte Esterase Small (1+) H (Negative) Urine RBC 0-2 (0-2) /HPF Urine WBC 0-5 (0-5) /HPF Ur Squamous Epith Cells 0-2 (0-2) /HPF Urine Bacteria 1+ (None Seen) Hyaline Casts 0-2 (0-2) /LPF Independent Interpretation I performed an independent interpretation of an: EKG (My interpretation EKG NSR rate of 73. QTC 442. Inverted T-waves have replaced nonspecific T-wave abnormality in lateral leads. No STEMI.) Radiology Impression Discussion of test interpretation with radiology: I have reviewed the radiologist's reading. Independent Historian Clinical information obtained from an independent historian. History obtained from or confirmed by: Other (Daughter) External Record Review External record reviewed: Inpatient record, Office record, Outpatient record, Prior outpatient labs, Prior outpatient radiology, Primary care record and Outside ED record Tests considered The following testing was considered but not selected: As above Prescription Management I considered prescription management with: Pain Medication Chronic Conditions Patient?s care impacted by: Cancer Social Determinants Patient?s care significantly limited by Social Determinants of Health including: Problems related to primary support group and Other Social Determinant of Health Critical Care Time Critical Care Time Critical Care Time: Yes Total Critical Care Time: 40 Attestation: I have personally provided critical care time exclusive of time spent on separately billable procedures. Time includes review of lab data, radiology results, discussion with consultants, and monitoring for potential decompensation. Intervention performed as documented. Discharge Plan Discharge Clinical Impression: Colitis, Chronic pancreatitis Abdominal pain Qualifiers: Abdominal location: upper abdomen, unspecified Qualified Code(s): R10.10 - Upper abdominal pain, unspecified Patient Disposition: Admitted As Inpatient Discharge Date/Time: 08/11/25 09:00
[2025-08-10 12:22] LABS: MANUAL DIFF FLAG NO
[2025-08-10 12:24] LABS: Hematocrit 26.6 % (37.0-47.0); Hemoglobin 9.2 g/dl (12.0-16.0); Imm Gran Abs Auto 0.05 X10*3/uL (0.00-0.03); Imm Gran Pct Auto 0.7 % (0.0-0.4); Lymphocytes Absolute Auto 1.6 X10*3/uL (1.2-4.9); Mean Corpuscular HGB Conc 34.6 g/dl (31.0-35.0); Mean Corpuscular Hemoglobin 31.4 pg (27.0-33.0); Mean Corpuscular Volume 90.8 fL (80.0-98.0); NRBC Abs Auto 0.000 X10*3/uL (0.0-0.012); NRBC Pct Auto 0.0 /100WBC (0.0-0.2); Platelet Count 259 X10*3/uL (160-400); Red Blood Count 2.93 X10*6/uL (4.20-5.50); White Blood Count 7.0 X10*3/uL (4.8-10.8)
[2025-08-10 12:28] LABS: INTERNATIONAL NORM RATIO 1.0 (0.9-1.1); Prothrombin Time 11.7 SEC (10.9-12.4)
[2025-08-10 12:30] LABS: Partial Thromboplastin Time 33.9 SEC (26.7-34.1)
[2025-08-10 12:37] LABS: Alanine Aminotransferase 28 U/L (0-31); Albumin Level 2.9 g/dL (3.5-5.0); Alkaline Phosphatase 86 U/L (39-117); Anion Gap 9 (12-20); Aspartate Amino Transferase 24 U/L (5-31); Blood Urea Nitrogen 14 mg/dL (9-16); Calcium 8.6 mg/dL (8.4-10.2); Carbon Dioxide 22 mmol/L (22-29); Chloride 107 mmol/L (96-108); Creatinine Clr Calc Pharmacy 29.8; Estimated Glomerular Filt Rate 38; Lipase 22 U/L (8-78); Magnesium 1.9 mg/dL (1.6-2.6); Potassium 4.6 mmol/L (3.3-5.1); Sodium 133 mmol/L (135-145); Total Protein 4.7 g/dL (6.5-8.0)
[2025-08-10 12:41] LABS: Troponin-I High Sensitivity 11.9 ng/L (<3.5-17.0)
[2025-08-10 12:45] VITALS: BP 132/77; PULSE 77
[2025-08-10 12:46] VITALS: BP 112/67; PULSE 77
[2025-08-10] MEDS: iohexoL 350 MG/ML 100 ML INFUS..BTL IV (13:42)
[2025-08-10 14:50] LABS: Appearance Urine Clear; Glucose Urine UA Negative (Negative); PH 5.5 (5.0-9.0); Specific Gravity - Urine 1.020 (1.005-1.025); UMIC TRIGGER UACC YES
[2025-08-10 14:57] LABS: UACC Culture Trigger YES
--- OUTSIDE RECORDS SUMMARY | 2025-08-10 15:10 | XMS_ITS | Encounter Summary ---
Author Organization [facility] Address [address] [place] [address] Phone Care Team Providers Care President Celebrity Acquistion Name Role Phone Chiara Diggs MD Primary Care Provider [phone] Joelle Grande MD, MS Unavailable Oly Kraus MD, MPH Unavailable + [phone] Valerie Conti MD Unavailable [phone] aDryn Donohue MD Unavailable [phone] Savanna Banegas Unavailable Cris Aburto SILK SNAPPER Unavailable [phone] Arlin Cherry SILK SNAPPER Unavailable +[phone] Shun Schuster MD Unavailable Portia Baez@[email or web address] Jaspal Pettit MD Unavailable Joelle Grande MD, MS Unavailable Danuta Patel MD Unavailable [phone] Encounter Details Date Type Department Care Team (Late st Contact Info) Description 04/07/2020 [facility], [facility] [place] 450 [facility], Floor L1 [place] [address] Social History Tobacco Use Types Packs/Day Years [...] Care Team (Late st Contact Info) Description 07/29/[address] [facility] Imaging [facility], [facility], [place] [facility], [facility] L1 [place] [address] 07/29/2025 Procedure [address] [facility] Imaging [facility], [facility], [place] [facility], [facility] L1 [place] [address] 07/31/2026 1:40 PM EDT Appointment [facility] Imaging Department, [facility], [place] [facility], [facility] L1 [place] [address] Danuta Patel MD [address] [place] [address] Agnes@[email or web address] [facility] 08/04/2026 10:30 AM EDT [facility], [address], 6th [place] [address] Danuta Patel MD [address] [place] [address] Agnes@[email or web address] documented as of this encounter Visit Diagnoses [...] documented as of this encounter Care Teams President Celebrity Acquistion Relationship Specialty Start Date End Date Chiara Diggs MD [address] [place] [address] [address] [place] [phone] PCP - General Internal Medicine 07/25/18 Joelle Grande MD, MS [address] [place] [address] JOSÉ MANUEL@[facility] Surgeon Surgical Oncology 08/15/18 Oly Kraus MD, MPH [address] [place] [address] Lolis@[facility] Primary Oncologist Radiation Oncology 08/15/18 Valerie Conti MD [address] [place] [address] Mariusz@[facility] Primary Oncologist Medical Oncology 08/15/18 04/11/20 Daryn Donohue MD [address] [place] [address] Referring Physician Urology 08/19/18 Savanna Banegas [address] [place] [address] NESTOR@[facility] Picture Booker 08/19/18 Cris Aburto, [facility] [address] [place] [address] [email or web address] Bus Boy 12/26/18 Arlin Cherry, [address] [address] Maykel@[facility] Bus Boy Oncology 07/26/19 Shun Schuster MD Rohan@[facility] Primary Oncologist Medical Oncology 04/12/20 06/21/21 Jaspal Ordoñez MD [address] [place] [address] [email or web address] Palliative Care 12/22/20 Joelle Grande MD, MS [address] [place] [address] JOSÉ MANUEL@[facility] Surgical Oncology 03/07/21 Danuta Patel MD [address] [place] [address] Agnes@[facility] Medical Oncology 06/22/21 documented as of this encounter Additional Source Comments The information contained in this document represents components of the legal health record. It is not the complete legal health record.[facility]
--- OUTSIDE RECORDS SUMMARY | 2025-08-10 15:10 | XMS_ITS | Encounter Summary ---
Author Organization [facility] Address [address] [place] [address] Phone Care Team Providers Care Workers Compensation Claims Assistant Name Role Phone Chiara Diggs MD Primary Care Provider [phone] Joelle Grande MD, MS Unavailable Oly Kraus MD, MPH Unavailable + [phone] Daryn Donohue MD Unavailable [phone] Savanna Banegas Unavailable Cris Aburto PROTOTYPE MACHINIST Unavailable +[phone] Arlin Cherry PROTOTYPE MACHINIST Unavailable [phone] Shun Schuster MD Unavailable Portia [email or web address] Jaspal Pettit MD Unavailable Joelle Grande MD, MS Unavailable Danuta Patel MD Unavailable [phone] Encounter Details Date Type Department Care Team (Late st Contact Info) Description 05/19/2020 Procedure Pass [facility] Imaging [facility], [facility] [place], [place] 450 [facility], Floor L1 [place] [address] Social History Tobacco Use Types Packs/Day Years [...] st Contact Info) Description 07/29/[address] [facility] Imaging Department, [facility], [place] [address] [facility], Floor L1 [place] [address] 07/29/[address] [facility] Imaging Department, [facility], [place] [address] [facility], Floor [address]1 [place] [address] 07/31/2026 1:40 PM EDT Appointment [facility] Imaging Department, [facility], [place] 450 [facility], Floor [address]1 [place] [address] Danuta Patel MD [address] [place] [address] Agnes@[facility] 08/04/2026 10:30 AM EDT [facility], [address], 6th [place] [address] Danuta Patel MD [address] [place] [address] Agnes@[facility] documented as of this encounter Visit Diagnoses [...] documented as of this encounter Care Teams Workers Compensation Claims Assistant Relationship Specialty Start Date End Date Chiara Diggs MD [address] [place] [address] Drive [address] [place] [phone] PCP - General Internal Medicine 07/25/18 Joelle Grande MD, MS [address] [place] [address] JOSÉ MANUEL@[facility] Surgeon Surgical Oncology 08/15/18 Oly Kraus MD, MPH [address] [place] [address] Lolis@[email or web address] Primary Oncologist Radiation Oncology 08/15/18 Daryn Donohue MD [address] [place] [address] Referring Physician Urology 08/19/18 Savanna Banegas [address] [place] [address] NESTOR@[facility] Customer Acquisition Specialist 08/19/18 Cris Aburto [address] [address] [email or web address] Corn Detasseler Machine Operator 12/26/18 Arlin Cherry, [facility] [address] [place] [address] Maykel@[email or web address] Corn Detasseler Machine Operator Oncology 07/26/19 Shun Schuster MD Rohan@[email or web address] Primary Oncologist Medical Oncology 04/12/20 06/21/21 Jaspal Ordoñez MD [address] [place] [address] [email or web address] Palliative Care 12/22/20 Joelle Grande MD, MS [address] [place] [address] JOSÉ MANUEL@[facility] Surgical Oncology 03/07/21 Danuta Patel MD [address] [place] [address] Agnes@[email or web address] Medical Oncology 06/22/21 documented as of this encounter Additional Source Comments The information contained in this document represents components of the legal health record. It is not the complete legal health record.[facility]
--- OUTSIDE RECORDS SUMMARY | 2025-08-10 15:10 | XMS_ITS | Encounter Summary ---
Author Organization [facility] Address [address] [place] [address] Phone Care Team Providers Care Bottling Line Operator Name Role Phone Chiara Diggs MD Primary Care Provider [phone] Joelle Grande MD, MS Unavailable Oly Kraus MD, MPH Unavailable Daryn Donohue MD Unavailable [phone] Savanna Banegas Unavailable Cris Aburto ASSEMBLY MEMBER Unavailable + [phone] Arlin Cherry ASSEMBLY MEMBER Unavailable [phone] Jaspal Ordoñez MD Unavailable Joelle Grande MD, MS Unavailable Danuta Patel MD Unavailable [phone] Encounter Details Date Type Department Care Team (Late st Contact Info) Description 01/18/2022 Procedure [facility] [place] [place] 450 [facility], Floor L1 [place] [address] Social History Tobacco Use Types Packs/Day Years [...] st Contact Info) Description 07/29/[address] [facility] Imaging Department, [facility], [place] 450 [facility], Floor L1 [place] [address] 07/29/[address] [facility] Imaging Department, [facility], [place] 450 [facility], Floor L1 [place] [address] 07/31/2026 1:[address] 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 02/28/2019 12/20/2022 1:[address] Assessment Noted Time PHQ-2 Depression Total Score: 0 11/12/19 1:45 PM EST documented as of this encounter Care Teams Bottling Line Operator Relationship Specialty Start Date End Date Dontae Chiara Crandall MD [address] [place] [address] [address] [place] [phone] PCP - General Internal Medicine 07/25/18 Joelle Grande MD, MS [address] [place] [address] JOSÉ MANUEL@[facility] Surgeon Surgical Oncology 08/15/18 Oly Kraus MD, MPH [address] [place] [address] Lolis@[facility] Primary Oncologist Radiation Oncology 08/15/18 Daryn Donohue MD [address] [place] [address] Referring Physician Urology 08/19/18 Savanna Banegas [address] [place] [address] NESTOR@[facility] Chain Testing Machine Operator 08/19/18 Cris Aburto, [address] [address] [email or web address] Needle Maker 12/26/18 Arlin Cherry, [address] [address] Maykel@[facility] Needle Maker Oncology 07/26/19 Jaspal Ordoñez MD [address] [place] [address] [email or web address] Palliative Care 12/22/20 Joelle Grande MD, MS [address] [place] [address] JOSÉ MANUEL@[email or web address] Surgical Oncology 03/07/21 Danuta Patel MD [address] [place] [address] Agnes@[email or web address] Medical Oncology 06/22/21 documented as of this encounter Additional Source Comments The information contained in this document represents components of the legal health record. It is not the complete legal health record.[facility]
--- OUTSIDE RECORDS SUMMARY | 2025-08-10 15:10 | XMS_ITS | Encounter Summary ---
Author Organization [facility] Address [address] [place] [address] Phone Care Team Providers Care Metal Sorter Name Role Phone Chiara Diggs MD Primary Care Provider [phone] Joelle Grande MD, MS Unavailable Oly Kraus MD, MPH Unavailable + [phone] Daryn Donohue MD Unavailable [phone] Savanna Banegas Unavailable Cris Aburto COMMERCIAL REAL ESTATE MANAGER Unavailable [phone] Arlin Cherry COMMERCIAL REAL ESTATE MANAGER Unavailable [phone] Shun Schuster MD Unavailable Portia [email or web address] Jaspal Pettit MD Unavailable Joelle Grande MD, MS Unavailable Danuta Patel MD Unavailable [phone] Encounter Details Date Type Department Care Team (Late st Contact Info) Description 12/22/2020 Procedure Pass [facility], [facility] [place], [place] 450 [facility], Floor L1 [place] [address] Social History Tobacco Use Types Packs/Day Years [...] st Contact Info) Description 07/29/2025 Procedure Pass [facility] Imaging Department, [facility], [place] 450 [facility], Floor L1 [place] [address] 07/29/2025 Procedure Pass [facility] Imaging Department, [facility], [place] [address] [facility], Floor L1 [place] [address] 07/31/2026 1:40 PM EDT Appointment [facility] Imaging Department, [facility], [place] [address] [facility], Floor L1 [place] [address] Danuta Patel MD [address] [place] [address] Agnes@[facility] 08/04/2026 10:30 AM EDT [facility], [address], 6th [place] [address] Danuta Patel MD [address] [place] [address] Agnes@[facility] documented as of [...] documented as of this encounter Care Teams Metal Sorter Relationship Specialty Start Date End Date Chiara Diggs MD [address] [place] [address] Drive [address] [place] [phone] PCP - General Internal Medicine 07/25/18 Joelle Grande MD, MS [address] [place] [address] JOSÉ MANUEL@[facility] Surgeon Surgical Oncology 08/15/18 Oly Kraus MD, MPH [address] [place] [address] Lolis@[facility] Primary Oncologist Radiation Oncology 08/15/18 Daryn Donohue MD [address] [place] [address] Referring Physician Urology 08/19/18 Savanna Banegas [address] [place] [address] NESTOR@[facility] Flyer Builder 08/19/18 Cris Aburto, [address] [address] [email or web address] Induction Furnace Operator 12/26/18 Arlin Cherry, [facility] [address] [place] [address] Maykel@[facility] Induction Furnace Operator Oncology 07/26/19 Shun Schuster MD Rohan@[email or web address] Primary Oncologist Medical Oncology 04/12/20 06/21/21 Jaspal Ordoñez MD [address] [place] [address] Palliative Care 12/22/20 Joelle Grande MD, MS [address] [place] [address] JOSÉ MANUEL@[facility] Surgical Oncology 03/07/21 Danuta Patel MD [address] [place] [address] Agnes@[facility] Medical Oncology 06/22/21 documented as of this encounter Additional Source Comments The information contained in this document represents components of the legal health record. It is not the complete legal health record.[facility]
--- OUTSIDE RECORDS SUMMARY | 2025-08-10 15:10 | XMS_ITS | Encounter Summary ---
Author Organization [facility] Address [address] [place] [address] Phone Care Team Providers Care Director Of Diversity And Inclusion Name Role Phone Chiara Diggs MD Primary Care Provider [phone] Joelle Grande MD, MS Unavailable Oly Kraus MD, MPH Unavailable + [phone] Daryn Donohue MD Unavailable [phone] Savanna Banegas Unavailable Cris Aburto DRILL DOCTOR Unavailable [phone] Arlin Cherry DRILL DOCTOR Unavailable [phone] Shun Schuster MD Unavailable Portia [email or web address] Jaspal Pettit MD Unavailable Joelle Grande MD, MS Unavailable Danuta Patel MD Unavailable [phone] Encounter Details Date Type Department Care Team (Late st Contact Info) Description 05/19/2020 Procedure Pass [facility] Imaging [facility], [facility] [place], [place] 450 [facility], Floor L1 [place] [address] Social History Tobacco Use Types Packs/Day Years [...] st Contact Info) Description 07/29/2025 Procedure Pass [facility] Imaging Department, [facility] [place] 450 [facility], Floor L1 [place] [address] 07/29/2025 Procedure Pass [facility] Imaging Department, [facility] [place] 450 [facility], Floor L1 [place] [address] 07/31/2026 1:40 PM EDT Appointment [facility] Imaging Department, [facility] [place] 450 [facility], Floor L1 [place] [address] Danuta Patel MD [address] [place] [address] Agnes@[facility] 08/04/2026 10:30 AM EDT [facility], [address], 6th [place] [address] Danuta Patel MD [address] [place] [address] Agnes@[facility] documented as of this encounter [...] of this encounter Care Teams Director Of Diversity And Inclusion Relationship Specialty Start Date End Date Chiara Diggs MD [address] [place] [address] [address] [place] [phone] PCP - General Internal Medicine 07/25/18 Joelle Grande MD, MS [address] [place] [address] JOSÉ MANUEL@[facility] Surgeon Surgical Oncology 08/15/18 Oly Kraus MD, MPH [address] [place] [address] Lolis@[facility] Primary Oncologist Radiation Oncology 08/15/18 Daryn Donohue MD [address] [place] [address] Referring Physician Urology 08/19/18 Savanna Banegas [address] [place] [address] NESTOR@[facility] Communication Lecturer 08/19/18 Cris Aburto [address] [address] delvin@[email or web address] Personal Banker 12/26/18 Arlin Cherry, [facility] [address] [place] [address] Maykel@[email or web address] Personal Banker Oncology 07/26/19 Shun Schuster MD Rohan@[email or web address] Primary Oncologist Medical Oncology 04/12/20 06/21/21 Jaspal Ordoñez MD [address] [place] [address] [email or web address] Palliative Care 12/22/20 Joelle Grande MD, MS [address] [place] [address] JOSÉ MANUEL@[email or web address] Surgical Oncology 03/07/21 Danuta Patel MD [address] [place] [address] Agnes@[facility] Medical Oncology 06/22/21 documented as of this encounter Additional Source Comments The information contained in this document represents components of the legal health record. It is not the complete legal health record.[facility]
--- OUTSIDE RECORDS SUMMARY | 2025-08-10 15:10 | XMS_ITS | Encounter Summary ---
Author Organization [facility] Address [address] [place] [address] Phone Care Team Providers Care Dialysis Rn Name Role Phone Chiara Diggs MD Primary Care Provider [phone] Joelle Grande MD, MS Unavailable Oly Kraus MD, MPH Unavailable Daryn Donohue MD Unavailable Savanna Banegas Unavailable Cris Aburto TALENT ACQUISITION ASSISTANT Unavailable [phone] Arlin Cherry TALENT ACQUISITION ASSISTANT Unavailable Jaspal Ordoñez MD Unavailable Joelle Grande MD, MS Unavailable Danuta Patel MD Unavailable [phone] Encounter Details Date Type Department Care Team (Late st Contact Info) Description 09/27/2022 Procedure Pass [facility] Imaging Department, [facility] [place], [place] 450 [facility], Floor L1 [place] [address] Social History Tobacco Use Types Packs/Day Years [...] st Contact Info) Description 07/29/2025 Procedure Pass [facility] Imaging Department, [facility], [place] 450 [facility], Floor L1 [place] [address] 07/29/2025 Procedure Pass [facility] Imaging Department, [facility], [place] [address] [facility], Floor [address]1 [place] [address] 07/31/2026 1:40 PM EDT Appointment [facility] Imaging Department, [facility], [place] 450 [facility], Floor [address] [place] [address] Danuta Patel MD [address] [place] [address] Agnes@[facility] 08/04/2026 10:30 AM EDT [facility], [address], 6th [place] [address] Danuta Patel MD [address] [place] [address] Agnes@[facility] documented as of this encounter Visit Diagnoses Not on filedocumented in this encounter Additional Health Concerns 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 02/28/2019 12/20/2022 1:[address] Assessment Noted Time PHQ-2 Depression Total Score: 0 11/12/19 1:45 PM EST documented as of this encounter Care Teams Dialysis Rn Relationship Specialty Start Date End Date Dontae Chiara Crandall MD [address] [place] [address] [address] [place] [phone] PCP - General Internal Medicine 07/25/18 Joelle Grande MD, MS [address] [place] [address] JOSÉ MANUEL@[facility] Surgeon Surgical Oncology 08/15/18 Oly Kraus MD, MPH [address] [place] [address] Lolis@[facility] Primary Oncologist Radiation Oncology 08/15/18 Daryn Donohue MD [address] [place] [address] Referring Physician Urology 08/19/18 Savanna Banegas [address] [place] [address] NESTOR@[facility] Groundskeeping Maintenance Worker 08/19/18 Cris Aburto, [address] [address] [email or web address] 12/26/18 Arlin Cherry, [address] [address] Maykel@[facility] Oncology 07/26/19 Jaspal Ordoñez MD [address] [place] [address] [email or web address] Palliative Care 12/22/20 Joelle Grande MD, MS [address] [place] [address] JOSÉ MANUEL@[email or web address] 234 BEDS AT [facility] Surgical Oncology 03/07/21 Danuta Patel MD [address] [place] [address] Agnes@[facility] Medical Oncology 06/22/21 documented as of this encounter Additional Source Comments The information contained in this document represents components of the legal health record. It is not the complete legal health record.[facility]
--- OUTSIDE RECORDS SUMMARY | 2025-08-10 15:10 | XMS_ITS | Encounter Summary ---
Author Organization [facility]ly [facility] Address [address] [place] [address] Phone Care Team Providers Care Commodity Merchant Name Role Phone Chiara Diggs MD Primary Care Provider [phone] Joelle Grande MD, MS Unavailable Oly Kraus MD, MPH Unavailable Daryn Donohue MD Unavailable Savanna Banegas Unavailable Cris Aburto WELCOME CENTER AGENT Unavailable + [phone] Arlin Cherry WELCOME CENTER AGENT Unavailable Jaspal Ordoñez MD Unavailable Joelle Grande MD, MS Unavailable Danuta Patel MD Unavailable [phone] Encounter Details Date Type Department Care Team (Late st Contact Info) Description 01/18/2022 [facility] [place] [place] [address] [facility], Floor [address]1 [place] [address] Social History Tobacco Use Types Packs/Day Years [...] 07/29/[address] [facility] Imaging Department, [facility], [place] [address] [facility], [place] [address]1 [place] [address] 07/29/[address] [facility] Imaging Department, [facility], [place] [address] [facility], [place] [address]1 [place] [address] 07/31/2026 1:40 PM EDT Appointment 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 02/28/2019 12/20/2022 1:[address] Assessment Noted Time PHQ-2 Depression Total Score: 0 11/12/19 1:45 PM EST documented as of this encounter Care Teams Commodity Merchant Relationship Specialty Start Date End Date Dontae Chiara Crandall MD [address] [place] [address] [address] [place] [phone] PCP - General Internal Medicine 07/25/18 Joelle Grande MD, MS [address] [place] [address] JOSÉ MANUEL@[facility] Surgeon Surgical Oncology 08/15/18 Oly Kraus MD, MPH [address] [place] [address] Lolis@[facility] Primary Oncologist Radiation Oncology 08/15/18 Daryn Donohue MD [address] [place] [address] Referring Physician Urology 08/19/18 Savanna Banegas [address] [place] [address] NESTOR@[facility] Registered Respiratory Technician 08/19/18 Cris Aburto, [address] [address] [email or web address] Customer Support Consultant 12/26/18 Arlin Cherry, [address] [address] Maykel@[facility] Customer Support Consultant Oncology 07/26/19 Jaspal Ordoñez MD [address] [place] [address] [email or web address] Palliative Care 12/22/20 Joelle Grande MD, MS [address] [place] [address] JOSÉ MANUEL@[email or web address] Surgical Oncology 03/07/21 Danuta Patel MD [address] [place] [address] [email or web address] Medical Oncology 06/22/21 documented as of this encounter Additional Source Comments The information contained in this document represents components of the legal health record. It is not the complete legal health record.[facility]
--- OUTSIDE RECORDS SUMMARY | 2025-08-10 15:10 | XMS_ITS | Encounter Summary ---
Author Organization [facility] Address [address] [place] [address] Phone Care Team Providers Care Folder Inspector Name Role Phone Chiara Diggs MD Primary Care Provider [phone] Joelle Grande MD, MS Unavailable Oly Kraus MD, MPH Unavailable + [phone] Daryn Donohue MD Unavailable Savanna Banegas Unavailable Cris Aburto SCULPTURE INSTRUCTOR Unavailable [phone] Arlin Cherry SCULPTURE INSTRUCTOR Unavailable [phone] Shun Schuster MD Unavailable Portia [email or web address] Jaspal Pettit MD Unavailable Joelle Grande MD, MS Unavailable Danuta Ptael MD Unavailable [phone] Encounter Details Date Type Department Care Team (Late st Contact Info) Description 08/25/2020 [facility] [address] [place] [address] Social History Tobacco Use Types Packs/Day Years [...] Info) Description 07/29/2025 Procedure Pass [facility] Imaging Department, [facility], [place] [address] [facility], Floor [address]1 [place] [address] 07/29/2025 Procedure Pass [facility] Imaging Department, [facility], [place] [address] [facility], [address] [place] [address] 07/31/2026 1:40 PM EDT Appointment [facility] Imaging Department, [facility], [place] [address] [facility], Floor [address] [place] [address] Danuta Patel MD [address] [place] [address] Agnes@[facility] 08/04/2026 10:30 AM EDT [facility], [address], 6th [place] [address] Danuta Patel MD [address] [place] [address] Agnes@[facility] documented as of this [...] documented as of this encounter Care Teams Folder Inspector Relationship Specialty Start Date End Date Chiara Diggs MD [address] [place] [address] [place] [phone] PCP - General Internal Medicine 07/25/18 Joelle Grande MD, MS [address] [place] [address] JOSÉ AMNUEL@[facility] Surgeon Surgical Oncology 08/15/18 Oly Kraus MD, MPH [address] [place] [address] Lolis@[email or web address] Primary Oncologist Radiation Oncology 08/15/18 Daryn Donohue MD [address] [place] [address] Referring Physician Urology 08/19/18 Savanna Banegas [address] [place] [address] NESTOR@[facility] Hyster Machine Operator 08/19/18 Cris Aburto, [facility] [address] [place] [address] [email or web address] Spinner Iron 12/26/18 Arlin Cherry, [facility] [address] [place] [address] Maykel@[facility] Spinner Iron Oncology 07/26/19 Shun Schuster MD [email or web address] Primary Oncologist Medical Oncology 04/12/20 06/21/21 Jaspal Ordoñez MD [address] [place] [address] [email or web address] Palliative Care 12/22/20 Joelle Grande MD, MS [address] [place] [address] JOSÉ MANUEL@[email or web address] Surgical Oncology 03/07/21 Danuta Patel MD [address] [place] [address] Agnes@[email or web address] Medical Oncology 06/22/21 documented as of this encounter Additional Source Comments The information contained in this document represents components of the legal health record. It is not the complete legal health record.[facility]
--- OUTSIDE RECORDS SUMMARY | 2025-08-10 15:10 | XMS_ITS | Encounter Summary ---
Author Organization [facility] Address [address] [place] [address] Phone Care Team Providers Care Distribution Sales Manager Name Role Phone Chiara Diggs MD Primary Care Provider [phone] Joelle Grande MD, MS Unavailable Oly Kraus MD, MPH Unavailable + [phone] Daryn Donohue MD Unavailable Savanna Banegas Unavailable Cris Aburto EPIC PRELUDE ANALYST Unavailable [phone] Arlin Cherry EPIC PRELUDE ANALYST Unavailable [phone] Shun Schuster MD Unavailable Portia [email or web address] Jaspal Pettit MD Unavailable Joelle Grande MD, MS Unavailable Danuta Patel MD Unavailable [phone] Encounter Details Date Type Department Care Team (Late st Contact Info) Description 08/25/2020 Procedure Pass [facility] [address] [place] [address] Social History Tobacco Use Types Packs/Day Years [...] st Contact Info) Description 07/29/2025 Procedure Pass [facility] Imaging Department, [facility], [place] [address] [facility], Floor L1 [place] [address] 07/29/2025 Procedure Pass [facility] Imaging Department, [facility] [place] [address] [facility], Floor L1 [place] [address] 07/31/2026 1:40 PM EDT Appointment [facility] Imaging Department, [facility] [place] [address] [facility], Floor [address]1 [place] [address] Danuta Patel MD [address] [place] [address] Agnes@[facility] 08/04/2026 10:30 AM EDT [facility], [address], 6th [place] [address] Danuta Patel MD [address] [place] [address] Agnes@[facility] documented as of this [...] documented as of this encounter Care Teams Distribution Sales Manager Relationship Specialty Start Date End Date Chiara Diggs MD [address] [place] [address] [place] [phone] PCP - General Internal Medicine 07/25/18 Joelle Grande MD, MS [address] [place] [address] JOSÉ MANUEL@[facility] Surgeon Surgical Oncology 08/15/18 Oly Karus MD, MPH [address] [place] [phone] Lolis@[email or web address] Primary Oncologist Radiation Oncology 08/15/18 Daryn Donohue MD [address] [place] [address] Referring Physician Urology 08/19/18 Savanna Banegas [address] [place] [address] NESTOR@[facility] Audio Visual Technician 08/19/18 Cris Aburto, [facility] [address] [place] [address] [email or web address] Accounting Clerks Supervisor 12/26/18 Arlin Cherry, [facility] [address] [place] [address] Maykel@[facility] Accounting Clerks Supervisor Oncology 07/26/19 Shun Schuster MD [email or web address] Primary Oncologist Medical Oncology 04/12/20 06/21/21 Jaspal Ordoñez MD [address] [place] [address] [email or web address] Palliative Care 12/22/20 Joelle Grande MD, MS [address] [place] [address] JOSÉ MANUEL@[facility] Surgical Oncology 03/07/21 Danuta Patel MD [address] [place] [address] Agnes@[email or web address] Medical Oncology 06/22/21 documented as of this encounter Additional Source Comments The information contained in this document represents components of the legal health record. It is not the complete legal health record.[facility]
--- OUTSIDE RECORDS SUMMARY | 2025-08-10 15:10 | XMS_ITS | Encounter Summary ---
Author Organization [facility] Address [address] [place] [address] Phone Care Team Providers Care Radiology Teacher Name Role Phone Chiara Diggs MD Primary Care Provider [phone] Joelle Grande MD, MS Unavailable Oly Kraus MD, MPH Unavailable Daryn Donohue MD Unavailable Savanna Banegas Unavailable Cris Aburto PLATE CORRECTOR Unavailable + [phone] Arlin Cherry PLATE CORRECTOR Unavailable [phone] Jaspal Ordoñez MD Unavailable Joelle Grande MD, MS Unavailable Danuta Patel MD Unavailable [phone] Encounter Details Date Type Department Care Team (Late st Contact Info) Description 04/10/2023 Procedure Pass [facility] Admitting Dept Virtual Department [address] [place] [address] Social History Tobacco Use Types [...] st Contact Info) Description 07/29/2025 Procedure Pass [facility] Imaging Department, [facility], [place] [address] [facility], Floor [address]1 [place] [address] 07/29/2025 Procedure Pass [facility] Imaging Department, [facility], [address], [address]1 [place] [address] 07/31/2026 1:40 PM EDT Appointment [facility] Imaging Department, [facility], [place] [address] [facility], Floor [address]1 [place] [address] Danuta Patel MD [address] [place] [address] Agnes@[facility] 08/04/2026 10:30 AM EDT [facility], [address], 6th [place] [address] Danuta Patel MD [address] [place] [address] Anges@[facility] documented as of this encounter Visit Diagnoses Not on filedocumented in this encounter Additional Health Concerns Assessment Noted Time PHQ-2 Depression Total Score: 0 11/12/19 20 1:45 PM EST documented as of this encounter Care Teams Radiology Teacher Relationship Specialty Start Date End Date Chiara Diggs MD [address] [place] [address] [place] [phone] PCP - General Internal Medicine 07/25/18 Joelle Grande MD, MS [address] [place] [address] JOSÉ MANUEL@[facility] Surgeon Surgical Oncology 08/15/18 Oly Kraus MD, MPH [address] [place] [address] Lolis@[email or web address] Primary Oncologist Radiation Oncology 08/15/18 Daryn Donohue MD [address] [place] [address] Referring Physician Urology 08/19/18 Savanna Banegas [address] [place] [address] NESTOR@[facility] Info Analyst 08/19/18 Cris Aburto, [facility] [address] [place] [address] [email or web address] Director Of Collections 12/26/18 Arlin Cherry, [facility] [address] [place] [address] Maykel@[facility] Director Of Collections Oncology 07/26/19 Jaspal Ordoñez MD [address] [place] [address] [email or web address] Palliative Care 12/22/20 Joelle Grande MD, MS [address] [place] [address] JOSÉ MANUEL@[email or web address] Surgical Oncology 03/07/21 Danuta Patel MD [address] [place] [address] Agnes@[email or web address] Medical Oncology 06/22/21 documented as of this encounter Additional Source Comments The information contained in this document represents components of the legal health record. It is not the complete legal health record.[facility]
--- OUTSIDE RECORDS SUMMARY | 2025-08-10 15:10 | XMS_ITS | Encounter Summary ---
Author Organization [facility] Address [address] [place] [address] Phone Care Team Providers Care Forensic Chemist Name Role Phone Chiara Diggs MD Primary Care Provider [phone] Joelle Grande MD, MS Unavailable Oly Kraus MD, MPH Unavailable Daryn Donohue MD Unavailable Savanna Banegas Unavailable Cris Aburto POTATO BUCKER Unavailable [phone] Arlin Cherry POTATO BUCKER Unavailable Jaspal Ordoñez MD Unavailable Joelle Grande MD, MS Unavailable Danuta Patel MD Unavailable [phone] Encounter Details Date Type Department Care Team (Late st Contact Info) Description 09/27/2022 Procedure Pass [facility], [facility] [place], [place] [address] [facility], Floor L1 [place] [address] Social History Tobacco Use Types Packs/Day Years [...] st Contact Info) Description 07/29/2025 Procedure Pass [facility] Imaging Department, [facility], [place] [address] [facility], Floor L1 [place] [address] 07/29/2025 Procedure Pass [facility] Imaging Department, [facility], [place] [address] [facility], Floor L1 [place] [address] 07/31/2026 1:40 PM EDT Appointment [facility] Imaging Department, [facility], [place] [address] [facility], Floor L1 [place] [address] Danuta Patel MD [address] [place] [address] Agnes@[facility] 08/04/2026 10:30 AM EDT [facility], [address], 6th [place] [address] Danuta Patel MD [address] [place] [address] Anges@[facility] documented as of this encounter Visit Diagnoses Not on filedocumented in this encounter Additional Health Concerns 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 02/28/2019 12/20/2022 1:[address] Assessment Noted Time PHQ-2 Depression Total Score: 0 11/12/19 1:45 PM EST documented as of this encounter Care Teams Forensic Chemist Relationship Specialty Start Date End Date Dontae Chiara Crandall MD [address] [place] [address] [address] [place] [phone] PCP - General Internal Medicine 07/25/18 Joelle Grande MD, MS [address] [place] [address] JOSÉ MANUEL@[facility] Surgeon Surgical Oncology 08/15/18 Oly Kraus MD, MPH [address] [place] [address] Lolis@[facility] Primary Oncologist Radiation Oncology 08/15/18 Daryn Donohue MD [address] [place] [address] Referring Physician Urology 08/19/18 Savanna Banegas [address] [place] [address] NESTOR@[facility] Vendor Representatives 08/19/18 Cris Aburto, [address] [address] [email or web address] Transformation Coach 12/26/18 Arlin Cherry, [address] [address] Maykel@[facility] Transformation Coach Oncology 07/26/19 Jaspal Ordoñez MD [address] [place] [address] [email or web address] Palliative Care 12/22/20 Joelle Grande MD, MS [address] [place] [address] JOSÉ MANUEL@[facility] Surgical Oncology 03/07/21 Danuta Patel MD [address] [place] [address] Agnes@[facility] Medical Oncology 06/22/21 documented as of this encounter Additional Source Comments The information contained in this document represents components of the legal health record. It is not the complete legal health record.[facility]
--- OUTSIDE RECORDS SUMMARY | 2025-08-10 15:10 | XMS_ITS | Encounter Summary ---
Author Organization [facility] Address [address] [place] [address] Phone Care Team Providers Care Electromechanical Equipment Assembler Name Role Phone Chiara Diggs MD Primary Care Provider [phone] Joelle Grande MD, MS Unavailable Oly Kraus MD, MPH Unavailable + [phone] Valerie Conti MD Unavailable [phone] Daryn Donohue MD Unavailable [phone] Savanna Banegas Unavailable Cris Aburto REJECT OPENER AND FILLER Unavailable [phone] Arlin Cherry REJECT OPENER AND FILLER Unavailable [phone] Shun Schuster MD Unavailable Portia [email or web address] Jaspal Pettit MD Unavailable Joelle Grande MD, MS Unavailable Danuta Patel MD Unavailable [phone] Encounter Details Date Type Department Care Team (Late st Contact Info) Description 04/07/2020 Procedure Pass [facility], [facility] [place], [place] [address] [facility], Floor [address]1 [place] [address] Social History Tobacco Use Types Packs/Day Years [...] st Contact Info) Description 07/29/2025 Procedure Pass [facility] Imaging Department, [facility], [place] [address] [facility], [facility] [address] [place] [address] 07/29/2025 Procedure Pass [facility] Imaging Department, [facility], [place] [address] [facility], [facility] [place] [address] 07/31/2026 1:40 PM EDT Appointment [facility] Imaging Department, [facility], [place] [address] [facility], [facility] [place] [address] Danuta Patel MD [address] [place] [address] Agnes@[facility] 08/04/2026 10:30 AM EDT [facility], [address], 6th [place] [address] Danuta Patel MD [address] [place] [address] Agnes@[facility] documented as of this encounter Visit Diagnoses [...] documented as of this encounter Care Teams Electromechanical Equipment Assembler Relationship Specialty Start Date End Date Chiara Diggs MD [address] [place] [address] [address] [place] [phone] PCP - General Internal Medicine 07/25/18 Joelle Grande MD, MS [address] [place] [address] JOSÉ MANUEL@[facility] Surgeon Surgical Oncology 08/15/18 Oly Kraus MD, MPH [address] [place] [address] Lolis@[facility] Primary Oncologist Radiation Oncology 08/15/18 Valerie Conti MD [address] [place] [phone] [email or web address] Primary Oncologist Medical Oncology 08/15/18 04/11/20 Daryn Donohue MD [address] [place] [address] Referring Physician Urology 08/19/18 Savanna Banegas [address] [place] [address] NESTOR@[facility] Warehouse Sorter 08/19/18 Cris Aburto, [facility] [address] [place] [address] [email or web address] [place] 12/26/18 Arlin Cherry, [address] [address] Maykel@[facility] [place] Oncology 07/26/19 Shun Schuster MD Rohan@[email or web address] Primary Oncologist Medical Oncology 04/12/20 06/21/21 Jaspal Ordoñez MD [address] [place] [address] [email or web address] Palliative Care 12/22/20 Joelle Grande MD, MS [address] [place] [address] JOSÉ MANUEL@[facility] Surgical Oncology 03/07/21 Danuta Patel MD [address] [place] [address] Agnes@[facility] Medical Oncology 06/22/21 documented as of this encounter Additional Source Comments The information contained in this document represents components of the legal health record. It is not the complete legal health record.[facility]
--- OUTSIDE RECORDS SUMMARY | 2025-08-10 15:10 | XMS_ITS | Clinical Summary ---
Author Organization [facility] Address [address] [place] [address] Phone Care Team Providers Care Electronic Commerce Specialist Name Role Phone Chiara Diggs MD Primary Care Provider [phone] Joelle Grande MD, MS Unavailable Oly Kraus MD, MPH Unavailable +- [phone] Daryn Donohue MD Unavailable [phone] Savanna Banegas Unavailable Cris Aburto HAND TRUCKER Unavailable + [phone] rAlin Cherry HAND TRUCKER Unavailable [phone] Jaspal Ordoñez MD Unavailable Joelle Grande MD, MS Unavailable Danuta Patel MD Unavailable [phone] Allergies Active Allergy Reactions Criticality Noted Date [...] PalliativeCa re-partial fill ok 56 tablet 5 07/21/20 25 Discontinu ed(Reorder ) HYDROcodone-brady taminophen (NORCO) 5-325 mg per tablet Take 1 tab q 4-6 hours prn pain, nte 4 tabs/day. PalliativeCa re-partial fill ok 56 tablet 5 07/29/20 25 Discontinu ed(Reorder ) Active Problems Patient [...] EGD showed esophagitis, acquired and extrinsic stenosis. Nunn (obtained d/t BRBPR) only w/ friable tissue [...] - Upon discharge please make appointment with [facility] Palliative Care clinic (known to [facility]) for further pain management, please call [phone] or requeste via the [employer] Work queue ([facility] Palliative Care) - [employer] In Basket messages can be sent to the Palliative Scheduling Pool - Patient lives far away from [facility], would benefit from making this apt [...] far. Recommendations: - continue Dilaudid 2-4mg po n1cdeac PRN pain. We continue to encourage her [...] is symptomatically ok. - will f/u with [facility] Surgical Oncology. 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, Floor [address] [place] [address] Danuta Patel MD Discharge Disposition: Home or Self Care 07/25/2025 11:30 AM EDT Infusion [facility] Imaging Department, [facility], Imaging [facility] [address] [facility], [address] [place] [address] Chiara Diggs MD 07/21/2025 Refill [facility] at [address] [address] Adrianna Le, electronic technologist Refill 06/23/2025 Refill [facility] Center at [address] [address] Adrianna Le, electronic technologist Refill 05/27/2025 Telephone [facility] Palliative Care [address] [place] [address] Jaspal Ordoñez MD 05/20/2025 Orders Only [facility] Palliative Care [address] [place] [address] Jaspal Ordoñez MD 07/02/2024 Procedure Pass [facility] Imaging Department, [facility], [place] [address] [facility], [address] [place] [address] 07/02/2024 [facility], [facility], [place] [address] [facility], [address] [place] [address] from Last 3 Months Family History Medical [...] 1 2:13 PM EST copied from previous DF encounter visit dated 08/21/19 Body Mass Index 22.7 11/17/2019 12:13 PM EST Plan of Treatment Upcoming Encounters Date Type Department Care Team (Late st Contact Info) Description 07/29/2025 Procedure Pass [facility] Imaging Department, [facility], [place] [address] [facility], [address] [place] [address] 07/29/2025 Procedure Pass [facility] Imaging Department, [facility], [place] [address] [facility], [address] [place] [address] 07/31/2026 1:40 PM EDT Appointment [facility] Imaging Department, [facility], [place] [address] [facility], [address] [place] [address] Danuta Patel MD [address] [place] [address] [email or web address] 08/04/2026 10:30 AM EDT Telemedicine [facility], [facility] [address], 6th [place] [address] Danuta Patel MD [address] [place] [address] [email or web address] Health Maintenance Due Date Last Done Comments HEPATITIS C SCREENING 1968 LIPID PANEL 1967 ZOSTER VACCINES (1 of 2) 1968 OSTEOPOROSIS SCREENING INITIAL (ONE-TIME) 2014 DIABETIC EYE EXAM 04/15/2019 URINE MICROALBUMIN/CREATININE RATIO 04/15/2019 HEMOGLOBIN A1C 08/06/2019 02/04/2019, 11/21/2018 DEPRESSION SCREENING 11/12/2020 11/12/2019 RSV VACCINE (1 - 1-dose 75+ series) 2024 INFLUENZA VACCINE (#1) 2025 , 10/04/2023, 09/14/2022, Additional history exists COVID-19 VACCINE ( season) 2025 08/14/2022, 09/16/2021, 02/14/2021, Additional history exists BLOOD PRESSURE 08/22/2025 02/20/2025 Adult Td,Tdap Booster 07/09/2035 07/09/2025 PNEUMOCOCCAL VACCINES (50+ years) Completed 09/14/2022, 01/08/2020 [...] Procedure Name Priority Date/Time Associated Diagnosis Comments CT ABDOMEN/PELVIS WITH CONTRAST Routine 07/25/2025 1:01 PM EDT Dedifferentiated liposarcoma CT CHEST WITH CONTRAST Routine 07/25/2025 1:01 PM EDT Dedifferentiated liposarcoma POCT CREATININE/EGFR Routine 07/25/2025 12:12 PM EDT HEMOGLOBIN A1C Routine 02/04/2019 8:07 AM EDT from Last 3 Months or Most Recently Relevant to Health Maintenance Results * CT CHEST WITH CONTRAST (07/25/2025 1:01 PM EDT) Anatomical Region Laterality Modality Chest Computed Tomogra phy Other 07/27/2025 11:0 2 AM EDT Impressions 07/27/2025 11:04 AM EDT 1. No evidence of metastatic disease within the chest. Narrative 07/27/2025 11:[address] CHEST WITH CONTRAST Referring clinician's provided indication for this examination in [facility]: Sarcoma re-evaluation TECHNIQUE: Multidetector CT of the chest was performed with intravenous contrast using tailored dose modulation techniques. COMPARISON: CT CHEST WITH CONTRAST FINDINGS: Devices/Tubes/Lines: None. Lungs: There is diffuse bronchial wall thickening, likely due to asthma or chronic bronchitis. No suspicious nodules are seen. The central airways are patent. Pleura: Normal. No pleural effusion or pneumothorax. Mediastinum: Normal heart size. No pericardial effusion. There are severe coronary calcifications. Dense mitral annular calcifications are noted as well. No central pulmonary embolism is seen. Lymph Nodes: Normal. No enlarged supraclavicular, axillary, mediastinal, or hilar lymph nodes. Upper Abdomen: Please see concurrent abdominal CT for abdominal findings. Chest Wall: Normal. No chest wall mass. Bones: No suspicious lytic or blastic lesions. Procedure Note Sharad Rush MD - 07/27/2025 CT CHEST WITH CONTRAST Referring clinician's provided indication for this examination in Epic:Sarcoma re-evaluation TECHNIQUE: Multidetector CT of the chest was performed with intravenouscontrast using tailored dose modulation techniques. COMPARISON: CT CHEST WITH CONTRAST FINDINGS: Devices/Tubes/Lines: None. Lungs: There is diffuse bronchial wall thickening, likely due to asthma orchronic bronchitis. No suspicious nodules are seen. The central airwaysare patent. Pleura: Normal. No pleural effusion or pneumothorax. Mediastinum: Normal heart size. No pericardial effusion. There are severecoronary calcifications. Dense mitral annular calcifications are noted aswell. No central pulmonary embolism is seen. Lymph Nodes: Normal. No enlarged supraclavicular, axillary, mediastinal,or hilar lymph nodes. Upper Abdomen: Please see concurrent abdominal CT for abdominalfindings. Chest Wall: Normal. No chest wall mass. Bones: No suspicious lytic or blastic lesions. IMPRESSION: 1. No evidence of metastatic disease within the chest. us Danuta Patel MD IMG CT CHEST Final Resu lt * CT ABDOMEN/PELVIS WITH CONTRAST (07/25/2025 1:01 PM EDT) Anatomical Region Laterality Modality Abdomen, Pelvis Computed Tomogra phy Other 07/25/2025 1:32 PM EDT Impressions 07/26/2025 9:[address] abdomen pelvis of 06/25/2024: 1. No evidence of metastatic disease in the abdomen or pelvis. 2. Progressive findings of chronic pancreatitis. 3. Marked diffuse fatty change of the liver, increased since prior study. 4. Gallstones. Narrative 07/26/2025 9:[address] ABDOMEN/PELVIS WITH CONTRAST Referring clinician's provided indication for this examination in Epic: Sarcoma re-evaluation TECHNIQUE: Multidetector-row CT of the abdomen and pelvis was performed after administration of intravenous contrast using tailored dose modulation techniques. Images were reconstructed in the axial, coronal, and sagittal planes. COMPARISON: CT abdomen pelvis 06/25/2024 FINDINGS: Lower Chest: CT chest from the same day is reported separately. Liver: Marked diffuse fatty change, significantly increased since prior study. No focal lesions. Biliary: Small gallstones (6:49). No biliary ductal dilatation. Spleen: Normal. No splenomegaly or focal lesions. Pancreas: Since prior study, there is increase in size of the main pancreatic duct stone in the head now measuring 9 mm (2:26) as well as increased pancreatic atrophy, upstream main ductal dilatation up to 8 mm (2:25) and numerous new punctate parenchymal calcifications. The constellation of findings suggest chronic pancreatitis. Adrenal Glands: Status post right adrenalectomy. Normal left adrenal. Kidneys/Ureters: Status post right nephroureterostomy. No solid masses, stones, or hydronephrosis. Bowel: Status post right hemicolectomy with ileocolic anastomosis. Status post gastrojejunostomy. No distention or wall thickening. Peritoneum/Retroperitoneum: Normal. No masses, pneumoperitoneum, or fluid. Lymph Nodes: Normal. No lymphadenopathy. Pelvic Organs/Bladder: Underdistended bladder. No mass. Vessels: Atherosclerotic calcifications of the abdominal aorta and its branches. No abdominal aortic aneurysm. Bones/Soft Tissues: Degenerative changes of the spine. Similar grade 1 anterolisthesis of L4 on L5. No destructive osseous lesions. Procedure Note Ruben Murcia MD - 07/26/2025 CT ABDOMEN/PELVIS WITH CONTRAST Referring clinician's provided indication for this examination in Epic:Sarcoma re-evaluation TECHNIQUE: Multidetector-row CT of the abdomen and pelvis was performedafter administration of intravenous contrast using tailored dosemodulation techniques. Images were reconstructed in the axial, coronal,and sagittal planes. COMPARISON: CT abdomen pelvis 06/25/2024 FINDINGS: Lower Chest: CT chest from the same day is reported separately. Liver: Marked diffuse fatty change, significantly increased since priorstudy. No focal lesions. Biliary: Small gallstones (6:49). No biliary ductal dilatation. Spleen: Normal. No splenomegaly or focal lesions. Pancreas: Since prior study, there is increase in size of the mainpancreatic duct stone in the head now measuring 9 mm (2:26) as well asincreased pancreatic atrophy, upstream main ductal dilatation up to 8 mm(2:25) and numerous new punctate parenchymal calcifications. Theconstellation of findings suggest chronic pancreatitis. Adrenal Glands: Status post right adrenalectomy. Normal left adrenal. Kidneys/Ureters: Status post right nephroureterostomy. No solid masses,stones, or hydronephrosis. Bowel: Status post right hemicolectomy with ileocolic anastomosis. Statuspost gastrojejunostomy. No distention or wall thickening. Peritoneum/Retroperitoneum: Normal. No masses, pneumoperitoneum, orfluid. Lymph Nodes: Normal. No lymphadenopathy. Pelvic Organs/Bladder: Underdistended bladder. No mass. Vessels: Atherosclerotic calcifications of the abdominal aorta and itsbranches. No abdominal aortic aneurysm. Bones/Soft Tissues: Degenerative changes of the spine. Similar grade 1anterolisthesis of L4 on L5. No destructive osseous lesions. IMPRESSION: Since CT abdomen pelvis of 06/25/2024: 1. No evidence of metastatic disease in the abdomen or pelvis. 2. Progressive findings of chronic pancreatitis. 3. Marked diffuse fatty change of the liver, increased since priorstudy. 4. Gallstones. Danuta Patel MD IMG CT ABD/PELVIS Final Re sult * (ABNORMAL) POCT Creatinine/eGFR (07/25/2025 12:12 PM EDT) Creatinine 1.30(H) 0.50 - 1.20 mg/dl [facility] EGFR 43(L) >59 mL/min/1.7 3m2 [facility] Comment:Estimated glomerular filtration rate calculated using the CKD-EPI refit equation. 07/25/2025 12:1 2 PM EDT 07/25/2025 12:14 PM EDT Chiara Diggs MD POINT OF CARE TEST ORDERABLES Final Result Performing Organization Address [facility] Co de Phone Number [facility] [address] [place] [address] * Hemoglobin A1c (02/04/2019 8:07 AM EDT) HEMOGLOBIN A1C 5.6 4.2 - 5.8 % [facility] CALC MEAN BLD GLUC 114 mg/dL [facility] Comment: There is no [...] 8:07 AM EDT 02/04/2019 8:27 AM EDT Mackenzie Lamas MD LAB BLOOD ORDERABLES Final Result [facility] [address] [address] from Last 3 Months or Most Recently Relevant to Health Maintenance Insurance MEDICARE PART A & B [employer] [facility] MEDICARE PART A & B [employer] [facility] MEDICARE PART A & B [employer] MEDICARE PART A & B [employer] MEDICARE PART A & B [facility] MEDICARE PART A & B [facility] MEDICARE PART A & B [facility] MEDICARE PART A & B [facility] MEDICARE PART A & B [facility] Advance Directives For more information, please contact: [phone] (9AM - 5PM [facility], Sunday-Sunday) Documents on File Type Date Recorded Patient Billet Straightener Expl anation Healthcare Proxy 11/26/2018 * Full [...] Agents on File Name Relationship Healthcare Agent Kemi zamora Communication Ron Patel Spouse .Primary Health Care Agent (Proxy form on file) Care Teams Electronic Commerce Specialist Relationship Specialty Start Date End Date Po, Chiara Crandall MD [address] [place] [address] [place] [phone] PCP - General Internal Medicine 07/25/18 Joelle Grande MD, MS [address] [place] [address] JOSÉ MANUEL@[email or web address] Surgeon Surgical Oncology 08/15/18 Oly Kraus MD, MPH [address] [place] [address] [email or web address] Primary Oncologist Radiation Oncology 08/15/18 Daryn Donohue MD [address] [place] [address] Referring Physician Urology 08/19/18 Savanna Banegas [address] [place] [address] NESTOR@[email or web address] Lathe Machinist 08/19/18 Cris Aburto, [facility] [address] [place] [address] [email or web address] Supervisor Underwriting Clerks 12/26/18 Arlin Cherry, [facility] [address] [place] [address] [email or web address] Supervisor Underwriting Clerks Oncology 07/26/19 Jaspal Ordoñez MD [address] [place] [address] Palliative Care 12/22/20 Joelle Grande MD, MS [address] [place] [address] JOSÉ MANUEL@[email or web address] Surgical Oncology 03/07/21 Danuta Patel MD [address] [place] [address] [email or web address] Medical Oncology 06/22/21 Additional Source Comments The information contained in this document represents components of the legal health record. It is not the complete legal health record.[facility]
--- OUTSIDE RECORDS SUMMARY | 2025-08-10 15:10 | XMS_ITS | Encounter Summary ---
Author Organization [facility] Address [address] [place] [address] Phone Care Team Providers Care Pharmaceutical Officer Name Role Phone Chiara Diggs MD Primary Care Provider [phone] Joelle Grande MD, MS Unavailable Oly Kraus MD, MPH Unavailable + [phone] Daryn Donohue MD Unavailable [phone] Savanna Banegas Unavailable Cris Aburto MOUNTER Unavailable [phone] Arlin Cherry MOUNTER Unavailable [phone] Shun Schuster MD Unavailable Portia [email or web address] Jaspal Pettit MD Unavailable Joelle Grande MD, MS Unavailable Danuta Patel MD Unavailable [phone] Encounter Details Date Type Department Care Team (Late st Contact Info) Description 12/22/2020 Procedure Pass [facility] Imaging [facility], [facility] [place], [place] [address] [facility], Floor [address] [place] [address] Social History Tobacco Use Types Packs/Day Years [...] st Contact Info) Description 07/29/2025 Procedure Pass [facility] Imaging Department, [facility], [place] [address] [facility], Floor [address] [place] [address] 07/29/2025 Procedure Pass [facility] Imaging Department, [facility], [place] [address] [facility], Floor [address] [place] [address] 07/31/2026 1:40 PM EDT Appointment [facility] Imaging Department, [facility], [place] [address] [facility], Floor [address] [place] [address] Danuta Patel MD [address] [place] [address] [email or web address] 08/04/2026 10:30 AM EDT Telemedicine [facility], [address], 6th [place] [address] Danuta Patel MD [address] [place] [address] [email or web address]@[email or web address] documented as of this encounter Visit [...] documented as of this encounter Care Teams Pharmaceutical Officer Relationship Specialty Start Date End Date Chiara Diggs MD [address] [place] [address] [address] [place] [phone] PCP - General Internal Medicine 07/25/18 Joelle Grande MD, MS [address] [place] [address] JOSÉ MANUEL@[facility] Surgeon Surgical Oncology 08/15/18 Oly Kraus MD, MPH [address] [place] [address] [email or web address] Primary Oncologist Radiation Oncology 08/15/18 Daryn Donohue MD [address] [place] [address] Referring Physician Urology 08/19/18 Savanna Banegas [address] [place] [address] [email or web address] Strategic Business Development 08/19/18 Cris Aburto, [address] [address] [email or web address] Orthotic Aide 12/26/18 Arlin Cherry, [facility] [address] [place] [address] Maykel@[email or web address] Orthotic Aide Oncology 07/26/19 Shun Schuster MD [email or web address] Primary Oncologist Medical Oncology 04/12/20 06/21/21 Jaspal Ordoñez MD [address] [place] [address] Palliative Care 12/22/20 Joelle Grande MD, MS [address] [place] [address] JOSÉ [email or web address] Surgical Oncology 03/07/21 Danuta Patel MD [address] [place] [address] [email or web address] Medical Oncology 06/22/21 documented as of this encounter Additional Source Comments The information contained in this document represents components of the legal health record. It is not the complete legal health record.[facility]
--- OUTSIDE RECORDS SUMMARY | 2025-08-10 15:11 | XMS_ITS | Encounter Summary ---
Author Organization [facility] Address [address] [place] [address] Phone Care Team Providers Care Car Barn Laborer Name Role Phone Chiara Diggs MD Primary Care Provider [phone] Joelle Grande MD, MS Unavailable Oly Kraus MD, MPH Unavailable + [phone] Valerie Conti MD Unavailable [phone] Daryn Donohue MD Unavailable [phone] Savanna Banegas Unavailable Sindy Isaacs WATER QUALITY ANALYST Unavailable [phone] Cris Aburto WATER QUALITY ANALYST Unavailable [phone] Arlin Cherry WATER QUALITY ANALYST Unavailable [phone] Shun Schuster MD Unavailable Portia [email or web address] Jaspal Pettit MD Unavailable Joelle Grande MD, MS Unavailable Danuta Patel MD Unavailable [phone] Encounter Details Date Type Department Care Team (Late st Contact Info) Description 02/04/2019 Procedure Pass [facility] [address] [place] [address] Social History Tobacco Use Types Packs/Day Years [...] st Contact Info) Description 07/29/2025 Procedure Pass [facility] Imaging Department, [facility], [place] [address] [facility], Floor [address] [place] [address] 07/29/2025 Procedure Pass [facility] Imaging Department, [facility], [place] [address] [facility], [address] [place] [address] 07/31/2026 1:40 PM EDT Appointment [facility] Imaging Department, [facility], [place] [address] [facility], [address] [place] [address] Danuta Patel MD [address] [place] [phone] [email or web address] 08/04/2026 10:30 AM EDT Telemedicine [facility], [facility] [address], [address]th [place] [address] Danuta Patel MD [address] [place] [address] [email or web address] documented as of this encounter [...] as of this encounter Care Teams Car Barn Laborer Relationship Specialty Start Date End Date Chiara Diggs MD [address] [place] [address] [address] [place] [phone] PCP - General Internal Medicine 07/25/18 Joelle Grande MD, MS [address] [place] [address] JOSÉ MANUEL@[email or web address] Surgeon Surgical Oncology 08/15/18 Oly Kraus MD, MPH [address] [place] [phone] [email or web address] Primary Oncologist Radiation Oncology 08/15/18 Valerie Conti MD [address] [place] [address] [email or web address] Primary Oncologist Medical Oncology 08/15/18 04/11/20 Daryn Donohue MD [address] [place] [address] Referring Physician Urology 08/19/18 Savanna Banegas [address] [place] [address] NESTOR@[email or web address] Deckhand Tuna Boat 08/19/18 Sindy Isaacs, [address] [address] [email or web address] Normalizer Oncology 09/16/18 07/25/19 Cris Aburto, [address] [address] [email or web address] Normalizer 12/26/18 Arlin Cherry, [address] [address] [email or web address] Normalizer Oncology 07/26/19 Shun Schuster MD Rohan@[email or web address] Primary Oncologist Medical Oncology 04/12/20 06/21/21 Jaspal Ordoñez MD [address] [address] [email or web address] Palliative Care 12/22/20 Joelle Grande MD, MS [address] [place] [address] JOSÉ MANUEL@[email or web address] Surgical Oncology 03/07/21 Danuta Patel MD [address] [place] [phone] [email or web address] Medical Oncology 06/22/21 documented as of this encounter Additional Source Comments The information contained in this document represents components of the legal health record. It is not the complete legal health record.[facility]
--- OUTSIDE RECORDS SUMMARY | 2025-08-10 15:11 | XMS_ITS | Encounter Summary ---
Author Organization [facility] Address [address] [place] [address] Phone Care Team Providers Care Client Manager Large Law Name Role Phone Chiara Diggs MD Primary Care Provider [phone] Joelle Grande MD, MS Unavailable Oly Kraus MD, MPH Unavailable + [phone] Valerie Conti MD Unavailable [phone] Daryn Donohue MD Unavailable [phone] Savanna Banegas Unavailable Sindy Isaacs PAVING FOREMAN Unavailable [phone] Cris Aburto PAVING FOREMAN Unavailable +[phone] Arlin Cherry PAVING FOREMAN Unavailable [phone] Shun Schuster MD Unavailable Portia [email or web address] Jaspal Pettit MD Unavailable Joelle Grande MD, MS Unavailable Danuta Patel MD Unavailable [phone] Encounter Details Date Type Department Care Team (Late st Contact Info) Description 08/15/2018 Procedure Pass [facility] [address] [place] [address] Social History Tobacco Use Types Packs/Day Years Used Date Smoking Tobacco: Former Cigarettes 0.3 2 1 962 - 7883 Smokeless Tobacco: Never Alcohol Use Standard Drinks/Week [...] Info) Description 07/29/2025 Procedure Pass [facility] Imaging Department, [facility], [place] [address] [facility], Floor [address]1 [place] [address] 07/29/2025 Procedure Pass [facility] Imaging Department, [facility] [place] [address] [facility], Floor [address] [place] [address] 07/31/2026 1:40 PM EDT Appointment [facility] Imaging Department, [facility] [place] [address] [facility], Floor [address] [place] [address] Danuta Patel MD [address] [place] [address] Agnes@[facility] 08/04/2026 10:30 AM EDT [facility], [address], 6th [place] [address] Danuta Patel MD [address] [place] [address] Agnes@[facility] documented as of this encounter Visit Diagnoses Not on filedocumented in this encounter Additional Health Concerns 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 02/28/2019 12/20/2022 1:[address] CoV-Presumed Comment:12/12: Symptom onset- fatigue, ST, cough, SOB 12/13: positive PCR outside lab (needs to be uploaded to [facility])- Yohana Noble RN 12/12/2021 12/13/2021 01/01/2022 1:[address] documented as of this encounter Care Teams Client Manager Large Law Relationship Specialty Start Date End Date Chiara Diggs MD [address] [place] [address] [address] [place] [phone] PCP - General Internal Medicine 07/25/18 Joelle Grande MD, MS [address] [place] [address] JOSÉ MANUEL@[facility] Surgeon Surgical Oncology 08/15/18 Oly Kraus MD, MPH [address] [place] [address] Lolis@[email or web address] Primary Oncologist Radiation Oncology 08/15/18 Valerie Conti MD [address] [place] [address] Mariusz@[email or web address] Primary Oncologist Medical Oncology 08/15/18 04/11/20 Daryn Donohue MD [address] [place] [address] Referring Physician Urology 08/19/18 Savanna Banegas [address] [place] [address] NESTOR@[facility] Psych Arnp 08/19/18 Sindy Isaacs, [address] [address] [email or web address]@[facility] Agriculture Research Director Oncology 09/16/18 07/25/19 Cris Aburto, [address] [address] [email or web address] Agriculture Research Director 12/26/18 Arlin Cherry, [address] [address] Maykel@[facility] Agriculture Research Director Oncology 07/26/19 Shun Schuster MD Rohan@[facility] Primary Oncologist Medical Oncology 04/12/20 06/21/21 Jaspal Ordoñez MD [address] [place] [address] [email or web address] Palliative Care 12/22/20 Joelle Grande MD, MS [address] [place] [address] JOSÉ MANUEL@[facility] Surgical Oncology 03/07/21 Danuta Patel MD [address] [place] [address] Agnes@[email or web address] Medical Oncology 06/22/21 documented as of this encounter Additional Source Comments The information contained in this document represents components of the legal health record. It is not the complete legal health record.[facility]
--- OUTSIDE RECORDS SUMMARY | 2025-08-10 15:11 | XMS_ITS | Encounter Summary ---
Author Organization [facility] Address [address] [place] [address] Phone Care Team Providers Care Php Consultant Name Role Phone Chiara Diggs MD Primary Care Provider [phone] Joelle Grande MD, MS Unavailable Oly Kraus MD, MPH Unavailable + [phone] Valerie Conti MD Unavailable +[phone] Daryn Donohue MD Unavailable [phone] Savanna Banegas Unavailable Sindy Isaacs FLIGHT OPERATIONS MANAGER Unavailable [phone] Cris Aburto FLIGHT OPERATIONS MANAGER Unavailable [phone] Arlin Cherry FLIGHT OPERATIONS MANAGER Unavailable [phone] Shun Schuster MD Unavailable Portia [email or web address] Jaspal Pettit MD Unavailable Joelle Grande MD, MS Unavailable Danuta Patel MD Unavailable [phone] Encounter Details Date Type Department Care Team (Late st Contact Info) Description 02/19/2019 Procedure Pass [facility] Endoscopy Department [address] [place] [address] Social History Tobacco Use Types Packs/Day Years [...] Upcoming Encounters Date Type Department Care Team ([facility] st Contact Info) Description 07/29/2025 Procedure Pass [facility] Imaging Department, [facility], [place] [address] [facility], Floor [address]1 [place] [address] 07/29/2025 Procedure Pass [facility] Imaging Department, [facility], [place] [address] [facility], [address] [place] [address] 07/31/2026 1:40 PM EDT Appointment [facility] Imaging Department, [facility], [place] [address] [facility], [address] [place] [address] Danuta Patel MD [address] [place] [address] Agnes@[facility] 08/04/2026 10:30 AM EDT [facility], [address], 6th [place] [address] Danuta Patel MD [address] [place] [address] Agnes@[facility] documented as of [...] documented as of this encounter Care Teams Php Consultant Relationship Specialty Start Date End Date Dontae, Chiara Crandall MD [address] [place] [address] Drive [address] [place] [address] [phone] PCP - General Internal Medicine 07/25/18 Joelle Grande MD, MS [address] [place] [address] JOSÉ MANUEL@[facility] Surgeon Surgical Oncology 08/15/18 Oly Kraus MD, MPH [address] [place] [address] Lolis@[facility] Primary Oncologist Radiation Oncology 08/15/18 Valerie Conti MD [address] [place] [address] Mariusz@[facility] Primary Oncologist Medical Oncology 08/15/18 04/11/20 Daryn Donohue MD [address] [place] [address] Referring Physician Urology 08/19/18 Savanna Banegas [address] [place] [address] NESTOR@[email or web address] Home Office Claims Examiner 08/19/18 Sindy Isaacs, [address] [address] Gregorio@[facility] Enterprise Sales Person Oncology 09/16/18 07/25/19 Cris Aburto, [address] [address] [email or web address] Enterprise Sales Person 12/26/18 Arlin Cherry, [address] [address] Maykel@[facility] Enterprise Sales Person Oncology 07/26/19 Shun Schuster MD Rohan@[email or web address] Primary Oncologist Medical Oncology 04/12/20 06/21/21 Jaspal Ordoñez MD [address] [place] [address] [email or web address] Palliative Care 12/22/20 Joelle Grande MD, MS [address] [place] [address] JOSÉ MANUEL@[facility] Surgical Oncology 03/07/21 Danuta Patel MD [address] [place] [address] Agnes@[facility] Medical Oncology 06/22/21 documented as of this encounter Additional Source Comments The information contained in this document represents components of the legal health record. It is not the complete legal health record.[facility]
--- OUTSIDE RECORDS SUMMARY | 2025-08-10 15:11 | XMS_ITS | Encounter Summary ---
Author Organization [facility] Address [address] [place] [address] Phone Care Team Providers Care Bench Chemist Name Role Phone Chiara Diggs MD Primary Care Provider [phone] Joelle Grande MD, MS Unavailable Oly Kraus MD, MPH Unavailable + [phone] Daryn Donohue MD Unavailable Savanna Banegas Unavailable Cris Aburto BOBTAIL DRIVER Unavailable + [phone] Arlin Cherry BOBTAIL DRIVER Unavailable [phone] Jaspal Ordoñez MD Unavailable Joelle Grande MD, MS Unavailable Danuta Patel MD Unavailable [phone] Encounter Details Date Type Department Care Team (Late st Contact Info) Description 06/22/2021 Procedure Pass [facility] [address] [place] [address] Social History Tobacco Use Types Packs/Day Years [...] Contact Info) Description 07/29/2025 Procedure Pass [facility] Imaging Department, [facility], [place] [address] [facility], Floor [address] [place] [address] 07/29/2025 Procedure Pass [facility] Imaging Department, [facility], [place] [address] [facility], [address] [place] [address] 07/31/2026 1:40 PM EDT Appointment [facility] Imaging Department, 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 02/28/2019 12/20/2022 1:[address] CoV-Presumed Comment:12/12: Symptom onset- fatigue, ST, cough, SOB 12/13: positive PCR outside lab (needs to be uploaded to [facility])- Yohana Nbole RN 12/12/2021 12/13/2021 01/01/2022 1:[address] Assessment Noted Time PHQ-2 Depression Total Score: 0 11/12/19 1:45 PM EST documented as of this encounter Care Teams Bench Chemist Relationship Specialty Start Date End Date Chiara Diggs MD [address] [place] [address] [address] [place] [phone] PCP - General Internal Medicine 07/25/18 Joelle Grande MD, MS [address] [place] [address] JOSÉ MANUEL@[facility] Surgeon Surgical Oncology 08/15/18 Oly Kraus MD, MPH [address] [place] [address] Lolis@[email or web address] Primary Oncologist Radiation Oncology 08/15/18 Daryn Donhoue MD [address] [place] [address] Referring Physician Urology 08/19/18 Savanna Banegas [address] [place] [address] NESTOR@[facility] Well Driller 08/19/18 Cris Aburto, [address] [address] [email or web address] Field Service Tech 12/26/18 Arlin Cherry, [facility] [address] [place] [address] Maykel@[facility] Field Service Tech Oncology 07/26/19 Jaspal Ordoñez MD [address] [place] [address] [email or web address] Palliative Care 12/22/20 Joelle Grande MD, MS [address] [place] [address] JOSÉ MANUEL@[email or web address] Surgical Oncology 03/07/21 Danuta Patel MD [address] [place] [address] [email or web address] Medical Oncology 06/22/21 documented as of this encounter Additional Source Comments The information contained in this document represents components of the legal health record. It is not the complete legal health record.[facility]
--- OUTSIDE RECORDS SUMMARY | 2025-08-10 15:11 | XMS_ITS | Encounter Summary ---
Author Organization [facility] Address [address] [place] [address] Phone Care Team Providers Care Facilities Maintenance Assistant Name Role Phone Chiara Diggs MD Primary Care Provider [phone] Joelle Grande MD, MS Unavailable Oly Kraus MD, MPH Unavailable + [phone] Daryn Donohue MD Unavailable Savanna Banegas Unavailable Cris Aburto FREIGHT SALES BROKER Unavailable + [phone] Arlin Cherry FREIGHT SALES BROKER Unavailable [phone] Jaspal Ordoñez MD Unavailable Joelle Grande MD, MS Unavailable Danuta Patel MD Unavailable [phone] Encounter Details Date Type Department Care Team (Late st Contact Info) Description 04/25/2023 Procedure Pass [facility] [address] [place] [address] Social History Tobacco Use Types Packs/Day Years [...] st Contact Info) Description 07/29/2025 Procedure Pass [facility] Imaging Department, [facility], [place] [address] [facility], Floor [address]1 [place] [address] 07/29/2025 Procedure Pass [facility] Imaging Department, [facility] [place] [address] [facility], [address] [place] [address] 07/31/2026 1:40 PM EDT Appointment [facility] Imaging Department, [facility], [place] [address] [facility], [address] [place] [address] Danuta Patel MD [address] [place] [address] Agnes@[facility] 08/04/2026 10:30 AM EDT [facility], [address], 6th [place] [address] Danuta Patel MD [address] [place] [address] Agnes@[facility] documented as of this encounter Visit Diagnoses Not on filedocumented in this encounter Additional Health Concerns Assessment Noted Time PHQ-2 Depression Total Score: 0 11/12/19 20 1:45 PM EST documented as of this encounter Care Teams Facilities Maintenance Assistant Relationship Specialty Start Date End Date Chiara Diggs MD [address] [place] [address] [place] [phone] PCP - General Internal Medicine 07/25/18 Joelle Grande MD, MS [address] [place] [address] JOSÉ MANUEL@[facility] Surgeon Surgical Oncology 08/15/18 Oly Kraus MD, MPH [address] [place] [address] Lolis@[email or web address] Primary Oncologist Radiation Oncology 08/15/18 Daryn Donohue MD [address] [place] [address] Referring Physician Urology 08/19/18 Savanna Banegas [address] [place] [address] NESTOR@[facility] Sausage Tier 08/19/18 Cris Aburto, [address] [address] [email or web address] Russian History Professor 12/26/18 Arlin Cherry, [address] [address] Maykel@[facility] Russian History Professor Oncology 07/26/19 Jaspal Ordoñez MD [address] [place] [address] [email or web address] Palliative Care 12/22/20 Joelle Grande MD, MS [address] [place] [address] JOSÉ MANUEL@[email or web address] Surgical Oncology 03/07/21 Danuta Patel MD [address] [place] [address] Agnes@[email or web address] Medical Oncology 06/22/21 documented as of this encounter Additional Source Comments The information contained in this document represents components of the legal health record. It is not the complete legal health record.[facility]
--- OUTSIDE RECORDS SUMMARY | 2025-08-10 15:11 | XMS_ITS | Encounter Summary ---
Author Organization [facility] Address [address] [place] [address] Phone Care Team Providers Care Inspector General Name Role Phone Chiara Diggs MD Primary Care Provider [phone] Joelle Grande MD, MS Unavailable Oly Kraus MD, MPH Unavailable + [phone] Valerie Conti MD Unavailable [phone] Daryn Donohue MD Unavailable [phone] Savanna Banegas Unavailable Sindy Isaacs ACCOUNT SUPPORT ANALYST Unavailable [phone] Cris Aburto ACCOUNT SUPPORT ANALYST Unavailable [phone] Arlin Cherry ACCOUNT SUPPORT ANALYST Unavailable [phone] Shun Schuster MD Unavailable Portia [email or web address] Jaspal Pettit MD Unavailable Joelle Grande MD, MS Unavailable Danuta Patel MD Unavailable [phone] Encounter Details Date Type Department Care Team (Late st Contact Info) Description 08/15/2018 Procedure Pass [facility] [address] [place] [address] Social History Tobacco Use Types Packs/Day Years Used Date Smoking Tobacco: Former Cigarettes 0.3 2 1 962 - 1358 Smokeless Tobacco: Never Alcohol Use Standard Drinks/Week [...] st Contact Info) Description 07/29/2025 Procedure Pass [facility] Imaging Department, [facility], [place] [address] [facility], Floor [address] [place] [address] 07/29/2025 Procedure Pass [facility] Imaging Department, [facility] [place] [address] [facility], [address] [place] [address] 07/31/2026 1:40 PM EDT Appointment [facility] Imaging Department, [facility], [place] [address] [facility], [address] [place] [address] Danuta Patel MD [address] [place] [address] Agnes@[facility] 08/04/2026 10:30 AM EDT [facility], [address], 6th [place] [address] Danuta Patel MD [address] [place] [address] Agnes@[facility] documented as of this encounter Visit Diagnoses Not on filedocumented in this encounter Additional Health Concerns 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 02/28/2019 12/20/2022 1:[address] CoV-Presumed Comment:12/12: Symptom onset- fatigue, ST, cough, SOB 12/13: positive PCR outside lab (needs to be uploaded to [facility])- Yohana Noble RN 12/12/2021 12/13/2021 01/01/2022 1:[address] documented as of this encounter Care Teams Inspector General Relationship Specialty Start Date End Date Chiara Diggs MD [address] [place] [address] Drive [address] [place] [phone] PCP - General Internal Medicine 07/25/18 Joelle Grande MD, MS [address] [place] [address] JOSÉ MANUEL@[facility] Surgeon Surgical Oncology 08/15/18 Oly Kraus MD, MPH [address] [place] [address] Lolis@[facility] Primary Oncologist Radiation Oncology 08/15/18 Valerie Conti MD [address] [place] [address] Mariusz@[facility] Primary Oncologist Medical Oncology 08/15/18 04/11/20 Daryn Donohue MD [address] [place] [address] Referring Physician Urology 08/19/18 Savanna Banegas [address] [place] [address] NESTOR@[facility] Wool Puller 08/19/18 Sindy Isaacs, [address] [address] [email or web address]@[facility] Packing And Stamping Machine Operator Oncology 09/16/18 07/25/19 Cris Aburto, [address] [address] delvin@[email or web address] Packing And Stamping Machine Operator 12/26/18 Arlin Cherry, [address] [address] Maykel@[facility] Packing And Stamping Machine Operator Oncology 07/26/19 Shun Schuster MD Rohan@[email or web address] Primary Oncologist Medical Oncology 04/12/20 06/21/21 Jaspal Ordoñez MD [address] [place] [address] [email or web address] Palliative Care 12/22/20 Joelle Grande MD, MS [address] [place] [address] JOSÉ MANUEL@[facility] Surgical Oncology 03/07/21 Danuta Patel MD [address] [place] [address] Agnes@[facility] Medical Oncology 06/22/21 documented as of this encounter Additional Source Comments The information contained in this document represents components of the legal health record. It is not the complete legal health record.[facility]
--- OUTSIDE RECORDS SUMMARY | 2025-08-10 15:11 | XMS_ITS | Encounter Summary ---
Author Organization [facility] Address [address] [place] [address] Phone Care Team Providers Care Ceo Name Role Phone Chiara Diggs MD Primary Care Provider [phone] Joelle Grande MD, MS Unavailable Oly Kraus MD, MPH Unavailable + [phone] Daryn Donohue MD Unavailable [phone] Savanna Banegas Unavailable Cris Aburto SASH STICKER Unavailable + [phone] Arlin Cherry SASH STICKER Unavailable [phone] Jaspal Ordoñez MD Unavailable Joelle Grande MD, MS Unavailable Danuta Patel MD Unavailable [phone] Encounter Details Date Type Department Care Team (Late st Contact Info) Description 04/25/2023 Procedure Pass [facility] [address] [place] [address] Social History Tobacco Use Types Packs/Day Years [...] st Contact Info) Description 07/29/2025 Procedure Pass [facility] Imaging Department, [facility] [place] [address] [facility], Floor [address] [place] [address] 07/29/2025 Procedure Pass [facility] Imaging Department, [facility] [place] [address] [facility], [address] [place] [address] 07/31/2026 1:40 PM EDT Appointment [facility] Imaging Department, [facility] [place] [address] [facility], [address] [place] [address] Danuta Patel MD [address] [place] [address] Agnes@[facility] 08/04/2026 10:30 AM EDT [facility], [address], 6th [place] [address] Danuta Patel MD [address] [place] [address] Agnes@[facility] documented as of this encounter Visit Diagnoses Not on filedocumented in this encounter Additional Health Concerns Assessment Noted Time PHQ-2 Depression Total Score: 0 11/12/19 20 1:45 PM EST documented as of this encounter Care Teams Ceo Relationship Specialty Start Date End Date Chiara Diggs MD [address] [place] [address] [place] [phone] PCP - General Internal Medicine 07/25/18 Joelle Grande MD, MS [address] [place] [address] JOSÉ MANUEL@[facility] Surgeon Surgical Oncology 08/15/18 Oly Kraus MD, MPH [address] [place] [address] [email or web address] Primary Oncologist Radiation Oncology 08/15/18 Daryn Donohue MD [address] [place] [address] Referring Physician Urology 08/19/18 Savanna Banegas [address] [place] [address] NESTOR@[email or web address] Journeyman Pipe Welder 08/19/18 Cris Aburto, [address] [address] [email or web address] Padder 12/26/18 Arlin Cherry, [address] [address] Maykel@[facility] Padder Oncology 07/26/19 Jaspal Ordoñez MD [address] [place] [address] [email or web address] Palliative Care 12/22/20 Joelle Grande MD, MS [address] [place] [address] JOSÉ MANUEL@[email or web address] Surgical Oncology 03/07/21 Danuta Patel MD [address] [place] [address] [email or web address] Medical Oncology 06/22/21 documented as of this encounter Additional Source Comments The information contained in this document represents components of the legal health record. It is not the complete legal health record.[facility]
--- OUTSIDE RECORDS SUMMARY | 2025-08-10 15:11 | XMS_ITS | Encounter Summary ---
Author Organization [facility] Address [address] [place] [address] Phone Care Team Providers Care Distance Learning Unit Leader Name Role Phone Chiara Diggs MD Primary Care Provider [phone] Joelle Grande MD, MS Unavailable Oly Kraus MD, MPH Unavailable + [phone] Valerie Conti MD Unavailable [phone] Daryn Donohue MD Unavailable [phone] Savanna Banegas Unavailable Sindy Isaacs GENERATION ENGINEERING TECHNOLOGIST Unavailable [phone] Cris Aburto GENERATION ENGINEERING TECHNOLOGIST Unavailable [phone] Arlin Cherry GENERATION ENGINEERING TECHNOLOGIST Unavailable [phone] Shun Schuster MD Unavailable Portia [email or web address] Jaspal Pettit MD Unavailable Joelle Grande MD, MS Unavailable Danuta Patel MD Unavailable [phone] Encounter Details Date Type Department Care Team (Late st Contact Info) Description 02/10/2019 Procedure Pass [facility] Endoscopy Department [address] [place] [address] Social History Tobacco Use Types Packs/Day Years [...] Upcoming Encounters Date Type Department Care Team ([facility] st Contact Info) Description 07/29/2025 Procedure Pass [facility] Imaging Department, [facility], [place] [address] [facility], Floor [address]1 [place] [address] 07/29/2025 Procedure Pass [facility] Imaging Department, [facility] [place] [address] [facility], [address] [place] [address] 07/31/2026 1:40 PM EDT Appointment [facility] Imaging Department, [facility] [place] [address] [facility], [address] [place] [address] Danuta Patel MD [address] [place] [address] Agnes@[facility] 08/04/2026 10:30 AM EDT [facility], [address], 6th [place] [address] Danuta Patel MD [address] [place] [address] [email or web address]@[email or web address] documented as of this encounter Visit [...] documented as of this encounter Care Teams Distance Learning Unit Leader Relationship Specialty Start Date End Date Dontae, Chiara Crandall MD [address] [place] [address] [address] [place] [phone] PCP - General Internal Medicine 07/25/18 Joelle Grande MD, MS [address] [place] [address] JOSÉ MANUEL@[facility] Surgeon Surgical Oncology 08/15/18 Oly Kraus MD, MPH [address] [place] [address] Lolis@[facility] Primary Oncologist Radiation Oncology 08/15/18 Valerie Conti MD [address] [place] [address] Mariusz@[email or web address] Primary Oncologist Medical Oncology 08/15/18 04/11/20 Daryn Donohue MD [address] [place] [address] Referring Physician Urology 08/19/18 Savanna Banegas [address] [place] [address] [email or web address] Contract Attorney 08/19/18 Sindy Isaacs, [address] [address] [email or web address] Supervisor Testing Oncology 09/16/18 07/25/19 Cris Aburto, [address] [address] [email or web address] Supervisor Testing 12/26/18 Arlin Cherry, [address] [address] Maykel@[facility] Supervisor Testing Oncology 07/26/19 Shun Schuster MD Rohan@[email or web address] Primary Oncologist Medical Oncology 04/12/20 06/21/21 Jaspal Ordoñez MD [address] [place] [address] [email or web address] Palliative Care 12/22/20 Joelle Grande MD, MS [address] [place] [address] JOSÉ MANUEL@[facility] Surgical Oncology 03/07/21 Danuta Patel MD [address] [place] [address] Agnes@[facility] Medical Oncology 06/22/21 documented as of this encounter Additional Source Comments The information contained in this document represents components of the legal health record. It is not the complete legal health record.[facility]
--- OUTSIDE RECORDS SUMMARY | 2025-08-10 15:11 | XMS_ITS | Encounter Summary ---
Author Organization [facility] Address [address] [place] [address] Phone Care Team Providers Care General Merchandise Manager Name Role Phone Chiara Diggs MD Primary Care Provider [phone] Joelle Grande MD, MS Unavailable Oly Kraus MD, MPH Unavailable + [phone] Valerie Conti MD Unavailable [phone] Daryn Donohue MD Unavailable [phone] Savanna Banegas Unavailable Sindy Isaacs ROLL PLUGGER MACHINE OPERATOR Unavailable [phone] Cris Aburto ROLL PLUGGER MACHINE OPERATOR Unavailable [phone] Arlin Cherry ROLL PLUGGER MACHINE OPERATOR Unavailable [phone] Shun Schuster MD Unavailable Portia [email or web address] Jaspal Pettit MD Unavailable Joelle Grande MD, MS Unavailable Danuta Patel MD Unavailable [phone] Reason for Referral * MRI/CAT Scan - Closed Specialty Diagnoses / Procedures Referred By Contac t Referred To Contact Procedures MRI Abdomen Outside (No Interpretation) Donnie Moore MD Phone: tel: fax: mailto:[email or web address] Referral ID Status Reason Start Date Expiration Date Visits Re quested Visits Authorized [id number] Closed 08/15/2018 08/15/2019 1 1 * MRI/CAT Scan - Closed Specialty Diagnoses / Procedures Referred By Contac t Referred To Contact Procedures MRI Spine (Neuro) Outside (No Interpretation) Donnie Moore MD Phone: tel: fax: mailto:[email or web address] Referral ID Status Reason Start Date Expiration Date Visits Re quested Visits Authorized [id number] Closed 08/15/2018 08/15/2019 1 1 * MRI/CAT Scan - Closed Specialty Diagnoses / Procedures Referred By Contac t Referred To Contact Procedures MRI Abdomen Outside (No Interpretation) Donnie Moore MD Phone: tel: fax: mailto:[email or web address] Referral ID Status Reason Start Date Expiration Date Visits Re quested Visits Authorized [id number] Closed 08/15/2018 08/15/2019 1 1 * MRI/CAT Scan - Closed Specialty Diagnoses / Procedures Referred By Contac t Referred To Contact Procedures CT Abdomen/Pelvis Outside (No Interpretation) Donnie Moore MD Phone: tel: fax: mailto:[email or web address] Referral ID Status Reason Start Date Expiration Date Visits Re quested Visits Authorized [id number] Closed 08/15/2018 08/15/2019 1 1 Encounter Details Date Type Department Care Team (Late st Contact Info) Description 08/15/2018 Transcribe Orders [facility] [address] [place] [address] Samina Zaragoza [address] [place] [address] ROSE@[email or web address] Social History Tobacco Use Types Packs/Day [...] Info) Description 07/29/2025 Procedure Pass [facility] Imaging Department, [facility] [place] [address] [facility], Floor [address] [place] [address] 07/29/2025 Procedure Pass [facility] Imaging Department, [facility] [place] [address] [facility], [address] [place] [address] 07/31/2026 1:40 PM EDT Appointment [facility] Imaging Department, [facility] [place] [address] [facility], [address] [place] [address] Danuta Patel MD [address] [place] [address] Agnes@[facility] 08/04/2026 10:30 AM EDT [facility], [facility] [address], 6th [place] [address] Danuta Patel MD [address] [place] [address] [email or web address] documented as of this encounter Results * MRI Abdomen Outside (No Interpretation) (08/15/2018 1:15 AM EDT) Narrative PERCIPIO_BW - 08/15/2018 11:02 AM EDT This study is for PACS storage only and not for interpretation. us Donnie Moore MD IMG OUTSIDE IMAGING W/OUT INT ERPRETATION Final Result Performing Organization Address [facility] de Phone Number PERCIPIO_BWH * XR SPINE OUTSIDE(NO INTERPRETATION) (08/15/2018 1:00 AM EDT) Narrative PERCIPIO_BW - 08/15/2018 11:02 AM EDT This study is for PACS storage only and not for interpretation. us Donnie Moore MD IMG OUTSIDE IMAGING W/OUT INT ERPRETATION Final Result Performing Organization Address [facility] de Phone Number PERCIPIO_BWH * MRI Spine (Neuro) Outside (No Interpretation) (08/15/2018 12:45 AM EDT) Narrative PERCIPIO_BW - 08/15/2018 11:02 AM EDT This study is for PACS storage only and not for interpretation. us Donnie Moore MD IMG OUTSIDE IMAGING W/OUT INT ERPRETATION Final Result Performing Organization Address [facility] de Phone Number PERCIPIO_BWH * US Abdomen Outside (No Interpretation) (08/15/2018 12:30 AM EDT) Narrative PERCIPIO_BW - 08/15/2018 11:02 AM EDT This study is for PACS storage only and not for interpretation. us Donnie Moore MD IMG OUTSIDE IMAGING W/OUT INT ERPRETATION Final Result Performing Organization Address [facility] Co de Phone Number PERCIPIO_BWH * MRI [...] outside lab (needs to be uploaded to [employer])- Yohana Noble RN 12/12/2021 12/13/2021 01/01/2022 1:[address] documented as of this encounter Care Teams General Merchandise Manager Relationship Specialty Start Date End Date Chiara Diggs MD [address] [place] [address] [address] [place] [phone] PCP - General Internal Medicine 07/25/18 Joelle Grande MD, MS [address] [place] [address] JOSÉ [email or web address] Surgeon Surgical Oncology 08/15/18 Oly Kraus MD, MPH [address] [place] [address] Lolis@[facility] Primary Oncologist Radiation Oncology 08/15/18 Valerie Conti MD [address] [place] [address] Mariusz@[facility] Primary Oncologist Medical Oncology 08/15/18 04/11/20 Daryn Donohue MD [address] [place] [address] Referring Physician Urology 08/19/18 Savanna Banegas [address] [place] [address] NESTOR@[facility] Coding Technician 08/19/18 Sindy Isaacs, [address] [address] Gregorio@[facility] Shipboard Intelligence Analyst Oncology 09/16/18 07/25/19 Cris Aburto, [address] [address] [email or web address] Shipboard Intelligence Analyst 12/26/18 Arlin Cherry, [address] [address] Maykel@[facility] Shipboard Intelligence Analyst Oncology 07/26/19 Shun Schuster MD Rohan@[facility] Primary Oncologist Medical Oncology 04/12/20 06/21/21 Jaspal Ordoñez MD [address] [place] [address] Palliative Care 2/17/21 Joelle Grande MD, MS [address] [place] [address] JOSÉ MANUEL@[email or web address] Surgical Oncology 03/07/21 Danuta Patel MD [address] [place] [address] [email or web address] Medical Oncology 06/22/21 documented as of this encounter Additional Source Comments The information contained in this document represents components of the legal health record. It is not the complete legal health record.[facility]
--- OUTSIDE RECORDS SUMMARY | 2025-08-10 15:11 | XMS_ITS | Encounter Summary ---
Author Organization [facility] Address [address] [place] [address] Phone Care Team Providers Care Program Manager Transportation Name Role Phone Chiara Diggs MD Primary Care Provider [phone] Joelle Grande MD, MS Unavailable Oly Kraus MD, MPH Unavailable + [phone] Daryn Donohue MD Unavailable Savanna Banegas Unavailable Cris Aburto HOME CONNECT LPN Unavailable + [phone] Arlin Cherry HOME CONNECT LPN Unavailable [phone] Jaspal Ordoñez MD Unavailable Joelle Grande MD, MS Unavailable Danuta Patel MD Unavailable [phone] Encounter Details Date Type Department Care Team (Late st Contact Info) Description 06/22/2021 Procedure Pass [facility] [address] [place] [address] Social History Tobacco Use Types Packs/Day Years [...] st Contact Info) Description 07/29/2025 Procedure Pass [facility] Imaging Department, [facility], [place] [address] [facility], [address] [place] [address] 07/29/2025 Procedure Pass [facility] Imaging Department, [facility] [place] [address] [facility], [address] [place] [address] 07/31/2026 1:40 PM EDT Appointment [facility] Imaging Department, [facility] [place] [address] [facility], [address] [place] [address] Danuta Patel MD [address] [place] [address] Agnes@[facility] 08/04/2026 10:30 AM EDT [facility], [address], 6th [place] [address] Danuta Patel MD [address] [place] [address] Agnes@[facility] documented as of this encounter Visit Diagnoses Not on filedocumented in this encounter Additional Health Concerns 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 02/28/2019 12/20/2022 1:[address] CoV-Presumed Comment:12/12: Symptom onset- fatigue, ST, cough, SOB 12/13: positive PCR outside lab (needs to be uploaded to [facility])- Yohana Noble RN 12/12/2021 12/13/2021 01/01/2022 1:[address] Assessment Noted Time PHQ-2 Depression Total Score: 0 11/12/19 1:45 PM EST documented as of this encounter Care Teams Program Manager Transportation Relationship Specialty Start Date End Date Chiara Diggs MD [address] [place] [address] [address] [place] [phone] PCP - General Internal Medicine 07/25/18 Joelle Grande MD, MS [address] [place] [address] JOSÉ MANUEL@[facility] Surgeon Surgical Oncology 08/15/18 Oly Kraus MD, MPH [address] [place] [address] [email or web address] Primary Oncologist Radiation Oncology 08/15/18 Daryn Donohue MD [address] [place] [address] Referring Physician Urology 08/19/18 Savanna Banegas [address] [place] [address] NESTOR@[facility] Metal Fabricating Inspector 08/19/18 Cris Aburto, [address] [address] [email or web address] Labor/Excavator 12/26/18 Arlin Cherry, [facility] [address] [place] [address] Maykel@[facility] Labor/Excavator Oncology 07/26/19 Jaspal Ordoñez MD [address] [place] [address] [email or web address] Palliative Care 12/22/20 Joelle Grande MD, MS [address] [place] [address] JOSÉ MANUEL@[email or web address] Surgical Oncology 03/07/21 Danuta Patel MD [address] [place] [address] [email or web address] Medical Oncology 06/22/21 documented as of this encounter Additional Source Comments The information contained in this document represents components of the legal health record. It is not the complete legal health record.[facility]
--- OUTSIDE RECORDS SUMMARY | 2025-08-10 15:11 | XMS_ITS | Encounter Summary ---
Author Organization [facility] Address [address] [place] [address] Phone Care Team Providers Care Fitness Centre Manager Name Role Phone Chiara Diggs MD Primary Care Provider [phone] Joelle Grande MD, MS Unavailable Oly Kraus MD, MPH Unavailable + [phone] Valerie Conti MD Unavailable [phone] Daryn Donohue MD Unavailable [phone] Savanna Banegas Unavailable Sindy Isaacs CLINICAL ANALYST Unavailable [phone] Crsi Aburto CLINICAL ANALYST Unavailable [phone] Arlin Cherry CLINICAL ANALYST Unavailable [phone] Shun Schuster MD Unavailable Portia [email or web address] Jaspal Pettit MD Unavailable Joelle Grande MD, MS Unavailable Danuta Patel MD Unavailable [phone] Encounter Details Date Type Department Care Team (Late st Contact Info) Description 02/04/2019 Procedure Pass [facility] Endoscopy Department [address] [place] [address] Social History Tobacco Use Types Packs/Day Years [...] Upcoming Encounters Date Type Department Care Team ([facility] st Contact Info) Description 07/29/2025 Procedure Pass [facility] Imaging Department, [facility], [place] [address] [facility], Floor [address]1 [place] [address] 07/29/2025 Procedure Pass [facility] Imaging Department, [facility] [place] [address] [facility], Floor [address]1 [place] [address] 07/31/2026 1:40 PM EDT Appointment [facility] Imaging Department, [facility], [place] [address] [facility], Floor [address] [place] [address] Danuta Patel MD [address] [place] [address] Agnes@[facility] 08/04/2026 10:30 AM EDT [facility], [address], 6th [place] [address] Danuta Patel MD [address] [place] [address] Agnes@[facility] documented as of [...] documented as of this encounter Care Teams Fitness Centre Manager Relationship Specialty Start Date End Date Dontae, Chiara Crandall MD [address] [place] [address] [address] [place] [phone] PCP - General Internal Medicine 07/25/18 Joelle Grande MD, MS [address] [place] [address] JOSÉ MANUEL@[facility] Surgeon Surgical Oncology 08/15/18 Oly Kraus MD, MPH [address] [place] [address] Lolis@[facility] Primary Oncologist Radiation Oncology 08/15/18 Valerie Conti MD [address] [place] [address] Mariusz@[facility] Primary Oncologist Medical Oncology 08/15/18 04/11/20 Daryn Donohue MD [address] [place] [address] Referring Physician Urology 08/19/18 Savanna Banegas [address] [place] [address] NESTOR@[email or web address] Pitch Worker 08/19/18 Sindy Isaacs, [address] [address] Gregorio@[facility] Apartment House Manager Oncology 09/16/18 07/25/19 Cris Aburto, [address] [address] delvin@[email or web address] Apartment House Manager 12/26/18 Arlin Cherry, [address] [address] Maykel@[facility] Apartment House Manager Oncology 07/26/19 Shun Schuster MD Rohan@[facility] Primary Oncologist Medical Oncology 04/12/20 06/21/21 Jaspal Ordoñez MD [address] [place] [address] [email or web address] Palliative Care 12/22/20 Joelle Grande MD, MS [address] [place] [address] JOSÉ MANUEL@[facility] Surgical Oncology 03/07/21 Danuta Patel MD [address] [place] [address] Agnes@[facility] Medical Oncology 06/22/21 documented as of this encounter Additional Source Comments The information contained in this document represents components of the legal health record. It is not the complete legal health record.[facility]
--- OUTSIDE RECORDS SUMMARY | 2025-08-10 15:11 | XMS_ITS | Encounter Summary ---
Author Organization [facility] Address [address] [place] [address] Phone Care Team Providers Care Custom Harvester Name Role Phone Chiara Diggs MD Primary Care Provider [phone] Joelle Grande MD, MS Unavailable Oly Kraus MD, MPH Unavailable + [phone] Valerei Conti MD Unavailable [phone] Daryn Donohue MD Unavailable [phone] Savanna Banegas Unavailable Sindy Isaacs NURSING UNIT MANAGER Unavailable [phone] Cris Aburto NURSING UNIT MANAGER Unavailable [phone] Arlin Cherry NURSING UNIT MANAGER Unavailable +[phone] Shun Schuster MD Unavailable Portia [email or web address] Jaspal Pettit MD Unavailable Joelle Grande MD, MS Unavailable Danuta Patel MD Unavailable +[phone] Encounter Details Date Type Department Care Team (Late st Contact Info) Description 08/15/2018 Procedure Pass [facility] [address] [place] [address] Social History Tobacco Use Types Packs/Day Years Used Date Smoking Tobacco: Former Cigarettes 0.3 2 1 962 - 1858 Smokeless Tobacco: Never Alcohol Use Standard Drinks/Week [...] st Contact Info) Description 07/29/2025 Procedure Pass [facility] Imaging [facility], [facility], [place] [address] [facility], Floor [address]1 [place] [address] 07/29/2025 Procedure Pass [facility] Imaging Department, [facility] [place] [address] [facility], Floor [address] [place] [address] 07/31/2026 1:40 PM EDT Appointment [facility] Imaging Department, [facility] [place] [address] [facility], Floor [address] [place] [address] Danuta Patel MD [address] [place] [address] Agnes@[facility] 08/04/2026 10:30 AM EDT [facility], [address], 6th [place] [address] Danuta Patel MD [address] [place] [address] Agnes@[facility] documented as of this encounter Visit Diagnoses Not on filedocumented in this encounter Additional Health Concerns 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 02/28/2019 12/20/2022 1:[address] CoV-Presumed Comment:12/12: Symptom onset- fatigue, ST, cough, SOB 12/13: positive PCR outside lab (needs to be uploaded to [facility])- Yohana Noble RN 12/12/2021 12/13/2021 01/01/2022 1:[address] documented as of this encounter Care Teams Custom Harvester Relationship Specialty Start Date End Date Chiara Diggs MD [address] [place] [address] Drive [address] [place] [phone] PCP - General Internal Medicine 07/25/18 Joelle Grande MD, MS [address] [place] [address] JOSÉ MANUEL@[facility] Surgeon Surgical Oncology 08/15/18 Oly Kraus MD, MPH [address] [place] [address] Lolis@[facility] Primary Oncologist Radiation Oncology 08/15/18 Valerie Conti MD [address] [place] [address] Mariusz@[facility] Primary Oncologist Medical Oncology 08/15/18 04/11/20 Daryn Donohue MD [address] [place] [address] Referring Physician Urology 08/19/18 Savanna Banegas [address] [place] [address] NESTOR@[facility] Time Broker 08/19/18 Sindy Isaacs, [address] [address] [email or web address]@[facility] Ship Wirer Oncology 09/16/18 07/25/19 Cris Aburto, [address] [address] delvin@[email or web address] Ship Wirer 12/26/18 Arlin Chrery, [address] [address] Maykel@[facility] Ship Wirer Oncology 07/26/19 Shun Schuster MD Rohan@[facility] Primary Oncologist Medical Oncology 04/12/20 06/21/21 Jaspal Ordoñez MD [address] [place] [address] [email or web address] Palliative Care 12/22/20 Joelle Grande MD, MS [address] [place] [address] JOSÉ MANUEL@[facility] Surgical Oncology 03/07/21 Danuta Patel MD [address] [place] [address] Agnes@[facility] Medical Oncology 06/22/21 documented as of this encounter Additional Source Comments The information contained in this document represents components of the legal health record. It is not the complete legal health record.[facility]
--- OUTSIDE RECORDS SUMMARY | 2025-08-10 15:11 | XMS_ITS | Encounter Summary ---
Author Organization [facility] Address [address] [place] [address] Phone Care Team Providers Care Human Resource Assistant Name Role Phone Chiara Diggs MD Primary Care Provider [phone] Joelle Grande MD, MS Unavailable Oly Kraus MD, MPH Unavailable + [phone] Valerie Conti MD Unavailable [phone] Daryn Donohue MD Unavailable [phone] Savanna Banegas Unavailable Sindy Isaacs POWER BENDER OPERATOR Unavailable [phone] Cris Aburto POWER BENDER OPERATOR Unavailable [phone] Arlin Cherry POWER BENDER OPERATOR Unavailable [phone] Shun Schuster MD Unavailable Portia [email or web address] Jaspal Pettit MD Unavailable Joelle Grande MD, MS Unavailable Danuta Patel MD Unavailable [phone] Encounter Details Date Type Department Care Team (Late st Contact Info) Description 12/24/[address] [facility] Echocardiography [address] [place] [address] Chiara Diggs MD [address] [facility] [address] [place] [phone] Social History Tobacco Use Types Packs/Day [...] Info) Description 07/29/2025 Procedure Pass [facility] Imaging Department, [facility], [place] [address] [facility], Floor [address]1 [place] [address] 07/29/2025 Procedure Pass [facility] Imaging Department, [facility], [place] [address] [facility], Floor [address]1 [place] [address] 07/31/2026 1:40 PM EDT Appointment [facility] Imaging Department, [facility], [place] [address] [facility], [address] [place] [address] Danuta Patel MD [address] [place] [address] Agnes@[facility] 08/04/2026 10:30 AM EDT [facility], [address], 6th [place] [address] Danuta Patel MD [address] [place] [address] Agnes@[facility] documented as of this [...] documented as of this encounter Care Teams Human Resource Assistant Relationship Specialty Start Date End Date Po, Chiara Crandall MD [address] [place] [address] Drive [address] [place] [phone] PCP - General Internal Medicine 07/25/18 Joelle Grande MD, MS [address] [place] [address] JOSÉ MANUEL@[facility] Surgeon Surgical Oncology 08/15/18 Oly Kraus MD, MPH [address] [place] [address] Lolis@[facility] Primary Oncologist Radiation Oncology 08/15/18 Valerie Conti MD [address] [place] [address] Mariusz@[email or web address] Primary Oncologist Medical Oncology 08/15/18 04/11/20 Daryn Donohue MD [address] [place] [address] Referring Physician Urology 08/19/18 Savanna Banegas [address] [place] [address] NESTOR@[facility] Supervisor Sample Preparation 08/19/18 Sindy Isaacs, [address] [address] Gregorio@[facility] Cleaning Machine Operator Oncology 09/16/18 07/25/19 Cris Aburto, [address] [address] [email or web address] Cleaning Machine Operator 12/26/18 Arlin Cherry, [place] [address] Maykel@[facility] Cleaning Machine Operator Oncology 07/26/19 Shun Schuster MD Rohan@[email or web address] Primary Oncologist Medical Oncology 04/12/20 06/21/21 Jaspal Ordoñez MD [address] [place] [address] [email or web address] Palliative Care 12/22/20 Joelle Grande MD, MS [address] [place] [address] JOSÉ MANUEL@[facility] Surgical Oncology 03/07/21 Danuta Patel MD [address] [place] [address] Agnes@[facility] Medical Oncology 06/22/21 documented as of this encounter Additional Source Comments The information contained in this document represents components of the legal health record. It is not the complete legal health record.[facility]
--- OUTSIDE RECORDS SUMMARY | 2025-08-10 15:11 | XMS_ITS | Encounter Summary ---
Author Organization [facility] Address [address] [place] [address] Phone Care Team Providers Care Carton Filling Machine Operator Name Role Phone Chiara Diggs MD Primary Care Provider [phone] Joelle Grande MD, MS Unavailable Oly Kraus MD, MPH Unavailable + [phone] Daryn Donohue MD Unavailable Savanna Banegas Unavailable Cris Aburto EARTH MOVING MACHINE OPERATOR Unavailable + [phone] Arlin Cherry EARTH MOVING MACHINE OPERATOR Unavailable [phone] Jaspal Ordoñez MD Unavailable Joelle Grande MD, MS Unavailable Danuta Patel MD Unavailable [phone] Encounter Details Date Type Department Care Team (Late st Contact Info) Description 10/17/2023 Procedure Pass [facility], Ct Scan - [address] [address] Social History Tobacco Use Types Packs/Day Years [...] Contact Info) Description 07/29/2025 Procedure Pass [facility] Imaging Department, [facility], [place] [address] [facility], [address] [place] [address] 07/29/2025 Procedure Pass [facility] Imaging Department, [facility], [address], [place] [address] [place] [address] 07/31/2026 1:40 PM EDT Appointment [facility] Imaging Department, [facility], [place] [address] [facility], [place] [address] [place] [address] Danuta Patel MD [address] [place] [address] Agnes@[facility] 08/04/2026 10:30 AM EDT [facility], [address], 6th [place] [address] Danuta Patel MD [address] [place] [address] Agnes@[facility] documented as of this encounter Visit Diagnoses Not on filedocumented in this encounter Additional Health Concerns Assessment Noted Time PHQ-2 Depression Total Score: 0 11/12/19 20 1:45 PM EST documented as of this encounter Care Teams Carton Filling Machine Operator Relationship Specialty Start Date End Date Chiara Diggs MD [address] [place] [address] [place] [phone] PCP - General Internal Medicine 07/25/18 Joelle Grande MD, MS [address] [place] [address] JOSÉ MANUEL@[facility] Surgeon Surgical Oncology 08/15/18 Oly Kraus MD, MPH [address] [place] [address] Lolis@[facility] Primary Oncologist Radiation Oncology 08/15/18 Daryn Donohue MD [address] [place] [address] Referring Physician Urology 08/19/18 Savanna Banegas [address] [place] [address] NESTOR@[facility] Marketing And Promotions Manager 08/19/18 Cris Aburto, [facility] [address] [place] [address] [email or web address] Dental Assistant Medical Assistant 12/26/18 Arlin Cherry, [facility] [address] [place] [address] Maykel@[email or web address] Dental Assistant Medical Assistant Oncology 07/26/19 Jaspal Ordoñez MD [address] [place] [address] Palliative Care 12/22/20 Joelle Grande MD, MS [address] [place] [address] JOSÉ MANUEL@[email or web address] Surgical Oncology 03/07/21 Danuta Patel MD [address] [place] [address] Agnes@[email or web address] Medical Oncology 06/22/21 documented as of this encounter Additional Source Comments The information contained in this document represents components of the legal health record. It is not the complete legal health record.[facility]
--- OUTSIDE RECORDS SUMMARY | 2025-08-10 15:11 | XMS_ITS | Encounter Summary ---
Author Organization [facility] Address [address] [place] [address] Phone Care Team Providers Care Laboratory Associate Name Role Phone Chiara Diggs MD Primary Care Provider [phone] Joelle Grande MD, MS Unavailable Oly Kraus MD, MPH Unavailable + [phone] Valerie Conti MD Unavailable [phone] Daryn Donohue MD Unavailable [phone] Savanna Banegas Unavailable Sindy Isaacs DECORATING KILN OPERATOR Unavailable [phone] Cris Aburto DECORATING KILN OPERATOR Unavailable [phone] Arlin Cherry DECORATING KILN OPERATOR Unavailable [phone] Shun Schuster MD Unavailable Portia [email or web address] Jaspal Pettit MD Unavailable Joelle Grande MD, MS Unavailable Danuta Patel MD Unavailable [phone] Encounter Details Date Type Department Care Team (Late st Contact Info) Description 02/20/2019 Procedure Pass [facility] Endoscopy Department [address] [place] [address] Social History Tobacco Use Types Packs/Day Years [...] Upcoming Encounters Date Type Department Care Team ([facility] st Contact Info) Description 07/29/2025 Procedure Pass [facility] Imaging Department, [facility], [place] [address] [facility], Floor [address] [place] [address] 07/29/2025 Procedure Pass [facility] Imaging Department, [facility] [place] [address] [facility], Floor [address] [place] [address] 07/31/2026 1:40 PM EDT Appointment [facility] Imaging Department, [facility] [place] [address] [facility], Floor [address] [place] [address] Danuta Patel MD [address] [place] [address] Agnes@[facility] 08/04/2026 10:30 AM EDT [facility], [address], 6th [place] [address] Danuta Patel MD [address] [place] [address] Agnes@[facility] documented as of [...] documented as of this encounter Care Teams Laboratory Associate Relationship Specialty Start Date End Date Dontae, Chiara Crandall MD [address] [place] [address] Drive [address] [place] [phone] PCP - General Internal Medicine 07/25/18 Joelle Grande MD, MS [address] [place] [address] JOSÉ MANUEL@[facility] Surgeon Surgical Oncology 08/15/18 Oly Kraus MD, MPH [address] [place] [address] Lolis@[facility] Primary Oncologist Radiation Oncology 08/15/18 Valerie Conti MD [address] [place] [address] Mariusz@[facility] Primary Oncologist Medical Oncology 08/15/18 04/11/20 Daryn Donohue MD [address] [place] [address] Referring Physician Urology 08/19/18 Savanna Banegas [address] [place] [address] NESTOR@[email or web address] Cook Pie 08/19/18 Sindy Isaacs, [address] [address] Gregorio@[facility] Elevator Troubleshooter Oncology 09/16/18 07/25/19 Cris Aburto, [address] [address] delvin@[email or web address] Elevator Troubleshooter 12/26/18 Arlin Cherry, [address] [address] Maykel@[facility] Elevator Troubleshooter Oncology 07/26/19 Shun Schuster MD Rohan@[facility] Primary Oncologist Medical Oncology 04/12/20 06/21/21 Jaspal Ordoñez MD [address] [place] [address] [email or web address] Palliative Care 12/22/20 Joelle Grande MD, MS [address] [place] [address] JOSÉ MANUEL@[facility] Surgical Oncology 03/07/21 Danuta Patel MD [address] [place] [address] Agnes@[facility] Medical Oncology 06/22/21 documented as of this encounter Additional Source Comments The information contained in this document represents components of the legal health record. It is not the complete legal health record.[facility]
--- OUTSIDE RECORDS SUMMARY | 2025-08-10 15:11 | XMS_ITS | Encounter Summary ---
Author Organization [facility] Address [address] [place] [address] Phone Care Team Providers Care Psychiatry Resident Name Role Phone Chiara Diggs MD Primary Care Provider [phone] Joelle Grande MD, MS Unavailable Oly Kraus MD, MPH Unavailable + [phone] Valerie Conti MD Unavailable [phone] Daryn Donohue MD Unavailable [phone] Savanna Banegas Unavailable Sindy Isaacs SIGNAL INTEGRITY ENGINEER Unavailable +[phone] Cris Aburto SIGNAL INTEGRITY ENGINEER Unavailable +[phone] Arlin Cherry SIGNAL INTEGRITY ENGINEER Unavailable [phone] Shun Schuster MD Unavailable Portia [email or web address] Jaspal Pettit MD Unavailable Joelle Grande MD, MS Unavailable Danuta Patel MD Unavailable [phone] Encounter Details Date Type Department Care Team (Late st Contact Info) Description 11/26/2018 Procedure Pass [facility] Periop [address] [place] [address] Social History Tobacco Use Types Packs/Day Years [...] st Contact Info) Description 07/29/2025 Procedure Pass [facility] Imaging Department, [facility], [place] [address] [facility], [address] [place] [address] 07/29/2025 Procedure Pass [facility] Imaging Department, [facility] [place] [address] [facility], [address] [place] [address] 07/31/2026 1:40 PM EDT Appointment [facility] Imaging Department, [facility], [place] [address] [facility], [address] [place] [address] Danuta Patel MD [address] [place] [address] Agnes@[facility] 08/04/2026 10:30 AM EDT [facility], [address], 6th [place] [address] Danuta Patel MD [address] [place] [address] Agnes@[facility] documented as [...] documented as of this encounter Care Teams Psychiatry Resident Relationship Specialty Start Date End Date Dontae, Chiara Crandall MD [address] [place] [address] [address] [place] [phone] PCP - General Internal Medicine 07/25/18 Joelle Grande MD, MS [address] [place] [address] JSOÉ MANUEL@[facility] Surgeon Surgical Oncology 08/15/18 Oly Kraus MD, MPH [address] [place] [address] Lolsi@[facility] Primary Oncologist Radiation Oncology 08/15/18 Valerie Conti MD [address] [place] [address] Mariusz@[facility] Primary Oncologist Medical Oncology 08/15/18 04/11/20 Daryn Donohue MD [address] [place] [address] Referring Physician Urology 08/19/18 Savanna Banegas [address] [place] [address] NESTOR@[email or web address] Senior Policy Advisor 08/19/18 Sindy Isaacs, [address] [address] Gregorio@[facility] Delivery Motorcycle Driver Oncology 09/16/18 07/25/19 Cris Aburto, [address] [address] delvin@[facility] Delivery Motorcycle Driver 12/26/18 Arlin Cherry, [address] [address] Maykel@[facility] Delivery Motorcycle Driver Oncology 07/26/19 Shun Schuster MD Rohan@[facility] Primary Oncologist Medical Oncology 04/12/20 06/21/21 Jaspal Ordoñez MD [address] [place] [address] [email or web address] Palliative Care 12/22/20 Joelle Grande MD, MS [address] [place] [address] JOSÉ MANUEL@[facility] Surgical Oncology 03/07/21 Danuta Patel MD [address] [place] [address] Agnes@[facility] Medical Oncology 06/22/21 documented as of this encounter Additional Source Comments The information contained in this document represents components of the legal health record. It is not the complete legal health record.[facility]
--- OUTSIDE RECORDS SUMMARY | 2025-08-10 15:11 | XMS_ITS | Encounter Summary ---
Author Organization [facility] Address [address] [place] [address] Phone Care Team Providers Care Press Shop Supervisor Name Role Phone Chiara Diggs MD Primary Care Provider [phone] Joelle Grande MD, MS Unavailable Oly Kraus MD, MPH Unavailable + [phone] Valerie Conti MD Unavailable +[phone] Daryn Donohue MD Unavailable [phone] Savanna Banegas Unavailable Sindy Isaacs AREA FIELD PERSON Unavailable [phone] Cris Aburto AREA FIELD PERSON Unavailable +[phone] Arlin Cherry AREA FIELD PERSON Unavailable +[phone] Shun Schuster MD Unavailable Portia [email or web address] Jaspal Pettit MD Unavailable Joelle Grande MD, MS Unavailable Danuta Patel MD Unavailable +[phone] Encounter Details Date Type Department Care Team (Late st Contact Info) Description 02/21/2019 Procedure Pass [facility] [address] [place] [address] Social History Tobacco Use Types Packs/Day Years [...] Upcoming Encounters Date Type Department Care Team ([facility] st Contact Info) Description 07/29/2025 Procedure Pass [facility] Imaging Department, [facility], [place] [address] [facility], Floor [address]1 [place] [address] 07/29/2025 Procedure Pass [facility] Imaging Department, [facility] [place] [address] [facility], [address]1 [place] [address] 07/31/2026 1:40 PM EDT Appointment [facility] Imaging Department, [facility] [place] [address] [facility], [address]1 [place] [address] Danuta Patel MD [address] [place] [address] Agnes@[email or web address] 08/04/2026 10:30 AM EDT [facility], [address], 6th [place] [address] Danuta Patel MD [address] [place] [address] Agnes@[facility] documented as of this encounter Visit [...] documented as of this encounter Care Teams Press Shop Supervisor Relationship Specialty Start Date End Date Chiara Diggs MD [address] [place] [address] [address] [place] [phone] PCP - General Internal Medicine 07/25/18 Joelle Grande MD, MS [address] [place] [address] JOSÉ MANUEL@[facility] Surgeon Surgical Oncology 08/15/18 Oly Kraus MD, MPH [address] [place] [address] Lolis@[facility] Primary Oncologist Radiation Oncology 08/15/18 Valerie Conti MD [address] [place] [address] Mariusz@[facility] Primary Oncologist Medical Oncology 08/15/18 04/11/20 Daryn Donohue MD [address] [place] [address] Referring Physician Urology 08/19/18 Savanna Banegas [address] [place] [address] NESTOR@[facility] Teletypesetter Operator 08/19/18 Sindy Isaacs, [address] [address] [email or web address]@[facility] Hospitality Host Oncology 09/16/18 07/25/19 Cris Aburto, [address] [address] [email or web address] Hospitality Host 12/26/18 Arlin Cherry, [address] [address] Maykel@[facility] Hospitality Host Oncology 07/26/19 Shun Schusetr MD Rohan@[email or web address] Primary Oncologist Medical Oncology 04/12/20 06/21/21 Jaspal Ordoñez MD [address] [place] [address] [email or web address] Palliative Care 12/22/20 Joelle Grande MD, MS [address] [place] [address] JOSÉ MANUEL@[facility] Surgical Oncology 03/07/21 Danuta Patel MD [address] [place] [address] Agnes@[facility] Medical Oncology 06/22/21 documented as of this encounter Additional Source Comments The information contained in this document represents components of the legal health record. It is not the complete legal health record.[facility]
--- OUTSIDE RECORDS SUMMARY | 2025-08-10 15:11 | XMS_ITS | Encounter Summary ---
Author Organization [facility] Address [address] [place] [address] Phone Care Team Providers Care Metal Fitter Name Role Phone Chiara Diggs MD Primary Care Provider [phone] Joelle Grande MD, MS Unavailable Oyl Kraus MD, MPH Unavailable + [phone] Valerie Conti MD Unavailable [phone] Daryn Donohue MD Unavailable [phone] Savanna Banegas Unavailable Sindy Isaacs HOT MILL ROLLER Unavailable [phone] Cris Aburto HOT MILL ROLLER Unavailable [phone] Arlin Cherry HOT MILL ROLLER Unavailable +[phone] Shun Schuster MD Unavailable Portia Baez@[email or web address] Jaspal Pettit MD Unavailable Joelle Grande MD, MS Unavailable Danuta Patel MD Unavailable [phone] Encounter Details Date Type Department Care Team (Late st Contact Info) Description 02/20/2019 Procedure Pass [facility] [address] [place] [address] Social History Tobacco Use Types Packs/Day Years [...] st Contact Info) Description 07/29/2025 Procedure Pass [facility] Imaging Department, [facility], [place] [address] [facility], Floor L1 [place] [address] 07/29/2025 Procedure Pass [facility] Imaging Department, [facility], [place] [address] [facility], Floor [address]1 [place] [address] 07/31/2026 1:40 PM EDT Appointment [facility] Imaging Department, [facility], [place] [address] [facility], Floor [address]1 [place] [address] Danuta Patel MD [address] [place] [address] [email or web address] 08/04/2026 10:30 AM EDT Tele[facility], [facility] Cancer [address], 6th [place] [address] Danuta Patel MD [address] [place] [address] Agnes@[facility] documented as of this [...] as of this encounter Care Teams Metal Fitter Relationship Specialty Start Date End Date Po, Chiara Crandall MD [address] [place] [address] [place] [phone] PCP - General Internal Medicine 07/25/18 Joelle Grande MD, MS [address] [place] [address] JOSÉ MANUEL@[facility] Surgeon Surgical Oncology 08/15/18 Oly Kraus MD, MPH [address] [place] [address] Lolis@[facility] Primary Oncologist Radiation Oncology 08/15/18 Valerie Conti MD [address] [place] [address] Mariusz@[facility] Primary Oncologist Medical Oncology 08/15/18 04/11/20 Daryn Donohue MD [address] [place] [address] Referring Physician Urology 08/19/18 Savanna Banegas [address] [place] [address] SAVANNABABSCHEPE@[email or web address] Electrical Designer 08/19/18 Sindy Isaacs, [address] [address] Gregorio@[facility] Control Panel Builder Oncology 09/16/18 07/25/19 Cris Aburto, [address] [address] [email or web address] Control Panel Builder 12/26/18 Arlin Cherry, [address] [address] Maykel@[facility] Control Panel Builder Oncology 07/26/19 Shun Schuster MD Rohan@[email or web address] Primary Oncologist Medical Oncology 04/12/20 06/21/21 Jaspal Ordoñez MD [address] [place] [address] [email or web address] Palliative Care 12/22/20 Joelle Grande MD, MS [address] [place] [address] JOSÉ MANUEL@[facility] Surgical Oncology 03/07/21 Danuta Patel MD [address] [place] [address] Agnes@[facility] Medical Oncology 06/22/21 documented as of this encounter Additional Source Comments The information contained in this document represents components of the legal health record. It is not the complete legal health record.[facility]
--- OUTSIDE RECORDS SUMMARY | 2025-08-10 15:11 | XMS_ITS | Encounter Summary ---
Author Organization [facility] Address [address] [place] [address] Phone Care Team Providers Care Reliability Engineer Name Role Phone Chiara Diggs MD Primary Care Provider [phone] Joelle Grande MD, MS Unavailable Oly Kraus MD, MPH Unavailable + [phone] Daryn Donohue MD Unavailable Savanna Banegas Unavailable Cris Aburto SHAPING MACHINE TENDER Unavailable + [phone] Arlin Cherry SHAPING MACHINE TENDER Unavailable [phone] Jaspal Ordoñez MD Unavailable Joelle Grande MD, MS Unavailable Danuta Patel MD Unavailable [phone] Encounter Details Date Type Department Care Team (Late st Contact Info) Description 10/17/2023 Procedure Pass [facility], Ct Scan - [address] [address] Social History Tobacco Use Types Packs/Day Years [...] st Contact Info) Description 07/29/2025 Procedure Pass [facility] Imaging Department, [facility], [place] [address] [facility], Floor L1 [place] [address] 07/29/2025 Procedure Pass [facility] Imaging Department, [facility], [address], Floor [address]1 [place] [address] 07/31/2026 1:40 PM EDT Appointment [facility] Imaging Department, [facility], [place] [address] [facility], Floor [address]1 [place] [address] Danuta Patel MD [address] [place] [address] Agnes@[facility] 08/04/2026 10:30 AM EDT Tele[facility], [address], 6th [place] [address] Danuta Patel MD [address] [place] [address] Agnes@[facility] documented as of this encounter Visit Diagnoses Not on filedocumented in this encounter Additional Health Concerns Assessment Noted Time PHQ-2 Depression Total Score: 0 11/12/19 20 1:45 PM EST documented as of this encounter Care Teams Reliability Engineer Relationship Specialty Start Date End Date Chiara Diggs MD [address] [place] [address] [place] [phone] PCP - General Internal Medicine 07/25/18 Joelle Grande MD, MS [address] [place] [address] JOSÉ MANUEL@[facility] Surgeon Surgical Oncology 08/15/18 Oly Kraus MD, MPH [address] [place] [address] Lolis@[facility] Primary Oncologist Radiation Oncology 08/15/18 Daryn Donohue MD [address] [place] [address] Referring Physician Urology 08/19/18 Savanna Banegas [address] [place] [address] NESTOR@[facility] Api Product Manager 08/19/18 Cris Aburto, [facility] [address] [place] [address] [email or web address] Color Dipper 12/26/18 Arlin Cherry, [facility] 35 [place] [address] Maykel@[facility] Color Dipper Oncology 07/26/19 Jaspal Ordoñez MD [address] [place] [address] Palliative Care 12/22/20 Joelle Grande MD, MS [address] [place] [address] JOSÉ MANUEL@[email or web address] Surgical Oncology 03/07/21 Danuta Patel MD [address] [place] [address] Agnes@[email or web address] Medical Oncology 06/22/21 documented as of this encounter Additional Source Comments The information contained in this document represents components of the legal health record. It is not the complete legal health record.[facility]
--- OUTSIDE RECORDS SUMMARY | 2025-08-10 15:12 | XMS_ITS | Encounter Summary ---
Author Organization [facility] Address [address] [place] [address] Phone Care Team Providers Care Customer Solutions Representative Name Role Phone Chiara Diggs MD Primary Care Provider [phone] Joelle Grande MD, MS Unavailable Oly Kraus MD, MPH Unavailable + [phone] Valerie Conti MD Unavailable [phone] Daryn Donohue MD Unavailable [phone] Savanna Banegas Unavailable Sindy Isaacs STUDIO DIRECTOR Unavailable [phone] Cris Aburto STUDIO DIRECTOR Unavailable [phone] Arlin Cherry STUDIO DIRECTOR Unavailable [phone] Shun Schuster MD Unavailable Portia [email or web address] Jaspal Pettit MD Unavailable Joelle Grande MD, MS Unavailable Danuta Patel MD Unavailable [phone] Encounter Details Date Type Department Care Team (Late st Contact Info) Description 08/15/2018 Procedure Pass [facility] 75 [place] [address] Social History Tobacco Use Types Packs/Day Years Used Date Smoking Tobacco: Former Cigarettes 0.3 2 1 [phone] - 7660 Smokeless Tobacco: Never Alcohol Use Standard Drinks/Week [...] st Contact Info) Description 07/29/2025 Procedure Pass [facility] Imaging Department, [facility], [place] [address] [facility], Floor [address]1 [place] [address] 07/29/2025 Procedure Pass [facility] Imaging Department, [facility] [place] [address] [facility], Floor [address]1 [place] [address] 07/31/2026 1:40 PM EDT Appointment [facility] Imaging Department, [facility] [place] [address] [facility], [address] [place] [address] Danuta Patel MD [address] [place] [address] Agnes@[facility] 08/04/2026 10:30 AM EDT [facility], [address], 6th [place] [address] Danuta Patel MD [address] [place] [address] Agnes@[facility] documented as of this encounter Visit Diagnoses Not on filedocumented in this encounter Additional Health Concerns 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 02/28/2019 12/20/2022 1:[address] 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 Surgeon Surgical Oncology 08/15/18 Oly Kraus MD, MPH [address] [place] [address] Lolis@[facility] Primary Oncologist Radiation Oncology 08/15/18 Valerie Conti MD [address] [place] [address] Mariusz@[facility] Primary Oncologist Medical Oncology 08/15/18 04/11/20 Daryn Donohue MD [address] [place] [address] Referring Physician Urology 08/19/18 Savanna Banegas [address] [place] [address] NESTOR@[facility] Chef Under 08/19/18 Sindy Isaacs, [address] [address] [email or web address]@[facility] Indoor Sports Centre Manager Oncology 09/16/18 07/25/19 Cris Aburto, [address] [address] [email or web address] Indoor Sports Centre Manager 12/26/18 Arlin Cherry, [address] [address] Maykel@[facility] Indoor Sports Centre Manager Oncology 07/26/19 Shun Schuster MD Rohan@[email or web address] Primary Oncologist Medical Oncology 04/12/20 06/21/21 Jaspal Ordoñez MD [address] [place] [address] [email or web address] Palliative Care 12/22/20 Joelle Grande MD, MS [address] [place] [address] JOSÉ MANUEL@[facility] Surgical Oncology 03/07/21 Danuta Patel MD [address] [place] [address] Agnes@[facility] Medical Oncology 06/22/21 documented as of this encounter Additional Source Comments The information contained in this document represents components of the legal health record. It is not the complete legal health record.[facility]
--- OUTSIDE RECORDS SUMMARY | 2025-08-10 15:12 | XMS_ITS | Encounter Summary ---
Author Organization [facility] Address [address] [place] [address] Phone Care Team Providers Care Project Archivist Name Role Phone Chiara Diggs MD Primary Care Provider [phone] Joelle Grande MD, MS Unavailable Oly Kraus MD, MPH Unavailable + [phone] Valerie Conti MD Unavailable [phone] Daryn Donohue MD Unavailable [phone] Savanna Banegas Unavailable Sindy Isaacs AUTOMOBILE MECHANIC RADIATOR Unavailable [phone] Cris Aburto AUTOMOBILE MECHANIC RADIATOR Unavailable [phone] Arlin Cherry AUTOMOBILE MECHANIC RADIATOR Unavailable [phone] Shun Schuster MD Unavailable Portia Baez@[email or web address] Jaspal Pettit MD Unavailable Joelle Grande MD, MS Unavailable Danuta Patel MD Unavailable [phone] Encounter Details Date Type Department Care Team (Late st Contact Info) Description 03/27/2019 Procedure Pass [facility] Periop [address] [place] [address] Social History Tobacco Use Types Packs/Day Years [...] Info) Description 07/29/2025 Procedure Pass [facility] Imaging Department, [facility], [place] [address] [facility], Floor [address]1 [place] [address] 07/29/2025 Procedure Pass [facility] Imaging Department, [facility], [place] [address] [facility], Floor [address]1 [place] [address] 07/31/2026 1:40 PM EDT Appointment [facility] Imaging Department, [facility], [place] [address] [facility], Floor [address]1 [place] [address] Danuta Patel MD [address] [place] [address] Agnes@[facility] 08/04/2026 10:30 AM EDT [facility], [address], 6th [place] [address] Danuta Patel MD [address] [place] [address] Agnes@[facility] documented as of this encounter Visit Diagnoses [...] documented as of this encounter Care Teams Project Archivist Relationship Specialty Start Date End Date Dontae, Chiara Crandall MD [address] [place] [address] [address] [place] [phone] PCP - General Internal Medicine 07/25/18 Joelle Grande MD, MS [address] [place] [address] JOSÉ MANUEL@[facility] Surgeon Surgical Oncology 08/15/18 Oly Kraus MD, MPH [address] [place] [address] Lolis@[facility] Primary Oncologist Radiation Oncology 08/15/18 Valerie Conti MD [address] [place] [address] Mariusz@[facility] Primary Oncologist Medical Oncology 08/15/18 04/11/20 Daryn Donohue MD [address] [place] [address] Referring Physician Urology 08/19/18 Savanna Banegas [address] [place] [address] NESTOR@[email or web address] Fishing Guide 08/19/18 Sindy Isaacs, [address] [address] Gregorio@[email or web address] Logistics Team Lead Oncology 09/16/18 07/25/19 Cris Aburto, [address] [address] [email or web address] Logistics Team Lead 12/26/18 Arlin Cherry, [address] [address] Maykel@[facility] Logistics Team Lead Oncology 07/26/19 Shun Schuster MD Rohan@[facility] Primary Oncologist Medical Oncology 04/12/20 06/21/21 Jaspal Ordoñez MD [address] [place] [address] [email or web address] Palliative Care 12/22/20 Joelle Grande MD, MS [address] [place] [address] JOSÉ MANUEL@[facility] Surgical Oncology 03/07/21 Danuta Patel MD [address] [place] [address] Agnes@[facility] Medical Oncology 06/22/21 documented as of this encounter Additional Source Comments The information contained in this document represents components of the legal health record. It is not the complete legal health record.[facility]
--- OUTSIDE RECORDS SUMMARY | 2025-08-10 15:12 | XMS_ITS | Encounter Summary ---
Author Organization [facility] Address [address] [place] [address] Phone Care Team Providers Care Insurance Verification Rep Name Role Phone Chiara Diggs MD Primary Care Provider [phone] Joelle Grande MD, MS Unavailable Oly Kraus MD, MPH Unavailable Daryn Donohue MD Unavailable Savanna Banegas Unavailable Cris Aburto SENIOR INSIGHT MANAGER Unavailable + [phone] Arlin Cherry SENIOR INSIGHT MANAGER Unavailable Jaspal Ordoñez MD Unavailable Joelle Grande MD, MS Unavailable Danuta Patel MD Unavailable [phone] Encounter Details Date Type Department Care Team (Late st Contact Info) Description 07/02/2024 Procedure [facility] [place] [place] [address] [facility], Floor [address]1 [place] [address] Social History Tobacco Use Types Packs/Day Years [...] Info) Description 07/29/2025 Procedure Pass [facility] Department, [facility], [address], [facility] [address] [place] [address] 07/29/2025 Procedure Pass [facility] Imaging Department, [facility], [address], Floor [address] [place] [address] 07/31/2026 1:40 PM EDT Appointment [facility] Department, [facility], [address], Floor [address] [place] [address] Danuta Patel MD [address] [place] [address] [email or web address] 08/04/2026 10:30 AM EDT [facility], [address], 6th [place] [address] Danuta Patel MD [address] [place] [address] Agnes@[facility] documented as of this encounter Visit Diagnoses Not on filedocumented in this encounter Additional Health Concerns Assessment Noted Time PHQ-2 Depression Total Score: 0 11/12/19 20 1:45 PM EST documented as of this encounter Care Teams Insurance Verification Rep Relationship Specialty Start Date End Date Chiara Diggs MD [address] [place] [address] [place] [phone] PCP - General Internal Medicine 07/25/18 Joelle Grande MD, MS [address] [place] [address] JOSÉ MANUEL@[facility] Surgeon Surgical Oncology 08/15/18 Oly Kraus MD, MPH [address] [place] [address] Lolis@[facility] Primary Oncologist Radiation Oncology 08/15/18 Daryn Donohue MD [address] [place] [address] Referring Physician Urology 08/19/18 Savanna Banegas [address] [place] [address] NESTOR@[email or web address] Supervisor Securities Vault 08/19/18 Cris Aburto, [facility] [address] [place] [address] [email or web address]@[facility] Radar Air Traffic Controller 12/26/18 Arlin Cherry, [facility] [address] [place] [address] Maykel@[facility] Radar Air Traffic Controller Oncology 07/26/19 Jaspal Ordoñez MD [address] [place] [address] [email or web address] Palliative Care 12/22/20 Joelle Grande MD, MS [address] [place] [address] JOSÉ MANUEL@[facility] Surgical Oncology 03/07/21 Danuta Patel MD [address] [place] [address] Agnes@[email or web address] Medical Oncology 06/22/21 documented as of this encounter Additional Source Comments The information contained in this document represents components of the legal health record. It is not the complete legal health record.[facility]
--- OUTSIDE RECORDS SUMMARY | 2025-08-10 15:12 | XMS_ITS | Encounter Summary ---
Author Organization [facility] Address [address] [place] [address] Phone Care Team Providers Care Oil Winterizer Name Role Phone Chiara Diggs MD Primary Care Provider [phone] Joelle Grande MD, MS Unavailable Oly Kraus MD, MPH Unavailable + [phone] Valerie Conti MD Unavailable [phone] Daryn Donohue MD Unavailable Savanna Banegas Unavailable Sindy Isaacs SUMAC TANNER Unavailable [phone] Cris Aburto [facility] TANNER Unavailable [phone] Arlin Cherry [facility] TANNER Unavailable [phone] Shun Schuster MD Unavailable Portia [email or web address] Jaspal Pettit MD Unavailable Joelle Grande MD, MS Unavailable Danuta Patel MD Unavailable [phone] Encounter Details Date Type Department Care Team (Late st Contact Info) Description 08/19/2018 Procedure Pass [facility] [address] [place] [address] Social History Tobacco Use Types Packs/Day Years Used Date Smoking Tobacco: Former Cigarettes 0.3 2 1 [phone] Smokeless Tobacco: Never Alcohol Use Standard Drinks/Week [...] st Contact Info) Description 07/29/2025 Procedure Pass [facility] Imaging Department, [facility], [place] [address] [facility], Floor [address] [place] [address] 07/29/2025 Procedure Pass [facility] Imaging Department, [facility] [place] [address] [facility], Floor [address] [place] [address] 07/31/2026 1:40 PM EDT Appointment [facility] Imaging Department, [facility] [place] [address] [facility], Floor [address] [place] [address] Danuta Patel MD [address] [place] [address] [email or web address] 08/04/2026 10:30 AM EDT [facility], [address], 6th [place] [address] Danuta Patel MD [address] [place] [phone] Agnes@[email or web address] documented as [...] as of this encounter Care Teams Oil Winterizer Relationship Specialty Start Date End Date Chiara Diggs MD [address] [place] [address] [address] [place] [phone] PCP - General Internal Medicine 07/25/18 Joelle Grande MD, MS [address] [place] [address] JOSÉ MANUEL@[email or web address] Surgeon Surgical Oncology 08/15/18 Oly Kraus MD, MPH [address] [place] [address] [email or web address] Primary Oncologist Radiation Oncology 08/15/18 Valerie Conti MD [address] [place] [address] [email or web address] Primary Oncologist Medical Oncology 08/15/18 04/11/20 Daryn Donohue MD [address] [place] [address] Referring Physician Urology 08/19/18 Savanna Banegas [address] [place] [address] [email or web address] Tie Tape Machine Operator 08/19/18 Sindy Isaacs, [address] [address] [email or web address] Neck Skewer Oncology 09/16/18 07/25/19 Cedricgracia Galaviz Paulina, [address] [address] [email or web address] Neck Skewer 12/26/18 Arlin Cherry, [address] [address] [email or web address] Neck Skewer Oncology 07/26/19 Shun Schuster MD [email or web address] Primary Oncologist Medical Oncology 04/12/20 06/21/21 Jaspal Ordoñez MD [address] [place] [address] [email or web address] Palliative Care 12/22/20 Joelle Grande MD, MS [address] [place] [address] JOSÉ MANUEL@[email or web address] Surgical Oncology 03/07/21 Danuta Patel MD [address] [place] [address] [email or web address] Medical Oncology 06/22/21 documented as of this encounter Additional Source Comments The information contained in this document represents components of the legal health record. It is not the complete legal health record.[facility]
--- OUTSIDE RECORDS SUMMARY | 2025-08-10 15:12 | XMS_ITS | Encounter Summary ---
Author Organization [facility] Address [address] [place] [phone] Phone Care Team Providers Care Dean Of Students Name Role Phone Chiara Diggs MD Primary Care Provider [phone] Joelle Grande MD, MS Unavailable Oly Kraus MD, MPH Unavailable + [phone] Valerie Conti MD Unavailable [phone] Daryn Donohue MD Unavailable [phone] Savanna Banegas Unavailable Sindy Isaacs WOOL WASHER Unavailable [phone] Cris Aburto WOOL WASHER Unavailable [phone] Arlin Cherry WOOL WASHER Unavailable [phone] Shun Schuster MD Unavailable Portia [email or web address] Jaspal Pettit MD Unavailable Joelle Grande MD, MS Unavailable Danuta Patel MD Unavailable [phone] Encounter Details Date Type Department Care Team (Late st Contact Info) Description 03/05/2019 Transcribe Orders [facility] Echocardiography [address] [place] [address] Chiara Diggs MD [address] [place] [phone] Social History Tobacco Use Types Packs/Day [...] Info) Description 07/29/2025 Procedure Pass [facility] Imaging Department, [facility], [place] [address] [facility], Floor [address] [place] [address] 07/29/2025 Procedure Pass [facility] Imaging Department, [facility], [place] [address] [facility], [address] [place] [address] 07/31/2026 1:40 PM EDT Appointment [facility] Imaging Department, [facility], [place] [address] [facility], [address] [place] [address] Danuta Patel MD [address] [place] [phone] [email or web address] 08/04/2026 10:30 AM EDT [facility], [address], [address]th [place] [address] Danuta Patel MD [address] [place] [address] [email or web address] documented as of this [...] documented as of this encounter Care Teams Dean Of Students Relationship Specialty Start Date End Date Po, Chiara Crandall MD [address] [place] [address] [address] [place] [phone] PCP - General Internal Medicine 07/25/18 Joelle Grande MD, MS [address] [place] [address] JOSÉ MANUEL@[email or web address] Surgeon Surgical Oncology 08/15/18 Oly Kraus MD, MPH [address] [place] [phone] [email or web address] Primary Oncologist Radiation Oncology 08/15/18 Valerie Conti MD [address] [place] [address] [email or web address] Primary Oncologist Medical Oncology 08/15/18 04/11/20 Daryn Donohue MD [address] [place] [address] Referring Physician Urology 08/19/18 Savanna Banegas [address] [place] [address] [email or web address] Bandage Wrapping Machine Operator 08/19/18 Sindy Isaacs, [address] [address] [email or web address] Venue Coordinator Oncology 09/16/18 07/25/19 Cris Aburto, [address] [address] [email or web address] Venue Coordinator 12/26/18 Arlin Cherry, [place] [address] [email or web address] Venue Coordinator Oncology 07/26/19 Shun Schuster MD [email or web address] Primary Oncologist Medical Oncology 04/12/20 06/21/21 Jaspal Ordoñez MD [address] [place] [address] [email or web address] Palliative Care 12/22/20 Joelle Grande MD, MS [address] [place] [address] JOSÉ MANUEL@[email or web address] Surgical Oncology 03/07/21 Danuta Patel MD [address] [place] [phone] Agnes@[email or web address] Medical Oncology 06/22/21 documented as of this encounter Additional Source Comments The information contained in this document represents components of the legal health record. It is not the complete legal health record.[facility]
--- OUTSIDE RECORDS SUMMARY | 2025-08-10 15:12 | XMS_ITS | Encounter Summary ---
Author Organization [facility] Address [address] [place] [address] Phone Care Team Providers Care Technology Assistant Name Role Phone Chiara Diggs MD Primary Care Provider [phone] Joelle Grande MD, MS Unavailable Oly Kraus MD, MPH Unavailable Daryn Donohue MD Unavailable [phone] Savanna Banegas Unavailable Cris Aburto DEICER REPAIRER Unavailable [phone] Arlin Cheryr DEICER REPAIRER Unavailable Jaspal Ordoñez MD Unavailable Joelle Grande MD, MS Unavailable Danuta Patel MD Unavailable [phone] Encounter Details Date Type Department Care Team (Late st Contact Info) Description 07/02/2024 Procedure Pass [facility] [place] [place] [address] [facility], Floor [address] [place] [address] Social History Tobacco Use Types Packs/Day Years [...] Info) Description 07/29/2025 Procedure Pass [facility] Imaging Department, [facility], [address], [facility] [address]1 [place] [address] 07/29/2025 Procedure Pass [facility] Imaging Department, [facility], [address], Floor [address] [place] [address] 07/31/2026 1:40 PM EDT Appointment [facility] Imaging Department, [facility], [address], Floor [address] [place] [address] Danuta Patel MD [address] [place] [phone] [email or web address] 08/04/2026 10:30 AM EDT [facility], [address], 6th [place] [address] Danuta Patel MD [address] [place] [address] [email or web address] documented as of this encounter Visit Diagnoses Not on filedocumented in this encounter Additional Health Concerns Assessment Noted Time PHQ-2 Depression Total Score: 0 11/12/19 20 1:45 PM EST documented as of this encounter Care Teams Technology Assistant Relationship Specialty Start Date End Date Chiara Diggs MD [address] [place] [address] [place] [phone] PCP - General Internal Medicine 07/25/18 Joelle Grande MD, MS [address] [place] [phone] JOSÉ MANUEL@[email or web address] Surgeon Surgical Oncology 08/15/18 Oly Kraus MD, MPH [address] [place] [phone] [email or web address] Primary Oncologist Radiation Oncology 08/15/18 Daryn Donohue MD [address] [place] [address] Referring Physician Urology 08/19/18 Savanna Banegas [address] [place] [phone] NESTOR@[email or web address] Wall Washer 08/19/18 Cris Aburto, [facility] [address] [place] [address] [email or web address] Department Specialist 12/26/18 Arlin Cherry, [facility] [address] [place] [address] [email or web address] Department Specialist Oncology 07/26/19 Jaspal Ordoñez MD [address] [place] [phone] [email or web address] Palliative Care 12/22/20 Joelle Grande MD, MS [address] [place] [address] JOSÉ [email or web address] Surgical Oncology 03/07/21 Danuta Patel MD [address] [place] [phone] [email or web address] Medical Oncology 06/22/21 documented as of this encounter Additional Source Comments The information contained in this document represents components of the legal health record. It is not the complete legal health record.[facility]
[2025-08-10 15:13] LABS: Troponin-I High Sensitivity 11.9 ng/L (<3.5-17.0)
--- NOTE | 2025-08-10 16:44 | PM.IMHP ---
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 intake, and weight loss worsening over the past 5 days. Patient says that she has abdominal pain ever since she had abdominal surgery as above. Also has diarrhea from the same duration, she is having nausea vomiting for at least 1-2 month which is progressively worsening. Nausea vomiting can happen anytime not related to the food. Denies any fever or chills. Reports recent screening [facility] at [facility] on 07/25 showing chronic pancreatitis. Patient follows up with Dr. Pollock's office. Denies any new complaint of chest pain or shortness of breathor fever or chills Denies any cough Denies any weakness or numbness. Review of Systems Review of Systems: As above. Yes all other systems are reviewed and are negative [facility] Medical History Headache Atrial fibrillation Cataracts, both eyes PAF (paroxysmal atrial fibrillation) Dysphagia Diarrhea Atrial fibrillation with rapid ventricular response Acute respiratory failure Respiratory arrest Asthma exacerbation Radicular low back pain Polyarthralgia Scalp mass Colon cancer screening Breast cancer screening by mammogram RUQ pain Epigastric abdominal pain Chronic gastritis Chronic low back pain Tubular adenoma of colon Hypercholesterolemia Hypertension Vitamin D deficiency Asthma GERD (gastroesophageal reflux disease) Vitamin B12 deficiency Secondary malignant neoplasm of retroperitoneum and peritoneum History of DVT (deep vein thrombosis) Insomnia Family History Father Myocardial infarction CVD (cardiovascular disease) Mother CVD (cardiovascular disease) Stroke Brother Myocardial infarction CVD (cardiovascular disease) Surgical History History of cataract surgery History of excision of mass (~01/11/22) Hx of endoscopy History of colonoscopy Retroperitoneal liposarcoma History of nephroureterectomy History of back surgery History of section History of tubal ligation History of tonsillectomy Social History Household Members: Spouse and Family Housing: House Are you a primary urgent care technician to a significant other at home: No Do you presently have visiting nurse or other home services: No Alcohol intake: never Patient Tobacco Use Status: Never used Tobacco Tobacco use type: Cigarette Smoked in Last 30 Days: No e-Cigarette/Vaping Use: Never Used Second Hand Smoke Exposure: No Use of substances other than those prescribed or required for medical reasons: No Substance Use Type: Marijuana and Other Advance Directives: Yes Advance Directives Information Provided: Yes Advance Directives on File: No Nutrition Risks: No Nutritional Risk service: No Current occupational status: retired Cognitive needs: No Hearing needs: No Vision needs: Yes Meds Allergies Allergy/AdvReac Type Severity Reaction Status Date / Time lisinopril (LISINOPRIL) Allergy Intermediate COUGH, Verified 08/10/25 11:53 constant cough simvastatin (SIMVASTATIN) Allergy Mild Confusion Verified 08/10/25 11:53 Active Medications: Current Medications Acetaminophen (Acetaminophen 325 Mg Tablet) 650 mg PO Q6H PRN PRN Reason: Pain, Mild 1-3,fever,headache Calcium Carbonate (Calcium Carbonate 750 Mg Tab.Chew) 750 mg PO Q4H PRN PRN Reason: Heartburn Piperacillin Sod/Tazobactam (Sod 3.375 gm/ Sodium Chloride) 50 mls @ 100 mls/hr IV ONCE ONE Stop: 08/10/25 16:48 Magnesium Hydroxide (Milk Of Magnesia 30 Ml Oral.Susp) 30 ml PO DAILY PRN PRN Reason: Constipation Melatonin (Melatonin 3 Mg Tablet) 6 mg PO BEDTIME PRN PRN Reason: Insomnia Sodium Chloride (0.9 % Sodium Chloride Flush 3 Ml Syringe) 3 ml IVFLUSH QSHIFT [facility] Home Medications ?Medication ?Instructions ?Recorded ?Confirmed ?Last Taken ?Type cyanocobalamin (vitamin B-12) 1,000 mcg PO DAILY 08/12/20 08/10/25 08/09/25 History 1,000 mcg capsule mesalamine 0.375 gram 0.75 g PO DAILY 07/09/25 08/10/25 08/09/25 History capsule,extended release 24 hr albuterol sulfate 1.25 mg/3 mL 2.5 mg continuous nebulization QID 08/10/25 08/10/25 Unknown History solution for nebulization PRN Shortness Of Breath Or Wheezing cholecalciferol (vitamin D3) 25 25 mcg PO DAILY 08/10/25 08/10/25 08/09/25 History mcg (1,000 unit) tablet (Vitamin D3) hydrocodone 5 mg-acetaminophen 325 1 tab PO Q4-6H PRN pain 08/10/25 08/10/25 Unknown History mg tablet ketorolac 0.5 % eye drops 1 drp ophthalmic-Left TID 08/10/25 08/10/25 08/09/25 History Physical Exam Vital Signs and Narrative: Vital Signs: Last Vital Signs Temp 97.8 F 08/10/25 11:49 Pulse 77 08/10/25 12:46 Resp 16 08/10/25 11:49 BP 112/67 08/10/25 12:46 Pulse Ox 100 08/10/25 11:49 O2 Del Method Room Air 08/10/25 11:49 BMI result Body Mass Index 19.4 Appearance: Alert.? Oriented X3.? cvs: rrr, [id number] . res: clear to auscultation ,no rhonchii or wheezing abd: no rebound or guarding ,nt, bs present. ext pulses present , no cyanosis . neuro: axo3 , nonfocal. Seems to Results Labs 08/10/25 12:14 08/10/25 12:15 Labs: Laboratory Results - last 24 hr 08/10/25 08/10/25 08/10/25 12:14 12:15 14:41 MCV 90.8 MCH 31.4 MCHC 34.6 RDW 15.3 Plt Count 259 MPV 10.2 Immature Gran % (Auto) 0.7 H Neut % (Auto) 69.3 Lymph % (Auto) 23.1 [place] % (Auto) 4.6 Eos % (Auto) 2.0 Baso % (Auto) 0.3 Lymph # (Auto) 1.6 [place] # (Auto) 0.3 Eos # (Auto) 0.1 Baso # (Auto) 0.0 Abs Immat Gran (auto) 0.05 H Absolute Neuts (auto) 4.8 Absolute Nucleated RBC 0.000 Nucleated RBC % (auto) 0.0 PT 11.7 INR 1.0 APTT 33.9 Anion Gap 9 L Estim Creat Clear Calc 29.8 Estimated GFR 38 Random Glucose 114 Lactic Acid 1.5 Calcium 8.6 D Magnesium 1.9 Total Bilirubin 0.2 Direct Bilirubin < 0.2 AST 24 ALT 28 Alkaline Phosphatase 86 Troponin I High Sens 11.9 11.9 Total Protein 4.7 L Albumin 2.9 L Lipase 22 Urine Color Urine Appearance Urine pH Ur Specific [place] Urine Protein Urine Glucose (UA) Urine Ketones Urine Blood Urine Nitrite Ur Leukocyte Esterase Urine RBC Urine WBC Ur Squamous Epith Cells Urine Bacteria Hyaline Casts 08/10/25 14:43 MCV MCH MCHC RDW Plt Count MPV Immature Gran % (Auto) Neut % (Auto) Lymph % (Auto) [place] % (Auto) Eos % (Auto) Baso % (Auto) Lymph # (Auto) [place] # (Auto) Eos # (Auto) Baso # (Auto) Abs Immat Gran (auto) Absolute Neuts (auto) Absolute Nucleated RBC Nucleated RBC % (auto) PT INR APTT Anion Gap Estim Creat Clear Calc Estimated GFR Random Glucose Lactic Acid Calcium Magnesium Total Bilirubin Direct Bilirubin AST ALT Alkaline Phosphatase Troponin I High Sens Total Protein Albumin Lipase Urine Color Yellow Urine Appearance Clear Urine pH 5.5 Ur Specific [place] 1.020 Urine Protein Negative Urine Glucose (UA) Negative Urine Ketones Negative Urine Blood Negative Urine Nitrite Positive H Ur Leukocyte Esterase Small (1+) H Urine RBC 0-2 Urine WBC 0-5 Ur Squamous Epith Cells 0-2 Urine Bacteria 1+ Hyaline Casts 0-2 Imaging Radiologist's Impressions: Impressions Abdomen/Pelvis CT 08/10/25 13:34 IMPRESSION: Again seen are postsurgical changes after right hemicolectomy and right upper quadrant ileocolonic anastomosis. There is increased vascularity in the mesentery, trace ascites, and questionable thickening of the descending and sigmoid colon, and rectum. This may in part be due to incompletely distended bowel, but other etiology such as ischemia, infection, inflammatory bowel disease or not ruled out. Neoplasm as a causes less likely. The region of the pylorus/gastric antrum appears thick walled which could be related to peptic ulcer disease, infection, or other etiologies. Possible Nutcrackers syndrome: There is narrowing of the space between SMA and aorta or the duodenum crosses between the two. Right adrenalectomy and nephrectomy. Possible right oophorectomy. Hepatic steatosis Chronic pancreatitis. Possible pelvic congestion syndrome: There is prominence the left ovarian vein and left periuterine vessels. Correlate for signs symptoms. Severe degenerative changes of the lumbar spine are increasing. Fleischner guidelines were followed. 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 intake, and weight loss worsening over the past 5 days. Patient says that she has abdominal pain ever since she had abdominal surgery as above. Also has diarrhea from the same duration, she is having nausea vomiting for at least 1-2 month which is progressively worsening. Nausea vomiting can happen anytime not related to the food. 1 possible colitis-with intractable nausea vomiting, also has diarrhea CTA abdomen multiple nonspecific findings-including colitis versus nutcracker versus chronic pancreatitis Stool studies IV fluids, IV antibiotics UA and urine culture was also sent, patient denies urinary symptoms. GI evaluation Asthma: Mild intermittent We will reconcile medications when medical reconciliation done. Hypotension, hyperlipidemia, GERD: Medical reconciliation pending. DVT prophylaxis: SubQ Lovenox. Ongoing need of stay: Patient will benefit at least observation stay due to above-patient need IV fluid, IV antibiotics, GI studies and GI evaluation. Above management discussed with the patient in detail length she understand and in agreement with the above plan, time spent 75 minutes, patient full code. Quality Stroke Does the patient have a stroke diagnosis?: No VTE Prior VTE?: No VTE Risk Level:: Medical - moderate - high VTE Device Contraindication: N/A - Device Ordered VTE Drug Contraindication: N/A - Med Ordered
--- NOTE | 2025-08-10 16:51 | PHA.MEDREC ---
Addendum entered by Tereso Dotson, PharmGladis 08/10/25 19:15: MED REC CHECKED BY [facility] Original Note: Pharmacy Consult ? Medication Reconciliation Pharmacy has completed the medication reconciliation. Patient was able to confirm all of her medications. Patient states she is no longer taking Cyclobenzaprine 10 mg, Creon 12,000-38,000-60,000unit, and Topiramate 50 mg. Patient last had her medications yesterday.
[2025-08-10 17:31] VITALS: BP 154/81; PULSE 76; RESP 14; TEMP 36.7; O2SAT 100
[2025-08-10 20:06] VITALS: BP 139/67; PULSE 76; RESP 14; TEMP 37.1; O2SAT 99
--- NOTE | 2025-08-10 20:23 | PC.NURSE ---
Float Rn to bedside to medicate pt per JAN. The pt is reporting 5/10 epigastric pain at this time and requested pain medication. At this time there are no PRN orders available. RN sent Solum message to Hospitalist team to make them aware and to request PRN orders
--- NOTE | 2025-08-10 21:53 | HO.NURTONUR ---
Pt here w/ c/o non-stop N/V x past 5 days. Pt has extensive g.i. hx and gets yearly CT's w/ the last one being last week. Pt states they told her she has chronic pancreatitis of unknown etiology. Pt also states eating makes the pain worse. Pt was medicated for abd pain and antiemtics and was able to finally tolerate food. Pt is on a clear liquid diet currently and is doing well. Pt is currently being followed by Dr. Baptiste. CT results shows a very complicated abd hx.
[2025-08-10 22:26] VITALS: BP 117/52; PULSE 76; RESP 15; TEMP 36.9; O2SAT 98
--- NOTE | 2025-08-11 06:27 | PC.NURSE ---
pt reports 6/10 epigastric pain and nausea and is requesting medication. unfortunately no current prn orders available. hospitalist made aware and new orders requested
--- NOTE | 2025-08-11 06:32 | PM.GICN ---
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 along with poor appetite and unspecified weight loss. The pain is worse with food, and no relieving factors. Denies any fever or chills. Bowel habits are errartic and can be loose at times. no blood noted. Denies chest pain, SOB, cough, denies sick contacts or nsaid use IMAGING: CT: thickened stomach, dense atherosclerosis, incl at origin of celiac and SMA, possible thickening of left colon ENDOSCOPIES: EGD/colonoscopy:01/11/22 Endoscopy Findings: bile acid reflux related gastritis esophagitis esophageal strictures Colonoscopy Findings: polyp internal hemorrhoids diverticular disease balloon was done with small tear at LES Path: tubular adenoma focal enteritis esophagitis Colonoscopy 02/27: polyps x 2 internal hemorrhoids diverticular disease Review of Systems Review of Systems: Constitutional : + Weight loss, No Fever, No Chills ENT/Mouth : No sore throat, No Rhinorrhea Eyes: No Swelling, No Redness Cardiovascular : No Chest Pain, No SOB, No Edema Respiratory : No Cough, No Sputum, No Wheezing Gastrointestinal : see HPI Genitourinary : NO Dysuria, No Urinary Frequency, No Hematuria, No Urgency Musculoskeletal : no joint pain, No Myalgias, No Joint Swelling Skin : No Skin Lesions, No rash Neuro : No Weakness, No Numbness, No Dizziness, No Headache Psych : No Anxiety/Panic, No Depression Heme/Lymph: No Bruising, No Lymphadenopathy Endocrine : No Polyuria, No Polydipsia All other systems reviewed and are negative. [facility] Past Medical History Medical History Headache Atrial fibrillation Cataracts, both eyes PAF (paroxysmal atrial fibrillation) Dysphagia Diarrhea Atrial fibrillation with rapid ventricular response Acute respiratory failure Respiratory arrest Asthma exacerbation Radicular low back pain Polyarthralgia Scalp mass Colon cancer screening Breast cancer screening by mammogram RUQ pain Epigastric abdominal pain Chronic gastritis Chronic low back pain Tubular adenoma of colon Hypercholesterolemia Hypertension Vitamin D deficiency Asthma GERD (gastroesophageal reflux disease) Vitamin B12 deficiency Secondary malignant neoplasm of retroperitoneum and peritoneum History of DVT (deep vein thrombosis) Insomnia Family History Family History Father Myocardial infarction CVD (cardiovascular disease) Mother CVD (cardiovascular disease) Stroke Brother Myocardial infarction CVD (cardiovascular disease) Surgical History Surgical History History of cataract surgery History of excision of mass (~01/11/22) Hx of endoscopy History of colonoscopy Retroperitoneal liposarcoma History of nephroureterectomy History of back surgery History of section History of tubal ligation History of tonsillectomy Social History Social History Household Members: Spouse and Family Housing: House Are you a primary menagerie caretaker to a significant other at home: No Do you presently have visiting nurse or other home services: No Alcohol intake: never Patient Tobacco Use Status: Never used Tobacco Tobacco use type: Cigarette e-Cigarette/Vaping Use: Never Used Second Hand Smoke Exposure: No Substance Use Type: Marijuana and Other service: No Current occupational status: retired Cognitive needs: No Hearing needs: No Vision needs: Yes Meds Allergies Allergy/AdvReac Type Severity Reaction Status Date / Time lisinopril (LISINOPRIL) Allergy Intermediate COUGH, Verified 08/10/25 11:53 constant cough simvastatin (SIMVASTATIN) Allergy Mild Confusion Verified 08/10/25 11:53 Active Medications: Current Medications Acetaminophen (Acetaminophen 325 Mg Tablet) 650 mg PO Q6H PRN PRN Reason: Pain, Mild 1-3,fever,headache Calcium Carbonate (Calcium Carbonate 750 Mg Tab.Chew) 750 mg PO Q4H PRN PRN Reason: Heartburn Enoxaparin Sodium (Enoxaparin Sodium 30 Mg/0.3 Ml Syringe) 30 mg SUBCUT Q24H [facility] Last Admin: 08/10/25 20:10 Dose: 30 mg Piperacillin Sod/Tazobactam (Sod 2.25 gm/ Sodium Chloride) 50 mls @ 100 mls/hr IV Q6H [facility] Last Infusion: 08/11/25 00:29 Dose: Infused Magnesium Hydroxide (Milk Of Magnesia 30 Ml Oral.Susp) 30 ml PO DAILY PRN PRN Reason: Constipation Melatonin (Melatonin 3 Mg Tablet) 6 mg PO BEDTIME PRN PRN Reason: Insomnia Sodium Chloride (0.9 % Sodium Chloride Flush 3 Ml Syringe) 3 ml IVFLUSH QSHIFT [facility] Last Admin: 08/11/25 00:30 Dose: Not Given Home Medications ?Medication ?Instructions ?Recorded ?Confirmed ?Last Taken ?Type cyanocobalamin (vitamin B-12) 1,000 mcg PO DAILY 08/12/20 08/10/25 08/09/25 History 1,000 mcg capsule mesalamine 0.375 gram 0.75 g PO DAILY 07/09/25 08/10/25 08/09/25 History capsule,extended release 24 hr albuterol sulfate 1.25 mg/3 mL 2.5 mg continuous nebulization QID 08/10/25 08/10/25 Unknown History solution for nebulization PRN Shortness Of Breath Or Wheezing cholecalciferol (vitamin D3) 25 25 mcg PO DAILY 08/10/25 08/10/25 08/09/25 History mcg (1,000 unit) tablet (Vitamin D3) hydrocodone 5 mg-acetaminophen 325 1 tab PO Q4-6H PRN pain 08/10/25 08/10/25 Unknown History mg tablet ketorolac 0.5 % eye drops 1 drp ophthalmic-Left TID 08/10/25 08/10/25 08/09/25 History Physical Exam Exam: Exam: EXAM: GENERAL: The patient is thin VITAL SIGNS:see workflow HEENT: Nonicteric sclerae, PERRLA, EOMI. Oropharynx clear. Moist mucous membranes. Conjunctivae appear well perfused. No thyroid mass. CHEST: Chest wall is nontender. HEART: Regular rate and rhythm without murmurs. LUNGS: Clear to auscultation bilaterally. ABDOMEN: Soft, positive bowel sounds, tender epigastrium, no organomegaly.no flank tenderness SKIN: No rash, no excessive bruising, petechiae, or purpura. NEUROLOGIC: Cranial nerves II-XII intact without motor/sensory deficit. Psych: normal affect Vital Signs: Vital Signs: Last Vital Signs Temp 98.4 F 08/10/25 22:26 Pulse 76 08/10/25 22:26 Resp 15 08/10/25 22:26 BP 117/52 L 08/10/25 22:26 Pulse Ox 98 08/10/25 22:26 O2 Del Method Room Air 08/10/25 22:26 BMI result Body Mass Index 19.4 Results Labs 08/10/25 12:14 08/10/25 12:15 Labs: Short CBC 08/10/25 Range/Units 12:14 WBC 7.0 (4.8-10.8) X10*3/uL Hgb 9.2 L (12.0-16.0) g/dl Hct 26.6 L D (37.0-47.0) % Plt Count 259 (160-400) X10*3/uL BMP 08/10/25 12:15 Sodium 133 L Potassium 4.6 Chloride 107 Carbon Dioxide 22 BUN 14 Creatinine 1.34 Calcium 8.6 D Liver Function 08/10/25 Range/Units 12:15 Total Bilirubin 0.2 (0.0-1.0) mg/dL Direct Bilirubin < 0.2 (0.0-0.5) mg/dL AST 24 (5-31) U/L ALT 28 (0-31) U/L Alkaline Phosphatase 86 (39-117) U/L Albumin 2.9 L (3.5-5.0) g/dL Urine 08/10/25 Range/Units 14:43 Urine Color Yellow Urine Appearance Clear Urine pH 5.5 (5.0-9.0) Ur Specific [place] 1.020 (1.005-1.025) Urine Protein Negative (Neg-Trace) mg/dL Urine Glucose (UA) Negative (Negative) mg/dL Imaging CT scan - abdomen: Attestation: I personally reviewed and interpreted this imaging study as follows: (atherosclerosis, colon thickening, ) Assessment and Plan (1) Gastritis: Qualifiers: Chronicity: unspecified Status: Acute Plan 1/ Abdominal pain, ddx: gastritis, PUD, ischemic colitis from atherosclerosis, mesenteric ischemia, chronci pancreatitis, SMA syndrome 2/ chronic anemia, likely anemia of chronic disease or from malabsorption PLAN: 1/ EGD tomorrow for further assessment with sigmoidscopy 2/ stool studies if any diarrhea 3/ can use PO PPI meantime and add carafate. Procedures Date of Service Date of Service: 08/11/25
[2025-08-11 07:34] VITALS: BP 117/54; PULSE 79; RESP 18; TEMP 36.7; O2SAT 99
--- NOTE | 2025-08-11 08:53 | HO.ANESPROP2 ---
Documented by User: Marcia Yoder NP 08/11/25 09:47 HPI - Anesthesia Eval Consult details Narrative: 75 yr old female for upper endoscopy, sigmoidoscopy flexible H/O afib in 2022: happened with respiratory arrest; no indication for anticoagulation PMFSH Active Problems Active Problems: All Active Problems (Updated 08/10/25 @ 15:38 by OLIVER Chamberlain) Chronic pancreatitis (Acute) Abdominal pain (Acute) Colitis (Acute) Impaired fasting blood sugar (Acute) Weight loss, abnormal (Acute) Atrial fibrillation (Acute) Preoperative clearance (Acute) Gustatory rhinitis (Acute) Pancreatic stones (Acute) Spondylosis of lumbar region without myelopathy or radiculopathy (Acute) Spondylolisthesis (Acute) Lumbar degenerative disc disease (Acute) Cramping of hands (Acute) Diarrhea (Acute) Dysphagia (Acute) Trigger finger (Acute) Gastritis (Acute) Cardiac arrest (Acute) Impacted cerumen of both ears (Acute) Vision changes (Acute) Asthma (Acute) Anemia (Acute) 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) COVID-19 virus infection (Acute) Osteopenia (Acute) Impacted cerumen of both ears (Acute) Recurrent major depression (Acute) Chronic cholecystitis (Acute) Medicare annual wellness visit, initial (Acute) Cholelithiasis (Acute) Memory deficit (Acute) Headache (Acute) Chronic low back pain (Acute) Vitamin D deficiency (Acute) GERD (gastroesophageal reflux disease) (Acute) Vitamin B12 deficiency (Acute) Insomnia (Acute) Past Medical History Medical History Headache Atrial fibrillation Cataracts, both eyes PAF (paroxysmal atrial fibrillation) Dysphagia Diarrhea Atrial fibrillation with rapid ventricular response Acute respiratory failure Respiratory arrest Asthma exacerbation Radicular low back pain Polyarthralgia Scalp mass Colon cancer screening Breast cancer screening by mammogram RUQ pain Epigastric abdominal pain Chronic gastritis Chronic low back pain Tubular adenoma of colon Hypercholesterolemia Hypertension Vitamin D deficiency Asthma GERD (gastroesophageal reflux disease) Vitamin B12 deficiency Secondary malignant neoplasm of retroperitoneum and peritoneum History of DVT (deep vein thrombosis) Insomnia Family History Family History Father Myocardial infarction CVD (cardiovascular disease) Mother CVD (cardiovascular disease) Stroke Brother Myocardial infarction CVD (cardiovascular disease) Family history of problems with anesthesia: No Surgical History Surgical History History of cataract surgery History of excision of mass (~01/11/22) Hx of endoscopy History of colonoscopy Retroperitoneal liposarcoma History of nephroureterectomy History of back surgery History of section History of tubal ligation History of tonsillectomy History of Problems with Anesthesia: No Social History Social History Household Members: Spouse and Family Housing: House Are you a primary post acute care registered nurse to a significant other at home: No Do you presently have visiting nurse or other home services: No Alcohol intake: never Comment: pt refusing bed alarm Patient Tobacco Use Status: Never used Tobacco Tobacco use type: Cigarette e-Cigarette/Vaping Use: Never Used Second Hand Smoke Exposure: No Substance Use Type: Marijuana and Other service: No Current occupational status: retired Cognitive needs: No Hearing needs: No Vision needs: Yes Meds Allergies Allergy/AdvReac Type Severity Reaction Status Date / Time lisinopril (LISINOPRIL) Allergy Intermediate COUGH, Verified 08/12/25 09:47 constant cough simvastatin (SIMVASTATIN) Allergy Mild Confusion Verified 08/12/25 09:47 Active Medications: Current Medications Acetaminophen (Acetaminophen 325 Mg Tablet) 650 mg PO Q6H PRN PRN Reason: Pain, Mild 1-3,fever,headache Calcium Carbonate (Calcium Carbonate 750 Mg Tab.Chew) 750 mg PO Q4H PRN PRN Reason: Heartburn Enoxaparin Sodium (Enoxaparin Sodium 30 Mg/0.3 Ml Syringe) 30 mg SUBCUT Q24H BLANK Last Admin: 08/10/25 20:10 Dose: 30 mg Piperacillin Sod/Tazobactam (Sod 2.25 gm/ Sodium Chloride) 50 mls @ 100 mls/hr IV Q6H BLANK Last Infusion: 08/11/25 07:40 Dose: Infused Magnesium Hydroxide (Milk Of Magnesia 30 Ml Oral.Susp) 30 ml PO DAILY PRN PRN Reason: Constipation Melatonin (Melatonin 3 Mg Tablet) 6 mg PO BEDTIME PRN PRN Reason: Insomnia Ondansetron HCl (Ondansetron Hcl 4 Mg/2 Ml Vial) 4 mg IVPUSH Q6H PRN PRN Reason: Nausea and Vomiting Sodium Biphosphate/Sodium Phosphate (Sodium Phosphate,[place]-Dibasic 133 Ml Enema) 133 ml [place] ONCE PRN PRN Reason: for sigmoidscopy Sodium Biphosphate/Sodium Phosphate (Sodium Phosphate,[place]-Dibasic 133 Ml Enema) 133 ml [place] ONCE PRN PRN Reason: sigmoidoscopy Sodium Chloride (0.9 % Sodium Chloride Flush 3 Ml Syringe) 3 ml IVFLUSH QSHIFT [facility] Last Admin: 08/11/25 07:40 Dose: Not Given Home Medications ?Medication ?Instructions ?Recorded ?Confirmed ?Last Taken ?Type cyanocobalamin (vitamin B-12) 1,000 mcg PO DAILY 08/12/20 08/10/25 08/09/25 History 1,000 mcg capsule mesalamine 0.375 gram 0.75 g PO DAILY 07/09/25 08/10/25 08/09/25 History capsule,extended release 24 hr albuterol sulfate 1.25 mg/3 mL 2.5 mg continuous nebulization QID 08/10/25 08/10/25 Unknown History solution for nebulization PRN Shortness Of Breath Or Wheezing cholecalciferol (vitamin D3) 25 25 mcg PO DAILY 08/10/25 08/10/25 08/09/25 History mcg (1,000 unit) tablet (Vitamin D3) hydrocodone 5 mg-acetaminophen 325 1 tab PO Q4-6H PRN pain 08/10/25 08/10/25 Unknown History mg tablet ketorolac 0.5 % eye drops 1 drp ophthalmic-Left TID 08/10/25 08/10/25 08/09/25 History Exam Height,Weight and Vital Signs: Height 5 ft 5 in Weight 52.8 kg Last Vital Signs Temp 98.1 F 08/11/25 07:34 Pulse 79 08/11/25 07:34 Resp 18 08/11/25 07:34 BP 117/54 L 08/11/25 07:34 Pulse Ox 99 08/11/25 07:34 O2 Del Method Room Air 08/11/25 07:34 Pertinent Lab Results Pertinent Lab Results: Laboratory Tests 08/10/25 08/10/25 08/10/25 12:14 12:15 14:41 WBC 7.0 RBC 2.93 L D Hgb 9.2 L Hct 26.6 L D MCV 90.8 MCH 31.4 MCHC 34.6 RDW 15.3 Plt Count 259 MPV 10.2 Immature Gran % (Auto) 0.7 H Neut % (Auto) 69.3 Lymph % (Auto) 23.1 [place] % (Auto) 4.6 Eos % (Auto) 2.0 Baso % (Auto) 0.3 Lymph # (Auto) 1.6 [place] # (Auto) 0.3 Eos # (Auto) 0.1 Baso # (Auto) 0.0 Abs Immat Gran (auto) 0.05 H Absolute Neuts (auto) 4.8 Absolute Nucleated RBC 0.000 Nucleated RBC % (auto) 0.0 PT 11.7 INR 1.0 APTT 33.9 Sodium 133 L Potassium 4.6 Chloride 107 Carbon Dioxide 22 Anion Gap 9 L BUN 14 Creatinine 1.34 Estim Creat Clear Calc 29.8 Estimated GFR 38 Random Glucose 114 Lactic Acid 1.5 Calcium 8.6 D Magnesium 1.9 Total Bilirubin 0.2 Direct Bilirubin < 0.2 AST 24 ALT 28 Alkaline Phosphatase 86 Troponin I High Sens 11.9 11.9 Total Protein 4.7 L Albumin 2.9 L Lipase 22 Urine Color Urine Appearance Urine pH Ur Specific [place] Urine Protein Urine Glucose (UA) Urine Ketones Urine Blood Urine Nitrite Ur Leukocyte Esterase Urine RBC Urine WBC Ur Squamous Epith Cells Urine Bacteria Hyaline Casts 08/10/25 14:43 WBC RBC Hgb Hct MCV MCH MCHC RDW Plt Count MPV Immature Gran % (Auto) Neut % (Auto) Lymph % (Auto) [place] % (Auto) Eos % (Auto) Baso % (Auto) Lymph # (Auto) [place] # (Auto) Eos # (Auto) Baso # (Auto) Abs Immat Gran (auto) Absolute Neuts (auto) Absolute Nucleated RBC Nucleated RBC % (auto) PT INR APTT Sodium Potassium Chloride Carbon Dioxide Anion Gap BUN Creatinine Estim Creat Clear Calc Estimated GFR Random Glucose Lactic Acid Calcium Magnesium Total Bilirubin Direct Bilirubin AST ALT Alkaline Phosphatase Troponin I High Sens Total Protein Albumin Lipase Urine Color Yellow Urine Appearance Clear Urine pH 5.5 Ur Specific [place] 1.020 Urine Protein Negative Urine Glucose (UA) Negative Urine Ketones Negative Urine Blood Negative Urine Nitrite Positive H Ur Leukocyte Esterase Small (1+) H Urine RBC 0-2 Urine WBC 0-5 Ur Squamous Epith Cells 0-2 Urine Bacteria 1+ Hyaline Casts 0-2 Narrative Narrative: EKG 08/10/25 Vent. Rate : 73 BPM Atrial Rate : 73 BPM P-R Int : 142 ms QRS Dur : 86 ms QT Int : 402 ms P-R-T Axes : 72 54 102 degrees QTcB Int : 442 ms Normal sinus rhythm ST & T wave abnormality, consider lateral ischemia Abnormal ECG When compared with ECG of 18-Jun-2025 13:16, Inverted T waves have replaced nonspecific T wave abnormality in Lateral leads Assessment and Plan Final Anesthetic Review Family History of Problems with Anesthesia: No History of Problems with Anesthesia: No Documented by User: Sonal Jordan MD 08/12/25 09:56 PMFSH Past Medical History Medical History Headache Atrial fibrillation Cataracts, both eyes PAF (paroxysmal atrial fibrillation) Dysphagia Diarrhea Atrial fibrillation with rapid ventricular response Acute respiratory failure Respiratory arrest Asthma exacerbation Radicular low back pain Polyarthralgia Scalp mass Colon cancer screening Breast cancer screening by mammogram RUQ pain Epigastric abdominal pain Chronic gastritis Chronic low back pain Tubular adenoma of colon Hypercholesterolemia Hypertension Vitamin D deficiency Asthma GERD (gastroesophageal reflux disease) Vitamin B12 deficiency Secondary malignant neoplasm of retroperitoneum and peritoneum History of DVT (deep vein thrombosis) Insomnia Family History Family History Father Myocardial infarction CVD (cardiovascular disease) Mother CVD (cardiovascular disease) Stroke Brother Myocardial infarction CVD (cardiovascular disease) Surgical History Surgical History History of cataract surgery History of excision of mass (~01/11/22) Hx of endoscopy History of colonoscopy Retroperitoneal liposarcoma History of nephroureterectomy History of back surgery History of section History of tubal ligation History of tonsillectomy Social History Social History Household Members: Spouse and Family Housing: House Are you a primary post acute care registered nurse to a significant other at home: No Do you presently have visiting nurse or other home services: No Alcohol intake: never Comment: pt refusing bed alarm Patient Tobacco Use Status: Never used Tobacco Tobacco use type: Cigarette e-Cigarette/Vaping Use: Never Used Second Hand Smoke Exposure: No Substance Use Type: Marijuana and Other service: No Current occupational status: retired Cognitive needs: No Hearing needs: No Vision needs: Yes Meds Allergies Allergy/AdvReac Type Severity Reaction Status Date / Time lisinopril (LISINOPRIL) Allergy Intermediate COUGH, Verified 08/12/25 09:47 constant cough simvastatin (SIMVASTATIN) Allergy Mild Confusion Verified 08/12/25 09:47 Home Medications ?Medication ?Instructions ?Recorded ?Confirmed ?Last Taken ?Type cyanocobalamin (vitamin B-12) 1,000 mcg PO DAILY 08/12/20 08/10/25 08/09/25 History 1,000 mcg capsule mesalamine 0.375 gram 0.75 g PO DAILY 07/09/25 08/10/25 08/09/25 History capsule,extended release 24 hr albuterol sulfate 1.25 mg/3 mL 2.5 mg continuous nebulization QID 08/10/25 08/10/25 Unknown History solution for nebulization PRN Shortness Of Breath Or Wheezing cholecalciferol (vitamin D3) 25 25 mcg PO DAILY 08/10/25 08/10/25 08/09/25 History mcg (1,000 unit) tablet (Vitamin D3) hydrocodone 5 mg-acetaminophen 325 1 tab PO Q4-6H PRN pain 08/10/25 08/10/25 Unknown History mg tablet ketorolac 0.5 % eye drops 1 drp ophthalmic-Left TID 08/10/25 08/10/25 08/09/25 History Exam Airway Mallampati Class: II (only couple teeth on the bottom left) TM Dist: >3cm Neck ROM: Full Heart: rrr Lungs: cta Assessment and Plan Assessment Anesthesia Assessment: Anesthesia Plan Discussed and Chart Reviewed Final Anesthetic Review NPO: Yes ASA Class: III Final Preanesthetic Review: No Changes in Pt Med Stat, Meds/Allgs Chart Reviewed and Consent Obtained/Reviewed Patient Risk: Intermediate Procedure Risk: Low Anesthetic Plan Anesthetic Plan: MAC: Disposition: Standard PACU
[2025-08-11 09:13] VITALS: BP 157/70; PULSE 76; RESP 18; TEMP 36.7; O2SAT 98
[2025-08-11 09:19] VITALS: BMI 20.8
[2025-08-11 11:45] VITALS: BMI 20.8
--- NOTE | 2025-08-11 11:53 | MHC.CLN ---
CONSULT CLEAR LIQUID DIET. REPORTS WORSENING GI SYMPTOMS X 5 DAYS. WEIGHT LOSS X 6 MONTHS -7.5%. QUALIFIES MODERATELY MALNOURISHED IN THE CONTEXT OF CHRONIC ILLNESS. FOLLOW FOR DIET ADVANCEMENT AND PO INTAKE. SEE CLINICAL NUTRITION ASSESSMENT 08/11/25.
[2025-08-11 11:54] LABS: CDiff Gene PCR NEGATIVE (Negative)
[2025-08-11] MEDS: oxyCODONE HCl Immed Release 5 MG TABLET PO ×3 (12:34→22:53)
--- NOTE | 2025-08-11 14:29 | MHC.CM.PN ---
SHELLEY delivered. Patient lives in a home w/ , Ron, daughter, Geno, and daughter's /children. Functionally independent. Denies use of DME or services. Completed HCP naming her daughter and and HCA's. PCP Chiara Diggs MD DP: Home self care, family transport. CM will continue to follow.
[2025-08-11 14:37] LABS: E. coli EAEC Not Detected (Not Detect.); E. coli EPEC Not Detected (Not Detect.); E. coli ETEC Not Detected (Not Detect.); E. coli STEC Not Detected (Not Detect.); Shigella sp./EIEC Not Detected (Not Detect.)
[2025-08-11 15:17] VITALS: BP 155/68; PULSE 70; RESP 16; TEMP 36.1; O2SAT 92
--- NOTE | 2025-08-11 15:31 | P.PNIM_ITS ---
Subjective Subjective Date of Service: 08/11/25 Interval History: possible colitis Review of Systems has abd pain feels nauseated Review of Systems: Yes all other systems are reviewed and are negative Physical Exam 2 Exam: Exam: Appearance: Alert.? Oriented X3.? cvs: rrr, [id number] . res: clear to auscultation ,no rhonchii or wheezing abd: no rebound or guarding , mild abd pain,bs present. ext pulses present , no cyanosis . neuro: axo3 , nonfocal. Vital Signs: Vital Signs: Last Vital Signs Temp 96.9 F 08/11/25 15:17 Pulse 70 08/11/25 15:17 Resp 16 08/11/25 15:17 BP 155/68 H 08/11/25 15:17 Pulse Ox 92 08/11/25 15:17 O2 Del Method Room Air 08/11/25 15:17 BMI result Body Mass Index 20.8 Objective Data Active Medications Acetaminophen (Acetaminophen 325 Mg Tablet) 650 mg PO Q6H PRN PRN Reason: Pain, Mild 1-3,fever,headache Albuterol Sulfate (Albuterol Sulfate (0.042%) 1.25 Mg/3 Ml Vial.Neb) 2.5 mg INHALE QID PRN PRN Reason: Shortness Of Breath Or Wheezing Albuterol Sulfate (Albuterol Sulfate 90 Mcg 8 Gm Inhaler) 2 puff INHALE Q4H PRN PRN Reason: Respiratory Distress Calcium Carbonate (Calcium Carbonate 750 Mg Tab.Chew) 750 mg PO Q4H PRN PRN Reason: Heartburn Cyanocobalamin (Cyanocobalamin (Vitamin B-12) 1,000 Mcg Tablet) 1,000 mcg PO DAILY [facility] Duloxetine HCl (Duloxetine Hcl 60 Mg Capsule.Dr) 60 mg PO DAILY [facility] Enoxaparin Sodium (Enoxaparin Sodium 30 Mg/0.3 Ml Syringe) 30 mg SUBCUT Q24H [facility] Last Admin: 08/10/25 20:10 Dose: 30 mg Documented By: PATRICIA Piperacillin Sod/Tazobactam (Sod 2.25 gm/ Sodium Chloride) 50 mls @ 100 mls/hr IV Q6H [facility] Last Infusion: 08/11/25 11:52 Dose: Infused Documented By: AB Influenza Virus Vaccine (Flu Vacc [id number](6mo Up)/Pf 0.5 Ml Syringe) 0.5 ml IM .ONCE ONE Stop: 08/12/25 09:01 Ketorolac Tromethamine (Ketorolac Tromethamine 0.5% Op 5 Ml Drops) 1 drop EYE- LEFT TID BLANK Magnesium Hydroxide (Milk Of Magnesia 30 Ml Oral.Susp) 30 ml PO DAILY PRN PRN Reason: Constipation Melatonin (Melatonin 3 Mg Tablet) 6 mg PO BEDTIME PRN PRN Reason: Insomnia Mesalamine (Mesalamine 0.375 Gm Cap.Er.24h) 0.75 gm PO DAILY BLANK Montelukast Sodium (Montelukast Sodium 10 Mg Tablet) 10 mg PO DAILY BLANK Ondansetron HCl (Ondansetron Hcl 4 Mg/2 Ml Vial) 4 mg IVPUSH Q6H PRN PRN Reason: Nausea and Vomiting Last Admin: 08/11/25 10:55 Dose: 4 mg Documented By: AB Oxycodone HCl (Oxycodone Hcl Immed Release 5 Mg Tablet) 5 mg PO Q4H PRN PRN Reason: Pain, Severe (Pain Scale 7-10) Last Admin: 08/11/25 12:34 Dose: 5 mg Documented By: AB Prochlorperazine Maleate (Prochlorperazine Maleate 5 Mg Tablet) 5 mg PO TID PRN PRN Reason: Nausea and Vomiting Sodium Biphosphate/Sodium Phosphate (Sodium Phosphate,[place]-Dibasic 133 Ml Enema) 133 ml [place] ONCE PRN PRN Reason: for sigmoidscopy Sodium Biphosphate/Sodium Phosphate (Sodium Phosphate,[place]-Dibasic 133 Ml Enema) 133 ml [place] ONCE PRN PRN Reason: sigmoidoscopy Sodium Chloride (0.9 % Sodium Chloride Flush 3 Ml Syringe) 3 ml IVFLUSH QSHIFT [facility] Last Admin: 08/11/25 07:40 Dose: Not Given Documented By: LIZ Non-Admin Reason: See Note Vitamin D (Cholecalciferol (Vitamin D3) 25 Mcg Tablet) 25 mcg PO DAILY BLANK Zolpidem Tartrate (Zolpidem Tartrate 5 Mg Tablet) 5 mg PO BEDTIME PRN PRN Reason: Insomnia Labs 08/10/25 12:14 08/10/25 12:15 Labs: Laboratory Results - last 24 hr 08/11/25 08/11/25 10:57 10:58 Stl C. cayetanensis PCR Not Detected Stool Rotavirus A PCR Not Detected Stl Adenov F 40/41 PCR Not Detected Stool Astrovirus (PCR) Not Detected Stool Campylobacter PCR Not Detected Stool Cryptosporidium PCR Not Detected Stl Sh Tox Pr E STEC PCR Not Detected Stool E coli O157 PCR Not applicable Stl Enterotoxigenic E PCR Not Detected Stool EPEC (PCR) Not Detected Stool EAEC (PCR) Not Detected Stl E. histolytica PCR Not Detected Stool Giardia Lamblia PCR Not Detected Stl P. shigelloides PCR Not Detected Stool Salmonella PCR Not Detected Stool Sapovirus (PCR) Not Detected Stl Shigella/EIEC PCR Not Detected St Y.enterocolitica PCR Not Detected Stool Vibrio (PCR) Not Detected Stl Vibrio cholerae PCR Not Detected Stl Norovirus GI/GII PCR Not Detected C. difficile Tox B Gene NEGATIVE Microbiology Microbiology Results: Microbiology 08/10/25 15:17 Urine Culture - Preliminary Urine clean catch - Clean Catch Midstream Gram negative daryl Assessment and Plan (1) Colitis: Status: Acute Plan 75-year-old female with a past medical history AFib, asthma, HTN, HLD, GERD, 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 intake, and weight loss worsening over the past 5 days. Patient says that she has abdominal pain ever since she had abdominal surgery as above. Also has diarrhea from the same duration, she is having nausea vomiting for at least 1-2 month which is progressively worsening. Nausea vomiting can happen anytime not related to the food. 1 possible colitis-with intractable nausea vomiting, also has diarrhea CTA abdomen multiple nonspecific findings-including colitis versus nutcracker versus chronic pancreatitis Stool studies IV fluids, IV antibiotics, antiemetics UA and urine culture was also sent, patient denies urinary symptoms. GI evaluation-egd/sigmoidscopy in am npo past midnight Asthma: Mild intermittent We will reconcile medications when medical reconciliation done. Hypotension, hyperlipidemia, GERD: Medical reconciliation pending. DVT prophylaxis: SubQ Lovenox. Ongoing need of stay: stay due to above-unable to patient need IV fluid, IV antibiotics, GI studies and as well need of egd/sigmoidscopy tomorrow. Quality Stroke Does the patient have a stroke diagnosis?: No VTE Prior VTE?: No VTE Risk Level:: Medical - moderate - high VTE Device Contraindication: N/A - Device Ordered VTE Drug Contraindication: N/A - Med Ordered
[2025-08-11] MEDS: 0.9 % Sodium Chloride Flush 3 ML SYRINGE IVFLUSH ×2 (18:20→20:44)
[2025-08-11 19:51] VITALS: BP 121/57; PULSE 71; RESP 17; TEMP 36.3; O2SAT 99
[2025-08-11] MEDS: Albuterol Sulfate 90 MCG 8 GM INHALER 2 PUFF INHALE (20:44)
[2025-08-11] MEDS: Ketorolac Tromethamine 0.5% Op 5 ML DROPS 1 DROP EYE-LEFT (20:44)
[2025-08-12] VITALS (8 sets, daily range): BP systolic 92–135; BP diastolic 45–69; PULSE 46–85; RESP 16–18; TEMP 36.3–36.9; O2SAT 96–100
[2025-08-12] MEDS: oxyCODONE HCl Immed Release 5 MG TABLET PO ×2 (05:01→13:45)
[2025-08-12] MEDS: Albuterol Sulfate 90 MCG 8 GM INHALER 2 PUFF INHALE (05:01)
[2025-08-12 06:24] LABS: Hematocrit 22.7 % (37.0-47.0); Hemoglobin 7.7 g/dl (12.0-16.0); Mean Corpuscular HGB Conc 33.9 g/dl (31.0-35.0); Mean Corpuscular Hemoglobin 31.3 pg (27.0-33.0); Mean Corpuscular Volume 92.3 fL (80.0-98.0); NRBC Abs Auto 0.000 X10*3/uL (0.0-0.012); NRBC Pct Auto 0.0 /100WBC (0.0-0.2); Platelet Count 241 X10*3/uL (160-400); Red Blood Count 2.46 X10*6/uL (4.20-5.50); White Blood Count 3.2 X10*3/uL (4.8-10.8)
[2025-08-12 06:29] LABS: Alanine Aminotransferase 21 U/L (0-31); Albumin Level 2.4 g/dL (3.5-5.0); Alkaline Phosphatase 66 U/L (39-117); Anion Gap 10 (12-20); Aspartate Amino Transferase 25 U/L (5-31); Blood Urea Nitrogen 10 mg/dL (9-16); Calcium 8.0 mg/dL (8.4-10.2); Carbon Dioxide 20 mmol/L (22-29); Chloride 112 mmol/L (96-108); Creatinine Clr Calc Pharmacy 30.1; Estimated Glomerular Filt Rate 36; Potassium 3.7 mmol/L (3.3-5.1); Sodium 138 mmol/L (135-145); Total Protein 4.0 g/dL (6.5-8.0)
[2025-08-12] MEDS: 0.9 % Sodium Chloride Flush 3 ML SYRINGE IVFLUSH (08:02)
[2025-08-12] MEDS: Lactated Ringers 1,000 ML 80 ML IVCONT (09:48)
--- NOTE | 2025-08-12 10:14 | P.PNGI_ITS ---
Subjective Subjective Date of Service: 08/12/25 Interval History: feeling better today passing gas and stool pain is much less Critical Care Time (minutes): 0 Physical Exam 2 Exam: Exam: EXAM: GENERAL: The patient is relaxed VITAL SIGNS:see workflow HEENT: Nonicteric sclerae, PERRLA, EOMI. Oropharynx clear. Moist mucous membranes. Conjunctivae appear well perfused. No thyroid mass. CHEST: Chest wall is nontender. HEART: Regular rate and rhythm without murmurs. LUNGS: Clear to auscultation bilaterally. ABDOMEN: Soft, positive bowel sounds, nontender, no organomegaly.no flank tenderness SKIN: No rash, no excessive bruising, petechiae, or purpura. NEUROLOGIC: Cranial nerves II-XII intact without motor/sensory deficit. Psych: normal affect Vital Signs: Vital Signs: Last Vital Signs Temp 98.1 F 08/12/25 09:43 Pulse 70 08/12/25 09:43 Resp 18 08/12/25 09:43 BP 135/69 08/12/25 09:43 Pulse Ox 100 08/12/25 09:43 O2 Del Method Room Air 08/12/25 09:43 BMI result Body Mass Index 20.8 Objective Data Labs 08/12/25 05:48 08/12/25 05:48 Labs: Laboratory Results - last 24 hr 08/11/25 08/11/25 08/12/25 10:57 10:58 05:48 WBC 3.2 L RBC 2.46 L Hgb 7.7 L Hct 22.7 L MCV 92.3 MCH 31.3 MCHC 33.9 RDW 15.3 Plt Count 241 MPV 10.1 Absolute Nucleated RBC 0.000 Nucleated RBC % (auto) 0.0 Sodium 138 Potassium 3.7 Chloride 112 H Carbon Dioxide 20 L Anion Gap 10 L BUN 10 Creatinine 1.42 H Estim Creat Clear Calc 30.1 Estimated GFR 36 Random Glucose 84 Calcium 8.0 L D Total Bilirubin 0.3 AST 25 ALT 21 Alkaline Phosphatase 66 Total Protein 4.0 L Albumin 2.4 L Stl C. cayetanensis PCR Not Detected Stool Rotavirus A PCR Not Detected Stl Adenov F 40/41 PCR Not Detected Stool Astrovirus (PCR) Not Detected Stool Campylobacter PCR Not Detected Stool Cryptosporidium PCR Not Detected Stl Sh Tox Pr E STEC PCR Not Detected Stool E coli O157 PCR Not applicable Stl Enterotoxigenic E PCR Not Detected Stool EPEC (PCR) Not Detected Stool EAEC (PCR) Not Detected Stl E. histolytica PCR Not Detected Stool Giardia Lamblia PCR Not Detected Stl P. shigelloides PCR Not Detected Stool Salmonella PCR Not Detected Stool Sapovirus (PCR) Not Detected Stl Shigella/EIEC PCR Not Detected St Y.enterocolitica PCR Not Detected Stool Vibrio (PCR) Not Detected Stl Vibrio cholerae PCR Not Detected Stl Norovirus GI/GII PCR Not Detected C. difficile Tox B Gene NEGATIVE Microbiology Microbiology Results: Microbiology 08/10/25 15:17 Urine clean catch - Clean Catch Midstream Urine Culture - Preliminary Escherichia coli Procedures Date of Service Date of Service: 08/12/25 Progress Note: A&P Assessment and plan (1) Abdominal pain: Status: Acute Assessment and Plan: 1/ abdominal pain, with n/v and anemia, r/o PUD, colitis--stool tests neg for infectious causes so far PLAN: 1/EGD and sigmoidoscopy for further eval today Time Spent With Patient Time: Total time managing care of this patient today ____ minutes. Quality Stroke Does the patient have a stroke diagnosis?: No VTE Prior VTE?: No VTE Risk Level:: Medical - moderate - high VTE Device Contraindication: N/A - Device Ordered VTE Drug Contraindication: N/A - Med Ordered
--- NOTE | 2025-08-12 10:50 | MHC.CM.PN ---
Addendum entered by Ade Dos Santos RN 08/12/25 14:15: Medically cleared for dc home self care, family transport. Original Note: Patient not medically cleared for dc at this time. CM will continue to follow.
--- NOTE | 2025-08-12 10:57 | W.PM.OPN ---
Operative Note Operative Note Date of Service: 08/12/25 Narrative: Procedure Description: EGD and sigmoidoscopy Indication: anemia and colitis on imaging Anesthesia: MAC FLEXIBLE TRANSORAL UPPER GASTROINTESTINAL ENDOSCOPY AND SIGMOIDOSCOPY UPPER ENDOSCOPY Consent: Indications for the procedure and potential complications of bleeding, perforation, reaction to medications and missed diagnosis were discussed with the patient and informed consent was obtained. Instrument: Olympus GIF H 190 J mid size upper endoscope Monitoring: Vital signs and clinical assessment, continuous EKG monitoring, Pulse oximetry, Carbon Dioxide monitoring and blood pressure monitoring were done throughout the procedure. Procedure: The patient was placed in the left lateral decubitis position and pre-procedure medications were administered and a bite block was placed. The endoscope was inserted into the mouth and advanced under direct vision to the third part of duodenum. A careful inspection was made as the upper endoscope was withdrawn including a retroflexed examination of the proximal stomach; Findings and interventions are described below. Findings: Larynx:normal Esophagus: GE junction at 38 cm, diaphragm hiatus at 38 cm, with esophagitis noted at GEJ Stomach: streaky erythema with some bile acid reflux and flecks of blood noted . Biopsies were obtained. Grade 2 flap valve on retroflexed examination of the cardia. There was a gastrojejunostomy on the posterior side of the stomach, There was an ulcer noted at the anastomosis which was non bleeding, bx taken. It measured about 10 mm in diameter. Duodenum: Normal bulb and descending duodenum, bx taken Intervention: Biopsies as noted above, Patient was then turned for sigmoidoscopy Reached up to the descending colon Bowel mucosa looked featureless and was edematous possibly from malnutrition with oily stool material noted. bx taken. Small internal hemorrhoids noted, otherwise normal. Impression/Findings: gastritis esophagitis anastomotic ulcer colonopathy PLAN: PPI BID and add carafate 1 g BID GERD precautions pancreatic supplements
--- NOTE | 2025-08-12 12:46 | MHC.CLN ---
F/U DIET RX: LOW FAT. QUALIFIES MODERATELY MALNOURISHED IN THE CONTEXT OF CHRONIC ILLNESS. PO INTAKE, 1 MEAL X 50%, 1 MEAL X 100%. FOLLOW FOR DIET TOLERANCE AND PO INTAKE. CONSIDER ENSURE SUPPLEMENT IF POOR PO.
--- NOTE | 2025-08-12 13:17 | HO.PM.IMPN ---
Subjective Subjective Date of Service: 08/12/25 Interval History: abd pain but able to tolerate po Physical Exam Exam: Exam: EXAM: GENERAL: The patient is relaxed VITAL SIGNS:see workflow HEENT: Nonicteric sclerae, PERRLA, EOMI. Oropharynx clear. Moist mucous membranes. Conjunctivae appear well perfused. No thyroid mass. CHEST: Chest wall is nontender. HEART: Regular rate and rhythm without murmurs. LUNGS: Clear to auscultation bilaterally. ABDOMEN: Soft, positive bowel sounds, nontender, no organomegaly.no flank tenderness SKIN: No rash, no excessive bruising, petechiae, or purpura. NEUROLOGIC: Cranial nerves II-XII intact without motor/sensory deficit. Psych: normal affect Vital Signs: Vital Signs: Last Vital Signs Temp 97.5 F 08/12/25 11:50 Pulse 72 08/12/25 11:50 Resp 16 08/12/25 11:50 BP 135/63 08/12/25 11:50 Pulse Ox 99 08/12/25 11:50 O2 Del Method Room Air 08/12/25 11:50 BMI result Body Mass Index 20.8 Objective Data Active Medications Acetaminophen (Acetaminophen 325 Mg Tablet) 650 mg PO Q6H PRN PRN Reason: Pain, Mild 1-3,fever,headache Albuterol Sulfate (Albuterol Sulfate (0.042%) 1.25 Mg/3 Ml Vial.Neb) 2.5 mg INHALE QID PRN PRN Reason: Shortness Of Breath Or Wheezing Albuterol Sulfate (Albuterol Sulfate 90 Mcg 8 Gm Inhaler) 2 puff INHALE Q4H PRN PRN Reason: Respiratory Distress Last Admin: 08/12/25 05:01 Dose: 2 puff Documented By: NICHO Calcium Carbonate (Calcium Carbonate 750 Mg Tab.Chew) 750 mg PO Q4H PRN PRN Reason: Heartburn Cyanocobalamin (Cyanocobalamin (Vitamin B-12) 1,000 Mcg Tablet) 1,000 mcg PO DAILY [facility] Last Admin: 08/12/25 09:17 Dose: Not Given Documented By: ANABEL Non-Admin Reason: NPO Duloxetine HCl (Duloxetine Hcl 60 Mg Capsule.) 60 mg PO DAILY [facility] Last Admin: 08/12/25 09:18 Dose: Not Given Documented By: ANABEL Non-Admin Reason: NPO Enoxaparin Sodium (Enoxaparin Sodium 30 Mg/0.3 Ml Syringe) 30 mg SUBCUT Q24H [facility] Last Admin: 08/11/25 18:10 Dose: 30 mg Documented By: AB Lactated Ringer's (Lr) 1,000 mls @ 80 mls/hr IVCONT .[id number] [facility] Last Admin: 08/12/25 09:48 Dose: 80 mls/hr Documented By: PHIL Ketorolac Tromethamine (Ketorolac Tromethamine 0.5% Op 5 Ml Drops) 1 drop EYE-LEFT TID [facility] Last Admin: 08/12/25 09:21 Dose: Not Given Documented By: ANABEL Non-Admin Reason: Off Unit: Surgery Magnesium Hydroxide (Milk Of Magnesia 30 Ml Oral.Susp) 30 ml PO DAILY PRN PRN Reason: Constipation Melatonin (Melatonin 3 Mg Tablet) 6 mg PO BEDTIME PRN PRN Reason: Insomnia Meropenem (Meropenem 1 Gm Vial) 1 gm IVPUSH Q12H [facility] Last Admin: 08/12/25 09:16 Dose: 1 gm Documented By: ANABEL Mesalamine (Mesalamine 0.375 Gm Cap.Er.24h) 0.75 gm PO DAILY [facility] Last Admin: 08/12/25 09:18 Dose: Not Given Documented By: ANABEL Non-Admin Reason: NPO Montelukast Sodium (Montelukast Sodium 10 Mg Tablet) 10 mg PO DAILY [facility] Last Admin: 08/12/25 09:19 Dose: Not Given Documented By: ANABEL Non-Admin Reason: NPO Naloxone HCl (Naloxone Hcl 0.4 Mg/Ml Vial) 0.04 mg IVPUSH Q5M PRN PRN Reason: Excessive sedation or RR < 8 Ondansetron HCl (Ondansetron Hcl 4 Mg/2 Ml Vial) 4 mg IVPUSH Q6H PRN PRN Reason: Nausea and Vomiting Last Admin: 08/12/25 05:41 Dose: 4 mg Documented By: NICHO Oxycodone HCl (Oxycodone Hcl Immed Release 5 Mg Tablet) 5 mg PO Q4H PRN PRN Reason: Pain, Severe (Pain Scale 7-10) Last Admin: 08/12/25 05:01 Dose: 5 mg Documented By: NICHO Prochlorperazine Maleate (Prochlorperazine Maleate 5 Mg Tablet) 5 mg PO TID PRN PRN Reason: Nausea and Vomiting Last Admin: 08/11/25 15:56 Dose: 5 mg Documented By: AB Sodium Biphosphate/Sodium Phosphate (Sodium Phosphate,[place]-Dibasic 133 Ml Enema) 133 ml [place] ONCE PRN PRN Reason: for sigmoidscopy Last Admin: 08/12/25 07:37 Dose: 133 ml Documented By: ANABEL Sodium Biphosphate/Sodium Phosphate (Sodium Phosphate,[place]-Dibasic 133 Ml Enema) 133 ml [place] ONCE PRN PRN Reason: sigmoidoscopy Last Admin: 08/12/25 07:57 Dose: 133 ml Documented By: ANABEL Sodium Chloride (0.9 % Sodium Chloride Flush 3 Ml [facility]) [facility] Admin: 08/12/25 08:02 Dose: 3 ml Documented By: ANABEL Vitamin D (Cholecalciferol (Vitamin D3) 25 Mcg Tablet) 25 mcg PO DAILY [facility] Last Admin: 08/12/25 09:16 Dose: Not Given Documented By: ANABEL Non-Admin Reason: NPO Zolpidem Tartrate (Zolpidem Tartrate 5 Mg Tablet) 5 mg PO BEDTIME PRN PRN Reason: Insomnia Last Admin: 08/11/25 20:44 Dose: 5 mg Documented By: NICHO Labs 08/12/25 05:48 08/12/25 05:48 Labs: Laboratory Results - last 24 hr 08/11/25 08/12/25 10:58 05:48 MCV 92.3 MCH 31.3 MCHC 33.9 RDW 15.3 Plt Count 241 MPV 10.1 Absolute Nucleated RBC 0.000 Nucleated RBC % (auto) 0.0 Anion Gap 10 L Estim Creat Clear Calc 30.1 Estimated GFR 36 Random Glucose 84 Calcium 8.0 L D Total Bilirubin 0.3 AST 25 ALT 21 Alkaline Phosphatase 66 Total Protein 4.0 L Albumin 2.4 L Stl C. cayetanensis PCR Not Detected Stool Rotavirus A PCR Not Detected Stl Adenov F 40/41 PCR Not Detected Stool Astrovirus (PCR) Not Detected Stool Campylobacter PCR Not Detected Stool Cryptosporidium PCR Not Detected Stl Sh Tox Pr E STEC PCR Not Detected Stool E coli O157 PCR Not applicable Stl Enterotoxigenic E PCR Not Detected Stool EPEC (PCR) Not Detected Stool EAEC (PCR) Not Detected Stl E. histolytica PCR Not Detected Stool Giardia Lamblia PCR Not Detected Stl P. 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 intake, and weight loss worsening over the past 5 days. possible colitis-with intractable nausea vomiting, also has diarrhea chornic pancreatitis + anastamosis ulcer ppi, carafate, creon Asthma: Mild intermittent stable DVT prophylaxis: SubQ Lovenox. full code reason for continued hospitalization: dispo planning Quality Stroke Does the patient have a stroke diagnosis?: No VTE Prior VTE?: No VTE Risk Level:: Medical - moderate - high VTE Device Contraindication: N/A - Device Ordered VTE Drug Contraindication: N/A - Med Ordered
[2025-08-12] MEDS: Albuterol Sulfate (0.042%) 1.25 MG/3 ML VIAL.NEB 2.5 MG INHALE (13:54)
--- NOTE | 2025-08-12 14:10 | P.DS_ITS ---
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 intake, and weight loss worsening over the past 5 days. Patient says that she has abdominal pain ever since she had abdominal surgery as above. Also has diarrhea from the same duration, she is having nausea vomiting for at least 1-2 month which is progressively worsening. Nausea vomiting can happen anytime not related to the food. Denies any fever or chills. Reports recent screening [facility] at [facility] on 07/25 showing chronic pancreatitis. Patient follows up with Dr. Pollock's office. Denies any new complaint of chest pain or shortness of breathor fever or chills Denies any cough Denies any weakness or numbness. hospital course: Patient was admitted for possible colitis with intractable nausea and vomiting this was secondary to chronic pancreatitis and had EGD which revealed anastomosis site ulcer. Recommended from Gastroenterology to continue PPI 40 mg b.i.d. and Carafate as well as pancreatic supplementation should follow up with Gastroenterology as outpatient. For urinary tract infection due to E coli we will be discharged on 5 more days of Bactrim. For mild intermittent asthma remained stable. Patient is able to tolerate p.o. and she will be discharged home. Time Attestation Discharge Coordination Time (in mins): 37 Quality: Safe Use of Opioids Does Pt have an Active Cancer Diagnosis on the Problem List?: No Quality: Stroke Does the patient have a stroke diagnosis?: No Physical Exam Exam: Exam: EXAM: GENERAL: The patient is relaxed VITAL SIGNS:see workflow HEENT: Nonicteric sclerae, PERRLA, EOMI. Oropharynx clear. Moist mucous membranes. Conjunctivae appear well perfused. No thyroid mass. CHEST: Chest wall is nontender. HEART: Regular rate and rhythm without murmurs. LUNGS: Clear to auscultation bilaterally. ABDOMEN: Soft, positive bowel sounds, nontender, no organomegaly.no flank tenderness SKIN: No rash, no excessive bruising, petechiae, or purpura. NEUROLOGIC: Cranial nerves II-XII intact without motor/sensory deficit. Psych: normal affect Vital Signs: Vital Signs: Last Vital Signs Temp 97.5 F 08/12/25 11:50 Pulse 46 L 08/12/25 13:54 Resp 16 08/12/25 13:54 BP 135/63 08/12/25 11:50 Pulse Ox 99 08/12/25 11:50 O2 Del Method Room Air 08/12/25 11:50 BMI result Body Mass Index 20.8 DS: Data Data Completed and Pending Completed studies during hospitalization [Text1]: Procedures Insertion of Endotracheal Airway into Trachea, Via Natural or Artificial Opening (12/26/22) Performance of Cardiac Output, Single, Manual (12/26/22) Respiratory Ventilation, 24-96 Consecutive Hours (12/26/22) Pending studies at discharge: Pending at discharge 08/12/25 10:32 Surgical [PTH] Routine Labs on day of discharge: Laboratory Results - last 24 hr 08/11/25 08/12/25 10:58 05:48 WBC 3.2 L RBC 2.46 L Hgb 7.7 L Hct 22.7 L MCV 92.3 MCH 31.3 MCHC 33.9 RDW 15.3 Plt Count 241 MPV 10.1 Absolute Nucleated RBC 0.000 Nucleated RBC % (auto) 0.0 Sodium 138 Potassium 3.7 Chloride 112 H Carbon Dioxide 20 L Anion Gap 10 L BUN 10 Creatinine 1.42 H Estim Creat Clear Calc 30.1 Estimated GFR 36 Random Glucose 84 Calcium 8.0 L D Total Bilirubin 0.3 AST 25 ALT 21 Alkaline Phosphatase 66 Total Protein 4.0 L Albumin 2.4 L Stl C. cayetanensis PCR Not Detected Stool Rotavirus A PCR Not Detected Stl Adenov F 40/41 PCR Not Detected Stool Astrovirus (PCR) Not Detected Stool Campylobacter PCR Not Detected Stool Cryptosporidium PCR Not Detected Stl Sh Tox Pr E STEC PCR Not Detected Stool E coli O157 PCR Not applicable Stl Enterotoxigenic E PCR Not Detected Stool EPEC (PCR) Not Detected Stool EAEC (PCR) Not Detected Stl E. histolytica PCR Not Detected Stool Giardia Lamblia PCR Not Detected Stl P. shigelloides PCR Not Detected Stool Salmonella PCR Not Detected Stool Sapovirus (PCR) Not Detected Stl Shigella/EIEC PCR Not Detected St Y.enterocolitica PCR Not Detected Stool Vibrio (PCR) Not Detected Stl Vibrio cholerae PCR Not Detected Stl Norovirus GI/GII PCR Not Detected Preliminary micro results at discharge 08/10/25 15:17 Urine Culture - Preliminary Urine clean catch - Clean Catch Midstream Escherichia coli Discharge Plan Discharge Anticipated Discharge Date/Time: 08/12/25 13:59 Patient Disposition: Home, Self-Care Discharge Diagnosis: pancreatitis, ulcer Referrals: Fish Baptiste MD [Physician, Gastroenterology] - 1 Week Po,Chiara Olivier MD [Primary Care Provider, Internal Medicine] - 1 Week Discharge Medications: New Creon 12,000-38,000 -60,000 unit Capsule,Delayed Release(Dr/Ec) 2 cap PO TIDWM 90 Days Qty: 540 0RF omeprazole 40 mg capsule,delayed release(DR/EC) 40 mg PO BID Qty: 180 0RF sucralfate [Carafate] 1 gram tablet 1 g PO QIDACHS 90 Days Qty: 240 0RF sulfamethoxazole-trimethoprim [Bactrim DS] 800-160 mg tablet 1 tab PO BID Qty: 10 0RF Continued (DME) nebulizers [Aeroneb Go Nebulizer] Misc See Rx Instructions .Route Qty: 1 0RF Rx Instructions: As directed updraft treatment every 4 hours p.r.n. montelukast [Singulair] 10 mg tablet 10 mg PO DAILY Qty: 90 3RF prochlorperazine maleate 5 mg tablet 5 mg PO TID PRN (Reason: nausea and vomiting) Qty: 30 2RF albuterol sulfate 90 mcg/actuation HFA aerosol inhaler 2 puff PO Q4H PRN (Reason: Respiratory Distress) Qty: 8.5 3RF duloxetine 60 mg capsule,delayed release(DR/EC) 60 mg PO DAILY Qty: 90 3RF hydrocodone-acetaminophen 5-325 mg tablet 1 tab PO Q4-6H PRN (Reason: pain) ketorolac 0.5 % drops 1 drp ophthalmic-Left TID albuterol sulfate 1.25 mg/3 mL solution for nebulization 2.5 mg continuous nebulization QID PRN (Reason: Shortness Of Breath Or Wheezing) Rx Instructions: INHALE 2 VIALS (6ML) VIA NEBULIZER 4 TIMES A DAY NEEDED FOR WHEEZE/SHORTNESS OF BREATH cholecalciferol (vitamin D3) [Vitamin D3] 25 mcg (1,000 unit) Tablet 25 mcg PO DAILY cyanocobalamin (vitamin B-12) 1,000 mcg capsule 1,000 mcg PO DAILY mesalamine 0.375 gram capsule,extended release 24hr 0.75 g PO DAILY zolpidem 10 mg tablet 10 mg PO BEDTIME PRN (Reason: insomnia) 90 Days Qty: 90 1RF Discharge Orders: Discharge Order (Routine); Ordered 08/12/25 Ordered By: Mariano Vazquez Diet: Advance to usual diet Activity on Discharge: As tolerated Stand Alone Forms: Patient Portal Discharge page Print Language: Czech Care Plan Goals: recovery Health Concerns: pancreatitis, ulcer Plan of Treatment: ppi, carafate, creon, follow up with GI Assessment: see above
[2025-08-12] MEDS: Ketorolac Tromethamine 0.5% Op 5 ML DROPS 1 DROP EYE-LEFT (15:33)
[2025-08-12] MEDS: Lipase/Prot/Amylase 12/38/60K CAPSULE.DR 2 CAP PO (16:24)
== END 2025-08-12 19:05 | disposition home or self-care (01) ==
LOC: HO.ED 15:38 → HO.EDOVER 16:14 → HO.S3 08-11 07:28
PROVIDERS: Internal Medicine; Internal Medicine Gastroenterology; Physician Assistant; Admitting Provider Student in an Organized Health Care Education/Training Program; Emergency Provider Emergency Medicine; PCP Internal Medicine; Visit Provider Internal Medicine
PROC: 0DJ08ZZ Inspection of Upper Intestinal Tract, Via Natural or Artificial Opening Endoscopic (ICD-10-PCS; CPT 43235; principal; 2025-08-12 11:50)
PROC: 0DJD8ZZ Inspection of Lower Intestinal Tract, Via Natural or Artificial Opening Endoscopic (ICD-10-PCS; CPT 45330; 2025-08-12 11:50)
DX: R10.10 Upper abdominal pain, unspecified (principal); K28.9 Gastrojejunal ulcer, unspecified as acute or chronic, without hemorrhage or perforation; K29.70 Gastritis, unspecified, without bleeding; K63.5 Polyp of colon; K86.1 Other chronic pancreatitis; I95.9 Hypotension, unspecified; R11.2 Nausea with vomiting, unspecified; I48.91 Unspecified atrial fibrillation; I10 Essential (primary) hypertension; E78.5 Hyperlipidemia, unspecified; K52.9 Noninfective gastroenteritis and colitis, unspecified; J45.20 Mild intermittent asthma, uncomplicated; K21.9 Gastro-esophageal reflux disease without esophagitis; Z79.899 Other long term (current) drug therapy; Z86.718 Personal history of other venous thrombosis and embolism
CPT/HCPCS: 43239; 45331; 36415; 74177; 80053; 81001; 82248; 83605; 83690; 83735; 84484; 85025; 85027; 85610; 85730; 87086; 87088; 87186; 87493; 87507; 88305; 88313; 88342; 93005; 94640; 96361; 96365; 96366; 96372; 96375; 96376; 99221; 99285; J1171; J1650; J2003; J2185; J2270; J2405; J2470; J2543; J2704; J2765; J7120; Q9967

== ENCOUNTER → 2025-08-10 11:53 | Outpatient (BNV) | payer MEDICARE, BC, SELFPAY | PROVIDERS: Emergency Provider Emergency Medicine; PCP Internal Medicine; Visit Provider Internal Medicine Cardiovascular Disease | DX: R94.31 Abnormal electrocardiogram [ECG] [EKG] (principal); R10.9 Unspecified abdominal pain | CPT/HCPCS: 93010 ==

== ENCOUNTER → 2025-08-10 12:44 | Outpatient (BNV) | payer MEDICARE, BC, SELFPAY | PROVIDERS: Emergency Provider Emergency Medicine; PCP Internal Medicine; Visit Provider Radiology Diagnostic Radiology | DX: K86.1 Other chronic pancreatitis (principal); K76.0 Fatty (change of) liver, not elsewhere classified; M51.369 Other intervertebral disc degeneration, lumbar region without mention of lumbar back pain or lower extremity pain; Z90.5 Acquired absence of kidney | CPT/HCPCS: 74177 ==

== ENCOUNTER → 2025-08-10 15:56 | Outpatient (BNV) | payer BC, MEDICARE, SELFPAY | PROVIDERS: Admitting Provider Student in an Organized Health Care Education/Training Program; Emergency Provider Emergency Medicine; PCP Internal Medicine; Visit Provider Internal Medicine | DX: Z86.718 Personal history of other venous thrombosis and embolism (principal); K52.9 Noninfective gastroenteritis and colitis, unspecified | CPT/HCPCS: 99222; 99231; 99239 ==

== ENCOUNTER → 2025-08-10 15:56 | Outpatient (BNV) | payer BC, MEDICARE, SELFPAY | PROVIDERS: Admitting Provider Student in an Organized Health Care Education/Training Program; Emergency Provider Emergency Medicine; PCP Internal Medicine; Visit Provider Internal Medicine Gastroenterology | DX: K29.70 Gastritis, unspecified, without bleeding (principal) | CPT/HCPCS: 99223 ==

== ENCOUNTER 2025-10-03 09:59 | Outpatient (REF) | payer BC, MEDICARE, SELFPAY ==
--- NOTE | ~2025-10-03 | CT_ITS ---
EXAMINATION: CT HEAD WITHOUT CONTRAST CLINICAL INFORMATION: R51.9 - Headache, unspecified COMPARISON: December 31, 2022. TECHNIQUE: Contiguous axial imaging was performed from the skull base to vertex without intravenous administration of contrast. This CT examination was performed using dose optimization techniques as appropriate, variously including the following: *Automated exposure control *Adjustment of mA and/or kV according to patient size (this includes techniques or standardized protocols for targeted exams where dose is matched to indication/reason for exam; i.e. extremities or head) *Use of iterative reconstruction technique DLP: 722 mGy-cm FINDINGS: No acute cortical disruption, bony calvarium. No acute intracranial hemorrhage, mass effect, midline shift, hydrocephalus or herniation. Reddy-white matter differentiation is normal. Old lacunar infarct, basal ganglia and extracapsular. Prominence of the extra-axial CSF spaces cerebral sulci and ventricles. Calcified plaques, V4 segments of the vertebral arteries, cavernous and supracavernous segments both ICAs. Posterior cranial fossa contents demonstrated no gross mass effect or acute hemorrhage. Normal position of the cerebellar tonsils. Sellar/suprasellar region demonstrated no gross masses. Retention cysts versus polyp, left maxillary sinus. Tympanic cavities and mastoid cells are aerated. Punctate calcifications in the optic disc region. CT/CT head/brain wo IV con IMPRESSION: No acute intracranial hemorrhage. 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 Left maxillary sinus disease. Electronically signed by: Esteban Ahuja MD 10/05/2025 07:24 AM [facility]
--- OUTSIDE RECORDS SUMMARY | 2025-10-03 10:03 | XMS_ITS | Encounter Summary ---
Author Organization [facility] Address [address] [place] [address] Phone Care Team Providers Care Fruit Canner Name Role Phone Chiara Diggs MD Primary Care Provider [phone] Joelle Grande MD, MSc Unavailable Oly Kraus MD, MPH Unavailable + [phone] Valerie Conti MD Unavailable [phone] Daryn Donohue MD Unavailable [phone] Savanna Banegas Unavailable Cris Aburto SUPERVISOR SALVAGE Unavailable [phone] Arlin Cherry SUPERVISOR SALVAGE Unavailable [phone] Shun Schuster MD Unavailable Portia [email or web address] Jaspal Pettit MD Unavailable Joelle Grande MD, MSc Unavailable Danuta Patel MD Unavailable [phone] Encounter Details Date Type Department Care Team (Late st Contact Info) Description 04/07/2020 [facility], [facility] [place], [place] [address] [facility], Floor [address]1 [place] [address] Social History Tobacco Use Types Packs/Day Years [...] Procedure Pass [facility] Imaging Department, [facility], [place] [address] [facility], [facility] [address] [place] [address] 07/29/2025 Procedure Pass [facility] Imaging Department, [facility] [place] [address] [facility], [facility] [address] [place] [address] 07/31/2026 1:40 PM EDT Appointment [facility] Imaging Department, [facility] [place] [address] [facility], [facility] [address] [place] [address] Danuta Patel MD [address] [place] [address] Agnes@[email or web address] 08/04/2026 10:30 AM EDT [facility], [address], 6th [place] [address] Danuta Patel MD [address] [place] [address] Agnes@[email or web address] documented as of this encounter Visit Diagnoses [...] documented as of this encounter Care Teams Fruit Canner Relationship Specialty Start Date End Date Chiara Diggs MD [address] [place] [address] [address] [place] [phone] PCP - General Internal Medicine 07/25/18 Joelle Grande MD, MSc [address] [place] [address] JOSÉ MANUEL@[email or web address] Surgeon Surgical Oncology 08/15/18 Oly Kraus MD, MPH [address] [place] [phone] [email or web address] Primary Oncologist Radiation Oncology 08/15/18 Valerie Conti MD [address] [place] [id number] [email or web address] Primary Oncologist Medical Oncology 08/15/18 04/11/20 Daryn Donohue MD [address] [place] [phone] Referring Physician Urology 08/19/18 Savanna Banegas [address] [place] [address] NESTOR@[email or web address] Van Driver Helper 08/19/18 Cris Aburto, [facility] [address] [place] [address] [email or web address] Senior Sales Engineer 12/26/18 Arlin Cherry, [address] [address] Maykel@[email or web address] Senior Sales Engineer Oncology 07/26/19 Shun Schuster MD [email or web address] Primary Oncologist Medical Oncology 04/12/20 06/21/21 Jaspal Ordoñez MD [address] [place] [address] [email or web address] Palliative Care 12/22/20 Joelle Grande MD, MSc [address] [place] [address] JOSÉ MANUEL@[email or web address] Surgical Oncology 03/07/21 Danuta Patel MD [address] [place] [phone] [email or web address] Medical Oncology 06/22/21 documented as of this encounter Additional Source Comments The information contained in this document represents components of the legal health record. It is not the complete legal health record.[facility]
--- OUTSIDE RECORDS SUMMARY | 2025-10-03 10:03 | XMS_ITS | Encounter Summary ---
Author Organization [facility] Address [address] [place] [address] Phone Care Team Providers Care Bleach Maker Name Role Phone Chiara Diggs MD Primary Care Provider [phone] Joelle Grande MD, MSc Unavailable Oly Kraus MD, MPH Unavailable + [phone] Daryn Donohue MD Unavailable Savanna Banegas Unavailable Cris Aburto FRUIT BAR MAKER Unavailable [phone] Arlin Cherry FRUIT BAR MAKER Unavailable [phone] Shun Schuster MD Unavailable Portia [email or web address] Jaspal Pettit MD Unavailable Joelle Grande MD, MSc Unavailable Danuta Patel MD Unavailable [phone] Encounter Details Date Type Department Care Team (Late st Contact Info) Description 05/19/2020 Procedure [facility], [facility] [place], [place] [address] [facility], Floor [address]1 [place] [address] Social History Tobacco Use Types Packs/Day Years [...] st Contact Info) Description 07/29/2025 Procedure Pass [facility] Imaging Department, [facility], [place] [address] [facility], Floor [address] [place] [address] 07/29/2025 Procedure Pass [facility] Imaging Department, [facility], [place] [address] [facility], Floor [address] [place] [address] 07/31/2026 1:40 PM EDT Appointment [facility] Imaging Department, [facility], [place] [address] [facility], Floor [address] [place] [address] Danuta Patel MD [address] [place] [phone] Agnes@[email or web address] 08/04/2026 10:30 AM EDT [facility], [address], 6th [place] [address] Danuta Patel MD [address] [place] [phone] Agnes@[email or web address] documented as of this encounter [...] documented as of this encounter Care Teams Bleach Maker Relationship Specialty Start Date End Date Chiara Diggs MD [address] [place] [address] [address] [place] [phone] PCP - General Internal Medicine 07/25/18 Joelle Grande MD, MSc [address] [place] [phone] JOSÉ MANUEL@[facility] Surgeon Surgical Oncology 08/15/18 Oly Kraus MD, MPH [address] [place] [address] [email or web address] Primary Oncologist Radiation Oncology 08/15/18 Daryn Donohue MD [address] [place] [address] Referring Physician Urology 08/19/18 Savanna Banegas [address] [place] [address] [email or web address] Wheel And Pinion Inspector 08/19/18 Cris Aburto [address] [address] [email or web address] Range Scientist 12/26/18 Arlin Cherry, [facility] [address] [place] [address] Maykel@[email or web address] Range Scientist Oncology 07/26/19 Shun Schuster MD [email or web address] Primary Oncologist Medical Oncology 04/12/20 06/21/21 Jaspal Ordoñez MD [address] [place] [address] [email or web address] Palliative Care 12/22/20 Joelle Grande MD, MSc [address] [place] [address] JOSÉ MANUEL@[email or web address] Surgical Oncology 03/07/21 Danuta Patel MD [address] [place] [phone] [email or web address] Medical Oncology 06/22/21 documented as of this encounter Additional Source Comments The information contained in this document represents components of the legal health record. It is not the complete legal health record.[facility]
--- OUTSIDE RECORDS SUMMARY | 2025-10-03 10:03 | XMS_ITS | Encounter Summary ---
Author Organization [facility] Address [address] [place] [address] Phone Care Team Providers Care Social Research Assistant Name Role Phone Chiara Diggs MD Primary Care Provider [phone] Joelle Grande MD, MSc Unavailable Oly Kraus MD, MPH Unavailable + [phone] Daryn Donohue MD Unavailable Savanna Banegas Unavailable Cris Aburto RUBBER STAMP DIE INSPECTOR Unavailable + [phone] Arlin Cherry RUBBER STAMP DIE INSPECTOR Unavailable [phone] Jaspal Ordoñez MD Unavailable Joelle Grande MD, MSc Unavailable Danuta Patel MD Unavailable [phone] Encounter Details Date Type Department Care Team (Late st Contact Info) Description 01/18/2022 Procedure [facility], [facility] [place], [place] [address] [facility], Floor [address] [place] [address] Social History Tobacco Use Types Packs/Day Years [...] Info) Description 07/29/2025 Procedure Pass [facility] Imaging Department, [facility], [place] [address] [facility], Floor [address] [place] [address] 07/29/2025 Procedure Pass [facility] Imaging Department, [facility], [place] [address] [facility], Floor [address] [place] [address] 07/31/2026 1:40 PM EDT Appointment [facility] Imaging Department, [facility], [place] [address] [facility], Floor [address] [place] [address] Danuta Patel MD [address] [place] [phone] Agnes@[facility] 08/04/2026 10:30 AM EDT [facility], [address], 6th [place] [address] Danuta Patel MD [address] [place] [phone] Agnes@[facility] documented as of this encounter Visit Diagnoses Not on filedocumented in this encounter Additional Health Concerns 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 02/28/2019 12/20/2022 1:[address] Assessment Noted Time PHQ-2 Depression Total Score: 0 11/12/19 1:45 PM EST documented as of this encounter Care Teams Social Research Assistant Relationship Specialty Start Date End Date Dontae Chiara Crandall MD [address] [place] [address] [address] [place] [phone] PCP - General Internal Medicine 07/25/18 Joelle Grande MD, MSc [address] [place] [address] JOSÉ MANUEL@[facility] Surgeon Surgical Oncology 08/15/18 Oly Kraus MD, MPH [address] [place] [phone] [email or web address] Primary Oncologist Radiation Oncology 08/15/18 Daryn Donohue MD [address] [place] [address] Referring Physician Urology 08/19/18 Savanna Banegas [address] [place] [phone] NESTOR@[email or web address] Manager Business Systems 08/19/18 Cris Aburto, [address] [address] [email or web address] Gear Keeper 12/26/18 Arlin Cherry, [address] [address] Maykel@[facility] Gear Keeper Oncology 07/26/19 Jaspal Ordoñez MD [address] [place] [address] [email or web address] Palliative Care 12/22/20 Joelle Grande MD, MSc [address] [place] [address] JOSÉ [email or web address] Surgical Oncology 03/07/21 Danuta Patel MD [address] [place] [address] [email or web address] Medical Oncology 06/22/21 documented as of this encounter Additional Source Comments The information contained in this document represents components of the legal health record. It is not the complete legal health record.[facility]
--- OUTSIDE RECORDS SUMMARY | 2025-10-03 10:03 | XMS_ITS | Encounter Summary ---
Author Organization [facility] Address [address] [place] [address] Phone Care Team Providers Care Divorce Attorney Name Role Phone Chiara Diggs MD Primary Care Provider [phone] Joelle Grande MD, MSc Unavailable Oly Kraus MD, MPH Unavailable + [phone] Valerie Conti MD Unavailable [phone] Daryn Donohue MD Unavailable [phone] Savanna Banegas Unavailable Cris Aburto LABOR RELATIONS ANALYST Unavailable [phone] Arlin Cherry LABOR RELATIONS ANALYST Unavailable [phone] Shun Schuster MD Unavailable Portia [email or web address]. Jaspal Pettit MD Unavailable Joelle Grande MD, MSc Unavailable Danuta Patel MD Unavailable [phone] Encounter Details Date Type Department Care Team (Late st Contact Info) Description 04/07/2020 Procedure [facility] Imaging [facility], [facility] [facility] [place], [place] [address] [facility], Floor [address] [place] [address] Social History Tobacco Use Types Packs/Day Years [...] st Contact Info) Description 07/29/2025 Procedure Pass [facility] Imaging Department, [facility], [place] [address] [facility], [facility] L1 [place] [address] 07/29/2025 Procedure Pass [facility] Imaging Department, [facility], [place] [address] [facility], [facility] L1 [place] [address] 07/31/2026 1:40 PM EDT Appointment [facility] Imaging Department, [facility] [place] [address] [facility], [facility] L1 [place] [address] Danuta Patel MD [address] [place] [phone] Agnes@[email or web address] 08/04/2026 10:30 AM EDT [facility], [address], [address]th [place] [address] Danuta Patel MD [address] [place] [phone] Agnes@[email or web address] documented as of this encounter Visit [...] documented as of this encounter Care Teams Divorce Attorney Relationship Specialty Start Date End Date Chiara Diggs MD [address] [place] [address] [address] [place] [phone] PCP - General Internal Medicine 07/25/18 Joelle Grande MD, MSc [address] [place] [phone] JOSÉ MANUEL@[email or web address] Surgeon Surgical Oncology 08/15/18 Oly Kraus MD, MPH [address] [place] [phone] Lolis@[email or web address] Primary Oncologist Radiation Oncology 08/15/18 Valerie Conti MD [address] [place] [phone] Mariusz@[email or web address] Primary Oncologist Medical Oncology 08/15/18 04/11/20 Daryn Donohue MD [address] [place] [address] Referring Physician Urology 08/19/18 Savanna Banegas [address] [place] [phone] NESTOR@[facility] Textile Bag Sewer 08/19/18 Cris Aburto, [facility] [address] [place] [address] [email or web address] Scientific Informatics Leader 12/26/18 Arlin Cherry, [address] [address] Maykel@[facility] Scientific Informatics Leader Oncology 07/26/19 Shun Schuster MD [email or web address] Primary Oncologist Medical Oncology 04/12/20 06/21/21 Jaspal Ordoñez MD [address] [place] [phone] [email or web address] Palliative Care 12/22/20 Joelle Grande MD, MSc [address] [place] [phone] JOSÉ MANUEL@[facility] Surgical Oncology 03/07/21 Danuta Patel MD [address] [place] [phone] Agnes@[email or web address] Medical Oncology 06/22/21 documented as of this encounter Additional Source Comments The information contained in this document represents components of the legal health record. It is not the complete legal health record.[facility]
--- OUTSIDE RECORDS SUMMARY | 2025-10-03 10:03 | XMS_ITS | Encounter Summary ---
Author Organization [facility] Address [address] [place] [address] Phone Care Team Providers Care Accounting Analyst Name Role Phone Chiara Diggs MD Primary Care Provider [phone] Joelle Grande MD, MSc Unavailable Oly Kraus MD, MPH Unavailable + [phone] Daryn Donohue MD Unavailable Savanna Banegas Unavailable Cris Aburto DISH MACHINE OPERATOR Unavailable +[phone] Arlin Cherry DISH MACHINE OPERATOR Unavailable +[phone] Shun Schuster MD Unavailable Portia [email or web address] Jaspal Pettit MD Unavailable Joelle Grande MD, MSc Unavailable Danuta Patel MD Unavailable [phone] Encounter Details Date Type Department Care Team (Late st Contact Info) Description 05/19/2020 Procedure [facility], [facility] [place], [place] [address] [facility], Floor L1 [place] [address] Social History Tobacco Use Types Packs/Day Years [...] Info) Description 07/29/2025 Procedure Pass [facility] Imaging Department, [facility] [place] [address] [facility], Floor L1 [place] [address] 07/29/2025 Procedure Pass [facility] Imaging Department, [facility] [place] [address] [facility], Floor L1 [place] [address] 07/31/2026 1:40 PM EDT Appointment [facility] Imaging Department, [facility] [address] [facility], Floor L1 [place] [address] Danuta Patel MD [address] [place] [address] Agnes@[facility] 08/04/2026 10:30 AM EDT [facility], [address], 6th [place] [address] Danuta Patel MD [address] [place] [address] Agnes@[facility] documented as of this encounter Visit [...] as of this encounter Care Teams Accounting Analyst Relationship Specialty Start Date End Date Chiara Diggs MD [address] [place] [address] [address] [place] [phone] PCP - General Internal Medicine 07/25/18 Joelle Grande MD, MSc [address] [place] [address] JOSÉ MANUEL@[facility] Surgeon Surgical Oncology 08/15/18 Oly Kraus MD, MPH [address] [place] [address] Lolis@[email or web address] Primary Oncologist Radiation Oncology 08/15/18 Daryn Donohue MD [address] [place] [address] Referring Physician Urology 08/19/18 Savanna Banegas [address] [place] [address] NESTOR@[facility] Toll Lineman 08/19/18 Cris Aburto [address] [address] [email or web address] Approver 12/26/18 Arlin Cherry, [facility] [address] [place] [address] Maykel@[facility] Approver Oncology 07/26/19 Shun Schuster MD Rohan@[email or web address] Primary Oncologist Medical Oncology 04/12/20 06/21/21 Jaspal Ordoñez MD [address] [place] [address] [email or web address] Palliative Care 12/22/20 Joelle Grande MD, MSc [address] [place] [address] JOSÉ MANUEL@[email or web address] Surgical Oncology 03/07/21 Danuta Patel MD [address] [place] [address] Agnes@[facility] Medical Oncology 06/22/21 documented as of this encounter Additional Source Comments The information contained in this document represents components of the legal health record. It is not the complete legal health record.[facility]
--- OUTSIDE RECORDS SUMMARY | 2025-10-03 10:03 | XMS_ITS | Encounter Summary ---
Author Organization [facility] Address [address] [place] [address] Phone Care Team Providers Care Linotype Operator Name Role Phone Chiara Diggs MD Primary Care Provider Joelle Grande MD, MSc Unavailable Oly Kraus MD, MPH Unavailable + [phone] Daryn Donohue MD Unavailable Savanna Banegas Unavailable Cris Aburto SHOE POLISHER Unavailable + [phone] Arlin Cherry SHOE POLISHER Unavailable [phone] Jaspal Ordoñez MD Unavailable Joelle Grande MD, MSc Unavailable Danuta Patel MD Unavailable [phone] Encounter Details Date Type Department Care Team (Late st Contact Info) Description 01/18/2022 Procedure Pass [facility], [facility] [place] [address] [facility], Floor L1 [place] [address] Social History Tobacco Use Types Packs/Day Years [...] st Contact Info) Description 07/29/2025 Procedure Pass [facility] Imaging Department, [facility] [place] [address] [facility], Floor L1 [place] [address] 07/29/2025 Procedure Pass [facility] Imaging Department, [facility] [place] [address] [facility], Floor L1 [place] [address] 07/31/2026 1:40 PM EDT Appointment [facility] Imaging Department, [facility], [place] [address] [facility], Floor L1 [place] [address] Danuta Patel MD [address] [place] [address] Agnes@[facility] 08/04/2026 10:30 AM EDT [facility], [address], 6th [place] [address] Danuta Patel MD [address] [place] [address] Agnes@[facility] documented as of this encounter Visit Diagnoses Not on filedocumented in this encounter Additional Health Concerns 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 02/28/2019 12/20/2022 1:[address] Assessment Noted Time PHQ-2 Depression Total Score: 0 11/12/19 1:45 PM EST documented as of this encounter Care Teams Linotype Operator Relationship Specialty Start Date End Date Dontae Chiara Crandall MD [address] [place] [address] [address] [place] [phone] PCP - General Internal Medicine 07/25/18 Joelle Grande MD, MSc [address] [place] [address] JOSÉ MANUEL@[facility] Surgeon Surgical Oncology 08/15/18 Oly Kraus MD, MPH [address] [place] [address] Lolis@[facility] Primary Oncologist Radiation Oncology 08/15/18 Daryn Donohue MD [address] [place] [address] Referring Physician Urology 08/19/18 Savanna Banegas [address] [place] [address] NESTOR@[facility] Sand Conditioner 08/19/18 Cris Aburto, [address] [address] [email or web address] Civil Preparedness Officer 12/26/18 Arlin Cherry, [address] [address] Maykel@[facility] Civil Preparedness Officer Oncology 07/26/19 Jaspal Ordoñez MD [address] [place] [address] [email or web address] Palliative Care 12/22/20 Joelle Grande MD, MSc [address] [place] [address] JOSÉ MANUEL@[email or web address] Surgical Oncology 03/07/21 Danuta Patel MD [address] [place] [address] Agnes@[email or web address] Medical Oncology 06/22/21 documented as of this encounter Additional Source Comments The information contained in this document represents components of the legal health record. It is not the complete legal health record.[facility]
--- OUTSIDE RECORDS SUMMARY | 2025-10-03 10:04 | XMS_ITS | Encounter Summary ---
Author Organization [facility] Address [address] [place] [address] Phone Care Team Providers Care Municipal Maintenance Worker Name Role Phone Chiara Diggs MD Primary Care Provider [phone] Joelle Grande MD, MSc Unavailable Oly Kraus MD, MPH Unavailable + [phone] Valerie Conti MD Unavailable [phone] Daryn Donohue MD Unavailable [phone] Savanna Banegas Unavailable Sindy Isaacs STEAM SHOVEL RUNNER Unavailable [phone] Cris Aburto STEAM SHOVEL RUNNER Unavailable [phone] Arlin Cherry STEAM SHOVEL RUNNER Unavailable [phone] Shun Schuster MD Unavailable Portia [email or web address] Jaspal Pettit MD Unavailable Joelle Grande MD, MSc Unavailable Danuta Patel MD Unavailable [phone] Encounter Details Date Type Department Care Team (Late st Contact Info) Description 12/24/2018 Transcribe Orders [facility] Echocardiography [address] [place] [address] Chiara Diggs MD [address] [place] [phone] Social History Tobacco Use Types Packs/Day [...] Procedure Pass [facility] Imaging Department, [facility] [place] [address] [facility], Floor L1 [place] [address] 07/29/2025 Procedure Pass [facility] Imaging Department, [facility] [place] [address] [facility], Floor L1 [place] [address] 07/31/2026 1:40 PM EDT Appointment [facility] Imaging Department, [facility] [place] [address] [facility], Floor L1 [place] [address] Danuta Patel MD [address] [place] [address] Agnes@[facility] 08/04/2026 10:30 AM EDT [facility], [address], 6th [place] [address] Danuta Patel MD [address] [place] [address] Agnes@[facility] documented as of this [...] documented as of this encounter Care Teams Municipal Maintenance Worker Relationship Specialty Start Date End Date Po, Chiara Crandall MD [address] [place] [address] [address] [place] [phone] PCP - General Internal Medicine 07/25/18 Joelle Grande MD, MSc [address] [place] [address] JOSÉ MANUEL@[facility] Surgeon Surgical Oncology 08/15/18 Oly Kraus MD, MPH [address] [place] [address] Lolis@[facility] Primary Oncologist Radiation Oncology 08/15/18 Valerie Conti MD [address] [address] [email or web address] Primary Oncologist Medical Oncology 08/15/18 04/11/20 Daryn Donohue MD [address] [place] [address] Referring Physician Urology 08/19/18 Savanna Banegas [address] [place] [address] NESTOR@[facility] Sales Assistant Institutional Sales 08/19/18 Sindy Isaacs, [address] [address] Gregorio@[email or web address] Teacher Adult Education Oncology 09/16/18 07/25/19 Cris Aburto, [address] [address] [email or web address] Teacher Adult Education 12/26/18 Arlin Cherry, [place] [address] Maykel@[facility] Teacher Adult Education Oncology 07/26/19 Shun Schuster MD Rohan@[facility] Primary Oncologist Medical Oncology 04/12/20 06/21/21 Jaspal Ordoñez MD [address] [place] [address] [email or web address] Palliative Care 12/22/20 Joelle Grande MD, MSc [address] [place] [address] JOSÉ MANUEL@[facility] Surgical Oncology 03/07/21 Danuta Patel MD [address] [address] Agnes@[facility] Medical Oncology 06/22/21 documented as of this encounter Additional Source Comments The information contained in this document represents components of the legal health record. It is not the complete legal health record.[facility]
--- OUTSIDE RECORDS SUMMARY | 2025-10-03 10:04 | XMS_ITS | Encounter Summary ---
Author Organization [facility] Address [address] [place] [address] Phone Care Team Providers Care Decorator Lighting Fixtures Name Role Phone Chiara Diggs MD Primary Care Provider [phone] Joelle Grande MD, MSc Unavailable Oly Kraus MD, MPH Unavailable + [phone] Daryn Donohue MD Unavailable [phone] Savanna Banegas Unavailable Cris Aburto SAFETY RELIEF VALVE TECHNICIAN Unavailable [phone] Arlin Cherry SAFETY RELIEF VALVE TECHNICIAN Unavailable [phone] Shun Schuster MD Unavailable Portia [email or web address] Jaspal Pettit MD Unavailable Joelle Grande MD, MSc Unavailable Danuta Patel MD Unavailable [phone] Encounter Details Date Type Department Care Team (Late st Contact Info) Description 12/22/2020 Procedure Pass [facility], [facility] [place] [address] [facility], Floor L1 [place] [address] Social History Tobacco Use Types Packs/Day Years [...] Pass [facility] Imaging Department, [facility] [address] [facility], Floor L1 [place] [address] 07/29/2025 Procedure Pass [facility] Imaging Department, [facility] [address] [facility], Floor L1 [place] [address] 07/31/2026 1:40 PM EDT Appointment [facility] Imaging Department, [facility], [place] [address] [facility], Floor L1 [place] [address] Danuta Patel MD [address] [place] [address] Agnes@[facility] 08/04/2026 10:30 AM EDT [facility], [address], 6th [place] [address] Danuta Patel MD [address] [place] [address] Agnes@[facility] documented as of this [...] documented as of this encounter Care Teams Decorator Lighting Fixtures Relationship Specialty Start Date End Date Chiara Diggs MD [address] [place] [address] [place] [phone] PCP - General Internal Medicine 07/25/18 Joelle Grande MD, MSc [address] [place] [address] JOSÉ MANUEL@[facility] Surgeon Surgical Oncology 08/15/18 Oly Kraus MD, MPH [address] [place] [address] Lolis@[email or web address] Primary Oncologist Radiation Oncology 08/15/18 Daryn Donohue MD [address] [place] [address] Referring Physician Urology 08/19/18 Savanna Banegas [address] [place] [address] NESTOR@[facility] Recruiting Operations Consultant 08/19/18 Cris Aburto, [address] [address] delvin@[facility] Manager Pest 12/26/18 Arlin Cherry, [facility] [address] [place] [address] Maykel@[facility] Manager Pest Oncology 07/26/19 Shun Schuster MD Rohan@[email or web address] Primary Oncologist Medical Oncology 04/12/20 06/21/21 Jaspal Ordoñez MD [address] [place] [address] [email or web address] Palliative Care 12/22/20 Joelle Grande MD, MSc [address] [place] [address] JOSÉ MANUEL@[facility] Surgical Oncology 03/07/21 Danuta Patel MD [address] [place] [address] Agnes@[facility] Medical Oncology 06/22/21 documented as of this encounter Additional Source Comments The information contained in this document represents components of the legal health record. It is not the complete legal health record.[facility]
--- OUTSIDE RECORDS SUMMARY | 2025-10-03 10:04 | XMS_ITS | Encounter Summary ---
Author Organization [facility] Address [address] [place] [address] Phone Care Team Providers Care Product Development Director Name Role Phone Chiara Diggs MD Primary Care Provider [phone] Joelle Grande MD, MSc Unavailable Oly Kraus MD, MPH Unavailable + [phone] Daryn Donohue MD Unavailable Savanna Banegas Unavailable Cris Aburto MOHS SURGEON Unavailable + [phone] Arlin Cherry MOHS SURGEON Unavailable [phone] Jaspal Ordoñez MD Unavailable Joelle Grande MD, MSc Unavailable Danuta Patel MD Unavailable [phone] Encounter Details Date Type Department Care Team (Late st Contact Info) Description 04/25/2023 Procedure Pass [facility] [address] [place] [address] Social History Tobacco Use Types Packs/Day Years [...] Contact Info) Description 07/29/2025 Procedure Pass [facility] Imaging Department, [facility], [place] [address] [facility], Floor [address]1 [place] [address] 07/29/2025 Procedure Pass [facility] Imaging Department, [facility], [place] [address] [facility], Floor [address]1 [place] [address] 07/31/2026 1:40 PM EDT Appointment [facility] Imaging Department, [facility], [place] [address] [facility], Floor [address]1 [place] [address] Danuta Patel MD [address] [place] [address] Agnes@[facility] 08/04/2026 10:30 AM EDT [facility], [address], 6th [place] [address] Danuta Patel MD [address] [place] [address] Agnes@[facility] documented as of this encounter Visit Diagnoses Not on filedocumented in this encounter Additional Health Concerns Assessment Noted Time PHQ-2 Depression Total Score: 0 11/12/19 20 1:45 PM EST documented as of this encounter Care Teams Product Development Director Relationship Specialty Start Date End Date Chiara Diggs MD [address] [place] [address] [place] [phone] PCP - General Internal Medicine 07/25/18 Joelle Grande MD, MSc [address] [place] [address] JOSÉ MANUEL@[facility] Surgeon Surgical Oncology 08/15/18 Oly Kraus MD, MPH [address] [place] [address] Lolis@[email or web address] Primary Oncologist Radiation Oncology 08/15/18 Daryn Donohue MD [address] [place] [address] Referring Physician Urology 08/19/18 Savanna Banegas [address] [place] [address] NESTOR@[facility] Automobile Service Station Manager 08/19/18 Cris Aburto, [address] [address] [email or web address] Pricing Associate 12/26/18 Arlin Cherry, [address] [address] Maykel@[facility] Pricing Associate Oncology 07/26/19 Jaspal Ordoñez MD [address] [place] [address] [email or web address] Palliative Care 12/22/20 Joelle Grande MD, MSc [address] [place] [address] JOSÉ MANUEL@[facility] Surgical Oncology 03/07/21 Danuta Patel MD [address] [place] [address] Agnes@[email or web address] Medical Oncology 06/22/21 documented as of this encounter Additional Source Comments The information contained in this document represents components of the legal health record. It is not the complete legal health record.[facility]
--- OUTSIDE RECORDS SUMMARY | 2025-10-03 10:04 | XMS_ITS | Encounter Summary ---
Author Organization [facility] Address [address] [place] [address] Phone Care Team Providers Care Solar Tech Name Role Phone hCiara Diggs MD Primary Care Provider [phone] Joelle Grande MD, MSc Unavailable Oly Kraus MD, MPH Unavailable + [phone] Valerie Conti MD Unavailable [phone] Daryn Donohue MD Unavailable Savanna Banegas Unavailable Sindy Isaacs FIRE CLAIMS ADJUSTER Unavailable [phone] Cris Aburto FIRE CLAIMS ADJUSTER Unavailable +[phone] Arlin Cherry FIRE CLAIMS ADJUSTER Unavailable [phone] Shun Schuster MD Unavailable Portia [email or web address] Jaspal Pettit MD Unavailable Joelle Grande MD, MSc Unavailable Danuta Patel MD Unavailable [phone] Encounter Details Date Type Department Care Team (Late st Contact Info) Description 02/04/2019 Procedure Pass [facility] Endoscopy Department [address] [place] [address] Social History Tobacco Use Types Packs/Day Years [...] Upcoming Encounters Date Type Department Care Team ([facility] st Contact Info) Description 07/29/2025 Procedure Pass [facility] Imaging Department, [facility] [place] [address] [facility], Floor L1 [place] [address] 07/29/2025 Procedure Pass [facility] Imaging Department, [facility] [address] [facility], Floor L1 [place] [address] 07/31/2026 1:40 PM EDT Appointment [facility] Imaging Department, [facility] [place] [address] [facility], Floor L1 [place] [address] Danuta Patel MD [address] [place] [address] Agnes@[facility] 08/04/2026 10:30 AM EDT [facility], [address], 6th [place] [address] Danuta Patel MD [address] [place] [address] Agnes@[facility] documented as of this encounter Visit Diagnoses [...] documented as of this encounter Care Teams Solar Tech Relationship Specialty Start Date End Date Dontae, Chiara Crandall MD [address] [place] [address] Drive [address] [place] [phone] PCP - General Internal Medicine 07/25/18 Joelle Grande MD, MSc [address] [place] [address] JOSÉ MANUEL@[facility] Surgeon Surgical Oncology 08/15/18 Oly Kraus MD, MPH [address] [place] [address] Lolis@[facility] Primary Oncologist Radiation Oncology 08/15/18 Valerie Conti MD [address] [place] [address] Mariusz@[facility] Primary Oncologist Medical Oncology 08/15/18 04/11/20 Daryn Donohue MD [address] [place] [address] Referring Physician Urology 08/19/18 Savanna Banegas [address] [place] [address] NESTOR@[facility] Applications Scientist 08/19/18 Sindy Isaacs, [address] [address] Gregorio@[facility] Geospatial Technician Oncology 09/16/18 07/25/19 Cris Aburto, [address] [address] delvin@[email or web address] Geospatial Technician 12/26/18 Arlin Cherry, [address] [address] Mayekl@[facility] Geospatial Technician Oncology 07/26/19 Shun Schuster MD Rohan@[facility] Primary Oncologist Medical Oncology 04/12/20 06/21/21 Jaspal Ordoñez MD [address] [place] [address] [email or web address] Palliative Care 12/22/20 Joelle Grande MD, MSc [address] [place] [address] JOSÉ MANUEL@[facility] Surgical Oncology 03/07/21 Danuta Patel MD [address] [place] [address] Agnes@[facility] Medical Oncology 06/22/21 documented as of this encounter Additional Source Comments The information contained in this document represents components of the legal health record. It is not the complete legal health record.[facility]
--- OUTSIDE RECORDS SUMMARY | 2025-10-03 10:04 | XMS_ITS | Encounter Summary ---
Author Organization [facility] Address [address] [place] [address] Phone Care Team Providers Care Geoscience Professor Name Role Phone Chiara Diggs MD Primary Care Provider [phone] Joelle Grande MD, MSc Unavailable Oly Kraus MD, MPH Unavailable + [phone] Daryn Donohue MD Unavailable Savanna Banegas Unavailable Cris Aburto PLASTIC SURGERY COORDINATOR Unavailable [phone] Arlin Cherry PLASTIC SURGERY COORDINATOR Unavailable [phone] Shun Schuster MD Unavailable Portia [email or web address] Jaspal Pettit MD Unavailable Joelle Grande MD, MSc Unavailable Danuta Patel MD Unavailable [phone] Encounter Details Date Type Department Care Team (Late st Contact Info) Description 08/25/2020 Procedure Pass [facility] [address] [place] [address] Social History Tobacco Use Types Packs/Day Years [...] Info) Description 07/29/[address] [facility] Imaging Department, [facility], [place] [address] [facility], Floor [address] [place] [address] 07/29/[address] [facility] Imaging Department, [facility] [place] [address] [facility], Floor [address] [place] [address] 07/31/2026 1:40 PM EDT Appointment [facility] Imaging Department, [facility] [place] [address] [facility], Floor [address] [place] [address] Danuta Patel MD [address] [place] [address] [email or web address] 08/04/2026 10:30 AM EDT [facility], [address], 6th [place] [address] Danuta Patel MD [address] [place] [address] Agnes@[email or web address] documented as [...] documented as of this encounter Care Teams Geoscience Professor Relationship Specialty Start Date End Date Chiara Diggs MD [address] [place] [address] [place] [phone] PCP - General Internal Medicine 07/25/18 Joelle Grande MD, MSc [address] [place] [address] JOSÉ MANUEL@[email or web address] Surgeon Surgical Oncology 08/15/18 Oly Kraus MD, MPH [address] [place] [address] [email or web address] Primary Oncologist Radiation Oncology 08/15/18 Daryn Donohue MD [address] [place] [address] Referring Physician Urology 08/19/18 Savanna Banegas [address] [place] [address] NESTOR@[email or web address] Office Clerk Routine 08/19/18 Cris Aburto, [facility] [address] [place] [address] [email or web address] Pharmaceutical Physician 12/26/18 Arlin Cherry, [facility] [address] [place] [address] Maykel@[facility] Pharmaceutical Physician Oncology 07/26/19 Shun Schuster MD [email or web address] Primary Oncologist Medical Oncology 04/12/20 06/21/21 Jaspal Ordoñez MD [address] [place] [address] [email or web address] Palliative Care 12/22/20 Joelle Grande MD, MSc [address] [place] [address] JOSÉ [email or web address] Surgical Oncology 03/07/21 Danuta Patel MD [address] [place] [address] [email or web address] Medical Oncology 06/22/21 documented as of this encounter Additional Source Comments The information contained in this document represents components of the legal health record. It is not the complete legal health record.[facility]
--- OUTSIDE RECORDS SUMMARY | 2025-10-03 10:04 | XMS_ITS | Clinical Summary ---
Author Organization [facility] Address [address] [place] [address] Phone Care Team Providers Care Veneer Clipper Name Role Phone Chiara Diggs MD Primary Care Provider [phone] Joelle Grande MD, MSc Unavailable Oly Kraus MD, MPH Unavailable [phone]- [phone] Daryn Donohue MD Unavailable Savanna Banegas Unavailable Cris Aburto NEWS CLIPPING CUTTER Unavailable [phone] Arlin Cherry NEWS CLIPPING CUTTER Unavailable [phone] Jaspal Ordoñez MD Unavailable Jolele Grande MD, MSc Unavailable Danuta Patel MD Unavailable [phone] Allergies Active Allergy Reactions Criticality Noted Date [...] re-partial fill ok 56 tablet 5 Active HYDROcodone-bardy taminophen (NORCO) 5-325 mg per tablet Take 1 tab q 4-6 hours prn pain, nte 4 tabs/day. PalliativeCa re-partial fill ok 56 tablet 5 09/08/20 25 Discontinu ed(Reorder ) HYDROcodone-brady taminophen (NORCO) 5-325 mg per tablet Take 1 tab q 4-6 hours prn pain, nte 4 tabs/day. PalliativeCa re-partial fill ok 56 tablet 5 09/23/20 25 Discontinu ed(Reorder ) Active Problems Patient [...] EGD showed esophagitis, acquired and extrinsic stenosis. Sod (obtained d/t BRBPR) only w/ friable tissue [...] - Upon discharge please make appointment with [facility] Palliative Care clinic (known to [facility]) for further pain management, please call [phone] or requeste via the PEX Card Work queue ([facility] Palliative Care) - PEX Card In Basket messages can be sent to the Palliative Scheduling Pool - Patient lives far away from [facility], would benefit from making this apt on [...] far. Recommendations: - continue Dilaudid 2-4mg po [id number] PRN pain. We continue to encourage her [...] is symptomatically ok. - will f/u with [facility] Surgical Oncology. - she does not have [...] Encounters Date Type Department Care Team Description 09/23/2025 Refill [facility] at [address] [address] Adrianna Le, tool polisher Refill 09/08/2025 Refill [facility] at [address] [address] Adrianna Le, tool polisher Refill 07/30/2025 Telephone [facility] [place] at [address] [address] Adrianna Le, RN Update 07/29/2025 10:30 AM EDT [facility], [facility] [place] [address] [place] [address], 6th [place] [address] Danuta Patel MD Dedifferentiated liposarcoma (Primary Dx) 07/29/2025 Refill [facility] at [address] [address] Adrianna Le, tool polisher Refill 07/25/2025 11:30 AM EDT - 07/25/2025 11:59 PM EDT Hospital [facility], [facility], [place] [address] [facility], Floor [address]1 [place] [address] Danuta Patel MD Discharge Disposition: Home or Self Care 07/25/2025 11:30 AM EDT Infusion [facility] Imaging Department, [facility], Imaging [id number] [address] [facility], Floor [address] [place] [address] Chiara Diggs MD 07/21/2025 Refill [facility] at [address] [address] Adrianna Le RN Medication Refill 07/02/2024 Procedure Pass [facility] Imaging Department, [facility] [place] [address] [facility], Floor [address] [place] [address] 07/02/2024 Procedure Pass [facility] Imaging Department, [facility] [place] [address] [facility], [address] [place] [address] from Last 3 Months Family History Medical [...] Info) Description 07/29/2025 Procedure Pass [facility] Imaging Department, [facility] [place] [address] [facility], [address] [place] [address] 07/29/2025 Procedure Pass [facility] Imaging Department, [facility] [place] [address] [facility], Floor [address] [place] [address] 07/31/2026 1:40 PM EDT Appointment [facility] Imaging Department, [facility] [place] [address] [facility], Floor [address] [place] [address] Danuta Patel MD [address] [place] [address] [email or web address] 08/04/2026 10:30 AM EDT [facility], [facility] Cancer [address], 6th [place] [address] Danuta Patel MD [address] [place] [address] [email or web address] Health Maintenance Due Date Last Done Comments HEPATITIS C SCREENING 1967 LIPID PANEL 1967 ZOSTER VACCINES (1 of 2) 1968 OSTEOPOROSIS SCREENING INITIAL (ONE-TIME) 2014 DIABETIC EYE EXAM 04/15/2019 URINE MICROALBUMIN/CREATININE RATIO 04/15/2019 HEMOGLOBIN A1C 08/06/2019 02/04/2019, 11/21/2018 DEPRESSION SCREENING 11/12/2020 11/12/2019 RSV VACCINE (1 - 1-dose 75+ series) 2024 INFLUENZA VACCINE (#1) 2025 , 10/04/2023, 09/14/2022, Additional history exists COVID-19 VACCINE (2024- season) 2025 08/14/2022, 09/16/2021, 02/14/2021, Additional history [...] clinician's provided indication for this examination in [facility]: Sarcoma re-evaluation TECHNIQUE: Multidetector CT of the [...] clinician's provided indication for this examination in [facility]:Sarcoma re-evaluation TECHNIQUE: Multidetector CT of the chest [...] the liver, increased since priorstudy. 4. Gallstones. Result [facility] Danuta Patel MD IMG CT ABD/PELVIS Final Re sult * (ABNORMAL) POCT Creatinine/eGFR (07/25/2025 12:12 PM EDT) Creatinine 1.30(H) 0.50 - 1.20 mg/dl [facility] EGFR 43(L) >59 mL/min/1.7 3m2 [facility] Comment:Estimated glomerular filtration rate calculated using the CKD-EPI refit equation. 07/25/2025 12:1 2 PM EDT 07/25/2025 12:14 PM EDT Result [facility] Chiara Diggs MD POINT OF CARE TEST ORDERABLES Final Result Performing Organization Address [facility] de Phone Number [facility] [address] [place] [address] * Hemoglobin A1c (02/04/2019 8:07 AM EDT) HEMOGLOBIN A1C 5.6 4.2 - 5.8 % [facility] CALC MEAN BLD GLUC 114 mg/dL [facility] Comment: There is no established [...] 8:07 AM EDT 02/04/2019 8:27 AM EDT Result [facility] Mackenzie Lamas MD LAB BLOOD BKR ORDERABLES Final Result Performing Organization Address City/[facility]/ZIP Co de Phone Number [facility] [address] [place] [phone] from Last 3 Months or Most Recently Relevant to Health Maintenance Insurance MEDICARE PART A & [place] [address] [place] [address] MEDICARE PART A & B [facility] MEDICARE PART A & B Apparity [facility] MEDICARE PART A & B Apparity [facility] MEDICARE [facility] A & B Apparity [facility] MEDICARE [facility] A & B Apparity [facility] MEDICARE PART A & B [facility] MEDICARE PART A & B [facility] MEDICARE PART A & B [facility] Advance Directives For more information, please contact: [phone] (9AM - 5PM [facility], Sunday-Sunday) Documents on File Type Date Recorded 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 Healthcare Proxy 11/26/2018 * Full [...] Agent (Proxy form on file) Care Teams Veneer Clipper Relationship Specialty Start Date End Date Po, Chiara Crandall MD [address] [place] [address] [place] [phone] PCP - General Internal Medicine 07/25/18 Joelle Grande MD, MSc [address] [place] [address] JOSÉ MANUEL@[facility] Surgeon Surgical Oncology 08/15/18 Oly Kraus MD, MPH [address] [place] [phone] Lolis@[email or web address] Primary Oncologist Radiation Oncology 08/15/18 Daryn Donohue MD [address] [place] [address] Referring Physician Urology 08/19/18 Savanna Banegas [address] [place] [address] NESTOR@[facility] Educational Technology Coordinator 08/19/18 Cris Aburto, NEWS CLIPPING CUTTER[address] [address] [email or web address] Spring Coiler 12/26/18 Arlin Cherry, [address] [address] Maykel@[facility] Spring Coiler Oncology 07/26/19 Jaspal Ordoñez MD [address] [place] [address] [email or web address] Palliative Care 12/22/20 Joelle Grande MD, MSc [address] [place] [address] JOSÉ MANUEL@[facility] Surgical Oncology 03/07/21 Danuta Patel MD [address] [place] [address] [email or web address] Medical Oncology 06/22/21 Additional Source Comments The information contained in this document represents components of the legal health record. It is not the complete legal health record.[facility]
--- OUTSIDE RECORDS SUMMARY | 2025-10-03 10:04 | XMS_ITS | Encounter Summary ---
Author Organization [facility] Address [address] [place] [address] Phone Care Team Providers Care Sprinkler Fitter Apprentice Name Role Phone Chiara Diggs MD Primary Care Provider [phone] Joelle Grande MD, MSc Unavailable Oly Kraus MD, MPH Unavailable Daryn Donohue MD Unavailable [phone] Savanna Banegas Unavailable Cris Aburto HOME HOUSEKEEPER Unavailable [phone] Arlin Cherry HOME HOUSEKEEPER Unavailable [phone] Jaspal Ordoñez MD Unavailable Joelle Grande MD, MSc Unavailable Danuta Patel MD Unavailable [phone] Encounter Details Date Type Department Care Team (Late st Contact Info) Description 09/27/2022 Procedure Pass [facility], [facility] [place], [place] [address] [facility], Floor [address]1 [place] [address] Social History Tobacco Use Types Packs/Day Years [...] Contact Info) Description 07/29/2025 Procedure Pass [facility] Imaging Department, [facility] [place] [address] [facility], Floor [address]1 [place] [address] 07/29/2025 Procedure Pass [facility] Imaging Department, [facility] [place] [address] [facility], Floor [address] [place] [address] 07/31/2026 1:40 PM EDT Appointment [facility] Imaging Department, [facility] [place] [address] [facility], Floor [address] [place] [address] Danuta Patel MD [address] [place] [address] Agnes@[facility] 08/04/2026 10:30 AM EDT [facility], [address], 6th [place] [address] Danuta Patel MD [address] [place] [phone] Agnes@[facility] documented as of this encounter Visit Diagnoses Not on filedocumented in this encounter Additional Health Concerns 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 02/28/2019 12/20/2022 1:[address] Assessment Noted Time PHQ-2 Depression Total Score: 0 11/12/19 1:45 PM EST documented as of this encounter Care Teams Sprinkler Fitter Apprentice Relationship Specialty Start Date End Date Dontae Chiara Crandall MD [address] [place] [address] [address] [place] [phone] PCP - General Internal Medicine 07/25/18 Joelle Grande MD, MSc [address] [place] [address] JOSÉ MANUEL@[facility] Surgeon Surgical Oncology 08/15/18 Oly Kraus MD, MPH [address] [place] [address] Lolis@[facility] Primary Oncologist Radiation Oncology 08/15/18 Daryn Donohue MD [address] [place] [address] Referring Physician Urology 08/19/18 Savanna Banegas [address] [place] [address] NESTOR@[facility] Table Games Floor Supervisor 08/19/18 Cris Aburto, [address] [address] [email or web address] Community Chest Officer 12/26/18 Arlin Cherry, [address] [address] Maykel@[facility] Community Chest Officer Oncology 07/26/19 Jaspal Ordoñez MD [address] [place] [address] [email or web address] Palliative Care 12/22/20 Joelle Grande MD, MSc [address] [place] [address] JOSÉ MANUEL@[email or web address] Surgical Oncology 03/07/21 Danuta Patel MD [address] [place] [address] [email or web address] Medical Oncology 06/22/21 documented as of this encounter Additional Source Comments The information contained in this document represents components of the legal health record. It is not the complete legal health record.[facility]
--- OUTSIDE RECORDS SUMMARY | 2025-10-03 10:04 | XMS_ITS | Encounter Summary ---
Author Organization [facility] Address [address] [place] [address] Phone Care Team Providers Care Glass Sagger Name Role Phone Chiara Diggs MD Primary Care Provider [phone] Joelle Grande MD, MSc Unavailable Oly Kraus MD, MPH Unavailable + [phone] Valerie Conti MD Unavailable [phone] Daryn Donohue MD Unavailable [phone] Savanna Banegas Unavailable Sindy Isaacs PAPER SLITTER Unavailable [phone] Cris Aburto PAPER SLITTER Unavailable [phone] Arlin Cherry PAPER SLITTER Unavailable [phone] Shun Schusetr MD Unavailable Portia [email or web address] Jaspal Pettit MD Unavailable Joelle Grande MD, MSc Unavailable Danuta Patel MD Unavailable [phone] Encounter Details Date Type Department Care Team (Late st Contact Info) Description 11/26/2018 Procedure Pass [facility] Periop [address] [place] [address] Social History Tobacco Use Types Packs/Day Years [...] st Contact Info) Description 07/29/2025 Procedure Pass [facility] Imaging Department, [facility], [place] [address] [facility], Floor [address]1 [place] [address] 07/29/2025 Procedure Pass [facility] Imaging Department, [facility] [place] [address] [facility], Floor [address] [place] [address] 07/31/2026 1:40 PM EDT Appointment [facility] Imaging Department, [facility], [place] [address] [facility], Floor [address] [place] [address] Danuta Patel MD [address] [place] [phone] Agnes@[email or web address] 08/04/2026 10:30 AM EDT [facility], [address], 6th [place] [address] Danuta Patel MD [address] [place] [address] Agnes@[facility] documented as of this encounter Visit Diagnoses [...] as of this encounter Care Teams Glass Sagger Relationship Specialty Start Date End Date Dontae, Chiara Crandall MD [address] [place] [address] [address] [place] [phone] PCP - General Internal Medicine 07/25/18 Joelle Grande MD, MSc [address] [place] [address] JOSÉ MANUEL@[facility] Surgeon Surgical Oncology 08/15/18 Oly Kraus MD, MPH [address] [place] [address] Lolis@[facility] Primary Oncologist Radiation Oncology 08/15/18 Valerie Conti MD [address] [place] [address] [email or web address] Primary Oncologist Medical Oncology 08/15/18 04/11/20 Daryn Donohue MD [address] [place] [address] Referring Physician Urology 08/19/18 Savanna Banegas [address] [place] [address] NESTOR@[facility] Associate Professor Of Media Arts 08/19/18 Sindy Isaacs, [address] [address] Gregorio@[facility] Sales Representative Printing Supplies Oncology 09/16/18 07/25/19 Cris Aburto, [address] [address] [email or web address] Sales Representative Printing Supplies 12/26/18 Arlin Cherry, [address] [address] Maykel@[facility] Sales Representative Printing Supplies Oncology 07/26/19 Shun Schuster MD Rohan@[email or web address] Primary Oncologist Medical Oncology 04/12/20 06/21/21 Jaspal Ordoñez MD [address] [place] [address] [email or web address] Palliative Care 12/22/20 Joelle Grande MD, MSc [address] [place] [address] JOSÉ MANUEL@[facility] Surgical Oncology 03/07/21 Danuta Patel MD [address] [place] [address] Agnes@[facility] Medical Oncology 06/22/21 documented as of this encounter Additional Source Comments The information contained in this document represents components of the legal health record. It is not the complete legal health record.[facility]
--- OUTSIDE RECORDS SUMMARY | 2025-10-03 10:04 | XMS_ITS | Encounter Summary ---
Author Organization [facility] Address [address] [place] [address] Phone Care Team Providers Care Station Superintendent Name Role Phone Chiara Diggs MD Primary Care Provider [phone] Joelle Grande MD, MSc Unavailable Oly Kraus MD, MPH Unavailable + [phone] Valerie Conti MD Unavailable [phone] Daryn Donohue MD Unavailable Savanna Banegas Unavailable Sindy Isaacs MECHANICAL PRODUCT ENGINEER Unavailable [phone] Cris Aburto MECHANICAL PRODUCT ENGINEER Unavailable +[phone] Arlin Cherry MECHANICAL PRODUCT ENGINEER Unavailable [phone] Shun Schuster MD Unavailable Portia [email or web address] Jaspal Pettit MD Unavailable Joelle Grande MD, MSc Unavailable Danuta Patel MD Unavailable [phone] Encounter Details Date Type Department Care Team (Late st Contact Info) Description 08/15/2018 Procedure Pass [facility] [address] [place] [address] Social History Tobacco Use Types Packs/Day Years Used Date Smoking Tobacco: Former Cigarettes 0.3 2 1 [phone] [phone] Smokeless Tobacco: Never Alcohol Use Standard Drinks/Week [...] st Contact Info) Description 07/29/2025 Procedure Pass [facility] Imaging Department, [facility], [place] [address] [facility], Floor [address] [place] [address] 07/29/2025 Procedure Pass [facility] Imaging Department, [facility] [place] [address] [facility], [address] [place] [address] 07/31/2026 1:40 PM EDT Appointment [facility] Imaging Department, [facility], [place] [address] [facility], Floor [address] [place] [address] Danuta Patel MD [address] [place] [address] Agnes@[email or web address] 08/04/2026 10:30 AM EDT [facility], [address], 6th [place] [address] Danuta Patel MD [address] [place] [address] Agnes@[email or web address] documented as of this encounter Visit Diagnoses Not on filedocumented in this encounter Additional Health Concerns 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 02/28/2019 12/20/2022 1:[address] CoV-Presumed Comment:12/12: Symptom onset- fatigue, ST, cough, SOB 12/13: positive PCR outside lab (needs to be uploaded to [facility])- Yohana Noble RN 12/12/2021 12/13/2021 01/01/2022 1:[address] documented as of this encounter Care Teams Station Superintendent Relationship Specialty Start Date End Date Chiara Diggs MD [address] [place] [address] Drive [address] [place] [phone] PCP - General Internal Medicine 07/25/18 Joelle Grande MD, MSc [address] [place] [address] JOSÉ MANUEL@[facility] Surgeon Surgical Oncology 08/15/18 Oly Kraus MD, MPH [address] [place] [address] Lolis@[facility] Primary Oncologist Radiation Oncology 08/15/18 Valerie Conti MD [address] [place] [address] [email or web address] Primary Oncologist Medical Oncology 08/15/18 04/11/20 Daryn Donohue MD [address] [place] [address] Referring Physician Urology 08/19/18 Savanna Banegas [address] [place] [address] NESTOR@[facility] Saw Maker 08/19/18 Sindy Isaacs, [address] [address] [email or web address] Laboratory Aide Oncology 09/16/18 07/25/19 Cris Aburto, [address] [address] [email or web address] Laboratory Aide 12/26/18 Arlin Cherry, [address] [address] [email or web address] Laboratory Aide Oncology 07/26/19 Shun Schuster MD Rohan@[facility] Primary Oncologist Medical Oncology 04/12/20 06/21/21 Jaspal Ordoñez MD [address] [place] [address] [email or web address] Palliative Care 12/22/20 Joelle Grande MD, MSc [address] [place] [address] JOSÉ MANUEL@[facility] Surgical Oncology 03/07/21 Danuta Patel MD [address] [place] [address] Agnes@[facility] Medical Oncology 06/22/21 documented as of this encounter Additional Source Comments The information contained in this document represents components of the legal health record. It is not the complete legal health record.[facility]
--- OUTSIDE RECORDS SUMMARY | 2025-10-03 10:04 | XMS_ITS | Encounter Summary ---
Author Organization [facility] Address [address] [place] [address] Phone Care Team Providers Care Electric Meter Technician Name Role Phone Chiara Diggs MD Primary Care Provider [phone] Joelle Grande MD, MSc Unavailable Oly Kraus MD, MPH Unavailable + [phone] Valerie Conti MD Unavailable [phone] Daryn Donohue MD Unavailable [phone] Savanna Banegas Unavailable Sindy Isaacs PHARMACOVIGILANCE SPECIALIST Unavailable [phone] Cris Aburto PHARMACOVIGILANCE SPECIALIST Unavailable [phone] Arlin Cherry PHARMACOVIGILANCE SPECIALIST Unavailable [phone] Shun Schuster MD Unavailable Portia [email or web address] Jaspal Pettit MD Unavailable Joelle Grande MD, MSc Unavailable Danuta Patel MD Unavailable [phone] Reason for Referral * MRI/CAT Scan - Closed Specialty Diagnoses / Procedures Referred By Contac t Referred To Contact Procedures MRI Abdomen Outside (No Interpretation) Donnie Moore MD Phone: tel: fax: mailto:[email or web address] Referral ID Status Reason Start Date Expiration Date Visits Re quested Visits Authorized [id number] Closed 08/15/2018 08/15/2019 1 1 * MRI/CAT Scan - Closed Specialty Diagnoses / Procedures Referred By Contac t Referred To Contact Procedures MRI Spine (Neuro) Outside (No Interpretation) Donnie Moore MD Phone: tel: fax: mailto:[email or web address] Referral ID Status Reason Start Date Expiration Date Visits Re quested Visits Authorized [id number] Closed 08/15/2018 08/15/2019 1 1 * MRI/CAT Scan - Closed Specialty Diagnoses / Procedures Referred By Contac t Referred To Contact Procedures MRI Abdomen Outside (No Interpretation) Donnie Moore MD Phone: tel: fax: mailto:[email or web address] Referral ID Status Reason Start Date Expiration Date Visits Re quested Visits Authorized [id number] Closed 08/15/2018 08/15/2019 1 1 * MRI/CAT Scan - Closed Specialty Diagnoses / Procedures Referred By Contac t Referred To Contact Procedures CT Abdomen/Pelvis Outside (No Interpretation) Donnie Moore MD Phone: tel: fax: mailto:[email or web address] Referral ID Status Reason Start Date Expiration Date Visits Re quested Visits Authorized [id number] Closed 08/15/2018 08/15/2019 1 1 Encounter Details Date Type Department Care Team (Late st Contact Info) Description 08/15/2018 Transcribe Orders [facility] [address] [place] [address] Samina Zaragoza [address] [place] [address] [email or web address] Social History Tobacco Use Types Packs/Day [...] st Contact Info) Description 07/29/2025 Procedure Pass [facility] Imaging Department, [facility], [place] [address] [facility], Floor [address]1 [place] [address] 07/29/2025 Procedure Pass [facility] Imaging Department, [facility] [place] [address] [facility], [address] [place] [address] 07/31/2026 1:40 PM EDT Appointment [facility] Imaging Department, [facility] [place] [address] [facility], [address] [place] [address] Danuta Patel MD [address] [place] [address] Agnes@[email or web address] 08/04/2026 10:30 AM EDT Telemedicine [facility], [facility] [address], 6th [place] [address] Danuta Patel MD [address] [place] [address] [email or web address] documented as of this encounter Results * MRI Abdomen Outside (No Interpretation) (08/15/2018 1:15 AM EDT) Narrative PERCIPIO_BW - 08/15/2018 11:02 AM EDT This study is for PACS storage only and not for interpretation. us Donnie Moore MD IMG OUTSIDE IMAGING W/OUT INT ERPRETATION Final Result Performing Organization Address [facility] de Phone Number PERCIPIO_BWH * XR SPINE OUTSIDE(NO INTERPRETATION) (08/15/2018 1:00 AM EDT) Narrative PERCIPIO_BW - 08/15/2018 11:02 AM EDT This study is for PACS storage only and not for interpretation. us Donnie Moore MD IMG OUTSIDE IMAGING W/OUT INT ERPRETATION Final Result Performing Organization Address [facility] de Phone Number PERCIPIO_BWH * MRI Spine (Neuro) Outside (No Interpretation) (08/15/2018 12:45 AM EDT) Narrative PERCIPIO_BW - 08/15/2018 11:02 AM EDT This study is for PACS storage only and not for interpretation. us Donnie Moore MD IMG OUTSIDE IMAGING W/OUT INT ERPRETATION Final Result Performing Organization Address [facility] de Phone Number PERCIPIO_BWH * US Abdomen Outside (No Interpretation) (08/15/2018 12:30 AM EDT) Narrative PERCIPIO_BW - 08/15/2018 11:02 AM EDT This study is for PACS storage only and not for interpretation. us Donnie Moore MD IMG OUTSIDE IMAGING W/OUT INT ERPRETATION Final Result Performing Organization Address [facility] Co de Phone Number PERCIPIO_BWH * [...] outside lab (needs to be uploaded to [employer])- Yohana Noble RN 12/12/2021 12/13/2021 01/01/2022 1:[address] documented as of this encounter Care Teams Electric Meter Technician Relationship Specialty Start Date End Date Chiara Diggs MD [address] [place] [address] [place] [address] [phone] PCP - General Internal Medicine 07/25/18 Joelle Grande MD, MSc [address] [place] [address] JOSÉ [email or web address] Surgeon Surgical Oncology 08/15/18 Oly Kraus MD, MPH [address] [place] [address] Lolis@[facility] Primary Oncologist Radiation Oncology 08/15/18 Valerie Conti MD [address] [place] [address] [email or web address] Primary Oncologist Medical Oncology 08/15/18 04/11/20 Daryn Donohue MD [address] [place] [address] Referring Physician Urology 08/19/18 Savanna Banegas [address] [place] [address] NESTOR@[facility] Shared Services Manager 08/19/18 Sindy Isaacs, [address] [address] [email or web address]@[email or web address] Airfreight Operations Agent Oncology 09/16/18 07/25/19 Cris Aburto, [address] [address] [email or web address] Airfreight Operations Agent 12/26/18 Arlin Cherry, [address] [address] Maykel@[email or web address] Airfreight Operations Agent Oncology 07/26/19 Shun Schuster MD Rohan@[email or web address] Primary Oncologist Medical Oncology 04/12/20 06/21/21 Jaspal Ordoñez MD [address] [place] [address] Palliative Care 2/17/21 Joelle Grande MD, MSc [address] [place] [address] JOSÉ MANUEL@[email or web address] Surgical Oncology 03/07/21 Danuta Patel MD [address] [place] [address] [email or web address] Medical Oncology 06/22/21 documented as of this encounter Additional Source Comments The information contained in this document represents components of the legal health record. It is not the complete legal health record.[facility]
--- OUTSIDE RECORDS SUMMARY | 2025-10-03 10:04 | XMS_ITS | Encounter Summary ---
Author Organization [facility] Address [address] [place] [address] Phone Care Team Providers Care Go Cart Mechanic Name Role Phone Chiara Diggs MD Primary Care Provider [phone] Joelle Grande MD, MSc Unavailable Oly Kraus MD, MPH Unavailable + [phone] Valerie Conti MD Unavailable [phone] Daryn Donohue MD Unavailable [phone] Savanna Banegas Unavailable Sindy Isaacs MECHANICAL SERVICE REPRESENTATIVE Unavailable [phone] Cris Aburto MECHANICAL SERVICE REPRESENTATIVE Unavailable [phone] Arlin Cherry MECHANICAL SERVICE REPRESENTATIVE Unavailable [phone] Shun Schuster MD Unavailable Portia [email or web address] Jaspal Pettit MD Unavailable Joelle Grande MD, MSc Unavailable Danuta Patel MD Unavailable [phone] Encounter Details Date Type Department Care Team (Late st Contact Info) Description 08/15/2018 Procedure Pass [facility] [address] [place] [address] Social History Tobacco Use Types Packs/Day Years Used Date Smoking Tobacco: Former Cigarettes 0.3 2 1 962 - 8033 Smokeless Tobacco: Never Alcohol Use Standard Drinks/Week [...] Info) Description 07/29/2025 Procedure Pass [facility] Imaging Department, [facility], [place] [address] [facility], Floor [address] [place] [address] 07/29/2025 Procedure Pass [facility] Imaging Department, [facility] [place] [address] [facility], Floor [address] [place] [address] 07/31/2026 1:40 PM EDT Appointment [facility] Imaging Department, [facility] [place] [address] [facility], [address] [place] [address] Danuta Patel MD [address] [place] [address] Agnes@[facility] 08/04/2026 10:30 AM EDT [facility], [address], 6th [place] [address] Danuta Patel MD [address] [place] [address] Agnes@[facility] documented as of this encounter Visit Diagnoses Not on filedocumented in this encounter Additional Health Concerns 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 02/28/2019 12/20/2022 1:[address] CoV-Presumed Comment:12/12: Symptom onset- fatigue, ST, cough, SOB 12/13: positive PCR outside lab (needs to be uploaded to [facility])- Yohana Noble RN 12/12/2021 12/13/2021 01/01/2022 1:[address] documented as of this encounter Care Teams Go Cart Mechanic Relationship Specialty Start Date End Date Chiara Diggs MD [address] [place] [address] Drive [address] [place] [address] [phone] PCP - General Internal Medicine 07/25/18 Joelle Grande MD, MSc [address] [place] [address] JOSÉ MANUEL@[facility] Surgeon Surgical Oncology 08/15/18 Oly Kraus MD, MPH [address] [place] [address] Lolis@[facility] Primary Oncologist Radiation Oncology 08/15/18 Valerie Conti MD [address] [place] [address] [email or web address] Primary Oncologist Medical Oncology 08/15/18 04/11/20 Daryn Donohue MD [address] [place] [address] Referring Physician Urology 08/19/18 Savanna Banegas [address] [place] [address] NESTOR@[facility] Electromechanical Assembler 08/19/18 Sindy Isaacs, [address] [address] [email or web address]@[email or web address] Process Camera Operator Oncology 09/16/18 07/25/19 Cris Aburto, [address] [address] [email or web address] Process Camera Operator 12/26/18 Arlin Cherry, [address] [address] Maykel@[facility] Process Camera Operator Oncology 07/26/19 Shun Schuster MD Rohan@[facility] Primary Oncologist Medical Oncology 04/12/20 06/21/21 Jaspal Ordoñez MD [address] [place] [address] [email or web address] Palliative Care 12/22/20 Joelle Grande MD, MSc [address] [place] [address] JOSÉ MANUEL@[facility] Surgical Oncology 03/07/21 Danuta Patel MD [address] [place] [address] Agnes@[facility] Medical Oncology 06/22/21 documented as of this encounter Additional Source Comments The information contained in this document represents components of the legal health record. It is not the complete legal health record.[facility]
--- OUTSIDE RECORDS SUMMARY | 2025-10-03 10:04 | XMS_ITS | Encounter Summary ---
Author Organization [facility] Address [address] [place] [address] Phone Care Team Providers Care Digital Media Specialist Name Role Phone Chiara Diggs MD Primary Care Provider [phone] Joelle Grande MD, MSc Unavailable Oly Kraus MD, MPH Unavailable + [phone] Daryn Donohue MD Unavailable [phone] Savanna Banegas Unavailable Cris Aburto STRATEGIC ACCOUNT MANAGER Unavailable [phone] Arlin Cherry STRATEGIC ACCOUNT MANAGER Unavailable [phone] Shun Schuster MD Unavailable Portia [email or web address] Jaspal Pettit MD Unavailable Joelle Grande MD, MSc Unavailable Danuta Patel MD Unavailable [phone] Encounter Details Date Type Department Care Team (Late st Contact Info) Description 08/25/2020 Procedure Pass [facility] [address] [place] [address] Social History Tobacco Use Types Packs/Day Years [...] Info) Description 07/29/2025 Procedure Pass [facility] Imaging Department, [facility], [place] [address] [facility], Floor [address]1 [place] [address] 07/29/2025 Procedure Pass [facility] Imaging Department, [facility] [place] [address] [facility], Floor [address] [place] [address] 07/31/2026 1:40 PM EDT Appointment [facility] Imaging Department, [facility] [place] [address] [facility], [address] [place] [address] Danuta Patel MD [address] [place] [address] Agnes@[facility] 08/04/2026 10:30 AM EDT Tele[facility], [address], 6th [place] [address] Danuta Patel MD [address] [place] [address] Agnes@[facility] documented as of [...] documented as of this encounter Care Teams Digital Media Specialist Relationship Specialty Start Date End Date Chiara Digsg MD [address] [place] [address] [place] [phone] PCP - General Internal Medicine 07/25/18 Joelle Grande MD, MSc [address] [place] [address] JOSÉ MANUEL@[email or web address] Surgeon Surgical Oncology 08/15/18 Oly Kraus MD, MPH [address] [place] [address] [email or web address] Primary Oncologist Radiation Oncology 08/15/18 Daryn Donohue MD [address] [place] [address] Referring Physician Urology 08/19/18 Savanna Banegas [address] [place] [address] NESTOR@[facility] Cement Storage Worker 08/19/18 Cris Aburto, [facility] [address] [place] [address] [email or web address] Sports Medicine Specialist 12/26/18 Arlin Cherry, [facility] [address] [place] [address] Maykel@[facility] Sports Medicine Specialist Oncology 07/26/19 Shun Schuster MD Rohan@[email or web address] Primary Oncologist Medical Oncology 04/12/20 06/21/21 Jaspal Ordoñez MD [address] [place] [address] [email or web address] Palliative Care 12/22/20 Joelle Grande MD, MSc [address] [place] [address] JOSÉ MANUEL@[email or web address] Surgical Oncology 03/07/21 Danuta Patel MD [address] [place] [address] [email or web address] Medical Oncology 06/22/21 documented as of this encounter Additional Source Comments The information contained in this document represents components of the legal health record. It is not the complete legal health record.[facility]
--- OUTSIDE RECORDS SUMMARY | 2025-10-03 10:04 | XMS_ITS | Encounter Summary ---
Author Organization [facility] Address [address] [place] [address] Phone Care Team Providers Care Healthcare Administrator Name Role Phone Chiara Diggs MD Primary Care Provider [phone] Joelle Grande MD, MSc Unavailable Oly Kraus MD, MPH Unavailable + [phone] Valerie Conti MD Unavailable [phone] Daryn Donohue MD Unavailable Savanna Banegas Unavailable Sindy Isaacs LEVELER HELPER Unavailable [phone] Cris Aburto LEVELER HELPER Unavailable +[phone] Arlin Cherry LEVELER HELPER Unavailable +[phone] Shun Schuster MD Unavailable Portia [email or web address] Jaspal Pettit MD Unavailable Joelle Grande MD, MSc Unavailable Danuta Patel MD Unavailable [phone] Encounter Details Date Type Department Care Team (Late st Contact Info) Description 02/19/2019 Procedure Pass [facility] Endoscopy Department [address] [place] [address] Social History Tobacco Use Types Packs/Day Years [...] Upcoming Encounters Date Type Department Care Team ([facility] st Contact Info) Description 07/29/2025 Procedure Pass [facility] Imaging Department, [facility], [place] [address] [facility], Floor [address]1 [place] [address] 07/29/2025 Procedure Pass [facility] Imaging Department, [facility] [place] [address] [facility], Floor [address]1 [place] [address] 07/31/2026 1:40 PM EDT Appointment [facility] Imaging Department, [facility], [place] [address] [facility], Floor [address]1 [place] [address] Danuta Patel MD [address] [place] [address] Agnes@[email or web address] 08/04/2026 10:30 AM EDT [facility], [address], 6th [place] [address] Danuta Patel MD [address] [place] [address] Agnes@[email or web address] documented as of this encounter [...] documented as of this encounter Care Teams Healthcare Administrator Relationship Specialty Start Date End Date Dontae, Chiara Crandall MD [address] [place] [address] [address] [place] [phone] PCP - General Internal Medicine 07/25/18 Joelle Grande MD, MSc [address] [place] [place] [address] JOSÉ MANUEL@[email or web address] Surgeon Surgical Oncology 08/15/18 Oly Kraus MD, MPH [address] [place] [address] Lolis@[facility] Primary Oncologist Radiation Oncology 08/15/18 Valerie Conti MD [address] [place] [address] Mariusz@[email or web address] Primary Oncologist Medical Oncology 08/15/18 04/11/20 Daryn Donohue MD [address] [place] [address] Referring Physician Urology 08/19/18 Savanna Banegas [address] [place] [address] NESTOR@[email or web address] Food Technologist 08/19/18 Sindy Isaacs, [address] [address] Gregorio@[facility] Sewing Machine Repairer Helper Oncology 09/16/18 07/25/19 Cris Aburto, [address] [address] [email or web address] Sewing Machine Repairer Helper 12/26/18 Arlin Cherry, [address] [address] Maykel@[facility] Sewing Machine Repairer Helper Oncology 07/26/19 Shun Schuster MD Rohan@[email or web address] Primary Oncologist Medical Oncology 04/12/20 06/21/21 Jaspal Ordoñez MD [address] [place] [address] [email or web address] Palliative Care 12/22/20 Joelle Grande MD, MSc [address] [place] [place] [address] JOSÉ MANUEL@[facility] Surgical Oncology 03/07/21 Danuta Patel MD [address] [place] [address] Agnes@[facility] Medical Oncology 06/22/21 documented as of this encounter Additional Source Comments The information contained in this document represents components of the legal health record. It is not the complete legal health record.[facility]
--- OUTSIDE RECORDS SUMMARY | 2025-10-03 10:04 | XMS_ITS | Encounter Summary ---
Author Organization [facility] Address [address] [place] [address] Phone Care Team Providers Care Director Of [employer] Name Role Phone Chiara Diggs MD Primary Care Provider [phone] Joelle Grande MD, MSc Unavailable Oly Kraus MD, MPH Unavailable + [phone] Daryn Donohue MD Unavailable [phone] Savanna Banegas Unavailable Cris Aburto WINDER CONTORT OPERATOR Unavailable + [phone] Arlin Cherry WINDER CONTORT OPERATOR Unavailable [phone] Jaspal Ordoñez MD Unavailable Joelle Grande MD, MSc Unavailable Danuta Patel MD Unavailable [phone] Encounter Details Date Type Department Care Team (Late st Contact Info) Description 10/17/2023 Procedure Pass [facility], Ct Scan - [address] [address] Social History Tobacco Use Types Packs/Day Years [...] st Contact Info) Description 07/29/2025 Procedure Pass [facility] Imaging Department, [facility], [place] [address] [facility], Floor [address]1 [place] [address] 07/29/2025 Procedure Pass [facility] Imaging Department, [facility], [address], Floor [address] [place] [address] 07/31/2026 1:40 PM EDT Appointment [facility] Imaging Department, [facility], [place] [address] [facility], Floor [address]1 [place] [address] Danuta Patel MD [address] [place] [address] Agnes@[facility] 08/04/2026 10:30 AM EDT [facility], [address], 6th [place] [address] Danuta Patel MD [address] [place] [address] Agnes@[facility] documented as of this encounter Visit Diagnoses Not on filedocumented in this encounter Additional Health Concerns Assessment Noted Time PHQ-2 Depression Total Score: 0 11/12/19 20 1:45 PM EST documented as of this encounter Care Teams Director Of [employer] Relationship Specialty Start Date End Date Chiara Diggs MD [address] [place] [address] [place] [phone] PCP - General Internal Medicine 07/25/18 Joelle Grande MD, MSc [address] [place] [address] JOSÉ MANUEL@[facility] Surgeon Surgical Oncology 08/15/18 Oly Kraus MD, MPH [address] [place] [address] Lolis@[facility] Primary Oncologist Radiation Oncology 08/15/18 Daryn Donohue MD [address] [place] [address] Referring Physician Urology 08/19/18 Savanna Banegas [address] [place] [address] NESTOR@[facility] Bead Worker Sewing 08/19/18 Cris Aburto, [facility] [address] [place] [address] [email or web address] Electronics Mechanic Apprentice 12/26/18 Arlin Cherry, [facility] [address] [place] [address] Maykel@[facility] Electronics Mechanic Apprentice Oncology 07/26/19 Jaspal Ordoñez MD [address] [place] [address] Palliative Care 12/22/20 Joelle Grande MD, MSc [address] [place] [address] JOSÉ MANUEL@[facility] Surgical Oncology 03/07/21 Danuta Patel MD [address] [place] [address] Agnes@[facility] Medical Oncology 06/22/21 documented as of this encounter Additional Source Comments The information contained in this document represents components of the legal health record. It is not the complete legal health record.[facility]
--- OUTSIDE RECORDS SUMMARY | 2025-10-03 10:04 | XMS_ITS | Encounter Summary ---
Author Organization [facility] Address [address] [place] [address] Phone Care Team Providers Care Layout Worker Name Role Phone Chiara Diggs MD Primary Care Provider [phone] Joelle Grande MD, MSc Unavailable Oly Kraus MD, MPH Unavailable + [phone] Valerie Conti MD Unavailable [phone] Daryn Donohue MD Unavailable Savanna Banegas Unavailable Sindy Isaacs STEAM STATION SUPERVISOR Unavailable [phone] Cris Aburto STEAM STATION SUPERVISOR Unavailable [phone] Arlin Cherry STEAM STATION SUPERVISOR Unavailable [phone] Shun Schuster MD Unavailable Portia [email or web address] Jaspal Pettit MD Unavailable Joelle Grande MD, MSc Unavailable Danuta Patel MD Unavailable [phone] Encounter Details Date Type Department Care Team (Late st Contact Info) Description 08/15/2018 Procedure Pass [facility] [address] [place] [address] Social History Tobacco Use Types Packs/Day Years Used Date Smoking Tobacco: Former Cigarettes 0.3 2 1 [phone] - 3597 Smokeless Tobacco: Never Alcohol Use Standard Drinks/Week [...] Procedure Pass [facility] Imaging Department, [facility], [place] [address] [facility], Floor [address]1 [place] [address] 07/29/2025 Procedure Pass [facility] Imaging Department, [facility] [place] [address] [facility], Floor [address]1 [place] [address] 07/31/2026 1:40 PM EDT Appointment [facility] Imaging Department, [facility], [place] [address] [facility], Floor [address]1 [place] [address] Danuta Patel MD [address] [place] [address] Agnes@[facility] 08/04/2026 10:30 AM EDT [facility], [address], 6th [place] [address] Danuta Patel MD [address] [place] [address] Agnes@[facility] documented as of this encounter Visit Diagnoses Not on filedocumented in this encounter Additional Health Concerns 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 02/28/2019 12/20/2022 1:[address] CoV-Presumed Comment:12/12: Symptom onset- fatigue, ST, cough, SOB 12/13: positive PCR outside lab (needs to be uploaded to [facility])- Yohana Noble RN 12/12/2021 12/13/2021 01/01/2022 1:[address] documented as of this encounter Care Teams Layout Worker Relationship Specialty Start Date End Date Chiara Diggs MD [address] [place] [address] Drive [address] [place] [phone] PCP - General Internal Medicine 07/25/18 Joelle Grande MD, MSc [address] [place] [address] JOSÉ MANUEL@[facility] Surgeon Surgical Oncology 08/15/18 Oly Kraus MD, MPH [address] [place] [address] Lolis@[facility] Primary Oncologist Radiation Oncology 08/15/18 Valerie Conti MD [address] [place] [address] Mariusz@[facility] Primary Oncologist Medical Oncology 08/15/18 04/11/20 Daryn Donohue MD [address] [place] [address] Referring Physician Urology 08/19/[address] [place] [address] NESTOR@[facility] Costume Shop Manager 08/19/18 Sindy Isaacs, [address] [address] [email or web address]@[facility] Bandoleer Straightener Stamper Oncology 09/16/18 07/25/19 Cris Aburto, [address] [address] delvin@[email or web address] Bandoleer Straightener Stamper 12/26/18 Arlin Cherry, [address] [address] Maykel@[facility] Bandoleer Straightener Stamper Oncology 07/26/19 Shun Schuster MD Rohan@[email or web address] Primary Oncologist Medical Oncology 04/12/20 06/21/21 Jaspal Ordoñez MD [address] [place] [address] [email or web address] Palliative Care 12/22/20 Joelle Grande MD, MSc [address] [place] [address] JOSÉ MANUEL@[facility] Surgical Oncology 03/07/21 Danuta Patel MD [address] [place] [address] Agnes@[facility] Medical Oncology 06/22/21 documented as of this encounter Additional Source Comments The information contained in this document represents components of the legal health record. It is not the complete legal health record.[facility]
--- OUTSIDE RECORDS SUMMARY | 2025-10-03 10:04 | XMS_ITS | Encounter Summary ---
Author Organization [facility] Address [address] [place] [address] Phone Care Team Providers Care Materials Assistant Name Role Phone Chiara Diggs MD Primary Care Provider [phone] Joelle Grande MD, MSc Unavailable Oly Kraus MD, MPH Unavailable + [phone] Valerie Conti MD Unavailable [phone] Daryn Donohue MD Unavailable Savanna Banegas Unavailable Sindy Isaacs CIRCULATION SUPERVISOR Unavailable [phone] Cris Aburto CIRCULATION SUPERVISOR Unavailable [phone] Arlin Cherry CIRCULATION SUPERVISOR Unavailable [phone] Shun Schuster MD Unavailable Portia [email or web address] Jaspal Pettit MD Unavailable Joelle Grande MD, MSc Unavailable Danuta Patel MD Unavailable [phone] Encounter Details Date Type Department Care Team (Late st Contact Info) Description 02/21/2019 Procedure Pass [facility] [address] [place] [address] Social History Tobacco Use Types Packs/Day Years [...] Upcoming Encounters Date Type Department Care Team ([facility] st Contact Info) Description 07/29/2025 Procedure Pass [facility] Imaging Department, [facility], [place] [address] [facility], Floor [address]1 [place] [address] 07/29/2025 Procedure Pass [facility] Imaging Department, [facility], [place] [address] [facility], [address] [place] [address] 07/31/2026 1:40 PM EDT Appointment [facility] Imaging Department, [facility], [place] [address] [facility], Floor [address] [place] [address] Danuta Patel MD [address] [place] [address] Agnes@[facility] 08/04/2026 10:30 AM EDT [facility], [address], 6th [place] [address] Danuta Patel MD [address] [place] [address] Agnes@[facility] documented as [...] documented as of this encounter Care Teams Materials Assistant Relationship Specialty Start Date End Date Chiara Diggs MD [address] [place] [address] Drive [address] [place] [phone] PCP - General Internal Medicine 07/25/18 Joelle Grande MD, MSc [address] [place] [address] JOSÉ MANUEL@[facility] Surgeon Surgical Oncology 08/15/18 Oly Kraus MD, MPH [address] [place] [address] Lolis@[facility] Primary Oncologist Radiation Oncology 08/15/18 Valerie Conti MD [address] [place] [address] Mariusz@[facility] Primary Oncologist Medical Oncology 08/15/18 04/11/20 Daryn Donohue MD [address] [place] [address] Referring Physician Urology 08/19/18 Savanna Banegas [address] [place] [address] NESTOR@[facility] Hydraulic Controls Technician 08/19/18 Sindy Isaacs, [address] [address] [email or web address]@[facility] Research Intern Oncology 09/16/18 07/25/19 Cris Aburto, [address] [address] [email or web address] Research Intern 12/26/18 Arlin Cherry, [address] [address] Maykel@[facility] Research Intern Oncology 07/26/19 Shun Schuster MD Rohan@[facility] Primary Oncologist Medical Oncology 04/12/20 06/21/21 Jaspal Ordoñez MD [address] [place] [address] [email or web address] Palliative Care 12/22/20 Joelle Grande MD, MSc [address] [place] [address] JOÉS MANUEL@[facility] Surgical Oncology 03/07/21 Danuta Patel MD [address] [place] [address] Agnes@[facility] Medical Oncology 06/22/21 documented as of this encounter Additional Source Comments The information contained in this document represents components of the legal health record. It is not the complete legal health record.[facility]
--- OUTSIDE RECORDS SUMMARY | 2025-10-03 10:04 | XMS_ITS | Encounter Summary ---
Author Organization [facility] Address [address] [place] [address] Phone Care Team Providers Care Clerical Aide Name Role Phone Chiara Diggs MD Primary Care Provider Joelle Grande MD, MSc Unavailable Oly Kraus MD, MPH Unavailable + [phone] Daryn Donohue MD Unavailable [phone] Savanna Banegas Unavailable Cris Aburto HAUL DRIVER Unavailable + [phone] Arlin Cherry HAUL DRIVER Unavailable [phone] Jaspal Ordoñez MD Unavailable Joelle Grande MD, MSc Unavailable Danuta Patel MD Unavailable [phone] Encounter Details Date Type Department Care Team (Late st Contact Info) Description 06/22/2021 Procedure Pass [facility] [address] [place] [address] Social History Tobacco Use Types Packs/Day Years [...] Info) Description 07/29/2025 Procedure Pass [facility] Imaging Department, [facility], [place] [address] [facility], Floor [address]1 [place] [address] 07/29/2025 Procedure Pass [facility] Imaging Department, [facility], [place] [address] [facility], Floor [address]1 [place] [address] 07/31/2026 1:40 PM EDT Appointment [facility] Imaging Department, [facility], [place] [address] [facility], Floor [address] [place] [address] Danuta Patel MD [address] [place] [address] Agnes@[facility] 08/04/2026 10:30 AM EDT [facility], [address], 6th [place] [address] Danuta Patel MD [address] [place] [address] Agnes@[facility] documented as of this encounter Visit Diagnoses Not on filedocumented in this encounter Additional Health Concerns 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 02/28/2019 12/20/2022 1:[address] CoV-Presumed Comment:12/12: Symptom onset- fatigue, ST, cough, SOB 12/13: positive PCR outside lab (needs [facility] be [facility])- Yohana Noble RN 12/12/2021 12/13/2021 01/01/2022 1:[address] Assessment Noted Time PHQ-2 Depression Total Score: 0 11/12/19 1:45 PM EST documented as of this encounter Care Teams Clerical Aide Relationship Specialty Start Date End Date Chiara Diggs MD [address] [place] [address] [address] [place] [phone] PCP - General Internal Medicine 07/25/18 Joelle Grande MD, MSc [address] [place] [address] JOSÉ MANUEL@[facility] Surgeon Surgical Oncology 08/15/18 Oly Kraus MD, MPH [address] [place] [address] Lolis@[email or web address] Primary Oncologist Radiation Oncology 08/15/18 Daryn Donohue MD [address] [place] [address] Referring Physician Urology 08/19/18 Savanna Banegas [address] [place] [address] NESTOR@[facility] Calibration Technician 08/19/18 Cris Aburto, [address] [address] [email or web address] Hide Mill Worker 12/26/18 Arlin Cherry, [facility] [address] [place] [address] Maykel@[facility] Hide Mill Worker Oncology 07/26/19 Jaspal Ordoñez MD [address] [place] [address] [email or web address] Palliative Care 12/22/20 Joelle Grande MD, MSc [address] [place] [address] JOSÉ MANUEL@[facility] Surgical Oncology 03/07/21 Danuta Patel MD [address] [place] [address] Agnes@[email or web address] Medical Oncology 06/22/21 documented as of this encounter Additional Source Comments The information contained in this document represents components of the legal health record. It is not the complete legal health record.[facility]
--- OUTSIDE RECORDS SUMMARY | 2025-10-03 10:04 | XMS_ITS | Encounter Summary ---
Author Organization [facility] Address [address] [place] [address] Phone Care Team Providers Care Political Cartoonist Name Role Phone Chiara Diggs MD Primary Care Provider [phone] Joelle Grande MD, MSc Unavailable Oly Kraus MD, MPH Unavailable + [phone] Daryn Donohue MD Unavailable [phone] Savanna Banegas Unavailable Cris Aburto MECHANICAL SERVICE TECHNICIAN Unavailable [phone] Arlin Cherry MECHANICAL SERVICE TECHNICIAN Unavailable +[phone] Shun Schuster MD Unavailable Portia [email or web address] Jaspal Pettit MD Unavailable Joelle Grande MD, MSc Unavailable Danuta Patel MD Unavailable [phone] Encounter Details Date Type Department Care Team (Late st Contact Info) Description 12/22/2020 Procedure Pass [facility], [facility] [place], [place] [address] [facility], Floor [address]1 [place] [address] Social History Tobacco Use Types Packs/Day Years [...] Contact Info) Description 07/29/2025 Procedure Pass [facility] Imaging Department, [facility], [place] [address] [facility], Floor [address]1 [place] [address] 07/29/2025 Procedure Pass [facility] Imaging Department, [facility] [place] [address] [facility], Floor [address]1 [place] [address] 07/31/2026 1:40 PM EDT Appointment [facility] Imaging Department, [facility] [place] [address] [facility], Floor [address]1 [place] [address] Danuta Patel MD [address] [place] [address] Agnes@[facility] 08/04/2026 10:30 AM EDT [facility], [address], 6th [place] [address] Danuta Patel MD [address] [place] [address] Agnes@[facility] documented as of this encounter Visit Diagnoses [...] documented as of this encounter Care Teams Political Cartoonist Relationship Specialty Start Date End Date Chiara Diggs MD [address] [place] [address] [place] [phone] PCP - General Internal Medicine 07/25/18 Joelle Grande MD, MSc [address] [place] [address] JOSÉ MANUEL@[facility] Surgeon Surgical Oncology 08/15/18 Oly Kraus MD, MPH [address] [place] [address] Lolis@[facility] Primary Oncologist Radiation Oncology 08/15/18 Daryn Donohue MD [address] [place] [address] Referring Physician Urology 08/19/18 Savanna Banegas [address] [place] [address] NESTOR@[facility] Iron Assorter 08/19/18 Cris Aburto, [address] [address] [email or web address] Singer And Unloader 12/26/18 Arlin Cherry, [facility] [address] [place] [address] Maykel@[facility] Singer And Unloader Oncology 07/26/19 Shun Schuster MD Rohan@[email or web address] Primary Oncologist Medical Oncology 04/12/20 06/21/21 Jaspal Ordoñez MD [address] [place] [address] [email or web address] Palliative Care 12/22/20 Joelle Grande MD, MSc [address] [place] [address] JOSÉ MANUEL@[facility] Surgical Oncology 03/07/21 Danuta Patel MD [address] [place] [address] Agnes@[facility] Medical Oncology 06/22/21 documented as of this encounter Additional Source Comments The information contained in this document represents components of the legal health record. It is not the complete legal health record.[facility]
--- OUTSIDE RECORDS SUMMARY | 2025-10-03 10:04 | XMS_ITS | Encounter Summary ---
Author Organization [facility] Address [address] [place] [address] Phone Care Team Providers Care Roofing Technician Name Role Phone Chiara Diggs MD Primary Care Provider [phone] Joelle Grande MD, MSc Unavailable Oly Kraus MD, MPH Unavailable + [phone] Daryn Donohue MD Unavailable [phone] Savanna Banegas Unavailable Cris Aburto EDGER HAND Unavailable + [phone] Arlin Cherry EDGER HAND Unavailable [phone] Jaspal Ordoñez MD Unavailable Joelle Grande MD, MSc Unavailable Danuta Patel MD Unavailable [phone] Encounter Details Date Type Department Care Team (Late st Contact Info) Description 04/10/2023 Procedure Pass [facility] Admitting Dept Virtual Department 30 [place] [address] Social History Tobacco Use Types [...] Contact Info) Description 07/29/2025 Procedure Pass [facility] Imaging Department, [facility], [place] [address] [facility], Floor L1 [place] [address] 07/29/2025 Procedure Pass [facility] Imaging Department, [facility], [address], Floor [address]1 [place] [address] 07/31/2026 1:40 PM EDT Appointment [facility] Imaging Department, [facility], [place] [address] [facility], Floor [address]1 [place] [address] Danuta Patel MD [address] [place] [address] Agnes@[facility] 08/04/2026 10:30 AM EDT [facility], [address], 6th [place] [address] Danuta Patel MD [address] [place] [address] Agnes@[facility] documented as of this encounter Visit Diagnoses Not on filedocumented in this encounter Additional Health Concerns Assessment Noted Time PHQ-2 Depression Total Score: 0 11/12/19 20 1:45 PM EST documented as of this encounter Care Teams Roofing Technician Relationship Specialty Start Date End Date Chiara Diggs MD [address] [place] [address] [place] [phone] PCP - General Internal Medicine 07/25/18 Joelle Grande MD, MSc [address] [place] [address] JOSÉ MANUEL@[facility] Surgeon Surgical Oncology 08/15/18 Oly Kraus MD, MPH [address] [place] [address] Lolis@[facility] Primary Oncologist Radiation Oncology 08/15/18 Daryn Donohue MD [address] [place] [address] Referring Physician Urology 08/19/18 Savanna Banegas [address] [place] [address] NESTOR@[facility] Hydro Generation Manager 08/19/18 Cris Aburto, [facility] [address] [place] [address] [email or web address] Municipal Engineer 12/26/18 Arlin Cherry, [facility] [address] [place] [address] Maykel@[facility] Municipal Engineer Oncology 07/26/19 Jaspal Ordoñez MD [address] [place] [address] [email or web address] Palliative Care 12/22/20 Joelle Grande MD, MSc [address] [place] [address] JOSÉ MANUEL@[facility] Surgical Oncology 03/07/21 Danuta Patel MD [address] [place] [address] [email or web address] Medical Oncology 06/22/21 documented as of this encounter Additional Source Comments The information contained in this document represents components of the legal health record. It is not the complete legal health record.[facility]
--- OUTSIDE RECORDS SUMMARY | 2025-10-03 10:04 | XMS_ITS | Encounter Summary ---
Author Organization [facility] Address [address] [place] [address] Phone Care Team Providers Care Industrial Retrofit Designer Name Role Phone Chiara Diggs MD Primary Care Provider [phone] Joelle Grande MD, MSc Unavailable Oly Kraus MD, MPH Unavailable + [phone] Daryn Donohue MD Unavailable Savanna Banegas Unavailable Cris Aburto TELEPHONE ASSEMBLER Unavailable + [phone] Arlin Cherry TELEPHONE ASSEMBLER Unavailable [phone] Jaspal Ordoñez MD Unavailable Joelle Grande MD, MSc Unavailable Danuta Patel MD Unavailable [phone] Encounter Details Date Type Department Care Team (Late st Contact Info) Description 06/22/2021 [facility] [address] [place] [address] Social History Tobacco Use Types Packs/Day Years [...] Contact Info) Description 07/29/2025 Procedure Pass [facility] Imaging Department, [facility], [place] [address] [facility], Floor [address]1 [place] [address] 07/29/2025 Procedure Pass [facility] Imaging Department, [facility], [place] [address] [facility], Floor [address]1 [place] [address] 07/31/2026 1:40 PM EDT Appointment [facility] Imaging Department, [facility], [place] [address] [facility], Floor [address]1 [place] [address] Danuta Patel MD [address] [place] [address] Agnes@[facility] 08/04/2026 10:30 AM EDT [facility], [address], 6th [place] [address] Danuta Patel MD [address] [place] [address] Agnes@[facility] documented as of [...] documented as of this encounter Care Teams Industrial Retrofit Designer Relationship Specialty Start Date End Date Chiara Diggs MD [address] [place] [address] [address] [place] [phone] PCP - General Internal Medicine 07/25/18 Joelle Grande MD, MSc [address] [place] [address] JOSÉ MANUEL@[facility] Surgeon Surgical Oncology 08/15/18 Oly Kraus MD, MPH [address] [place] [address] Lolis@[facility] Primary Oncologist Radiation Oncology 08/15/18 Daryn Donohue MD [address] [place] [address] Referring Physician Urology 08/19/18 Savanna Banegas [address] [place] [address] NESTOR@[facility] Block Feeder 08/19/18 Cris Aburto, [address] [address] [email or web address] ed Prosthetic Aide 12/26/18 Arlin Cherry, [facility] [address] [place] [address] Maykel@[facility] Prosthetic Aide Oncology 07/26/19 Jaspal Ordoñez MD [address] [place] [address] [email or web address] Palliative Care 12/22/20 Joelle Grande MD, MSc [address] [place] [address] JOSÉ MANUEL@[email or web address] Surgical Oncology 03/07/21 Danuta Patel MD [address] [place] [address] Agnes@[facility] Medical Oncology 06/22/21 documented as of this encounter Additional Source Comments The information contained in this document represents components of the legal health record. It is not the complete legal health record.[facility]
--- OUTSIDE RECORDS SUMMARY | 2025-10-03 10:04 | XMS_ITS | Encounter Summary ---
Author Organization [facility] Address [address] [place] [address] Phone Care Team Providers Care Security Project Manager Name Role Phone Chiara Diggs MD Primary Care Provider [phone] Joelle Grande MD, MSc Unavailable Oly Kraus MD, MPH Unavailable + [phone] Daryn Donohue MD Unavailable aSvanna Banegas Unavailable Cris Aburto PARKING ENFORCEMENT TECHNICIAN Unavailable + [phone] Arlin Cherry PARKING ENFORCEMENT TECHNICIAN Unavailable [phone] Jaspal Ordoñez MD Unavailable Joelle Grande MD, MSc Unavailable Danuta Patel MD Unavailable [phone] Encounter Details Date Type Department Care Team (Late st Contact Info) Description 10/17/2023 Procedure Pass [facility], Ct Scan - [address] [address] Social History Tobacco Use Types Packs/Day Years [...] Pass [facility] Imaging Department, [facility], [place] [address] [facility], Floor L1 [place] [address] 07/29/2025 Procedure Pass [facility] Imaging Department, [facility], [address], Floor [address]1 [place] [address] 07/31/2026 1:40 PM EDT Appointment [facility] Imaging Department, [facility], [place] [address] [facility], Floor [address]1 [place] [address] Danuta Patel MD [address] [place] [address] Agnes@[facility] 08/04/2026 10:30 AM EDT [facility], [address], 6th [place] [address] Danuta Patel MD [address] [place] [address] Agnes@[facility] documented as of this encounter Visit Diagnoses Not on filedocumented in this encounter Additional Health Concerns Assessment Noted Time PHQ-2 Depression Total Score: 0 11/12/19 20 1:45 PM EST documented as of this encounter Care Teams Security Project Manager Relationship Specialty Start Date End Date Chiara Diggs MD [address] [place] [address] [place] [phone] PCP - General Internal Medicine 07/25/18 Joelle Grande MD, MSc [address] [place] [address] JOSÉ MANUEL@[facility] Surgeon Surgical Oncology 08/15/18 Oly Kraus MD, MPH [address] [place] [address] Lolis@[facility] Primary Oncologist Radiation Oncology 08/15/18 Daryn Donohue MD [address] [place] [address] Referring Physician Urology 08/19/18 Savanna Banegas [address] [place] [address] NESTOR@[facility] Reservation Agent 08/19/18 Cris Aburto, [facility] [address] [place] [address] [email or web address] Sales And In Home Delivery Specialist 12/26/18 Arlin Cherry, [facility] [address] [place] [address] Maykel@[facility] Home Delivery Specialist Oncology 07/26/19 Jaspal Ordoñez MD [address] [place] [address] Palliative Care 12/22/20 Joelle Grande MD, MSc [address] [place] [address] JOSÉM ANUEL@[email or web address] Surgical Oncology 03/07/21 Danuta Patel MD [address] [place] [address] Agnes@[facility] Medical Oncology 06/22/21 documented as of this encounter Additional Source Comments The information contained in this document represents components of the legal health record. It is not the complete legal health record.[facility]
--- OUTSIDE RECORDS SUMMARY | 2025-10-03 10:04 | XMS_ITS | Encounter Summary ---
Author Organization [facility] Address [address] [place] [address] Phone Care Team Providers Care Loft Rigger Name Role Phone Chiara Diggs MD Primary Care Provider [phone] Joelle Grande MD, MSc Unavailable Oly Kraus MD, MPH Unavailable + [phone] Valerie Conti MD Unavailable [phone] Daryn Donohue MD Unavailable Savanna Banegas Unavailable Sindy Isaacs BONE GRINDER Unavailable [phone] Cris Aburto BONE GRINDER Unavailable [phone] Arlin Cherry BONE GRINDER Unavailable [phone] Shun Schuster MD Unavailable Portia [email or web address] Jaspal Pettit MD Unavailable Joelle Grande MD, MSc Unavailable Danuta Patel MD Unavailable [phone] Encounter Details Date Type Department Care Team (Late st Contact Info) Description 02/20/2019 Procedure Pass [facility] Endoscopy Department [address] [place] [address] Social History Tobacco Use Types Packs/Day Years [...] Upcoming Encounters Date Type Department Care Team ([facility] st Contact Info) Description 07/29/2025 Procedure Pass [facility] Imaging Department, [facility], [place] [address] [facility], Floor L1 [place] [address] 07/29/2025 Procedure Pass [facility] Imaging Department, [facility], [place] [address] [facility], Floor L1 [place] [address] 07/31/2026 1:40 PM EDT Appointment [facility] Imaging Department, [facility], [place] [address] [facility], Floor [address]1 [place] [address] Danuta Patel MD [address] [place] [address] Agnes@[facility] 08/04/2026 10:30 AM EDT [facility], [address], 6th [place] [address] Danuta Patel MD [address] [place] [address] Agnes@[facility] documented as [...] documented as of this encounter Care Teams Loft Rigger Relationship Specialty Start Date End Date Dontae, Chiara Crandall MD [address] [place] [address] [address] [place] [phone] PCP - General Internal Medicine 07/25/18 Joelle Grande MD, MSc [address] [place] [address] JOSÉ MANUEL@[facility] Surgeon Surgical Oncology 08/15/18 Oly Kraus MD, MPH [address] [place] [address] Lolis@[facility] Primary Oncologist Radiation Oncology 08/15/18 Valerie Conti MD [address] [place] [address] Mariusz@[email or web address] Primary Oncologist Medical Oncology 08/15/18 04/11/20 Daryn Donohue MD [address] [place] [address] Referring Physician Urology 08/19/18 Savanna Banegas [address] [place] [address] NESTOR@[facility] Rag Room Supervisor 08/19/18 Sindy Isaacs, [address] [address] Gregorio@[facility] Intern Retail Oncology 09/16/18 07/25/19 Cris Aburto, [address] [address] [email or web address] Intern Retail 12/26/18 Arlin Cherry, [address] [address] Maykel[facility] Intern Retail Oncology 07/26/19 Shun Schuster MD Rohan@[facility] Primary Oncologist Medical Oncology 04/12/20 06/21/21 Jaspal Ordoñez MD [address] [place] [address] [email or web address] Palliative Care 12/22/20 Joelle Grande MD, MSc [address] [place] [address] JOSÉ MANUEL@[facility] Surgical Oncology 03/07/21 Danuta Patel MD [address] [place] [address] Agnes@[facility] Medical Oncology 06/22/21 documented as of this encounter Additional Source Comments The information contained in this document represents components of the legal health record. It is not the complete legal health record.[facility]
--- OUTSIDE RECORDS SUMMARY | 2025-10-03 10:04 | XMS_ITS | Encounter Summary ---
Author Organization [facility] Address [address] [place] [address] Phone Care Team Providers Care Occupational Work Experience Teacher Name Role Phone Chiara Diggs MD Primary Care Provider [phone] Joelle Grande MD, MSc Unavailable Oly Kraus MD, MPH Unavailable + [phone] Valerie Conti MD Unavailable [phone] Daryn Donohue MD Unavailable [phone] Savanna Banegas Unavailable Sindy Isaacs FIBER OPTIC SPLICER Unavailable [phone] Cris Aburto FIBER OPTIC SPLICER Unavailable [phone] Arlin Cherry FIBER OPTIC SPLICER Unavailable [phone] Shun Schuster MD Unavailable Portia [email or web address] Jaspal Pettit MD Unavailable Joelle Grande MD, MSc Unavailable Danuta Patel MD Unavailable [phone] Encounter Details Date Type Department Care Team (Late st Contact Info) Description 02/10/2019 Procedure Pass [facility] Endoscopy Department [address] [place] [address] Social History Tobacco Use Types Packs/Day Years [...] Upcoming Encounters Date Type Department Care Team ([facility] st Contact Info) Description 07/29/2025 Procedure Pass [facility] Imaging Department, [facility], [place] [address] [facility], Floor L1 [place] [address] 07/29/2025 Procedure Pass [facility] Imaging Department, [facility], [place] [address] [facility], Floor L1 [place] [address] 07/31/2026 1:40 PM EDT Appointment [facility] Imaging Department, [facility], [place] [address] [facility], Floor L1 [place] [address] Danuta Patel MD [address] [place] [address] Agnes@[facility] 08/04/2026 10:30 AM EDT [facility], [address], 6th [place] [address] Danuta Patel MD [address] [place] [address] Agnes@[facility] documented as of this [...] documented as of this encounter Care Teams Occupational Work Experience Teacher Relationship Specialty Start Date End Date Dontae, Chiara Crandall MD [address] [place] [address] Drive [address] [place] [phone] PCP - General Internal Medicine 07/25/18 Joelle Grande MD, MSc [address] [place] [address] JOSÉ MANUEL@[facility] Surgeon Surgical Oncology 08/15/18 Oly Kraus MD, MPH [address] [place] [phone] Lolis@[facility] Primary Oncologist Radiation Oncology 08/15/18 Valerie Conti MD [address] [place] [address] Mariusz@[facility] Primary Oncologist Medical Oncology 08/15/18 04/11/20 Daryn Donohue MD [address] [place] [address] Referring Physician Urology 08/19/18 Savanna Banegas [address] [place] [address] NESTOR@[email or web address] Supervisor Drying And Softening 08/19/18 Sindy Isaacs, [address] [address] Gregorio@[facility] Preliminary School Psychologist Oncology 09/16/18 07/25/19 Cris Aburto, [address] [address] delvin@[facility] Preliminary School Psychologist 12/26/18 Arlin Cherry, [address] [address] Maykel@[facility] Preliminary School Psychologist Oncology 07/26/19 Shun Schuster MD Rohan@[facility] Primary Oncologist Medical Oncology 04/12/20 06/21/21 Jaspal Ordoñez MD [address] [place] [address] [email or web address] Palliative Care 12/22/20 Jolele Grande MD, MSc [address] [place] [address] JOSÉ MANUEL@[facility] Surgical Oncology 03/07/21 Danuta Patel MD [address] [place] [address] Agnes@[facility] Medical Oncology 06/22/21 documented as of this encounter Additional Source Comments The information contained in this document represents components of the legal health record. It is not the complete legal health record.[facility]
--- OUTSIDE RECORDS SUMMARY | 2025-10-03 10:04 | XMS_ITS | Encounter Summary ---
Author Organization [facility] Address [address] [place] [address] Phone Care Team Providers Care Automobile Wrecker Name Role Phone Chiara Diggs MD Primary Care Provider [phone] Joelle Grande MD, MSc Unavailable Oly Kraus MD, MPH Unavailable + [phone] Daryn Donohue MD Unavailable Savanna Banegas Unavailable Cris Aburto BILINGUAL MEDICAL RECEPTIONIST Unavailable + [phone] Arlin Cherry BILINGUAL MEDICAL RECEPTIONIST Unavailable [phone] Jaspal Ordoñez MD Unavailable Joelle Grande MD, MSc Unavailable Danuta Patel MD Unavailable [phone] Encounter Details Date Type Department Care Team (Late st Contact Info) Description 04/25/2023 Procedure Pass [facility] 70 [place] [address] Social History Tobacco Use Types Packs/Day Years [...] Procedure Pass [facility] Imaging Department, [facility], [place] [address] [facility], Floor L1 [place] [address] 07/29/2025 Procedure Pass [facility] Imaging Department, [facility], [place] [address] [facility], Floor L1 [place] [address] 07/31/2026 1:40 PM EDT Appointment [facility] Imaging Department, [facility], [place] [address] [facility], Floor L1 [place] [address] Danuta Patel MD [address] [place] [address] Agnes@[facility] 08/04/2026 10:30 AM EDT [facility], [address], 6th [place] [address] Danuta Patel MD [address] [place] [address] Agnes@[facility] documented as of this encounter Visit Diagnoses Not on filedocumented in this encounter Additional Health Concerns Assessment Noted Time PHQ-2 Depression Total Score: 0 11/12/19 20 1:45 PM EST documented as of this encounter Care Teams Automobile Wrecker Relationship Specialty Start Date End Date Chiara Diggs MD [address] [place] [address] [place] [phone] PCP - General Internal Medicine 07/25/18 Joelle Grande MD, MSc [address] [place] [address] JOSÉ MANUEL@[email or web address] Surgeon Surgical Oncology 08/15/18 Oly Kraus MD, MPH [address] [place] [address] Lolis@[facility] Primary Oncologist Radiation Oncology 08/15/18 Daryn Donohue MD [address] [place] [address] Referring Physician Urology 08/19/18 Savanna Banegas [address] [place] [address] NESTOR@[facility] Asphalt Engineer 08/19/18 Cris Aburto, [address] [address] delvin@[email or web address] Road Roller Operator Hot Mix 12/26/18 Arlin Cherry, [address] [address] Maykel@[facility] Road Roller Operator Hot Mix Oncology 07/26/19 Jaspal Ordoñez MD [address] [place] [address] [email or web address] Palliative Care 12/22/20 Joelle Grande MD, MSc [address] [place] [address] JOSÉ MANUEL@[facility] Surgical Oncology 03/07/21 Danuta Patel MD [address] [place] [address] Agnes@[email or web address] Medical Oncology 06/22/21 documented as of this encounter Additional Source Comments The information contained in this document represents components of the legal health record. It is not the complete legal health record.[facility]
--- OUTSIDE RECORDS SUMMARY | 2025-10-03 10:04 | XMS_ITS | Encounter Summary ---
Author Organization [facility] Address [address] [place] [address] Phone Care Team Providers Care Nuclear Scientist Name Role Phone Chiara Diggs MD Primary Care Provider [phone] Joelle Grande MD, MSc Unavailable Oly Kraus MD, MPH Unavailable + [phone] Valerie Conti MD Unavailable [phone] Daryn Donohue MD Unavailable Savanna Banegas Unavailable Sindy Isaacs SENIOR STOCK PLAN ADMINISTRATOR Unavailable [phone] Cris Aburto SENIOR STOCK PLAN ADMINISTRATOR Unavailable [phone] Arlin Cherry SENIOR STOCK PLAN ADMINISTRATOR Unavailable [phone] Shun Schuster MD Unavailable Portia [email or web address] Jaspal Pettit MD Unavailable Joelle Grande MD, MSc Unavailable Danuta Patel MD Unavailable [phone] Encounter Details Date Type Department Care Team (Late st Contact Info) Description 02/04/2019 [facility] [address] [place] [address] Social History Tobacco Use Types Packs/Day Years [...] st Contact Info) Description 07/29/2025 Procedure Pass [facility] Imaging Department, [facility], [place] [address] [facility], [address] [place] [address] 07/29/2025 Procedure Pass [facility] Imaging Department, [facility] [address] [facility], [address] [place] [address] 07/31/2026 1:40 PM EDT Appointment [facility] Imaging Department, [facility], [place] [address] [facility], [address] [place] [address] Danuta Patel MD [address] [place] [address] Agnes@[email or web address] 08/04/2026 10:30 AM EDT Tele[facility], [facility] [address], 6th [place] [address] Danuta Patel MD [address] [place] [address] Agnes@[email or web address] documented as of this encounter [...] documented as of this encounter Care Teams Nuclear Scientist Relationship Specialty Start Date End Date Chiara Diggs MD [address] [place] [address] [address] [place] [phone] PCP - General Internal Medicine 07/25/18 Joelle Grande MD, MSc [address] [place] [address] JOSÉ MANUEL@[facility] Surgeon Surgical Oncology 08/15/18 Oly Kraus MD, MPH [address] [place] [address] Lolis@[facility] Primary Oncologist Radiation Oncology 08/15/18 Valerie Conti MD [address] [place] [address] Mariusz@[facility] Primary Oncologist Medical Oncology 08/15/18 04/11/20 Daryn Donohue MD [address] [place] [address] Referring Physician Urology 08/19/18 Savanna Banegas [address] [place] [address] NESTOR@[facility] Test Director 08/19/18 Sindy Isaacs, [address] [address] [email or web address] Dubbing Machine Operator Oncology 09/16/18 07/25/19 Cris Aburto, [address] [address] [email or web address] Dubbing Machine Operator 12/26/18 Arlin Cherry, [address] [address] ArlinBettyJo Ann@[facility] Dubbing Machine Operator Oncology 07/26/19 Shun Schuster MD Rohan@[email or web address] Primary Oncologist Medical Oncology 04/12/20 06/21/21 Jaspal Ordoñez MD [address] [place] [address] [email or web address] Palliative Care 12/22/20 Joelle Grande MD, MSc [address] [place] [address] JOSÉ MANUEL@[facility] Surgical Oncology 03/07/21 Danuta Patel MD [address] [place] [address] Agnes@[facility] Medical Oncology 06/22/21 documented as of this encounter Additional Source Comments The information contained in this document represents components of the legal health record. It is not the complete legal health record.[facility]
--- OUTSIDE RECORDS SUMMARY | 2025-10-03 10:04 | XMS_ITS | Encounter Summary ---
Author Organization [facility] Address [address] [place] [address] Phone Care Team Providers Care Analytics Director Name Role Phone Chiara Diggs MD Primary Care Provider [phone] Joelle Grande MD, MSc Unavailable Oly Kraus MD, MPH Unavailable Daryn Donohue MD Unavailable Savanna Banegas Unavailable Cris Aburto DISASTER RECOVERY ANALYST Unavailable + [phone] Arlin Cherry DISASTER RECOVERY ANALYST Unavailable [phone] Jaspal Ordoñez MD Unavailable Joelle Grande MD, MSc Unavailable Danuta Patel MD Unavailable [phone] Encounter Details Date Type Department Care Team (Late st Contact Info) Description 09/27/2022 Procedure Pass [facility], [facility] [place], [place] [address] [facility], [address] [place] [address] Social History Tobacco Use Types Packs/Day Years [...] st Contact Info) Description 07/29/2025 Procedure Pass [facility] Imaging Department, [facility], [place] [address] [facility], [address] [place] [address] 07/29/2025 Procedure Pass [facility] Imaging Department, [facility], [place] [address] [facility], [address] [place] [address] 07/31/2026 1:40 PM EDT Appointment [facility] Imaging Department, [facility], [place] [address] [facility], [address] [place] [address] Danuta Patel MD [address] [place] [address] Agnes@[facility] 08/04/2026 10:30 AM EDT Tele[facility], [address], 6th [place] [address] Danuta Patel MD [address] [place] [address] Agnes@[facility] documented as of this encounter Visit Diagnoses Not on filedocumented in this encounter Additional Health Concerns 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 Surgeon Surgical Oncology 08/15/18 Oly Kraus MD, MPH [address] [place] [address] Lolis@[facility] Primary Oncologist Radiation Oncology 08/15/18 Daryn Donohue MD [address] [place] [address] Referring Physician Urology 08/19/18 Savanna Banegas [address] [place] [address] NESTOR@[facility] Typewriters Functional Tester 08/19/18 Cris Aburto, [address] [address] [email or web address] Senior It Assistant 12/26/18 Arlin Cherry, [address] [address] Maykel@[facility] Senior It Assistant Oncology 07/26/19 Jaspal Ordoñez MD [address] [place] [address] [email or web address] Palliative Care 12/22/20 Joelle Grande MD, MSc [address] [place] [address] JOSÉ MANUEL@[email or web address] Surgical Oncology 03/07/21 Danuta Patel MD [address] [place] [address] [email or web address] Medical Oncology 06/22/21 documented as of this encounter Additional Source Comments The information contained in this document represents components of the legal health record. It is not the complete legal health record.[facility]
--- OUTSIDE RECORDS SUMMARY | 2025-10-03 10:04 | XMS_ITS | Encounter Summary ---
Author Organization [facility] Address [address] [place] [address] Phone Care Team Providers Care Telephony Engineer Name Role Phone Chiara Diggs MD Primary Care Provider [phone] Joelle Grande MD, MSc Unavailable Oly Kraus MD, MPH Unavailable + [phone] Valerie Conti MD Unavailable [phone] Daryn Donohue MD Unavailable Savanna Banegas Unavailable Sindy Isaacs GAS TREATER Unavailable [phone] Cris Aburto GAS TREATER Unavailable [phone] Arlin Cherry GAS TREATER Unavailable [phone] Shun Schuster MD Unavailable Portia [email or web address] Jaspal Pettit MD Unavailable Joelle Grande MD, MSc Unavailable Danuta Patel MD Unavailable [phone] Encounter Details Date Type Department Care Team (Late st Contact Info) Description 02/20/2019 Procedure [facility] [address] [place] [address] Social History Tobacco Use Types Packs/Day Years [...] Contact Info) Description 07/29/2025 Procedure Pass [facility] Imaging Department, [facility], [place] [address] [facility], Floor [address] [place] [address] 07/29/2025 Procedure Pass [facility] Imaging Department, [facility] [address] [facility], Floor [address] [place] [address] 07/31/2026 1:40 PM EDT Appointment [facility] Imaging Department, [facility], [place] [address] [facility], [address] [place] [address] Danuta Patel MD [address] [place] [address] [email or web address] 08/04/2026 10:30 AM EDT Telemedicine Center [facility] Oncology, [facility] Cancer [address], 6th [place] [address] Danuta Patel MD [address] [place] [address] Agnes@[facility] documented as of this encounter Visit Diagnoses Not on filedocumented in this encounter Additional Health Concerns 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 02/28/2019 12/20/2022 1:[address] CoV-Presumed Comment:12/12: Symptom onset- fatigue, ST, cough, SOB 12/13: positive PCR outside lab (needs to be uploaded to [email or web address])- Yohana Noble RN 12/12/2021 12/13/2021 01/01/2022 1:[address] documented as of this encounter Care Teams Telephony Engineer Relationship Specialty Start Date End Date Po, Chiara Crandall MD [address] [place] [address] [place] [phone] PCP - General Internal Medicine 07/25/18 Joelle Grande MD, MSc [address] [place] [address] JOSÉ MANUEL@[facility] Surgeon Surgical Oncology 08/15/18 Oly Kraus MD, MPH [address] [place] [address] Lolis@[facility] Primary Oncologist Radiation Oncology 08/15/18 Valerie Conti MD [address] [place] [address] Mariusz@[facility] Primary Oncologist Medical Oncology 08/15/18 04/11/20 Daryn Donohue MD [address] [place] [address] Referring Physician Urology 08/19/18 Savanna Banegas [address] [place] [address] [email or web address]@[facility] Sleeve Bottom Feller 08/19/18 Sindy Isaacs, [address] [address] Gregorio@[facility] Business Intelligence Etl Developer Oncology 09/16/18 07/25/19 Cris Aburto, [address] [address] [email or web address] Business Intelligence Etl Developer 12/26/18 Arlin Cherry, [address] [address] Maykel@[facility] Business Intelligence Etl Developer Oncology 07/26/19 Shun Schuster MD Rohan@[facility] Primary Oncologist Medical Oncology 04/12/20 06/21/21 Jaspal Ordoñez MD [address] [place] [address] [email or web address] Palliative Care 12/22/20 Joelle Grande MD, MSc [address] [place] [address] JOSÉ MANUEL@[facility] Surgical Oncology 03/07/21 Danuta Patel MD [address] [place] [address] Agnes@[facility] Medical Oncology 06/22/21 documented as of this encounter Additional Source Comments The information contained in this document represents components of the legal health record. It is not the complete legal health record.[facility]
--- OUTSIDE RECORDS SUMMARY | 2025-10-03 10:04 | XMS_ITS | Encounter Summary ---
Author Organization [facility] Address [address] [place] [address] Phone Care Team Providers Care Baby Registry Sales Consultant Name Role Phone Chiara Diggs MD Primary Care Provider [phone] Joelle Grande MD, MSc Unavailable Oly Kraus MD, MPH Unavailable + [phone] Valerie Conti MD Unavailable [phone] Daryn Donohue MD Unavailable Savanna Banegas Unavailable Sindy Isaacs AMMUNITION SPECIALIST Unavailable [phone] Cris Aburto AMMUNITION SPECIALIST Unavailable [phone] Arlin Cherry AMMUNITION SPECIALIST Unavailable [phone] Shun Schuster MD Unavailable Portia [email or web address] Jaspal Pettit MD Unavailable Joelle Grande MD, MSc Unavailable Danuta Patel MD Unavailable [phone] Encounter Details Date Type Department Care Team (Late st Contact Info) Description 08/15/2018 [facility] [address] [place] [address] Social History Tobacco Use Types Packs/Day Years Used Date Smoking Tobacco: Former Cigarettes 0.3 2 1 962 - 2642 Smokeless Tobacco: Never Alcohol Use Standard Drinks/Week [...] st Contact Info) Description 07/29/2025 Procedure Pass [facility] Imaging Department, [facility], [place] [address] [facility], Floor [address] [place] [address] 07/29/2025 Procedure Pass [facility] Imaging Department, [facility], [place] [address] [facility], Floor [address] [place] [address] 07/31/2026 1:40 PM EDT Appointment [facility] Imaging Department, [facility], [place] [address] [facility], [address] [place] [address] Danuta Patel MD [address] [place] [address] Agnes@[facility] 08/04/2026 10:30 AM EDT Telemedicine [facility], [address], 6th [place] [address] Danuta Patel MD [address] [place] [address] Agnes@[facility] documented as of this encounter Visit Diagnoses Not on filedocumented in this encounter Additional Health Concerns 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 02/28/2019 12/20/2022 1:[address] CoV-Presumed Comment:12/12: Symptom onset- fatigue, ST, cough, SOB 12/13: positive PCR outside lab (needs to be uploaded to [facility])- Yohana Noble RN 12/12/2021 12/13/2021 01/01/2022 1:[address] documented as of this encounter Care Teams Baby Registry Sales Consultant Relationship Specialty Start Date End Date Chiara Diggs MD [address] [place] [address] [address] [place] [phone] PCP - General Internal Medicine 07/25/18 Joelle Grande MD, MSc [address] [place] [address] JOSÉ MANUEL@[facility] Surgeon Surgical Oncology 08/15/18 Oly Kraus MD, MPH [address] [place] [address] Lolis@[facility] Primary Oncologist Radiation Oncology 08/15/18 Valerie Conti MD [address] [place] [address] Mariusz@[facility] Primary Oncologist Medical Oncology 08/15/18 04/11/20 Daryn Donohue MD [address] [place] [address] Referring Physician Urology 08/19/18 Savanna Banegas [address] [place] [address] NESTOR@[facility] Quick Sketch Artist 08/19/18 Sindy Isaacs, [address] [address] [email or web address]@[facility] Loss Prevention Research Engineer Oncology 09/16/18 07/25/19 Cris Aburto, [address] [address] [email or web address] Loss Prevention Research Engineer 12/26/18 Arlin Cherry, [address] [address] Maykel@[facility] Loss Prevention Research Engineer Oncology 07/26/19 Shun Schuster MD Rohan@[facility] Primary Oncologist Medical Oncology 04/12/20 06/21/21 Jaspal Ordoñez MD [address] [place] [address] [email or web address] Palliative Care 12/22/20 Joelle Grande MD, MSc [address] [place] [address] JOSÉ MANUEL@[facility] Surgical Oncology 03/07/21 Danuta Patel MD [address] [place] [address] Agnes@[facility] Medical Oncology 06/22/21 documented as of this encounter Additional Source Comments The information contained in this document represents components of the legal health record. It is not the complete legal health record.[facility]
--- OUTSIDE RECORDS SUMMARY | 2025-10-03 10:05 | XMS_ITS | Encounter Summary ---
Author Organization [facility] Address [address] [place] [address] Phone Care Team Providers Care Screen Cleaner Name Role Phone Chiara Diggs MD Primary Care Provider [phone] Joelle Grande MD, MSc Unavailable Oly Kraus MD, MPH Unavailable + [phone] Valerie Conti MD Unavailable [phone] Daryn Donohue MD Unavailable Savanna Banegas Unavailable Sindy Isaacs INSIDE SALES ASSOCIATE Unavailable [phone] Cris Aburto INSIDE SALES ASSOCIATE Unavailable [phone] Arlin Cherry INSIDE SALES ASSOCIATE Unavailable [phone] Shun Schuster MD Unavailable Portia [email or web address] Jaspal Pettit MD Unavailable Joelle Grande MD, MSc Unavailable Danuta Patel MD Unavailable [phone] Encounter Details Date Type Department Care Team (Late st Contact Info) Description 03/05/2019 Transcribe Orders [facility] Echocardiography [address] [place] [address] Chiara Diggs MD [address] [facility] [address] [place] [phone] Social History Tobacco Use Types Packs/Day [...] Info) Description 07/29/2025 Procedure Pass [facility] Imaging Department, [facility], [place] [address] [facility], Floor [address] [place] [address] 07/29/2025 Procedure Pass [facility] Imaging Department, [facility], [place] [address] [facility], [address] [place] [address] 07/31/2026 1:40 PM EDT Appointment [facility] Imaging Department, [facility], [place] [address] [facility], [address] [place] [address] Danuta Patel MD [address] [place] [address] Agnes@[facility] 08/04/2026 10:30 AM EDT Telemedicine [facility], [address], 6th [place] [address] Danuta Patel MD [address] [place] [address] Agnes@[facility] [...] documented as of this encounter Care Teams Screen Cleaner Relationship Specialty Start Date End Date Po, Chiara Crandall MD [address] [place] [address] Drive [address] [place] [phone] PCP - General Internal Medicine 07/25/18 Joelle Grande MD, MSc [address] [place] [address] JOSÉ MANUEL@[facility] Surgeon Surgical Oncology 08/15/18 Oly Kraus MD, MPH [address] [place] [address] Lolis@[facility] Primary Oncologist Radiation Oncology 08/15/18 Valerie Conti MD [address] [place] [address] [email or web address] Primary Oncologist Medical Oncology 08/15/18 04/11/20 Daryn Donohue MD [address] [place] [address] Referring Physician Urology 08/19/18 Savanna Banegas [address] [place] [address] NESTOR@[facility] Electronics Recycler 08/19/18 Sindy Isaacs, [address] [address] Gregorio@[facility] Vp Scientific Affairs Oncology 09/16/18 07/25/19 Cris Aburto, [address] [address] [email or web address] Vp Scientific Affairs 12/26/18 Arlin Cherry, [place] [address] Maykel@[facility] Vp Scientific Affairs Oncology 07/26/19 Shun Schuster MD Rohan@[email or web address] Primary Oncologist Medical Oncology 04/12/20 06/21/21 Jaspal Ordoñez MD [address] [place] [address] [email or web address] Palliative Care 12/22/20 Joelle Grande MD, MSc [address] [place] [address] JOSÉ MANUEL@[facility] Surgical Oncology 03/07/21 Danuta Patel MD [address] [place] [address] Agnes@[facility] Medical Oncology 06/22/21 documented as of this encounter Additional Source Comments The information contained in this document represents components of the legal health record. It is not the complete legal health record.[facility]
--- OUTSIDE RECORDS SUMMARY | 2025-10-03 10:05 | XMS_ITS | Encounter Summary ---
Author Organization [facility] Address [address] [place] [address] Phone Care Team Providers Care Content Engineer Name Role Phone Chiara Diggs MD Primary Care Provider [phone] Joelle Grande MD, MSc Unavailable Oly Kraus MD, MPH Unavailable + [phone] Valerie Conti MD Unavailable [phone] Daryn Donohue MD Unavailable [phone] Savanna Banegas Unavailable Sindy Isaacs FIRESTOP/CONTAINMENT WORKER Unavailable +[phone] Cris Aburto FIRESTOP/CONTAINMENT WORKER Unavailable +[phone] Arlin Cherry FIRESTOP/CONTAINMENT WORKER Unavailable [phone] Shun Schuster MD Unavailable Portia [email or web address] Jaspal Pettit MD Unavailable Joelle Grande MD, MSc Unavailable Danuta Patel MD Unavailable [phone] Encounter Details Date Type Department Care Team (Late st Contact Info) Description 03/27/[address] [facility] Periop [address] [place] [address] Social History Tobacco Use Types Packs/Day Years [...] Pass [facility] Imaging Department, [facility], [place] [address] [facility], [place] [address]1 [place] [address] 07/29/2025 Procedure Pass [facility] Imaging Department, [facility], [place] [address] [facility], [place] [address] [place] [address] 07/31/2026 1:40 PM EDT Appointment [facility] Imaging Department, [facility], [place] [address] [facility], [place] [address] [place] [address] Danuta Patel MD [address] [place] [address] Anges@[facility] 08/04/2026 10:30 AM EDT [facility], [address], 6th [place] [address] Danuta Patel MD [address] [place] [address] Agnes@[email or web address] documented as of this encounter [...] documented as of this encounter Care Teams Content Engineer Relationship Specialty Start Date End Date Dontae, Chiara Crandall MD [address] [place] [address] [address] [place] [phone] PCP - General Internal Medicine 07/25/18 Joelle Grande MD, MSc [address] [place] [address] JOSÉ MANUEL@[facility] Surgeon Surgical Oncology 08/15/18 Oly Kraus MD, MPH [address] [place] [address] Lolis@[facility] Primary Oncologist Radiation Oncology 08/15/18 Valerie Conti MD [address] [place] [address] Mariusz@[email or web address] Primary Oncologist Medical Oncology 08/15/18 04/11/20 Daryn Donohue MD [address] [place] [address] Referring Physician Urology 08/19/18 Savanna Banegas [address] [place] [address] NESTOR@[email or web address] Legal Services Manager 08/19/18 Sindy Isaacs, [address] [address] Gregorio@[facility] Allergy Physician Oncology 09/16/18 07/25/19 Cris Aburto, [address] [address] [email or web address] Allergy Physician 12/26/18 Arlin Cherry, [address] [address] Maykel@[facility] Allergy Physician Oncology 07/26/19 Shun Schuster MD Rohan@[email or web address] Primary Oncologist Medical Oncology 04/12/20 06/21/21 Jaspal Ordoñez MD [address] [place] [address] [email or web address] Palliative Care 12/22/20 Joelle Grande MD, MSc [address] [place] [address] JOSÉ MANUEL@[facility] Surgical Oncology 03/07/21 Danuta Patel MD [address] [place] [address] Agnes@[facility] Medical Oncology 06/22/21 documented as of this encounter Additional Source Comments The information contained in this document represents components of the legal health record. It is not the complete legal health record.[facility]
--- OUTSIDE RECORDS SUMMARY | 2025-10-03 10:05 | XMS_ITS | Encounter Summary ---
Author Organization [facility] Address [address] [place] [address] Phone Care Team Providers Care Physical Education Specialist Name Role Phone Chiara Diggs MD Primary Care Provider [phone] Joelle Grande MD, MSc Unavailable Oly Kraus MD, MPH Unavailable + [phone] Daryn Donohue MD Unavailable Savanna Banegas Unavailable Cris Aburto PLANT CARE WORKER Unavailable + [phone] Arlin Cherry PLANT CARE WORKER Unavailable [phone] Jaspal Ordoñez MD Unavailable Joelle Grande MD, MSc Unavailable Danuta Patel MD Unavailable [phone] Encounter Details Date Type Department Care Team (Late st Contact Info) Description 07/02/2024 Procedure Pass [facility], [facility] [place], [place] [address] [facility], Floor L1 [place] [address] Social History Tobacco Use Types Packs/Day Years [...] st Contact Info) Description 07/29/2025 Procedure Pass [facility] Imaging Department, [facility], [address], [facility] L1 [place] [address] 07/29/2025 Procedure Pass [facility] Imaging Department, [facility], [address], Floor [address]1 [place] [address] 07/31/2026 1:40 PM EDT Appointment [facility] Imaging Department, [facility], [address], Floor [address]1 [place] [address] Danuta Patle MD [address] [place] [address] [email or web address] 08/04/2026 10:30 AM EDT [facility], [address], 6th [place] [address] Danuta Patel MD [address] [place] [address] Agnes@[facility] documented as of this encounter Visit Diagnoses Not on filedocumented in this encounter Additional Health Concerns Assessment Noted Time PHQ-2 Depression Total Score: 0 11/12/19 20 1:45 PM EST documented as of this encounter Care Teams Physical Education Specialist Relationship Specialty Start Date End Date Chiara Diggs MD [address] [place] [address] [place] [phone] PCP - General Internal Medicine 07/25/18 Joelle Grande MD, MSc [address] [place] [address] JOSÉ MANUEL@[facility] Surgeon Surgical Oncology 08/15/18 Oly Kraus MD, MPH [address] [place] [address] Lolis@[facility] Primary Oncologist Radiation Oncology 08/15/18 Daryn Donohue MD [address] [place] [address] Referring Physician Urology 08/19/18 Savanna Banegas [address] [place] [address] NESTOR@[facility] Inspector Handbag Frames 08/19/18 Cris Aburto, [facility] [address] [place] [address] [email or web address] Industrial Psychologist 12/26/18 Arlin Cherry, [facility] [address] [place] [address] Maykel@[facility] Industrial Psychologist Oncology 07/26/19 Jaspal Ordoñez MD [address] [place] [address] [email or web address] Palliative Care 12/22/20 Joelle Grande MD, MSc [address] [place] [address] JOSÉ MANUEL@[email or web address] Surgical Oncology 03/07/21 Danuta Patel MD [address] [place] [address] Agnes@[email or web address] Medical Oncology 06/22/21 documented as of this encounter Additional Source Comments The information contained in this document represents components of the legal health record. It is not the complete legal health record.[facility]
--- OUTSIDE RECORDS SUMMARY | 2025-10-03 10:05 | XMS_ITS | Encounter Summary ---
Author Organization [facility] Address [address] [place] [address] Phone Care Team Providers Care Retail Greeter Name Role Phone Chiara Diggs MD Primary Care Provider [phone] Joelle Grande MD, MSc Unavailable Oly Kraus MD, MPH Unavailable + [phone] Valerie Conti MD Unavailable [phone] Daryn Donohue MD Unavailable Savanna Banegas Unavailable Sindy Isaacs STOCK MIXER Unavailable [phone] Cris Aburto STOCK MIXER Unavailable +[phone] Arlin Cherry STOCK MIXER Unavailable [phone] Shun Schuster MD Unavailable Portia [email or web address] Jaspal Pettit MD Unavailable Joelle Grande MD, MSc Unavailable Danuta Patel MD Unavailable [phone] Encounter Details Date Type Department Care Team (Late st Contact Info) Description 08/19/2018 Procedure Pass [facility] [address] [place] [address] Social History Tobacco Use Types Packs/Day Years Used Date Smoking Tobacco: Former Cigarettes 0.3 2 1 962 - 1676 Smokeless Tobacco: Never Alcohol Use Standard Drinks/Week [...] Contact Info) Description 07/29/2025 Procedure Pass [facility] Imaging Department, [facility], [place] [address] [facility], Floor [address] [place] [address] 07/29/2025 Procedure Pass [facility] Imaging Department, [facility], [place] [address] [facility], [place] [address]1 [place] [address] 07/31/2026 1:40 PM EDT Appointment [facility] Imaging Department, [facility], [place] [address] [facility], [address] [place] [address] Danuta Patel MD [address] [place] [address] Agnes@[facility] 08/04/2026 10:30 AM EDT [facility], [address], 6th [place] [address] Danuta Patel MD [address] [place] [address] Agnes@[facility] documented as of this encounter [...] documented as of this encounter Care Teams Retail Greeter Relationship Specialty Start Date End Date Chiara Diggs MD [address] [place] [address] [address] [place] [phone] PCP - General Internal Medicine 07/25/18 Joelle Grande MD, MSc [address] [place] [address] JOSÉ MANUEL@[facility] Surgeon Surgical Oncology 08/15/18 Oly Kraus MD, MPH [address] [place] [address] Lolis@[facility] Primary Oncologist Radiation Oncology 08/15/18 Valerie Conti MD [address] [place] [address] Mariusz@[facility] Primary Oncologist Medical Oncology 08/15/18 04/11/20 Daryn Donohue MD [address] [place] [address] Referring Physician Urology 08/19/18 Savanna Banegas [address] [place] [address] NESTOR@[email or web address] Oxygen Furnace Operator 08/19/18 Sindy Isaacs, [address] [address] [email or web address]@[facility] Supervisor Hardboard Oncology 09/16/18 07/25/19 Cedricgracia Galaviz Paulina, [address] [address] [email or web address] Supervisor Hardboard 12/26/18 Arlin Cherry, [address] [address] Maykel@[facility] Supervisor Hardboard Oncology 07/26/19 Shun Schuster MD Rohan@[facility] Primary Oncologist Medical Oncology 04/12/20 06/21/21 Jaspal Ordoñez MD [address] [place] [address] [email or web address] Palliative Care 12/22/20 Joelle Grande MD, MSc [address] [place] [address] JOSÉ MAUNEL@[facility] Surgical Oncology 03/07/21 Danuta Patel MD [address] [place] [address] Agnes@[facility] Medical Oncology 06/22/21 documented as of this encounter Additional Source Comments The information contained in this document represents components of the legal health record. It is not the complete legal health record.[facility]
--- OUTSIDE RECORDS SUMMARY | 2025-10-03 10:05 | XMS_ITS | Encounter Summary ---
Author Organization [facility] Address [address] [place] [address] Phone Care Team Providers Care Delicatessen Goods Stock Clerk Name Role Phone Chiara Diggs MD Primary Care Provider Joelle Grande MD, MSc Unavailable Oly Kraus MD, MPH Unavailable + [phone] Daryn Donohue MD Unavailable Savanna Banegas Unavailable Cris Aburto BENCH WORKER HOLLOW HANDLE Unavailable + [phone] Arlin Cherry BENCH WORKER HOLLOW HANDLE Unavailable [phone] Jaspal Ordoñez MD Unavailable Joelle Grande MD, MSc Unavailable Danuat Patel MD Unavailable [phone] Encounter Details Date Type Department Care Team (Late st Contact Info) Description 07/02/2024 Procedure Pass [facility], [facility] [place], [place] [address] [facility], Floor [address]1 [place] [address] Social History Tobacco Use Types Packs/Day Years [...] [facility] Imaging Department, [facility], [address], [facility] [address] [place] [address] 07/29/2025 Procedure Pass [facility] Imaging Department, [facility], [address], Floor [address]1 [place] [address] 07/31/2026 1:40 PM EDT Appointment [facility] Imaging Department, [facility], [address], Floor [address] [place] [address] Danuta Patel MD [address] [place] [address] [email or web address] 08/04/2026 10:30 AM EDT [facility], [address], 6th [place] [address] Danuta Patel MD [address] [place] [address] Agnes@[facility] documented as of this encounter Visit Diagnoses Not on filedocumented in this encounter Additional Health Concerns Assessment Noted Time PHQ-2 Depression Total Score: 0 11/12/19 20 1:45 PM EST documented as of this encounter Care Teams Delicatessen Goods Stock Clerk Relationship Specialty Start Date End Date Chiara Diggs MD [address] [place] [address] [place] [phone] PCP - General Internal Medicine 07/25/18 Joelle Grande MD, MSc [address] [place] [address] JOSÉ MANUEL@[facility] Surgeon Surgical Oncology 08/15/18 Oly Kraus MD, MPH [address] [place] [address] Lolis@[facility] Primary Oncologist Radiation Oncology 08/15/18 Daryn Donohue MD [address] [place] [address] Referring Physician Urology 08/19/18 Savanna Banegas [address] [place] [address] NESTOR@[facility] Cost Estimating Manager 08/19/18 Cris Aburto, [facility] [address] [place] [address] [email or web address] Maintenance Technician 12/26/18 Arlin Cherry, [facility] [address] [place] [address] Maykel@[facility] Maintenance Technician Oncology 07/26/19 Jaspal Ordoñez MD [address] [place] [address] [email or web address] Palliative Care 12/22/20 Joelle Grande MD, MSc [address] [place] [address] JOSÉ MANUEL@[email or web address] Surgical Oncology 03/07/21 Danuta Patel MD [address] [place] [address] Agnes@[email or web address] Medical Oncology 06/22/21 documented as of this encounter Additional Source Comments The information contained in this document represents components of the legal health record. It is not the complete legal health record.[facility]
== END 2025-10-03 10:00 | disposition home or self-care (01) ==
LOC: HO.CT 09:59
PROVIDERS: PCP Internal Medicine; Visit Provider Internal Medicine
DX: R51.9 Headache, unspecified (principal); G89.29 Other chronic pain
CPT/HCPCS: 70450

== ENCOUNTER → 2025-10-03 10:02 | Outpatient (BNV) | payer BC, MEDICARE, SELFPAY | PROVIDERS: PCP Internal Medicine; Visit Provider Radiology Diagnostic Radiology | DX: I67.2 Cerebral atherosclerosis (principal); J32.0 Chronic maxillary sinusitis; H47.323 Drusen of optic disc, bilateral | CPT/HCPCS: 70450 ==

== ENCOUNTER 2025-11-03 09:41 | Outpatient (REF) | payer BC, MEDICARE, SELFPAY ==
[2025-11-03 10:09] LABS: MANUAL DIFF FLAG NO
[2025-11-03 10:53] LABS: Hematocrit 32.2 % (37.0-47.0); Hemoglobin 10.7 g/dl (12.0-16.0); Imm Gran Abs Auto 0.05 X10*3/uL (0.00-0.03); Imm Gran Pct Auto 0.8 % (0.0-0.4); Lymphocytes Absolute Auto 1.2 X10*3/uL (1.2-4.9); Mean Corpuscular HGB Conc 33.2 g/dl (31.0-35.0); Mean Corpuscular Hemoglobin 30.8 pg (27.0-33.0); Mean Corpuscular Volume 92.8 fL (80.0-98.0); NRBC Abs Auto 0.000 X10*3/uL (0.0-0.012); NRBC Pct Auto 0.0 /100WBC (0.0-0.2); Platelet Count 283 X10*3/uL (160-400); Red Blood Count 3.47 X10*6/uL (4.20-5.50); White Blood Count 6.1 X10*3/uL (4.8-10.8)
[2025-11-03 11:50] LABS: Appearance Urine Clear; Glucose Urine UA Negative (Negative); PH 7.5 (5.0-9.0); Specific Gravity - Urine 1.010 (1.005-1.025)
[2025-11-03 12:29] LABS: Alanine Aminotransferase 29 U/L (0-31); Albumin Level 2.9 g/dL (3.5-5.0); Alkaline Phosphatase 85 U/L (39-117); Anion Gap 10 (12-20); Aspartate Amino Transferase 25 U/L (5-31); Blood Urea Nitrogen 9 mg/dL (9-16); Calcium 9.1 mg/dL (8.4-10.2); Carbon Dioxide 26 mmol/L (22-29); Chloride 105 mmol/L (96-108); Cholesterol 140 mg/dL (<200); Estimated Glomerular Filt Rate 41; HDL Cholesterol 100 mg/dL (>40); Magnesium 1.7 mg/dL (1.6-2.6); Potassium 3.7 mmol/L (3.3-5.1); Sodium 137 mmol/L (135-145); Total Protein 4.9 g/dL (6.5-8.0); Triglycerides 50 mg/dL (<150); Uric Acid 4.8 mg/dL (2.4-5.7)
--- OUTSIDE RECORDS SUMMARY | 2025-11-03 12:29 | XMS_ITS | Encounter Summary ---
Author Organization [facility] Address [address] [place] [address] Phone Care Team Providers Care Adult Care Provider Name Role Phone Chiara Diggs MD Primary Care Provider [phone] Joelle Grande MD, MSc Unavailable Oly Kraus MD, MPH Unavailable + [phone] Valerie Conti MD Unavailable +[phone] Daryn Donohue MD Unavailable [phone] Savanna Banegas Unavailable Cris Aburto HOG RIBBER Unavailable [phone] Arlin Cherry HOG RIBBER Unavailable [phone] Shun Schuster MD Unavailable Portia Baez@[email or web address]. Jaspal Pettit MD Unavailable Joelle Grande MD, MSc Unavailable Danuta Patel MD Unavailable [phone] Encounter Details Date Type Department Care Team (Late st Contact Info) Description 04/07/2020 Procedure Pass [facility] Imaging Department, [facility] [place], [place] [address] [facility], Floor L1 [place] [address] Social History Tobacco Use Types Packs/Day Years [...] Department, [facility], [place] [address] [facility], [facility] L1 [place] [address] 07/29/2025 Procedure Pass [facility] Imaging Department, [facility], [place] [address] [facility], [facility] L1 [place] [address] 07/31/2026 1:40 PM EDT Appointment [facility] Imaging Department, [facility], [place] [address] [facility], [facility] L1 [place] [address] Danuta Patel MD [address] [place] [address] Agnes@[email or web address] 08/04/2026 10:30 AM EDT [facility], [address], 6th [place] [address] Danuta Patel MD [address] [place] [address] Agnes@[facility] documented as of this encounter Visit Diagnoses [...] documented as of this encounter Care Teams Adult Care Provider Relationship Specialty Start Date End Date Chiara Diggs MD [address] [place] [address] [address] [place] [phone] PCP - General Internal Medicine 07/25/18 Joelle Grande MD, MSc [address] [place] [address] JOSÉ MANUEL@[facility] Surgeon Surgical Oncology 08/15/18 Oly Kraus MD, MPH [address] [place] [address] [email or web address] Primary Oncologist Radiation Oncology 08/15/18 Valerie Conti MD [address] [place] [address] [email or web address] Primary Oncologist Medical Oncology 08/15/18 04/11/20 Daryn Donohue MD [address] [place] [address] Referring Physician Urology 08/19/18 Savanna Banegas [address] [place] [address] NESTOR@[facility] Area Field Person 08/19/18 Cris Aburto, [facility] [address] [place] [address] [email or web address] Orange Picker 12/26/18 Arlin Cherry, [address] [address] Maykel@[facility] Orange Picker Oncology 07/26/19 Shun Schuster MD Rohan@[facility] Primary Oncologist Medical Oncology 04/12/20 06/21/21 Jaspal Ordoñez MD [address] [place] [address] [email or web address] Palliative Care 12/22/20 Joelle Grande MD, MSc [address] [place] [address] JOSÉ MANUEL@[facility] Surgical Oncology 03/07/21 Danuta Patel MD [address] [place] [phone] Agnes@[facility] Medical Oncology 06/22/21 documented as of this encounter Additional Source Comments The information contained in this document represents components of the legal health record. It is not the complete legal health record.[facility]
--- OUTSIDE RECORDS SUMMARY | 2025-11-03 12:29 | XMS_ITS | Encounter Summary ---
Author Organization [facility] Address [address] [place] [address] Phone Care Team Providers Care Recruiting Associate Name Role Phone Chiara Diggs MD Primary Care Provider [phone] Joelle Grande MD, MSc Unavailable Oly Kraus MD, MPH Unavailable + [phone] Daryn Donohue MD Unavailable Savanna Banegas Unavailable Cris Aburto LICENSED CLUB MANAGER Unavailable [phone] Arlin Cherry LICENSED CLUB MANAGER Unavailable [phone] Shun Schuster MD Unavailable Portia [email or web address] Jaspal Pettit MD Unavailable Joelle Grande MD, MSc Unavailable Danuta Patel MD Unavailable [phone] Encounter Details Date Type Department Care Team (Late st Contact Info) Description 05/19/2020 [facility], [facility] [place] [address] [facility], Floor [address]1 [place] [address] Social History Tobacco Use Types Packs/Day Years [...] st Contact Info) Description 07/29/2025 Procedure Pass [facility] Imaging Department, [facility] [place] [address] [facility], Floor [address]1 [place] [address] 07/29/2025 Procedure Pass [facility] Imaging Department, [facility] [place] [address] [facility], Floor [address]1 [place] [address] 07/31/2026 1:40 PM EDT Appointment [facility] Imaging Department, [facility] [place] [address] [facility], Floor [address] [place] [address] Danuta Patel MD [address] [place] [address] Agnes@[facility] 08/04/2026 10:30 AM EDT [facility], [address], 6th [place] [address] Danuta Patel MD [address] [place] [address] Agnes@[facility] documented as [...] documented as of this encounter Care Teams Recruiting Associate Relationship Specialty Start Date End Date Chiara Diggs MD [address] [place] [address] [address] [place] [phone] PCP - General Internal Medicine 07/25/18 Joelle Grande MD, MSc [address] [place] [address] JOSÉ MANUEL@[facility] Surgeon Surgical Oncology 08/15/18 Oly Kraus MD, MPH [address] [place] [address] Lolis@[facility] Primary Oncologist Radiation Oncology 08/15/18 Daryn Donohue MD [address] [place] [address] Referring Physician Urology 08/19/18 Savanna Banegas [address] [place] [address] NESTOR@[facility] Leather Piece Inspector 08/19/18 Cris Aburto [address] [address] [email or web address] Teaching Music Lessons 12/26/18 Arlin Cherry, [facility] [address] [place] [address] Maykel@[facility] Teaching Music Lessons Oncology 07/26/19 Shun Schuster MD Rohan@[facility] Primary Oncologist Medical Oncology 04/12/20 06/21/21 Jaspal Ordoñez MD [address] [place] [address] [email or web address] Palliative Care 12/22/20 Joelle Grande MD, MSc [address] [place] [address] JOSÉ MANUEL@[email or web address] [facility] Surgical Oncology 03/07/21 Danuta Patel MD [address] [place] [address] Agnes@[facility] Medical Oncology 06/22/21 documented as of this encounter Additional Source Comments The information contained in this document represents components of the legal health record. It is not the complete legal health record.[facility]
--- OUTSIDE RECORDS SUMMARY | 2025-11-03 12:29 | XMS_ITS | Encounter Summary ---
Author Organization [facility] Address [address] [place] [address] Phone Care Team Providers Care Director Data Management Name Role Phone Chiara Diggs MD Primary Care Provider Joelle Grande MD, MSc Unavailable Oly Kraus MD, MPH Unavailable + [phone] Daryn Donohue MD Unavailable [phone] Savanna Banegas Unavailable Cris Aburto COURT SPECIALIST Unavailable + [phone] SPECIALIST Unavailable [phone] Jaspal Ordoñez MD Unavailable Joelle Grande MD, MSc Unavailable Danuta Patel MD Unavailable [phone] Encounter Details Date Type Department Care Team (Late st Contact Info) Description 01/18/2022 Procedure Pass [facility], [facility] [place], [place] [address] [facility], Floor L1 [place] [address] Social History Tobacco Use Types Packs/Day Years [...] [facility] Imaging Department, [facility] [address] [facility], Floor L1 [place] [address] 07/29/2025 Procedure Pass [facility] Imaging Department, [facility] [address] [facility], Floor L1 [place] [address] 07/31/2026 1:40 PM EDT Appointment [facility] Imaging Department, [facility] [address] [facility], Floor L1 [place] [address] Danuta Patel MD [address] [place] [address] Agnes@[facility] 08/04/2026 10:30 AM EDT [facility], [address], 6th [place] [address] Danuta Patel MD [address] [place] [address] Agnes@[facility] documented as of this encounter Visit Diagnoses Not on filedocumented in this encounter Additional Health Concerns 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 02/28/2019 12/20/2022 1:[address] Assessment Noted Time PHQ-2 Depression Total Score: 0 11/12/19 1:45 PM EST documented as of this encounter Care Teams Director Data Management Relationship Specialty Start Date End Date Dontae Chiara Crandall MD [address] [place] [address] [address] [place] [phone] PCP - General Internal Medicine 07/25/18 Joelle Grande MD, MSc [address] [place] [address] JOSÉ MANUEL@[facility] Surgeon Surgical Oncology 08/15/18 Oly Kraus MD, MPH [address] [place] [address] Lolis@[facility] Primary Oncologist Radiation Oncology 08/15/18 Daryn Donohue MD [address] [place] [address] Referring Physician Urology 08/19/18 Savanna Banegas [address] [place] [address] NESTOR@[facility] Amusement Park Entertainer 08/19/18 Cris Aburto, [address] [address] [email or web address] Gift Shop Manager 12/26/18 Arlin Cherry, [address] [address] Maykel@[facility] Gift Shop Manager Oncology 07/26/19 Jaspal Ordoñez MD [address] [place] [address] [email or web address] Palliative Care 12/22/20 Joelle Grande MD, MSc [address] [place] [address] JOSÉ MANUEL@[email or web address] Surgical Oncology 03/07/21 Danuta Patel MD [address] [place] [address] Agnes@[email or web address] Medical Oncology 06/22/21 documented as of this encounter Additional Source Comments The information contained in this document represents components of the legal health record. It is not the complete legal health record.[facility]
--- OUTSIDE RECORDS SUMMARY | 2025-11-03 12:29 | XMS_ITS | Encounter Summary ---
Author Organization [facility] Address [address] [place] [address] Phone Care Team Providers Care Tube Cleaner Name Role Phone Chiara Diggs MD Primary Care Provider [phone] Joelle Grande MD, MSc Unavailable Oly Kraus MD, MPH Unavailable + [phone] Daryn Donohue MD Unavailable [phone] Savanna Banegas Unavailable Cris Aburto MECHANICAL PRESS OPERATOR Unavailable + [phone] Arlin Cherry MECHANICAL PRESS OPERATOR Unavailable [phone] Jaspal Ordoñez MD Unavailable Joelle Grande MD, MSc Unavailable Danuta Patel MD Unavailable [phone] Encounter Details Date Type Department Care Team (Late st Contact Info) Description 01/18/2022 Procedure Pass [facility], [facility] [place], [place] [address] [facility], Floor L1 [place] [address] Social History Tobacco Use Types Packs/Day Years [...] [facility] Imaging Department, [facility], [place] [address] [facility], Floor [address]1 [place] [address] 07/29/2025 Procedure Pass [facility] Imaging Department, [facility], [place] [address] [facility], Floor L1 [place] [address] 07/31/2026 1:40 PM EDT Appointment [facility] Imaging Department, [facility], [place] [address] [facility], Floor [address] [place] [address] Danuta Patel MD [address] [place] [address] Agnes@[facility] 08/04/2026 10:30 AM EDT [facility], [address], 6th [place] [address] Danuta Patel MD [address] [place] [address] Agnes@[facility] documented as of this encounter Visit Diagnoses Not on filedocumented in this encounter Additional Health Concerns 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 02/28/2019 12/20/2022 1:[address] Assessment Noted Time PHQ-2 Depression Total Score: 0 11/12/19 1:45 PM EST documented as of this encounter Care Teams Tube Cleaner Relationship Specialty Start Date End Date Dontae Chiara Crandall MD [address] [place] [address] [address] [place] [phone] PCP - General Internal Medicine 07/25/18 Joelle Grande MD, MSc [address] [place] [address] JOSÉ MANUEL@[facility] Surgeon Surgical Oncology 08/15/18 Oly Kraus MD, MPH [address] [place] [address] Lolis@[facility] Primary Oncologist Radiation Oncology 08/15/18 Daryn Donohue MD [address] [place] [address] Referring Physician Urology 08/19/18 Savanna Banegas [address] [place] [address] NESTOR@[facility] Propeller Driven Airplane Mechanic 08/19/18 Cris Aburto, [address] [address] [email or web address] Public Health Representative 12/26/18 Arlin Cherry, [address] [address] Maykel@[facility] Public Health Representative Oncology 07/26/19 Jaspal Ordoñez MD [address] [place] [address] [email or web address] Palliative Care 12/22/20 Joelle Grande MD, MSc [address] [place] [address] JOSÉ MANUEL@[email or web address] Surgical Oncology 03/07/21 Danuta Patel MD [address] [place] [address] Agnes@[email or web address] Medical Oncology 06/22/21 documented as of this encounter Additional Source Comments The information contained in this document represents components of the legal health record. It is not the complete legal health record.[facility]
--- OUTSIDE RECORDS SUMMARY | 2025-11-03 12:29 | XMS_ITS | Encounter Summary ---
Author Organization [facility] Address [address] [place] [address] Phone Care Team Providers Care Assayer Name Role Phone Chiara Diggs MD Primary Care Provider [phone] Joelle Grande MD, MSc Unavailable Oly Kraus MD, MPH Unavailable + [phone] Valerie Conti MD Unavailable [phone] Daryn Donohue MD Unavailable [phone] Savanna Banegas Unavailable Cris Aburto COMPUTER TECHNICIAN Unavailable [phone] Arlin Cherry COMPUTER TECHNICIAN Unavailable [phone] Shun Schuster MD Unavailable Portia [email or web address]. Jaspal Pettit MD Unavailable Joelle Grande MD, MSc Unavailable Danuta Patel MD Unavailable [phone] Encounter Details Date Type Department Care Team (Late st Contact Info) Description 04/07/2020 Procedure Pass [facility] Imaging [facility], [facility] [place], [place] [address] [facility], Floor [address]1 [place] [address] Social History Tobacco Use Types Packs/Day Years [...] Contact Info) Description 07/29/2025 Procedure Pass [facility] Imaging Department, [facility], [place] [address] [facility], [facility] L1 [place] [address] 07/29/2025 Procedure Pass [facility] Imaging Department, [facility], [place] [address] [facility], [facility] L1 [place] [address] 07/31/2026 1:40 PM EDT Appointment [facility] Imaging Department, [facility], [place] [address] [facility], [facility] L1 [place] [address] Danuta Patel MD [address] [place] [address] Agnes@[facility] 08/04/2026 10:30 AM EDT Tele[facility], [address], 6th [place] [address] Danuta Patel MD [address] [place] [address] Agnes@[facility] documented as of this encounter Visit [...] documented as of this encounter Care Teams Assayer Relationship Specialty Start Date End Date Chiara Diggs MD [address] [place] [address] [address] [place] [phone] PCP - General Internal Medicine 07/25/18 Joelle Grande MD, MSc [address] [place] [address] JOSÉ MANUEL@[facility] Surgeon Surgical Oncology 08/15/18 Oly Kraus MD, MPH [address] [place] [address] Lolis@[email or web address] Primary Oncologist Radiation Oncology 08/15/18 Valerie Conti MD [address] [place] [address] [email or web address] Primary Oncologist Medical Oncology 08/15/18 04/11/20 Daryn Donohue MD [address] [place] [address] Referring Physician Urology 08/19/18 Savanna Banegas [address] [place] [address] NESTOR@[facility] Religious Ritual Slaughterer 08/19/18 Cris Aburto, [facility] [address] [place] [address] [email or web address] Nail Making Machine Tender 12/26/18 Arlin Cherry, [address] [address] Maykel@[facility] Nail Making Machine Tender Oncology 07/26/19 Shun Schuster MD Rohan@[facility] Primary Oncologist Medical Oncology 04/12/20 06/21/21 Jaspal Ordoñez MD [address] [place] [address] [email or web address] Palliative Care 12/22/20 Joelle Grande MD, MSc [address] [place] [address] JOSÉ MANUEL@[facility] Surgical Oncology 03/07/21 Danuta Patel MD [address] [place] [address] Agnes@[email or web address] Medical Oncology 06/22/21 documented as of this encounter Additional Source Comments The information contained in this document represents components of the legal health record. It is not the complete legal health record.[facility]
--- OUTSIDE RECORDS SUMMARY | 2025-11-03 12:30 | XMS_ITS | Encounter Summary ---
Author Organization [facility] Address [address] [place] [address] Phone Care Team Providers Care Sweatband Shaper Name Role Phone Chiara Diggs MD Primary Care Provider [phone] Joelle Grande MD, MSc Unavailable Oly Kraus MD, MPH Unavailable + [phone] Valerie Conti MD Unavailable [phone] Daryn Donohue MD Unavailable Savanna Banegas Unavailable Sindy Isaacs CONTAINER FINISHING INSPECTOR Unavailable [phone] Cris Aburto CONTAINER FINISHING INSPECTOR Unavailable [phone] Arlin Cherry CONTAINER FINISHING INSPECTOR Unavailable [phone] Shun Schuster MD Unavailable Portia [email or web address] Jaspal Pettit MD Unavailable Joelle Grande MD, MSc Unavailable Danuta Patel MD Unavailable [phone] Encounter Details Date Type Department Care Team (Late st Contact Info) Description 02/04/2019 Procedure Pass [facility] Endoscopy Department [address] [place] [address] Social History Tobacco Use Types Packs/Day Years [...] Upcoming Encounters Date Type Department Care Team ([facility] st Contact Info) Description 07/29/2025 Procedure Pass [facility] Imaging Department, [facility], [place] [address] [facility], Floor L1 [place] [address] 07/29/2025 Procedure Pass [facility] Imaging Department, [facility] [address] [facility], Floor L1 [place] [address] 07/31/2026 1:40 PM EDT Appointment [facility] Imaging Department, [facility], [place] [address] [facility], Floor L1 [place] [address] Danuta Patel MD [address] [place] [address] Agnes@[facility] 08/04/2026 10:30 AM EDT [facility], [address], 6th [place] [address] Danuta Patel MD [address] [place] [address] Agnes@[facility] documented as of this encounter Visit Diagnoses [...] documented as of this encounter Care Teams Sweatband Shaper Relationship Specialty Start Date End Date Dontae, Chiara Crandall MD [address] [place] [address] [address] [place] [phone] PCP - General Internal Medicine 07/25/18 Joelle Grande MD, MSc [address] [place] [address] JOSÉ MANUEL@[facility] Surgeon Surgical Oncology 08/15/18 Oly Kraus MD, MPH [address] [place] [address] Lolis@[facility] Primary Oncologist Radiation Oncology 08/15/18 Valerie Conti MD [address] [place] [address] Mariusz@[facility] Primary Oncologist Medical Oncology 08/15/18 04/11/20 Daryn Donohue MD [address] [place] [address] Referring Physician Urology 08/19/18 Savanna Banegas [address] [place] [address] NESTOR@[facility] Supervisor Assembly And Packing 08/19/18 Sindy Isaacs, [address] [address] Gregorio@[facility] Carpet Layer Oncology 09/16/18 07/25/19 Cris Aburto, [address] [address] [email or web address] Carpet Layer 12/26/18 Arlin Cherry, [address] [address] Maykel@[facility] Carpet Layer Oncology 07/26/19 Shun Schuster MD Rohan@[facility] Primary Oncologist Medical Oncology 04/12/20 06/21/21 Jaspal Ordoñez MD [address] [place] [address] [email or web address] Palliative Care 12/22/20 Joelle Grande MD, MSc [address] [place] [address] JOSÉ MANUEL@[facility] Surgical Oncology 03/07/21 Danuta Patel MD [address] [place] [address] Agnes@[facility] Medical Oncology 06/22/21 documented as of this encounter Additional Source Comments The information contained in this document represents components of the legal health record. It is not the complete legal health record.[facility]
--- OUTSIDE RECORDS SUMMARY | 2025-11-03 12:30 | XMS_ITS | Encounter Summary ---
Author Organization [facility] Address [address] [place] [address] Phone Care Team Providers Care Electronic Equipment Maint Tech Name Role Phone Chiara Diggs MD Primary Care Provider [phone] Joelle Grande MD, MSc Unavailable lOy Kraus MD, MPH Unavailable + [phone] Daryn Donohue MD Unavailable [phone] Savanna Banegas Unavailable Cris Aburto DOCTOR OF NAPRAPATHIC MEDICINE Unavailable [phone] Arlin Cherry DOCTOR OF NAPRAPATHIC MEDICINE Unavailable [phone] Shun Schuster MD Unavailable Portia Baez@[email or web address] Jaspal Pettit MD Unavailable Joelle Grande MD, MSc Unavailable Danuta Patel MD Unavailable [phone] Encounter Details Date Type Department Care Team (Late st Contact Info) Description 12/22/2020 Procedure [facility] Imaging [facility], [facility] [place], [place] [address] [facility], Floor L1 [place] [address] Social History Tobacco Use Types Packs/Day Years [...] Pass [facility] Imaging Department, [facility], [place] [address] [facility], Floor L1 [place] [address] 07/29/2025 Procedure Pass [facility] Imaging Department, [facility], [place] [address] [facility], Floor L1 [place] [address] 07/31/2026 1:40 PM EDT Appointment [facility] Imaging Department, [facility], [place] [address] [facility], Floor L1 [place] [address] Danuta Patel MD [address] [place] [address] Agnes@[facility] 08/04/2026 10:30 AM EDT [facility], [address], 6th [place] [address] Danuta Patel MD [address] [place] [address] Agnes@[facility] documented as of this [...] documented as of this encounter Care Teams Electronic Equipment Maint Tech Relationship Specialty Start Date End Date Chiara Diggs MD [address] [place] [address] [place] [phone] PCP - General Internal Medicine 07/25/18 Joelle Grande MD, MSc [address] [place] [address] JOSÉ MANUEL@[facility] Surgeon Surgical Oncology 08/15/18 Oly Kraus MD, MPH [address] [place] [address] Lolis@[facility] Primary Oncologist Radiation Oncology 08/15/18 Daryn Donohue MD [address] [place] [address] Referring Physician Urology 08/19/18 Savanna Banegas [address] [place] [address] NESTOR@[facility] Manager Bar 08/19/18 Cris Aburto, [address] [address] [email or web address] Physical Therapy Resident 12/26/18 Arlin Cherry, [facility] [address] [place] [address] Maykel@[facility] Physical Therapy Resident Oncology 07/26/19 Shun Schuster MD Rohan@[email or web address] Primary Oncologist Medical Oncology 04/12/20 06/21/21 Jaspal Ordoñez MD [address] [place] [address] [email or web address] Palliative Care 12/22/20 Joelle Grande MD, MSc [address] [place] [address] JOSÉ MANUEL@[email or web address] Surgical Oncology 03/07/21 Danuta Patel MD [address] [place] [address] Agnes@[facility] Medical Oncology 06/22/21 documented as of this encounter Additional Source Comments The information contained in this document represents components of the legal health record. It is not the complete legal health record.[facility]
--- OUTSIDE RECORDS SUMMARY | 2025-11-03 12:30 | XMS_ITS | Encounter Summary ---
Author Organization [facility] Address [address] [place] [address] Phone Care Team Providers Care Air Control Electronics Operator Name Role Phone Chiara Diggs MD Primary Care Provider [phone] Joelle Grande MD, MSc Unavailable Oly Kraus MD, MPH Unavailable + [phone] Valerie Conti MD Unavailable +[phone] Daryn Donohue MD Unavailable Savanna Banegas Unavailable Sindy Isaacs PROTECTIVE SERVICES CASE WORKER Unavailable [phone] Cris Aburto PROTECTIVE SERVICES CASE WORKER Unavailable +[phone] Arlin Cherry PROTECTIVE SERVICES CASE WORKER Unavailable +[phone] Shun Schuster MD Unavailable Portia [email or web address] Jaspal Pettit MD Unavailable Joelle Grande MD, MSc Unavailable Danuta Patel MD Unavailable [phone] Encounter Details Date Type Department Care Team (Late st Contact Info) Description 12/24/2018 Transcribe Orders [facility] [address] [place] [address] Chiara Diggs MD [address] [place] [address] [address] [place] [phone] Social History Tobacco Use Types Packs/Day [...] Info) Description 07/29/2025 Procedure Pass [facility] Imaging Department, [facility], [place] [address] [facility], Floor [address]1 [place] [address] 07/29/2025 Procedure Pass [facility] Imaging Department, [facility] [place] [address] [facility], Floor [address]1 [place] [address] 07/31/2026 1:40 PM EDT Appointment [facility] Imaging Department, [facility], [place] [address] [facility], Floor [address]1 [place] [address] Danuta Patel MD [address] [place] [address] Agnes@[facility] 08/04/2026 10:30 AM EDT [facility], [address], 6th [place] [address] Danuta Patel MD [address] [place] [address] Agnes@[facility] documented as of this encounter [...] documented as of this encounter Care Teams Air Control Electronics Operator Relationship Specialty Start Date End Date Chiara Diggs MD [address] [place] [address] [place] [phone] PCP - General Internal Medicine 07/25/18 Joelle Grande MD, MSc [address] [place] [address] JOSÉ MANUEL@[facility] Surgeon Surgical Oncology 08/15/18 Oly Kraus MD, MPH [address] [place] [address] Lolis@[facility] Primary Oncologist Radiation Oncology 08/15/18 Valerie Conti MD [address] [place] [address] Mariusz@[email or web address] Primary Oncologist Medical Oncology 08/15/18 04/11/20 Daryn Donohue MD [address] [place] [address] Referring Physician Urology 08/19/18 Savanna Banegas [address] [place] [address] NESTOR@[facility] Stove Polisher 08/19/18 Sindy Isaacs, [address] [address] Gregorio@[facility] Carry Out Clerk Oncology 09/16/18 07/25/19 Cris Aburto, [address] [address] [email or web address] Carry Out Clerk 12/26/18 Arlin Cherry, [address] [address] Maykel@[facility] Carry Out Clerk Oncology 07/26/19 Shun Schuster MD Rohan@[email or web address] Primary Oncologist Medical Oncology 04/12/20 06/21/21 Jaspal Ordoñez MD [address] [place] [address] [email or web address] Palliative Care 12/22/20 Joelle Grande MD, MSc [address] [place] [address] JOSÉ MANUEL@[facility] Surgical Oncology 03/07/21 Danuta Patel MD [address] [place] [address] Agnes@[facility] Medical Oncology 06/22/21 documented as of this encounter Additional Source Comments The information contained in this document represents components of the legal health record. It is not the complete legal health record.[facility]
--- OUTSIDE RECORDS SUMMARY | 2025-11-03 12:30 | XMS_ITS | Encounter Summary ---
Author Organization [facility] Address [address] [place] [address] Phone Care Team Providers Care E Learning Specialist Name Role Phone Chiara Diggs MD Primary Care Provider [phone] Joelel Grande MD, MSc Unavailable Oly Kraus MD, MPH Unavailable + [phone] Daryn Donohue MD Unavailable [phone] Savanna Banegas Unavailable Cris Aburto SENIOR EXAMINER Unavailable + [phone] Arlin Cherry SENIOR EXAMINER Unavailable +[phone] Jaspal Ordoñez MD Unavailable Joelle Grande MD, MSc Unavailable Danuta Patel MD Unavailable [phone] Encounter Details Date Type Department Care Team (Late st Contact Info) Description 10/17/2023 Procedure Pass [facility], Ct Scan - [address] [address] Social History Tobacco Use Types Packs/Day Years [...] Pass [facility], [facility], [place] [address] [facility], Floor [address]1 [place] [address] 07/29/2025 Procedure Pass [facility] Imaging Department, [facility], [address], [address] [place] [address] 07/31/2026 1:40 PM EDT Appointment [facility] Imaging Department, [facility], [place] [address] [facility], Floor [address] [place] [address] Danuta Patel MD [address] [place] [address] Agnes@[facility] 08/04/2026 10:30 AM EDT [facility], [address], 6th [place] [address] Danuta Patel MD [address] [place] [address] Agnes@[email or web address] documented as of this encounter Visit Diagnoses Not on filedocumented in this encounter Additional Health Concerns Assessment Noted Time PHQ-2 Depression Total Score: 0 11/12/19 20 1:45 PM EST documented as of this encounter Care Teams E Learning Specialist Relationship Specialty Start Date End Date Chiara Diggs MD [address] [place] [address] [place] [phone] PCP - General Internal Medicine 07/25/18 Joelle Grande MD, MSc [address] [place] [address] JOSÉ MANUEL@[facility] Surgeon Surgical Oncology 08/15/18 Oly Kraus MD, MPH [address] [place] [address] Lolis@[facility] Primary Oncologist Radiation Oncology 08/15/18 Daryn Donohue MD [address] [place] [address] Referring Physician Urology 08/19/18 Savanna Banegas [address] [place] [address] NESTOR@[facility] Grey Percher 08/19/18 Cris Aburto, [facility] [address] [place] [address] [email or web address]@[facility] Field Map Technician 12/26/18 Arlin Cherry, [facility] [address] [place] [address] Maykel@[facility] Field Map Technician Oncology 07/26/19 Jaspal Ordoñez MD [address] [place] [address] Palliative Care 12/22/20 Joelle Grande MD, MSc [address] [place] [address] JOSÉ MANUEL@[email or web address] Surgical Oncology 03/07/21 Danuta Patel MD [address] [place] [address] Agnes@[facility] Medical Oncology 06/22/21 documented as of this encounter Additional Source Comments The information contained in this document represents components of the legal health record. It is not the complete legal health record.[facility]
--- OUTSIDE RECORDS SUMMARY | 2025-11-03 12:30 | XMS_ITS | Encounter Summary ---
Author Organization [facility] Address [address] [place] [address] Phone Care Team Providers Care Auto Brake Mechanic Name Role Phone Chiara Diggs MD Primary Care Provider [phone] Joelle Grande MD, MSc Unavailable Oly Kraus MD, MPH Unavailable + [phone] Daryn Donohue MD Unavailable Savanna Banegas Unavailable Cris Aburto SECURITY COORDINATOR Unavailable + [phone] Arlin Cherry SECURITY COORDINATOR Unavailable [phone] Jaspal Ordoñez MD Unavailable Joelle Grande MD, MSc Unavailable Danuta Patel MD Unavailable [phone] Encounter Details Date Type Department Care Team (Late st Contact Info) Description 04/25/2023 Procedure [facility] [address] [place] [address] Social History Tobacco Use Types Packs/Day Years [...] st Contact Info) Description 07/29/2025 Procedure Pass [facility] Imaging Department, [place], [place] [address] [facility], Floor [address]1 [place] [address] 07/29/2025 Procedure Pass [facility] Imaging Department, [facility], [place] [address] [facility], Floor [address] [place] [address] 07/31/2026 1:40 PM EDT Appointment [facility] Imaging Department, [facility] [place], [place] [address] [facility], Floor [address] [place] [address] Danuta Patel MD [address] [place] [address] Agnes@[facility] 08/04/2026 10:30 AM EDT Telemedicine [facility], [address], 6th [place] [address] Danuta Patel MD [address] [place] [address] Agnes@[facility] documented as of this encounter Visit Diagnoses Not on filedocumented in this encounter Additional Health Concerns Assessment Noted Time PHQ-2 Depression Total Score: 0 11/12/19 20 1:45 PM EST documented as of this encounter Care Teams Auto Brake Mechanic Relationship Specialty Start Date End Date Chiara Diggs MD [address] [place] [address] [place] [phone] PCP - General Internal Medicine 07/25/18 Joelle Grande MD, MSc [address] [place] [address] JOSÉ MANUEL@[facility] Surgeon Surgical Oncology 08/15/18 Oly Kraus MD, MPH [address] [place] [address] Lolis@[facility] Primary Oncologist Radiation Oncology 08/15/18 Daryn Donohue MD [address] [place] [address] Referring Physician Urology 08/19/18 Savanna Banegas [address] [place] [address] NESTOR@[facility] Medical Office Secretary 08/19/18 Cris Aburto, [address] [address] [email or web address] Business Quality Assurance Analyst 12/26/18 Arlin Cherry, [address] [address] Maykel@[facility] Business Quality Assurance Analyst Oncology 07/26/19 Jaspal Ordoñez MD [address] [place] [address] [email or web address] Palliative Care 12/22/20 Joelle Grande MD, MSc [address] [place] [address] JOSÉ MANUEL@[facility] Surgical Oncology 03/07/21 Danuta Patel MD [address] [place] [address] Agnes@[facility] Medical Oncology 06/22/21 documented as of this encounter Additional Source Comments The information contained in this document represents components of the legal health record. It is not the complete legal health record.[facility]
--- OUTSIDE RECORDS SUMMARY | 2025-11-03 12:30 | XMS_ITS | Encounter Summary ---
Author Organization [facility] Address [address] [place] [address] Phone Care Team Providers Care Sports Book Board Attendant Name Role Phone Chiara Diggs MD Primary Care Provider [phone] Joelle Grande MD, MSc Unavailable Oly Kraus MD, MPH Unavailable + [phone] Valerie Conti MD Unavailable +[phone] Daryn Donohue MD Unavailable [phone] Savanna Banegas Unavailable Sindy Isaacs LABORATORY MACHINIST Unavailable [phone] Cris Aburto LABORATORY MACHINIST Unavailable [phone] Arlin Cherry LABORATORY MACHINIST Unavailable [phone] Shun Schuster MD Unavailable Portia Baez@[email or web address] Jaspal Pettit MD Unavailable Joelle Grande MD, MSc Unavailable Danuta Patel MD Unavailable [phone] Encounter Details Date Type Department Care Team (Late st Contact Info) Description 11/26/2018 Procedure Pass [facility] Periop [address] [place] [address] Social History Tobacco Use Types Packs/Day Years [...] Pass [facility] Imaging Department, [facility], [place] [address] [facility], Floor L1 [place] [address] 07/29/2025 Procedure Pass [facility] Imaging Department, [facility] [place] [address] [facility], Floor [address]1 [place] [address] 07/31/2026 1:40 PM EDT Appointment [facility] Imaging Department, [facility] [place] [address] [facility], Floor [address]1 [place] [address] Danuta Patel MD [address] [place] [address] Agnes@[facility] 08/04/2026 10:30 AM EDT Tele[facility], [address], 6th [place] [address] Danuta Patel MD [address] [place] [address] Agnes@[facility] documented as of this encounter [...] documented as of this encounter Care Teams Sports Book Board Attendant Relationship Specialty Start Date End Date Dontae, Chiara Crandall MD [address] [place] [address] [address] [place] [phone] PCP - General Internal Medicine 07/25/18 Joelle Grande MD, MSc [address] [place] [address] JOSÉ MANUEL@[facility] Surgeon Surgical Oncology 08/15/18 Oly Kraus MD, MPH [address] [place] [address] Lolis@[facility] Primary Oncologist Radiation Oncology 08/15/18 Valerie Conti MD [address] [place] [address] Mariusz@[facility] Primary Oncologist Medical Oncology 08/15/18 04/11/20 Daryn Donohue MD [address] [place] [address] Referring Physician Urology 08/19/18 Savanna Banegas [address] [place] [address] NESTOR@[email or web address] Tool Inspector 08/19/18 Sindy Isaacs, [address] [address] Gregorio@[facility] Ship Construction Teacher Oncology 09/16/18 07/25/19 Cris Aburto, [address] [address] [email or web address] Ship Construction Teacher 12/26/18 Arlin Cherry, [address] [address] Maykel@[facility] Ship Construction Teacher Oncology 07/26/19 Shun Schuster MD Rohan@[facility] Primary Oncologist Medical Oncology 04/12/20 06/21/21 Jaspal Ordoñez MD [address] [place] [address] [email or web address] Palliative Care 12/22/20 Joelle Grande MD, MSc [address] [place] [address] JOSÉ MANUEL@[facility] Surgical Oncology 03/07/21 Danuta Patel MD [address] [place] [address] Agnes@[facility] Medical Oncology 06/22/21 documented as of this encounter Additional Source Comments The information contained in this document represents components of the legal health record. It is not the complete legal health record.[facility]
--- OUTSIDE RECORDS SUMMARY | 2025-11-03 12:30 | XMS_ITS | Encounter Summary ---
Author Organization [facility] Address [address] [place] [address] Phone Care Team Providers Care Pick Up Worker Name Role Phone Chiara Diggs MD Primary Care Provider [phone] Joelle Grande MD, MSc Unavailable Oly Kraus MD, MPH Unavailable + [phone] Valerie Conti MD Unavailable [phone] Daryn Donohue MD Unavailable Savanna Banegas Unavailable Sindy Isaacs INFORMATICS PHARMACIST Unavailable [phone] Cris Aburto INFORMATICS PHARMACIST Unavailable [phone] Arlin Cherry INFORMATICS PHARMACIST Unavailable [phone] Shun Schuster MD Unavailable Portia [email or web address] Jaspal Pettit MD Unavailable Joelle Grande MD, MSc Unavailable Danuta Patel MD Unavailable [phone] Encounter Details Date Type Department Care Team (Late st Contact Info) Description 02/04/2019 Procedure Pass [facility] [address] [place] [address] Social History Tobacco Use Types Packs/Day Years [...] st Contact Info) Description 07/29/2025 Procedure Pass [facility] Imaging Department, [facility], [place] [address] [facility], Floor [address]1 [place] [address] 07/29/2025 Procedure Pass [facility] Imaging Department, [facility] [place] [address] [facility], Floor [address] [place] [address] 07/31/2026 1:40 PM EDT Appointment [facility] Imaging Department, [facility], [place] [address] [facility], Floor [address] [place] [address] Danuta Patel MD [address] [place] [address] Agnes@[facility] 08/04/2026 10:30 AM EDT Telemedicine [facility], [facility] Cancer [address], 6th [place] [address] Danuta Patel MD [address] [place] [address] Agnes@[facility] documented as of [...] documented as of this encounter Care Teams Pick Up Worker Relationship Specialty Start Date End Date Chiara Diggs MD [address] [place] [address] [address] [place] [phone] PCP - General Internal Medicine 07/25/18 Joelle Grande MD, MSc [address] [place] [address] JOSÉ MANUEL@[facility] Surgeon Surgical Oncology 08/15/18 Oly Kraus MD, MPH [address] [place] [address] Lolis@[facility] Primary Oncologist Radiation Oncology 08/15/18 Valerie Conti MD [address] [place] [address] Mariusz@[facility] Primary Oncologist Medical Oncology 08/15/18 04/11/20 Daryn Donohue MD [address] [place] [address] Referring Physician Urology 08/19/18 Savanna Banegas [address] [place] [address] NESTOR@[facility] Cleaning Validation Consultant 08/19/18 Sindy Isaacs, [address] [address] [email or web address] Mill Supervisor Oncology 09/16/18 07/25/19 Cris Aburto, [address] [address] [email or web address] Mill Supervisor 12/26/18 Arlin Cherry, [address] [address] ArlinBettyJo Ann@[facility] Mill Supervisor Oncology 07/26/19 Shun Schuster MD Rohan@[facility] Primary Oncologist Medical Oncology 04/12/20 06/21/21 Jaspal Ordoñez MD [address] [place] [address] [email or web address] Palliative Care 12/22/20 Joelle Grande MD, MSc [address] [place] [address] JOSÉ MANUEL@[facility] Surgical Oncology 03/07/21 Danuta Patel MD [address] [place] [address] Agnes@[facility] Medical Oncology 06/22/21 documented as of this encounter Additional Source Comments The information contained in this document represents components of the legal health record. It is not the complete legal health record.[facility]
--- OUTSIDE RECORDS SUMMARY | 2025-11-03 12:30 | XMS_ITS | Encounter Summary ---
Author Organization [facility] Address [address] [place] [address] Phone Care Team Providers Care Crane Manager Name Role Phone Chiara Diggs MD Primary Care Provider [phone] Joelle Grande MD, MSc Unavailable Oly Kraus MD, MPH Unavailable + [phone] Daryn Donohue MD Unavailable Savanna Banegas Unavailable Cris Aburto SAFETY PROFESSIONAL Unavailable + [phone] Arlin Cherry SAFETY PROFESSIONAL Unavailable [phone] Jaspal Ordoñez MD Unavailable Joelle Grande MD, MSc Unavailable Danuta Patel MD Unavailable [phone] Encounter Details Date Type Department Care Team (Late st Contact Info) Description 06/22/2021 Procedure Pass [facility] [address] [place] [address] Social History Tobacco Use Types Packs/Day Years [...] Contact Info) Description 07/29/2025 Procedure Pass [facility] Imaging Department, [facility], [place] [address] [facility], Floor [address]1 [place] [address] 07/29/2025 Procedure Pass [facility] Imaging Department, [facility], [place] [address] [facility], Floor [address]1 [place] [address] 07/31/2026 1:40 PM EDT Appointment [facility] Imaging Department, [facility], [place] [address] [facility], Floor [address]1 [place] [address] Danuta Patel MD [address] [place] [address] Agnes@[facility] 08/04/2026 10:30 AM EDT [facility], [address], 6th [place] [address] Danuta Patel MD [address] [place] [address] Agnes@[facility] documented as of this encounter Visit Diagnoses [...] documented as of this encounter Care Teams Crane Manager Relationship Specialty Start Date End Date Chiara iDggs MD [address] [place] [address] [address] [place] [phone] PCP - General Internal Medicine 07/25/18 Joelle Grande MD, MSc [address] [place] [address] JOSÉ MANUEL@[facility] Surgeon Surgical Oncology 08/15/18 Oly Kraus MD, MPH [address] [place] [address] Lolis@[facility] Primary Oncologist Radiation Oncology 08/15/18 Daryn Donohue MD [address] [place] [address] Referring Physician Urology 08/19/18 Savanna Banegas [address] [place] [address] NESTOR@[facility] Automotive Warranty Administrator 08/19/18 Cris Aburto, [address] [address] delvin@[facility] Learning Center Coordinator 12/26/18 Arlin Cherry, [facility] [address] [place] [address] Maykel@[facility] Learning Center Coordinator Oncology 07/26/19 Jaspal Ordoñez MD [address] [place] [address] [email or web address] Palliative Care 12/22/20 Joelle Grande MD, MSc [address] [place] [address] JOSÉ MANUEL@[facility] Surgical Oncology 03/07/21 Danuta Patel MD [address] [place] [address] Agnes@[facility] Medical Oncology 06/22/21 documented as of this encounter Additional Source Comments The information contained in this document represents components of the legal health record. It is not the complete legal health record.[facility]
--- OUTSIDE RECORDS SUMMARY | 2025-11-03 12:30 | XMS_ITS | Encounter Summary ---
Author Organization [facility] Address [address] [place] [address] Phone Care Team Providers Care Farmworker Rice Name Role Phone Chiara Diggs MD Primary Care Provider [phone] Joelle Grande MD, MSc Unavailable Oly Kraus MD, MPH Unavailable + [phone] Daryn Donohue MD Unavailable Savanna Banegas Unavailable Cris Aburto ORCHESTRA DIRECTOR Unavailable + [phone] Arlin Cherry ORCHESTRA DIRECTOR Unavailable +[phone] Jaspal Ordoñez MD Unavailable Joelle Grande MD, MSc Unavailable Danuta Patel MD Unavailable [phone] Encounter Details Date Type Department Care Team (Late st Contact Info) Description 06/22/2021 [facility] [address] [place] [address] Social History Tobacco Use Types Packs/Day Years [...] st Contact Info) Description 07/29/2025 Procedure Pass [facility] Imaging Department, [facility], [place] [address] [facility], Floor L1 [place] [address] 07/29/2025 Procedure Pass [facility] Imaging Department, [facility], [place] [address] [facility], Floor [address]1 [place] [address] 07/31/2026 1:40 PM EDT Appointment [facility] Imaging Department, [facility], [place] [address] [facility], Floor [address]1 [place] [address] Danuta Patel MD [address] [place] [address] Agnes@[facility] 08/04/2026 10:30 AM EDT [facility], [address], 6th [place] [address] Danuta Patel MD [address] [place] [address] Agnes@[facility] documented as of this encounter Visit Diagnoses Not on filedocumented in this encounter Additional Health Concerns 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 02/28/2019 12/20/2022 1:[address] CoV-Presumed Comment:12/12: Symptom onset- fatigue, ST, cough, SOB 12/13: positive PCR outside lab (needs to be uploaded to [facility])- Yohana Noble RN 12/12/2021 12/13/2021 01/01/2022 1:[address] Assessment Noted Time PHQ-2 Depression Total Score: 0 11/12/19 1:45 PM EST documented as of this encounter Care Teams Farmworker Rice Relationship Specialty Start Date End Date Chiara Diggs MD [address] [place] [address] [address] [place] [phone] PCP - General Internal Medicine 07/25/18 Joelle Grande MD, MSc [address] [place] [address] JOSÉ MANUEL@[facility] Surgeon Surgical Oncology 08/15/18 Oly Kraus MD, MPH [address] [place] [address] Lolis@[email or web address] Primary Oncologist Radiation Oncology 08/15/18 Daryn Donohue MD [address] [place] [address] Referring Physician Urology 08/19/18 Savanna Banegas [address] [place] [address] NESTOR@[facility] Ad Clerk 08/19/18 Cris Aburto, [address] [address] [email or web address] Hospital Carrier 12/26/18 Arlin Cherry, [facility] [address] [place] [address] Maykel@[facility] Hospital Carrier Oncology 07/26/19 Jaspal Ordoñez MD [address] [place] [address] [email or web address] Palliative Care 12/22/20 Joelle Grande MD, MSc [address] [place] [address] JOSÉ MANUEL@[email or web address] Surgical Oncology 03/07/21 Danuta Patel MD [address] [place] [address] [email or web address] Medical Oncology 06/22/21 documented as of this encounter Additional Source Comments The information contained in this document represents components of the legal health record. It is not the complete legal health record.[facility]
--- OUTSIDE RECORDS SUMMARY | 2025-11-03 12:30 | XMS_ITS | Encounter Summary ---
Author Organization [facility] Address [address] [place] [address] Phone Care Team Providers Care Foreign Exchange Trader Name Role Phone Chiara Diggs MD Primary Care Provider [phone] Joelle Grande MD, MSc Unavailable Oly Kraus MD, MPH Unavailable + [phone] Daryn Donohue MD Unavailable Savanna Banegas Unavailable Cris Aburto MARKET BASKET MAKER Unavailable + [phone] Arlin Cherry MARKET BASKET MAKER Unavailable +[phone] Jaspal Ordoñez MD Unavailable Joelle Grande MD, MSc Unavailable Danuta Patel MD Unavailable [phone] Encounter Details Date Type Department Care Team (Late st Contact Info) Description 10/17/2023 Procedure Pass [facility], Ct Scan - [address] [address] Social History Tobacco Use Types Packs/Day Years [...] Info) Description 07/29/2025 Procedure Pass [facility] Imaging Department, [facility], [place] [address] [facility], Floor [address]1 [place] [address] 07/29/2025 Procedure Pass [facility] Imaging Department, [facility], [address], [address] [place] [address] 07/31/2026 1:40 PM EDT Appointment [facility] Imaging Department, [facility], [place] [address] [facility], Floor [address]1 [place] [address] Danuta Patel MD [address] [place] [address] Agnes@[facility] 08/04/2026 10:30 AM EDT [facility], [address], 6th [place] [address] Danuta Patel MD [address] [place] [address] Agnes@[facility] documented as of this encounter Visit Diagnoses Not on filedocumented in this encounter Additional Health Concerns Assessment Noted Time PHQ-2 Depression Total Score: 0 11/12/19 20 1:45 PM EST documented as of this encounter Care Teams Foreign Exchange Trader Relationship Specialty Start Date End Date Chiara Diggs MD [address] [place] [address] [place] [phone] PCP - General Internal Medicine 07/25/18 Joelle Grande MD, MSc [address] [place] [address] JOSÉ MANUEL@[facility] Surgeon Surgical Oncology 08/15/18 Oly Kraus MD, MPH [address] [place] [address] Lolis@[facility] Primary Oncologist Radiation Oncology 08/15/18 Daryn Donohue MD [address] [place] [address] Referring Physician Urology 08/19/18 Savanna Banegas [address] [place] [address] NESTOR@[facility] Weed Inspector 08/19/18 Cris Aburto, [facility] [address] [place] [address] [email or web address] Distribution Manager 12/26/18 Arlin Cherry, [facility] 35 [place] [address] Maykel@[facility] Distribution Manager Oncology 07/26/19 Jaspal Ordoñez MD [address] [place] [address] Palliative Care 12/22/20 Joelle Grande MD, MSc [address] [place] [address] JOSÉ MANUEL@[facility] Surgical Oncology 03/07/21 Danuta Patel MD [address] [place] [address] Agnes@[email or web address] Medical Oncology 06/22/21 documented as of this encounter Additional Source Comments The information contained in this document represents components of the legal health record. It is not the complete legal health record.[facility]
--- OUTSIDE RECORDS SUMMARY | 2025-11-03 12:30 | XMS_ITS | Encounter Summary ---
Author Organization [facility] Address [address] [place] [address] Phone Care Team Providers Care Commercial Collections Driver Name Role Phone Chiara Diggs MD Primary Care Provider [phone] Joelle Grande MD, MSc Unavailable Oly Kraus MD, MPH Unavailable + [phone] Daryn Donohue MD Unavailable Savanna Banegas Unavailable Cris Aburto MACHINE RUG CLEANER Unavailable + [phone] Arlin Cherry MACHINE RUG CLEANER Unavailable [phone] Jaspal Ordoñez MD Unavailable Joelle Grande MD, MSc Unavailable Danuta Patel MD Unavailable [phone] Encounter Details Date Type Department Care Team (Late st Contact Info) Description 04/25/2023 Procedure Pass [facility] [address] [place] [address] Social History Tobacco Use Types Packs/Day Years [...] Procedure Pass [facility] Imaging Department, [facility], [place] [address] [facility], Floor [address]1 [place] [address] 07/29/2025 Procedure Pass [facility] Imaging Department, [facility], [place] [address] [facility], Floor [address]1 [place] [address] 07/31/2026 1:40 PM EDT Appointment [facility] Imaging Department, [facility], [place] [address] [facility], [address] [place] [address] Danuta Patel MD [address] [place] [address] Agnes@[facility] 08/04/2026 10:30 AM EDT [facility], [address], 6th [place] [address] Danuta Patel MD [address] [place] [address] Agnes@[facility] documented as of this encounter Visit Diagnoses Not on filedocumented in this encounter Additional Health Concerns Assessment Noted Time PHQ-2 Depression Total Score: 0 11/12/19 20 1:45 PM EST documented as of this encounter Care Teams Commercial Collections Driver Relationship Specialty Start Date End Date Chiara Diggs MD [address] [place] [address] [place] [phone] PCP - General Internal Medicine 07/25/18 Joelle Grande MD, MSc [address] [place] [address] JOSÉ MANUEL@[facility] Surgeon Surgical Oncology 08/15/18 Oly Kraus MD, MPH [address] [place] [address] Lolis@[facility] Primary Oncologist Radiation Oncology 08/15/18 Daryn Donohue MD [address] [place] [address] Referring Physician Urology 08/19/18 Savanna Banegas [address] [place] [address] NESTOR@[facility] Brush Sander 08/19/18 Cris Aburto, [address] [address] [email or web address] Milk Sampler 12/26/18 Arlin Cherry, [address] [address] Maykel@[facility] Milk Sampler Oncology 07/26/19 Jaspal Ordoñez MD [address] [place] [address] [email or web address] Palliative Care 12/22/20 Joelle Grande MD, MSc [address] [place] [address] JOSÉ MANEUL@[email or web address] Surgical Oncology 03/07/21 Danuta Patel MD [address] [place] [address] Agnes@[facility] Medical Oncology 06/22/21 documented as of this encounter Additional Source Comments The information contained in this document represents components of the legal health record. It is not the complete legal health record.[facility]
--- OUTSIDE RECORDS SUMMARY | 2025-11-03 12:30 | XMS_ITS | Encounter Summary ---
Author Organization [facility] Address [address] [place] [address] Phone Care Team Providers Care Steward/Stewardess Lounge Name Role Phone Chiara Diggs MD Primary Care Provider [phone] Joelle Grande MD, MSc Unavailable Oly Kraus MD, MPH Unavailable + [phone] Valerie Conti MD Unavailable [phone] Daryn Donohue MD Unavailable [phone] Savanna Banegas Unavailable Sindy Isaacs SIDE SAWYER Unavailable [phone] Cris Aburto SIDE SAWYER Unavailable +[phone] Arlin Cherry SIDE SAWYER Unavailable [phone] Shun Schuster MD Unavailable Portia [email or web address] Jaspal Pettit MD Unavailable Joelle Grande MD, MSc Unavailable Danuta Patel MD Unavailable [phone] Encounter Details Date Type Department Care Team (Late st Contact Info) Description 02/20/2019 Procedure Pass [facility] Endoscopy Department [address] [place] [address] Social History Tobacco Use Types Packs/Day Years [...] Encounters Date Type Department Care Team ([facility] st Contact Info) Description 07/29/2025 Procedure Pass [facility] Imaging Department, [facility], [place] [address] [facility], Floor [address]1 [place] [address] 07/29/2025 Procedure Pass [facility] Imaging Department, [facility], [place] [address] [facility], Floor [address]1 [place] [address] 07/31/2026 1:40 PM EDT Appointment [facility] Imaging Department, [facility], [place] [address] [facility], Floor [address]1 [place] [address] Danuta Patel MD [address] [place] [address] Agnes@[facility] 08/04/2026 10:30 AM EDT [facility], [address], 6th [place] [address] Danuta Patel MD [address] [place] [address] Agnes@[facility] documented as of this [...] documented as of this encounter Care Teams Steward/Stewardess Lounge Relationship Specialty Start Date End Date Dontae, Chiara Crandall MD [address] [place] [address] Drive [address] [place] [phone] PCP - General Internal Medicine 07/25/18 Joelle Grande MD, MSc [address] [place] [address] JOSÉ MANUEL@[facility] Surgeon Surgical Oncology 08/15/18 lOy Kraus MD, MPH [address] [place] [address] Lolis@[facility] Primary Oncologist Radiation Oncology 08/15/18 Valerie Conti MD [address] [place] [address] [email or web address] Primary Oncologist Medical Oncology 08/15/18 04/11/20 Daryn Donohue MD [address] [place] [address] Referring Physician Urology 08/19/18 Savanna Banegas [address] [place] [address] NESTOR@[facility] Weigh And Charge Worker 08/19/18 Sindy Isaacs, [address] [address] Gregorio@[facility] Pull Over Machine Operator Oncology 09/16/18 07/25/19 Cris Aburto, [address] [address] [email or web address] Pull Over Machine Operator 12/26/18 Arlin Cherry, [address] [address] Maykel@[facility] Pull Over Machine Operator Oncology 07/26/19 Shun Schuster MD Rohan@[email or web address] Primary Oncologist Medical Oncology 04/12/20 06/21/21 Jaspal Ordoñez MD [address] [place] [address] [email or web address] Palliative Care 12/22/20 Joelle Grande MD, MSc [address] [place] [address] JOSÉ MANUEL@[facility] Surgical Oncology 03/07/21 Danuta Patel MD [address] [place] [address] Agnes@[facility] Medical Oncology 06/22/21 documented as of this encounter Additional Source Comments The information contained in this document represents components of the legal health record. It is not the complete legal health record.[facility]
--- OUTSIDE RECORDS SUMMARY | 2025-11-03 12:30 | XMS_ITS | Encounter Summary ---
Author Organization [facility] Address [address] [place] [address] Phone Care Team Providers Care Compressor Engineer Name Role Phone Chiara Diggs MD Primary Care Provider [phone] Joelle Grande MD, MSc Unavailable Oly Kraus MD, MPH Unavailable Daryn Donohue MD Unavailable [phone] Savanna Banegas Unavailable Cris Aburto JERSEY KNITTER Unavailable + [phone] Arlin Cherry JERSEY KNITTER Unavailable [phone] Jaspal Ordoñez MD Unavailable Joelle Grande MD, MSc Unavailable Danuta Patel MD Unavailable [phone] Encounter Details Date Type Department Care Team (Late st Contact Info) Description 09/27/2022 Procedure Pass [facility], [facility] [place], [place] [address] [facility], Floor [address]1 [place] [address] Social History Tobacco Use Types Packs/Day Years [...] Contact Info) Description 07/29/2025 Procedure Pass [facility] Imaging Department, [facility], [place] [address] [facility], Floor L1 [place] [address] 07/29/2025 Procedure Pass [facility] Imaging Department, [facility], [place] [address] [facility], Floor [address]1 [place] [address] 07/31/2026 1:40 PM EDT Appointment [facility] Imaging Department, [facility], [place] [address] [facility], Floor [address]1 [place] [address] Danuta Patel MD [address] [place] [address] Agnes@[facility] 08/04/2026 10:30 AM EDT Tele[facility], [address], 6th [place] [address] Danuta Patel MD [address] [place] [address] Agnes@[facility] documented as of this encounter Visit Diagnoses Not on filedocumented in this encounter Additional Health Concerns 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 02/28/2019 12/20/2022 1:[address] Assessment Noted Time PHQ-2 Depression Total Score: 0 11/12/19 1:45 PM EST documented as of this encounter Care Teams Compressor Engineer Relationship Specialty Start Date End Date Dontae Chiara Crandall MD [address] [place] [address] [address] [place] [phone] PCP - General Internal Medicine 07/25/18 Joelle Grande MD, MSc [address] [place] [address] JOSÉ MANUEL@[facility] Surgeon Surgical Oncology 08/15/18 Oly Kraus MD, MPH [address] [place] [address] Lolis@[facility] Primary Oncologist Radiation Oncology 08/15/18 Daryn Donohue MD [address] [place] [address] Referring Physician Urology 08/19/18 Savanna Banegas [address] [place] [address] NESTOR@[facility] Dice Table Person 08/19/18 Cris Aburto, [address] [address] [email or web address] Salesperson Fashion Accessories 12/26/18 Arlin Cherry, [address] [address] Maykel@[facility] Salesperson Fashion Accessories Oncology 07/26/19 Jaspal Ordoñez MD [address] [place] [address] [email or web address] Palliative Care 12/22/20 Joelle Grande MD, MSc [address] [place] [address] JOSÉ MANUEL@[email or web address] Surgical Oncology 03/07/21 Danuta Patel MD [address] [place] [address] Agnes@[email or web address] Medical Oncology 06/22/21 documented as of this encounter Additional Source Comments The information contained in this document represents components of the legal health record. It is not the complete legal health record.[facility]
--- OUTSIDE RECORDS SUMMARY | 2025-11-03 12:30 | XMS_ITS | Encounter Summary ---
Author Organization [facility] Address [address] [place] [address] Phone Care Team Providers Care Quahogger Name Role Phone Chiara Diggs MD Primary Care Provider [phone] Joelle Grande MD, MSc Unavailable Oly Kraus MD, MPH Unavailable + [phone] Daryn Donohue MD Unavailable [phone] Savanna Banegas Unavailable Cris Aburto ADMINISTRATIVE LAW JUDGE Unavailable [phone] Arlin Cherry ADMINISTRATIVE LAW JUDGE Unavailable [phone] Shun Schuster MD Unavailable Portia [email or web address] Jaspal Pettit MD Unavailable Joelle Grande MD, MSc Unavailable Danuta Patel MD Unavailable [phone] Encounter Details Date Type Department Care Team (Late st Contact Info) Description 12/22/2020 Procedure Pass [facility], [facility], [place] [address] [facility], Floor [address]1 [place] [address] Social History Tobacco Use Types Packs/Day Years [...] st Contact Info) Description 07/29/2025 Procedure Pass [facility] Imaging Department, [facility], [place] [address] [facility], Floor L1 [place] [address] 07/29/2025 Procedure Pass [facility] Imaging Department, [facility], [place] [address] [facility], Floor [address]1 [place] [address] 07/31/2026 1:40 PM EDT Appointment [facility] Imaging Department, [facility], [place] [address] [facility], Floor [address] [place] [address] Danuta Patel MD [address] [place] [address] Agnes@[facility] 08/04/2026 10:30 AM EDT [facility], [address], 6th [place] [address] Danuta Patel MD [address] [place] [address] Agnes@[facility] documented as of this encounter [...] documented as of this encounter Care Teams Quahogger Relationship Specialty Start Date End Date Chiara Diggs MD [address] [place] [address] [place] [phone] PCP - General Internal Medicine 07/25/18 Joelle Grande MD, MSc [address] [place] [address] JOSÉ MANUEL@[facility] Surgeon Surgical Oncology 08/15/18 Oly Kraus MD, MPH [address] [place] [address] Lolis@[facility] Primary Oncologist Radiation Oncology 08/15/18 Daryn Donohue MD [address] [place] [address] Referring Physician Urology 08/19/18 Savanna Banegas [address] [place] [address] NESTOR@[facility] Production Machinist 08/19/18 Cris Aburto, [address] [address] [email or web address] Material Mover 12/26/18 Arlin Cherry, [facility] [address] [place] [address] Maykel@[facility] Material Mover Oncology 07/26/19 Shun Schuster MD [email or web address] [facility] Primary Oncologist Medical Oncology 04/12/20 06/21/21 Jaspal Ordoñez MD [address] [place] [address] [email or web address] Palliative Care 12/22/20 Joelle Grande MD, MSc [address] [place] [address] JOSÉ MANUEL@[facility] Surgical Oncology 03/07/21 Danuta Patel MD [address] [place] [address] Agnes@[email or web address] Medical Oncology 06/22/21 documented as of this encounter Additional Source Comments The information contained in this document represents components of the legal health record. It is not the complete legal health record.[facility]
--- OUTSIDE RECORDS SUMMARY | 2025-11-03 12:30 | XMS_ITS | Encounter Summary ---
Author Organization [facility] Address [address] [place] [address] Phone Care Team Providers Care Social And Political Studies Professor Name Role Phone Chiara Diggs MD Primary Care Provider Joelle Grande MD, MSc Unavailable Oly Kraus MD, MPH Unavailable Daryn Donohue MD Unavailable Savanna Banegas Unavailable Cris Aburto SLOT MACHINE MECHANIC Unavailable + [phone] Arlin Cherry SLOT MACHINE MECHANIC Unavailable [phone] Jaspal Ordoñez MD Unavailable Joelle Grande MD, MSc Unavailable Danuta Patel MD Unavailable [phone] Encounter Details Date Type Department Care Team (Late st Contact Info) Description 09/27/2022 [facility], [facility] [place], [place] [address] [facility], Floor [address]1 [place] [address] Social History Tobacco Use Types Packs/Day Years [...] Pass [facility] Imaging [facility], [facility], [place] [address] [facility], Floor [address]1 [place] [address] 07/29/2025 Procedure Pass [facility] Imaging Department, [facility] [place] [address] [facility], Floor [address]1 [place] [address] 07/31/2026 1:40 PM EDT Appointment [facility] Imaging Department, [facility], [place] [address] [facility], Floor [address]1 [place] [address] Danuta Patel MD [address] [place] [address] [email or web address]@[email or web address] 08/04/2026 10:30 AM EDT [facility], [address], 6th [place] [address] Danuta Patel MD [address] [place] [address] Agnes@[email or web address] documented as of this encounter Visit Diagnoses Not on filedocumented in this encounter Additional Health Concerns 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 02/28/2019 12/20/2022 1:[address] Assessment Noted Time PHQ-2 Depression Total Score: 0 11/12/19 1:45 PM EST documented as of this encounter Care Teams Social And Political Studies Professor Relationship Specialty Start Date End Date Dontae Chiara Crandall MD [address] [place] [address] Drive [address] [place] [phone] PCP - General Internal Medicine 07/25/18 Joelle Grande MD, MSc [address] [place] [address] JOSÉ MANUEL@[email or web address] Surgeon Surgical Oncology 08/15/18 Oly Kraus MD, MPH [address] [place] [address] Lolis@[facility] Primary Oncologist Radiation Oncology 08/15/18 Daryn Donohue MD [address] [place] [address] Referring Physician Urology 08/19/18 Savanna Banegas [address] [place] [address] NESTOR@[facility] Manager Pricing 08/19/18 Cris Aburto, [address] [address] [email or web address] Mechanical Maintenance Worker 12/26/18 Arlin Cherry, [address] [address] Maykel@[facility] Mechanical Maintenance Worker Oncology 07/26/19 Jaspal Ordoñez MD [address] [place] [address] [email or web address] Palliative Care 12/22/20 Joelle Grande MD, MSc [address] [place] [address] JOSÉ MANUEL@[email or web address] Surgical Oncology 03/07/21 Danuta Patel MD [address] [place] [address] [email or web address] Medical Oncology 06/22/21 documented as of this encounter Additional Source Comments The information contained in this document represents components of the legal health record. It is not the complete legal health record.[facility]
--- OUTSIDE RECORDS SUMMARY | 2025-11-03 12:30 | XMS_ITS | Encounter Summary ---
Author Organization [facility] Address [address] [place] [address] Phone Care Team Providers Care Slitter And Rewinder Name Role Phone Chiara Diggs MD Primary Care Provider [phone] Joelle Grande MD, MSc Unavailable Oly Kraus MD, MPH Unavailable + [phone] Daryn Donohue MD Unavailable [phone] Savanna Banegas Unavailable Cris Aburto BOILER CONTROL TECHNICIAN Unavailable [phone] Arlin Cherry BOILER CONTROL TECHNICIAN Unavailable [phone] Shun Schuster MD Unavailable Portia [email or web address] Jaspal Pettit MD Unavailable Joelle Grande MD, MSc Unavailable Danuta Patel MD Unavailable [phone] Encounter Details Date Type Department Care Team (Late st Contact Info) Description 05/19/2020 Procedure Pass [facility], [facility] [place], [place] [address] [facility], Floor [address] [place] [address] Social History Tobacco Use Types Packs/Day Years [...] [facility], [facility], [place] [address] [facility], Floor [address] [place] [address] 07/29/2025 Procedure Pass [facility] Imaging Department, [facility], [place] [address] [facility], Floor [address] [place] [address] 07/31/2026 1:40 PM EDT Appointment [facility] Imaging Department, [facility], [place] [address] [facility], [address] [place] [address] Danuta Patel MD [address] [place] [address] Agnes@[email or web address] 08/04/2026 10:30 AM EDT [facility], [address], 6th [place] [address] Danuta Patel MD [address] [place] [phone] Agnes@[email or web address] documented as of this [...] documented as of this encounter Care Teams Slitter And Rewinder Relationship Specialty Start Date End Date Chiara Diggs MD [address] [place] [address] Drive [address] [place] [phone] PCP - General Internal Medicine 07/25/18 Joelle Grande MD, MSc [address] [place] [address] JOSÉ MANUEL@[facility] Surgeon Surgical Oncology 08/15/18 Oly Kraus MD, MPH [address] [place] [phone] [email or web address] Primary Oncologist Radiation Oncology 08/15/18 Daryn Donohue MD [address] [place] [address] Referring Physician Urology 08/19/18 Savanna Banegas [address] [place] [address] NESTOR@[email or web address] Coin Machine Operator 08/19/18 Cris Aburto [address] [address] [email or web address] Tube Making Machine Operator 12/26/18 Arlin Cherry, [facility] [address] [place] [address] Maykel@[facility] Tube Making Machine Operator Oncology 07/26/19 Shun Schuster MD Rohan@[email or web address] Primary Oncologist Medical Oncology 04/12/20 06/21/21 Jaspal Ordoñez MD [address] [place] [address] [email or web address] Palliative Care 12/22/20 Joelle Grande MD, MSc [address] [place] [address] JOSÉ MANUEL@[email or web address] Surgical Oncology 03/07/21 Danuta Patel MD [address] [place] [address] Agnes@[email or web address] Medical Oncology 06/22/21 documented as of this encounter Additional Source Comments The information contained in this document represents components of the legal health record. It is not the complete legal health record.[facility]
--- OUTSIDE RECORDS SUMMARY | 2025-11-03 12:30 | XMS_ITS | Encounter Summary ---
Author Organization [facility] Address [address] [place] [address] Phone Care Team Providers Care Systems Integration Engineer Name Role Phone Chiara Diggs MD Primary Care Provider [phone] Joelle Grande MD, MSc Unavailable Oly Kraus MD, MPH Unavailable + [phone] Daryn Donohue MD Unavailable Savanna Banegas Unavailable Cris Aburto HAND FUR CLEANER Unavailable + [phone] Arlin Cherry HAND FUR CLEANER Unavailable [phone] Jaspal Ordoñez MD Unavailable Joelle Grande MD, MSc Unavailable Danuta Patel MD Unavailable [phone] Encounter Details Date Type Department Care Team (Late st Contact Info) Description 04/10/2023 Procedure Pass [facility] Admitting Dept Virtual Department [address] [place] [address] Social History Tobacco Use Types [...] Info) Description 07/29/2025 Procedure Pass [facility] Imaging Department, [facility], [place] [address] [facility], Floor [address]1 [place] [address] 07/29/2025 Procedure Pass [facility] Imaging Department, [facility], [address], Floor [address]1 [place] [address] 07/31/2026 1:40 PM EDT Appointment [facility] Imaging Department, [facility], [place] [address] [facility], Floor [address]1 [place] [address] Danuta Patel MD [address] [place] [address] Agnes@[email or web address] 08/04/2026 10:30 AM EDT [facility], [address], 6th [place] [address] Danuta Patel MD [address] [place] [address] [email or web address]@[email or web address] documented as of this encounter Visit Diagnoses Not on filedocumented in this encounter Additional Health Concerns Assessment Noted Time PHQ-2 Depression Total Score: 0 11/12/19 20 1:45 PM EST documented as of this encounter Care Teams Systems Integration Engineer Relationship Specialty Start Date End Date Chiara Diggs MD [address] [place] [address] [place] [phone] PCP - General Internal Medicine 07/25/18 Joelle Grande MD, MSc [address] [place] [address] JOSÉ MANUEL@[facility] Surgeon Surgical Oncology 08/15/18 Oly Kraus MD, MPH [address] [place] [address] [email or web address] Primary Oncologist Radiation Oncology 08/15/18 Daryn Donohue MD [address] [place] [address] Referring Physician Urology 08/19/18 Savanna Banegas [address] [place] [address] NESTOR@[facility] Sld Educational Aide 08/19/18 Cris Aburto, [facility] [address] [place] [address] [email or web address] Irrigation Tax Assessor Collector 12/26/18 Arlin Cherry, [facility] [address] [place] [address] Maykel@[email or web address] Irrigation Tax Assessor Collector Oncology 07/26/19 Jaspal Ordoñez MD [address] [place] [address] [email or web address] Palliative Care 12/22/20 Joelle Grande MD, MSc [address] [place] [address] JOSÉ MANUEL@[email or web address] Surgical Oncology 03/07/21 Danuta Patel MD [address] [place] [address] [email or web address] Medical Oncology 06/22/21 documented as of this encounter Additional Source Comments The information contained in this document represents components of the legal health record. It is not the complete legal health record.[facility]
--- OUTSIDE RECORDS SUMMARY | 2025-11-03 12:30 | XMS_ITS | Encounter Summary ---
Author Organization [facility] Address [address] [place] [address] Phone Care Team Providers Care Health Type Technician Name Role Phone Chiara Diggs MD Primary Care Provider [phone] Joelle Grande MD, MSc Unavailable Oly Kraus MD, MPH Unavailable + [phone] Daryn Donohue MD Unavailable [phone] Savanna Banegas Unavailable Cris Aburto SHEEP FARMER Unavailable [phone] Arlin Cherry SHEEP FARMER Unavailable [phone] Shun Schuster MD Unavailable Portia [email or web address] Jaspal Pettit MD Unavailable Joelle Grande MD, MSc Unavailable Danuta Patel MD Unavailable [phone] Encounter Details Date Type Department Care Team (Late st Contact Info) Description 08/25/2020 Procedure Pass [facility] [address] [place] [address] Social History Tobacco Use Types Packs/Day Years [...] Contact Info) Description 07/29/2025 Procedure Pass [facility] Imaging Department, [facility], [place] [address] [facility], Floor L1 [place] [address] 07/29/2025 Procedure Pass [facility] Imaging Department, [facility], [place] [address] [facility], Floor L1 [place] [address] 07/31/2026 1:40 PM EDT Appointment [facility] Imaging Department, [facility], [place] [address] [facility], Floor L1 [place] [address] Danuta Patel MD [address] [place] [address] Agnse@[facility] 08/04/2026 10:30 AM EDT [facility], [address], 6th [place] [address] Danuta Patel MD [address] [place] [address] Agnes@[facility] documented as of this encounter Visit Diagnoses [...] as of this encounter Care Teams Health Type Technician Relationship Specialty Start Date End Date Chiara iDggs MD [address] [place] [address] [place] [phone] PCP - General Internal Medicine 07/25/18 Joelle Grande MD, MSc [address] [place] [address] JOSÉ MANUEL@[email or web address] Surgeon Surgical Oncology 08/15/18 Oly Kraus MD, MPH [address] [place] [address] Lolis@[email or web address] Primary Oncologist Radiation Oncology 08/15/18 Daryn Donohue MD [address] [place] [address] Referring Physician Urology 08/19/18 Savanna Banegas [address] [place] [address] NESTOR@[facility] Rug Dry Room Attendant 08/19/18 Cris Aburto, [facility] [address] [place] [address] [email or web address] Customer Security Clerk 12/26/18 Arlin Cherry, [facility] [address] [place] [address] Maykel@[facility] Customer Security Clerk Oncology 07/26/19 Shun Schuster MD Rohan@[email or web address] Primary Oncologist Medical Oncology 04/12/20 06/21/21 Jaspal Ordoñez MD [address] [place] [address] [email or web address] Palliative Care 12/22/20 Joelle Grande MD, MSc [address] [place] [address] JOSÉ MANUEL@[email or web address] Surgical Oncology 03/07/21 Danuta Patel MD [address] [place] [address] [email or web address] Medical Oncology 06/22/21 documented as of this encounter Additional Source Comments The information contained in this document represents components of the legal health record. It is not the complete legal health record.[facility]
--- OUTSIDE RECORDS SUMMARY | 2025-11-03 12:30 | XMS_ITS | Clinical Summary ---
Author Organization [facility] Address [address] [place] [address] Phone Care Team Providers Care Rubber Roller Grinder Name Role Phone Chiara Diggs MD Primary Care Provider [phone] Joelle Grande MD, MSc Unavailable Oly Kraus MD, MPH Unavailable +- [phone] Daryn Donohue MD Unavailable Savanna Banegas Unavailable Cris Aburto MEETING COORDINATOR Unavailable [phone] Arlin Cherry MEETING COORDINATOR Unavailable [phone] Jaspal Ordoñez MD Unavailable Joelle Grande MD, MSc Unavailable Danuta Patel MD Unavailable [phone] Allergies Active Allergy Reactions Criticality Noted Date [...] PalliativeCa re-partial fill ok 56 tablet 5 10/05/20 25 Discontinu ed(Reorder ) HYDROcodone-brady taminophen (NORCO) 5-325 mg per tablet Take 1 tab q 4-6 hours prn pain, nte 4 tabs/day. PalliativeCa re-partial fill ok 56 tablet 5 10/23/20 25 Discontinu ed(Reorder ) Active Problems Patient [...] EGD showed esophagitis, acquired and extrinsic stenosis. [place] (obtained d/t BRBPR) only w/ friable tissue [...] - Upon discharge please make appointment with [facility] Palliative Care clinic (known to [facility]) for further pain management, please call [phone] or requeste via the [employer] Work queue ([facility] Palliative Care) - [employer] In Basket messages can be sent to the Palliative Scheduling Pool - Patient lives far away from [facility], would benefit from making this apt on [...] far. Recommendations: - continue Dilaudid 2-4mg po [id number] PRN pain. We continue to encourage her [...] is symptomatically ok. - will f/u with [facility] Surgical Oncology. 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 Refill [facility] Hematology Oncology Clinic at [address] [address] Adrianna Le, lineman service or work dispatcher Refill 09/23/2025 Refill [facility] Hematology Oncology Clinic at [address] [address] Adrianna Le, lineman service or work dispatcher Refill 09/08/2025 Refill [facility] Hematology Oncology Clinic at [address] [address] Adrianna Le, lineman service or work dispatcher Refill from Last 3 Months Family History Medical [...] st Contact Info) Description 07/29/2025 Procedure Pass [facility], [facility], [place] [address] [facility], Floor L1 [place] [address] 07/29/2025 Procedure Pass [facility] Imaging Department, [facility] [place] [address] [facility], Floor [address]1 [place] [address] 07/31/2026 1:40 PM EDT Appointment [facility] Imaging Department, [facility], [place] [address] [facility], Floor [address]1 [place] [address] Danuta Patel MD [address] [place] [address] Agnes@[email or web address] 08/04/2026 10:30 AM EDT [facility], [address], 6th [place] [address] Danuta Patel MD [address] [place] [address] Agnes@[email or web address] Health Maintenance Due Date Last Done Comments [...] STATUS SCREENING (Once After 26 Yrs) Completed 10/13/2025 HEPATITIS A VACCINES Aged Out No long [...] HEMOGLOBIN A1C 5.6 4.2 - 5.8 % [facility] CALC MEAN BLD GLUC 114 mg/dL [facility] Comment: There is no established [...] EDT us Mackenzie Lamas MD LAB BLOOD BKR ORDERABLES Final Result [facility] [address] [place] [phone] from Last 3 Months or Most Recently Relevant to Health Maintenance Insurance MEDICARE PART A & B [facility] MEDICARE PART A & B [facility] MEDICARE PART A & B MEDICARE PART A & B [facility] MEDICARE PART A & [place] [address] [place] [address] MEDICARE PART A & B [facility] MEDICARE PART A & B [facility] [facility] MEDICARE PART A & B [employer] [facility] MEDICARE PART A & B [facility] Advance Directives For more information, please contact: [phone] (9AM - 5PM [facility], Sunday-Sunday) Documents on File Type Date Recorded Patient Epic Ambulatory Analyst Expl anation Healthcare Proxy 11/26/2018 * Full [...] on File Name Relationship Healthcare Agent Kemi Patel Spouse .Primary Health Care Agent (Proxy form on file) Care Teams Rubber Roller Grinder Relationship Specialty Start Date End Date Chiara Diggs MD [address] [place] [address] [address] [place] [phone] PCP - General Internal Medicine 07/25/18 Joelle Grande MD, MSc [address] [place] [address] JOSÉ MANUEL@[facility] Surgeon Surgical Oncology 08/15/18 Oly Kraus MD, MPH [address] [place] [address] Lolis@[email or web address] Primary Oncologist Radiation Oncology 08/15/18 Daryn Donohue MD [address] [place] [address] Referring Physician Urology 08/19/18 Savanna Banegas [address] [place] [address] NESTOR@[facility] Manager Search Engine 08/19/18 Cris Aburto, [address] [address] [email or web address] 3Rd Mate 12/26/18 Arlin Cherry, [address] [address] Maykel@[email or web address] 3Rd Mate Oncology 07/26/19 Jaspal Ordoñez MD [address] [place] [address] [email or web address] Palliative Care 12/22/20 Joelle Grande MD, MSc [address] [place] [address] JOSÉ MANUEL@[email or web address] Surgical Oncology 03/07/21 Danuta Patel MD [address] [place] [address] [email or web address] Medical Oncology 06/22/21 Additional Source Comments The information contained in this document represents components of the legal health record. It is not the complete legal health record.[facility]
--- OUTSIDE RECORDS SUMMARY | 2025-11-03 12:30 | XMS_ITS | Encounter Summary ---
Author Organization [facility] Address [address] [place] [address] Phone Care Team Providers Care Sales Property Manager Name Role Phone Chiara Diggs MD Primary Care Provider [phone] Joelle Grande MD, MSc Unavailable Oly Kraus MD, MPH Unavailable + [phone] Daryn Donohue MD Unavailable Savanna Banegas Unavailable Cris Aburto PHYSICIST ASTROPHYSICS Unavailable +[phone] Arlin Cherry PHYSICIST ASTROPHYSICS Unavailable [phone] Shun Schuster MD Unavailable Portia [email or web address] Jaspal Pettit MD Unavailable oJelle Grande MD, MSc Unavailable Danuta Patel MD Unavailable [phone] Encounter Details Date Type Department Care Team (Late st Contact Info) Description 08/25/2020 [facility] Pass [facility] [address] [place] [address] Social History Tobacco Use Types Packs/Day Years [...] [facility] Imaging Department, [facility], [place] [address] [facility], [address]1 [place] [address] 07/29/2025 Procedure Pass [facility] Imaging Department, [facility] [place] [address] [facility], Floor [address] [place] [address] 07/31/2026 1:40 PM EDT Appointment [facility] Imaging Department, [facility], [place] [address] [facility], [place] [address] [place] [address] Danuta Patel MD [address] [place] [address] Agnes@[facility] 08/04/2026 10:30 AM EDT [facility], [address], 6th [place] [address] Danuta Patel MD [address] [place] [address] Agnes@[facility] documented as of this [...] documented as of this encounter Care Teams Sales Property Manager Relationship Specialty Start Date End Date Chiara Diggs MD [address] [place] [address] [place] [phone] PCP - General Internal Medicine 07/25/18 Joelle Grande MD, MSc [address] [place] [address] JOSÉ MANUEL@[facility] Surgeon Surgical Oncology 08/15/18 Oly Kraus MD, MPH [address] [place] [address] Lolis@[email or web address] Primary Oncologist Radiation Oncology 08/15/18 Daryn Donohue MD [address] [place] [address] Referring Physician Urology 08/19/18 Savanna Banegas [address] [place] [address] NESTOR@[facility] Spouting Installer 08/19/18 Cris Aburto, [facility] [address] [place] [address] [email or web address] Structural Drafter 12/26/18 Arlin Cherry, [facility] [address] [place] [address] Maykel@[facility] Structural Drafter Oncology 07/26/19 Shun Schuster MD Rohan@[email or web address] Primary Oncologist Medical Oncology 04/12/20 06/21/21 Jaspal Ordoñez MD [address] [place] [address] [email or web address] Palliative Care 12/22/20 Joelle Grande MD, MSc [address] [place] [address] JOSÉ MANUEL@[email or web address] Surgical Oncology 03/07/21 Danuta Patel MD [address] [place] [address] [email or web address] Medical Oncology 06/22/21 documented as of this encounter Additional Source Comments The information contained in this document represents components of the legal health record. It is not the complete legal health record.[facility]
--- OUTSIDE RECORDS SUMMARY | 2025-11-03 12:31 | XMS_ITS | Encounter Summary ---
Author Organization [facility] Address [address] [place] [address] Phone Care Team Providers Care Ribbon Lap Machine Tender Name Role Phone Chiara Diggs MD Primary Care Provider [phone] Joelle Grande MD, MSc Unavailable Oly Kraus MD, MPH Unavailable + [phone] Daryn Donohue MD Unavailable Savanna Banegas Unavailable Cris Aburto [employer] Unavailable + [phone] Arlin Cherry [employer] Unavailable [phone] Jaspal Ordoñez MD Unavailable Joelle Grande MD, MSc Unavailable Danuta Patel MD Unavailable [phone] Encounter Details Date Type Department Care Team (Late st Contact Info) Description 07/02/2024 Procedure Pass [facility] [place] [place] [address] [facility], Floor [address]1 [place] [address] Social History Tobacco Use Types Packs/Day Years [...] Description 07/29/2025 Procedure Pass [facility] Imaging Department, [facility], [address], [facility] L1 [place] [address] 07/29/2025 Procedure Pass [facility] Imaging Department, [facility], [address], [place] [address]1 [place] [address] 07/31/2026 1:40 PM EDT Appointment [facility] Imaging Department, [facility], [address], Floor [address]1 [place] [address] Danuta Patel MD [address] [place] [address] [email or web address] 08/04/2026 10:30 AM EDT [facility], [address], 6th [place] [address] Danuta Patel MD [address] [place] [address] Agnes@[facility] documented as of this encounter Visit Diagnoses Not on filedocumented in this encounter Additional Health Concerns Assessment Noted Time PHQ-2 Depression Total Score: 0 11/12/19 20 1:45 PM EST documented as of this encounter Care Teams Ribbon Lap Machine Tender Relationship Specialty Start Date End Date Chiara Diggs MD [address] [place] [address] [place] [phone] PCP - General Internal Medicine 07/25/18 Joelle Grande MD, MSc [address] [place] [address] JOSÉ MANUEL@[email or web address] Surgeon Surgical Oncology 08/15/18 Oly Kraus MD, MPH [address] [place] [address] Lolis@[facility] Primary Oncologist Radiation Oncology 08/15/18 Daryn Donohue MD [address] [place] [address] Referring Physician Urology 08/19/18 Savanna Banegas [address] [place] [address] NESTOR@[facility] Retail Coordinator 08/19/18 Cris Aburto, [facility] [address] [place] [address] [email or web address] Flare Breaker 12/26/18 Arlin Cherry, [facility] [address] [place] [address] Maykel@[facility] Flare Breaker Oncology 07/26/19 Jaspal Ordoñez MD [address] [place] [address] [email or web address] Palliative Care 12/22/20 Joelle Grande MD, MSc [address] [place] [address] JOSÉ MANUEL@[email or web address] Surgical Oncology 03/07/21 Danuta Patel MD [address] [place] [address] Agnes@[email or web address] Medical Oncology 06/22/21 documented as of this encounter Additional Source Comments The information contained in this document represents components of the legal health record. It is not the complete legal health record.[facility]
--- OUTSIDE RECORDS SUMMARY | 2025-11-03 12:31 | XMS_ITS | Encounter Summary ---
Author Organization [facility] Address [address] [place] [address] Phone Care Team Providers Care Heat Treating Operator Name Role Phone Chiara Diggs MD Primary Care Provider [phone] Joelle Grande MD, MSc Unavailable Oly Kraus MD, MPH Unavailable + [phone] Valerie Conti MD Unavailable [phone] Daryn Donohue MD Unavailable [phone] Savanna Banegas Unavailable Sindy Isaacs MEDICAL OFFICE CLERK Unavailable [phone] Cris Aburto MEDICAL OFFICE CLERK Unavailable [phone] Arlin Cherry MEDICAL OFFICE CLERK Unavailable [phone] Shun Schuster MD Unavailable Portia [email or web address] Jaspal Pettit MD Unavailable Joelle Grande MD, MSc Unavailable Danuta Patel MD Unavailable [phone] Encounter Details Date Type Department Care Team (Late st Contact Info) Description 02/10/2019 Procedure Pass [facility] Endoscopy Department [address] [place] [address] Social History Tobacco Use Types Packs/Day Years [...] Procedure Pass [facility] Imaging Department, [facility], [place] [address] [facility], Floor [address]1 [place] [address] 07/29/2025 Procedure Pass [facility] Imaging Department, [facility], [place] [address] [facility], Floor L1 [place] [address] 07/31/2026 1:40 PM EDT Appointment [facility] Imaging Department, [facility], [place] [address] [facility], Floor [address]1 [place] [address] Danuta Patel MD [address] [place] [address] Agnes@[facility] 08/04/2026 10:30 AM EDT [facility], [address], 6th [place] [address] Danuta Patel MD [address] [place] [phone] Agnes@[facility] documented as of this encounter [...] documented as of this encounter Care Teams Heat Treating Operator Relationship Specialty Start Date End Date oDntae, Chiara Crandall MD [address] [place] [address] [address] [place] [phone] PCP - General Internal Medicine 07/25/18 Joelle Grande MD, MSc [address] [place] [address] JOSÉ MANUEL@[facility] Surgeon Surgical Oncology 08/15/18 Oly Kraus MD, MPH [address] [place] [address] Lolis@[facility] Primary Oncologist Radiation Oncology 08/15/18 Valerie Conti MD [address] [place] [address] Mariusz@[facility] Primary Oncologist Medical Oncology 08/15/18 04/11/20 Daryn Donohue MD [address] [place] [address] Referring Physician Urology 08/19/18 Savanna Banegas [address] [place] [address] NESTOR@[email or web address] Transitional Care Nurse 08/19/18 Sindy Isaacs, [address] [address] Gregorio@[email or web address] Radio Repairman Oncology 09/16/18 07/25/19 Cris Aburto, [address] [address] delvin@[facility] Radio Repairman 12/26/18 Arlin Cherry, [address] [address] Maykel@[facility] Radio Repairman Oncology 07/26/19 Shun Schuster MD Rohan@[facility] Primary Oncologist Medical Oncology 04/12/20 06/21/21 Jaspal Ordoñez MD [address] [place] [address] [email or web address] Palliative Care 12/22/20 Joelle Grande MD, MSc [address] [place] [address] JOSÉ MANUEL@[facility] Surgical Oncology 03/07/21 Danuta Patel MD [address] [place] [address] Agnes@[facility] Medical Oncology 06/22/21 documented as of this encounter Additional Source Comments The information contained in this document represents components of the legal health record. It is not the complete legal health record.[facility]
--- OUTSIDE RECORDS SUMMARY | 2025-11-03 12:31 | XMS_ITS | Encounter Summary ---
Author Organization [facility] Address [address] [place] [address] Phone Care Team Providers Care Moisture Conditioner Operator Name Role Phone Chiara Diggs MD Primary Care Provider [phone] Joelle Grande MD, MSc Unavailable Oly Kraus MD, MPH Unavailable + [phone] Valerie Conti MD Unavailable [phone] Daryn Donohue MD Unavailable Savanna Banegas Unavailable Sindy Isaacs FASHION ADVISER Unavailable [phone] Cris Aburto FASHION ADVISER Unavailable [phone] Arlin Cherry FASHION ADVISER Unavailable [phone] Shun Schuster MD Unavailable Portia [email or web address] Jaspal Pettit MD Unavailable Joelle Grande MD, MSc Unavailable Danuta Patel MD Unavailable [phone] Encounter Details Date Type Department Care Team (Late st Contact Info) Description 08/15/2018 Procedure Pass [facility] [address] [place] [address] Social History Tobacco Use Types Packs/Day Years Used Date Smoking Tobacco: Former Cigarettes 0.3 2 1 [phone] Smokeless Tobacco: Never Alcohol Use Standard Drinks/Week [...] Info) Description 07/29/2025 Procedure Pass [facility] Imaging Department, [facility], [place] [address] [facility], Floor L1 [place] [address] 07/29/2025 Procedure Pass [facility] Imaging Department, [facility], [place] [address] [facility], Floor [address]1 [place] [address] 07/31/2026 1:40 PM EDT Appointment [facility] Imaging Department, [facility], [place] [address] [facility], Floor [address]1 [place] [address] Danuta Patel MD [address] [place] [address] Agnes@[facility] 08/04/2026 10:30 AM EDT [facility], [address], 6th [place] [address] Danuta Patel MD [address] [place] [address] Agnes@[facility] documented as of this encounter Visit Diagnoses Not on filedocumented in this encounter Additional Health Concerns 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 02/28/2019 12/20/2022 1:[address] CoV-Presumed Comment:12/12: Symptom onset- fatigue, ST, cough, SOB 12/13: positive PCR outside lab (needs to be uploaded to [facility])- Yohana Noble RN 12/12/2021 12/13/2021 01/01/2022 1:[address] documented as of this encounter Care Teams Moisture Conditioner Operator Relationship Specialty Start Date End Date Chiara Diggs MD [address] [place] [address] [address] [place] [phone] PCP - General Internal Medicine 07/25/18 Joelle Grande MD, MSc [address] [place] [address] JOSÉ MANUEL@[facility] Surgeon Surgical Oncology 08/15/18 Oly Kraus MD, MPH [address] [place] [address] Lolis@[facility] Primary Oncologist Radiation Oncology 08/15/18 Valerie Conti MD [address] [place] [address] Mariusz@[facility] Primary Oncologist Medical Oncology 08/15/18 04/11/20 Daryn Donohue MD [address] [place] [address] Referring Physician Urology 08/19/18 Savanna Banegas [address] [place] [address] NESTOR@[facility] Fabrication Operator 08/19/18 Sindy Isaacs, [address] [address] [email or web address]@[facility] Steel Pourer Helper Oncology 09/16/18 07/25/19 Cris Aburto, [address] [address] delvin@[email or web address] Steel Pourer Helper 12/26/18 Arlin Cherry, [address] [address] Maykel@[facility] Steel Pourer Helper Oncology 07/26/19 Shun Schuster MD Rohan@[facility] Primary Oncologist Medical Oncology 04/12/20 06/21/21 Jaspal Ordoñez MD [address] [place] [address] [email or web address] Palliative Care 12/22/20 Joelle Grande MD, MSc [address] [place] [address] JOSÉ MANUEL@[facility] Surgical Oncology 03/07/21 Danuta Patel MD [address] [place] [address] Agnes@[facility] Medical Oncology 06/22/21 documented as of this encounter Additional Source Comments The information contained in this document represents components of the legal health record. It is not the complete legal health record.[facility]
--- OUTSIDE RECORDS SUMMARY | 2025-11-03 12:31 | XMS_ITS | Encounter Summary ---
Author Organization [facility] Address [address] [place] [address] Phone Care Team Providers Care Cyber Systems Administrator Name Role Phone Chiara Diggs MD Primary Care Provider [phone] Joelle Grande MD, MSc Unavailable Oly Kraus MD, MPH Unavailable + [phone] Valerie Conti MD Unavailable [phone] Daryn Donohue MD Unavailable [phone] Savanna Banegas Unavailable Sindy Isaacs PREPARATOR Unavailable [phone] Cris Aburto PREPARATOR Unavailable [phone] Arlin Cherry PREPARATOR Unavailable [phone] Shun Schuster MD Unavailable Portia Baez@[email or web address] Jaspal Pettit MD Unavailable Joelle Grande MD, MSc Unavailable Danuta Patel MD Unavailable [phone] Reason for Referral * MRI/CAT Scan - Closed Specialty Diagnoses / Procedures Referred By Contac t Referred To Contact Procedures MRI Abdomen Outside (No Interpretation) Donnie Moore MD Phone: tel: fax: mailto:[email or web address] Referral ID Status Reason Start Date Expiration Date Visits Re quested Visits Authorized [id number] Closed 08/15/2018 08/15/2019 1 1 * MRI/CAT Scan - Closed Specialty Diagnoses / Procedures Referred By Contac t Referred To Contact Procedures MRI Spine (Neuro) Outside (No Interpretation) Donnie Moore MD Phone: tel: fax: mailto:[email or web address] Referral ID Status Reason Start Date Expiration Date Visits Re quested Visits Authorized [id number] Closed 08/15/2018 08/15/2019 1 1 * MRI/CAT Scan - Closed Specialty Diagnoses / Procedures Referred By Contac t Referred To Contact Procedures MRI Abdomen Outside (No Interpretation) Donnie Moore MD Phone: tel: fax: mailto:[email or web address] Referral ID Status Reason Start Date Expiration Date Visits Re quested Visits Authorized [id number] Closed 08/15/2018 08/15/2019 1 1 * MRI/CAT Scan - Closed Specialty Diagnoses / Procedures Referred By Contac t Referred To Contact Procedures CT Abdomen/Pelvis Outside (No Interpretation) Donnie Moore MD Phone: tel: fax: mailto:[email or web address] Referral ID Status Reason Start Date Expiration Date Visits Re quested Visits Authorized [id number] Closed 08/15/2018 08/15/2019 1 1 Encounter Details Date Type Department Care Team (Late st Contact Info) Description 08/15/2018 Transcribe Orders [facility] [address] [place] [address] Samina Zaragoza [address] [place] [address] ROSE@[facility] Social History Tobacco Use Types Packs/Day [...] Info) Description 07/29/2025 Procedure Pass [facility] Imaging Department, [facility], [place] [address] [facility], Floor L1 [place] [address] 07/29/2025 Procedure Pass [facility] Imaging Department, [facility] [place] [address] [facility], Floor [address]1 [place] [address] 07/31/2026 1:40 PM EDT Appointment [facility] Imaging Department, [facility], [place] [address] [facility], Floor [address]1 [place] [address] Danuta Patel MD [address] [place] [address] Agnes@[facility] 08/04/2026 10:30 AM EDT [facility], [facility] Cancer [address], 6th [place] [address] Danuta Patel MD [address] [place] [address] [email or web address] documented as of this encounter Results * MRI Abdomen Outside (No Interpretation) (08/15/2018 1:15 AM EDT) Narrative PERCIPIO_BW - 08/15/2018 11:02 AM EDT This study is for PACS storage only and not for interpretation. us Donnie Moore MD IMG OUTSIDE IMAGING W/OUT INT ERPRETATION Final Result Performing Organization Address [facility] de Phone Number PERCIPIO_B[facility] * XR SPINE OUTSIDE(NO INTERPRETATION) (08/15/2018 1:00 AM EDT) Narrative PERCIPIO_BW - 08/15/2018 11:02 AM EDT This study is for PACS storage only and not for interpretation. us Donnie Moore MD IMG OUTSIDE IMAGING W/OUT INT ERPRETATION Final Result Performing Organization Address [facility] de Phone Number PERCIPIO_B[facility] * MRI Spine (Neuro) Outside (No Interpretation) (08/15/2018 12:45 AM EDT) Narrative PERCIPIO_BW - 08/15/2018 11:02 AM EDT This study is for PACS storage only and not for interpretation. us Donnie Moore MD IMG OUTSIDE IMAGING W/OUT INT ERPRETATION Final Result Performing Organization Address [facility] de Phone Number PERCIPIO_BWH * US Abdomen Outside (No Interpretation) (08/15/2018 12:30 AM EDT) Narrative PERCIPIO_BW - 08/15/2018 11:02 AM EDT This study is for PACS storage only and not for interpretation. us Donnie Moore MD IMG OUTSIDE IMAGING W/OUT INT ERPRETATION Final Result Performing Organization Address [facility] Co de Phone Number PERCIPIO_BWH [...] outside lab (needs to be uploaded to [email or web address])- Yohana Noble RN 12/12/2021 12/13/2021 01/01/2022 1:[address] documented as of this encounter Care Teams Cyber Systems Administrator Relationship Specialty Start Date End Date Chiara Diggs MD [address] [place] [address] [place] [phone] PCP - General Internal Medicine 07/25/18 Joelle Grande MD, MSc [address] [place] [address] JOSÉ MANUEL@[email or web address] Surgeon Surgical Oncology 08/15/18 Oly Kraus MD, MPH [address] [place] [address] Lolis@[facility] Primary Oncologist Radiation Oncology 08/15/18 Valerie Conti MD [address] [place] [address] Mariusz@[facility] Primary Oncologist Medical Oncology 08/15/18 04/11/20 Daryn Donohue MD [address] [place] [address] Referring Physician Urology 08/19/18 Savanna Banegas [address] [place] [address] NESTOR@[facility] Private Tutors And Teachers 08/19/18 Sindy Isaacs, [address] [address] Gregorio@[facility] Process Line Operator Oncology 09/16/18 07/25/19 Cris Aburto, [address] [address] delvin@[facility] Process Line Operator 12/26/18 Arlin Cherry, [address] [address] Maykel@[facility] Process Line Operator Oncology 07/26/19 Shun Schuster MD Rohan@[email or web address] Primary Oncologist Medical Oncology 04/12/20 06/21/21 Jaspal Ordoñez MD [address] [place] [address] Palliative Care 2/17/21 Joelle Grande MD, MSc [address] [place] [address] JOSÉ MANUEL@[email or web address] Surgical Oncology 03/07/21 Danuta Patel MD [address] [place] [address] Agnes@[facility] Medical Oncology 06/22/21 documented as of this encounter Additional Source Comments The information contained in this document represents components of the legal health record. It is not the complete legal health record.[facility]
--- OUTSIDE RECORDS SUMMARY | 2025-11-03 12:31 | XMS_ITS | Encounter Summary ---
Author Organization [facility] Address [address] [place] [address] Phone Care Team Providers Care Electronic Gluer Name Role Phone Chiara Diggs MD Primary Care Provider [phone] Joelle Grande MD, MSc Unavailable Oly Kraus MD, MPH Unavailable + [phone] Valerie Conti MD Unavailable [phone] Daryn Donohue MD Unavailable Savanna Banegas Unavailable Sindy Isaacs KNOT BUMPER Unavailable [phone] Cris Aburto KNOT BUMPER Unavailable +[phone] Arlin Cherry KNOT BUMPER Unavailable +[phone] Shun Schuster MD Unavailable Portia [email or web address] Jaspal Pettit MD Unavailable Joelle Grande MD, MSc Unavailable Danuta Patel MD Unavailable [phone] Encounter Details Date Type Department Care Team (Late st Contact Info) Description 02/21/2019 [facility] [address] [place] [address] Social History Tobacco Use Types Packs/Day Years [...] st Contact Info) Description 07/29/2025 Procedure Pass [facility], [facility], [place] [address] [facility], Floor L1 [place] [address] 07/29/2025 Procedure Pass [facility], [facility], [place] [address] [facility], Floor [address]1 [place] [address] 07/31/2026 1:40 PM EDT Appointment [facility], [facility], [place] [address] [facility], Floor [address]1 [place] [address] Danuta Patel MD [address] [place] [address] Agnes@[facility] 08/04/2026 10:30 AM EDT [facility], [address], 6th [place] [address] Danuta Patel MD [address] [place] [address] Agnes@[facility] documented as of this encounter Visit [...] as of this encounter Care Teams Electronic Gluer Relationship Specialty Start Date End Date Chiara Diggs MD [address] [place] [address] [address] [place] [phone] PCP - General Internal Medicine 07/25/18 Joelle Grande MD, MSc [address] [place] [address] JOSÉ MANUEL@[facility] Surgeon Surgical Oncology 08/15/18 Oly Kraus MD, MPH [address] [place] [address] Lolis@[facility] Primary Oncologist Radiation Oncology 08/15/18 Valerie Conti MD [address] [place] [address] Mariusz@[email or web address] Primary Oncologist Medical Oncology 08/15/18 04/11/20 Daryn Donohue MD [address] [place] [address] Referring Physician Urology 08/19/18 Savanna Banegas [address] [place] [address] NESTOR@[facility] Chimney Sweeper 08/19/18 Sindy Isaacs, [address] [address] [email or web address]@[facility] Tipple Tender Oncology 09/16/18 07/25/19 Cris Aburto, [address] [address] [email or web address] Tipple Tender 12/26/18 Arlin Cherry, [address] [address] Maykel@[facility] Tipple Tender Oncology 07/26/19 Shun Schuster MD Rohan@[email or web address] Primary Oncologist Medical Oncology 04/12/20 06/21/21 Jaspal Ordoñez MD [address] [place] [address] [email or web address] Palliative Care 12/22/20 Joelle Grande MD, MSc [address] [place] [address] JOSÉ MANUEL@[facility] Surgical Oncology 03/07/21 Danuta Patel MD [address] [place] [address] Agnes@[facility] Medical Oncology 06/22/21 documented as of this encounter Additional Source Comments The information contained in this document represents components of the legal health record. It is not the complete legal health record.[facility]
--- OUTSIDE RECORDS SUMMARY | 2025-11-03 12:31 | XMS_ITS | Encounter Summary ---
Author Organization [facility] Address [address] [place] [address] Phone Care Team Providers Care Mold Maintenance Technician Name Role Phone Chiara Diggs MD Primary Care Provider [phone] Joelle Grande MD, MSc Unavailable Oly Kraus MD, MPH Unavailable + [phone] Daryn Donohue MD Unavailable [phone] Savanna Banegas Unavailable Cris Aburto FITNESS AND WELLNESS MANAGER Unavailable + [phone] Arlin Cherry FITNESS AND WELLNESS MANAGER Unavailable [phone] Jaspal Ordoñez MD Unavailable Joelle Grande MD, MSc Unavailable Danuta Patel MD Unavailable [phone] Encounter Details Date Type Department Care Team (Late st Contact Info) Description 07/02/2024 Procedure [facility] [place] [address] [facility], Floor L1 [place] [address] Social History Tobacco Use Types Packs/Day Years [...] st Contact Info) Description 07/29/2025 Procedure Pass [facility] Imaging Department, [facility], [address], [facility] L1 [place] [address] 07/29/2025 Procedure Pass [facility] Imaging Department, [facility], [address], Floor L1 [place] [address] 07/31/2026 1:40 PM EDT Appointment [facility] Imaging Department, [facility], [address], Floor L1 [place] [address] Danuta Patel MD [address] [place] [address] [email or web address] 08/04/2026 10:30 AM EDT [facility], [address], 6th [place] [address] Danuta Patel MD [address] [place] [address] Agnes@[facility] documented as of this encounter Visit Diagnoses Not on filedocumented in this encounter Additional Health Concerns Assessment Noted Time PHQ-2 Depression Total Score: 0 11/12/19 20 1:45 PM EST documented as of this encounter Care Teams Mold Maintenance Technician Relationship Specialty Start Date End Date Chiara Diggs MD [address] [place] [address] [place] [phone] PCP - General Internal Medicine 07/25/18 Joelle Grande MD, MSc [address] [place] [address] JOSÉ MANUEL@[facility] Surgeon Surgical Oncology 08/15/18 Oly Kraus MD, MPH [address] [place] [address] Lolis@[facility] Primary Oncologist Radiation Oncology 08/15/18 Daryn Donohue MD [address] [place] [address] Referring Physician Urology 08/19/18 Savanna Banegas [address] [place] [address] NESTOR@[facility] Puncher 08/19/18 Cris Aburto, [facility] [address] [place] [address] [email or web address]@[facility] Laser Engineer 12/26/18 Arlin [place], [facility] [address] [place] [address] Maykel@[facility] Laser Engineer Oncology 07/26/19 Jaspal Ordoñez MD [address] [place] [address] [email or web address] Palliative Care 12/22/20 Joelle Grande MD, MSc [address] [place] [address] JOSÉ [email or web address] Surgical Oncology 03/07/21 Danuta Patel MD [address] [place] [address] Agnes@[email or web address] Medical Oncology 06/22/21 documented as of this encounter Additional Source Comments The information contained in this document represents components of the legal health record. It is not the complete legal health record.[facility]
--- OUTSIDE RECORDS SUMMARY | 2025-11-03 12:31 | XMS_ITS | Encounter Summary ---
Author Organization [facility] Address [address] [place] [address] Phone Care Team Providers Care Scheduling Analyst Name Role Phone Chiara Diggs MD Primary Care Provider [phone] Joelle Grande MD, MSc Unavailable Oly Kraus MD, MPH Unavailable + [phone] Valerie Conti MD Unavailable [phone] Daryn Donohue MD Unavailable Savanna Banegas Unavailable Sindy Isaacs CASINO ATTENDANT Unavailable [phone] Cris Aburto CASINO ATTENDANT Unavailable +[phone] Arlin Cherry CASINO ATTENDANT Unavailable [phone] Shun Schuster MD Unavailable Portia [email or web address] Jaspal Pettit MD Unavailable Joelle Grande MD, MSc Unavailable Danuta Patel MD Unavailable [phone] Encounter Details Date Type Department Care Team (Late st Contact Info) Description 02/20/2019 [facility] [address] [place] [address] Social History Tobacco Use Types Packs/Day Years [...] Info) Description 07/29/2025 Procedure Pass [facility] Imaging Department, [facility], [place] [address] [facility], Floor [address]1 [place] [address] 07/29/2025 Procedure Pass [facility] Imaging Department, [facility], [place] [address] [facility], Floor [address]1 [place] [address] 07/31/2026 1:40 PM EDT Appointment [facility] Imaging Department, [facility], [place] [address] [facility], Floor [address]1 [place] [address] Danuta Patel MD [address] [place] [address] Agnes@[email or web address] 08/04/2026 10:30 AM EDT Tele[facility], [facility] Cancer [address], 6th [place] [address] Danuta Patel MD [address] [place] [address] Agnes@[facility] documented as of this encounter Visit Diagnoses Not on filedocumented in this encounter Additional Health Concerns 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 02/28/2019 12/20/2022 1:[address] CoV-Presumed Comment:12/12: Symptom onset- fatigue, ST, cough, SOB 12/13: positive PCR outside lab (needs to be uploaded to [employer])- Yohana Noble RN 12/12/2021 12/13/2021 01/01/2022 1:[address] documented as of this encounter Care Teams Scheduling Analyst Relationship Specialty Start Date End Date Po, Chiara Crandall MD [address] [place] [address] [place] [phone] PCP - General Internal Medicine 07/25/18 Joelle Grande MD, MSc [address] [place] [address] JOSÉ MANUEL@[facility] Surgeon Surgical Oncology 08/15/18 Oly Kraus MD, MPH [address] [place] [address] Lolis@[facility] Primary Oncologist Radiation Oncology 08/15/18 Valerie Conti MD [address] [place] [address] Mariusz@[email or web address] Primary Oncologist Medical Oncology 08/15/18 04/11/20 Daryn Donohue MD [address] [place] [address] Referring Physician Urology 08/19/18 Savanna Banegas [address] [place] [address] [email or web address]@[facility] Supervisor Sample Preparation 08/19/18 Sindy Isaacs, [address] [address] Gregorio@[facility] Shoe Repairman Oncology 09/16/18 07/25/19 Cris Aburto, [address] [address] delvin@[email or web address] Shoe Repairman 12/26/18 Arlin [place], [address] [address] Maykel@[facility] Shoe Repairman Oncology 07/26/19 Shun Schuster MD Rohan@[facility] Primary Oncologist Medical Oncology 04/12/20 06/21/21 Jaspal Ordoñez MD [address] [place] [address] [email or web address] Palliative Care 12/22/20 Joelle Grande MD, MSc [address] [place] [address] JOSÉ MANUEL@[facility] Surgical Oncology 03/07/21 Danuta Patel MD [address] [place] [address] Agnes@[facility] Medical Oncology 06/22/21 documented as of this encounter Additional Source Comments The information contained in this document represents components of the legal health record. It is not the complete legal health record.[facility]
--- OUTSIDE RECORDS SUMMARY | 2025-11-03 12:31 | XMS_ITS | Encounter Summary ---
Author Organization [facility] Address [address] [place] [address] Phone Care Team Providers Care Manager Of Engineering Name Role Phone Chiara Diggs MD Primary Care Provider [phone] Joelle Grande MD, MSc Unavailable Oly Kraus MD, MPH Unavailable + [phone] Valerie Conti MD Unavailable [phone] Daryn Donohue MD Unavailable [phone] Savanna Banegas Unavailable Sindy Isaacs NEWSPERSON Unavailable [phone] Cris Aburto NEWSPERSON Unavailable [phone] Arlin Cherry NEWSPERSON Unavailable [phone] Shun Schuster MD Unavailable Portia Baez@[email or web address] Jaspal Pettit MD Unavailable Joelle Grande MD, MSc Unavailable Danuta Patel MD Unavailable [phone] Encounter Details Date Type Department Care Team (Late st Contact Info) Description 03/27/2019 Procedure Pass [facility] Per[facility] [address] [place] [address] Social History Tobacco Use Types Packs/Day Years [...] 07/29/[address] [facility], [facility], [place] [address] [facility], Floor [address]1 [place] [address] 07/29/[address] [facility], [facility], [place] [address] [facility], Floor [address]1 [place] [address] 07/31/2026 1:[address] [facility] Imaging Department, [facility], [place] [address] [facility], Floor [address] [place] [address] Danuta Patel MD [address] [place] [address] Agnes@[facility] 08/04/2026 10:30 AM EDT [facility], [address], 6th [place] [address] Danuta Patel MD [address] [place] [address] Agnes@[facility] documented as of this encounter Visit Diagnoses [...] as of this encounter Care Teams Manager Of Engineering Relationship Specialty Start Date End Date Dontae, Chiara Crandall MD [address] [place] [address] [address] [place] [phone] PCP - General Internal Medicine 07/25/18 Joelle Grande MD, MSc [address] [place] [address] JOSÉ MANUEL@[facility] Surgeon Surgical Oncology 08/15/18 Oly Kraus MD, MPH [address] [place] [address] Lolis@[facility] Primary Oncologist Radiation Oncology 08/15/18 Valerie Conti MD [address] [place] [address] Mariusz@[facility] Primary Oncologist Medical Oncology 08/15/18 04/11/20 Daryn Donohue MD [address] [place] [address] Referring Physician Urology 08/19/18 Savanna Banegas [address] [place] [address] NESTOR@[email or web address] Lead Radiation Therapist 08/19/18 Sindy Isaacs, [address] [address] Gregorio@[facility] Railroad Firer Oncology 09/16/18 07/25/19 Cris Aburto, [address] [address] [email or web address] Railroad Firer 12/26/18 Arlin [place], [address] [address] Maykel@[facility] Railroad Firer Oncology 07/26/19 Shun Schuster MD Rohan@[email or web address] Primary Oncologist Medical Oncology 04/12/20 06/21/21 Jaspal Ordoñez MD [address] [place] [address] [email or web address] Palliative Care 12/22/20 Joelle Grande MD, MSc [address] [place] [address] JOSÉ MANUEL@[facility] Surgical Oncology 03/07/21 Danuta Patel MD [address] [place] [address] Agnes@[facility] Medical Oncology 06/22/21 documented as of this encounter Additional Source Comments The information contained in this document represents components of the legal health record. It is not the complete legal health record.[facility]
--- OUTSIDE RECORDS SUMMARY | 2025-11-03 12:31 | XMS_ITS | Encounter Summary ---
Author Organization [facility] Address [address] [place] [address] Phone Care Team Providers Care Patient Service Coordinator Name Role Phone Chiara Diggs MD Primary Care Provider [phone] Joelle Grande MD, MSc Unavailable Oly Kraus MD, MPH Unavailable + [phone] Valerie Conti MD Unavailable [phone] Daryn Donohue MD Unavailable [phone] Savanna Banegas Unavailable Sindy Isaacs MANAGER RADIATION Unavailable [phone] Cris Aburto MANAGER RADIATION Unavailable +[phone] Arlin Cherry MANAGER RADIATION Unavailable [phone] Shun Schuster MD Unavailable Portia Baez@[email or web address] Jaspal Pettit MD Unavailable Joelle Grande MD, MSc Unavailable Danuta Patel MD Unavailable [phone] Encounter Details Date Type Department Care Team (Late st Contact Info) Description 08/15/2018 [facility] [address] [place] [address] Social History Tobacco Use Types Packs/Day Years Used Date Smoking Tobacco: Former Cigarettes 0.3 2 1 962 - 9279 Smokeless Tobacco: Never Alcohol Use Standard Drinks/Week [...] Procedure Pass [facility] Imaging Department, [facility], [place] [address] [facility], Floor L1 [place] [address] 07/29/2025 Procedure Pass [facility] Imaging Department, [facility] [place] [address] [facility], Floor L1 [place] [address] 07/31/2026 1:40 PM EDT Appointment [facility] Imaging Department, [facility], [place] [address] [facility], Floor [address]1 [place] [address] Danuta Patel MD [address] [place] [address] Agnes@[facility] 08/04/2026 10:30 AM EDT [facility], [address], 6th [place] [address] Danuta Patel MD [address] [place] [address] Agnes@[facility] documented as of this encounter Visit [...] documented as of this encounter Care Teams Patient Service Coordinator Relationship Specialty Start Date End Date Chiara Diggs MD [address] [place] [address] Drive [address] [place] [phone] PCP - General Internal Medicine 07/25/18 Joelle Grande MD, MSc [address] [place] [address] JOSÉ MANUEL@[facility] Surgeon Surgical Oncology 08/15/18 Oly Kraus MD, MPH [address] [place] [address] Lolis@[facility] Primary Oncologist Radiation Oncology 08/15/18 Valerie Conti MD [address] [place] [address] Mariusz@[facility] Primary Oncologist Medical Oncology 08/15/18 04/11/20 Daryn Donohue MD [address] [place] [address] Referring Physician Urology 08/19/18 Savanna Banegas [address] [place] [address] NESTOR@[facility] Package Sorter 08/19/18 Sindy Isaacs, [address] [address] SindyBettyShital@[facility] Financial Representative Oncology 09/16/18 07/25/19 Cris Aburto, [address] [address] delvin@[facility] Financial Representative 12/26/18 Arlin [place], [address] [address] Maykel@[facility] Financial Representative Oncology 07/26/19 Shun Schuster MD Rohan@[facility] Primary Oncologist Medical Oncology 04/12/20 06/21/21 Jaspal Ordoñez MD [address] [place] [address] [email or web address] Palliative Care 12/22/20 Joelle Grande MD, MSc [address] [place] [address] JOSÉ MANUEL@[facility] Surgical Oncology 03/07/21 Danuta Patel MD [address] [place] [address] Agnes@[facility] Medical Oncology 06/22/21 documented as of this encounter Additional Source Comments The information contained in this document represents components of the legal health record. It is not the complete legal health record.[facility]
--- OUTSIDE RECORDS SUMMARY | 2025-11-03 12:31 | XMS_ITS | Encounter Summary ---
Author Organization [facility] Address [address] [place] [address] Phone Care Team Providers Care Cocoa Powder Mixer Operator Name Role Phone Chiara Diggs MD Primary Care Provider [phone] Joelle Grande MD, MSc Unavailable Oly Kraus MD, MPH Unavailable + [phone] Valerie Conti MD Unavailable [phone] Daryn Donohue MD Unavailable Savanna Banegas Unavailable Sindy Isaacs EQUITIES ANALYST Unavailable +[phone] Cris Aburto EQUITIES ANALYST Unavailable [phone] Arlin [place] EQUITIES ANALYST Unavailable [phone] Shun Schuster MD Unavailable Portia [email or web address] Jaspal Pettit MD Unavailable Joelle Grande MD, MSc Unavailable Danuta Patel MD Unavailable [phone] Encounter Details Date Type Department Care Team (Late st Contact Info) Description 08/15/2018 [facility] [address] [place] [address] Social History Tobacco Use Types Packs/Day Years Used Date Smoking Tobacco: Former Cigarettes 0.3 2 1 962 - 8362 Smokeless Tobacco: Never Alcohol Use Standard Drinks/Week [...] Pass [facility] Imaging Department, [facility], [place] [address] [facility], Floor [address]1 [place] [address] 07/29/2025 Procedure Pass [facility] Imaging Department, [facility], [place] [address] [facility], Floor [address]1 [place] [address] 07/31/2026 1:40 PM EDT Appointment [facility] Imaging Department, [facility], [place] [address] [facility], Floor [address] [place] [address] Danuta Patel MD [address] [place] [address] Agnes@[facility] 08/04/2026 10:30 AM EDT [facility], [address], 6th [place] [address] Danuta Patel MD [address] [place] [address] Agnes@[facility] documented as of this encounter Visit Diagnoses [...] documented as of this encounter Care Teams Cocoa Powder Mixer Operator Relationship Specialty Start Date End Date Chiara Diggs MD [address] [place] [address] [address] [place] [phone] PCP - General Internal Medicine 07/25/18 Joelle Grande MD, MSc [address] [place] [address] JOSÉ MANUEL@[facility] Surgeon Surgical Oncology 08/15/18 Oly Kraus MD, MPH [address] [place] [address] Lolis@[facility] Primary Oncologist Radiation Oncology 08/15/18 Valerie Conti MD [address] [place] [address] Mariusz@[facility] Primary Oncologist Medical Oncology 08/15/18 04/11/20 Daryn Donohue MD [address] [place] [address] Referring Physician Urology 08/19/18 Savanna Banegas [address] [place] [address] NESTOR@[facility] Neonatal Social Worker 08/19/18 Sindy Isaacs, [address] [address] SindyBettyShital@[facility] Marketing And Promotions Manager Oncology 09/16/18 07/25/19 Cris Aburto, [address] [address] delvin@[facility] Marketing And Promotions Manager 12/26/18 Arlin Cherry, [address] [address] Maykel@[facility] Marketing And Promotions Manager Oncology 07/26/19 Shun Schuster MD Rohan@[facility] Primary Oncologist Medical Oncology 04/12/20 06/21/21 Jaspal Ordoñez MD [address] [place] [address] [email or web address] Palliative Care 12/22/20 Joelle Grande MD, MSc [address] [place] [address] JOSÉ MANUEL@[facility] Surgical Oncology 03/07/21 Danuta Patel MD [address] [place] [address] Agnes@[facility] Medical Oncology 06/22/21 documented as of this encounter Additional Source Comments The information contained in this document represents components of the legal health record. It is not the complete legal health record.[facility]
--- OUTSIDE RECORDS SUMMARY | 2025-11-03 12:31 | XMS_ITS | Encounter Summary ---
Author Organization [facility] Address [address] [place] [address] Phone Care Team Providers Care Senior Merchandiser Name Role Phone Chiara Diggs MD Primary Care Provider [phone] Joelle Grande MD, MSc Unavailable Oly Kraus MD, MPH Unavailable + [phone] Valerie Conti MD Unavailable [phone] Daryn Donohue MD Unavailable [phone] Savanna Banegas Unavailable Sindy Isaacs ABRASIVES SALES REPRESENTATIVE Unavailable [phone] Cris Aburto ABRASIVES SALES REPRESENTATIVE Unavailable +[phone] Arlin Cherry ABRASIVES SALES REPRESENTATIVE Unavailable [phone] Shun Schuster MD Unavailable Portia [email or web address] Jaspal Pettit MD Unavailable Joelle Grande MD, MSc Unavailable Danuta Patel MD Unavailable [phone] Encounter Details Date Type Department Care Team (Late st Contact Info) Description 08/19/2018 Procedure Pass [facility] [address] [place] [address] Social History Tobacco Use Types Packs/Day Years Used Date Smoking Tobacco: Former Cigarettes 0.3 2 1 962 - 3070 Smokeless Tobacco: Never Alcohol Use Standard Drinks/Week [...] Contact Info) Description 07/29/2025 Procedure Pass [facility] Imaging Department, [facility], [place] [address] [facility], Floor [address]1 [place] [address] 07/29/2025 Procedure Pass [facility] Imaging Department, [facility] [place] [address] [facility], Floor [address] [place] [address] 07/31/2026 1:40 PM EDT Appointment [facility] Imaging Department, [facility], [place] [address] [facility], Floor [address] [place] [address] Danuta Patel MD [address] [place] [address] Agnes@[facility] 08/04/2026 10:30 AM EDT [facility], [address], 6th [place] [address] Danuta Patel MD [address] [place] [address] Agnes@[facility] documented as of [...] documented as of this encounter Care Teams Senior Merchandiser Relationship Specialty Start Date End Date Chiara Diggs MD [address] [place] [address] Drive [address] [place] [phone] PCP - General Internal Medicine 07/25/18 Joelle Grande MD, MSc [address] [place] [address] JOSÉ MANUEL@[facility] Surgeon Surgical Oncology 08/15/18 Oly Kraus MD, MPH [address] [place] [address] Lolis@[facility] Primary Oncologist Radiation Oncology 08/15/18 Valerie Conti MD [address] [place] [address] Mariusz@[facility] Primary Oncologist Medical Oncology 08/15/18 04/11/20 Daryn Donohue MD [address] [place] [address] Referring Physician Urology 08/19/18 Savanna Banegas [address] [place] [address] [email or web address] State Appellate Clerk 08/19/18 Sindy Isaacs, [address] [address] [email or web address]@[email or web address] Hair Or Beauty Salon Assistant Oncology 09/16/18 07/25/19 Cedricgracia Galaviz Paulina, [address] [address] [email or web address] Hair Or Beauty Salon Assistant 12/26/18 Arlin Cherry, [address] [address] Maykel@[facility] Hair Or Beauty Salon Assistant Oncology 07/26/19 Shun Schuster MD Rohan@[email or web address] Primary Oncologist Medical Oncology 04/12/20 06/21/21 Jaspal Ordoñez MD [address] [place] [address] [email or web address] Palliative Care 12/22/20 Joelle Grande MD, MSc [address] [place] [address] JOSÉ MANUEL@[facility] Surgical Oncology 03/07/21 Danuta Patel MD [address] [place] [address] Agnes@[facility] Medical Oncology 06/22/21 documented as of this encounter Additional Source Comments The information contained in this document represents components of the legal health record. It is not the complete legal health record.[facility]
--- OUTSIDE RECORDS SUMMARY | 2025-11-03 12:31 | XMS_ITS | Encounter Summary ---
Author Organization [facility] Address [address] [place] [address] Phone Care Team Providers Care Freight Conductor Name Role Phone Chiara Diggs MD Primary Care Provider [phone] Joelle Grande MD, MSc Unavailable Oly Kraus MD, MPH Unavailable + [phone] Valerie Conti MD Unavailable [phone] Daryn Donohue MD Unavailable Savanna Banegas Unavailable Sindy Isaacs LABORATORY SPECIALIST Unavailable [phone] Cris Aburto LABORATORY SPECIALIST Unavailable [phone] Arlin Cherry LABORATORY SPECIALIST Unavailable [phone] Shun Schuster MD Unavailable Portia [email or web address] Jaspal Pettit MD Unavailable Joelle Grande MD, MSc Unavailable Danuta Patel MD Unavailable [phone] Encounter Details Date Type Department Care Team (Late st Contact Info) Description 08/15/2018 Procedure Pass [facility] [address] [place] [address] Social History Tobacco Use Types Packs/Day Years Used Date Smoking Tobacco: Former Cigarettes 0.3 2 1 962 - 1817 Smokeless Tobacco: Never Alcohol Use Standard Drinks/Week [...] Pass [facility] Imaging Department, [facility], [place] [address] [facility], Floor [address] [place] [address] 07/29/2025 Procedure Pass [facility] Imaging Department, [facility], [place] [address] [facility], Floor [address] [place] [address] 07/31/2026 1:40 PM EDT Appointment [facility] Imaging Department, [facility], [place] [address] [facility], [address] [place] [address] Danuta Patel MD [address] [place] [address] Agnes@[email or web address] 08/04/2026 10:30 AM EDT [facility], [address], 6th [place] [address] Danuta Patel MD [address] [place] [address] Agnes@[email or web address] documented as of this encounter Visit Diagnoses Not on filedocumented in this encounter Additional Health Concerns 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 02/28/2019 12/20/2022 1:[address] CoV-Presumed Comment:12/12: Symptom onset- fatigue, ST, cough, SOB 12/13: positive PCR outside lab (needs to be uploaded to [facility])- Yohana Noble RN 12/12/2021 12/13/2021 01/01/2022 1:[address] documented as of this encounter Care Teams Freight Conductor Relationship Specialty Start Date End Date Chiara Diggs MD [address] [place] [address] Drive [address] [place] [address] [phone] PCP - General Internal Medicine 07/25/18 Joelle Grande MD, MSc [address] [place] [address] JOSÉ MANUEL@[facility] Surgeon Surgical Oncology 08/15/18 Oly Kraus MD, MPH [address] [place] [address] Lolis@[facility] Primary Oncologist Radiation Oncology 08/15/18 Valerie Conti MD [address] [place] [address] Mariusz@[facility] Primary Oncologist Medical Oncology 08/15/18 04/11/20 Daryn Donohue MD [address] [place] [address] Referring Physician Urology 08/19/18 Savanna Banegas [address] [place] [address] NESTOR@[facility] Industrial Safety And Health Technician 08/19/18 Sindy Isaacs, [address] [address] [email or web address] Promotions Assistant Sales Marketing Oncology 09/16/18 07/25/19 Cris Aburto, [address] [address] [email or web address] Promotions Assistant Sales Marketing 12/26/18 Arlin Cherry, [address] [address] Maykel@[facility] Promotions Assistant Sales Marketing Oncology 07/26/19 Shun Schuster MD Rohan@[email or web address] Primary Oncologist Medical Oncology 04/12/20 06/21/21 Jaspal Ordoñez MD [address] [place] [address] [email or web address] Palliative Care 12/22/20 Joelle Grande MD, MSc [address] [place] [address] JOSÉ MANUEL@[facility] Surgical Oncology 03/07/21 Danuta Patel MD [address] [place] [address] Agnes@[facility] Medical Oncology 06/22/21 documented as of this encounter Additional Source Comments The information contained in this document represents components of the legal health record. It is not the complete legal health record.[facility]
--- OUTSIDE RECORDS SUMMARY | 2025-11-03 12:31 | XMS_ITS | Encounter Summary ---
Author Organization [facility] Address [address] [place] [address] Phone Care Team Providers Care Plate Shop Helper Name Role Phone Chiara Diggs MD Primary Care Provider [phone] Joelle Grande MD, MSc Unavailable Oly Kraus MD, MPH Unavailable + [phone] Valerie Conti MD Unavailable [phone] Daryn Donohue MD Unavailable Savanna Banegas Unavailable Sindy Isaacs [employer] Unavailable [phone] Cris Aburto [employer] Unavailable [phone] Arlin Cherry [employer] Unavailable [phone] Shun Schuster MD Unavailable Portia [email or web address] Jaspal Pettit MD Unavailable Joelle Grande MD, MSc Unavailable Danuta Patel MD Unavailable [phone] Encounter Details Date Type Department Care Team (Late st Contact Info) Description 02/19/2019 Procedure Pass [facility] Endoscopy Department [address] [place] [address] Social History Tobacco Use Types Packs/Day Years [...] Upcoming Encounters Date Type Department Care Team ([facility] st Contact Info) Description 07/29/2025 Procedure Pass [facility] Imaging Department, [facility], [place] [address] [facility], Floor [address] [place] [address] 07/29/2025 Procedure Pass [facility], [facility], [place] [address] [facility], Floor [address] [place] [address] 07/31/2026 1:40 PM EDT Appointment [facility] Imaging Department, [facility], [place] [address] [facility], Floor [address] [place] [address] Danuta Patel MD [address] [place] [address] Agnes@[facility] 08/04/2026 10:30 AM EDT [facility], [address], 6th [place] [address] Danuta Patel MD [address] [place] [address] Agnes@[facility] documented as of this encounter Visit [...] documented as of this encounter Care Teams Plate Shop Helper Relationship Specialty Start Date End Date Dontae, Chiara Crandall MD [address] [place] [address] Drive [address] [place] [address] [phone] PCP - General Internal Medicine 07/25/18 Joelle Grande MD, MSc [address] [place] [address] JOSÉ MANUEL@[facility] Surgeon Surgical Oncology 08/15/18 Oly Kraus MD, MPH [address] [place] [address] Lolis@[facility] Primary Oncologist Radiation Oncology 08/15/18 Valerie Conti MD [address] [place] [address] Mariusz@[email or web address] Primary Oncologist Medical Oncology 08/15/18 04/11/20 Daryn Donohue MD [address] [place] [address] Referring Physician Urology 08/19/18 Savanna Banegas [address] [place] [address] [email or web address] Oil Filters Inspector 08/19/18 Sindy Isaacs, [address] [address] Gregorio@[facility] Technical Advisor Oncology 09/16/18 07/25/19 Cris Aburto, [address] [address] [email or web address] Technical Advisor 12/26/18 Arlin Cherry, [address] [address] Maykel@[facility] Technical Advisor Oncology 07/26/19 Shun Schuster MD Rohan@[email or web address] Primary Oncologist Medical Oncology 04/12/20 06/21/21 Jaspal Ordoñez MD [address] [place] [address] [email or web address] Palliative Care 12/22/20 Joelle Grande MD, MSc [address] [place] [address] JOSÉ MANUEL@[facility] Surgical Oncology 03/07/21 Danuta Patel MD [address] [place] [address] Agnes@[facility] Medical Oncology 06/22/21 documented as of this encounter Additional Source Comments The information contained in this document represents components of the legal health record. It is not the complete legal health record.[facility]
--- OUTSIDE RECORDS SUMMARY | 2025-11-03 12:31 | XMS_ITS | Encounter Summary ---
Author Organization [facility] Address [address] [place] [address] Phone Care Team Providers Care Cashier Courtesy Booth Name Role Phone Chiara Diggs MD Primary Care Provider [phone] Joelle Grande MD, MSc Unavailable Oly Kraus MD, MPH Unavailable + [phone] Valerie Conti MD Unavailable [phone] Daryn Donohue MD Unavailable Savanna Banegas Unavailable Sindy Isaacs MARINE PROPULSION TECHNICIAN Unavailable [phone] Cris Aburto MARINE PROPULSION TECHNICIAN Unavailable [phone] Arlin Cherry MARINE PROPULSION TECHNICIAN Unavailable [phone] Shun Schuster MD Unavailable Portia [email or web address] Jaspal Pettit MD Unavailable Joelle Grande MD, MSc Unavailable Danuta Patel MD Unavailable [phone] Encounter Details Date Type Department Care Team (Late st Contact Info) Description 03/05/2019 Transcribe Orders [facility] [address] [place] [address] Chiara Diggs MD [address] [place] [address] [address] [place] [phone] Social History Tobacco Use Types Packs/Day [...] Info) Description 07/29/2025 Procedure Pass [facility] Imaging Department, [facility], [place] [address] [facility], Floor [address]1 [place] [address] 07/29/2025 Procedure Pass [facility] Imaging Department, [facility], [place] [address] [facility], Floor [address] [place] [address] 07/31/2026 1:40 PM EDT Appointment [facility] Imaging Department, [facility], [place] [address] [facility], Floor [address] [place] [address] Danuta Patel MD [address] [place] [address] Agnes@[facility] 08/04/2026 10:30 AM EDT [facility], [address], 6th [place] [address] Danuta Patel MD [address] [place] [address] Agnes@[facility] documented as of this encounter [...] documented as of this encounter Care Teams Cashier Courtesy Booth Relationship Specialty Start Date End Date Po, Chiara Crandall MD [address] [place] [address] [address] [place] [phone] PCP - General Internal Medicine 07/25/18 Joelle Grande MD, MSc [address] [place] [address] JOSÉ MANUEL@[facility] Surgeon Surgical Oncology 08/15/18 Oly Kraus MD, MPH [address] [place] [address] Lolis@[facility] Primary Oncologist Radiation Oncology 08/15/18 Valerie Conti MD [address] [place] [address] Mariusz@[facility] Primary Oncologist Medical Oncology 08/15/18 04/11/20 Daryn Donohue MD [address] [place] [address] Referring Physician Urology 08/19/18 Savanna Banegas [address] [place] [address] NESTOR@[email or web address] Human Resources Safety Manager 08/19/18 Sindy Isaacs, [address] [address] Gregorio@[facility] Bulldozer Press Operator Oncology 09/16/18 07/25/19 Cris Aburto, [address] [address] [email or web address]@[facility] Bulldozer Press Operator 12/26/18 Arlin Cherry, [address] [address] Maykel@[facility] Bulldozer Press Operator Oncology 07/26/19 Shun Schuster MD Rohan@[facility] Primary Oncologist Medical Oncology 04/12/20 06/21/21 Jaspal Ordoñez MD [address] [place] [address] [email or web address] Palliative Care 12/22/20 Joelle Grande MD, MSc [address] [place] [address] JOSÉ MANUEL@[facility] Surgical Oncology 03/07/21 Danuta Patel MD [address] [place] [address] Agnes@[facility] Medical Oncology 06/22/21 documented as of this encounter Additional Source Comments The information contained in this document represents components of the legal health record. It is not the complete legal health record.[facility]
[2025-11-03 12:33] LABS: Folate 11.4 ng/mL (> or = 4.0); Vitamin B12 907 pg/mL (200-900)
[2025-11-03 12:38] LABS: Free T4 (Free Thyroxine) 1.26 ng/dL (0.71-1.85); Thyroid Stimulating Hormone 5.42 uIU/mL (0.32-4.0)
== END 2025-11-03 09:42 ==
LOC: HO.LAB 09:41
PROVIDERS: PCP Internal Medicine; Visit Provider Internal Medicine
DX: R73.01 Impaired fasting glucose (principal); E78.00 Pure hypercholesterolemia, unspecified; R30.0 Dysuria; Z13.21 Encounter for screening for nutritional disorder
CPT/HCPCS: 36415; 80053; 80061; 81003; 82306; 82607; 82746; 83036; 83735; 84439; 84443; 84550; 85025